=== PATIENT | male | born 1965 | race Caucasian/White ===

== ENCOUNTER 2020-02-18 18:09 | Emergency (ER) | payer OTHER ==
[2020-02-18 18:17] VITALS: BP 188/98; PULSE 86; RESP 16; TEMP 98.2
== END 2020-02-18 19:05 ==
LOC: EC 18:09
DX: Z02.89 Encounter for other administrative examinations (principal); Y99.0 Civilian activity done for income or pay
CPT/HCPCS: 99499

== ENCOUNTER 2020-08-17 12:06 | Emergency (ER) | payer OTHER ==
[2020-08-17 12:16] VITALS: RESP 18
[2020-08-17] MEDS ORDERED: ACET/COD 300 MG/30 MG STARTER PACK 6 TAB BTL PO STA (12:22)
[2020-08-17] MEDS ORDERED: KETOROLAC 15 MG/ML 1 ML VIAL IM STA (12:22)
--- NOTE | 2020-08-17 12:40 | ED ---
Fall HPI - General Chief Complaint: Fall Stated Complaint: [facility] - fall Time Seen by Provider: 08/17/20 12:17 Source: patient Mode of arrival: ambulatory - History of Present Illness Initial Comments: 55yo male presenting for fall low back pain. .pt states today he was getting out his work vehicle when he slipped on ice and fell onto his tailbone, he states his head hit the ground after his buttom. he denies LOC or use of blood thinners. he states that he did not notice any lumps/lacerations. states the area is somewhat tender to palpation. patient states that he came to the ER for evaluation of low back pain. patient denies radiation down legs, leg weakness, sensation deficits, urinary retention, loss of bowel badder control, IVDU, hx of cancer or fevers. pt denies neck pain, nausesa, vomiting, visual changes, headaches, patient appears nontoxic denies other areas of injury on arrival. - Related Data Home Medications Medication Instructions Recorded Confirmed Albuterol Nebulized [Ventolin 2.5 mg INHALATION RT-Q4H PRN 02/18/20 08/17/20 Nebulized] Albuterol Sulfate [Ventolin HFA] 1 - 2 puff INHALATION RT-Q6H PRN 02/18/20 1 10/18/19 Fluticasone/Umeclidin/Vilanter 1 puff INHALATION RT-DAILY 02/18/20 08/17/20 [Trelegy Ellipta 100-62.5-25] lisinopriL [Zestril] 20 mg PO DAILY 02/18/20 08/17/20 Fexofenadine HCl [Jordyn Allergy] 180 mg PO DAILY 08/17/20 08/17/20 Allergies Allergy/AdvReac Type Severity Reaction Status Date / Time ampicillin Allergy Unknown Verified 08/17/20 13:01 Review of Systems ROS Statement: Those systems with pertinent positive or pertinent negative responses have been documented in the HPI. ROS Other: All systems not noted in ROS Statement are negative. Past Medical History Past Medical History: COPD, Hypertension History of Any Multi-Drug Resistant Organisms: None Reported Past Surgical History: Tonsillectomy Past Psychological History: No Psychological Hx Reported Smoking Status: Current some day smoker Past Alcohol Use History: Daily Past Drug Use History: None Reported General Exam - General Exam Comments Initial Comments: General: The patient is awake and alert, in no distress, and does not appear acutely ill. Eye: Pupils are equal, round and reactive to light, extra-ocular movements are intact. No nystagmus. There is normal conjunctiva bilaterally. No signs of icterus. Ears, nose, mouth and throat: There are moist mucous membranes and no oral lesions. Neck: The neck is supple, there is no tenderness or JVD. No midline tenderness to palpation the cervical spine full range motion cervical spine without difficulty. No raccoon or Barksdale sign Cardiovascular: There is a regular rate and rhythm. No murmur, rub or gallop is appreciated. Respiratory: Lungs are clear to auscultation, respirations are non-labored, breath sounds are equal. No wheezes, stridor, rales, or rhonchi. Gastrointestinal: Soft, non-distended, non-tender abdomen without masses or organomegaly noted. There is no rebound or guarding present. Musculoskeletal: Patient has a midline tenderness to patient of the lumbar spine as well as para spinal tenderness. No skin changes. No flank pain or ecchymosis. Normal ROM, no tenderness. Strength 5/5 of the LE b/l. Sensation intact of the LE b/l. Radial pulses equal bilaterally 2+. Neurological: A&O x 3. CN II-XII intact, There are no obvious motor or sensory deficits. Coordination appears grossly intact. Speech is normal. Skin: Skin is warm and dry and no rashes or lesions are noted. Psychiatric: Cooperative, appropriate mood & affect, normal judgment. Limitations: no limitations Course Vital Signs 08/17/20 08/17/20 12:12 14:24 Temperature 98.4 F 98.2 F Pulse Rate 96 85 Respiratory 18 18 Rate Blood Pressure 162/84 129/79 O2 Sat by Pulse 94 L Oximetry Medical Decision Making - Medical Decision Making Refused head imaging. No midline neck pain. no occipital or scalp hematomas. no blood thinners. pt imaging of spine no acute osseous process evident. patient ambulatory with complaining of no symptoms/signs concerning for cauda equina. pt urinated while in ER. Ambulatory he is agreeable to discharge [facility] PCP f/u. Disposition Clinical Impression: Fall, Coccygeal pain, Low back pain, Fall from slipping on ice Disposition: HOME SELF-CARE Condition: Good Instructions (If sedation given, give patient instructions): Low Back Strain (ED) Is patient prescribed a controlled substance at d/c from ED?: No Referrals: Wolf Irizarry MD [Primary Care Provider] - 1-2 days
--- NOTE | 2020-08-17 13:48 | XR ---
EXAMINATION TYPE: XR lumbar spine 2 or 3V DATE OF EXAM: 08/17/2020 COMPARISON: None HISTORY: Pain fall TECHNIQUE: There 5 lumbar-type vertebral bodies. FINDINGS: Pedicles are intact. L5-S1 disc height is narrowed. Remaining disc heights are preserved. Vertebral body heights are preserved. Alignment is normal. IMPRESSION: 1. Loss of disc height L5-S1
--- NOTE | 2020-08-17 13:49 | XR ---
EXAMINATION TYPE: XR sacrum coccyx DATE OF EXAM: 08/17/2020 COMPARISON: None HISTORY: Fall, pain TECHNIQUE: Sacrum and coccyx are examined in 3 projections. FINDINGS: Sacroiliac joints are patent. The sacrum appears intact. Coccyx appears normal. No acute fr actures are evident. There is loss of disc height L5-S1. IMPRESSION: 1. Loss of disc height at L5-S1. Sacrum and coccyx appear intact
[2020-08-17 14:27] VITALS: BP 129/79; PULSE 85; TEMP 98.2
== END 2020-08-17 14:27 | disposition home or self-care (01) ==
LOC: EC 12:06
DX: M53.3 Sacrococcygeal disorders, not elsewhere classified (principal); M54.5 Low back pain; F17.200 Nicotine dependence, unspecified, uncomplicated; Z88.0 Allergy status to penicillin; J44.9 Chronic obstructive pulmonary disease, unspecified; I10 Essential (primary) hypertension; Z79.51 Long term (current) use of inhaled steroids; Z79.899 Other long term (current) drug therapy; W00.0XXA Fall on same level due to ice and snow, initial encounter; Y93.89 Activity, other specified; Y92.69 Other specified industrial and construction area as the place of occurrence of the external cause; Y99.0 Civilian activity done for income or pay
CPT/HCPCS: 72100; 72220; 96372; 99283; J1885

== ENCOUNTER 2020-10-27 05:51 | Inpatient (IN) | payer OTHER ==
[2020-10-27] MEDS ORDERED: IPRATROPIUM-ALBUTEROL 3 ML NEB INHALATION STA ×2 (06:04→06:44)
[2020-10-27 06:28] LABS: Basophils % (A) 0 %; Eosinophils # (A) 0.3 k/uL (0-0.7); Eosinophils % (A) 2 %; HCT 45.6 % (39.0-53.0); HGB 14.7 gm/dL (13.0-17.5); Lymphocytes # (A) 0.7 k/uL (1.0-4.8); Lymphocytes % (A) 4 %; MCH 29.7 pg (25.0-35.0); MCHC 32.3 g/dL (31.0-37.0); MCV 91.8 fL (80.0-100.0); Mean Platelet Volume 7.4; Monocytes # (A) 0.1 k/uL (0-1.0); Monocytes % (A) 1 %; Neutrophils % (A) 93 %; Platelet Count 347 k/uL (150-450); RBC 4.97 m/uL (4.30-5.90); RDW 12.8 % (11.5-15.5); WBC 17.2 k/uL (3.8-10.6)
[2020-10-27 06:40] LABS: ALT 33 U/L (4-49); AST 33 U/L (17-59); African American GFR (CKD) >90 (>60 ml/min/1.73 sqM); Albumin 4.2 g/dL (3.5-5.0); Alkaline Phosphatase 156 U/L (38-126); Anion Gap 6 mmol/L; Blood Urea Nitrogen 21 mg/dL (9-20); Calcium 8.7 mg/dL (8.4-10.2); Carbon Dioxide 35 mmol/L (22-30); Chloride 88 mmol/L (98-107); Glucose 191 mg/dL (74-99); Non-African American GFR(CKD) >90 (>60 ml/min/1.73 sqM); Potassium 5.5 mmol/L (3.5-5.1); Sodium 129 mmol/L (137-145); Total Bilirubin 0.7 mg/dL (0.2-1.3); Total Protein 7.9 g/dL (6.3-8.2)
[2020-10-27 06:42] LABS: INR 1.1 (<1.2); Partial Thromboplastin Time 49.1 sec (22.0-30.0); Prothrombin Time 11.2 sec (9.0-12.0)
[2020-10-27] MEDS ORDERED: IPRATROPIUM-ALBUTEROL 3 ML NEB INHALATION PRN (06:45)
--- NOTE | 2020-10-27 06:45 | ED ---
General Adult HPI - General Chief complaint: Shortness of Breath Stated complaint: CHERI Time Seen by Provider: 10/27/20 06:05 Source: patient, EMS Mode of arrival: EMS Limitations: no limitations - History of Present Illness Initial comments: 55-year-old male with history of COPD, antitrypsin deficiency(?). presenting for cc of dyspnea. Patient states that he has had shortest of breath for the past 4 days he states his DuoNeb treatments are not working but he feels wheezy and tight like his previous COPD exacerbations. Patient states he believes he has antitrypsin deficiency and he does follow pulmonology. Patient states that after 4 days of no improvement do not be presented to [facility]. Patient states he also had a slight cough with sputum production. He states at times after the epidural treatments he had some tightness in his chest. Patient states they always make him feel anxious. At [facility] patient had cardiac enzymes performed which revealed mild elevation at 0.071 troponin, BNP was within normal limits CT and she O for pulmonary embolism revealed no aneurysms, pulmonary embolism's however there was some nodular abnormalities which they stated were more consistent with infectious etiology. Patient does h ave mild leukocytosis he is afebrile, does not appear toxic. He was initiated on heparin at [facility] prior to transfer. - Related Data Home Medications Medication Instructions Recorded Confirmed Albuterol Nebulized [Ventolin 2.5 mg INHALATION RT-Q4H PRN 02/18/20 08/17/20 Nebulized] Albuterol Sulfate [Ventolin HFA] 1 - 2 puff INHALATION RT-Q6H PRN 02/18/20 08/17/20 Fluticasone/Umeclidin/Vilanter 1 puff INHALATION RT-DAILY 02/18/20 08/17/20 [Trelegy Ellipta 100-62.5-25] lisinopriL [Zestril] 20 mg PO DAILY 02/18/20 08/17/20 Fexofenadine HCl [Jordyn Allergy] 180 mg PO DAILY 08/17/20 08/17/20 Allergies Allergy/AdvReac Type Severity Reaction Status Date / Time ampicillin Allergy Unknown Verified 08/17/20 13:01 Review of Systems ROS Statement: Those systems with pertinent positive or pertinent negative responses have been documented in the HPI. ROS Other: All systems not noted in ROS Statement are negative. Past Medical History Past Medical History: COPD, Hypertension History of Any Multi-Drug Resistant Organisms: None Reported Past Surgical History: Tonsillectomy Past Psychological History: No Psychological Hx Reported Smoking Status: Former smoker Past Alcohol Use History: Occasional Past Drug Use History: None Reported General Exam - General Exam Comments Initial Comments: General: The patient is awake and alert, in no distress Eye: +3 mm pupils are equal, round and reactive to light, extra-ocular movements are intact. No nystagmus. There is normal conjunctiva bilaterally. No signs of icterus. Ears, nose, mouth and throat: There are moist mucous membranes and no oral lesions. Neck: The neck is supple, there is no tenderness or JVD. Cardiovascular: There is a regular rate and rhythm. No murmur, rub or gallop is appreciated. Respiratory: Normal air movement. are slightly labored when talking, improved at rest, breath sounds are equal. faint expiratory wheeze appreciated however all over there is minimal movement limiting assessment. Gastrointestinal: Soft, non-distended, non-tender abdomen without masses or organomegaly noted. There is no rebound or guarding present. Musculoskeletal: Normal ROM, no tenderness. Strength 5/5. Sensation intact. Radial and DP pulses equal bilaterally 2+. Neurological: A&O x 3. CN II-XII intact grossly, There are no obvious motor or sensory deficits. Coordination appears grossly intact. Speech is normal. Skin: Skin is warm and dry and no rashes or lesions are noted. No calf pain, no LE edema. Psychiatric: Cooperative, appropriate mood & affect, normal judgment. Limitations: no limitations Course Vital Signs 10/27/20 10/27/20 10/27/20 05:53 06:11 06:17 Temperature 97.6 F Pulse Rate 101 H 96 100 Respiratory 18 Rate Blood Pressure 124/89 O2 Sat by Pulse 93 L Oximetry 10/27/20 06:49 Temperature Pulse Rate 98 Respiratory 20 Rate Blood Pressure O2 Sat by Pulse Oximetry Medical Decision Making - Medical Decision Making Troponin repeat (-). Patient physical exam most consistent with COPD exacerbation, minimal air movement, wheeze appreciated. patient case discussed [facility] Cardiology given anteriolateral EKG findings. Dr. Pope spoke with Dr Roberto saeed. At this time we will admit patient for further monitoring and treatment of suspected COPD exacerbation. - Lab Data Result diagrams: 10/27/20 06:12 10/27/20 06:12 Lab Results 10/27/20 10/27/20 10/27/20 Range/Units 06:12 06:12 06:12 WBC 17.2 H (3.8-10.6) k/uL RBC 4.97 (4.30-5.90) m/uL Hgb 14.7 (13.0-17.5) gm/dL Hct 45.6 (39.0-53.0) % MCV 91.8 (80.0-100.0) fL MCH 29.7 (25.0-35.0) pg MCHC 32.3 (31.0-37.0) g/dL RDW 12.8 (11.5-15.5) % Plt Count 347 (150-450) k/uL MPV 7.4 Neutrophils % 93 % Lymphocytes % 4 % Monocytes % 1 % Eosinophils % 2 % Basophils % 0 % Neutrophils # 16.0 H (1.3-7.7) k/uL Lymphocytes # 0.7 L (1.0-4.8) k/uL Monocytes # 0.1 (0-1.0) k/uL Eosinophils # 0.3 (0-0.7) k/uL Basophils # 0.0 (0-0.2) k/uL PT 11.2 (9.0-12.0) sec INR 1.1 (<1.2) APTT 49.1 H (22.0-30.0) sec Sodium 129 L (137-145) mmol/L Potassium 5.5 H (3.5-5.1) mmol/L Chloride 88 L (98-107) mmol/L Carbon Dioxide 35 H (22-30) mmol/L Anion Gap 6 mmol/L BUN 21 H (9-20) mg/dL Creatinine 0.47 L (0.66-1.25) mg/dL Est GFR (CKD-EPI)AfAm >90 (>60 ml/min/1.73 sqM) Est GFR (CKD-EPI)NonAf >90 (>60 ml/min/1.73 sqM) Glucose 191 H (74-99) mg/dL Plasma Lactic Acid Andrei (0.7-2.0) mmol/L Calcium 8.7 (8.4-10.2) mg/dL Total Bilirubin 0.7 (0.2-1.3) mg/dL AST 33 (17-59) U/L ALT 33 (4-49) U/L Alkaline Phosphatase 156 H (38-126) U/L Troponin I (0.000-0.034) ng/mL Total Protein 7.9 (6.3-8.2) g/dL Albumin 4.2 (3.5-5.0) g/dL 10/27/20 10/27/20 Range/Units 06:12 06:12 WBC (3.8-10.6) k/uL RBC (4.30-5.90) m/uL Hgb (13.0-17.5) gm/dL Hct (39.0-53.0) % MCV (80.0-100.0) fL MCH (25.0-35.0) pg MCHC (31.0-37.0) g/dL RDW (11.5-15.5) % Plt Count (150-450) k/uL MPV Neutrophils % % Lymphocytes % % Monocytes % % Eosinophils % % Basophils % % Neutrophils # (1.3-7.7) k/uL Lymphocytes # (1.0-4.8) k/uL Monocytes # (0-1.0) k/uL Eosinophils # (0-0.7) k/uL Basophils # (0-0.2) k/uL PT (9.0-12.0) sec INR (<1.2) APTT (22.0-30.0) sec Sodium (137-145) mmol/L Potassium (3.5-5.1) mmol/L Chloride (98-107) mmol/L Carbon Dioxide (22-30) mmol/L Anion Gap mmol/L BUN (9-20) mg/dL Creatinine (0.66-1.25) mg/dL Est GFR (CKD-EPI)AfAm (>60 ml/min/1.73 sqM) Est GFR (CKD-EPI)NonAf (>60 ml/min/1.73 sqM) Glucose (74-99) mg/dL Plasma Lactic Acid Andrei 1.2 (0.7-2.0) mmol/L Calcium (8.4-10.2) mg/dL Total Bilirubin (0.2-1.3) mg/dL AST (17-59) U/L ALT (4-49) U/L Alkaline Phosphatase (38-126) U/L Troponin I 0.024 (0.000-0.034) ng/mL Total Protein (6.3-8.2) g/dL Albumin (3.5-5.0) g/dL Disposition Clinical Impression: Dyspnea, COPD exacerbation, Troponin level elevated Disposition: ADMITTED IP TO THIS HOSP Condition: Stable Is patient prescribed a controlled substance at d/c from ED?: No Referrals: Wolf Irizarry MD [Primary Care Provider] - 1-2 days Time of Disposition: 06:45 Decision to Admit Reason: Admit from EC Decision Date: 10/27/20 Decision Time: 06:45
[2020-10-27] MEDS ORDERED: guaiFENesin 600 MG TABLET.ER PO SCH (09:00)
[2020-10-27] MEDS ORDERED: predniSONE 20 MG TAB PO SCH (09:00)
[2020-10-27] MEDS: SODIUM CHLORIDE 0.9% 1,000 ML IV SCH ×2 (09:24→21:09)
[2020-10-27] MEDS: IPRATROPIUM-ALBUTEROL 3 ML NEB INHALATION SCH ×5 (09:30→21:20)
[2020-10-27 11:09] LABS: Cholesterol 196 mg/dL (<200); HDL Cholesterol 67 mg/dL (40-60); LDL Cholesterol,Calculated 120 mg/dL (0-99); Triglycerides 47 mg/dL (<150)
--- NOTE | 2020-10-27 11:14 | ECHOF ---
Referral Reason:dyspnea, trop elev MEASUREMENTS -------- HEIGHT: 182.9 cm WEIGHT: 77.1 kg BP: 128/78 RVIDd: 2.9 cm (< 3.3) IVSd: 1.1 cm (0.6 - 1.1) LVIDd: 3.7 cm (3.9 - 5.3) LVPWd: 1.1 cm (0.6 - 1.1) IVSs: 1.6 cm LVIDs: 2.6 cm LVPWs: 1.6 cm LA Diam: 3.0 cm (2.7 - 3.8) Ao Diam: 3.4 cm (2.0 - 3.7) AV Cusp: 2.0 cm (1.5 - 2.6) MV EXCURSION: 14.837 mm (> 18.000) MV EF SLOPE: 88 mm/s (70 - 150) EPSS: 0.9 cm MV E Tomas: 0.76 m/s MV DecT: 170 ms MV A Tomas: 0.71 m/s MV E/A Ratio: 1.07 RAP: 5.00 mmHg RVSP: 36.37 mmHg FINDINGS -------- Sinus rhythm. This was a technically adequate study. The left ventricular size is normal. There is borderline concentric left ventricular hypertrophy. Overall left ventricular systolic function is normal with, an EF between 60 - 65 %. The right ventricle is normal in size. The left atrium is normal in size. The right atrium is normal in size. Interatrial and interventricular septum intact. The aortic valve is trileaflet and appears structurally normal. There is trace mitral regurgitation. Mild tricuspid regurgitation present. There is mild pulmonary hypertension. The right ventricular systolic pressure, as measured by Doppler, is 36.37mmHg. The pulmonic valve was not well visualized. The aortic root size is normal. Normal inferior vena cava with normal inspiratory collapse consistent with estimated right atrial pre ssure of 5 mmHg. There is no pericardial effusion. CONCLUSIONS -------- 1. The left ventricular size is normal. 2. There is borderline concentric left ventricular hypertrophy. 3. Overall left ventricular systolic function is normal with, an EF between 60 - 65 %. 4. There is trace mitral regurgitation. 5. Mild tricuspid regurgitation present. 6. There is mild pulmonary hypertension. 7. The right ventricular systolic pressure, as measured by Doppler, is 36.37mmHg. 8. There is no pericardial effusion. CONDITIONER TUMBLER: Caprice Hughes RDCS
--- NOTE | 2020-10-27 11:26 | P.CRDCN ---
History of Present Illness History of present illness: HISTORY OF PRESENTING ILLNESS This is a pleasant 55-year-old male past medical history significant for hypertension, COPD, alpha 1 antitrypsin and former nicotine dependence. He denies prior history of coronary artery disease and does not follow in the office with a director ambulatory. We have been asked to see in consultation for elevated troponin. He presented to [facility] with symptoms of shortness of breath and cough that has been going on for the previous one week and getting progressively worse. His symptoms are not improving using his home inhaler or nebulizers. His workup at [facility] included labs that revealed an elevated troponin of 0.071 and normal BNP. He was sent here for further evaluation. His troponin on arrival here was 0.024. He complains of chest discomfort at times when he is coughing. His pain is related to breathing. He has no exertional chest discomfort. He denies dizziness or palpitations. He follows with Dr. Gaytan. CAT scan of the chest was performed at [facility] that was negative for pulmonary embolism. Other laboratory data reviewed, WBC 17.2, hemoglobin 14.7, platelets 347, sodium 129, potassium 5.5 and creatinine 0.47. Chronic daily cardiac medications include lisinopril 20 mg daily. Echocardiogram obtained on this admission reveals preserved LV systolic function with ejection fraction 60-65%. EKG reveals sinus mechanism with no acute ST or T-wave abnormalities with biphasic P wave. REVIEW OF SYSTEMS At the time of my exam: CONSTITUTIONAL: Denies fever or chills. CARDIOVASCULAR: Denies chest pain, shortness of breath, orthopnea, PND or palpitations. RESPIRATORY: Denies cough. GASTROINTESTINAL: Denies abdominal pain, diarrhea, constipation, nausea or vomiting. MUSCULOSKELETAL: Denies myalgias. NEUROLOGIC: Denies numbness, tingling, headacbe or weakness. ENDOCRINE: Denies fatigue, weight change, polydipsia or polyurina. GENITOURINARY: Denies burning, hematuria or urgency with micturation. HEMATOLOGIC: Denies history of anemia or bleeding. PHYSICAL EXAMINATION Blood pressure 128/78 heart rate 92 afebrile and maintaining oxygen saturation on nasal cannula. CONSTITUTIONAL: No apparent distress. HEENT: Head is normocephalic. Pupils are equal, round. Sclerae anicteric. Mucous membranes of the mouth are moist. No JVD. No carotid bruit. CHEST EXAMINATION: Diminished air entry bilaterally, scattered rhonchi, no wheezes. No chest wall tenderness is noted on palpation or with deep breathing. HEART EXAMINATION: Regular rate and rhythm. S1, S2 heard. No murmurs, gallops or rub. ABDOMEN: Soft, nontender. Positive bowel sounds. EXTREMITIES: 2+ peripheral pulses, no lower extremity edema and no calf tenderness. NEUROLOGIC EXAMINATION: Patient is awake, alert and oriented x3. ASSESSMENT Shortness of breath Hypertension COPD Former nicotine dependence PLAN Mild troponin leak noted is not related to primary myocardial injury. Possibly related to some hypoxia however there is no documented hypoxia. No EKG changes to suggest ischemia. Echocardiogram has been reviewed, preserved LV systolic function with no wall motion abnormalities noted. Expect much of his shortness of breath is related to an exacerbation of COPD, awaiting pulmonary evaluation. Thank you kindly for this consultation. Nurse Practitioner note has been reviewed, I agree with a documented findings and plan of care. Patient was seen and examined. Past Medical History Past Medical History: Asthma, COPD, Hypertension Additional Past Medical History / Comment(s): Bronchitis, Alpha 1 antitrypsin deficiency, pancreatitis. History of Any Multi-Drug Resistant Organisms: None Reported Past Surgical History: Tonsillectomy Additional Past Surgical History / Comment(s): Colonoscopy Past Anesthesia/Blood Transfusion Reactions: No Reported Reaction Smoking Status: Former smoker - Past Family History Mother Family Medical History: Hypertension Additional Family Medical History / Comment(s): Hip/knee replacements. Mother in her sleep in her 70s. Father Family Medical History: CVA/TIA Additional Family Medical History / Comment(s): Father is . Medications and Allergies Home Medications Medication Instructions Recorded Confirmed Type Albuterol Nebulized [Ventolin 2.5 mg INHALATION RT-TID PRN 02/18/20 10/27/20 History Nebulized] Albuterol Sulfate [Ventolin HFA] 2 puff INHALATION RT-Q4H PRN 02/18/20 10/27/20 History Fluticasone/Umeclidin/Vilanter 1 puff INHALATION RT-DAILY 02/18/20 10/27/20 History [Trelegy Ellipta 100-62.5-25] lisinopriL [Zestril] 20 mg PO DAILY@1400 02/18/20 10/27/20 History Ascorbic Acid [Vitamin C] 500 mg PO DAILY 10/27/20 10/27/20 History Melatonin 5 mg PO HS 10/27/20 10/27/20 History Mirtazapine 7.5 mg PO HS 10/27/20 10/27/20 History Multivitamins, Thera [Multivitamin 1 tab PO DAILY 10/27/20 10/27/20 History (formulary)] Allergies Allergy/AdvReac Type Severity Reaction Status Date / Time ampicillin Allergy Unknown Verified 10/27/20 07:19 Childhood Penicillins Allergy Unknown Verified 10/27/20 07:19 Childhood Physical Exam Vitals: Vital Signs Temp Pulse Resp BP Pulse Ox 10/27/20 09:40 92 10/27/20 09:30 88 10/27/20 07:44 92 18 128/78 96 10/27/20 06:57 98 20 10/27/20 06:49 98 20 10/27/20 06:17 100 10/27/20 06:11 96 10/27/20 05:53 97.6 F 101 H 18 124/89 93 L Intake and Output 10/26/20 10/27/20 10/27/20 22:59 06:59 14:59 Other: # Voids 1 Weight 77.111 kg 77.111 kg Results 10/27/20 06:12 10/27/20 06:12 Cardiac Enzymes 10/27/20 10/27/20 Range/Units 06:12 06:12 AST 33 (17-59) U/L Troponin I 0.024 (0.000-0.034) ng/mL Coagulation 10/27/20 Range/Units 06:12 PT 11.2 (9.0-12.0) sec APTT 49.1 H (22.0-30.0) sec Lipids 10/27/20 Range/Units 06:12 Triglycerides 47 (<150) mg/dL Cholesterol 196 (<200) mg/dL HDL Cholesterol 67 H (40-60) mg/dL CBC 10/27/20 Range/Units 06:12 WBC 17.2 H (3.8-10.6) k/uL RBC 4.97 (4.30-5.90) m/uL Hgb 14.7 (13.0-17.5) gm/dL Hct 45.6 (39.0-53.0) % Plt Count 347 (150-450) k/uL Comprehensive Metabolic Panel 10/27/20 Range/Units 06:12 Sodium 129 L (137-145) mmol/L Potassium 5.5 H (3.5-5.1) mmol/L Chloride 88 L (98-107) mmol/L Carbon Dioxide 35 H (22-30) mmol/L BUN 21 H (9-20) mg/dL Creatinine 0.47 L (0.66-1.25) mg/dL Glucose 191 H (74-99) mg/dL Calcium 8.7 (8.4-10.2) mg/dL AST 33 (17-59) U/L ALT 33 (4-49) U/L Alkaline Phosphatase 156 H (38-126) U/L Total Protein 7.9 (6.3-8.2) g/dL Albumin 4.2 (3.5-5.0) g/dL Current Medications Generic Name Dose Route Start Last Admin Trade Name Freq PRN Reason Stop Dose Admin Albuterol/Ipratropium 3 ml 10/27/20 10:00 10/27/20 09:30 Ipratropium-Albuterol 3 Ml Neb INHALATION 3 ml Q3H CLAUDE Administration Albuterol/Ipratropium 3 ml 10/27/20 06:45 Ipratropium-Albuterol 3 Ml Neb INHALATION RT-Q4H PRN Shortness Of Breath Or Wheezing Ascorbic Acid 500 mg 10/27/20 11:15 Ascorbic Acid 500 Mg Tab PO DAILY [facility] Guaifenesin 1,200 mg 10/27/20 09:00 10/27/20 09:20 Guaifenesin 600 Mg Tablet.Er PO 1,200 mg Q12HR CLAUDE Administration Sodium Chloride 1,000 mls @ 75 mls/hr 10/27/20 07:00 10/27/20 09:24 Saline 0.9% IV 75 mls/hr .[id number] CLAUDE Administration Lisinopril 20 mg 10/27/20 14:00 Lisinopril 20 Mg Tab PO DAILY@1400 [facility] Melatonin 5 mg 10/27/20 21:00 Melatonin 5 Mg Tablet PO HS [facility] Mirtazapine 7.5 mg 10/27/20 21:00 Mirtazapine 15 Mg Tab PO HS [facility] Multivitamins 1 each 10/27/20 11:15 Multivitamins, Thera 1 Each Tab PO DAILY [facility] Prednisone 40 mg 10/27/20 09:00 10/27/20 09:20 Prednisone 20 Mg Tab PO 40 mg DAILY CLAUDE Administration Intake and Output 10/26/20 10/27/20 10/27/20 22:59 06:59 14:59 Other: # Voids 1 Weight 77.111 kg 77.111 kg Patient Weight 10/28/20 06:59 Weight 77.111 kg 10/27/20 06:12 10/27/20 06:12
--- NOTE | 2020-10-27 11:28 | P.CNPUL ---
History of Present Illness Consult date: 10/27/20 Requesting physician: Rigo Solomon Reason for consult: dyspnea, cough, COPD, hypoxemia Chief complaint: Shortness of breath History of present illness: 55-year-old male with a history of severe COPD. The patient was last seen by my partner in July 2020. In his note, my partner points out that the patient's FEV1 is 19% of predicted, and his diffusing capacity corrected for alveolar volu me is only 40%. Hence, the patient has stage IV/end-stage emphysema. The patient was brought to the emergency room by EMS. He arrived on 10/27/2020, at 05 51. His complaint was that of increasing shortness of breath. He been short of breath for about 4 days. He was using his updraft treatments at home but they were not working. He was quite tight in the chest, and was wheezing. He was also coughing and producing some phlegm. He denied any fever or chills. He denied any chest pain or chest discomfort. The patient was admitted with a diagnosis of COPD exacerbation. He was initially seen at [facility], and transferred down for further treatment. His family doctors here in [facility]. Currently, the patient is receiving oxygen at 5 L. He appears to be improved somewhat. He's feeling better and is less short of breath. 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 He did not qualify for replacement therapy. In addition to COPD, the patient has a history of hypertension. Review of Systems REVIEW OF SYSTEMS: CONSTITUTIONAL: [Negative.] NEUROLOGIC: [ Negative.] HEENT: [ Negative.] CARDIAC: [Negative.] PULMONARY: Severe shortness of breath, chest tightness, cough, wheezing, and minimal phlegm production. GI: [Negative.] : [Negative.] RHEUMATOLOGIC: [ Negative.] IMMUNOLOGIC: [ Negative.] ENDOCRINE: [Negative. ] DERMATOLOGIC: [Negative.] Past Medical History Past Medical History: Asthma, COPD, Hypertension Additional Past Medical History / Comment(s): Bronchitis, Alpha 1 antitrypsin deficiency, pancreatitis. History of Any Multi-Drug Resistant Organisms: None Reported Past Surgical History: Tonsillectomy Additional Past Surgical History / Comment(s): Colonoscopy Past Anesthesia/Blood Transfusion Reactions: No Reported Reaction Smoking Status: Former smoker - Past Family History Mother Family Medical History: Hypertension Additional Family Medical History / Comment(s): Hip/knee replacements. Mother in her sleep in her 70s. Father Family Medical History: CVA/TIA Additional Family Medical History / Comment(s): Father is . Medications and Allergies Home Medications Medication Instructions Recorded Confirmed Type Albuterol Nebulized [Ventolin 2.5 mg INHALATION RT-TID PRN 02/18/20 10/27/20 History Nebulized] Albuterol Sulfate [Ventolin HFA] 2 puff INHALATION RT-Q4H PRN 02/18/20 10/27/20 History Fluticasone/Umeclidin/Vilanter 1 puff INHALATION RT-DAILY 02/18/20 10/27/20 History [Trelecynthia Ellipta 100-62.5-25] lisinopriL [Zestril] 20 mg PO DAILY@1400 02/18/20 10/27/20 History Ascorbic Acid [Vitamin C] 500 mg PO DAILY 10/27/20 10/27/20 History Melatonin 5 mg PO HS 10/27/20 10/27/20 History Mirtazapine 7.5 mg PO HS 10/27/20 10/27/20 History Multivitamins, Thera [Multivitamin 1 tab PO DAILY 10/27/20 10/27/20 History (formulary)] Allergies Allergy/AdvReac Type Severity Reaction Status Date / Time ampicillin Allergy Unknown Verified 10/27/20 07:19 Childhood Penicillins Allergy Unknown Verified 10/27/20 07:19 Childhood Physical Exam Osteopathic Statement: *. No significant issues noted on an osteopathic structural exam other than those noted in the History and Physical/Consult. Vitals: Vital Signs Temp Pulse Resp BP Pulse Ox 10/27/20 09:40 92 10/27/20 09:30 88 10/27/20 07:44 92 18 128/78 96 10/27/20 06:57 98 20 10/27/20 06:49 98 20 10/27/20 06:17 100 10/27/20 06:11 96 10/27/20 05:53 97.6 F 101 H 18 124/89 93 L Intake and Output 10/26/20 10/27/20 10/27/20 22:59 06:59 14:59 Other: # Voids 1 Weight 77.111 kg 77.111 kg No acute distress, oriented 3. Nasal O2 in place. The patient appears to be bit confused. Not a particularly good historian. No conversational dyspnea, or audible wheezing. HEENT examination is grossly unremarkable. Mucous membranes are moist. No oral lesions. Neck supple. Full range of motion. No adenopathy thyromegaly or neck vein distention. Cardiovascular examination reveals regular rhythm rate. S1-S2 normal. No S3 or S4. No discernible murmur noted. Heart rate is 92 bpm. Lungs reveal severely diminished bilateral breath sounds. Some expiratory wheezes are noted. No rhonchi or crackles. There is prolongation on forced maneuver. Abdomen soft bowel sounds are heard. No masses or tenderness. Extremities are intact. No cyanosis clubbing or edema. Skin is without rash or lesion. Neurologic examination is brief but nonfocal. Results - Laboratory Findings CBC and BMP: 10/27/20 06:12 10/27/20 06:12 PT/INR, D-dimer PT 11.2 sec (9.0-12.0) 10/27/20 06:12 INR 1.1 (<1.2) 10/27/20 06:12 Abnormal lab findings: Abnormal Labs 10/27/20 10/27/20 10/27/20 06:12 06:12 06:12 WBC 17.2 H Neutrophils # 16.0 H Lymphocytes # 0.7 L APTT 49.1 H Sodium 129 L Potassium 5.5 H Chloride 88 L Carbon Dioxide 35 H BUN 21 H Creatinine 0.47 L Glucose 191 H Alkaline Phosphatase 156 H LDL Cholesterol, Calc HDL Cholesterol 10/27/20 06:12 WBC Neutrophils # Lymphocytes # APTT Sodium Potassium Chloride Carbon Dioxide BUN Creatinine Glucose Alkaline Phosphatase LDL Cholesterol, Calc 120 H HDL Cholesterol 67 H - Diagnostic Findings Chest x-ray: image reviewed Assessment and Plan Assessment: Acute hypoxemic respiratory failure, secondary to COPD exacerbation. Severe/stage IV/end-stage COPD, with an FEV1 that is 19% of predicted, and diffusing capacity corrected for alveolar volume which is 40%. Prior history of heavy tobacco use. History of essential hypertension. Plan: Plan dated 10/27/2020. The patient will need doing neb, 4 times a day and when necessary, Pulmicort 1 mg mixed with formoterol, 20 g, twice a day, and Solu-Medrol 60 mg every 6 hours. In addition, the patient should be placed on a short course of oral antibiotics. The patient has very severe/end-stage COPD, with an FEV1 that's 19% of predicted. The patient will need to follow up with Dr. Gaytan. He did see Dr. Gaytan last in July 2020. Additional recommendations and suggestions are forthcoming. We'll continue to follow make recommendations were appropriate. Prognosis is guarded. Time with Patient: Greater than 30
[2020-10-27] MEDS: ASCORBIC ACID 500 MG TAB PO SCH (12:52)
[2020-10-27] MEDS: ENOXAPARIN 40 MG/0.4 ML SYRINGE SQ SCH (12:52)
[2020-10-27] MEDS: MULTIVITAMINS, THERA 1 EACH TAB PO SCH (12:52)
[2020-10-27] MEDS: lisinopriL 20 MG TAB PO SCH (12:52)
[2020-10-27] MEDS: methylPREDNISolone SOD SUCCI 125 MG/2 ML VIAL IV SCH ×3 (12:53→23:33)
[2020-10-27] MEDS: DOXYCYCLINE 100 MG CAP PO SCH ×2 (12:53→22:21)
[2020-10-27 17:58] LABS: Glucose,Whole Blood 196 mg/dL (75-99)
[2020-10-27] MEDS: INSULIN ASPART (NovoLOG) 100 UNIT/ML VIAL SQ SCH (18:03)
[2020-10-27 20:06] LABS: Glucose,Whole Blood 207 mg/dL (75-99)
--- NOTE | 2020-10-27 20:45 | P.HPIM ---
History of Present Illness H&P Date: 10/27/20 Chief Complaint: Short of breath History of presenting complaint: This is a pleasant 55-year-old patient of Dr. Irizarry. Patient has a history of alpha-1 antitrypsin deficiency and is a neck smoker. Patient presents with 10 days of increasing shortness of breath and wheezing. Producing significant amount of sputum, green in color. Denies any fever and chills. Significant short of breath. Appetite has been okay. Admitted for the same. Pulmonary was consulted. Short of breath at rest Review of systems: GEN.: Tired EYES: None HEENT: None NECK: None RESPIRATORY: As above CARDIOVASCULAR: None GASTROINTESTINAL: None GENITOURINARY: None MUSCULOSKELETAL: None LYMPHATICS: None HEMATOLOGICAL: None PSYCHIATRY: None NEUROLOGICAL: None Past medical history to include: COPD, hypertension, alpha-1 antitrypsin deficiency, pancreatitis Social history: Patient started smoking 89 and stopped in 2019. He drink a bit heavy alcohol to the age of 27. . 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 EYES: Pupils equal. Conjunctiva normal. HEENT: External appearance of nose and ears normal, oral cavity grossly normal. NECK: JVD not raised; masses not palpable. HEART: First and second heart sounds are normal; no edema. LUNGS:[ Respiratory rate increased, decreased breath sounds prolonged expiration and wheezing, accessory muscles a working, not able to speak in full sentences. ABDOMEN: Soft, nontender, liver spleen not palpable, no masses palpable. PSYCH: [Alert and oriented x3; mood and affect slightly anxious. NEUROLOGICAL: Cranial nerves grossly intact; no facial asymmetry, power and sensation grossly intact. LYMPHATICS: No lymph nodes palpable in the axilla and neck INVESTIGATIONS, reviewed in the clinical context: White count 7.2 hemoglobin 14.7 potassium 5.5 bun 21 creatinine 0.47 EKG tracing personally reviewed by me-normal sinus rhythm, right axis deviation 2-D echocardiogram-EF 60-65% Assessment and plan: -Acute severe end-stage COPD exacerbation in an ex-smoker. Patient started on bronchodilators, IV steroids and inhaled steroids. Pulmonary consulted -Acute hypoxic respiratory failure secondary to COPD exacerbation. On supplemental oxygen 6 L -Alpha-1 antitrypsin deficiency -Essential hypertension, continue with lisinopril -Chronic insomnia continue with melatonin -DVT prophylaxis started on Lovenox Care was discussed with the patient. Questions answered. Expect the patient to be in the hospital for at least 2 nights given the severity of his present ation. Past Medical History Past Medical History: Asthma, COPD, Hypertension Additional Past Medical History / Comment(s): Bronchitis, Alpha 1 antitrypsin deficiency, pancreatitis. History of Any Multi-Drug Resistant Organisms: None Reported Past Surgical History: Tonsillectomy Additional Past Surgical History / Comment(s): Colonoscopy Past Anesthesia/Blood Transfusion Reactions: No Reported Reaction Smoking Status: Former smoker - Past Family History Mother Family Medical History: Hypertension Additional Family Medical History / Comment(s): Hip/knee replacements. Mother in her sleep in her 70s. Father Family Medical History: CVA/TIA Additional Family Medical History / Comment(s): Father is . Medications and Allergies Home Medications Medication Instructions Recorded Confirmed Type Albuterol Nebulized [Ventolin 2.5 mg INHALATION RT-TID PRN 02/18/20 10/27/20 History Nebulized] Albuterol Sulfate [Ventolin HFA] 2 puff INHALATION RT-Q4H PRN 02/18/20 10/27/20 History Fluticasone/Umeclidin/Vilanter 1 puff INHALATION RT-DAILY 02/18/20 10/27/20 History [Trelegy Ellipta 100-62.5-25] lisinopriL [Zestril] 20 mg PO DAILY@1400 02/18/20 10/27/20 History Ascorbic Acid [Vitamin C] 500 mg PO DAILY 10/27/20 10/27/20 History Melatonin 5 mg PO HS 10/27/20 10/27/20 History Mirtazapine 7.5 mg PO HS 10/27/20 10/27/20 History Multivitamins, Thera [Multivitamin 1 tab PO DAILY 10/27/20 10/27/20 History (formulary)] Allergies Allergy/AdvReac Type Severity Reaction Status Date / Time ampicillin Allergy Unknown Verified 10/27/20 07:19 Childhood Penicillins Allergy Unknown Verified 10/27/20 07:19 Childhood Physical Exam Vitals: Vital Signs Temp Pulse Resp BP Pulse Ox 10/27/20 09:40 92 10/27/20 09:30 88 10/27/20 07:44 92 18 128/78 96 10/27/20 06:57 98 20 10/27/20 06:49 98 20 10/27/20 06:17 100 10/27/20 06:11 96 10/27/20 05:53 97.6 F 101 H 18 124/89 93 L Intake and Output 10/26/20 10/27/20 10/27/20 22:59 06:59 14:59 Other: # Voids 1 Weight 77.111 kg 77.111 kg Results CBC & Chem 7: 10/27/20 06:12 10/27/20 06:12 Labs: Abnormal Lab Results - Last 24 Hours (Table) 10/27/20 10/27/20 10/27/20 Range/Units 06:12 06:12 06:12 WBC 17.2 H (3.8-10.6) k/uL Neutrophils # 16.0 H (1.3-7.7) k/uL Lymphocytes # 0.7 L (1.0-4.8) k/uL APTT 49.1 H (22.0-30.0) sec Sodium 129 L (137-145) mmol/L Potassium 5.5 H (3.5-5.1) mmol/L Chloride 88 L (98-107) mmol/L Carbon Dioxide 35 H (22-30) mmol/L BUN 21 H (9-20) mg/dL Creatinine 0.47 L (0.66-1.25) mg/dL Glucose 191 H (74-99) mg/dL Alkaline Phosphatase 156 H (38-126) U/L LDL Cholesterol, Calc (0-99) mg/dL HDL Cholesterol (40-60) mg/dL 10/27/20 Range/Units 06:12 WBC (3.8-10.6) k/uL Neutrophils # (1.3-7.7) k/uL Lymphocytes # (1.0-4.8) k/uL APTT (22.0-30.0) sec Sodium (137-145) mmol/L Potassium (3.5-5.1) mmol/L Chloride (98-107) mmol/L Carbon Dioxide (22-30) mmol/L BUN (9-20) mg/dL Creatinine (0.66-1.25) mg/dL Glucose (74-99) mg/dL Alkaline Phosphatase (38-126) U/L LDL Cholesterol, Calc 120 H (0-99) mg/dL HDL Cholesterol 67 H (40-60) mg/dL Thrombosis Risk Factor Assmnt - Choose All That Apply Any of the Below Risk Factors Present?: Yes Each Factor Represents 1 point: Abnormal pulmonary function (COPD), Age 41-60 years, Serious lung disease incl. pneumonia (< 1month) Other Risk Factors: No Other congenital or acquired thrombophilia - If yes, enter type in comment: No Thrombosis Risk Factor Assessment Total Risk Factor Score: 3 Thrombosis Risk Factor Assessment Level: Moderate Risk
[2020-10-27] MEDS: MIRTAZAPINE 15 MG TAB PO SCH (21:06)
[2020-10-27] MEDS: guaiFENesin 600 MG TABLET.ER PO SCH (21:06)
[2020-10-27] MEDS: MELATONIN 5 MG TABLET PO SCH (21:06)
[2020-10-27] MEDS: BUDESONIDE 1 MG/2 ML NEBU INHALATION SCH (21:12)
[2020-10-27] MEDS: FORMOTEROL FUMARATE 20 MCG/2 ML NEBU INHALATION SCH (21:12)
[2020-10-27 21:14] LABS: African American GFR (CKD) >90 (>60 ml/min/1.73 sqM); Anion Gap 12 mmol/L; Blood Urea Nitrogen 20 mg/dL (9-20); Calcium 8.9 mg/dL (8.4-10.2); Carbon Dioxide 30 mmol/L (22-30); Chloride 85 mmol/L (98-107); Glucose 248 mg/dL (74-99); Non-African American GFR(CKD) >90 (>60 ml/min/1.73 sqM); Potassium 5.1 mmol/L (3.5-5.1); Sodium 127 mmol/L (137-145)
[2020-10-28] MEDS: IPRATROPIUM-ALBUTEROL 3 ML NEB INHALATION SCH ×8 (01:14→21:17)
[2020-10-28 06:10] LABS: Glucose,Whole Blood 165 mg/dL (75-99)
[2020-10-28] MEDS: INSULIN ASPART (NovoLOG) 100 UNIT/ML VIAL SQ SCH ×4 (06:28→21:10)
[2020-10-28] MEDS: methylPREDNISolone SOD SUCCI 125 MG/2 ML VIAL IV SCH ×4 (06:28→23:10)
[2020-10-28] MEDS: FORMOTEROL FUMARATE 20 MCG/2 ML NEBU INHALATION SCH ×2 (07:24→21:17)
[2020-10-28] MEDS: BUDESONIDE 1 MG/2 ML NEBU INHALATION SCH ×2 (07:24→21:17)
[2020-10-28] MEDS: MULTIVITAMINS, THERA 1 EACH TAB PO SCH (08:11)
[2020-10-28] MEDS: ENOXAPARIN 40 MG/0.4 ML SYRINGE SQ SCH (08:11)
[2020-10-28] MEDS: SODIUM CHLORIDE 0.9% 1,000 ML IV SCH ×2 (08:11→23:09)
[2020-10-28] MEDS: DOXYCYCLINE 100 MG CAP PO SCH ×2 (08:11→21:09)
[2020-10-28] MEDS: guaiFENesin 600 MG TABLET.ER PO SCH ×4 (08:11→21:10)
[2020-10-28] MEDS: ASCORBIC ACID 500 MG TAB PO SCH (08:11)
[2020-10-28 09:27] LABS: African American GFR (CKD) >90 (>60 ml/min/1.73 sqM); Anion Gap 5 mmol/L; Blood Urea Nitrogen 14 mg/dL (9-20); Carbon Dioxide 39 mmol/L (22-30); Chloride 86 mmol/L (98-107); Glucose 154 mg/dL (74-99); Non-African American GFR(CKD) >90 (>60 ml/min/1.73 sqM); Potassium 5.1 mmol/L (3.5-5.1); Sodium 130 mmol/L (137-145)
--- NOTE | 2020-10-28 09:32 | P.PN ---
Subjective HISTORY OF PRESENTING ILLNESS This is a pleasant 55-year-old male past medical history significant for hypertension, COPD, alpha 1 antitrypsin and former nicotine dependence. He denies prior history of coronary artery disease and does not follow in the office with a rectifying attendant. He is seen and examined sitting up in bed eating breakfast in no acute distress. He continues to feel short of breath. He has no chest pain, dizziness or palpitations. Blood pressure 126/70 heart rate 107 afebrile maintaining oxygen saturation on nasal cannula. Laboratory data reviewed, troponin negative 2, sodium 1:30, potassium 5.1 and creatinine 0.51. Echocardiogram obtained reveals preserved LV systolic function with ejection fraction 60-65%. PHYSICAL EXAMINATION CONSTITUTIONAL: No apparent distress. HEENT: Head is normocephalic. Pupils are equal, round. Sclerae anicteric. Mucous membranes of the mouth are moist. No JVD. No carotid bruit. CHEST EXAMINATION: Diminished air entry bilaterally, scattered rhonchi, no wheezes. No chest wall tenderness is noted on palpation or with deep breathing. HEART EXAMINATION: Regular rate and rhythm. S1, S2 heard. No murmurs, gallops or rub. EXTREMITIES: 2+ peripheral pulses, no lower extremity edema and no calf tenderness. ASSESSMENT Shortness of breath Hypertension Advanced COPD with FeV1 19% Former nicotine dependence PLAN Clinically stable from a cardiac perspective. No evidence to suggest mild troponin leak was related to primary myocardial injury. Ongoing treatment for severe COPD. We will follow along as needed, please call with further questions or concerns. Nurse Practitioner note has been reviewed, I agree with a documented findings and plan of care. Patient was seen and examined. Objective - Vital Signs Vital signs: Vital Signs Temp 97.4 F L 10/28/20 08:00 Pulse 107 H 10/28/20 08:00 Resp 20 10/28/20 08:00 BP 126/70 10/28/20 08:00 Pulse Ox 93 L 10/28/20 08:00 Intake & Output 10/27/20 10/28/20 10/28/20 18:59 06:59 18:59 Intake Total 1560 1500 540 Balance 1560 1500 540 Weight 77.111 kg 68.2 kg Intake: Intake, IV Titration 600 900 Amount Sodium Chloride 0.9% 1, 600 900 000 ml @ 75 mls/hr IV . [id number] [facility] Rx#:[id number] Oral 960 600 540 Other: # Voids 1 4 - Labs CBC & Chem 7: 10/27/20 06:12 10/28/20 08:14 Labs: Abnormal Lab Results - Last 24 Hours (Table) 10/27/20 10/27/20 10/27/20 Range/Units 06:12 17:57 18:30 Sodium 127 L (137-145) mmol/L Chloride 85 L (98-107) mmol/L Carbon Dioxide (22-30) mmol/L Creatinine 0.52 L (0.66-1.25) mg/dL Glucose 248 H (74-99) mg/dL POC Glucose (mg/dL) 196 H (75-99) mg/dL LDL Cholesterol, Calc 120 H (0-99) mg/dL HDL Cholesterol 67 H (40-60) mg/dL 10/27/20 10/28/20 10/28/20 Range/Units 20:05 06:09 08:14 Sodium 130 L (137-145) mmol/L Chloride 86 L (98-107) mmol/L Carbon Dioxide 39 H (22-30) mmol/L Creatinine 0.51 L (0.66-1.25) mg/dL Glucose 154 H (74-99) mg/dL POC Glucose (mg/dL) 207 H 165 H (75-99) mg/dL LDL Cholesterol, Calc (0-99) mg/dL HDL Cholesterol (40-60) mg/dL
[2020-10-28] MEDS: lisinopriL 20 MG TAB PO SCH (11:48)
[2020-10-28 11:57] LABS: Glucose,Whole Blood 161 mg/dL (75-99)
--- NOTE | 2020-10-28 13:17 | P.PN ---
Subjective Progress Note Date: 10/28/20 Principal diagnosis: Dyspnea, cough, COPD, hypoxemia 55-year-old male with a history of severe COPD. The patient was last seen by my partner in July 2020. In his note, my partner points out that the patient's FEV1 is 19% of predicted, and his diffusing capacity corrected for alveolar volume is only 40%. Hence, the patient has stage IV/end-stage emphysema. The patient was brought to the emergency room by EMS. He arrived on 10/27/2020, at 05 51. His complaint was that of increasing shortness of breath. He been short of breath for about 4 days. He was using his updraft treatments at home but they were not working. He was quite tight in the chest, and was wheezing. He was also coughing and producing some phlegm. He denied any fever or chills. He denied any chest pain or chest discomfort. The patient was admitted with a diagnosis of COPD exacerbation. He was initially seen at [facility], and transferred down for further treatment. His family doc tors here in [facility]. Currently, the patient is receiving oxygen at 5 L. He appears to be improved somewhat. He's feeling better and is less short of breath. 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 He did not qualify for replacement therapy. In addition to COPD, the patient has a history of hypertension. On 10/28/2020 patient seen in follow-up. He is awake and she states he is breathing easier, still bronchospastic, still dyspneic, but breathing easier. Today he is on 5 L of oxygen pulse ox is 93-98%, afebrile, lung sounds reveal diminished breath sounds bilaterally, with scattered end expiratory wheezes. He is on nebulized bronchodilators, doxycycline, IV steroids Objective - Vital Signs Vital signs: Vital Signs Temp 97.4 F L 10/28/20 08:00 Pulse 97 10/28/20 11:52 Resp 18 10/28/20 11:52 BP 116/73 10/28/20 11:52 Pulse Ox 98 10/28/20 11:52 Intake & Output 10/27/20 10/28/20 10/28/20 18:59 06:59 18:59 Intake Total 1560 1500 540 Balance 1560 1500 540 Weight 77.111 kg 68.2 kg Intake: Intake, IV Titration 600 900 Amount Sodium Chloride 0.9% 1, 600 900 000 ml @ 75 mls/hr IV . [id number] [facility] Rx#:[id number] Oral 960 600 540 Other: # Voids 1 4 - Exam GENERAL EXAM: Alert, very pleasant, 55-year-old white male, on 5 L of oxygen, with pulse ox 93-98%, sitting up in bed, comfortable in no apparent distress. HEAD: Normocephalic/atraumatic. EYES: Normal reaction of pupils, equal size. Conjunctiva pink, sclera white. NOSE: Clear with pink turbinates. THROAT: No erythema or exudates. NECK: No masses, no JVD, no thyroid enlargement, no adenopathy. CHEST: No chest wall deformity. Symmetrical expansion. LUNGS: Diminished air entry with end expiratory wheezes CVS: Regular rate and rhythm, normal S1 and S2, no gallops, no murmurs, no rubs ABDOMEN: Soft, nontender. No hepatosplenomegaly, normal bowel sounds, no guarding or rigidity. EXTREMITIES: No clubbing, no edema, no cyanosis, 2+ pulses and upper and lower extremities. MUSCULOSKELETAL: Muscle strength and tone normal. SPINE: No scoliosis or deformity SKIN: No rashes CENTRAL NERVOUS SYSTEM: Alert and oriented -3. No focal deficits, tone is normal in all 4 extremities. PSYCHIATRIC: Alert and oriented -3. Appropriate affect. Intact judgment and insight. - Labs CBC & Chem 7: 10/27/20 06:12 10/28/20 08:14 Labs: Abnormal Lab Results - Last 24 Hours (Table) 10/27/20 10/27/20 10/27/20 Range/Units 17:57 18:30 20:05 Sodium 127 L (137-145) mmol/L Chloride 85 L (98-107) mmol/L Carbon Dioxide (22-30) mmol/L Creatinine 0.52 L (0.66-1.25) mg/dL Glucose 248 H (74-99) mg/dL POC Glucose (mg/dL) 196 H 207 H (75-99) mg/dL 10/28/20 10/28/20 10/28/20 Range/Units 06:09 08:14 11:56 Sodium 130 L (137-145) mmol/L Chloride 86 L (98-107) mmol/L Carbon Dioxide 39 H (22-30) mmol/L Creatinine 0.51 L (0.66-1.25) mg/dL Glucose 154 H (74-99) mg/dL POC Glucose (mg/dL) 165 H 161 H (75-99) mg/dL Assessment and Plan Plan: Assessment: Acute hypoxemic respiratory failure, secondary to COPD exacerbation. Severe/stage IV/end-stage COPD, with an FEV1 that is 19% of predicted, and diffusing capacity corrected for alveolar volume which is 40%. Prior history of heavy tobacco use. History of essential hypertension. Plan: Continue current medical treatment, continue steroids antibiotics, nebulized bronchodilators. Weaning FiO2, patient is doing better, however still dyspneic bronchospastic. Not ready for discharge, we'll continue with same medical treatment, follow-up CBC CMP in the morning, follow-up chest x-ray in the morning I performed a history & physical examination of the patient and discussed their management with my nurse practitioner, Elida Cardoso. I reviewed the nurse practitioner's note and agree with the documented findings and plan of care. Lung sounds are positive for diffuse wheezes throughout the lung miles. The findings and the impression was discussed with the patient. I attest to the documentation by the nurse practitioner. Time with Patient: Less than 30
[2020-10-28 17:02] LABS: Glucose,Whole Blood 169 mg/dL (75-99)
--- NOTE | 2020-10-28 18:50 | P.PN ---
Progress Note - Text Progress Note Date: 10/28/20 Chief Complaint: Short of breath History of presenting complaint: This is a pleasant 55-year-old patient of Dr. Irizarry. Patient has a history of alpha-1 antitrypsin deficiency and is a previous smoker. Patient presents with 10 days of increasing shortness of breath and wheezing. Producing significant amount of sputum, green in color. Denies any fever and chills. Significant short of breath. Appetite has been okay. Admitted for the same. Pulmonary was consulted. Short of breath at rest Admitted with severe COPD exacerbation and acute hypoxic respiratory failure. Started on nebulized bronchodilators, IV Solu-Medrol, oxygen and doxycycline. Today-sitting up in bed. She had improvement in the breathing and wheezing. Oral intake fair. Wheezing. Cough with sputum. Review of systems: Was done for constitutional, cardiovascular, GI, pulmonary. relevant finding as above Active Medications Albuterol/Ipratropium (Ipratropium-Albuterol 3 Ml Neb) 3 ml INHALATION Q3H [facility] Last Admin: 10/28/20 16:39 Dose: 3 ml Documented by: Albuterol/Ipratropium (Ipratropium-Albuterol 3 Ml Neb) 3 ml INHALATION RT-Q4H PRN PRN Reason: Shortness Of Breath Or Wheezing Ascorbic Acid (Ascorbic Acid 500 Mg Tab) 500 mg PO DAILY [facility] Last Admin: 10/28/20 08:11 Dose: 500 mg Documented by: Budesonide (Budesonide 1 Mg/2 Ml Nebu) 1 mg INHALATION RT-BID [facility] Last Admin: 10/28/20 07:24 Dose: 1 mg Documented by: Doxycycline Monohydrate (Doxycycline 100 Mg Cap) 100 mg PO BID [facility] Last Admin: 10/28/20 08:11 Dose: 100 mg Documented by: Enoxaparin Sodium (Enoxaparin 40 Mg/0.4 Ml Syringe) 40 mg SQ DAILY [facility] Last Admin: 10/28/20 08:11 Dose: 40 mg Documented by: Formoterol Fumarate (Formoterol Fumarate 20 Mcg/2 Ml Nebu) 20 mcg INHALATION RT-BID [facility] Last Admin: 10/28/20 07:24 Dose: 20 mcg Documented by: Guaifenesin (Guaifenesin 600 Mg Tablet.Er) 600 mg PO QID [facility] Last Admin: 10/28/20 17:19 Dose: 600 mg Documented by: Sodium Chloride (Saline 0.9%) 1,000 mls @ 75 mls/hr IV .[id number] [facility] Last Admin: 10/28/20 08:11 Dose: 75 mls/hr Documented by: Insulin Aspart (Insulin Aspart (Novolog) 100 Unit/Ml Vial) 0 unit SQ ACHS [facility]; Protocol Last Admin: 10/28/20 17:19 Dose: 2 unit Documented by: Lisinopril (Lisinopril 20 Mg Tab) 20 mg PO DAILY@1400 [facility] Last Admin: 10/28/20 11:48 Dose: 20 mg Documented by: Melatonin (Melatonin 5 Mg Tablet) 5 mg PO [facility] Last Admin: 10/27/20 21:06 Dose: 5 mg Documented by: Methylprednisolone Sodium Succinate (Methylprednisolone Sod Succi 125 Mg/2 Ml Vial) 60 mg IV Q6HR [facility] Last Admin: 10/28/20 17:19 Dose: 60 mg Documented by: Mirtazapine (Mirtazapine 15 Mg Tab) 7.5 mg PO [facility] Last Admin: 10/27/20 21:06 Dose: 7.5 mg Documented by: Multivitamins (Multivitamins, Thera 1 Each Tab) 1 each PO DAILY [facility] Last Admin: 10/28/20 08:11 Dose: 1 each Documented by: Past medical history to include: COPD, hypertension, alpha-1 antitrypsin deficiency, pancreatitis Social history: Patient started smoking 89 and stopped in 2019. He drink a bit heavy alcohol to the age of 27. . 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 Conjunctiva normal. HEENT: External appearance of nose and ears normal, oral cavity grossly normal. NECK: JVD not raised; masses not palpable. HEART: First and second heart sounds are normal; no edema. LUNGS:[ Respiratory rate increased, decreased breath sounds prolonged expiration and wheezing, ABDOMEN: Soft, nontender, liver spleen not palpable, no masses palpable. PSYCH: [Alert and oriented x3; mood and affect slightly anxious. INVESTIGATIONS, reviewed in the clinical context: October 28: Sodium 1:30 potassium 5.1 creatinine 0.51 White count 7.2 hemoglobin 14.7 potassium 5.5 bun 21 creatinine 0.47 EKG tracing personally reviewed by me-normal sinus rhythm, right axis deviation 2-D echocardiogram-EF 60-65% Assessment and plan: -Acute severe end-stage COPD exacerbation in an ex-smoker. on bronchodilators, IV steroids and inhaled steroids. -Slow to respond -Acute hypoxic respiratory failure secondary to COPD exacerbation. On supplemental oxygen 6 L-slow to respond -Alpha-1 antitrypsin deficiency -Essential hypertension, continue with lisinopril -Chronic insomnia continue with melatonin -DVT prophylaxis started on Lovenox -Hyponatremia likely from excessive water intake -Metabolic alkalosis from steroids Care was discussed with the patient.
[2020-10-28 21:04] LABS: Glucose,Whole Blood 166 mg/dL (75-99)
[2020-10-28] MEDS: MIRTAZAPINE 15 MG TAB PO SCH (21:09)
[2020-10-28] MEDS: MELATONIN 5 MG TABLET PO SCH (21:09)
[2020-10-29] MEDS: IPRATROPIUM-ALBUTEROL 3 ML NEB INHALATION SCH ×6 (02:59→19:48)
[2020-10-29 06:29] LABS: Glucose,Whole Blood 142 mg/dL (75-99)
[2020-10-29] MEDS: methylPREDNISolone SOD SUCCI 125 MG/2 ML VIAL IV SCH ×4 (06:40→23:05)
[2020-10-29] MEDS: INSULIN ASPART (NovoLOG) 100 UNIT/ML VIAL SQ SCH ×4 (06:41→20:20)
[2020-10-29 07:15] LABS: African American GFR (CKD) >90 (>60 ml/min/1.73 sqM); Anion Gap 3 mmol/L; Blood Urea Nitrogen 17 mg/dL (9-20); Calcium 8.9 mg/dL (8.4-10.2); Carbon Dioxide 39 mmol/L (22-30); Chloride 87 mmol/L (98-107); Glucose 145 mg/dL (74-99); Non-African American GFR(CKD) >90 (>60 ml/min/1.73 sqM); Potassium 4.9 mmol/L (3.5-5.1); Sodium 129 mmol/L (137-145)
[2020-10-29] MEDS: BUDESONIDE 1 MG/2 ML NEBU INHALATION SCH ×2 (07:49→19:47)
[2020-10-29] MEDS: FORMOTEROL FUMARATE 20 MCG/2 ML NEBU INHALATION SCH ×2 (07:49→19:47)
[2020-10-29] MEDS: DOXYCYCLINE 100 MG CAP PO SCH ×2 (08:23→20:20)
[2020-10-29] MEDS: SODIUM CHLORIDE 0.9% 1,000 ML IV SCH ×2 (08:23→23:06)
[2020-10-29] MEDS: ENOXAPARIN 40 MG/0.4 ML SYRINGE SQ SCH (08:23)
[2020-10-29] MEDS: MULTIVITAMINS, THERA 1 EACH TAB PO SCH (08:23)
[2020-10-29] MEDS: guaiFENesin 600 MG TABLET.ER PO SCH ×4 (08:23→20:21)
[2020-10-29] MEDS: ASCORBIC ACID 500 MG TAB PO SCH (08:23)
--- NOTE | 2020-10-29 11:18 | P.PN ---
Subjective History of presenting complaint: This is a pleasant 55-year-old patient of Dr. Irizarry. Patient has a history of alpha-1 antitrypsin deficiency and is a previous smoker. Patient presents with 10 days of increasing shortness of breath and wheezing. Producing significant amount of sputum, green in color. Denies any fever and chills. Significant short of breath. Appetite has been okay. Admitted for the same. Pulmonary was consulted. Short of breath at rest Admitted with severe COPD exacerbation and acute hypoxic respiratory failure. Started on nebulized bronchodilators, IV Solu-Medrol, oxygen and doxycycline. Today-sitting up in bed. She had improvement in the breathing and wheezing. Oral intake fair. Wheezing. Cough with sputum. Subjective: 10/29/2020 Patient was lying on his side in his bed, he feels better but is still short of breath with wheezing clear on auscultation. History of cough with some dark yellow phlegm. He has decreased air entry on both sides of the lung. He is also on 5 L oxygen via nasal cannula. With oxygen saturation is 95%, slightly tachycardic at 104. Labs showing mild hyponatremia at 129, creatinine 0.5, glucose is controlled. He has mild leukocytosis of 17.2 on admission. No sputum culture. Patient is on normal saline at 75 with a per hour, so Medrol 60 mg and doxycycline for antibiotics. Ejection fraction is 60-65% Review of systems CONSTITUTIONAL: No fever, no malaise, no fatigue. HEENT: No recent visual problems or hearing problems. Denied any sore throat. CARDIOVASCULAR: No orthopnea, PND, no palpitations, no syncope. PULMONARY: No chest wall tenderness, no hemoptysis. GASTROINTESTINAL: No diarrhea, no nausea, no vomiting, no abdominal pain. Normoactive bowel sounds. NEUROLOGICAL: No headaches, no weakness, no numbness. HEMATOLOGICAL: Denies any bleeding or petechiae. Active Medications Generic Name Dose Route Start Last Admin Trade Name Freq PRN Reason Stop Dose Admin Albuterol/Ipratropium 3 ml 10/27/20 06:45 Ipratropium-Albuterol 3 Ml Neb INHALATION RT-Q4H PRN Shortness Of Breath Or Wheezing Albuterol/Ipratropium 3 ml 10/29/20 08:00 10/29/20 07:49 Ipratropium-Albuterol 3 Ml Neb INHALATION 3 ml RT-QID [facility] Administration Ascorbic Acid 500 mg 10/27/20 11:15 10/29/20 08:23 Ascorbic Acid 500 Mg Tab PO 500 mg DAILY [facility] Administration Budesonide 1 mg 10/27/20 20:00 10/29/20 07:49 Budesonide 1 Mg/2 Ml Nebu INHALATION 1 mg RT-BID [facility] Administration Doxycycline Monohydrate 100 mg 10/27/20 21:00 10/29/20 08:23 Doxycycline 100 Mg Cap PO 100 mg BID [facility] Administration Enoxaparin Sodium 40 mg 10/27/20 12:30 10/29/20 08:23 Enoxaparin 40 Mg/0.4 Ml Syringe SQ 40 mg DAILY [facility] Administration Formoterol Fumarate 20 mcg 10/27/20 20:00 10/29/20 07:49 Formoterol Fumarate 20 Mcg/2 Ml Nebu INHALATION 20 mcg RT-BID [facility] Administration Guaifenesin 600 mg 10/27/20 22:00 10/29/20 08:23 Guaifenesin 600 Mg Tablet.Er PO 600 mg QID [facility] Administration Sodium Chloride 1,000 mls @ 75 mls/hr 10/27/20 07:00 10/29/20 08:23 Saline 0.9% IV 75 mls/hr .[id number] [facility] Administration Insulin Aspart 0 unit 10/27/20 21:00 10/29/20 06:41 Insulin Aspart (Novolog) 100 Unit/Ml Vial SQ 2 unit ACHS [facility] Administration Protocol Lisinopril 20 mg 10/27/20 14:00 10/28/20 11:48 Lisinopril 20 Mg Tab PO 20 mg DAILY@1400 [facility] Administration Melatonin 5 mg 10/27/20 21:00 10/28/20 21:09 Melatonin 5 Mg Tablet PO 5 mg HS [facility] Administration Methylprednisolone Sodium Succinate 60 mg 10/27/20 12:00 10/29/20 06:40 Methylprednisolone Sod Succi 125 Mg/2 Ml Vial IV 60 mg Q6HR [facility] Administration Mirtazapine 7.5 mg 10/27/20 21:00 10/28/20 21:09 Mirtazapine 15 Mg Tab PO 7.5 mg HS [facility] Administration Multivitamins 1 each 10/27/20 11:15 10/29/20 08:23 Multivitamins, Thera 1 Each Tab PO 1 each DAILY [facility] Administration Objective - Vital Signs Vital signs: Vital Signs Temp 97.6 F 10/29/20 08:00 Pulse 104 H 10/29/20 08:04 Resp 18 10/29/20 08:00 BP 133/67 10/29/20 08:00 Pulse Ox 95 10/29/20 08:00 Intake & Output 10/28/20 10/29/20 10/29/20 18:59 06:59 18:59 Intake Total 1012 1175 240 Balance 1012 1175 240 Weight 69.4 kg Intake: Intake, IV Titration 575 Amount Sodium Chloride 0.9% 1, 575 000 ml @ 75 mls/hr IV . [id number] [facility] Rx#:[id number] Oral 1012 600 240 Other: # Voids 1 3 - Exam GENERAL: The patient is alert and oriented x3, not in any acute distress. Well developed, well nourished. HEENT: Pupils are round and equally reacting to light. EOMI. No scleral icterus. No conjunctival pallor. Normocephalic, atraumatic. No pharyngeal erythema. No thyromegaly. CARDIOVASCULAR: S1 and S2 present. No murmurs, rubs, or gallops. -PULMONARY: Chest is clear to auscultation, expiratory wheezing and decreased air entry on both sides ABDOMEN: Soft, nontender, nondistended, normoactive bowel sounds. No palpable organomegaly. MUSCULOSKELETAL: No joint swelling or deformity. EXTREMITIES: No cyanosis, clubbing, or pedal edema. NEUROLOGICAL: Gross neurological examination did not reveal any focal deficits. SKIN: No rashes. no petechiae. - Labs CBC & Chem 7: 10/27/20 06:12 10/29/20 06:15 Labs: Abnormal Lab Results - Last 24 Hours (Table) 10/28/20 10/28/20 10/28/20 Range/Units 11:56 17:00 20:45 Sodium (137-145) mmol/L Chloride (98-107) mmol/L Carbon Dioxide (22-30) mmol/L Creatinine (0.66-1.25) mg/dL Glucose (74-99) mg/dL POC Glucose (mg/dL) 161 H 169 H 166 H (75-99) mg/dL 10/29/20 10/29/20 Range/Units 06:06 06:15 Sodium 129 L (137-145) mmol/L Chloride 87 L (98-107) mmol/L Carbon Dioxide 39 H (22-30) mmol/L Creatinine 0.56 L (0.66-1.25) mg/dL Glucose 145 H (74-99) mg/dL POC Glucose (mg/dL) 142 H (75-99) mg/dL Assessment and Plan Assessment: -Acute severe end-stage COPD exacerbation in an ex-smoker. on bronchodilators, IV steroids and inhaled steroids. Pulmonary team on the case -Acute hypoxic respiratory failure secondary to COPD exacerbation. On supplemental oxygen -Alpha-1 antitrypsin deficiency -Elevated troponin, evaluated by central service technician, no further workup most likely leaked enzymes -Essential hypertension, continue with lisinopril -Chronic insomnia continue with melatonin -Hyponatremia likely from excessive water intake -Metabolic alkalosis from steroids -DVT prophylaxis started on Lovenox GI prophylaxis: Pepcid Care was discussed with the patient.
[2020-10-29 11:42] LABS: Glucose,Whole Blood 147 mg/dL (75-99)
[2020-10-29] MEDS: lisinopriL 20 MG TAB PO SCH (12:07)
--- NOTE | 2020-10-29 13:47 | P.PN ---
Subjective Progress Note Date: 10/29/20 Principal diagnosis: Shortness of breath. 55-year-old male with a history of severe COPD. The patient was last seen by my partner in July 2020. In his note, my partner points out that the patient's FEV1 is 19% of predicted, and his diffusing capacity corrected for alveolar volume is only 40%. Hence, the patient has stage IV/end-stage emphysema. The patient was brought to the emergency room by EMS. He arrived on 10/27/2020, at 05 51. His complaint was that of increasing shortness of breath. He been short of breath for about 4 days. He was using his updraft treatments at home but they were not working. He was quite tight in the chest, and was wheezing. He was also coughing and producing some phlegm. He denied any fever or chills. He denied any chest pain or chest discomfort. The patient was admitted with a diagnosis of COPD exacerbation. He was initially seen at [facility], and transferred down for further treatment. His family doctors here in [place] [facility]. Currently, the patient is receiving oxygen at 5 L. He appears to be improved somewhat. He's feeling better and is less short of breath. 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 He did not qualify for replacement therapy. In addition to COPD, the patient has a history of hypertension. On 10/28/2020 patient seen in follow-up. He is awake and she states he is breathing easier, still bronchospastic, still dyspneic, but breathing easier. Today he is on 5 L of oxygen pulse ox is 93-98%, afebrile, lung sounds reveal diminished breath sounds bilaterally, with scattered end expiratory wheezes. He is on nebulized bronchodilators, doxycycline, IV steroids Progress note dated 10/29/2020. 55-year-old gentleman with history of stage IV chronic lung disease. He sees my partner in the office. The patient has an FEV1 that's 19% of predicted. Currently, the patient is on oxygen at 5 L. He may have to be discharged home on oxygen. I don't know if he will permanently need oxygen or not. That can be determined at a later date. Currently, he is feeling much improved. He is much less short of breath. He's not coughing or wheezing. Does not chest pain or chest discomfort. The patient does have a history of MZ phenotype alpha-1 antitrypsin disease, but was not a candidate for replacement therapy. In addition to COPD, the patient has a history of hypertension. The patient denies any phlegm production. His breathing is improved. He denies any significant wheezing. I spent a great deal of time tell telling the patient that his lung function was very poor. I wanted him to understand his diagnosis, so that if he should be admitted again, he remembers that he only has 19% lung function. Objective - Vital Signs Vital signs: Vital Signs Temp 97.6 F 10/29/20 08:00 Pulse 93 10/29/20 12:00 Resp 18 10/29/20 12:00 BP 143/71 10/29/20 12:00 Pulse Ox 97 10/29/20 12:00 Intake & Output 10/28/20 10/29/20 10/29/20 18:59 06:59 18:59 Intake Total 1012 1175 465 Balance 1012 1175 465 Weight 69.4 kg Intake: Intake, IV Titration 575 225 Amount Sodium Chloride 0.9% 1, 575 225 000 ml @ 75 mls/hr IV . [id number] [facility] Rx#:[id number] Oral 1012 600 240 Other: # Voids 1 3 - Exam GENERAL EXAM: Alert, very pleasant, 55-year-old white male, on 5 L of oxygen, with pulse ox 93-98%, sitting up in bed, comfortable in no apparent distress. HEAD: Normocephalic/atraumatic. EYES: Normal reaction of pupils, equal size. Conjunctiva pink, sclera white. NOSE: Clear with pink turbinates. THROAT: No erythema or exudates. NECK: No masses, no JVD, no thyroid enlargement, no adenopathy. CHEST: No chest wall deformity. Symmetrical expansion. LUNGS: Lung sounds are severely diminished. I don't hear any crackles or rhonchi. Maybe a few high-pitched expiratory wheezes. Breath sounds are equal bilaterally. CVS: Regular rate and rhythm, normal S1 and S2, no gallops, no murmurs, no rubs. Heart rate 93 bpm. ABDOMEN: Soft, nontender. No hepatosplenomegaly, normal bowel sounds, no guarding or rigidity. EXTREMITIES: No clubbing, no edema, no cyanosis, 2+ pulses and upper and lower extremities. MUSCULOSKELETAL: Muscle strength and tone normal. SPINE: No scoliosis or deformity SKIN: No rashes CENTRAL NERVOUS SYSTEM: Alert and oriented -3. No focal deficits, tone is no rmal in all 4 extremities. PSYCHIATRIC: Alert and oriented -3. Appropriate affect. Intact judgment and insight. - Labs CBC & Chem 7: 10/27/20 06:12 10/29/20 06:15 Labs: Abnormal Lab Results - Last 24 Hours (Table) 10/28/20 10/28/20 10/29/20 Range/Units 17:00 20:45 06:06 Sodium (137-145) mmol/L Chloride (98-107) mmol/L Carbon Dioxide (22-30) mmol/L Creatinine (0.66-1.25) mg/dL Glucose (74-99) mg/dL POC Glucose (mg/dL) 169 H 166 H 142 H (75-99) mg/dL 10/29/20 10/29/20 Range/Units 06:15 11:41 Sodium 129 L (137-145) mmol/L Chloride 87 L (98-107) mmol/L Carbon Dioxide 39 H (22-30) mmol/L Creatinine 0.56 L (0.66-1.25) mg/dL Glucose 145 H (74-99) mg/dL POC Glucose (mg/dL) 147 H (75-99) mg/dL Assessment and Plan Assessment: Acute hypoxemic respiratory failure, secondary to COPD exacerbation. Severe/stage IV/end-stage COPD, with an FEV1 that is 19% of predicted, and d iffusing capacity corrected for alveolar volume which is 40%. Prior history of heavy tobacco use. History of essential hypertension. Plan: Plan dated 10/29/2020. Currently, the patient's doing much better. The patient still remains on O2 though at 5 L/m. He asked me whether or not he'll have to go home on oxygen, and I'm not sure about that. He may have to go home on oxygen for short period of time, or may be even permanently. His FEV1 percent is only 19. He remains on albuterol sulfate and ipratropium bromide, Perforomist, and budesonide, as well as systemic corticosteroids. We will continue to follow and make recommendations were appropriate. Overall prognosis remains very guarded. He'll follow-up with my partner once he is discharged from the hospital. Additional recommendations and suggestions are forthcoming. Time with Patient: Less than 30
[2020-10-29 16:24] LABS: Glucose,Whole Blood 126 mg/dL (75-99)
[2020-10-29 20:14] LABS: Glucose,Whole Blood 174 mg/dL (75-99)
[2020-10-29] MEDS: FAMOTIDINE 20 MG/2 ML VIAL IV SCH (20:20)
[2020-10-29] MEDS: MELATONIN 5 MG TABLET PO SCH (20:20)
[2020-10-29] MEDS: MIRTAZAPINE 15 MG TAB PO SCH (20:21)
[2020-10-30 05:59] LABS: Glucose,Whole Blood 132 mg/dL (75-99)
[2020-10-30] MEDS: methylPREDNISolone SOD SUCCI 125 MG/2 ML VIAL IV SCH ×4 (06:31→23:04)
[2020-10-30] MEDS: INSULIN ASPART (NovoLOG) 100 UNIT/ML VIAL SQ SCH ×4 (06:32→20:38)
[2020-10-30 07:59] LABS: Basophils % (A) 0 %; Eosinophils % (A) 0 %; HGB 13.5 gm/dL (13.0-17.5); Lymphocytes # (A) 0.8 k/uL (1.0-4.8); Lymphocytes % (A) 6 %; MCH 29.8 pg (25.0-35.0); Mean Platelet Volume 6.4; Monocytes % (A) 7 %; Neutrophils % (A) 87 %; Platelet Count 291 k/uL (150-450); RBC 4.52 m/uL (4.30-5.90); RDW 12.4 % (11.5-15.5); WBC 13.8 k/uL (3.8-10.6)
[2020-10-30 08:35] LABS: African American GFR (CKD) >90 (>60 ml/min/1.73 sqM); Anion Gap 1 mmol/L; Blood Urea Nitrogen 16 mg/dL (9-20); Calcium 8.4 mg/dL (8.4-10.2); Carbon Dioxide 40 mmol/L (22-30); Chloride 87 mmol/L (98-107); Glucose 134 mg/dL (74-99); Non-African American GFR(CKD) >90 (>60 ml/min/1.73 sqM); Potassium 4.6 mmol/L (3.5-5.1); Sodium 128 mmol/L (137-145)
[2020-10-30] MEDS: MULTIVITAMINS, THERA 1 EACH TAB PO SCH (08:56)
[2020-10-30] MEDS: FAMOTIDINE 20 MG/2 ML VIAL IV SCH (08:56)
[2020-10-30] MEDS: ENOXAPARIN 40 MG/0.4 ML SYRINGE SQ SCH (08:56)
[2020-10-30] MEDS: guaiFENesin 600 MG TABLET.ER PO SCH ×4 (08:56→20:37)
[2020-10-30] MEDS: DOXYCYCLINE 100 MG CAP PO SCH ×2 (08:56→20:38)
[2020-10-30] MEDS: ASCORBIC ACID 500 MG TAB PO SCH (08:56)
[2020-10-30] MEDS: IPRATROPIUM-ALBUTEROL 3 ML NEB INHALATION SCH ×4 (09:27→20:14)
[2020-10-30] MEDS: FORMOTEROL FUMARATE 20 MCG/2 ML NEBU INHALATION SCH ×2 (09:27→20:14)
[2020-10-30] MEDS: BUDESONIDE 1 MG/2 ML NEBU INHALATION SCH ×2 (09:27→20:14)
--- NOTE | 2020-10-30 10:55 | P.PN ---
Subjective History of presenting complaint: This is a pleasant 55-year-old patient of Dr. Irizarry. Patient has a history of alpha-1 antitrypsin deficiency and is a previous smoker. Patient presents with 10 days of increasing shortness of breath and wheezing. Producing significant amount of sputum, green in color. Denies any fever and chills. Significant short of breath. Appetite has been okay. Admitted for the same. Pulmonary was consulted. Short of breath at rest Admitted with severe COPD exacerbation and acute hypoxic respiratory failure. Started on nebulized bronchodilators, IV Solu-Medrol, oxygen and doxycycline. Today-sitting up in bed. She had improvement in the breathing and wheezing. Oral intake fair. Wheezing. Cough with sputum. Subjective: 10/29/2020 Patient was lying on his side in his bed, he feels better but is still short of breath with wheezing clear on auscultation. History of cough with some dark yellow phlegm. He has decreased air entry on both sides of the lung. He is also on 5 L oxygen via nasal cannula. With oxygen saturation is 95%, slightly tachycardic at 104. Labs showing mild hyponatremia at 129, creatinine 0.5, glucose is controlled. He has mild leukocytosis of 17.2 on admission. No sputum culture. Patient is on normal saline at 75 with a per hour, so Medrol 60 mg and doxycycline for antibiotics. Ejection fraction is 60-65% 10/30/2020 Patient breathing keeps improving and he is less dyspneic/tachypneic today, he has minimal cough. He is saturating 95% on 4 L per minute oxygen via nasal can nula, patient was not on home steroids or home oxygen. Leukocytosis is trending down to 13.8 K also he is on steroids. Sodium is 128, creatinine 0.4. echocardiogram showed ejection fraction of 60-65%. He is currently on doxycycline, so Medrol 60 mg a normal sinus 75 mL/h Objective - Vital Signs Vital signs: Vital Signs Temp 98.1 F 10/30/20 08:00 Pulse 85 10/30/20 09:51 Resp 20 10/30/20 08:00 BP 161/90 10/30/20 08:00 Pulse Ox 95 10/30/20 08:00 Intake & Output 10/29/20 10/30/20 10/30/20 18:59 06:59 18:59 Intake Total 1185 125 Output Total 200 Balance 985 125 Weight 70.3 kg Intake: Intake, IV Titration 225 Amount Sodium Chloride 0.9% 1, 225 000 ml @ 75 mls/hr IV . [id number] COUNTS INCLUDE 234 BEDS AT [facility] Rx#:[id number] Oral 960 125 Output: Urine 200 Other: # Voids 1 - Labs CBC & Chem 7: 10/30/20 07:33 10/30/20 07:33 Labs: Abnormal Lab Results - Last 24 Hours (Table) 10/29/20 10/29/20 10/29/20 Range/Units 11:41 16:23 20:13 WBC (3.8-10.6) k/uL Neutrophils # (1.3-7.7) k/uL Lymphocytes # (1.0-4.8) k/uL Sodium (137-145) mmol/L Chloride (98-107) mmol/L Carbon Dioxide (22-30) mmol/L Creatinine (0.66-1.25) mg/dL Glucose (74-99) mg/dL POC Glucose (mg/dL) 147 H 126 H 174 H (75-99) mg/dL 10/30/20 10/30/20 10/30/20 Range/Units 05:57 07:33 07:33 WBC 13.8 H (3.8-10.6) k/uL Neutrophils # 12.0 H (1.3-7.7) k/uL Lymphocytes # 0.8 L (1.0-4.8) k/uL Sodium 128 L (137-145) mmol/L Chloride 87 L (98-107) mmol/L Carbon Dioxide 40 H (22-30) mmol/L Creatinine 0.46 L (0.66-1.25) mg/dL Glucose 134 H (74-99) mg/dL POC Glucose (mg/dL) 132 H (75-99) mg/dL Microbiology - Last 24 Hours (Table) 10/29/20 20:13 Gram Stain - Preliminary Sputum Sputum Culture - Preliminary
[2020-10-30 11:52] LABS: Glucose,Whole Blood 172 mg/dL (75-99)
--- NOTE | 2020-10-30 11:58 | P.PN ---
Subjective Progress Note Date: 10/30/20 Principal diagnosis: Shortness of breath. 55-year-old male with a history of severe COPD. The patient was last seen by my partner in July 2020. In his note, my partner points out that the patient's FEV1 is 19% of predicted, and his diffusing capacity corrected for alveolar volume is only 40%. Hence, the patient has stage IV/end-stage emphysema. The patient was brought to the emergency room by EMS. He arrived on 10/27/2020, at 05 51. His complaint was that of increasing shortness of breath. He been short of breath for about 4 days. He was using his updraft treatments at home but they were not working. He was quite tight in the chest, and was wheezing. He was also coughing and producing some phlegm. He denied any fever or chills. He denied any chest pain or chest discomfort. The patient was admitted with a diagnosis of COPD exacerbation. He was initially seen at [facility], and transferred down for further treatment. His family doctors here in [facility]. Currently, the patient is receiving oxygen at 5 L. He appears to be improved somewhat. He's feeling better and is less short of breath. 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 He did not qualify for replacement therapy. In addition to COPD, the patient has a history of hypertension. On 10/28/2020 patient seen in follow-up. He is awake and she states he is breathing easier, still bronchospastic, still dyspneic, but breathing easier. Today he is on 5 L of oxygen pulse ox is 93-98%, afebrile, lung sounds reveal diminished breath sounds bilaterally, with scattered end expiratory wheezes. He is on nebulized bronchodilators, doxycycline, IV steroids Progress note dated 10/29/2020. 55-year-old gentleman with history of stage IV chronic lung disease. He sees my partner in the office. The patient has an FEV1 that's 19% of predicted. Currently, the patient is on oxygen at 5 L. He may have to be discharged home on oxygen. I don't know if he will permanently need oxygen or not. That can be determined at a later date. Currently, he is feeling much improved. He is much less short of breath. He's not coughing or wheezing. Does not chest pain or chest discomfort. The patient does have a history of MZ phenotype alpha-1 antitrypsin disease, but was not a candidate for replacement therapy. In addition to COPD, the patient has a history of hypertension. The patient denies any phlegm production. His breathing is improved. He denies any significant wheezing. I spent a great deal of time tell telling the patient that his lung function was very poor. I wanted him to understand his diagnosis, so that if he should be admitted again, he remembers that he only has 19% lung function. Progress note dated 10/30/2020. 55-year-old male, with a history of severe, stage IV COPD. He sees one of my partners in the office, and has an FEV1 that is 19% of predicted. Currently, he is on O2 at 5 L, but with his saturations, at 97%, I reduce the FiO2 down to 4 L. He may or may not have to go home on oxygen therapy. He is feeling a bit b daisy. He still short of breath with exertion. He is currently receiving all appropriate medications including DuoNeb, Pulmicort, formoterol, and systemic corticosteroids. His white count is 13.8, hemoglobin 13.5, hematocrit 42, and platelet count 291,000. Sodium 128, potassium 4.6, chloride 87, CO2 40, anion gap 1, BUN 16, and creatinine 0.46. He is clearly a CO2 retainer. We should accept saturations between 88-92%. Microbiology is negative or pending. No recent chest x-rays to review at this time. Objective - Vital Signs Vital signs: Vital Signs Temp 97.6 F 10/30/20 11:26 Pulse 83 10/30/20 11:26 Resp 20 10/30/20 11:26 BP 141/83 10/30/20 11:26 Pulse Ox 97 10/30/20 11:26 Intake & Output 10/29/20 10/30/20 10/30/20 18:59 06:59 18:59 Intake Total 1185 125 Output Total 200 Balance 985 125 Weight 70.3 kg Intake: Intake, IV Titration 225 Amount Sodium Chloride 0.9% 1, 225 000 ml @ 75 mls/hr IV . [id number] [facility] Rx#:[id number] Oral 960 125 Output: Urine 200 Other: # Voids 1 - Exam GENERAL EXAM: Alert, very pleasant, 55-year-old white male, on 4 L of oxygen, with pulse ox 93-98%, sitting up in bed, comfortable in no apparent distress. HEAD: Normocephalic/atraumatic. EYES: Normal reaction of pupils, equal size. Conjunctiva pink, sclera white. NOSE: Clear with pink turbinates. THROAT: No erythema or exudates. NECK: No masses, no JVD, no thyroid enlargement, no adenopathy. CHEST: No chest wall deformity. Symmetrical expansion. LUNGS: Lung sounds are severely diminished. I don't hear any crackles or rhonchi. A few high-pitched expiratory wheezes. Breath sounds are equal bilaterally. Breath sounds are certainly improved compared to the prior examinations. CVS: Regular rate and rhythm, normal S1 and S2, no gallops, no murmurs, no rubs. Heart rate 83 bpm. ABDOMEN: Soft, nontender. No hepatosplenomegaly, normal bowel sounds, no guarding or rigidity. EXTREMITIES: No clubbing, no edema, no cyanosis, 2+ pulses and upper and lower extremities. MUSCULOSKELETAL: Muscle strength and tone normal. SPINE: No scoliosis or deformity SKIN: No rashes CENTRAL NERVOUS SYSTEM: Alert and oriented -3. No focal deficits, tone is normal in all 4 extremities. PSYCHIATRIC: Alert and oriented -3. Appropriate affect. Intact judgment and insight. - Labs CBC & Chem 7: 10/30/20 07:33 10/30/20 07:33 Labs: Abnormal Lab Results - Last 24 Hours (Table) 10/29/20 10/29/20 10/30/20 Range/Units 16:23 20:13 05:57 WBC (3.8-10.6) k/uL Neutrophils # (1.3-7.7) k/uL Lymphocytes # (1.0-4.8) k/uL Sodium (137-145) mmol/L Chloride (98-107) mmol/L Carbon Dioxide (22-30) mmol/L Creatinine (0.66-1.25) mg/dL Glucose (74-99) mg/dL POC Glucose (mg/dL) 126 H 174 H 132 H (75-99) mg/dL 10/30/20 10/30/20 Range/Units 07:33 07:33 WBC 13.8 H (3.8-10.6) k/uL Neutrophils # 12.0 H (1.3-7.7) k/uL Lymphocytes # 0.8 L (1.0-4.8) k/uL Sodium 128 L (137-145) mmol/L Chloride 87 L (98-107) mmol/L Carbon Dioxide 40 H (22-30) mmol/L Creatinine 0.46 L (0.66-1.25) mg/dL Glucose 134 H (74-99) mg/dL POC Glucose (mg/dL) (75-99) mg/dL Microbiology - Last 24 Hours (Table) 10/29/20 20:13 Gram Stain - Preliminary Sputum Sputum Culture - Preliminary Assessment and Plan Assessment: Acute hypoxemic respiratory failure, secondary to COPD exacerbation. Severe/stage IV/end-stage COPD, with an FEV1 that is 19% of predicted, and diffusing capacity corrected for alveolar volume which is 40%. Prior history of heavy tobacco use. History of essential hypertension. History of MZ phenotype alpha-1 antitrypsin disease, who does not qualify for replacement therapy. Plan: Plan dated 10/30/2020. The patient is doing much better. I suspect she'll be discharged in next day or 2. He may have to go home on oxygen therapy. He is a CO2 retainer. His baseline bicarbonate concentration is 40, making his likely PaCO2, 68 mmHg,+/- 2 mm Hg. He remains on all appropriate medications. He will need follow-up in our office. No additional recommendations are made. His overall prognosis is guarded. He remains on Pulmicort 1 mg, doxycycline 100 mg, formoterol, 20 g, albuterol sulfate and ipratropium bromide updrafts, and Solu-Medrol, 60 mg every 6 hours. Time with Patient: Less than 30
[2020-10-30] MEDS: lisinopriL 20 MG TAB PO SCH (16:26)
[2020-10-30] MEDS: SODIUM CHLORIDE 0.9% 1,000 ML IV SCH (16:27)
[2020-10-30 16:47] LABS: Glucose,Whole Blood 172 mg/dL (75-99)
[2020-10-30 20:13] LABS: Glucose,Whole Blood 121 mg/dL (75-99)
[2020-10-30] MEDS: FAMOTIDINE 20 MG TAB PO SCH (20:37)
[2020-10-30] MEDS: MELATONIN 5 MG TABLET PO SCH (20:38)
[2020-10-30] MEDS: MIRTAZAPINE 15 MG TAB PO SCH (20:38)
[2020-10-31 06:13] LABS: Glucose,Whole Blood 115 mg/dL (75-99)
[2020-10-31] MEDS: methylPREDNISolone SOD SUCCI 125 MG/2 ML VIAL IV SCH ×4 (06:20→23:54)
[2020-10-31] MEDS: INSULIN ASPART (NovoLOG) 100 UNIT/ML VIAL SQ SCH ×4 (06:32→21:03)
[2020-10-31] MEDS: ENOXAPARIN 40 MG/0.4 ML SYRINGE SQ SCH (08:33)
[2020-10-31] MEDS: FAMOTIDINE 20 MG TAB PO SCH ×2 (08:33→21:03)
[2020-10-31] MEDS: guaiFENesin 600 MG TABLET.ER PO SCH ×4 (08:33→21:03)
[2020-10-31] MEDS: DOXYCYCLINE 100 MG CAP PO SCH ×2 (08:33→21:03)
[2020-10-31] MEDS: MULTIVITAMINS, THERA 1 EACH TAB PO SCH (08:33)
[2020-10-31] MEDS: ASCORBIC ACID 500 MG TAB PO SCH (08:33)
[2020-10-31 08:46] LABS: Basophils % (A) 0 %; Eosinophils # (A) 0.1 k/uL (0-0.7); Eosinophils % (A) 1 %; HCT 47.7 % (39.0-53.0); HGB 15.4 gm/dL (13.0-17.5); Lymphocytes # (A) 0.7 k/uL (1.0-4.8); Lymphocytes % (A) 5 %; MCH 30.2 pg (25.0-35.0); MCHC 32.3 g/dL (31.0-37.0); MCV 93.5 fL (80.0-100.0); Mean Platelet Volume 6.5; Monocytes # (A) 0.6 k/uL (0-1.0); Monocytes % (A) 4 %; Neutrophils # (A) 13.2 k/uL (1.3-7.7); Neutrophils % (A) 90 %; Platelet Count 300 k/uL (150-450); RBC 5.11 m/uL (4.30-5.90); RDW 12.3 % (11.5-15.5); WBC 14.7 k/uL (3.8-10.6)
[2020-10-31 09:15] LABS: African American GFR (CKD) >90 (>60 ml/min/1.73 sqM); Anion Gap 9 mmol/L; Blood Urea Nitrogen 20 mg/dL (9-20); Calcium 8.7 mg/dL (8.4-10.2); Carbon Dioxide 32 mmol/L (22-30); Chloride 85 mmol/L (98-107); Glucose 203 mg/dL (74-99); Non-African American GFR(CKD) >90 (>60 ml/min/1.73 sqM); Potassium 4.8 mmol/L (3.5-5.1); Sodium 126 mmol/L (137-145)
[2020-10-31] MEDS: IPRATROPIUM-ALBUTEROL 3 ML NEB INHALATION SCH ×4 (09:17→20:18)
[2020-10-31] MEDS: BUDESONIDE 1 MG/2 ML NEBU INHALATION SCH ×2 (09:17→20:18)
[2020-10-31] MEDS: FORMOTEROL FUMARATE 20 MCG/2 ML NEBU INHALATION SCH ×2 (09:17→20:19)
[2020-10-31 11:34] LABS: Glucose,Whole Blood 134 mg/dL (75-99)
--- NOTE | 2020-10-31 11:59 | P.PN ---
Subjective History of presenting complaint: This is a pleasant 55-year-old patient of Dr. Irizarry. Patient has a history of alpha-1 antitrypsin deficiency and is a previous smoker. Patient presents with 10 days of increasing shortness of breath and wheezing. Producing significant amount of sputum, green in color. Denies any fever and chills. Significant short of breath. Appetite has been okay. Admitted for the same. Pulmonary was consulted. Short of breath at rest Admitted with severe COPD exacerbation and acute hypoxic respiratory failure. Started on nebulized bronchodilators, IV Solu-Medrol, oxygen and doxycycline. Today-sitting up in bed. She had improvement in the breathing and wheezing. Oral intake fair. Wheezing. Cough with sputum. Subjective: 10/29/2020 Patient was lying on his side in his bed, he feels better but is still short of breath with wheezing clear on auscultation. History of cough with some dark yellow phlegm. He has decreased air entry on both sides of the lung. He is also on 5 L oxygen via nasal cannula. With oxygen saturation is 95%, slightly tachycardic at 104. Labs showing mild hyponatremia at 129, creatinine 0.5, glucose is controlled. He has mild leukocytosis of 17.2 on admission. No sputum culture. Patient is on normal saline at 75 with a per hour, so Medrol 60 mg and doxycycline for antibiotics. Ejection fraction is 60-65% 10/30/2020 Patient breathing keeps improving and he is less dyspneic/tachypneic today, he has minimal cough. He is saturating 95% on 4 L per minute oxygen via nasal can nula, patient was not on home steroids or home oxygen. Leukocytosis is trending down to 13.8 K also he is on steroids. Sodium is 128, creatinine 0.4. echocardiogram showed ejection fraction of 60-65%. He is currently on doxycycline, so Medrol 60 mg a normal sinus 75 mL/h 10/31/2020 Patient breathing is improving and he has better air entry will go there is still some prolongation in the expiration. His oxygen requirement is lowered to 3 L oxygen per minutes, he is not on home oxygen. However his oxygen saturation is 98% at rest. And he has no other new symptoms. He has mild leukocytosis of 14.7 K on steroids. Sodium is 126. Sodium was low since admission 129. However start getting worse after stopping IV fluids. Sugar is controlled. we'll do some workup and asked boom tender to see patient. Patient was advised about fluid restriction It looks like pulmonary team are clearing him to go home today however most likely he'll need home oxygen which cannot provided today as it is Sunday. He is currently on some Medrol 60 mg and doxycycline. No IV fluids. Objective - Vital Signs Vital signs: Vital Signs Temp 97.9 F 10/31/20 07:45 Pulse 88 10/31/20 11:42 Resp 18 10/31/20 11:42 BP 164/80 10/31/20 07:45 Pulse Ox 98 10/31/20 09:19 Intake & Output 10/30/20 10/31/20 10/31/20 18:59 06:59 18:59 Intake Total 1315 300 Balance 1315 300 Weight 71.4 kg Intake: Intake, IV Titration 600 Amount Sodium Chloride 0.9% 1, 600 000 ml @ 75 mls/hr IV . [id number] [facility] Rx#:[id number] Oral 715 300 Other: # Voids 1 - Exam GENERAL: The patient is alert and oriented x3, not in any acute distress. Well developed, well nourished. HEENT: Pupils are round and equally reacting to light. EOMI. No scleral icterus. No conjunctival pallor. Normocephalic, atraumatic. No pharyngeal erythema. No thyromegaly. CARDIOVASCULAR: S1 and S2 present. No murmurs, rubs, or gallops. -PULMONARY: Chest is clear to auscultation, expiratory wheezing and decreased air entry on both sides ABDOMEN: Soft, nontender, nondistended, normoactive bowel sounds. No palpable organomegaly. MUSCULOSKELETAL: No joint swelling or deformity. EXTREMITIES: No cyanosis, clubbing, or pedal edema. NEUROLOGICAL: Gross neurological examination did not reveal any focal deficits. SKIN: No rashes. no petechiae. - Labs CBC & Chem 7: 10/31/20 08:22 10/31/20 08:22 Labs: Abnormal Lab Results - Last 24 Hours (Table) 10/30/20 10/30/20 10/30/20 Range/Units 11:50 16:45 20:11 WBC (3.8-10.6) k/uL Neutrophils # (1.3-7.7) k/uL Lymphocytes # (1.0-4.8) k/uL Sodium (137-145) mmol/L Chloride (98-107) mmol/L Carbon Dioxide (22-30) mmol/L Creatinine (0.66-1.25) mg/dL Glucose (74-99) mg/dL POC Glucose (mg/dL) 172 H 172 H 121 H (75-99) mg/dL 10/31/20 10/31/20 10/31/20 Range/Units 06:11 08:22 08:22 WBC 14.7 H (3.8-10.6) k/uL Neutrophils # 13.2 H (1.3-7.7) k/uL Lymphocytes # 0.7 L (1.0-4.8) k/uL Sodium 126 L (137-145) mmol/L Chloride 85 L (98-107) mmol/L Carbon Dioxide 32 H (22-30) mmol/L Creatinine 0.43 L (0.66-1.25) mg/dL Glucose 203 H (74-99) mg/dL POC Glucose (mg/dL) 115 H (75-99) mg/dL 10/31/20 Range/Units 11:33 WBC (3.8-10.6) k/uL Neutrophils # (1.3-7.7) k/uL Lymphocytes # (1.0-4.8) k/uL Sodium (137-145) mmol/L Chloride (98-107) mmol/L Carbon Dioxide (22-30) mmol/L Creatinine (0.66-1.25) mg/dL Glucose (74-99) mg/dL POC Glucose (mg/dL) 134 H (75-99) mg/dL Microbiology - Last 24 Hours (Table) 10/29/20 20:13 Gram Stain - Final Sputum Sputum Culture - Final Assessment and Plan Assessment: -Acute severe end-stage COPD exacerbation in an ex-smoker. on bronchodilators, IV steroids and inhaled steroids. Pulmonary team on the case and cleared him for discharge. We will check for home oxygen -Acute hypoxic respiratory failure secondary to COPD exacerbation. On supplemental oxygen -hyponatremia, check urine and serum is osmolality check TSH, check urine sodium -Alpha-1 antitrypsin deficiency -Elevated troponin, evaluated by switch crew supervisor, no further workup most likely leaked enzymes -Essential hypertension, continue with lisinopril -Chronic insomnia continue with melatonin -Metabolic alkalosis from steroids DVT prophylaxis started on Lovenox GI prophylaxis: Pepcid Care was discussed with the patient.
--- NOTE | 2020-10-31 13:54 | P.PN ---
Subjective Progress Note Date: 10/31/20 Principal diagnosis: Shortness of breath. 55-year-old male with a history of severe COPD. The patient was last seen by my partner in July 2020. In his note, my partner points out that the patient's FEV1 is 19% of predicted, and his diffusing capacity corrected for alveolar volume is only 40%. Hence, the patient has stage IV/end-stage emphysema. The patient was brought to the emergency room by EMS. He arrived on 10/27/2020, at 05 51. His complaint was that of increasing shortness of breath. He been short of breath for about 4 days. He was using his updraft treatments at home but they were not working. He was quite tight in the chest, and was wheezing. He was also coughing and producing some phlegm. He denied any fever or chills. He denied any chest pain or chest discomfort. The patient was admitted with a diagnosis of COPD exacerbation. He was initially seen at [facility], and transferred down for further treatment. His family doctors here in [facility]. Currently, the patient is receiving oxygen at 5 L. He appears to be improved somewhat. He's feeling better and is less short of breath. 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 He did not qualify for replacement therapy. In addition to COPD, the patient has a history of hypertension. On 10/28/2020 patient seen in follow-up. He is awake and she states he is breathing easier, still bronchospastic, still dyspneic, but breathing easier. Today he is on 5 L of oxygen pulse ox is 93-98%, afebrile, lung sounds reveal diminished breath sounds bilaterally, with scattered end expiratory wheezes. He is on nebulized bronchodilators, doxycycline, IV steroids Progress note dated 10/29/2020. 55-year-old gentleman with history of stage IV chronic lung disease. He sees my partner in the office. The patient has an FEV1 that's 19% of predicted. Currently, the patient is on oxygen at 5 L. He may have to be discharged home on oxygen. I don't know if he will permanently need oxygen or not. That can be determined at a later date. Currently, he is feeling much improved. He is much less short of breath. He's not coughing or wheezing. Does not chest pain or chest discomfort. The patient does have a history of MZ phenotype alpha-1 antitrypsin disease, but was not a candidate for replacement therapy. In addition to COPD, the patient has a history of hypertension. The patient denies any phlegm production. His breathing is improved. He denies any significant wheezing. I spent a great deal of time tell telling the patient that his lung function was very poor. I wanted him to understand his diagnosis, so that if he should be admitted again, he remembers that he only has 19% lung function. Progress note dated 10/30/2020. 55-year-old male, with a history of severe, stage IV COPD. He sees one of my partners in the office, and has an FEV1 that is 19% of predicted. Currently, he is on O2 at 5 L, but with his saturations, at 97%, I reduce the FiO2 down to 4 L. He may or may not have to go home on oxygen therapy. He is feeling a bit b daisy. He still short of breath with exertion. He is currently receiving all appropriate medications including DuoNeb, Pulmicort, formoterol, and systemic corticosteroids. His white count is 13.8, hemoglobin 13.5, hematocrit 42, and platelet count 291,000. Sodium 128, potassium 4.6, chloride 87, CO2 40, anion gap 1, BUN 16, and creatinine 0.46. He is clearly a CO2 retainer. We should accept saturations between 88-92%. Microbiology is negative or pending. No recent chest x-rays to review at this time. Progress note dated 10/31/2020. 55-year-old male, with history of severe, stage IV COPD. FEV1 is 19% of predicted. The patient is improving. He may need to go home on oxygen therapy. Currently, he is on 3-4 L nasal cannula. He is on appropriate medications including DuoNeb, Pulmicort, formoterol, and systemic corticosteroids. He is also on oral antibiotics. His issue is shortness of breath on any activity. Currently, his vital signs show a temperature 97.6, heart rate 84, respiratory rate 18, and blood pressure 151/104. 4 L saturation is 98%. White count is 14.7, hemoglobin 15.4, hematocrit 47.7, and platelet count 300,000. Sodium 126, potassium 4.8, chloride 85, CO2 32, anion gap 9, BUN 20, creatinine 0.43. Microbiology is negative. There has not been a recent chest x-ray. Medications are reviewed. Objective - Vital Signs Vital signs: Vital Signs Temp 97.6 F 10/31/20 11:51 Pulse 84 10/31/20 11:52 Resp 18 10/31/20 11:52 BP 151/104 10/31/20 11:51 Pulse Ox 98 10/31/20 11:51 Intake & Output 10/30/20 10/31/20 10/31/20 18:59 06:59 18:59 Intake Total 1315 300 Output Total 64 Balance 1315 236 Weight 71.4 kg Intake: Intake, IV Titration 600 Amount Sodium Chloride 0.9% 1, 600 000 ml @ 75 mls/hr IV . [id number] [facility] Rx#:[id number] Oral 715 300 Output: Post Void Residual 64 Other: # Voids 1 - Exam No acute distress, nasal O2 in place of 4 L. No conversational dyspnea, use of accessory muscles, or audible wheezing. HEENT examination is grossly unremarkable. Neck supple, with full range of motion. No adenopathy or thyromegaly. Neck veins are flat. Cardiovascular examination reveals regular rhythm rate. Heart rate is 84 bpm. S1-S2 normal. No S3-S4 murmur. Lungs reveal severely diminished breath sounds throughout. No distinct wheezes rhonchi or crackles. There is prolongation on forced maneuver. Breath sounds are certainly improved. Abdomen soft bowel sounds are heard. No masses or tenderness. Extremities are intact. No cyanosis clubbing or edema. Skin without rash. Neurologic examination is brief but nonfocal. - Labs CBC & Chem 7: 10/31/20 08:22 10/31/20 08:22 Labs: Abnormal Lab Results - Last 24 Hours (Table) 10/30/20 10/30/20 10/31/20 Range/Units 16:45 20:11 06:11 WBC (3.8-10.6) k/uL Neutrophils # (1.3-7.7) k/uL Lymphocytes # (1.0-4.8) k/uL Sodium (137-145) mmol/L Chloride (98-107) mmol/L Carbon Dioxide (22-30) mmol/L Creatinine (0.66-1.25) mg/dL Glucose (74-99) mg/dL POC Glucose (mg/dL) 172 H 121 H 115 H (75-99) mg/dL Osmolality (280-301) mosm/kg 10/31/20 10/31/20 10/31/20 Range/Units 08:22 08:22 08:22 WBC 14.7 H (3.8-10.6) k/uL Neutrophils # 13.2 H (1.3-7.7) k/uL Lymphocytes # 0.7 L (1.0-4.8) k/uL Sodium 126 L (137-145) mmol/L Chloride 85 L (98-107) mmol/L Carbon Dioxide 32 H (22-30) mmol/L Creatinine 0.43 L (0.66-1.25) mg/dL Glucose 203 H (74-99) mg/dL POC Glucose (mg/dL) (75-99) mg/dL Osmolality 279 L (280-301) mosm/kg 10/31/20 Range/Units 11:33 WBC (3.8-10.6) k/uL Neutrophils # (1.3-7.7) k/uL Lymphocytes # (1.0-4.8) k/uL Sodium (137-145) mmol/L Chloride (98-107) mmol/L Carbon Dioxide (22-30) mmol/L Creatinine (0.66-1.25) mg/dL Glucose (74-99) mg/dL POC Glucose (mg/dL) 134 H (75-99) mg/dL Osmolality (280-301) mosm/kg Microbiology - Last 24 Hours (Table) 10/29/20 20:13 Gram Stain - Final Sputum Sputum Culture - Final Assessment and Plan Assessment: Acute hypoxemic respiratory failure, secondary to COPD exacerbation. Severe/stage IV/end-stage COPD, with an FEV1 that is 19% of predicted, and diffusing capacity corrected for alveolar volume which is 40%. Prior history of heavy tobacco use. History of essential hypertension. History of MZ phenotype alpha-1 antitrypsin disease, who does not qualify for replacement therapy. Plan: Plan dated 10/31/2020. The patient might be considered for discharge in the near future. He should be discharged home on albuterol sulfate, and ipratropium bromide, by nebulization, 4 times a day and when necessary. In addition, the patient should be sent home on either Advair, Symbicort, Dulera or Breo. Alternatively, if the patient is not sent home on ipratropium bromide, the patient can receive a long-acting muscarinic antagonist, such as Spiriva. Also, the patient will need to be evaluated for home oxygen therapy. He should have a resting room air saturation, and a saturation when he walks up and down the [place], without oxygen. The patient does not need to be discharged home on antibiotics. Finally, the patient should be sent home on a tapering dose of prednisone, getting with 40 mg a day for 4 or 5 days, reducing the dose by 10 mg every fifth or sixth day. The patient will need to follow-up with my partner in the office. No additional recommendations are made. Should the patient not be discharged, we'll continue to follow make recommendations. Time with Patient: Less than 30
[2020-10-31 16:39] LABS: Glucose,Whole Blood 153 mg/dL (75-99)
[2020-10-31] MEDS: lisinopriL 20 MG TAB PO SCH (16:46)
[2020-10-31 20:30] LABS: Glucose,Whole Blood 141 mg/dL (75-99)
[2020-10-31] MEDS: MELATONIN 5 MG TABLET PO SCH (21:03)
[2020-10-31] MEDS: MIRTAZAPINE 15 MG TAB PO SCH (21:03)
[2020-11-01] MEDS: INSULIN ASPART (NovoLOG) 100 UNIT/ML VIAL SQ SCH ×2 (06:30→12:08)
[2020-11-01 06:32] LABS: Glucose,Whole Blood 118 mg/dL (75-99)
[2020-11-01 06:33] VITALS: RESP 18
[2020-11-01] MEDS: methylPREDNISolone SOD SUCCI 125 MG/2 ML VIAL IV SCH ×2 (06:35→12:16)
[2020-11-01 07:26] LABS: Basophils # (A) 0.1 k/uL (0-0.2); Basophils % (A) 0 %; Eosinophils # (A) 0.1 k/uL (0-0.7); Eosinophils % (A) 1 %; HCT 45.8 % (39.0-53.0); HGB 14.9 gm/dL (13.0-17.5); Lymphocytes # (A) 0.8 k/uL (1.0-4.8); Lymphocytes % (A) 6 %; MCH 29.8 pg (25.0-35.0); MCHC 32.5 g/dL (31.0-37.0); MCV 91.7 fL (80.0-100.0); Monocytes % (A) 7 %; Neutrophils # (A) 12.1 k/uL (1.3-7.7); Neutrophils % (A) 86 %; Platelet Count 325 k/uL (150-450); RBC 4.99 m/uL (4.30-5.90); RDW 12.6 % (11.5-15.5); WBC 14.1 k/uL (3.8-10.6)
[2020-11-01 07:38] LABS: African American GFR (CKD) >90 (>60 ml/min/1.73 sqM); Anion Gap 5 mmol/L; Blood Urea Nitrogen 21 mg/dL (9-20); Calcium 8.5 mg/dL (8.4-10.2); Carbon Dioxide 38 mmol/L (22-30); Chloride 85 mmol/L (98-107); Glucose 117 mg/dL (74-99); Non-African American GFR(CKD) >90 (>60 ml/min/1.73 sqM); Potassium 4.6 mmol/L (3.5-5.1); Sodium 128 mmol/L (137-145)
[2020-11-01] MEDS: IPRATROPIUM-ALBUTEROL 3 ML NEB INHALATION SCH ×3 (07:45→16:24)
[2020-11-01] MEDS: FORMOTEROL FUMARATE 20 MCG/2 ML NEBU INHALATION SCH (07:45)
[2020-11-01] MEDS: BUDESONIDE 1 MG/2 ML NEBU INHALATION SCH (07:45)
[2020-11-01 08:51] VITALS: TEMP 98
[2020-11-01] MEDS: DOXYCYCLINE 100 MG CAP PO SCH (09:55)
[2020-11-01] MEDS: MULTIVITAMINS, THERA 1 EACH TAB PO SCH (09:55)
[2020-11-01] MEDS: guaiFENesin 600 MG TABLET.ER PO SCH ×2 (09:56→12:16)
[2020-11-01] MEDS: ASCORBIC ACID 500 MG TAB PO SCH (09:56)
[2020-11-01] MEDS: FAMOTIDINE 20 MG TAB PO SCH (09:56)
[2020-11-01] MEDS: ENOXAPARIN 40 MG/0.4 ML SYRINGE SQ SCH (09:56)
--- NOTE | 2020-11-01 11:05 | P.NPCON ---
History of Present Illness - Reason for Consult hyponatremia - History of Present Illness Reason for consultation: Hyponatremia History of present illness: Patient is a 55-year-old male seen in renal consultation for hyponatremia. Patient presented to the hospital on 10/27/2020 with shortness of breath. Patient has history of alpha-1 antitrypsin deficiency he is currently on 3 L nasal cannula. Blood pressure stable. No fever or chills. Oral intake has been good. No vomiting or diarrhea. No history of cancer. Patient's sodium level has been in the range of 126 to 1:30 to his admission. It was 126 yesterday and is 128 today. He has been drinking quite a bit of water and was placed on fluid restriction yesterday. He is also on Remeron which she states was started about a month ago. Denies taking any diuretics. Blood sugars are controlled. No hematuria or dysuria. No nausea. Vital signs are stable. General: The patient appeared well nourished and normally developed. HEENT: Head exam is unremarkable. Neck is without jugular venous distension. LUNGS: Breath sounds decreased. HEART: Rate and Rhythm are regular. ABDOMEN: Soft, nontender. EXTREMITITES: No edema. Past Medical History Past Medical History: Asthma, COPD, Hypertension Additional Past Medical History / Comment(s): Bronchitis, Alpha 1 antitrypsin de ficiency, pancreatitis. History of Any Multi-Drug Resistant Organisms: None Reported Past Surgical History: Tonsillectomy Additional Past Surgical History / Comment(s): Colonoscopy Past Anesthesia/Blood Transfusion Reactions: No Reported Reaction Smoking Status: Former smoker - Past Family History Mother Family Medical History: Hypertension Additional Family Medical History / Comment(s): Hip/knee replacements. Mother in her sleep in her 70s. Father Family Medical History: CVA/TIA Additional Family Medical History / Comment(s): Father is . Medications and Allergies Home Medications Medication Instructions Recorded Confirmed Type Albuterol Nebulized [Ventolin 2.5 mg INHALATION RT-TID PRN 02/18/20 10/27/20 History Nebulized] Albuterol Sulfate [Ventolin HFA] 2 puff INHALATION RT-Q4H PRN 02/18/20 10/27/20 History Fluticasone/Umeclidin/Vilanter 1 puff INHALATION RT-DAILY 02/18/20 10/27/20 History [Trelecynthia Ellipta 100-62.5-25] lisinopriL [Zestril] 20 mg PO DAILY@1400 02/18/20 10/27/20 History Ascorbic Acid [Vitamin C] 500 mg PO DAILY 10/27/20 10/27/20 History Melatonin 5 mg PO HS 10/27/20 10/27/20 History Mirtazapine 7.5 mg PO HS 10/27/20 10/27/20 History Multivitamins, Thera [Multivitamin 1 tab PO DAILY 10/27/20 10/27/20 History (formulary)] Allergies Allergy/AdvReac Type Severity Reaction Status Date / Time ampicillin Allergy Unknown Verified 10/27/20 07:19 Childhood Penicillins Allergy Unknown Verified 10/27/20 07:19 Childhood Physical Exam Vitals: Vital Signs Temp Pulse Pulse Resp BP Pulse Ox Pulse Ox 11/01/20 10:15 94 L 11/01/20 08:13 88 11/01/20 08:03 80 11/01/20 08:02 80 11/01/20 08:00 98.0 F 93 18 127/77 93 L 11/01/20 07:47 84 11/01/20 04:00 98.7 F 69 18 142/86 96 11/01/20 02:00 81 17 11/01/20 00:00 98.1 F 81 17 114/65 98 10/31/20 20:36 96 10/31/20 20:26 96 10/31/20 20:25 94 10/31/20 20:19 90 10/31/20 20:00 97.8 F 97 18 148/65 92 L 10/31/20 16:24 98.7 F 83 20 128/66 95 10/31/20 15:53 80 10/31/20 15:43 76 10/31/20 11:52 84 18 10/31/20 11:51 97.6 F 78 20 151/104 98 10/31/20 11:42 88 18 Pulse Ox Pulse Ox 11/01/20 10:15 88 L 86 L 11/01/20 08:13 11/01/20 08:03 11/01/20 08:02 11/01/20 08:00 11/01/20 07:47 11/01/20 04:00 11/01/20 02:00 11/01/20 00:00 10/31/20 20:36 10/31/20 20:26 10/31/20 20:25 10/31/20 20:19 10/31/20 20:00 10/31/20 16:24 10/31/20 15:53 10/31/20 15:43 10/31/20 11:52 10/31/20 11:51 10/31/20 11:42 Intake and Output 10/31/20 11/01/20 11/01/20 22:59 06:59 14:59 Intake Total 350 240 Output Total 0 Balance 350 240 Intake: Oral 350 240 Output: Urine 0 Other: # Voids 2 Weight 68.1 kg Results - Lab Results Most recent lab results Calcium 8.5 mg/dL (8.4-10.2) 11/01/20 06:36 11/01/20 06:36 11/01/20 06:36 Assessment and Plan Plan: Assessment: 1. Euvolemic hyponatremia from excess fluid intake as well as Remeron which can induce SIADH. Sodium level CXXVIII today. TSH normal. Urine sodium 68 and urine osmolality 562. 2. Severe COPD with history of alpha-1 antitrypsin deficiency. 3. Benign hypertension. Controlled. Plan: Maintain 1200 mL fluid restriction. Encourage oral intake, particularly protein. Will discuss with PCP if alternative to Remeron can be used. Continue to monitor. Repeat BMP and magnesium level to 3 days postdischarge. Follow up outpatient in 1 week. Thank you for the consultation. I will continue to follow the patient with you during his hospital stay.
--- NOTE | 2020-11-01 11:25 | P.PN ---
Subjective Progress Note Date: 11/01/20 55-year-old male with a history of severe COPD. The patient was last seen by my partner in July 2020. In his note, my partner points out that the patient's FEV1 is 19% of predicted, and his diffusing capacity corrected for alveolar volume is only 40%. Hence, the patient has stage IV/end-stage emphysema. The patient was brought to the emergency room by EMS. He arrived on 10/27/2020, at 05 51. His complaint was that of increasing shortness of breath. He been short of breath for about 4 days. He was using his updraft treatments at home but they were not working. He was quite tight in the chest, and was wheezing. He was also coughing and producing some phlegm. He denied any fever or chills. He denied any chest pain or chest discomfort. The patient was admitted with a diagnosis of COPD exacerbation. He was initially seen at [facility], and transferred down for further treatment. His family doctors here in [facility]. Currently, the patient is receiving oxygen at 5 L. He appears to be improved somewhat. He's feeling better and is less short of breath. 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 He did not qualify for replacement therapy. In addition to COPD, the patient has a history of hypertension. On 10/28/2020 patient seen in follow-up. He is awake and she states he is breathing easier, still bronchospastic, still dyspneic, but breathing easier. Today he is on 5 L of oxygen pulse ox is 93-98%, afebrile, lung sounds reveal diminished breath sounds bilaterally, with scattered end expiratory wheezes. He is on nebulized bronchodilators, doxycycline, IV steroids Progress note dated 10/29/2020. 55-year-old gentleman with history of stage IV chronic lung disease. He sees my partner in the office. The patient has an FEV1 that's 19% of predicted. Currently, the patient is on oxygen at 5 L. He may have to be discharged home on oxygen. I don't know if he will permanently need oxygen or not. That can be determined at a later date. Currently, he is feeling much improved. He is much less short of breath. He's not coughing or wheezing. Does not chest pain or chest discomfort. The patient does have a history of MZ phenotype alpha-1 antitrypsin disease, but was not a candidate for replacement therapy. In addition to COPD, the patient has a history of hypertension. The patient denies any phlegm production. His breathing is improved. He denies any significant wheezing. I spent a great deal of time tell telling the patient that his lung function was very poor. I wanted him to understand his diagnosis, so that if he should be admitted again, he remembers that he only has 19% lung function. Progress note dated 10/30/2020. 55-year-old male, with a history of severe, stage IV COPD. He sees one of my partners in the office, and has an FEV1 that is 19% of predicted. Currently, he is on O2 at 5 L, but with his saturations, at 97%, I reduce the FiO2 down to 4 L. He may or may not have to go home on oxygen therapy. He is feeling a bit better. He still short of breath with exertion. He is currently receiving all appropriate medications including DuoNeb, Pulmicort, formoterol, and systemic corticosteroids. His white count is 13.8, hemoglobin 13.5, hematocrit 42, and platelet count 291,000. Sodium 128, potassium 4.6, chloride 87, CO2 40, anion gap 1, BUN 16, and creatinine 0.46. He is clearly a CO2 retainer. We should accept saturations between 88-92%. Microbiology is negative or pending. No recent chest x-rays to review at this time. Progress note dated 10/31/2020. 55-year-old male, with history of severe, stage IV COPD. FEV1 is 19% of predicted. The patient is improving. He may need to go home on oxygen therapy. Currently, he is on 3-4 L nasal cannula. He is on appropriate medications including DuoNeb, Pulmicort, formoterol, and systemic corticosteroids. He is also on oral antibiotics. His issue is shortness of breath on any activity. Currently, his vital signs show a temperature 97.6, heart rate 84, respiratory rate 18, and blood pressure 151/104. 4 L saturation is 98%. White count is 14.7, hemoglobin 15.4, hematocrit 47.7, and platelet count 300,000. Sodium 126, potassium 4.8, chloride 85, CO2 32, anion gap 9, BUN 20, creatinine 0.43. Microbiology is negative. There has not been a recent chest x-ray. Medications are reviewed. On 11/01/2020, the patient is feeling much better. Feeling much less short of breath and he is doing well without any new complaints. Is able to breathe comfortably and is not using excessive muscle breathing. On his blood work from today, the patient had no significant abnormalities. His white cell count is at 14 and the patient's sodium level is at 128 with a BUN of 21 and creatinine of 0.4. His coronary vitals COVID 19 testing was done at [facility] and it was negative. The patient is being considered for discharge today on oxygen at 3 L per minute nasal cannula and the patient has Trelegy at home in addition to a nebulizer and he will need a prednisone burst taper. He is on doxycycline as an empiric antibiotic coverage. Objective - Vital Signs Vital signs: Vital Signs Temp 98.0 F 11/01/20 08:00 Pulse 88 11/01/20 08:13 Resp 18 11/01/20 08:00 BP 127/77 11/01/20 08:00 Pulse Ox 88 L 11/01/20 10:15 Intake & Output 10/31/20 11/01/20 11/01/20 18:59 06:59 18:59 Intake Total 1150 240 Output Total 64 0 Balance 1086 0 240 Weight 68.1 kg Intake: Intake, IV Titration 0 Amount Sodium Chloride 0.9% 1, 0 000 ml @ 75 mls/hr IV . [id number] CLAUDE Rx#:[id number] Oral 1150 240 Output: Urine 0 Post Void Residual 64 Other: # Voids 2 - Exam No acute distress, nasal O2 in place of 4 L. No conversational dyspnea, use of accessory muscles, or audible wheezing. HEENT examination is grossly unremarkable. Neck supple, with full range of motion. No adenopathy or thyromegaly. Neck ve ins are flat. Cardiovascular examination reveals regular rhythm rate. Heart rate is 84 bpm. S1-S2 normal. No S3-S4 murmur. Lungs reveal severely diminished breath sounds throughout. No distinct wheezes rhonchi or crackles. There is prolongation on forced maneuver. Breath sounds are certainly improved. Abdomen soft bowel sounds are heard. No masses or tenderness. Extremities are intact. No cyanosis clubbing or edema. Skin without rash. Neurologic examination is brief but nonfocal. - Labs CBC & Chem 7: 11/01/20 06:36 11/01/20 06:36 Labs: Abnormal Lab Results - Last 24 Hours (Table) 10/31/20 10/31/20 10/31/20 Range/Units 08:22 11:33 16:37 WBC (3.8-10.6) k/uL Neutrophils # (1.3-7.7) k/uL Lymphocytes # (1.0-4.8) k/uL Sodium (137-145) mmol/L Chloride (98-107) mmol/L Carbon Dioxide (22-30) mmol/L BUN (9-20) mg/dL Creatinine (0.66-1.25) mg/dL Glucose (74-99) mg/dL POC Glucose (mg/dL) 134 H 153 H (75-99) mg/dL Osmolality 279 L (280-301) mosm/kg 10/31/20 11/01/20 11/01/20 Range/Units 20:28 06:30 06:36 WBC 14.1 H (3.8-10.6) k/uL Neutrophils # 12.1 H (1.3-7.7) k/uL Lymphocytes # 0.8 L (1.0-4.8) k/uL Sodium (137-145) mmol/L Chloride (98-107) mmol/L Carbon Dioxide (22-30) mmol/L BUN (9-20) mg/dL Creatinine (0.66-1.25) mg/dL Glucose (74-99) mg/dL POC Glucose (mg/dL) 141 H 118 H (75-99) mg/dL Osmolality (280-301) mosm/kg 11/01/20 Range/Units 06:36 WBC (3.8-10.6) k/uL Neutrophils # (1.3-7.7) k/uL Lymphocytes # (1.0-4.8) k/uL Sodium 128 L (137-145) mmol/L Chloride 85 L (98-107) mmol/L Carbon Dioxide 38 H (22-30) mmol/L BUN 21 H (9-20) mg/dL Creatinine 0.40 L (0.66-1.25) mg/dL Glucose 117 H (74-99) mg/dL POC Glucose (mg/dL) (75-99) mg/dL Osmolality (280-301) mosm/kg Microbiology - Last 24 Hours (Table) 10/29/20 20:13 Gram Stain - Final Sputum Sputum Culture - Final Assessment and Plan Plan: 1 Acute hypoxemic respiratory failure, secondary to COPD exacerbation. The pat ient is improving for now and the patient has advanced COPD and the patient will be discharged home on Trelegy in addition to albuterol and prednisone burst taper 2 Severe/stage IV/end-stage COPD, with an FEV1 that is 19% of predicted, and diffusing capacity corrected for alveolar volume which is 40%. 3 Prior history of heavy tobacco use. 4 History of essential hypertension. 5 History of MZ phenotype alpha-1 antitrypsin disease, who does not qualify for replacement therapy. Plan May potentially get discharged home today Continue Trelegy one inhalation a day at home Continue albuterol nebulized treatment 4 times a day [id number] Prednisone burst taper starting with 40 mg to be tapered by 10 mg every 4 days Mucinex BID as needed Outpatient follow-up.
[2020-11-01 12:07] LABS: Glucose,Whole Blood 96 mg/dL (75-99)
--- NOTE | 2020-11-01 12:14 | XR ---
EXAMINATION TYPE: XR chest 2V DATE OF EXAM: 11/01/2020 COMPARISON: Chest x-ray from outside institution dated 10/27/2020 HISTORY: Shortness of breath TECHNIQUE: Frontal and lateral views of the chest are obtained. FINDINGS: There is no focal air space opacity, pleural effusion, or pneumothorax seen. The cardiac silhouette size is within normal limits, stable. The aorta is dense. There is hyperinflation, flatten ing the hemidiaphragms. Interstitium is mildly increased. The osseous structures are intact. There a re overlying cardiac leads. IMPRESSION: Correlate for possible COPD. There may be underlying emphysema, interstitial lung diseas e.
[2020-11-01] MEDS: lisinopriL 20 MG TAB PO SCH (12:16)
[2020-11-01 13:10] VITALS: BP 132/75
[2020-11-01] MEDS ORDERED: PNEUMOCOCCAL VACC-PNEUMOVAX 23 25 MCG/0.5 ML VIAL IM ONE (15:59)
[2020-11-01 16:28] VITALS: PULSE 80
--- NOTE | 2020-11-02 00:30 | P.DS ---
Providers Date of admission: 10/27/20 06:45 Attending physician: Rigo Solomon Consults: 10/27/20 06:45 Consult Physician Stat Consulting Provider: Mayco Chen Consult Reason/Comments: elevated trop Do you want consulting provider notified?: Already Contacted 10/27/20 07:30 Consult Physician Urgent Consulting Provider: Lee Land Consult Reason/Comments: antitrypsin hx? severe COPD exacerbation Do you want consulting provider notified?: Yes, Notify in am 10/31/20 11:53 Consult Physician Urgent Consulting Provider: Dewayne Carr Consult Reason/Comments: hyponatremia Do you want consulting provider notified?: Yes Primary care physician: Wolf Irizarry Hospital Course: Diagnoses: -Acute severe and advanced COPD exacerbation in an ex-smoker. -Acute hypoxic respiratory failure secondary to COPD exacerbation. Discharged on home oxygen -hyponatremia, improving. Rn Documentation recommended to stop her metformin and follow-up as an outpatient -Alpha-1 antitrypsin deficiency -Elevated troponin, evaluated by service representative, no further workup most likely leaked enzymes -Essential hypertension, continue with lisinopril -Chronic insomnia continue with melatonin -Metabolic alkalosis from steroids Hospital course: This is a pleasant 55-year-old patient of Dr. Irizarry. Patient has a history of alpha-1 antitrypsin deficiency and is a previous smoker. Patient presents with 10 days of increasing shortness of breath and wheezing. Found to have acute exacerbation of advanced COPD. With acute hypoxic respiratory failure. Patient has been treated with Solu-Medrol, doxycycline and a bronchodilator. Pulmonary was following the case closely. Patient of seizure requirement decreased to 3 L/m, his respiratory status significantly improved and he is breathing quietly on discharge Eventually patient was cleared for discharge by pulmonary service. Patient will need home oxygen upon discharge Also he has undergone hyponatremia since admission at 129, and remained stable and on discharge was 128 improving from 126. Rn Documentation full-thickness closely and recommended to stop from her on with fluid restriction 1200 mL per day, patient informed and he agrees. Patient was instructed to follow up as an outpatient, he agrees to follow up with his PCP Dr. Irizarry to check his sodium but he does not want to follow up with [facility] stating he is already seen to many doctors However Patient is back to his baseline with no chest pain. No coughing. No change in urine or bowel habits. No abdominal pain. No fever. Patient was cleared for discharge by pulmonary and nephrology service Problems and management plan were discussed with the patient and he verbalized understanding and acceptance Patient was found stable and can be discharged home however he needs follow-up a s an outpatient. Patient was instructed to follow up with PCP Dr. Irizarry within one week and patient agrees. Patient was instructed to follow up with Dr. Corbin in 1-2 weeks and [facility] Dr[address] Carr in 1-2 weeks and he agrees to call and make appointment Physical exam Gen: patient is a AAOx3, no distress CVS: S1-S2, RRR, no murmur Lungs: B/L CTA, no wheezing Abdomen: soft, no distention, no tenderness, positive bowel sounds Extremity: no leg edema or induration Time spent more than 35 minutes Patient Condition at Discharge: Stable Plan - Discharge Summary New Discharge Prescriptions: New RX: predniSONE 10 mg PO DIRECTED 16 Days #40 tab RX: Ipratropium-Albuterol Nebulize [Duoneb 0.5 mg-3 mg/3 ml Soln] 3 ml INH ALATION RT-QID #100 ml RX: Formoterol Fumarate [Perforomist] 20 mcg INHALATION RT-BID #1 nebu diphenhydrAMINE [Benadryl] 25 mg PO HS PRN #7 capsule PRN Reason: Insomnia Famotidine [Pepcid] 20 mg PO BID #60 tablet Continue RX: lisinopriL [Zestril] 20 mg PO DAILY@1400 RX: Fluticasone/Umeclidin/Vilanter [Trelegy Ellipta 100-62.5-25] 1 puff INHALATION RT-DAILY RX: Albuterol Sulfate [Ventolin HFA] 2 puff INHALATION RT-Q4H PRN PRN Reason: Shortness Of Breath RX: Albuterol Nebulized [Ventolin Nebulized] 2.5 mg INHALATION RT-TID PRN PRN Reason: Shortness Of Breath RX: Multivitamins, Thera [Multivitamin (formulary)] 1 tab PO DAILY RX: Ascorbic Acid [Vitamin C] 500 mg PO DAILY Discontinued RX: Mirtazapine 7.5 mg PO HS RX: Melatonin 5 mg PO HS Discharge Medication List RX: Albuterol Nebulized [Ventolin Nebulized] 2.5 mg INHALATION RT-TID PRN 02/18/20 [History] RX: Albuterol Sulfate [Ventolin HFA] 2 puff INHALATION RT-Q4H PRN 02/18/20 [History] RX: Fluticasone/Umeclidin/Vilanter [Trelegy Ellipta 100-62.5-25] 1 puff INHALATION RT-DAILY 02/18/20 [History] RX: lisinopriL [Zestril] 20 mg PO DAILY@1400 02/18/20 [History] RX: Ascorbic Acid [Vitamin C] 500 mg PO DAILY 10/27/20 [History] RX: Multivitamins, Thera [Multivitamin (formulary)] 1 tab PO DAILY 10/27/20 [History] Famotidine [Pepcid] 20 mg PO BID #60 tablet 11/01/20 [Rx] RX: Formoterol Fumarate [Perforomist] 20 mcg INHALATION RT-BID #1 nebu 11/01/20 [Rx] RX: Ipratropium-Albuterol Nebulize [Duoneb 0.5 mg-3 mg/3 ml Soln] 3 ml INHALATION RT-QID #100 ml 11/01/20 [Rx] RX: predniSONE 10 mg PO DIRECTED 16 Days #40 tab 11/01/20 [Rx] diphenhydrAMINE [Benadryl] 25 mg PO HS PRN #7 capsule 11/01/20 [Rx] Follow up Appointment(s)/Referral(s): Wolf Irizarry MD [Primary Care Provider] - 1-2 days (Patient would like to make his own follow-up appointments) Dewayne Carr DO [STAFF PHYSICIAN] - 1 Week (Patient would like to make his own follow-up appointments) Simon Gaytan MD [STAFF PHYSICIAN] - 10 Days (Patient would like to make his own follow-up appointments.) Activity/Diet/Wound Care/Special Instructions: Pt would like a pneumonia vaccine prior to discharge Patient will require Home O2@ 3L due to COPD. heart healthy diet activity is restricted till you see your doctor Discharge Disposition: HOME SELF-CARE
== END 2020-11-01 17:29 | disposition home or self-care (01) | DRG 190 ==
LOC: EC 05:51 → 3SCARD 06:45
PROVIDERS: ADMIT Hospitalist; ATTEND Hospitalist
DX: J43.9 Emphysema, unspecified (principal); J96.01 Acute respiratory failure with hypoxia; E87.1 Hypo-osmolality and hyponatremia; E87.3 Alkalosis; E88.01 Alpha-1-antitrypsin deficiency; I10 Essential (primary) hypertension; F51.04 Psychophysiologic insomnia; T38.0X5A Adverse effect of glucocorticoids and synthetic analogues, initial encounter; Z87.891 Personal history of nicotine dependence; Z82.3 Family history of stroke; Z88.0 Allergy status to penicillin; Z79.899 Other long term (current) drug therapy; Z99.81 Dependence on supplemental oxygen
CPT/HCPCS: 36415; 71046; 80048; 80053; 80061; 83605; 83930; 83935; 84300; 84443; 84484; 85025; 85610; 85730; 87070; 87205; 90732; 93005; 93306; 94640; 94760; 99285

== ENCOUNTER 2020-11-22 23:23 | Inpatient (IN) | payer OTHER ==
[2020-11-23] MEDS ORDERED: ALBUTEROL NEBULIZED 2.5 MG/3 ML INHALATION STA (00:05)
[2020-11-23] MEDS ORDERED: IPRATROPIUM 0.5 MG/2.5 ML NEBU INHALATION STA (00:05)
[2020-11-23] MEDS ORDERED: SODIUM CHLORIDE 0.9% 1,000 ML IV STA ×2 (00:05)
--- NOTE | 2020-11-23 00:05 | ED ---
SOB HPI - General Chief Complaint: Shortness of Breath Stated Complaint: COPD Time Seen by Provider: 11/22/20 23:24 Source: patient, RN notes reviewed, old records reviewed Mode of arrival: ambulatory Limitations: no limitations - History of Present Illness Initial Comments: This is a 55-year-old male DF for evaluation poor strain currently secondary to sedation by EMS. Patient was given sedation secondary to combative behavior on transport. EMS was called secondary to low oxygen, who is at bedside now states patient's actions been increasing for about a day or so he was taken off his prednisone at home. Patient himself is unable to give history at this time MD Complaint: chest pain, pain with inspiration, anxiety -: hour(s) Severity: severe Severity scale (1-10): 10 Consistency: constant Improves With: nothing, rest Known History Of: COPD Context: recent URI, recent illness, other (Recently taken off steroids) Associated Symptoms: cough, sputum production Treatments Prior to Arrival: oxygen - Related Data Home Medications Medication Instructions Recorded Confirmed Albuterol Nebulized [Ventolin 2.5 mg INHALATION RT-TID PRN 02/18/20 10/27/20 Nebulized] Albuterol Sulfate [Ventolin HFA] 2 puff INHALATION RT-Q4H PRN 02/18/20 10/27/20 Fluticasone/Umeclidin/Vilanter 1 puff INHALATION RT-DAILY 02/18/20 10/27/20 [Trelecynthia Ellipta 100-62.5-25] lisinopriL [Zestril] 20 mg PO DAILY@1400 02/18/20 10/27/20 Ascorbic Acid [Vitamin C] 500 mg PO DAILY 10/27/20 10/27/20 Multivitamins, Thera [Multivitamin 1 tab PO DAILY 10/27/20 10/27/20 (formulary)] Previous Rx's Medication Instructions Recorded Famotidine [Pepcid] 20 mg PO BID #60 tablet 11/01/20 Ipratropium-Albuterol Nebulize 3 ml INHALATION RT-QID #100 ml 11/01/20 [Duoneb 0.5 mg-3 mg/3 ml Soln] diphenhydrAMINE [Benadryl] 25 mg PO HS PRN #7 capsule 11/01/20 predniSONE 10 mg PO DIRECTED 16 Days #40 11/01/20 tab Formoterol Fumarate [Perforomist] 20 mcg INHALATION BID 30 Days #120 11/03/20 ml Allergies Allergy/AdvReac Type Severity Reaction Status Date / Time ampicillin Allergy Unknown Verified 11/22/20 23:33 Childhood Penicillins Allergy Unknown Verified 11/22/20 23:33 Childhood Review of Systems ROS Statement: Those systems with pertinent positive or pertinent negative responses have been documented in the HPI. ROS Other: All systems not noted in ROS Statement are negative. Past Medical History Past Medical History: Asthma, COPD, Hypertension Additional Past Medical History / Comment(s): Bronchitis, Alpha 1 antitrypsin deficiency, pancreatitis. History of Any Multi-Drug Resistant Organisms: None Reported Past Surgical History: Tonsillectomy Additional Past Surgical History / Comment(s): Colonoscopy Past Anesthesia/Blood Transfusion Reactions: No Reported Reaction Past Psychological History: No Psychological Hx Reported Smoking Status: Former smoker - Past Family History Mother Family Medical History: Hypertension Additional Family Medical History / Comment(s): Hip/knee replacements. Mother in her sleep in her 70s. Father Family Medical History: CVA/TIA Additional Family Medical History / Comment(s): Father is . General Exam Limitations: no limitations, altered mental status General appearance: alert, anxious, lethargic, in distress Head exam: Present: atraumatic, normocephalic, normal inspection Eye exam: Present: normal appearance, PERRL, EOMI. Absent: scleral icterus, conjunctival injection, periorbital swelling ENT exam: Present: normal exam, mucous membranes moist Neck exam: Present: normal inspection. Absent: tenderness, meningismus, lymphadenopathy Respiratory exam: Present: respiratory distress, wheezes, rhonchi, accessory muscle use, decreased breath sounds, prolonged expiratory. Absent: rales, st ridor Cardiovascular Exam: Present: normal rhythm, tachycardia, normal heart sounds. Absent: systolic murmur, diastolic murmur, rubs, gallop, clicks GI/Abdominal exam: Present: soft, normal bowel sounds. Absent: distended, tenderness, guarding, rebound, rigid Extremities exam: Present: normal inspection, full ROM, normal capillary refill. Absent: tenderness, pedal edema, joint swelling, calf tenderness Back exam: Present: normal inspection Neurological exam: Present: alert, oriented X3, CN II-XII intact Psychiatric exam: Present: normal affect, normal mood Skin exam: Present: warm, dry, intact, normal color. Absent: rash Course Vital Signs 11/22/20 11/22/20 11/22/20 23:33 23:44 23:49 Temperature 97.4 F L Pulse Rate 120 H 112 H Respiratory 18 33 H 33 H Rate Blood Pressure 162/92 149/88 O2 Sat by Pulse 99 99 Oximetry 11/23/20 11/23/20 11/23/20 00:09 01:23 01:47 Temperature Pulse Rate 110 H 120 H 115 H Respiratory 29 H 22 30 H Rate Blood Pressure 138/86 122/82 119/77 O2 Sat by Pulse 95 96 93 L Oximetry 11/23/20 11/23/20 02:29 03:27 Temperature Pulse Rate 104 H 97 Respiratory 22 Rate Blood Pressure 123/75 O2 Sat by Pulse 91 L Oximetry - Reevaluation(s) Reevaluation #1: 11/23/20 03:41 Medical record is reviewed Reevaluation #2: 11/23/20 03:41 Patient placed on BiPAP on arrival to emergency department. This is due to severe respiratory distress Reevaluation #3: 11/23/20 03:41 Patient mentation mental status improves with BiPAP and was wearing off of sedative medication. Reevaluation #4: 11/23/20 03:41 Spoke patient's family, questions are answered - Consultations Consultation #1: Spoke with Dr. Solomon agrees to admit patient Medical Decision Making - Medical Decision Making 55 male with severe respiratory distress, COPD hypercapnic hypoxic respiratory failure. Patient admitted on BiPAP - Lab Data Result diagrams: 11/23/20 00:57 11/23/20 00:57 Lab Results 11/23/20 11/23/20 11/23/20 Range/Units 00:57 00:57 00:57 WBC 15.7 H (3.8-10.6) k/uL RBC 4.32 (4.30-5.90) m/uL Hgb 13.2 (13.0-17.5) gm/dL Hct 40.9 (39.0-53.0) % MCV 94.8 (80.0-100.0) fL MCH 30.5 (25.0-35.0) pg MCHC 32.2 (31.0-37.0) g/dL RDW 12.6 (11.5-15.5) % Plt Count 383 (150-450) k/uL MPV 8.7 Neutrophils % 73 % Lymphocytes % 11 % Monocytes % 7 % Eosinophils % 6 % Basophils % 1 % Neutrophils # 11.5 H (1.3-7.7) k/uL Lymphocytes # 1.8 (1.0-4.8) k/uL Monocytes # 1.1 H (0-1.0) k/uL Eosinophils # 0.9 H (0-0.7) k/uL Basophils # 0.1 (0-0.2) k/uL PT 11.1 (9.0-12.0) sec INR 1.0 (<1.2) APTT 23.3 (22.0-30.0) sec Sample Site ABG pH (7.35-7.45) ABG pCO2 (35-45) mmHg ABG pO2 (83-108) mmHg ABG HCO3 (21-25) mmol/L ABG Total CO2 (19-24) mmol/L ABG O2 Saturation (94-97) % ABG Base Excess mmol/L Chencho Test FiO2 % Sodium 132 L (137-145) mmol/L Potassium 5.1 (3.5-5.1) mmol/L Chloride 86 L (98-107) mmol/L Carbon Dioxide 38 H (22-30) mmol/L Anion Gap 8 mmol/L BUN 19 (9-20) mg/dL Creatinine 0.49 L (0.66-1.25) mg/dL Est GFR (CKD-EPI)AfAm >90 (>60 ml/min/1.73 sqM) Est GFR (CKD-EPI)NonAf >90 (>60 ml/min/1.73 sqM) Glucose 191 H (74-99) mg/dL Plasma Lactic Acid Andrei (0.7-2.0) mmol/L Calcium 9.4 (8.4-10.2) mg/dL Magnesium 1.7 (1.6-2.3) mg/dL Total Bilirubin 0.5 (0.2-1.3) mg/dL AST 28 (17-59) U/L ALT 30 (4-49) U/L Alkaline Phosphatase 184 H (38-126) U/L Lactate Dehydrogenase 533 (313-618) U/L C-Reactive Protein 144.1 H (<10.0) mg/L Total Protein 7.0 (6.3-8.2) g/dL Albumin 3.7 (3.5-5.0) g/dL Coronavirus (PCR) (Not Detectd) 11/23/20 11/23/20 11/23/20 Range/Units 00:57 01:23 01:37 WBC (3.8-10.6) k/uL RBC (4.30-5.90) m/uL Hgb (13.0-17.5) gm/dL Hct (39.0-53.0) % MCV (80.0-100.0) fL MCH (25.0-35.0) pg MCHC (31.0-37.0) g/dL RDW (11.5-15.5) % Plt Count (150-450) k/uL MPV Neutrophils % % Lymphocytes % % Monocytes % % Eosinophils % % Basophils % % Neutrophils # (1.3-7.7) k/uL Lymphocytes # (1.0-4.8) k/uL Monocytes # (0-1.0) k/uL Eosinophils # (0-0.7) k/uL Basophils # (0-0.2) k/uL PT (9.0-12.0) sec INR (<1.2) APTT (22.0-30.0) sec Sample Site rrad ABG pH 7.23 L (7.35-7.45) ABG pCO2 104 H* (35-45) mmHg ABG pO2 64 L (83-108) mmHg ABG HCO3 44 H* (21-25) mmol/L ABG Total CO2 47 H (19-24) mmol/L ABG O2 Saturation 88.8 L (94-97) % ABG Base Excess 16.0 mmol/L Chencho Test yes FiO2 40 % Sodium (137-145) mmol/L Potassium (3.5-5.1) mmol/L Chloride (98-107) mmol/L Carbon Dioxide (22-30) mmol/L Anion Gap mmol/L BUN (9-20) mg/dL Creatinine (0.66-1.25) mg/dL Est GFR (CKD-EPI)AfAm (>60 ml/min/1.73 sqM) Est GFR (CKD-EPI)NonAf (>60 ml/min/1.73 sqM) Glucose (74-99) mg/dL Plasma Lactic Acid Andrei 0.8 (0.7-2.0) mmol/L Calcium (8.4-10.2) mg/dL Magnesium (1.6-2.3) mg/dL Total Bilirubin (0.2-1.3) mg/dL AST (17-59) U/L ALT (4-49) U/L Alkaline Phosphatase (38-126) U/L Lactate Dehydrogenase (313-618) U/L C-Reactive Protein (<10.0) mg/L Total Protein (6.3-8.2) g/dL Albumin (3.5-5.0) g/dL Coronavirus (PCR) Not Detected (Not Detectd) - EKG Data -: EKG Interpreted by Me (EKG shows sinus tachycardia 122 MI 158 QRS 96 QTc 421) - Radiology Data Radiology results: report reviewed (Chest x-ray shows chronic changes bilateral lower lobes), image reviewed Critical Care Time Critical Care Time: Yes Total Critical Care Time: 65 Disposition Clinical Impression: COPD exacerbation, Hypoxia, Acute respiratory distress syndrome in adult Disposition: ADMITTED IP TO THIS HOSP Condition: Serious Is patient prescribed a controlled substance at d/c from ED?: No
--- NOTE | 2020-11-23 00:45 | XR ---
EXAM: XR Chest, 1 View CLINICAL HISTORY: ITS.REASON XR Reason: Suspected COVID-19 pneumonia TECHNIQUE: Frontal view of the chest. COMPARISON: CXR 11/01/20 FINDINGS: Lungs: Emphysema with expanded lung volumes suggesting chronic obstructive pulmonary disease. No airspace consolidation. Lungs appear similar to prior. Pleural space: No pleural effusion or pneumothorax. Heart: Unremarkable. No cardiomegaly or pulmonary vascular congestion. Mediastinum: Unremarkable. Bones/joints: No acute fracture. No dislocation. IMPRESSION: No interval change from prior exam. Note that this does not exclude Covid-19 pneumonia.
[2020-11-23 01:24] LABS: ALT 30 U/L (4-49); AST 28 U/L (17-59); African American GFR (CKD) >90 (>60 ml/min/1.73 sqM); Albumin 3.7 g/dL (3.5-5.0); Alkaline Phosphatase 184 U/L (38-126); Blood Urea Nitrogen 19 mg/dL (9-20); Calcium 9.4 mg/dL (8.4-10.2); Chloride 86 mmol/L (98-107); Glucose 191 mg/dL (74-99); LDH 533 U/L (313-618); Magnesium 1.7 mg/dL (1.6-2.3); Non-African American GFR(CKD) >90 (>60 ml/min/1.73 sqM); Potassium 5.1 mmol/L (3.5-5.1); Sodium 132 mmol/L (137-145); Total Bilirubin 0.5 mg/dL (0.2-1.3)
[2020-11-23 01:28] LABS: Anion Gap 8 mmol/L; Carbon Dioxide 38 mmol/L (22-30)
[2020-11-23 01:34] LABS: C Reactive Protein 144.1 mg/L (<10.0)
[2020-11-23 01:40] LABS: ABG Oxygen Saturation 88.8 % (94-97); ABG PH 7.23 (7.35-7.45); ABG PO2 64 mmHg (83-108); ABG TCO2 47 mmol/L (19-24)
[2020-11-23 01:42] LABS: Partial Thromboplastin Time 23.3 sec (22.0-30.0); Prothrombin Time 11.1 sec (9.0-12.0)
[2020-11-23 01:49] LABS: Basophils # (A) 0.1 k/uL (0-0.2); Basophils % (A) 1 %; Eosinophils # (A) 0.9 k/uL (0-0.7); Eosinophils % (A) 6 %; HCT 40.9 % (39.0-53.0); HGB 13.2 gm/dL (13.0-17.5); Lymphocytes # (A) 1.8 k/uL (1.0-4.8); Lymphocytes % (A) 11 %; MCH 30.5 pg (25.0-35.0); MCHC 32.2 g/dL (31.0-37.0); MCV 94.8 fL (80.0-100.0); Mean Platelet Volume 8.7; Monocytes # (A) 1.1 k/uL (0-1.0); Monocytes % (A) 7 %; Neutrophils # (A) 11.5 k/uL (1.3-7.7); Neutrophils % (A) 73 %; Platelet Count 383 k/uL (150-450); RBC 4.32 m/uL (4.30-5.90); RDW 12.6 % (11.5-15.5); WBC 15.7 k/uL (3.8-10.6)
[2020-11-23 01:49] LABS: ABG HCO3 44 mmol/L (21-25); ABG PCO2 104 mmHg (35-45); Allen Test Performed? yes
[2020-11-23] MEDS ORDERED: methylPREDNISolone SOD SUCCI 125 MG/2 ML VIAL IV STA (01:58)
[2020-11-23] MEDS ORDERED: AZITHROMYCIN 500 MG in SODIUM CHLORIDE 0.9% 250 ML IVPB STA (01:59)
[2020-11-23] MEDS: SODIUM CHLORIDE 0.9% 1,000 ML IV SCH ×3 (03:45→23:12)
[2020-11-23] MEDS: methylPREDNISolone SOD SUCCI 125 MG/2 ML VIAL IV SCH ×4 (06:59→23:13)
[2020-11-23] MEDS ORDERED: IPRATROPIUM-ALBUTEROL 3 ML NEB INHALATION SCH ×2 (08:00→10:19)
[2020-11-23] MEDS: ENOXAPARIN 40 MG/0.4 ML SYRINGE SQ SCH (08:47)
[2020-11-23] MEDS ORDERED: FORMOTEROL FUMARATE 20 MCG/2 ML NEBU INHALATION SCH (10:19)
[2020-11-23] MEDS: FAMOTIDINE 20 MG TAB PO SCH ×2 (12:27→20:01)
[2020-11-23] MEDS ORDERED: FUROSEMIDE 10 MG/ML 4 ML VIAL IV STA (14:46)
--- NOTE | 2020-11-23 15:00 | P.CNPUL ---
History of Present Illness Consult date: 11/23/20 Reason for consult: dyspnea, COPD, hypoxemia, abnormal CXR/CT Chief complaint: Acute exacerbation of COPD History of present illness: 55-year-old white male patient with history of severe COPD/emphysema, alpha-1 antitrypsin deficiency,, with baseline FEV1 of 19% of predicted and severe diffusion abnormality of 40% of predicted. Patient was recently hospitalized 10/27/2020 through 11/01/2020 for acute exacerbation of severe COPD. Up until his recent hospitalization patient was not requiring home oxygen however he was sent home on home oxygen after his last admission on 3 L. In addition patient was to complete 16 day course of prednisone taper, he was sent home on nebulized DuoNeb, Perforomist, he had already been taken Trelegy Ellipta [phone] one puff inhalation daily. Patient is an ex-smoker, however has not smoked 1 year, prior to that smoked for 36 years pack a day, in addition had smoked marijuana. His other medical history hypertension, his blood pressure medication had to be by his primary care physician Dr. Irizarry. Patient's blood pressure was running low, and his lisinopril dose was dropped from 20 mg to 5 mg daily. On 11/22/2020 patient was brought to the emergency department per EMS for severe respiratory distress, worsening hypoxia and dyspnea. Patient's is at the bedside, and providing us a history. She stated that about a week ago patient had seen Dr. Irizarry in follow-up, and he had just completed his prednisone taper and after that his symptoms of worsening dyspnea and hypoxia seemed to worsen. He was increasingly more short of breath, off, he is bringing up some greenish colored sputum. He is complaining of some chest wall soreness from coughing in the anterior sternal bone, which is reproducible with palpation. He tested negative for COVID 19. His chest x-ray showed emphysema and standard lung volumes, no airspace consolidation, but showing some interstitial prominence, he was in significant respiratory distress on arrival he was placed on BiPAP supp ort with pressures of 15 and 6 and FiO2 of 40%, his blood gas showed pO2 of 64, pCO2 of 104, and pH of 7.23, consistent with acute on chronic hypercapnic and hypoxic respiratory failure. She was started on IV steroids, empiric antibiotics, breathing treatments, he is feeling much better today, he is awaiting a bed on selective care in the emergency department, he is currently off BiPAP support and on 5 L of oxygen his pulse ox of 96%, afebrile, eating easier today, however still has some coarse diffuse crackles on physical exam Review of Systems All systems: negative Constitutional: Denies chills, Denies fever Eyes: denies blurred vision, denies pain Ears, nose, mouth and throat: Denies headache, Denies sore throat Cardiovascular: Denies chest pain, Denies shortness of breath Respiratory: Reports dyspnea, Reports home oxygen, Reports respiratory infections, Denies cough Gastrointestinal: Denies abdominal pain, Denies diarrhea, Denies nausea, Denies vomiting Musculoskeletal: Denies myalgias Integumentary: Denies pruritus, Denies rash Neurological: Denies numbness, Denies weakness Psychiatric: Denies anxiety, Denies depression Endocrine: Denies fatigue, Denies weight change Past Medical History Past Medical History: Asthma, COPD, Hypertension Additional Past Medical History / Comment(s): Bronchitis, Alpha 1 antitrypsin deficiency, pancreatitis. History of Any Multi-Drug Resistant Organisms: None Reported Past Surgical History: Tonsillectomy Additional Past Surgical History / Comment(s): Colonoscopy Past Anesthesia/Blood Transfusion Reactions: No Reported Reaction Past Psychological History: No Psychological Hx Reported Smoking Status: Former smoker - Past Family History Mother Family Medical History: Hypertension Additional Family Medical History / Comment(s): Hip/knee replacements. Mother in her sleep in her 70s. Father Family Medical History: CVA/TIA Additional Family Medical History / Comment(s): Father is . Medications and Allergies Home Medications Medication Instructions Recorded Confirmed Type Albuterol Nebulized [Ventolin 2.5 mg INHALATION RT-TID PRN 02/18/20 11/23/20 History Nebulized] Albuterol Sulfate [Ventolin HFA] 2 puff INHALATION RT-Q4H PRN 02/18/20 11/23/20 History Fluticasone/Umeclidin/Vilanter 1 puff INHALATION RT-DAILY 02/18/20 11/23/20 History [Trelegy Ellipta 100-62.5-25] lisinopriL [Zestril] 20 mg PO DAILY@1400 02/18/20 11/23/20 History Ascorbic Acid [Vitamin C] 500 mg PO DAILY 10/27/20 11/23/20 History Multivitamins, Thera [Multivitamin 1 tab PO DAILY 10/27/20 11/23/20 History (formulary)] Famotidine [Pepcid] 20 mg PO BID #60 tablet 11/01/20 11/23/20 Rx Ipratropium-Albuterol Nebulize 3 ml INHALATION RT-QID #100 ml 11/01/20 11/23/20 Rx [Duoneb 0.5 mg-3 mg/3 ml Soln] diphenhydrAMINE [Benadryl] 25 mg PO HS PRN #7 capsule 11/01/20 11/23/20 Rx Formoterol Fumarate [Perforomist] 20 mcg INHALATION RT-BID 11/23/20 11/23/20 History Allergies Allergy/AdvReac Type Severity Reaction Status Date / Time ampicillin Allergy Unknown Verified 11/23/20 06:51 Childhood Penicillins Allergy Unknown Verified 11/23/20 06:51 Childhood Physical Exam Vitals: Vital Signs Temp Pulse Resp BP Pulse Ox 11/23/20 11:30 97.9 F 96 22 120/81 96 11/23/20 05:24 101 H 32 H 116/69 94 L 11/23/20 03:48 97.9 F 96 32 H 110/71 100 11/23/20 03:27 97 11/23/20 02:29 104 H 22 123/75 91 L 11/23/20 01:47 115 H 30 H 119/77 93 L 11/23/20 01:23 120 H 22 122/82 96 11/23/20 00:09 110 H 29 H 138/86 95 11/22/20 23:49 33 H 11/22/20 23:44 112 H 33 H 149/88 99 11/22/20 23:33 97.4 F L 120 H 18 162/92 99 Intake and Output 11/22/20 11/23/20 11/23/20 22:59 06:59 14:59 Other: Weight 74.843 kg GENERAL EXAM: Alert, very pleasant, 55-year-old white male, 5 L of oxygen with pulse ox of 95%, was recently on BiPAP support with pressures of 15/60 and FiO2 of 40%, and has since improved and was able to switch over to nasal cannula and tolerating it well so far comfortable in no apparent distress. HEAD: Normocephalic/atraumatic. EYES: Normal reaction of pupils, equal size. Conjunctiva pink, sclera white. NOSE: Clear with pink turbinates. THROAT: No erythema or exudates. NECK: No masses, no JVD, no thyroid enlargement, no adenopathy. CHEST: No chest wall deformity. Symmetrical expansion. Some mild tenderness to palpation over sternal area with coughing, reproducible LUNGS: Equal air entry with diffuse coarse crackles, anteriorly and posteriorly, overall diminished breath sounds bilaterally CVS: Regular rate and rhythm, normal S1 and S2, no gallops, no murmurs, no rubs ABDOMEN: Soft, nontender. No hepatosplenomegaly, normal bowel sounds, no guarding or rigidity. EXTREMITIES: No clubbing, no edema, no cyanosis, 2+ pulses and upper and lower extremities. MUSCULOSKELETAL: Muscle strength and tone normal. SPINE: No scoliosis or deformity SKIN: No rashes CENTRAL NERVOUS SYSTEM: Alert and oriented -3. No focal deficits, tone is normal in all 4 extremities. PSYCHIATRIC: Alert and oriented -3. Appropriate affect. Intact judgment and insight. Results - Laboratory Findings CBC and BMP: 11/23/20 00:57 11/23/20 00:57 ABG ABG pH 7.23 (7.35-7.45) L 11/23/20 01:37 ABG pCO2 104 mmHg (35-45) H* 11/23/20 01:37 ABG pO2 64 mmHg (83-108) L 11/23/20 01:37 ABG O2 Saturation 88.8 % (94-97) L 11/23/20 01:37 PT/INR, D-dimer PT 11.1 sec (9.0-12.0) 11/23/20 00:57 INR 1.0 (<1.2) 11/23/20 00:57 Abnormal lab findings: Abnormal Labs 11/23/20 11/23/20 03 00:57 00:57 01:37 WBC 15.7 H Neutrophils # 11.5 H Monocytes # 1.1 H Eosinophils # 0.9 H ABG pH 7.23 L ABG pCO2 104 H* ABG pO2 64 L ABG HCO3 44 H* ABG Total CO2 47 H ABG O2 Saturation 88.8 L Sodium 132 L Chloride 86 L Carbon Dioxide 38 H Creatinine 0.49 L Glucose 191 H Alkaline Phosphatase 184 H C-Reactive Protein 144.1 H - Diagnostic Findings Chest x-ray: report reviewed, image reviewed Assessment and Plan Plan: Assessment: #1. Acute on chronic hypoxic and hypercapnic respiratory failure related to acute exacerbation of COPD, and possibility of mild diastolic CHF. COVID 19 was negative #2. Severe COPD, baseline FEV1 of 19% of predicted, stage IV COPD, on home oxygen at 3 L that was started during his last hospitalization at the beginning of November #3. Alpha-1 anti-trypsin efficiency #4. 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 Hypertension Plan: Continue IV steroids, continue breathing treatments, chest x-ray and physical exam revealed possibility of mild fluid overload, interstitial edema, give the patient 1 dose of IV Lasix 40 mg, will continue Solu-Medrol 60 mg every 6, continue Pulmicort and Perforomist, DuoNeb [id number], sputum for culture, continue azithromycin. Follow chest x-ray in the morning, follow-up labs, we'll continue to follow, will consider possibility of setting up a home device possibly BiPAP before discharge. I performed a history & physical examination of the patient and discussed their management with my nurse practitioner, Elida Cardoso. I reviewed the nurse practitioner's note and agree with the documented findings and plan of care. Lung sounds are positive for coarse crackles bilaterally The findings and the impression was discussed with the patient. I attest to the documentation by the nurse practitioner. Time with Patient: Greater than 30
[2020-11-23] MEDS: ALBUTEROL HFA INHALER INHALATION SCH ×3 (15:43→21:08)
[2020-11-23] MEDS: lisinopriL 20 MG TAB PO SCH (16:58)
--- NOTE | 2020-11-23 19:39 | P.HPIM ---
History of Present Illness H&P Date: 11/23/20 Chief Complaint: Shortness of breath History of presenting complaint: This is a pleasant 55-year-old patient of Dr. Irizarry. 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 Patient was admitted to the hospital in October, with end-stage severe COPD exacerbation. Patient was stable when he was discharged. Does have 3 L of oxygen at home. Patient was also not tapering dose of steroids. About a week ago he finished his last dose of prednisone. Symptoms started to get gradually worse. Becoming more and more short of breath. Pulse ox 97% started going down to 192%. Has been having wheezing. Patient always has some green sputum. Appetite is fair No weight loss. No fever no chills. 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 Review of systems: GEN.: Tired EYES: None HEENT: None NECK: None RESPIRATORY: As above CARDIOVASCULAR: None GASTROINTESTINAL: None GENITOURINARY: None MUSCULOSKELETAL: None LYMPHATICS: None HEMATOLOGICAL: None PSYCHIATRY: None NEUROLOGICAL: None Past medical history to include: COPD, hypertension, alpha-1 antitrypsin deficiency, pancreatitis Social history: Patient started smoking 1983 and stopped in 2019. He drink a bit heavy alcohol to the age of 27. . 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 EYES: Pupils equal. Conjunctiva normal. HEENT: External appearance of nose and ears normal, oral cavity grossly normal. NECK: JVD not raised; masses not palpable. HEART: First and second heart sounds are normal; no edema. LUNGS:[ Respiratory rate increased, decreased breath sounds prolonged expiration and wheezing, accessory muscles are working, not able to speak in full sentences. ABDOMEN: Soft, nontender, liver spleen not palpable, no masses palpable. PSYCH: [Alert and oriented x3; mood and affect slightly anxious. NEUROLOGICAL: Cranial nerves grossly intact; no facial asymmetry, power and sensation grossly intact. LYMPHATICS: No lymph nodes palpable in the axilla and neck INVESTIGATIONS, reviewed in the clinical context: WBC 15.7 hemoglobin 13.2 platelets 383 Potassium 5.1 bun 19 creatinine 0.49 CRP 144 Pro-calcitonin 0.07 Coronavirus [PCR]-not detected proBNP 777 ABG pH 7.23, pCO2 104, the O2 64 EKG tracing personally reviewed by me-sinus tachycardia nonspecific T-wave changes Chest x-ray film personally reviewed by me-hyperinflation, some chronic changes possibly Assessment and plan: -Acute severe end-stage COPD exacerbation in an ex-smoker. on bronchodilators, IV steroids and inhaled steroids. -Acute hypoxic hypercapnic respiratory failure secondary to COPD exacerbation. On BiPAP -Chronic hypoxic respiratory failure on 3 his oxygen at home -Alpha-1 antitrypsin deficiency -Essential hypertension, continue with lisinopril -Chronic insomnia continue with melatonin -DVT prophylaxison Lovenox -Mild Hyponatremia likely from excessive water intake Care was discussed with the patient and the at the bedside. Medications above. Pulmonary consulted. Patient will be following up with his pulm onologist Dr. Land to talk about lung transplant. Given the complexity and severity of patient's condition expect the patient to be in the hospital at least for 2 overnights Past Medical History Past Medical History: Asthma, COPD, Hypertension Additional Past Medical History / Comment(s): Bronchitis, Alpha 1 antitrypsin deficiency, pancreatitis. History of Any Multi-Drug Resistant Organisms: None Reported Past Surgical History: Tonsillectomy Additional Past Surgical History / Comment(s): Colonoscopy Past Anesthesia/Blood Transfusion Reactions: No Reported Reaction Past Psychological History: No Psychological Hx Reported Smoking Status: Former smoker - Past Family History Mother Family Medical History: Hypertension Additional Family Medical History / Comment(s): Hip/knee replacements. Mother in her sleep in her 70s. Father Family Medical History: CVA/TIA Additional Family Medical History / Comment(s): Father is . Medications and Allergies Home Medications Medication Instructions Recorded Confirmed Type Albuterol Nebulized [Ventolin 2.5 mg INHALATION RT-TID PRN 02/18/20 11/23/20 History Nebulized] Albuterol Sulfate [Ventolin HFA] 2 puff INHALATION RT-Q4H PRN 02/18/20 11/23/20 History Fluticasone/Umeclidin/Vilanter 1 puff INHALATION RT-DAILY 02/18/20 11/23/20 History [Trelegy Ellipta 100-62.5-25] lisinopriL [Zestril] 20 mg PO DAILY@1400 02/18/20 11/23/20 History Ascorbic Acid [Vitamin C] 500 mg PO DAILY 10/27/20 11/23/20 History Multivitamins, Thera [Multivitamin 1 tab PO DAILY 10/27/20 11/23/20 History (formulary)] Famotidine [Pepcid] 20 mg PO BID #60 tablet 11/01/20 11/23/20 Rx Ipratropium-Albuterol Nebulize 3 ml INHALATION RT-QID #100 ml 11/01/20 11/23/20 Rx [Duoneb 0.5 mg-3 mg/3 ml Soln] diphenhydrAMINE [Benadryl] 25 mg PO HS PRN #7 capsule 11/01/20 11/23/20 Rx Formoterol Fumarate [Perforomist] 20 mcg INHALATION RT-BID 11/23/20 11/23/20 History Allergies Allergy/AdvReac Type Severity Reaction Status Date / Time ampicillin Allergy Unknown Verified 11/23/20 06:51 Childhood Penicillins Allergy Unknown Verified 11/23/20 06:51 Childhood Physical Exam Vitals: Vital Signs Temp Pulse Resp BP Pulse Ox 11/23/20 05:24 101 H 32 H 116/69 94 L 11/23/20 03:48 97.9 F 96 32 H 110/71 100 11/23/20 03:27 97 11/23/20 02:29 104 H 22 123/75 91 L 11/23/20 01:47 115 H 30 H 119/77 93 L 11/23/20 01:23 120 H 22 122/82 96 11/23/20 00:09 110 H 29 H 138/86 95 11/22/20 23:49 33 H 11/22/20 23:44 112 H 33 H 149/88 99 11/22/20 23:33 97.4 F L 120 H 18 162/92 99 Intake and Output 11/22/20 11/23/20 11/23/20 22:59 06:59 14:59 Other: Weight 74.843 kg Results CBC & Chem 7: 11/23/20 00:57 11/23/20 00:57 Labs: Abnormal Lab Results - Last 24 Hours (Table) 11/23/20 11/23/20 11/23/20 Range/Units 00:57 00:57 01:37 WBC 15.7 H (3.8-10.6) k/uL Neutrophils # 11.5 H (1.3-7.7) k/uL Monocytes # 1.1 H (0-1.0) k/uL Eosinophils # 0.9 H (0-0.7) k/uL ABG pH 7.23 L (7.35-7.45) ABG pCO2 104 H* (35-45) mmHg ABG pO2 64 L (83-108) mmHg ABG HCO3 44 H* (21-25) mmol/L ABG Total CO2 47 H (19-24) mmol/L ABG O2 Saturation 88.8 L (94-97) % Sodium 132 L (137-145) mmol/L Chloride 86 L (98-107) mmol/L Carbon Dioxide 38 H (22-30) mmol/L Creatinine 0.49 L (0.66-1.25) mg/dL Glucose 191 H (74-99) mg/dL Alkaline Phosphatase 184 H (38-126) U/L C-Reactive Protein 144.1 H (<10.0) mg/L
[2020-11-23 19:48] LABS: Glucose,Whole Blood 156 mg/dL (75-99)
[2020-11-23] MEDS ORDERED: Salmeterol 50 mcg INHALER INHALATION SCH (20:00)
[2020-11-23] MEDS: INSULIN ASPART (NovoLOG) 100 UNIT/ML VIAL SQ SCH (20:01)
[2020-11-23] MEDS: FORMOTEROL FUMARATE 20 MCG/2 ML NEBU INHALATION SCH (21:09)
[2020-11-23] MEDS: BUDESONIDE 1 MG/2 ML NEBU INHALATION SCH (21:09)
[2020-11-24] MEDS: DILTIAZEM ORAL 30 MG TAB PO SCH ×2 (00:27→08:14)
[2020-11-24] MEDS: AZITHROMYCIN 500 MG in SODIUM CHLORIDE 0.9% 250 ML IVPB SCH (04:29)
[2020-11-24 06:33] LABS: Glucose,Whole Blood 164 mg/dL (75-99)
[2020-11-24] MEDS: PANTOPRAZOLE 40 MG TABLET PO SCH (06:44)
[2020-11-24] MEDS: methylPREDNISolone SOD SUCCI 125 MG/2 ML VIAL IV SCH ×4 (06:44→23:32)
[2020-11-24] MEDS: INSULIN ASPART (NovoLOG) 100 UNIT/ML VIAL SQ SCH ×4 (06:44→20:46)
[2020-11-24] MEDS: BUDESONIDE 1 MG/2 ML NEBU INHALATION SCH (07:37)
[2020-11-24] MEDS: FORMOTEROL FUMARATE 20 MCG/2 ML NEBU INHALATION SCH (07:37)
[2020-11-24] MEDS: ALBUTEROL HFA INHALER INHALATION SCH (07:37)
[2020-11-24] MEDS: SODIUM CHLORIDE 0.9% 1,000 ML IV SCH ×2 (07:47→16:39)
[2020-11-24] MEDS ORDERED: TIOTROPIUM 2.5 MCG INHALER INHALATION SCH (08:00)
[2020-11-24] MEDS: FAMOTIDINE 20 MG TAB PO SCH ×2 (08:14→20:46)
[2020-11-24] MEDS: ENOXAPARIN 40 MG/0.4 ML SYRINGE SQ SCH (08:14)
[2020-11-24] MEDS: MULTIVITAMINS, THERA 1 EACH TAB PO SCH (08:14)
[2020-11-24] MEDS: ASCORBIC ACID 500 MG TAB PO SCH (08:14)
[2020-11-24 08:51] LABS: Basophils % (A) 0 %; Eosinophils % (A) 0 %; HCT 41.1 % (39.0-53.0); HGB 13.4 gm/dL (13.0-17.5); Lymphocytes # (A) 1.4 k/uL (1.0-4.8); Lymphocytes % (A) 7 %; MCH 30.6 pg (25.0-35.0); MCHC 32.6 g/dL (31.0-37.0); MCV 93.9 fL (80.0-100.0); Mean Platelet Volume 6.7; Monocytes # (A) 0.6 k/uL (0-1.0); Monocytes % (A) 3 %; Neutrophils # (A) 17.1 k/uL (1.3-7.7); Neutrophils % (A) 89 %; Platelet Count 499 k/uL (150-450); RBC 4.38 m/uL (4.30-5.90); RDW 12.2 % (11.5-15.5); WBC 19.2 k/uL (3.8-10.6)
[2020-11-24 09:06] LABS: AST 30 U/L (17-59); African American GFR (CKD) >90 (>60 ml/min/1.73 sqM); Albumin 3.7 g/dL (3.5-5.0); Alkaline Phosphatase 155 U/L (38-126); Blood Urea Nitrogen 19 mg/dL (9-20); Calcium 9.3 mg/dL (8.4-10.2); Chloride 83 mmol/L (98-107); Glucose 205 mg/dL (74-99); Non-African American GFR(CKD) >90 (>60 ml/min/1.73 sqM); Potassium 5.1 mmol/L (3.5-5.1); Sodium 132 mmol/L (137-145); Total Bilirubin 0.4 mg/dL (0.2-1.3)
[2020-11-24] MEDS: DILTIAZEM ORAL 60 MG TAB PO SCH ×3 (09:12→20:47)
[2020-11-24 09:13] LABS: ALT 28 U/L (4-49); Anion Gap 8 mmol/L
[2020-11-24 09:17] LABS: Carbon Dioxide 41 mmol/L (22-30)
[2020-11-24] MEDS ORDERED: IPRATROPIUM-ALBUTEROL 3 ML NEB INHALATION PRN (09:53)
[2020-11-24] MEDS ORDERED: MORPHINE SULFATE 2 MG/ML SYRINGE IVP PRN (09:54)
[2020-11-24] MEDS ORDERED: FUROSEMIDE 10 MG/ML 4 ML VIAL IV STA (09:56)
--- NOTE | 2020-11-24 09:57 | P.PN ---
Subjective Progress Note Date: 11/24/20 55-year-old white male patient with history of severe COPD/emphysema, alpha-1 a ntitrypsin deficiency,, with baseline FEV1 of 19% of predicted and severe diffusion abnormality of 40% of predicted. Patient was recently hospitalized 10/27/2020 through 11/01/2020 for acute exacerbation of severe COPD. Up until his recent hospitalization patient was not requiring home oxygen however he was sent home on home oxygen after his last admission on 3 L. In addition patient was to complete 16 day course of prednisone taper, he was sent home on nebulized DuoNeb, Perforomist, he had already been taken Trelegy Ellipta 17210.525 one puff inhalation daily. Patient is an ex-smoker, however has not smoked 1 year, prior to that smoked for 36 years pack a day, in addition had smoked marijuana. His other medical history hypertension, his blood pressure medication had to be by his primary care physician Dr. Irizarry. Patient's blood pressure was running low, and his lisinopril dose was dropped from 20 mg to 5 mg daily. On 11/22/2020 patient was brought to the emergency department per EMS for severe respiratory distress, worsening hypoxia and dyspnea. Patient's is at the [facility], and providing us a history. She stated that about a week ago patient had seen Dr. Irizarry in follow-up, and he had just completed his prednisone taper and after that his symptoms of worsening dyspnea and hypoxia seemed to worsen. He was increasingly more short of breath, off, he is bringing up some greenish colored sputum. He is complaining of some chest wall soreness from coughing in the anterior sternal bone, which is reproducible with palpation. He tested negative for COVID 19. His chest x-ray showed emphysema and standard lung volumes, no airspace consolidation, but showing some interstitial prominence, he was in significant respiratory distress on arrival he was placed on BiPAP support with pressures of 15 and 6 and FiO2 of 40%, his blood gas showed pO2 of 64, pCO2 of 104, and pH of 7.23, consistent with acute on chronic hypercapnic and hypoxic respiratory failure. She was started on IV steroids, empiric antibiotics, breathing treatments, he is feeling much better today, he is awaiting a bed on selective care in the emergency department, he is currently off BiPAP support and on 5 L of oxygen his pulse ox of 96%, afebrile, eating easier today, however still has some coarse diffuse crackles on physical exam On 11/24/2020 the patient is being seen for a follow-up. As mentioned earlier, he is a case of severe COPD. He was in slight for an acute COPD exacerbation. Earlier this morning, after receiving a Perforomist nebulized treatment, the patient became acutely short of breath bronchospastic and wheezy and is quite anxious. Accordingly, he was placed on a BiPAP at current pressure is 14/5 cm of water. I dropped the inspiratory time down to 0.6 and the patient is feeling better. Is urinating a tidal volume of 800 with a respiratory rate of 23. He was using excessive muscle breathing and his slightly more comfortable at this point in time. He is still anxious. He is actively bronchospastic and wheezy and there is marked diminished breath sounds bilaterally. No chest pain. He is also crackling in the lung bases bilaterally. He thinks it performance could have caused this acute bronchospasm Objective - Vital Signs Vital signs: Vital Signs Temp 98.6 F 11/24/20 07:52 Pulse 124 H 11/24/20 08:14 Resp 17 11/24/20 04:00 BP 121/69 11/24/20 07:52 Pulse Ox 93 L 11/24/20 07:52 Intake & Output 11/23/20 11/24/20 11/24/20 18:59 06:59 18:59 Intake Total 240 Balance 240 Weight 65 kg Intake: Oral 240 Other: Voiding Method Toilet # Voids 1 - Exam GENERAL EXAM: Alert, very pleasant, 55-year-old white male, currently having nicotine breathing along with the use of accessory muscles of breathing and the patient is quite tachypneic and short of breath, he was immediately placed back on BiPAP support with pressures of 15/6 and FiO2 of 40%, and has since improved HEAD: Normocephalic/atraumatic. EYES: Normal reaction of pupils, equal size. Conjunctiva pink, sclera white. NOSE: Clear with pink turbinates. THROAT: No erythema or exudates. NECK: No masses, no JVD, no thyroid enlargement, no adenopathy. CHEST: No chest wall deformity. Symmetrical expansion. Some mild tenderness to palpation over sternal area with coughing, reproducible LUNGS: Equal air entry with diffuse coarse crackles, anteriorly and posteriorly, overall diminished breath sounds bilaterally CVS: Regular rate and rhythm, normal S1 and S2, no gallops, no murmurs, no rubs ABDOMEN: Soft, nontender. No hepatosplenomegaly, normal bowel sounds, no guarding or rigidity. EXTREMITIES: No clubbing, no edema, no cyanosis, 2+ pulses and upper and lower extremities. MUSCULOSKELETAL: Muscle strength and tone normal. SPINE: No scoliosis or deformity SKIN: No rashes CENTRAL NERVOUS SYSTEM: Alert and oriented -3. No focal deficits, tone is normal in all 4 extremities. PSYCHIATRIC: Alert and oriented -3. Appropriate affect. Intact judgment and insight. - Labs CBC & Chem 7: 11/24/20 08:13 11/24/20 08:13 Labs: Abnormal Lab Results - Last 24 Hours (Table) 11/23/20 11/24/20 11/24/20 Range/Units 19:47 06:32 08:13 WBC 19.2 H (3.8-10.6) k/uL Plt Count 499 H (150-450) k/uL Neutrophils # 17.1 H (1.3-7.7) k/uL Sodium (137-145) mmol/L Chloride (98-107) mmol/L Carbon Dioxide (22-30) mmol/L Creatinine (0.66-1.25) mg/dL Glucose (74-99) mg/dL POC Glucose (mg/dL) 156 H 164 H (75-99) mg/dL Alkaline Phosphatase (38-126) U/L 11/24/20 Range/Units 08:13 WBC (3.8-10.6) k/uL Plt Count (150-450) k/uL Neutrophils # (1.3-7.7) k/uL Sodium 132 L (137-145) mmol/L Chloride 83 L (98-107) mmol/L Carbon Dioxide 41 H* (22-30) mmol/L Creatinine 0.48 L (0.66-1.25) mg/dL Glucose 205 H (74-99) mg/dL POC Glucose (mg/dL) (75-99) mg/dL Alkaline Phosphatase 155 H (38-126) U/L Assessment and Plan Plan: #1. Acute on chronic hypoxic and hypercapnic respiratory failure related to acute exacerbation of COPD, and possibility of mild diastolic CHF. COVID 19 was negative acute decompensation in his exercise was noted, possibly after performance treatment, possibly an underlying ALLERGIC reaction resulting into significant bronchospasm and wheezing. This may be a paradoxic reaction. The patient will be taken off this medication. He is currently on BiPAP at a press ure of 14/5 with an FiO2 of 35%. #2. Severe COPD, baseline FEV1 of 19% of predicted, stage IV COPD, on home oxygen at 3 L that was started during his last hospitalization at the beginning of November #3. Alpha-1 anti-trypsin efficiency #4. 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 Hypertension Plan: continue Solu-Medrol 60 mg every 6, continue the DuoNeb nebulized treatments around the clock and stop the Perforomist and Pulmicort and give additional dose of Lasix. The BiPAP was noted and the patient's would have the expiratory time reduced to 0.6 seconds. He'll be given morphine at a dose of 2 mg every 4 hours for shortness of breath and breathlessness and anxiety. We'll continue rest of the treatment. We'll continue to follow. Be monitored very closely in selective units.
[2020-11-24] MEDS: IPRATROPIUM-ALBUTEROL 3 ML NEB INHALATION SCH ×4 (11:18→23:39)
[2020-11-24] MEDS: lisinopriL 20 MG TAB PO SCH (11:34)
[2020-11-24 11:35] LABS: Glucose,Whole Blood 152 mg/dL (75-99)
--- NOTE | 2020-11-24 11:44 | CDI ---
Documentation Clarification Form Date: 11/24/2020 11:20:57 AM From: Gabriela Contreras RN CCDS Admit Date: 11/23/2020 01:58:00 AM Patient Name: Mervin Daigle Visit Number: [id number] Discharge Date: ATTENTION: The Clinical Documentation Specialists (CDI) and [facility] Coding Staff appreciate your assistance in clarifying documentation. Please respond to the clarification below the line at the bottom and electronically sign. The CDI & [facility] Coding staff will review the response and follow-up if needed. Please note: Queries are made part of the Legal Health Record. If you have any questions, please contact the author of this message via ITS. Dr. Simon Gaytan, Your patient has the documented diagnosis of possibility of mild Diastolic CHF Pulmonary consult 11/23. Additional information regarding the acuity of CHF is requested. History/Risk Factors: 55-year-old male presents to the ED with worsening shortness of breath after finishing his last dose of prednisone. Medical History: HTN; Alpha 1 antitrypsin deficiency; chronic respiratory failure on home oxygen 3L and End stage COPD. Clinical Indicators: Pulmonary Consult 11/23: Chest x-ray and physical exam revealed possibility of mild fluid overload, interstitial edema, give the patient one dose of IV Lasix 40mg, will continue Solumedrol 60mg every 6,continue Pulmicort and Perforomist, DuoNeb around the clock, sputum for culture, continue azithromycin. VS/Pulse OX 11/22: B/P 162/92; HR 120; Temp 97.4 F Axillary; RR 18; SpO2 99% Non- rebreather 15 L BNP 11/23: 777 Echocardiogram Results 10/27: Borderline concentric left ventricular hypertrophy. Overall left ventricular systolic function is normal with, an EF between 60-65%. Trace mitral regurgitation. Mild tricuspid regurgitation. Mild pulmonary hypertension. Chest X Ray 11/23: Emphysema with expanded lung volumes suggesting chronic obstructive pulmonary disease. Treatment: 11/23 Lasix 40mg IV x1. 11/24 Lasix 40mg IV x 1. 11/23 Lisinopril 20mg PO Daily. In your professional opinion, can you please clarify the acuity of CHF if known? Acute Diastolic Heart Failure (preserved EF) Acute on Chronic Diastolic Heart Failure (preserved EF) Chronic Diastolic Heart Failure (preserved EF) Heart Failure ruled out. Other, please specify Unable to determine (Last Revision: October 2020) Chronic Diastolic Heart Failure (preserved EF) [facility]
--- NOTE | 2020-11-24 11:46 | XR ---
EXAMINATION TYPE: XR chest 1V portable DATE OF EXAM: 11/24/2020 COMPARISON: 11/23/2020 INDICATION: COPD shortness of breath TECHNIQUE: Single frontal view of the chest is obtained. FINDINGS: The heart size is normal. The pulmonary vasculature is normal. Scattered infiltrates are present bilaterally. Findings are similar to comparison. IMPRESSION: 1. Scattered subsegmental infiltrates present in bilateral lung miles can be compatible with atypica l pneumonia.
--- NOTE | 2020-11-24 11:56 | P.CRDCN ---
History of Present Illness Consult date: 11/24/20 History of present illness: HISTORY OF PRESENT ILLNESS: This is a 55-year-old male with a past medical history significant for hypertension, asthma, COPD, and former nicotine dependence. 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 We have been asked to see the patient in consultation for new onset atrial fibrillation. Patient examined at the bedside. Patient initially presented to the hospital secondary to shortness of breath. Patient has been diagnosed with COPD exacerbation. He is currently on a BiPAP at the time of examination. Yesterday, patient went into atrial fibrillation. Patient was started on oral Cardizem. Patient's heart rate remains mildly uncontrolled this morning with a heart rate in the 110s. He denies chest pain or pressure. He reports significant shortness of breath at the time of examination. EKG reveals atrial fibrillation. Heart rate 107. T-wave inversions in V5 through V6 Chest xray emphysema with expanded lung volumes suggesting chronic obstructive pulmonary disease. No airspace consolidation. No pleural effusion. No cardiomegaly. Laboratory data: WBC 19.2. Hemoglobin 13.4. Platelet count 499. Sodium 132. Potassium 5.1. BUN 19. Creatinine 0.48. BNP 777. Current home cardiac medications include lisinopril 20 mg daily Most recent echocardiogram obtained in October 2020 reveals ejection fraction 60-65%, trace mitral regurgitation, mild tricuspid regurgitation, and mild pulmonary hypertension REVIEW OF SYSTEMS: At the time of my exam: CONSTITUTIONAL: Denies fever or chills. HEENT: Denies blurred vision, vision changes, or eye pain. Denies hemoptysis CARDIOVASCULAR: Denies chest pain. Denies orthopnea. Denies PND. Denies palpitations RESPIRATORY: Reports shortness of breath. GASTROINTESTINAL: Denies abdominal pain. Denies nausea or vomiting. HEMATOLOGIC: Denies bleeding disorders. GENITOURINARY: Denies any blood in urine. SKIN: Denies pruitis. Denies rash. PHYSICAL EXAM: VITAL SIGNS: Reviewed. GENERAL: Well-developed in no mild respiratory distress. HEENT: Head is normocephalic. Pupils are equal, round. Sclerae anicteric. Mucous membranes of the mouth are moist. Neck supple. No JVD or thyromegaly LUNGS: Respirations even. Mildly labored with use of accessory muscles. Lungs with diminished breath sounds bilaterally. No rales noted. HEART: Tachycardic. Irregular rate and rhythm. S1 and S2 heard. ABDOMEN: Soft. Nondistended. Nontender. EXTREMITIES: Normal range of motion. No clubbing or cyanosis. Peripheral pulses intact. No lower extremity edema NEUROLOGIC: Awake and alert. Oriented x 3. ASSESSMENT: Acute COPD exacerbation Acute on chronic hypoxic and hypercapnic respiratory failure, on home O2 New onset atrial fibrillation with mildly rapid ventricular rates Hypertension Former nicotine dependence History of marijuana use PLAN: No need to repeat echo as this was performed last month Pulmonary following for COPD Patient appears euvolemic with no signs of congestive heart failure Obtain TSH Obtain lipid panel Increase Cardizem to 60mg TID Begin Eliquis 5mg BID. Discontinue Lovenox Further recommendations pending patient course Nurse practitioner note has been reviewed by physician. Signing provider agrees with the documented findings, assessment, and plan of care. Past Medical History Past Medical History: Asthma, COPD, Hypertension Additional Past Medical History / Comment(s): Bronchitis, Alpha 1 antitrypsin deficiency, pancreatitis. History of Any Multi-Drug Resistant Organisms: None Reported Past Surgical History: Tonsillectomy Additional Past Surgical History / Comment(s): Colonoscopy Past Anesthesia/Blood Transfusion Reactions: No Reported Reaction Past Psychological History: No Psychological Hx Reported Smoking Status: Former smoker - Past Family History Mother Family Medical History: Hypertension Additional Family Medical History / Comment(s): Hip/knee replacements. Mother in her sleep in her 70s. Father Family Medical History: CVA/TIA Additional Family Medical History / Comment(s): Father is . Medications and Allergies Home Medications Medication Instructions Recorded Confirmed Type Albuterol Nebulized [Ventolin 2.5 mg INHALATION RT-TID PRN 02/18/20 11/23/20 History Nebulized] Albuterol Sulfate [Ventolin HFA] 2 puff INHALATION RT-Q4H PRN 02/18/20 11/23/20 History Fluticasone/Umeclidin/Vilanter 1 puff INHALATION RT-DAILY 02/18/20 11/23/20 History [Eren Ellipta 100-62.5-25] lisinopriL [Zestril] 20 mg PO DAILY@1400 02/18/20 11/23/20 History Ascorbic Acid [Vitamin C] 500 mg PO DAILY 10/27/20 11/23/20 History Multivitamins, Thera [Multivitamin 1 tab PO DAILY 10/27/20 11/23/20 History (formulary)] Famotidine [Pepcid] 20 mg PO BID #60 tablet 11/01/20 11/23/20 Rx Ipratropium-Albuterol Nebulize 3 ml INHALATION RT-QID #100 ml 11/01/20 11/23/20 Rx [Duoneb 0.5 mg-3 mg/3 ml Soln] diphenhydrAMINE [Benadryl] 25 mg PO HS PRN #7 capsule 11/01/20 11/23/20 Rx Formoterol Fumarate [Perforomist] 20 mcg INHALATION RT-BID 11/23/20 11/23/20 History Apixaban [Eliquis] 5 mg PO BID #60 tab 11/24/20 Rx Allergies Allergy/AdvReac Type Severity Reaction Status Date / Time ampicillin Allergy Unknown Verified 11/23/20 06:51 Childhood Penicillins Allergy Unknown Verified 11/23/20 06:51 Childhood formoterol [From Perforomist] AdvReac Dyspnea Verified 11/24/20 08:01 Physical Exam Vitals: Vital Signs Temp Pulse Pulse Resp BP BP Pulse Ox 11/24/20 08:14 124 H 11/24/20 08:00 17 11/24/20 07:52 98.6 F 98 121/69 93 L 11/24/20 07:38 92 11/24/20 04:00 94 17 101/56 96 11/24/20 00:00 98.4 F 99 18 120/78 97 11/23/20 20:00 97.9 F 102 H 19 125/77 93 L 11/23/20 18:30 97.9 F 109 H 136/75 92 L 11/23/20 17:19 92 L 11/23/20 16:15 99.2 F 93 18 129/82 97 11/23/20 15:00 98.9 F 95 22 129/92 98 11/23/20 11:30 97.9 F 96 22 120/81 96 Intake and Output 11/23/20 11/24/20 11/24/20 22:59 06:59 14:59 Intake Total 240 Balance 240 Intake: Oral 240 Other: Voiding Method Toilet # Voids 3 1 Weight 65 kg Results 11/24/20 08:13 11/24/20 08:13 Cardiac Enzymes 11/24/20 Range/Units 08:13 AST 30 (17-59) U/L Lipids 11/24/20 Range/Units 08:13 Triglycerides 134 (<150) mg/dL Cholesterol 246 H (<200) mg/dL HDL Cholesterol 62 H (40-60) mg/dL CBC 11/24/20 Range/Units 08:13 WBC 19.2 H (3.8-10.6) k/uL RBC 4.38 (4.30-5.90) m/uL Hgb 13.4 (13.0-17.5) gm/dL Hct 41.1 (39.0-53.0) % Plt Count 499 H (150-450) k/uL Comprehensive Metabolic Panel 11/24/20 Range/Units 08:13 Sodium 132 L (137-145) mmol/L Potassium 5.1 (3.5-5.1) mmol/L Chloride 83 L (98-107) mmol/L Carbon Dioxide 41 H* (22-30) mmol/L BUN 19 (9-20) mg/dL Creatinine 0.48 L (0.66-1.25) mg/dL Glucose 205 H (74-99) mg/dL Calcium 9.3 (8.4-10.2) mg/dL AST 30 (17-59) U/L ALT 28 (4-49) U/L Alkaline Phosphatase 155 H (38-126) U/L Total Protein 7.0 (6.3-8.2) g/dL Albumin 3.7 (3.5-5.0) g/dL Current Medications Generic Name Dose Route Start Last Admin Trade Name Freq PRN Reason Stop Dose Admin Albuterol/Ipratropium 3 ml 11/24/20 12:00 11/24/20 11:18 Ipratropium-Albuterol 3 Ml Neb INHALATION 3 ml RT-Q4H CLAUDE Administration Albuterol/Ipratropium 3 ml 11/24/20 09:53 Ipratropium-Albuterol 3 Ml Neb INHALATION RT-Q2H PRN Shortness Of Breath Or Wheezing Ascorbic Acid 500 mg 11/24/20 09:00 11/24/20 08:14 Ascorbic Acid 500 Mg Tab PO 500 mg DAILY CLAUDE Administration Diltiazem HCl 60 mg 11/24/20 09:15 11/24/20 09:12 Diltiazem Oral 60 Mg Tab PO 60 mg TID CLAUDE Administration Enoxaparin Sodium 40 mg 11/23/20 09:00 11/24/20 08:14 Enoxaparin 40 Mg/0.4 Ml Syringe SQ 40 mg DAILY CLAUDE Administration Famotidine 20 mg 11/23/20 10:30 11/24/20 08:14 Famotidine 20 Mg Tab PO 20 mg BID CLAUDE Administration Sodium Chloride 1,000 mls @ 100 mls/hr 11/23/20 02:00 11/24/20 07:47 Saline 0.9% IV Not Given .Q10H CLAUDE Azithromycin 500 mg/ Sodium 250 mls @ 250 mls/hr 11/24/20 03:00 11/24/20 04:29 Chloride IVPB 250 mls/hr DAILY@0300 CLAUDE Administration Insulin Aspart 0 unit 11/23/20 21:00 11/24/20 06:44 Insulin Aspart (Novolog) 100 Unit/Ml Vial SQ 3 unit ACHS CLAUDE Administration Protocol Lisinopril 20 mg 11/23/20 14:00 11/23/20 16:58 Lisinopril 20 Mg Tab PO 20 mg DAILY@1400 CLAUDE Administration Methylprednisolone Sodium Succinate 60 mg 11/23/20 06:00 11/24/20 06:44 Methylprednisolone Sod Succi 125 Mg/2 Ml Vial IV 60 mg Q6HR CLAUDE Administration Morphine Sulfate 2 mg 11/24/20 09:54 11/24/20 09:58 Morphine Sulfate 2 Mg/Ml Syringe IVP 2 mg Q4H PRN Administration Pain/Discomfort Multivitamins 1 each 11/24/20 09:00 11/24/20 08:14 Multivitamins, Thera 1 Each Tab PO 1 each DAILY CLAUDE Administration Pantoprazole Sodium 40 mg 11/24/20 07:30 11/24/20 06:44 Pantoprazole 40 Mg Tablet PO 40 mg AC-[id number] CLAUDE Administration Intake and Output 11/23/20 11/24/20 11/24/20 22:59 06:59 14:59 Intake Total 240 Balance 240 Intake: Oral 240 Other: Voiding Method Toilet # Voids 3 1 Weight 65 kg 11/24/20 08:13 11/24/20 08:13
[2020-11-24] MEDS: APIXABAN 5 MG TAB PO SCH ×2 (13:45→20:46)
[2020-11-24 16:34] LABS: Glucose,Whole Blood 141 mg/dL (75-99)
[2020-11-24 20:08] LABS: Glucose,Whole Blood 201 mg/dL (75-99)
[2020-11-24] MEDS: ATORVASTATIN 40 MG TAB PO SCH (20:46)
--- NOTE | 2020-11-24 23:00 | P.PN ---
Progress Note - Text Progress Note Date: 11/24/20 Chief Complaint: Shortness of breath History of presenting complaint: This is a pleasant 55-year-old patient of Dr. Irizarry. 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 Presley history of alpha-1 antitrypsin deficiency . Patient was admitted to the hospital in October, with end-stage severe COPD exacerbation. Patient was stable when he was discharged. Does have 3 L of oxygen at home. Patient was also not tapering dose of steroids. About a week ago he finished his last dose of prednisone. Symptoms started to get gradually worse. Becoming more and more short of breath. Pulse ox 97% started going down to 192%. Has been having wheezing. Patient always has some green sputum. Appetite is fair No weight loss. No fever no chills. 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 Admitted with acute severe end-stage COPD exacerbation. Put on bronchodilators IV steroids and his steroids. Today-had his breakfast. Short of breath. At rest on BiPAP. Tired Review of systems: Was done for constitutional, cardiovascular, GI, pulmonary. relevant finding as above Active Medications Albuterol/Ipratropium (Ipratropium-Albuterol 3 Ml Neb) 3 ml INHALATION RT-Q4H [facility] Last Admin: 11/24/20 20:02 Dose: 3 ml Documented by: Albuterol/Ipratropium (Ipratropium-Albuterol 3 Ml Neb) 3 ml INHALATION RT-Q2H PRN PRN Reason: Shortness Of Breath Or Wheezing Apixaban (Apixaban 5 Mg Tab) 5 mg PO BID [facility] Last Admin: 11/24/20 20:46 Dose: 5 mg Documented by: Ascorbic Acid (Ascorbic Acid 500 Mg Tab) 500 mg PO DAILY [facility] Last Admin: 11/24/20 08:14 Dose: 500 mg Documented by: Atorvastatin Calcium (Atorvastatin 40 Mg Tab) 40 mg PO HS [facility] Last Admin: 11/24/20 20:46 Dose: 40 mg Documented by: Diltiazem HCl (Diltiazem Oral 60 Mg Tab) 60 mg PO TID [facility] Last Admin: 11/24/20 20:47 Dose: 60 mg Documented by: Famotidine (Famotidine 20 Mg Tab) 20 mg PO BID [facility] Last Admin: 11/24/20 20:46 Dose: 20 mg Documented by: Sodium Chloride (Saline 0.9%) 1,000 mls @ 100 mls/hr IV .Q10H [facility] Last Admin: 11/24/20 16:39 Dose: Not Given Documented by: Azithromycin 500 mg/ Sodium (Chloride) 250 mls @ 250 mls/hr IVPB DAILY@0300 [facility] Last Admin: 11/24/20 04:29 Dose: 250 mls/hr Documented by: Insulin Aspart (Insulin Aspart (Novolog) 100 Unit/Ml Vial) 0 unit SQ ACHS [facility]; Protocol Last Admin: 11/24/20 20:46 Dose: 6 unit Documented by: Lisinopril (Lisinopril 20 Mg Tab) 20 mg PO DAILY@1400 [facility] Last Admin: 11/24/20 11:34 Dose: 20 mg Documented by: Methylprednisolone Sodium Succinate (Methylprednisolone Sod Succi 125 Mg/2 Ml Vial) 60 mg IV Q6HR [facility] Last Admin: 11/24/20 16:43 Dose: 60 mg Documented by: Morphine Sulfate (Morphine Sulfate 2 Mg/Ml Syringe) 2 mg IVP Q4H PRN PRN Reason: Pain/Discomfort Last Admin: 11/24/20 09:58 Dose: 2 mg Documented by: Multivitamins (Multivitamins, Thera 1 Each Tab) 1 each PO DAILY [facility] Last Admin: 11/24/20 08:14 Dose: 1 each Documented by: Pantoprazole Sodium (Pantoprazole 40 Mg Tablet) 40 mg PO AC-BRKFST [facility] Last Admin: 11/24/20 06:44 Dose: 40 mg Documented by: Past medical history to include: COPD, hypertension, alpha-1 antitrypsin deficiency, pancreatitis Social history: Patient started smoking 1983 and stopped in 2019. He drink a bit heavy alcohol to the age of 27. . 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 EYES: Pupils equal. Conjunctiva normal. HEENT: External appearance of nose and ears normal, oral cavity grossly normal. NECK: JVD not raised; masses not palpable. HEART: First and second heart sounds are normal; no edema. LUNGS:[ Respiratory rate increased, decreased breath sounds prolonged expiration and wheezing, accessory muscles are working, not able to speak in full sentences. ABDOMEN: Soft, nontender, liver spleen not palpable, no masses palpable. PSYCH: [Alert and oriented x3; mood and affect slightly anxious. INVESTIGATIONS, reviewed in the clinical context: November 24: WBC 19.2 hemoglobin 13.4 platelets 499 potassium 5.1 bicarbonate 41 creatinine 0.48 WBC 15.7 hemoglobin 13.2 platelets 383 Potassium 5.1 bun 19 creatinine 0.49 CRP 144 Pro-calcitonin 0.07 Coronavirus [PCR]-not detected proBNP 777 ABG pH 7.23, pCO2 104, the O2 64 EKG tracing personally reviewed by me-sinus tachycardia nonspecific T-wave changes Chest x-ray film personally reviewed by me-hyperinflation, some chronic changes possibly Assessment and plan: -Acute severe end-stage COPD exacerbation in an ex-smoker. on bronchodilators, IV steroids and inhaled steroids.-Slow to respond -Acute hypoxic hypercapnic respiratory failure secondary to COPD exacerbation. On BiPAP-not improving -Chronic hypoxic respiratory failure on 3 his oxygen at home -Alpha-1 antitrypsin deficiency -Essential hypertension, continue with lisinopril -Chronic insomnia continue with melatonin -DVT prophylaxison Lovenox -Mild Hyponatremia likely from excessive water intake Discussed with patient. Follow with pulmonary
[2020-11-25] MEDS: IPRATROPIUM-ALBUTEROL 3 ML NEB INHALATION SCH (03:29)
[2020-11-25] MEDS: AZITHROMYCIN 500 MG in SODIUM CHLORIDE 0.9% 250 ML IVPB SCH (03:53)
[2020-11-25] MEDS: SODIUM CHLORIDE 0.9% 1,000 ML IV SCH ×2 (05:54→12:51)
[2020-11-25 05:57] LABS: Glucose,Whole Blood 153 mg/dL (75-99)
[2020-11-25] MEDS: PANTOPRAZOLE 40 MG TABLET PO SCH (06:31)
[2020-11-25] MEDS: INSULIN ASPART (NovoLOG) 100 UNIT/ML VIAL SQ SCH ×4 (06:31→21:10)
[2020-11-25] MEDS: methylPREDNISolone SOD SUCCI 125 MG/2 ML VIAL IV SCH ×4 (06:32→22:21)
--- NOTE | 2020-11-25 07:23 | XR ---
EXAMINATION TYPE: XR chest 1V portable DATE OF EXAM: 11/25/2020 HISTORY: Shortness of breath. COMPARISON: 11/24/2020 TECHNIQUE: Single view of the chest is submitted. FINDINGS: Demonstrated are scattered senescent parenchymal change. Vague scattered infiltrates persist. Hyperinflation compatible with COPD. The heart is stable. Hilar and mediastinal structures are within normal limits. Degenerative changes are seen of the dorsal spine. IMPRESSION: 1. Vague scattered infiltrates persist.
[2020-11-25] MEDS ORDERED: ALBUTEROL NEBULIZED 2.5 MG/3 ML INHALATION PRN (07:48)
[2020-11-25] MEDS: ALBUTEROL NEBULIZED 2.5 MG/3 ML INHALATION SCH ×4 (07:54→20:09)
[2020-11-25] MEDS: ASCORBIC ACID 500 MG TAB PO SCH (09:16)
[2020-11-25] MEDS: APIXABAN 5 MG TAB PO SCH ×2 (09:16→21:13)
[2020-11-25] MEDS: MULTIVITAMINS, THERA 1 EACH TAB PO SCH (09:17)
[2020-11-25] MEDS: FAMOTIDINE 20 MG TAB PO SCH ×2 (09:17→21:13)
[2020-11-25] MEDS: DILTIAZEM ORAL 60 MG TAB PO SCH (09:17)
[2020-11-25 10:30] LABS: Basophils % (A) 0 %; Eosinophils % (A) 0 %; HCT 38.8 % (39.0-53.0); HGB 12.2 gm/dL (13.0-17.5); Lymphocytes # (A) 0.7 k/uL (1.0-4.8); Lymphocytes % (A) 6 %; MCH 29.3 pg (25.0-35.0); MCHC 31.4 g/dL (31.0-37.0); MCV 93.1 fL (80.0-100.0); Mean Platelet Volume 6.9; Monocytes # (A) 0.6 k/uL (0-1.0); Monocytes % (A) 4 %; Neutrophils # (A) 12.1 k/uL (1.3-7.7); Neutrophils % (A) 90 %; Platelet Count 437 k/uL (150-450); RBC 4.16 m/uL (4.30-5.90); RDW 12.5 % (11.5-15.5); WBC 13.5 k/uL (3.8-10.6)
[2020-11-25 11:00] LABS: African American GFR (CKD) >90 (>60 ml/min/1.73 sqM); Blood Urea Nitrogen 25 mg/dL (9-20); Calcium 8.8 mg/dL (8.4-10.2); Chloride 82 mmol/L (98-107); Glucose 171 mg/dL (74-99); Non-African American GFR(CKD) >90 (>60 ml/min/1.73 sqM); Potassium 4.4 mmol/L (3.5-5.1); Sodium 129 mmol/L (137-145)
[2020-11-25] MEDS ORDERED: FUROSEMIDE 10 MG/ML 4 ML VIAL IV STA (11:10)
--- NOTE | 2020-11-25 11:10 | P.PN ---
Subjective Progress Note Date: 11/25/20 55-year-old white male patient with history of severe COPD/emphysema, alpha-1 a ntitrypsin deficiency,, with baseline FEV1 of 19% of predicted and severe diffusion abnormality of 40% of predicted. Patient was recently hospitalized 10/27/2020 through 11/01/2020 for acute exacerbation of severe COPD. Up until his recent hospitalization patient was not requiring home oxygen however he was sent home on home oxygen after his last admission on 3 L. In addition patient was to complete 16 day course of prednisone taper, he was sent home on nebulized DuoNeb, Perforomist, he had already been taken Trelegy Ellipta 37110.525 one puff inhalation daily. Patient is an ex-smoker, however has not smoked 1 year, prior to that smoked for 36 years pack a day, in addition had smoked marijuana. His other medical history hypertension, his blood pressure medication had to be by his primary care physician Dr. Irizarry. Patient's blood pressure was running low, and his lisinopril dose was dropped from 20 mg to 5 mg daily. On 11/22/2020 patient was brought to the emergency department per EMS for severe respiratory distress, worsening hypoxia and dyspnea. Patient's is at [facility], and providing us a history. She stated that about a week ago patient had seen Dr. Irizarry in follow-up, and he had just completed his prednisone taper and after that his symptoms of worsening dyspnea and hypoxia seemed to worsen. He was increasingly more short of breath, off, he is bringing up some greenish colored sputum. He is complaining of some chest wall soreness from coughing in the anterior sternal bone, which is reproducible with palpation. He tested negative for COVID 19. His chest x-ray showed emphysema and standard lung volumes, no airspace consolidation, but showing some interstitial prominence, he was in significant respiratory distress on arrival he was placed on BiPAP support with pressures of 15 and 6 and FiO2 of 40%, his blood gas showed pO2 of 64, pCO2 of 104, and pH of 7.23, consistent with acute on chronic hypercapnic and hypoxic respiratory failure. She was started on IV steroids, empiric antibiotics, breathing treatments, he is feeling much better today, he is awaiting a bed on selective care in the emergency department, he is currently off BiPAP support and on 5 L of oxygen his pulse ox of 96%, afebrile, eating easier today, however still has some coarse diffuse crackles on physical exam On 11/24/2020 the patient is being seen for a follow-up. As mentioned earlier, he is a case of severe COPD. He was in slight for an acute COPD exacerbation. Earlier this morning, after receiving a Perforomist nebulized treatment, the patient became acutely short of breath bronchospastic and wheezy and is quite anxious. Accordingly, he was placed on a BiPAP at current pressure is 14/5 cm of water. I dropped the inspiratory time down to 0.6 and the patient is feeling better. Is urinating a tidal volume of 800 with a respiratory rate of 23. He was using excessive muscle breathing and his slightly more comfortable at this point in time. He is still anxious. He is actively bronchospastic and wheezy and there is marked diminished breath sounds bilaterally. No chest pain. He is also crackling in the lung bases bilaterally. He thinks it performance could have caused this acute bronchospasm On 11/25/2020, the patient is still having reactions even to DuoNeb and based on that I switched him on his albuterol nebulized treatments around the clock. He remains on IV Solu-Medrol. He remains on BiPAP. I further switched him to a AVAPS mode with a target tidal volume of 600 and the patient is feeling better with that. He was given a dose of Lasix and producing adequate amount of urine output. Otherwise, he is doing well. No specific complaints. No chest pain. no Altered mentation. He is a negative fluid balance since yesterday. Blood work shows no major abnormalities. Objective - Vital Signs Vital signs: Vital Signs Temp 98.4 F 11/25/20 03:55 Pulse 84 11/25/20 08:06 Resp 19 11/25/20 03:55 BP 102/59 11/25/20 03:55 Pulse Ox 94 L 11/25/20 03:55 Intake & Output 11/24/20 11/25/20 11/25/20 18:59 06:59 18:59 Intake Total 480 240 Output Total 700 Balance 480 -700 240 Weight 65.1 kg Intake: Oral 480 240 Output: Urine 700 Other: # Voids 2 2 - Exam GENERAL EXAM: Alert, very pleasant, 55-year-old white male, currently having nicotine breathing along with the use of accessory muscles of breathing and the patient is quite tachypneic and short of breath, he was immediately placed back on BiPAP support with pressures of 15/6 and FiO2 of 40%, and has since improved subsequently got switched to a AVAPS mode HEAD: Normocephalic/atraumatic. EYES: Normal reaction of pupils, equal size. Conjunctiva pink, sclera white. NOSE: Clear with pink turbinates. THROAT: No erythema or exudates. NECK: No masses, no JVD, no thyroid enlargement, no adenopathy. CHEST: No chest wall deformity. Symmetrical expansion. Some mild tenderness to palpation over sternal area with coughing, reproducible LUNGS: Equal air entry with diffuse coarse crackles, anteriorly and posteriorly, overall diminished breath sounds bilaterally CVS: Regular rate and rhythm, normal S1 and S2, no gallops, no murmurs, no rubs ABDOMEN: Soft, nontender. No hepatosplenomegaly, normal bowel sounds, no guarding or rigidity. EXTREMITIES: No clubbing, no edema, no cyanosis, 2+ pulses and upper and lower extremities. MUSCULOSKELETAL: Muscle strength and tone normal. SPINE: No scoliosis or deformity SKIN: No rashes CENTRAL NERVOUS SYSTEM: Alert and oriented -3. No focal deficits, tone is normal in all 4 extremities. PSYCHIATRIC: Alert and oriented -3. Appropriate affect. Intact judgment and insight. - Labs CBC & Chem 7: 11/25/20 09:19 11/24/20 08:13 Labs: Abnormal Lab Results - Last 24 Hours (Table) 11/24/20 11/24/20 11/24/20 Range/Units 11:34 16:32 20:07 WBC (3.8-10.6) k/uL RBC (4.30-5.90) m/uL Hgb (13.0-17.5) gm/dL Hct (39.0-53.0) % Neutrophils # (1.3-7.7) k/uL Lymphocytes # (1.0-4.8) k/uL POC Glucose (mg/dL) 152 H 141 H 201 H (75-99) mg/dL 11/25/20 11/25/20 Range/Units 05:56 09:19 WBC 13.5 H (3.8-10.6) k/uL RBC 4.16 L (4.30-5.90) m/uL Hgb 12.2 L (13.0-17.5) gm/dL Hct 38.8 L (39.0-53.0) % Neutrophils # 12.1 H (1.3-7.7) k/uL Lymphocytes # 0.7 L (1.0-4.8) k/uL POC Glucose (mg/dL) 153 H (75-99) mg/dL Microbiology - Last 24 Hours (Table) 11/24/20 11:30 Gram Stain - Preliminary Sputum Sputum Culture - Preliminary Assessment and Plan Plan: #1. Acute on chronic hypoxic and hypercapnic respiratory failure related to acute exacerbation of COPD, and possibility of mild diastolic CHF. COVID 19 was negative acute decompensation in his exercise was noted, possibly after performance treatment, possibly an underlying ALLERGIC reaction resulting into significant bronchospasm and wheezing. This may be a paradoxic reaction. She also had a paradoxic reaction to DuoNeb. He was switched only to albuterol. He is on IV Solu-Medrol. He is currently on BiPAP at a pressure of 14/5 with an FiO2 of 35%. She switched AVAPS mode of ventilation and he felt much better and I would believe that this is something that he can use on outpatient basis to reduce hospitalizations as same time given better symptom control. #2. Severe COPD, baseline FEV1 of 19% of predicted, stage IV COPD, on home oxygen at 3 L that was started during his last hospitalization at the beginning of November #3. Alpha-1 anti-trypsin efficiency #4. History of smoking, [id number], in remission for 1 year, in addition to marijuana use, also in remission #5. Hypertension Plan: continue Solu-Medrol 60 mg every 6, continue albuterol nebulized treatments only. Continue Zithromax. Give additional dose of Lasix 20 mg IV. Psoas this patient to a AVAPS mode. Arrange for home ventilator at a time of discharge.
[2020-11-25 11:45] LABS: Glucose,Whole Blood 212 mg/dL (75-99)
[2020-11-25 11:49] LABS: Anion Gap 3 mmol/L; Carbon Dioxide 44 mmol/L (22-30)
--- NOTE | 2020-11-25 12:09 | P.PN ---
Subjective This is a pleasant 55-year-old patient of Dr. Irizarry. 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 Presley history of alpha-1 antitrypsin deficiency . Patient was admitted to the hospital in October, with end-stage severe COPD exacerbation. Patient was stable when he was discharged. Does have 3 L of oxygen at home. Patient was also not tapering dose of steroids. About a week ago he finished his last dose of prednisone. Symptoms started to get gradually worse. Becoming more and more short of breath. Pulse ox 97% started going down to 192%. Has been having wheezing. Patient always has some green sputum. Appetite is fair No weight loss. No fever no chills. 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 Admitted with acute severe end-stage COPD exacerbation. Put on bronchodilators IV steroids and his steroids. Today-had his breakfast. Short of breath. At rest on BiPAP. Tired Subjective: 11/25/2020 This is a pleasant 55 years old male with multiple medical problems presents with acute COPD exacerbation and acute hypoxic hypercapnic respiratory failure with history of alpha-1 antitrypsin deficiency. Also patient found to have new onset A. fib with RVR. He has chronic leukocytosis in the range of 13-14 K, slightly worse currently but also is on steroids He uses BiPAP machine last night. 2 days ago he was started on performing test which caused his dyspnea to get worse and ALLERGIC reaction is suspected and patient was informed not to use Perforomist in the future and he verbalized understanding. Also he needed more BiPAP yesterday and today. He is using oxygen at home about 3-4 L/m. But he is not using BiPAP at home On examination he still has decreased air entry on both sides. He is saturating 94% on 4 L oxygen via nasal cannula. Which is stable from yesterday. Labs showing improved leukocytosis of 13.5 K. Sodium slightly trending down to 129. Resolved. He is unremarkable. He is Currently covered with Eliquis 5 mg and Cardizem dose increased to 60 mg 3 times a day, also is on Zithromax, salmeterol 60 mg and normal saline at 100 mL per hour. Which is stopped and placed on Lasix 40 mg 1. Review of systems CONSTITUTIONAL: No fever, no malaise, no fatigue. HEENT: No recent visual problems or hearing problems. Denied any sore throat. CARDIOVASCULAR: No orthopnea, PND, no palpitations, no syncope. PULMONARY: No chest wall tenderness Gastrointestinal: no nausea, no vomiting, no abdominal pain. Normoactive bowel sounds. NEUROLOGICAL: No headaches, no weakness, no numbness. Active Medications Generic Name Dose Route Start Last Admin Trade Name Freq PRN Reason Stop Dose Admin Albuterol Sulfate 2.5 mg 11/25/20 08:00 11/25/20 11:14 Albuterol Nebulized 2.5 Mg/3 Ml INHALATION 2.5 mg RT-Q4H CLAUDE Administration Albuterol Sulfate 2.5 mg 11/25/20 07:48 Albuterol Nebulized 2.5 Mg/3 Ml INHALATION RT-Q2H PRN Shortness Of Breath Or Wheezing Apixaban 5 mg 11/24/20 11:45 11/25/20 09:16 Apixaban 5 Mg Tab PO 5 mg BID CLAUDE Administration Ascorbic Acid 500 mg 11/24/20 09:00 11/25/20 09:16 Ascorbic Acid 500 Mg Tab PO 500 mg DAILY CLAUDE Administration Atorvastatin Calcium 40 mg 11/24/20 21:00 11/24/20 20:46 Atorvastatin 40 Mg Tab PO 40 mg HS CLAUDE Administration Diltiazem HCl 60 mg 11/24/20 09:15 11/25/20 09:17 Diltiazem Oral 60 Mg Tab PO 60 mg TID CLAUDE Administration Famotidine 20 mg 11/23/20 10:30 11/25/20 09:17 Famotidine 20 Mg Tab PO 20 mg BID CLAUDE Administration Sodium Chloride 1,000 mls @ 20 mls/hr 11/23/20 02:00 11/25/20 05:54 Saline 0.9% IV Not Given .Q24H CLAUDE Azithromycin 500 mg/ Sodium 250 mls @ 250 mls/hr 11/24/20 03:00 11/25/20 03: 53 Chloride IVPB 250 mls/hr DAILY@0300 CLADUE Administration Insulin Aspart 0 unit 11/23/20 21:00 11/25/20 06:31 Insulin Aspart (Novolog) 100 Unit/Ml Vial SQ 2 unit ACHS CLAUDE Administration Protocol Lisinopril 20 mg 11/23/20 14:00 11/24/20 11:34 Lisinopril 20 Mg Tab PO 20 mg DAILY@1400 CLAUDE Administration Methylprednisolone Sodium Succinate 60 mg 11/23/20 06:00 11/25/20 06:32 Methylprednisolone Sod Succi 125 Mg/2 Ml Vial IV 60 mg Q6HR CLAUDE Administration Morphine Sulfate 2 mg 11/24/20 09:54 11/24/20 09:58 Morphine Sulfate 2 Mg/Ml Syringe IVP 2 mg Q4H PRN Administration Pain/Discomfort Multivitamins 1 each 11/24/20 09:00 11/25/20 09:17 Multivitamins, Thera 1 Each Tab PO 1 each DAILY CLAUDE Administration Pantoprazole Sodium 40 mg 11/24/20 07:30 11/25/20 06:31 Pantoprazole 40 Mg Tablet PO 40 mg AC-[id number] CLAUDE Administration Objective - Vital Signs Vital signs: Vital Signs Temp 98.4 F 11/25/20 03:55 Pulse 72 11/25/20 11:26 Resp 19 11/25/20 03:55 BP 102/59 11/25/20 03:55 Pulse Ox 94 L 11/25/20 03:55 Intake & Output 11/24/20 11/25/20 11/25/20 18:59 06:59 18:59 Intake Total 480 240 Output Total 700 Balance 480 -700 240 Weight 65.1 kg Intake: Oral 480 240 Output: Urine 700 Other: # Voids 2 2 - Exam GENERAL: The patient is alert and oriented x3, not in any acute distress. Well developed, well nourished. HEENT: Pupils are round and equally reacting to light. EOMI. No scleral icterus. No conjunctival pallor. Normocephalic, atraumatic. No pharyngeal erythema. No thyromegaly. CARDIOVASCULAR: S1 and S2 present. No murmurs, rubs, or gallops. -PULMONARY: Chest is clear to auscultation, no wheezing or crackles. Decreased air entry on both sides ABDOMEN: Soft, nontender, nondistended, normoactive bowel sounds. No palpable organomegaly. MUSCULOSKELETAL: No joint swelling or deformity. EXTREMITIES: No cyanosis, clubbing, or pedal edema. NEUROLOGICAL: Gross neurological examination did not reveal any focal deficits. SKIN: No rashes. no petechiae. - Labs CBC & Chem 7: 11/25/20 09:19 11/25/20 09:19 Labs: Abnormal Lab Results - Last 24 Hours (Table) 11/24/20 11/24/20 11/25/20 Range/Units 16:32 20:07 05:56 WBC (3.8-10.6) k/uL RBC (4.30-5.90) m/uL Hgb (13.0-17.5) gm/dL Hct (39.0-53.0) % Neutrophils # (1.3-7.7) k/uL Lymphocytes # (1.0-4.8) k/uL Sodium (137-145) mmol/L Chloride (98-107) mmol/L Carbon Dioxide (22-30) mmol/L BUN (9-20) mg/dL Creatinine (0.66-1.25) mg/dL Glucose (74-99) mg/dL POC Glucose (mg/dL) 141 H 201 H 153 H (75-99) mg/dL 11/25/20 11/25/20 11/25/20 Range/Units 09:19 09:19 11:44 WBC 13.5 H (3.8-10.6) k/uL RBC 4.16 L (4.30-5.90) m/uL Hgb 12.2 L (13.0-17.5) gm/dL Hct 38.8 L (39.0-53.0) % Neutrophils # 12.1 H (1.3-7.7) k/uL Lymphocytes # 0.7 L (1.0-4.8) k/uL Sodium 129 L (137-145) mmol/L Chloride 82 L (98-107) mmol/L Carbon Dioxide 44 H* (22-30) mmol/L BUN 25 H (9-20) mg/dL Creatinine 0.60 L (0.66-1.25) mg/dL Glucose 171 H (74-99) mg/dL POC Glucose (mg/dL) 212 H (75-99) mg/dL Microbiology - Last 24 Hours (Table) 11/24/20 11:30 Gram Stain - Preliminary Sputum Sputum Culture - Preliminary Assessment and Plan Assessment: Assessment and plan: -Acute severe end-stage COPD exacerbation in an ex-smoker. on bronchodilators, IV steroids and inhaled steroids.-Slow to respond -Acute hypoxic hypercapnic respiratory failure secondary to COPD exacerbation. On BiPAP- improving -Chronic hypoxic respiratory failure on 3 his oxygen at home -Alpha-1 antitrypsin deficiency -Essential hypertension, continue with lisinopril -Chronic insomnia continue with melatonin -Mild Hyponatremia with hypervolemia -DVT prophylaxison Lovenox GI prophylaxis: Pepcid Prognosis is guarded
[2020-11-25] MEDS: lisinopriL 20 MG TAB PO SCH (12:57)
--- NOTE | 2020-11-25 13:53 | P.PN ---
Subjective Progress Note Date: 11/25/20 HISTORY OF PRESENT ILLNESS: 11/24/2020 This is a 55-year-old male with a past medical history significant for hypertension, asthma, COPD, and former nicotine dependence. Patient does not follow with a yard associate. We have been asked to see the patient in consultation for new onset atrial fibrillation. Patient examined at the bedside. Patient initially presented to the hospital secondary to shortness of breath. Patient has been diagnosed with COPD exacerbation. He is currently on a BiPAP at the time of examination. Yesterday, patient went into atrial fibrillation. Patient was started on oral Cardizem. Patient's heart rate remains mildly uncontrolled this morning with a heart rate in the 110s. He denies chest pain or pressure. He reports significant shortness of breath at the time of examination. EKG reveals atrial fibrillation. Heart rate 107. T-wave inversions in V5 through V6 Chest xray emphysema with expanded lung volumes suggesting chronic obstructive p ulmonary disease. No airspace consolidation. No pleural effusion. No cardiomegaly. Laboratory data: WBC 19.2. Hemoglobin 13.4. Platelet count 499. Sodium 132. Potassium 5.1. BUN 19. Creatinine 0.48. BNP 777. Current home cardiac medications include lisinopril 20 mg daily Most recent echocardiogram obtained in October 2020 reveals ejection fraction 60-65%, trace mitral regurgitation, mild tricuspid regurgitation, and mild pulmonary hypertension 11/25/2020 Patient examined this morning at the bedside. Patients breathing is less labored this morning. He denies chest pain or pressure. He has converted to sinus mechanism. He remains on Eliquis and cardizem. PHYSICAL EXAM: VITAL SIGNS: Reviewed. GENERAL: Well-developed in no acute distress. HEENT: Head is normocephalic. Pupils are equal, round. Sclerae anicteric. Mucous membranes of the mouth are moist. Neck supple. No JVD or thyromegaly LUNGS: Respirations even and unlabored. Lungs with diminished breath sounds bilaterally, patient with improved air exchange today. HEART: Regular rate and rhythm. S1 and S2 heard. ABDOMEN: Soft. Nondistended. Nontender. EXTREMITIES: Normal range of motion. No clubbing or cyanosis. Peripheral pulses intact. No lower extremity edema NEUROLOGIC: Awake and alert. Oriented x 3. ASSESSMENT: Acute COPD exacerbation Acute on chronic hypoxic and hypercapnic respiratory failure, on home O2 New onset atrial fibrillation with mildly rapid ventricular rates, paroxysmal, currently maintaining sinus mechanism Hypertension Former nicotine dependence History of marijuana use Hyperlipidemia PLAN: Pulmonary following for COPD Continue anticoagulation with Eliquis Decrease lisinopril to 10 mg daily Change Cardizem to Cardizem CD 180 mg daily Further recommendations pending patient course Nurse practitioner note has been reviewed by physician. Signing provider agrees with the documented findings, assessment, and plan of care. Objective - Vital Signs Vital signs: Vital Signs Temp 98.4 F 11/25/20 03:55 Pulse 72 11/25/20 11:26 Resp 19 11/25/20 03:55 BP 102/59 11/25/20 03:55 Pulse Ox 94 L 11/25/20 03:55 Intake & Output 11/24/20 11/25/20 11/25/20 18:59 06:59 18:59 Intake Total 480 240 Output Total 700 250 Balance 480 -700 -10 Weight 65.1 kg Intake: Oral 480 240 Output: Urine 700 250 Other: # Voids 2 2 - Labs CBC & Chem 7: 11/25/20 09:19 11/25/20 09:19 Labs: Abnormal Lab Results - Last 24 Hours (Table) 11/24/20 11/24/20 11/25/20 Range/Units 16:32 20:07 05:56 WBC (3.8-10.6) k/uL RBC (4.30-5.90) m/uL Hgb (13.0-17.5) gm/dL Hct (39.0-53.0) % Neutrophils # (1.3-7.7) k/uL Lymphocytes # (1.0-4.8) k/uL Sodium (137-145) mmol/L Chloride (98-107) mmol/L Carbon Dioxide (22-30) mmol/L BUN (9-20) mg/dL Creatinine (0.66-1.25) mg/dL Glucose (74-99) mg/dL POC Glucose (mg/dL) 141 H 201 H 153 H (75-99) mg/dL 11/25/20 11/25/20 11/25/20 Range/Units 09:19 09:19 11:44 WBC 13.5 H (3.8-10.6) k/uL RBC 4.16 L (4.30-5.90) m/uL Hgb 12.2 L (13.0-17.5) gm/dL Hct 38.8 L (39.0-53.0) % Neutrophils # 12.1 H (1.3-7.7) k/uL Lymphocytes # 0.7 L (1.0-4.8) k/uL Sodium 129 L (137-145) mmol/L Chloride 82 L (98-107) mmol/L Carbon Dioxide 44 H* (22-30) mmol/L BUN 25 H (9-20) mg/dL Creatinine 0.60 L (0.66-1.25) mg/dL Glucose 171 H (74-99) mg/dL POC Glucose (mg/dL) 212 H (75-99) mg/dL Microbiology - Last 24 Hours (Table) 11/24/20 11:30 Gram Stain - Preliminary Sputum Sputum Culture - Preliminary
[2020-11-25 16:42] LABS: Glucose,Whole Blood 81 mg/dL (75-99)
[2020-11-25] MEDS: DILTIAZEM CD 180 MG CAP.ER.24H PO SCH (17:33)
[2020-11-25] MEDS: ATORVASTATIN 40 MG TAB PO SCH (21:13)
[2020-11-25 21:30] LABS: Glucose,Whole Blood 221 mg/dL (75-99)
[2020-11-26] MEDS: ALBUTEROL NEBULIZED 2.5 MG/3 ML INHALATION SCH ×5 (06:10→20:10)
[2020-11-26 06:47] LABS: Glucose,Whole Blood 157 mg/dL (75-99)
[2020-11-26] MEDS: INSULIN ASPART (NovoLOG) 100 UNIT/ML VIAL SQ SCH ×4 (06:59→20:48)
[2020-11-26] MEDS: PANTOPRAZOLE 40 MG TABLET PO SCH (06:59)
[2020-11-26] MEDS: methylPREDNISolone SOD SUCCI 125 MG/2 ML VIAL IV SCH ×4 (06:59→23:54)
[2020-11-26] MEDS: MULTIVITAMINS, THERA 1 EACH TAB PO SCH (08:52)
[2020-11-26] MEDS: DILTIAZEM CD 180 MG CAP.ER.24H PO SCH (08:52)
[2020-11-26] MEDS: APIXABAN 5 MG TAB PO SCH ×2 (08:52→20:47)
[2020-11-26] MEDS: AZITHROMYCIN 500 MG TAB PO SCH (08:52)
[2020-11-26] MEDS: FAMOTIDINE 20 MG TAB PO SCH ×2 (08:52→20:47)
[2020-11-26] MEDS: ASCORBIC ACID 500 MG TAB PO SCH (08:52)
--- NOTE | 2020-11-26 12:01 | P.PN ---
Subjective Progress Note Date: 11/26/20 HISTORY OF PRESENT ILLNESS: 11/24/2020 This is a 55-year-old male with a past medical history significant for hypertension, asthma, COPD, and former nicotine dependence. 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 We have been asked to see the patient in consultation for new onset atrial fibrillation. Patient examined at the bedside. Patient initially presented to the hospital secondary to shortness of breath. Patient has been diagnosed with COPD exacerbation. He is currently on a BiPAP at the time of examination. Yesterday, patient went into atrial fibrillation. Patient was started on oral Cardizem. Patient's heart rate remains mildly uncontrolled this morning with a heart rate in the 110s. He denies chest pain or pressure. He reports significant shortness of breath at the time of examination. EKG reveals atrial fibrillation. Heart rate 107. T-wave inversions in V5 through V6 Chest xray emphysema with expanded lung volumes suggesting chronic obstructive p ulmonary disease. No airspace consolidation. No pleural effusion. No cardiomegaly. Laboratory data: WBC 19.2. Hemoglobin 13.4. Platelet count 499. Sodium 132. Potassium 5.1. BUN 19. Creatinine 0.48. BNP 777. Current home cardiac medications include lisinopril 20 mg daily Most recent echocardiogram obtained in October 2020 reveals ejection fraction 60-65%, trace mitral regurgitation, mild tricuspid regurgitation, and mild pulmonary hypertension 11/25/2020 Patient examined this morning at the bedside. Patients breathing is less labored this morning. He denies chest pain or pressure. He has converted to sinus mechanism. He remains on Eliquis and cardizem. 11/26/2020 Patient examined this morning at the bedside. He is wearing a bipap. He denies chest pain or pressure. He reports mild SOB. He remains in sinus mechanism on telemetry. He remains on Eliquis and cardizem. PHYSICAL EXAM: VITAL SIGNS: Reviewed. GENERAL: Well-developed in no acute distress. HEENT: Head is normocephalic. Pupils are equal, round. Sclerae anicteric. Mucous membranes of the mouth are moist. Neck supple. No JVD or thyromegaly LUNGS: Respirations even and unlabored. Lungs with diminished breath sounds bilaterally. HEART: Regular rate and rhythm. S1 and S2 heard. ABDOMEN: Soft. Nondistended. Nontender. EXTREMITIES: Normal range of motion. No clubbing or cyanosis. Peripheral pulses intact. No lower extremity edema NEUROLOGIC: Awake and alert. Oriented x 3. ASSESSMENT: Acute COPD exacerbation Acute on chronic hypoxic and hypercapnic respiratory failure, on home O2 New onset atrial fibrillation with mildly rapid ventricular rates, paroxysmal, currently maintaining sinus mechanism Hypertension Former nicotine dependence History of marijuana use Hyperlipidemia PLAN: Pulmonary following for COPD Continue anticoagulation with Eliquis Continue current dose of lisinopril and Cardizem Further recommendations pending patient course Nurse practitioner note has been reviewed by physician. Signing provider agrees with the documented findings, assessment, and plan of care. Objective - Vital Signs Vital signs: Vital Signs Temp 97.2 F L 11/26/20 08:03 Pulse 88 11/26/20 08:20 Resp 16 11/26/20 08:03 BP 139/75 11/26/20 08:03 Pulse Ox 92 L 11/26/20 08:03 Intake & Output 11/25/20 11/26/20 11/26/20 18:59 06:59 18:59 Intake Total 850 540 870 Output Total 1450 1000 850 Balance -600 -460 20 Weight 64.8 kg Intake: IV 10 10 Invasive Line 1 10 10 Oral 840 540 860 Output: Urine 1450 1000 850 Other: Voiding Method Toilet Toilet Urinal # Voids 2 4 - Labs CBC & Chem 7: 11/25/20 09:19 11/25/20 09:19 Labs: Abnormal Lab Results - Last 24 Hours (Table) 11/25/20 11/25/20 11/25/20 Range/Units 09:19 09:19 11:44 WBC 13.5 H (3.8-10.6) k/uL RBC 4.16 L (4.30-5.90) m/uL Hgb 12.2 L (13.0-17.5) gm/dL Hct 38.8 L (39.0-53.0) % Neutrophils # 12.1 H (1.3-7.7) k/uL Lymphocytes # 0.7 L (1.0-4.8) k/uL Sodium 129 L (137-145) mmol/L Chloride 82 L (98-107) mmol/L Carbon Dioxide 44 H* (22-30) mmol/L BUN 25 H (9-20) mg/dL Creatinine 0.60 L (0.66-1.25) mg/dL Glucose 171 H (74-99) mg/dL POC Glucose (mg/dL) 212 H (75-99) mg/dL 11/25/20 11/26/20 Range/Units 20:41 06:42 WBC (3.8-10.6) k/uL RBC (4.30-5.90) m/uL Hgb (13.0-17.5) gm/dL Hct (39.0-53.0) % Neutrophils # (1.3-7.7) k/uL Lymphocytes # (1.0-4.8) k/uL Sodium (137-145) mmol/L Chloride (98-107) mmol/L Carbon Dioxide (22-30) mmol/L BUN (9-20) mg/dL Creatinine (0.66-1.25) mg/dL Glucose (74-99) mg/dL POC Glucose (mg/dL) 221 H 157 H (75-99) mg/dL Microbiology - Last 24 Hours (Table) 11/24/20 11:30 Gram Stain - Preliminary Sputum Sputum Culture - Preliminary
[2020-11-26 12:14] LABS: Glucose,Whole Blood 166 mg/dL (75-99)
[2020-11-26] MEDS: lisinopriL 10 MG TAB PO SCH (12:24)
[2020-11-26] MEDS: SODIUM CHLORIDE 0.9% 1,000 ML IV SCH ×2 (12:25→23:55)
--- NOTE | 2020-11-26 12:31 | P.PN ---
Subjective This is a pleasant 55-year-old patient of Dr. Irizarry. 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 Patient was admitted to the hospital in October, with end-stage severe COPD exacerbation. Patient was stable when he was discharged. Does have 3 L of oxygen at home. Patient was also not tapering dose of steroids. About a week ago he finished his last dose of prednisone. Symptoms started to get gradually worse. Becoming more and more short of breath. Pulse ox 97% started going down to 192%. Has been having wheezing. Patient always has some green sputum. Appetite is fair No weight loss. No fever no chills. 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 Admitted with acute severe end-stage COPD exacerbation. Put on bronchodilators IV steroids and his steroids. Today-had his breakfast. Short of breath. At rest on BiPAP. Tired Subjective: 11/25/2020 This is a pleasant 55 years old male with multiple medical problems presents with acute COPD exacerbation and acute hypoxic hypercapnic respiratory failure with history of alpha-1 antitrypsin deficiency. Also patient found to have new onset A. fib with RVR. He has chronic leukocytosis in the range of 13-14 K, slightly worse currently but also is on steroids He uses BiPAP machine last night. 2 days ago he was started on performing test which caused his dyspnea to get worse and ALLERGIC reaction is suspected and patient was informed not to use Perforomist in the future and he verbalized understanding. Also he needed more BiPAP yesterday and today. He is using oxygen at home about 3-4 L/m. But he is not using BiPAP at home On examination he still has decreased air entry on both sides. He is saturating 94% on 4 L oxygen via nasal cannula. Which is stable from yesterday. Labs showing improved leukocytosis of 13.5 K. Sodium slightly trending down to 129. Resolved. He is unremarkable. He is Currently covered with Eliquis 5 mg and Cardizem dose increased to 60 mg 3 times a day, also is on Zithromax, salmeterol 60 mg and normal saline at 100 mL per hour. Which is stopped and placed on Lasix 40 mg 1. 11/26/2020 Patient breathing clinically stable and he still on 4 L oxygen via nasal cannula. He does not use his BiPAP machine last night compared to the night before. However his to have limited air entry on both sides. Pulmonary team on the case and the plan and to provide a BiPAP machine or equivalent for him upon discharge. He has COPD exacerbation on the top of his alpha-1 antitrypsin deficiency. Also his been followed by cardiology for new A. fib and currently heart rate is controlled on Cardizem 180 mg daily and Eliquis 5 mg Patient is currently on Zithromax, Eliquis, Solu-Medrol 60 mg and Cardizem 180 mg daily. Review of systems CONSTITUTIONAL: No fever, no malaise, no fatigue. HEENT: No recent visual problems or hearing problems. Denied any sore throat. CARDIOVASCULAR: No orthopnea, PND, no palpitations, no syncope. PULMONARY: No chest wall tenderness Gastrointestinal: no nausea, no vomiting, no abdominal pain. Normoactive bowel sounds. NEUROLOGICAL: No headaches, no weakness, no numbness. Active Medications Generic Name Dose Route Start Last Admin Trade Name Freq PRN Reason Stop Dose Admin Albuterol Sulfate 2.5 mg 11/25/20 08:00 11/26/20 11:19 Albuterol Nebulized 2.5 Mg/3 Ml INHALATION 2.5 mg RT-Q4H CLAUDE Administration Albuterol Sulfate 2.5 mg 11/25/20 07:48 Albuterol Nebulized 2.5 Mg/3 Ml INHALATION RT-Q2H PRN Shortness Of Breath Or Wheezing Apixaban 5 mg 11/24/20 11:45 11/26/20 08:52 Apixaban 5 Mg Tab PO 5 mg BID CLAUDE Administration Ascorbic Acid 500 mg 11/24/20 09:00 11/26/20 08:52 Ascorbic Acid 500 Mg Tab PO 500 mg DAILY CLAUDE Administration Atorvastatin Calcium 40 mg 11/24/20 21:00 11/25/20 21:13 Atorvastatin 40 Mg Tab PO 40 mg HS CLAUDE Administration Azithromycin 500 mg 11/26/20 09:00 11/26/20 08:52 Azithromycin 500 Mg Tab PO 500 mg DAILY CLAUDE Administration Diltiazem HCl 180 mg 11/25/20 14:00 11/26/20 08:52 Diltiazem Cd 180 Mg Cap.Er.24h PO 180 mg DAILY CLAUDE Administration Famotidine 20 mg 11/23/20 10:30 11/26/20 08:52 Famotidine 20 Mg Tab PO 20 mg BID CLAUDE Administration Sodium Chloride 1,000 mls @ 20 mls/hr 11/23/20 02:00 11/26/20 12:25 Saline 0.9% IV Not Given .Q24H CLAUDE Insulin Aspart 0 unit 11/23/20 21:00 11/26/20 12:24 Insulin Aspart (Novolog) 100 Unit/Ml Vial SQ 3 unit ACHS CLAUDE Administration Protocol Lisinopril 10 mg 11/26/20 14:00 11/26/20 12:24 Lisinopril 10 Mg Tab PO 10 mg DAILY@1400 CLAUDE Administration Methylprednisolone Sodium Succinate 60 mg 11/23/20 06:00 11/26/20 12:24 Methylprednisolone Sod Succi 125 Mg/2 Ml Vial IV 60 mg Q6HR CLAUDE Administration Morphine Sulfate 2 mg 11/24/20 09:54 11/24/20 09:58 Morphine Sulfate 2 Mg/Ml Syringe IVP 2 mg Q4H PRN Administration Pain/Discomfort Multivitamins 1 each 11/24/20 09:00 11/26/20 08:52 Multivitamins, Thera 1 Each Tab PO 1 each DAILY CLAUDE Administration Pantoprazole Sodium 40 mg 11/24/20 07:30 11/26/20 06:59 Pantoprazole 40 Mg Tablet PO 40 mg AC-BRKFST CLAUDE Administration Objective - Vital Signs Vital signs: Vital Signs Temp 97.2 F L 11/26/20 08:03 Pulse 88 11/26/20 11:34 Resp 16 11/26/20 08:03 BP 139/75 11/26/20 08:03 Pulse Ox 92 L 11/26/20 08:03 Intake & Output 11/25/20 11/26/20 11/26/20 18:59 06:59 18:59 Intake Total 850 540 870 Output Total 1450 1000 850 Balance -600 -460 20 Weight 64.8 kg Intake: IV 10 10 Invasive Line 1 10 10 Oral 840 540 860 Output: Urine 1450 1000 850 Other: Voiding Method Toilet Toilet Urinal # Voids 2 4 - Exam GENERAL: The patient is alert and oriented x3, not in any acute distress. Well developed, well nourished. HEENT: Pupils are round and equally reacting to light. EOMI. No scleral icterus. No conjunctival pallor. Normocephalic, atraumatic. No pharyngeal erythema. No thyromegaly. CARDIOVASCULAR: S1 and S2 present. No murmurs, rubs, or gallops. -PULMONARY: Chest is clear to auscultation, no wheezing or crackles. Decreased air entry on both sides ABDOMEN: Soft, nontender, nondistended, normoactive bowel sounds. No palpable organomegaly. MUSCULOSKELETAL: No joint swelling or deformity. EXTREMITIES: No cyanosis, clubbing, or pedal edema. NEUROLOGICAL: Gross neurological examination did not reveal any focal deficits. SKIN: No rashes. no petechiae. - Labs CBC & Chem 7: 11/25/20 09:19 11/25/20 09:19 Labs: Abnormal Lab Results - Last 24 Hours (Table) 11/25/20 11/26/20 11/26/20 Range/Units 20:41 06:42 12:13 POC Glucose (mg/dL) 221 H 157 H 166 H (75-99) mg/dL Assessment and Plan Assessment: Assessment and plan: -Acute severe end-stage COPD exacerbation in an ex-smoker. on bronchodilators, IV steroids and inhaled steroids.-Slow to respond -Acute hypoxic hypercapnic respiratory failure secondary to COPD exacerbation. On BiPAP- improving -Chronic hypoxic respiratory failure on 3 his oxygen at home -Alpha-1 antitrypsin deficiency -Essential hypertension, continue with lisinopril -Chronic insomnia continue with melatonin -Mild Hyponatremia with hypervolemia -DVT prophylaxison Lovenox GI prophylaxis: Pepcid Prognosis is guarded
--- NOTE | 2020-11-26 12:31 | P.PN ---
Subjective Progress Note Date: 11/26/20 55-year-old white male patient with history of severe COPD/emphysema, alpha-1 a ntitrypsin deficiency,, with baseline FEV1 of 19% of predicted and severe diffusion abnormality of 40% of predicted. Patient was recently hospitalized 10/27/2020 through 11/01/2020 for acute exacerbation of severe COPD. Up until his recent hospitalization patient was not requiring home oxygen however he was sent home on home oxygen after his last admission on 3 L. In addition patient was to complete 16 day course of prednisone taper, he was sent home on nebulized DuoNeb, Perforomist, he had already been taken Trelegy Ellipta 93213.525 one puff inhalation daily. Patient is an ex-smoker, however has not smoked 1 year, prior to that smoked for 36 years pack a day, in addition had smoked marijuana. His other medical history hypertension, his blood pressure medication had to be by his primary care physician Dr. Irizarry. Patient's blood pressure was running low, and his lisinopril dose was dropped from 20 mg to 5 mg daily. On 11/22/2020 patient was brought to the emergency department per EMS for severe respiratory distress, worsening hypoxia and dyspnea. Patient's is at the [facility], and providing us a history. She stated that about a week ago patient had seen Dr. Irizarry in follow-up, and he had just completed his prednisone taper and after that his symptoms of worsening dyspnea and hypoxia seemed to worsen. He was increasingly more short of breath, off, he is bringing up some greenish colored sputum. He is complaining of some chest wall soreness from coughing in the anterior sternal bone, which is reproducible with palpation. He tested negative for COVID 19. His chest x-ray showed emphysema and standard lung volumes, no airspace consolidation, but showing some interstitial prominence, he was in significant respiratory distress on arrival he was placed on BiPAP support with pressures of 15 and 6 and FiO2 of 40%, his blood gas showed pO2 of 64, pCO2 of 104, and pH of 7.23, consistent with acute on chronic hypercapnic and hypoxic respiratory failure. She was started on IV steroids, empiric antibiotics, breathing treatments, he is feeling much better today, he is awaiting a bed on selective care in the emergency department, he is currently off BiPAP support and on 5 L of oxygen his pulse ox of 96%, afebrile, eating easier today, however still has some coarse diffuse crackles on physical exam On 11/24/2020 the patient is being seen for a follow-up. As mentioned earlier, he is a case of severe COPD. He was in slight for an acute COPD exacerbation. Earlier this morning, after receiving a Perforomist nebulized treatment, the patient became acutely short of breath bronchospastic and wheezy and is quite anxious. Accordingly, he was placed on a BiPAP at current pressure is 14/5 cm of water. I dropped the inspiratory time down to 0.6 and the patient is feeling better. Is urinating a tidal volume of 800 with a respiratory rate of 23. He was using excessive muscle breathing and his slightly more comfortable at this point in time. He is still anxious. He is actively bronchospastic and wheezy and there is marked diminished breath sounds bilaterally. No chest pain. He is also crackling in the lung bases bilaterally. He thinks it performance could have caused this acute bronchospasm On 11/25/2020, the patient is still having reactions even to DuoNeb and based on that I switched him on his albuterol nebulized treatments around the clock. He remains on IV Solu-Medrol. He remains on BiPAP. I further switched him to a AVAPS mode with a target tidal volume of 600 and the patient is feeling better with that. He was given a dose of Lasix and producing adequate amount of urine output. Otherwise, he is doing well. No specific complaints. No chest pain. no Altered mentation. He is a negative fluid balance since yesterday. Blood work shows no major abnormalities. 11/26/2020 the patient is feeling much better. He slept all night without his BiPAP and currently is on 40s about 2 by nasal cannula. He is able to speak longer sentences. No chest pain. No altered mentation. No synovitis sputum production. He continues to have a congested cough. Note that I switched him to a AVAPS mode yesterday with a tidal volume target of 600 mL. No other new complaints otherwise for now. he is on albuterol neb last treatment [id number] 4 times a day. He is also on IV Solu-Medrol 60 mg every 6 hours. Objective - Vital Signs Vital signs: Vital Signs Temp 97.2 F L 11/26/20 08:03 Pulse 88 11/26/20 11:34 Resp 16 11/26/20 08:03 BP 139/75 11/26/20 08:03 Pulse Ox 92 L 11/26/20 08:03 Intake & Output 11/25/20 11/26/20 11/26/20 18:59 06:59 18:59 Intake Total 850 540 870 Output Total 1450 1000 850 Balance -600 -460 20 Weight 64.8 kg Intake: IV 10 10 Invasive Line 1 10 10 Oral 840 540 860 Output: Urine 1450 1000 850 Other: Voiding Method Toilet Toilet Urinal # Voids 2 4 - Exam GENERAL EXAM: Alert, very pleasant, 55-year-old white male, currently having nicotine breathing along with the use of accessory muscles of breathing and the patient is quite tachypneic and short of breath, he was immediately placed back on BiPAP support with pressures of 15/6 and FiO2 of 40%, and has since improved subsequently got switched to a AVAPS mode HEAD: Normocephalic/atraumatic. EYES: Normal reaction of pupils, equal size. Conjunctiva pink, sclera white. NOSE: Clear with pink turbinates. THROAT: No erythema or exudates. NECK: No masses, no JVD, no thyroid enlargement, no adenopathy. CHEST: No chest wall deformity. Symmetrical expansion. Some mild tenderness to palpation over sternal area with coughing, reproducible LUNGS: Equal air entry with diffuse coarse crackles, anteriorly and posteriorly, overall diminished breath sounds bilaterally CVS: Regular rate and rhythm, normal S1 and S2, no gallops, no murmurs, no rubs ABDOMEN: Soft, nontender. No hepatosplenomegaly, normal bowel sounds, no guarding or rigidity. EXTREMITIES: No clubbing, no edema, no cyanosis, 2+ pulses and upper and lower extremities. MUSCULOSKELETAL: Muscle strength and tone normal. SPINE: No scoliosis or deformity SKIN: No rashes CENTRAL NERVOUS SYSTEM: Alert and oriented -3. No focal deficits, tone is normal in all 4 extremities. PSYCHIATRIC: Alert and oriented -3. Appropriate affect. Intact judgment and insight. - Labs CBC & Chem 7: 11/25/20 09:19 11/25/20 09:19 Labs: Abnormal Lab Results - Last 24 Hours (Table) 11/25/20 11/26/20 11/26/20 Range/Units 20:41 06:42 12:13 POC Glucose (mg/dL) 221 H 157 H 166 H (75-99) mg/dL Assessment and Plan Plan: #1. Acute on chronic hypoxic and hypercapnic respiratory failure related to acute exacerbation of COPD, and possibility of mild diastolic CHF. COVID 19 was negative [place] and the patient is clinically improving. He was treated with bronchodilators, IV Solu-Medrol and is being offered AVAPS mode ventilation overnight and during the day. Much improved. We'll continue insulin Medrol for another 24 hours. #2. Severe COPD, baseline FEV1 of 19% of predicted, stage IV COPD, on home oxygen at 3 L that was started during his last hospitalization at the beginning of November #3. Alpha-1 anti-trypsin efficiency #4. History of smoking, [id number], in remission for 1 year, in addition to marijuana use, also in remission #5. Hypertension Plan: continue Solu-Medrol 60 mg every 6, continue albuterol nebulized treatments only. Continue Zithromax. He is same treatment. No need for any further doses of diuretics. Reevaluate in a.m. Long-term prognosis poor baseline above-mentioned comorbidities. May benefit from a AVAPS machine at home at a time of discharge was given this can be arranged on outpatient basis
[2020-11-26 17:07] LABS: Glucose,Whole Blood 261 mg/dL (75-99)
[2020-11-26] MEDS: TRELEGY ELLIPTA INHALATION SCH (20:11)
[2020-11-26 20:12] LABS: Glucose,Whole Blood 291 mg/dL (75-99)
[2020-11-26] MEDS: ATORVASTATIN 40 MG TAB PO SCH (20:48)
[2020-11-26] MEDS ORDERED: LOPERAMIDE 2 MG CAP PO PRN (23:34)
[2020-11-27] MEDS: SODIUM CHLORIDE 0.9% 1,000 ML IV SCH ×4 (00:05→23:06)
[2020-11-27] MEDS: ALBUTEROL NEBULIZED 2.5 MG/3 ML INHALATION SCH ×6 (00:45→19:38)
[2020-11-27 06:14] LABS: Glucose,Whole Blood 157 mg/dL (75-99)
[2020-11-27] MEDS: methylPREDNISolone SOD SUCCI 125 MG/2 ML VIAL IV SCH ×4 (06:42→23:05)
[2020-11-27] MEDS: PANTOPRAZOLE 40 MG TABLET PO SCH (06:42)
[2020-11-27] MEDS: INSULIN ASPART (NovoLOG) 100 UNIT/ML VIAL SQ SCH ×4 (06:42→20:01)
[2020-11-27] MEDS ORDERED: NON FORMULARY DRUG (Fluticasone/Umeclidin/Vilanter [Trelegy Ellipta 100-62.5-25] 1 EACH Bl INHALATION SCH (08:00)
[2020-11-27] MEDS: TRELEGY ELLIPTA INHALATION SCH (08:05)
[2020-11-27 08:19] LABS: African American GFR (CKD) >90 (>60 ml/min/1.73 sqM); Anion Gap 2 mmol/L; Blood Urea Nitrogen 21 mg/dL (9-20); Chloride 84 mmol/L (98-107); Glucose 131 mg/dL (74-99); Non-African American GFR(CKD) >90 (>60 ml/min/1.73 sqM); Potassium 4.8 mmol/L (3.5-5.1); Sodium 126 mmol/L (137-145)
[2020-11-27] MEDS: MULTIVITAMINS, THERA 1 EACH TAB PO SCH (08:56)
[2020-11-27] MEDS: FAMOTIDINE 20 MG TAB PO SCH ×2 (08:56→20:01)
[2020-11-27] MEDS: DILTIAZEM CD 180 MG CAP.ER.24H PO SCH (08:56)
[2020-11-27] MEDS: APIXABAN 5 MG TAB PO SCH ×2 (08:56→20:01)
[2020-11-27] MEDS: AZITHROMYCIN 500 MG TAB PO SCH (08:56)
[2020-11-27] MEDS: ASCORBIC ACID 500 MG TAB PO SCH (08:56)
[2020-11-27 09:13] LABS: Carbon Dioxide 34 mmol/L (22-30)
[2020-11-27 09:22] LABS: Basophils # (A) 0.1 k/uL (0-0.2); Basophils % (A) 1 %; Eosinophils % (A) 0 %; HCT 36.7 % (39.0-53.0); HGB 12.9 gm/dL (13.0-17.5); Lymphocytes # (A) 0.6 k/uL (1.0-4.8); Lymphocytes % (A) 4 %; MCH 31.6 pg (25.0-35.0); MCHC 35.1 g/dL (31.0-37.0); MCV 90.2 fL (80.0-100.0); Mean Platelet Volume 9.4; Monocytes # (A) 0.4 k/uL (0-1.0); Monocytes % (A) 3 %; Neutrophils # (A) 12.5 k/uL (1.3-7.7); Neutrophils % (A) 92 %; Platelet Count 271 k/uL (150-450); RBC 4.07 m/uL (4.30-5.90); RDW 12.3 % (11.5-15.5); WBC 13.6 k/uL (3.8-10.6)
--- NOTE | 2020-11-27 10:44 | P.PN ---
Subjective Progress Note Date: 11/27/20 HISTORY OF PRESENT ILLNESS: 11/24/2020 This is a 55-year-old male with a past medical history significant for hypertension, asthma, COPD, and former nicotine dependence. 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 We have been asked to see the patient in consultation for new onset atrial fibrillation. Patient examined at the bedside. Patient initially presented to the hospital secondary to shortness of breath. Patient has been diagnosed with COPD exacerbation. He is currently on a BiPAP at the time of examination. Yesterday, patient went into atrial fibrillation. Patient was started on oral Cardizem. Patient's heart rate remains mildly uncontrolled this morning with a heart rate in the 110s. He denies chest pain or pressure. He reports significant shortness of breath at the time of examination. EKG reveals atrial fibrillation. Heart rate 107. T-wave inversions in V5 through V6 Chest xray emphysema with expanded lung volumes suggesting chronic obstructive p ulmonary disease. No airspace consolidation. No pleural effusion. No cardiomegaly. Laboratory data: WBC 19.2. Hemoglobin 13.4. Platelet count 499. Sodium 132. Potassium 5.1. BUN 19. Creatinine 0.48. BNP 777. Current home cardiac medications include lisinopril 20 mg daily Most recent echocardiogram obtained in October 2020 reveals ejection fraction 60-65%, trace mitral regurgitation, mild tricuspid regurgitation, and mild pulmonary hypertension 11/25/2020 Patient examined this morning at the bedside. Patients breathing is less labored this morning. He denies chest pain or pressure. He has converted to sinus mechanism. He remains on Eliquis and cardizem. 11/26/2020 Patient examined this morning at the bedside. He is wearing a bipap. He denies chest pain or pressure. He reports mild SOB. He remains in sinus mechanism on telemetry. He remains on Eliquis and cardizem. 11/27/2020 patient examined this morning at the bedside. Patient is currently on 4 L nasal cannula with oxygen saturations greater than 92%. Blood pressure 128/77. He is maintaining sinus mechanism on telemetry. He continues to report shortness of breath but states it is improving daily. PHYSICAL EXAM: VITAL SIGNS: Reviewed. GENERAL: Well-developed in no acute distress. HEENT: Head is normocephalic. Pupils are equal, round. Sclerae anicteric. Mucous membranes of the mouth are moist. Neck supple. No JVD or thyromegaly LUNGS: Respirations even and unlabored. Lungs with diminished breath sounds bilaterally. HEART: Regular rate and rhythm. S1 and S2 heard. EXTREMITIES: Normal range of motion. No clubbing or cyanosis. Peripheral pulses intact. No lower extremity edema ASSESSMENT: Acute COPD exacerbation Acute on chronic hypoxic and hypercapnic respiratory failure, on home O2 New onset atrial fibrillation with mildly rapid ventricular rates, paroxysmal, currently maintaining sinus mechanism Hypertension Former nicotine dependence History of marijuana use Hyperlipidemia PLAN: Pulmonary following for COPD Continue anticoagulation with Eliquis Continue current dose of lisinopril and Cardizem Further recommendations pending patient course Nurse practitioner note has been reviewed by physician. Signing provider agrees with the documented findings, assessment, and plan of care. Objective - Vital Signs Vital signs: Vital Signs Temp 98 F 11/27/20 07:45 Pulse 83 11/27/20 08:17 Resp 18 11/27/20 07:45 BP 128/77 11/27/20 07:45 Pulse Ox 94 L 11/27/20 08:05 Intake & Output 11/26/20 11/27/20 11/27/20 18:59 06:59 18:59 Intake Total 1230 275 240 Output Total 850 1425 Balance 380 -1150 240 Weight 65.2 kg Intake: IV 10 Invasive Line 1 10 Oral 1220 275 240 Output: Urine 850 1425 Other: Voiding Method Toilet Toilet Urinal Urinal # Bowel Movements 1 - Labs CBC & Chem 7: 11/27/20 07:12 11/27/20 07:12 Labs: Abnormal Lab Results - Last 24 Hours (Table) 11/26/20 11/26/20 11/26/20 Range/Units 12:13 17:05 20:10 WBC (3.8-10.6) k/uL RBC (4.30-5.90) m/uL Hgb (13.0-17.5) gm/dL Hct (39.0-53.0) % Neutrophils # (1.3-7.7) k/uL Lymphocytes # (1.0-4.8) k/uL Sodium (137-145) mmol/L Chloride (98-107) mmol/L Carbon Dioxide (22-30) mmol/L BUN (9-20) mg/dL Creatinine (0.66-1.25) mg/dL Glucose (74-99) mg/dL POC Glucose (mg/dL) 166 H 261 H 291 H (75-99) mg/dL Calcium (8.4-10.2) mg/dL 11/27/20 11/27/20 11/27/20 Range/Units 06:13 07:12 07:12 WBC 13.6 H (3.8-10.6) k/uL RBC 4.07 L (4.30-5.90) m/uL Hgb 12.9 L (13.0-17.5) gm/dL Hct 36.7 L (39.0-53.0) % Neutrophils # 12.5 H (1.3-7.7) k/uL Lymphocytes # 0.6 L (1.0-4.8) k/uL Sodium 126 L (137-145) mmol/L Chloride 84 L (98-107) mmol/L Carbon Dioxide 34 H (22-30) mmol/L BUN 21 H (9-20) mg/dL Creatinine 0.36 L (0.66-1.25) mg/dL Glucose 131 H (74-99) mg/dL POC Glucose (mg/dL) 157 H (75-99) mg/dL Calcium 8.0 L (8.4-10.2) mg/dL Microbiology - Last 24 Hours (Table) 11/24/20 11:30 Gram Stain - Preliminary Sputum Sputum Culture - Preliminary Gram Neg Bacilli
[2020-11-27 12:01] LABS: Glucose,Whole Blood 234 mg/dL (75-99)
--- NOTE | 2020-11-27 12:31 | P.PN ---
Subjective Progress Note Date: 11/27/20 55-year-old white male patient with history of severe COPD/emphysema, alpha-1 a ntitrypsin deficiency,, with baseline FEV1 of 19% of predicted and severe diffusion abnormality of 40% of predicted. Patient was recently hospitalized 10/27/2020 through 11/01/2020 for acute exacerbation of severe COPD. Up until his recent hospitalization patient was not requiring home oxygen however he was sent home on home oxygen after his last admission on 3 L. In addition patient was to complete 16 day course of prednisone taper, he was sent home on nebulized DuoNeb, Perforomist, he had already been taken Trelegy Ellipta 93854.525 one puff inhalation daily. Patient is an ex-smoker, however has not smoked 1 year, prior to that smoked for 36 years pack a day, in addition had smoked marijuana. His other medical history hypertension, his blood pressure medication had to be by his primary care physician Dr. Irizarry. Patient's blood pressure was running low, and his lisinopril dose was dropped from 20 mg to 5 mg daily. On 11/22/2020 patient was brought to the emergency department per EMS for severe respiratory distress, worsening hypoxia and dyspnea. Patient's is at the [facility], and providing us a history. She stated that about a week ago patient had seen Dr. Irizarry in follow-up, and he had just completed his prednisone taper and after that his symptoms of worsening dyspnea and hypoxia seemed to worsen. He was increasingly more short of breath, off, he is bringing up some greenish colored sputum. He is complaining of some chest wall soreness from coughing in the anterior sternal bone, which is reproducible with palpation. He tested negative for COVID 19. His chest x-ray showed emphysema and standard lung volumes, no airspace consolidation, but showing some interstitial prominence, he was in significant respiratory distress on arrival he was placed on BiPAP support with pressures of 15 and 6 and FiO2 of 40%, his blood gas showed pO2 of 64, pCO2 of 104, and pH of 7.23, consistent with acute on chronic hypercapnic and hypoxic respiratory failure. She was started on IV steroids, empiric antibiotics, breathing treatments, he is feeling much better today, he is awaiting a bed on selective care in the emergency department, he is currently off BiPAP support and on 5 L of oxygen his pulse ox of 96%, afebrile, eating easier today, however still has some coarse diffuse crackles on physical exam On 11/24/2020 the patient is being seen for a follow-up. As mentioned earlier, he is a case of severe COPD. He was in slight for an acute COPD exacerbation. Earlier this morning, after receiving a Perforomist nebulized treatment, the patient became acutely short of breath bronchospastic and wheezy and is quite anxious. Accordingly, he was placed on a BiPAP at current pressure is 14/5 cm of water. I dropped the inspiratory time down to 0.6 and the patient is feeling better. Is urinating a tidal volume of 800 with a respiratory rate of 23. He was using excessive muscle breathing and his slightly more comfortable at this point in time. He is still anxious. He is actively bronchospastic and wheezy and there is marked diminished breath sounds bilaterally. No chest pain. He is also crackling in the lung bases bilaterally. He thinks it performance could have caused this acute bronchospasm On 11/25/2020, the patient is still having reactions even to DuoNeb and based on that I switched him on his albuterol nebulized treatments around the clock. He remains on IV Solu-Medrol. He remains on BiPAP. I further switched him to a AVAPS mode with a target tidal volume of 600 and the patient is feeling better with that. He was given a dose of Lasix and producing adequate amount of urine output. Otherwise, he is doing well. No specific complaints. No chest pain. no Altered mentation. He is a negative fluid balance since yesterday. Blood work shows no major abnormalities. 11/26/2020 the patient is feeling much better. He slept all night without his BiPAP and currently is on 40s about 2 by nasal cannula. He is able to speak longer sentences. No chest pain. No altered mentation. No synovitis sputum production. He continues to have a congested cough. Note that I switched him to a AVAPS mode yesterday with a tidal volume target of 600 mL. No other new complaints otherwise for now. he is on albuterol neb last treatment [id number] 4 times a day. He is also on IV Solu-Medrol 60 mg every 6 hours. 11/27/2020 the patient is being seen for a follow-up. He was on 4 L of oxygen by nasal cannula and today he is still on 4 L. He is using the AV avaps machine overnight. He is doing well for now. No significant chest pain. He is still short of breath with limited amount of activity and sometimes at rest. Overall, improving. Note that due to shortage of her respirators, the patient was taken off the AVAPS machine and he was given a O2 BiPAP machine if he is using overnight. He prefers the first. His sodium level today the 126. We'll proceed with some fluid restrictions. Is on IV Solu-Medrol at a dose of 60 mg every 6 hours. He is also on albuterol nebulized treatments 4 times a day. Unable to tolerate other nebulizer medications.. He brought Eren Vásquez from home which she uses it once a day. The IV Fluids to [facility]. Objective - Vital Signs Vital signs: Vital Signs Temp 98 F 11/27/20 07:45 Pulse 77 11/27/20 11:51 Resp 18 11/27/20 11:40 BP 138/84 11/27/20 11:40 Pulse Ox 90 L 11/27/20 11:40 Intake & Output 11/26/20 11/27/20 11/27/20 18:59 06:59 18:59 Intake Total 1230 275 240 Output Total 850 1425 Balance 380 -1150 240 Weight 65.2 kg Intake: IV 10 Invasive Line 1 10 Oral 1220 275 240 Output: Urine 850 1425 Other: Voiding Method Toilet Toilet Urinal Urinal # Bowel Movements 1 - Exam GENERAL EXAM: Alert, very pleasant, 55-year-old white male, currently having nicotine breathing along with the use of accessory muscles of breathing and the patient is quite tachypneic and short of breath, he was immediately placed back on BiPAP support with pressures of 15/6 and FiO2 of 40%, and has since improved subsequently got switched to a AVAPS mode HEAD: Normocephalic/atraumatic. EYES: Normal reaction of pupils, equal size. Conjunctiva pink, sclera white. NOSE: Clear with pink turbinates. THROAT: No erythema or exudates. NECK: No masses, no JVD, no thyroid enlargement, no adenopathy. CHEST: No chest wall deformity. Symmetrical expansion. Some mild tenderness to palpation over sternal area with coughing, reproducible LUNGS: Equal air entry with diffuse coarse crackles, anteriorly and posteriorly, overall diminished breath sounds bilaterally CVS: Regular rate and rhythm, normal S1 and S2, no gallops, no murmurs, no rubs ABDOMEN: Soft, nontender. No hepatosplenomegaly, normal bowel sounds, no guarding or rigidity. EXTREMITIES: No clubbing, no edema, no cyanosis, 2+ pulses and upper and lower extremities. MUSCULOSKELETAL: Muscle strength and tone normal. SPINE: No scoliosis or deformity SKIN: No rashes CENTRAL NERVOUS SYSTEM: Alert and oriented -3. No focal deficits, tone is normal in all 4 extremities. PSYCHIATRIC: Alert and oriented -3. Appropriate affect. Intact judgment and insight. - Labs CBC & Chem 7: 11/27/20 07:12 11/27/20 07:12 Labs: Abnormal Lab Results - Last 24 Hours (Table) 11/26/20 11/26/20 11/27/20 Range/Units 17:05 20:10 06:13 WBC (3.8-10.6) k/uL RBC (4.30-5.90) m/uL Hgb (13.0-17.5) gm/dL Hct (39.0-53.0) % Neutrophils # (1.3-7.7) k/uL Lymphocytes # (1.0-4.8) k/uL Sodium (137-145) mmol/L Chloride (98-107) mmol/L Carbon Dioxide (22-30) mmol/L BUN (9-20) mg/dL Creatinine (0.66-1.25) mg/dL Glucose (74-99) mg/dL POC Glucose (mg/dL) 261 H 291 H 157 H (75-99) mg/dL Calcium (8.4-10.2) mg/dL 11/27/20 11/27/20 11/27/20 Range/Units 07:12 07:12 12:00 WBC 13.6 H (3.8-10.6) k/uL RBC 4.07 L (4.30-5.90) m/uL Hgb 12.9 L (13.0-17.5) gm/dL Hct 36.7 L (39.0-53.0) % Neutrophils # 12.5 H (1.3-7.7) k/uL Lymphocytes # 0.6 L (1.0-4.8) k/uL Sodium 126 L (137-145) mmol/L Chloride 84 L (98-107) mmol/L Carbon Dioxide 34 H (22-30) mmol/L BUN 21 H (9-20) mg/dL Creatinine 0.36 L (0.66-1.25) mg/dL Glucose 131 H (74-99) mg/dL POC Glucose (mg/dL) 234 H (75-99) mg/dL Calcium 8.0 L (8.4-10.2) mg/dL Microbiology - Last 24 Hours (Table) 11/24/20 11:30 Gram Stain - Preliminary Sputum Sputum Culture - Preliminary Gram Neg Bacilli Assessment and Plan Plan: #1. Acute on chronic hypoxic and hypercapnic respiratory failure related to acute exacerbation of COPD, and possibility of mild diastolic CHF. COVID 19 was negative [place] and the patient is clinically improving. He was treated with br onchodilators, IV Solu-Medrol and auto bipap mode ventilation overnight and during the day. Much improved. We'll continue Solu-Medrol for another 24 hours. #2. Severe COPD, baseline FEV1 of 19% of predicted, stage IV COPD, on home oxygen at 3 L that was started during his last hospitalization at the beginning of November #3. Alpha-1 anti-trypsin efficiency #4. History of smoking, [id number], in remission for 1 year, in addition to marijuana use, also in remission #5. Hypertension #6 hyponatremia Plan: continue Solu-Medrol 60 mg every 6, continue albuterol nebulized treatments o nly. Continue Zithromax. He is same treatment. No need for any further doses of diuretics. Reevaluate in a.m. Long-term prognosis poor baseline above- mentioned comorbidities. Currently the patient is using a auto BiPAP machine in the hospital. The Fluids to KVO and restrict fluids in regards to his underlying hyponatremia. May benefit from a AVAPS machine at home at a time of discharge was given this can be arranged on outpatient basis
[2020-11-27] MEDS: lisinopriL 10 MG TAB PO SCH (14:26)
[2020-11-27 16:45] LABS: Glucose,Whole Blood 209 mg/dL (75-99)
--- NOTE | 2020-11-27 17:17 | P.PN ---
Subjective This is a pleasant 55-year-old patient of Dr. Irizarry. 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 Patient was admitted to the hospital in October, with end-stage severe COPD exacerbation. Patient was stable when he was discharged. Does have 3 L of oxygen at home. Patient was also not tapering dose of steroids. About a week ago he finished his last dose of prednisone. Symptoms started to get gradually worse. Becoming more and more short of breath. Pulse ox 97% started going down to 192%. Has been having wheezing. Patient always has some green sputum. Appetite is fair No weight loss. No fever no chills. 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 Admitted with acute severe end-stage COPD exacerbation. Put on bronchodilators IV steroids and his steroids. Today-had his breakfast. Short of breath. At rest on BiPAP. Tired Subjective: 11/25/2020 This is a pleasant 55 years old male with multiple medical problems presents with acute COPD exacerbation and acute hypoxic hypercapnic respiratory failure with history of alpha-1 antitrypsin deficiency. Also patient found to have new onset A. fib with RVR. He has chronic leukocytosis in the range of 13-14 K, slightly worse currently but also is on steroids He uses BiPAP machine last night. 2 days ago he was started on performing test which caused his dyspnea to get worse and ALLERGIC reaction is suspected and patient was informed not to use Perforomist in the future and he verbalized understanding. Also he needed more BiPAP yesterday and today. He is using oxygen at home about 3-4 L/m. But he is not using BiPAP at home On examination he still has decreased air entry on both sides. He is saturating 94% on 4 L oxygen via nasal cannula. Which is stable from yesterday. Labs showing improved leukocytosis of 13.5 K. Sodium slightly trending down to 129. Resolved. He is unremarkable. He is Currently covered with Eliquis 5 mg and Cardizem dose increased to 60 mg 3 times a day, also is on Zithromax, salmeterol 60 mg and normal saline at 100 mL per hour. Which is stopped and placed on Lasix 40 mg 1. 11/26/2020 Patient breathing clinically stable and he still on 4 L oxygen via nasal cannula. He does not use his BiPAP machine last night compared to the night before. However his to have limited air entry on both sides. Pulmonary team on the case and the plan and to provide a BiPAP machine or equivalent for him upon discharge. He has COPD exacerbation on the top of his alpha-1 antitrypsin deficiency. Also his been followed by cardiology for new A. fib and currently heart rate is controlled on Cardizem 180 mg daily and Eliquis 5 mg Patient is currently on Zithromax, Eliquis, Solu-Medrol 60 mg and Cardizem 180 mg daily. 11/27/2020 Patient still with dyspnea and coughing with decreased air entry on both lungs. Sputum culture is growing gram-negative bacilli, final result is pending. Currently on Zithromax. Follow-up sputum culture and check chest x-ray tomorrow Also patient using a BiPAP machine for his acute COPD exacerbation, continue Solu-Medrol, patient will need a VATS machine upon discharge per pulmonology recommendation. Currently at baseline oxygen saturation 90s on 4 L oxygen Sodium is trending down to 126, keep monitoring, while carbonic backside improved to 34. WBC is stable at 13 while patient is on steroids. Prognosis remains guarded Objective - Vital Signs Vital signs: Vital Signs Temp 98 F 11/27/20 07:45 Pulse 77 11/27/20 11:51 Resp 18 11/27/20 11:40 BP 138/84 11/27/20 11:40 Pulse Ox 90 L 11/27/20 11:40 Intake & Output 11/26/20 11/27/20 11/27/20 18:59 06:59 18:59 Intake Total 1230 275 360 Output Total 850 1425 300 Balance 380 -1150 60 Weight 65.2 kg Intake: IV 10 Invasive Line 1 10 Oral 1220 275 360 Output: Urine 850 1425 300 Other: Voiding Method Toilet Toilet Urinal Urinal # Bowel Movements 1 - Exam GENERAL: The patient is alert and oriented x3, not in any acute distress. Well developed, well nourished. HEENT: Pupils are round and equally reacting to light. EOMI. No scleral icterus. No conjunctival pallor. Normocephalic, atraumatic. No pharyngeal erythema. No thyromegaly. CARDIOVASCULAR: S1 and S2 present. No murmurs, rubs, or gallops. -PULMONARY: Chest is clear to auscultation, no wheezing or crackles. Decreased air entry on both sides ABDOMEN: Soft, nontender, nondistended, normoactive bowel sounds. No palpable organomegaly. MUSCULOSKELETAL: No joint swelling or deformity. EXTREMITIES: No cyanosis, clubbing, or pedal edema. NEUROLOGICAL: Gross neurological examination did not reveal any focal deficits. SKIN: No rashes. no petechiae. - Labs CBC & Chem 7: 11/27/20 07:12 11/27/20 07:12 Labs: Abnormal Lab Results - Last 24 Hours (Table) 11/26/20 11/26/20 11/27/20 Range/Units 17:05 20:10 06:13 WBC (3.8-10.6) k/uL RBC (4.30-5.90) m/uL Hgb (13.0-17.5) gm/dL Hct (39.0-53.0) % Neutrophils # (1.3-7.7) k/uL Lymphocytes # (1.0-4.8) k/uL Sodium (137-145) mmol/L Chloride (98-107) mmol/L Carbon Dioxide (22-30) mmol/L BUN (9-20) mg/dL Creatinine (0.66-1.25) mg/dL Glucose (74-99) mg/dL POC Glucose (mg/dL) 261 H 291 H 157 H (75-99) mg/dL Calcium (8.4-10.2) mg/dL 11/27/20 11/27/20 11/27/20 Range/Units 07:12 07:12 12:00 WBC 13.6 H (3.8-10.6) k/uL RBC 4.07 L (4.30-5.90) m/uL Hgb 12.9 L (13.0-17.5) gm/dL Hct 36.7 L (39.0-53.0) % Neutrophils # 12.5 H (1.3-7.7) k/uL Lymphocytes # 0.6 L (1.0-4.8) k/uL Sodium 126 L (137-145) mmol/L Chloride 84 L (98-107) mmol/L Carbon Dioxide 34 H (22-30) mmol/L BUN 21 H (9-20) mg/dL Creatinine 0.36 L (0.66-1.25) mg/dL Glucose 131 H (74-99) mg/dL POC Glucose (mg/dL) 234 H (75-99) mg/dL Calcium 8.0 L (8.4-10.2) mg/dL Microbiology - Last 24 Hours (Table) 11/24/20 11:30 Gram Stain - Preliminary Sputum Sputum Culture - Preliminary Gram Neg Bacilli Assessment and Plan Assessment: Assessment and plan: -Acute severe end-stage COPD exacerbation in an ex-smoker. on bronchodilators, IV steroids and inhaled steroids.-Slow to respond -Acute hypoxic hypercapnic respiratory failure secondary to COPD exacerbation. On BiPAP- improving -Chronic hypoxic respiratory failure on 3 his oxygen at home -Alpha-1 antitrypsin deficiency -Essential hypertension, continue with lisinopril -Chronic insomnia continue with melatonin -Mild Hyponatremia with hypervolemia -DVT prophylaxison Lovenox GI prophylaxis: Pepcid Prognosis is guarded
[2020-11-27] MEDS: ATORVASTATIN 40 MG TAB PO SCH (20:01)
[2020-11-27 20:18] LABS: Glucose,Whole Blood 179 mg/dL (75-99)
[2020-11-28] MEDS: ALBUTEROL NEBULIZED 2.5 MG/3 ML INHALATION SCH ×7 (00:01→23:32)
[2020-11-28 06:15] LABS: Glucose,Whole Blood 150 mg/dL (75-99)
[2020-11-28] MEDS: methylPREDNISolone SOD SUCCI 125 MG/2 ML VIAL IV SCH ×4 (06:48→23:13)
[2020-11-28] MEDS: INSULIN ASPART (NovoLOG) 100 UNIT/ML VIAL SQ SCH ×4 (06:48→21:08)
[2020-11-28] MEDS: PANTOPRAZOLE 40 MG TABLET PO SCH (06:48)
[2020-11-28] MEDS: TRELEGY ELLIPTA INHALATION SCH (07:38)
--- NOTE | 2020-11-28 07:44 | XR ---
EXAMINATION TYPE: XR chest 1V DATE OF EXAM: 11/28/2020 HISTORY: Shortness of breath. COMPARISON: 11/25/2020 TECHNIQUE: Single view of the chest is submitted. FINDINGS: Demonstrated are scattered senescent parenchymal change. Hyperinflation compatible with COPD. Scattered interstitial infiltrates throughout both lung miles p ersists. The heart is stable. Hilar and mediastinal structures are within normal limits. Degenerative changes are seen of the dorsal spine. IMPRESSION: 1. Hyperinflation compatible with COPD. Scattered interstitial infiltrates throughout both lung fiel ds persists.
[2020-11-28] MEDS: FAMOTIDINE 20 MG TAB PO SCH ×2 (08:01→21:08)
[2020-11-28] MEDS: ASCORBIC ACID 500 MG TAB PO SCH (08:01)
[2020-11-28] MEDS: DILTIAZEM CD 180 MG CAP.ER.24H PO SCH (08:01)
[2020-11-28] MEDS: MULTIVITAMINS, THERA 1 EACH TAB PO SCH (08:01)
[2020-11-28] MEDS: APIXABAN 5 MG TAB PO SCH ×2 (08:01→21:08)
[2020-11-28] MEDS: AZITHROMYCIN 500 MG TAB PO SCH (08:01)
[2020-11-28 09:53] LABS: African American GFR (CKD) >90 (>60 ml/min/1.73 sqM); Anion Gap 4 mmol/L; Blood Urea Nitrogen 21 mg/dL (9-20); Calcium 8.2 mg/dL (8.4-10.2); Chloride 84 mmol/L (98-107); Glucose 210 mg/dL (74-99); Magnesium 2.2 mg/dL (1.6-2.3); Non-African American GFR(CKD) >90 (>60 ml/min/1.73 sqM); Potassium 4.3 mmol/L (3.5-5.1); Sodium 128 mmol/L (137-145)
[2020-11-28 10:01] LABS: Carbon Dioxide 39 mmol/L (22-30)
--- NOTE | 2020-11-28 10:14 | P.PN ---
Subjective Progress Note Date: 11/28/20 55-year-old white male patient with history of severe COPD/emphysema, alpha-1 a ntitrypsin deficiency,, with baseline FEV1 of 19% of predicted and severe diffusion abnormality of 40% of predicted. Patient was recently hospitalized 10/27/2020 through 11/01/2020 for acute exacerbation of severe COPD. Up until his recent hospitalization patient was not requiring home oxygen however he was sent home on home oxygen after his last admission on 3 L. In addition patient was to complete 16 day course of prednisone taper, he was sent home on nebulized DuoNeb, Perforomist, he had already been taken Trelegy Ellipta [phone] one puff inhalation daily. Patient is an ex-smoker, however has not smoked 1 year, prior to that smoked for 36 years pack a day, in addition had smoked marijuana. His other medical history hypertension, his blood pressure medication had to be by his primary care physician Dr. Irizarry. Patient's blood pressure was running low, and his lisinopril dose was dropped from 20 mg to 5 mg daily. On 11/22/2020 patient was brought to the emergency department per EMS for severe respiratory distress, worsening hypoxia and dyspnea. Patient's is at the [facility], and providing us a history. She stated that about a week ago patient had seen Dr. Irizarry in follow-up, and he had just completed his prednisone taper and after that his symptoms of worsening dyspnea and hypoxia seemed to worsen. He was increasingly more short of breath, off, he is bringing up some greenish colored sputum. He is complaining of some chest wall soreness from coughing in the anterior sternal bone, which is reproducible with palpation. He tested negative for COVID 19. His chest x-ray showed emphysema and standard lung volumes, no airspace consolidation, but showing some interstitial prominence, he was in significant respiratory distress on arrival he was placed on BiPAP support with pressures of 15 and 6 and FiO2 of 40%, his blood gas showed pO2 of 64, pCO2 of 104, and pH of 7.23, consistent with acute on chronic hypercapnic and hypoxic respiratory failure. She was started on IV steroids, empiric antibiotics, breathing treatments, he is feeling much better today, he is awaiting a bed on [facility] in the emergency department, he is currently off BiPAP support and on 5 L of oxygen his pulse ox of 96%, afebrile, eating easier today, however still has some coarse diffuse crackles on physical exam On 11/24/2020 the patient is being seen for a follow-up. As mentioned earlier, he is a case of severe COPD. He was in slight for an acute COPD exacerbation. Earlier this morning, after receiving a Perforomist nebulized treatment, the patient became acutely short of breath bronchospastic and wheezy and is quite anxious. Accordingly, he was placed on a BiPAP at current pressure is 14/5 cm of water. I dropped the inspiratory time down to 0.6 and the patient is feeling better. Is urinating a tidal volume of 800 with a respiratory rate of 23. He was using excessive muscle breathing and his slightly more comfortable at this point in time. He is still anxious. He is actively bronchospastic and wheezy and there is marked diminished breath sounds bilaterally. No chest pain. He is also crackling in the lung bases bilaterally. He thinks it performance could have caused this acute bronchospasm On 11/25/2020, the patient is still having reactions even to DuoNeb and based on that I switched him on his albuterol nebulized treatments around the clock. He remains on IV Solu-Medrol. He remains on BiPAP. I further switched him to a AVAPS mode with a target tidal volume of 600 and the patient is feeling better with that. He was given a dose of Lasix and producing adequate amount of urine output. Otherwise, he is doing well. No specific complaints. No chest pain. no Altered mentation. He is a negative fluid balance since yesterday. Blood work shows no major abnormalities. 11/26/2020 the patient is feeling much better. He slept all night without his BiPAP and currently is on 40s about 2 by nasal cannula. He is able to speak longer sentences. No chest pain. No altered mentation. No synovitis sputum production. He continues to have a congested cough. Note that I switched him to a AVAPS mode yesterday with a tidal volume target of 600 mL. No other new complaints otherwise for now. he is on albuterol neb last treatment [id number] 4 times a day. He is also on IV Solu-Medrol 60 mg every 6 hours. 11/27/2020 the patient is being seen for a follow-up. He was on 4 L of oxygen by nasal cannula and today he is still on 4 L. He is using the AV avaps machine overnight. He is doing well for now. No significant chest pain. He is still short of breath with limited amount of activity and sometimes at rest. Overall, improving. Note that due to shortage of her respirators, the patient was taken off the AVAPS machine and he was given a O2 BiPAP machine if he is using overnight. He prefers the first. His sodium level today the 126. We'll proceed with some fluid restrictions. Is on IV Solu-Medrol at a dose of 60 mg every 6 hours. He is also on albuterol nebulized treatments 4 times a day. Unable to tolerate other nebulizer medications.. He brought Eren Vásquez from home which she uses it once a day. The IV Fluids to KVO. 11/28/2020, the patient remains on 4 L of oxygen by nasal cannula. Utilizing a automatic BiPAP machine overnight.. The patient is still having some limited cough and some congestion. Overall condition is improved with a combination of steroids. He was able to get fistula GE from home and he is using it once a day. Overnight he is also using the BiPAP. I will say he has responded significantly to systemic steroids and the treatment we've offered to him here in the hospital. He is getting reactions hours Perforomist and Pulmicort and both of those have been discontinued for now. Is tolerating his diet. The sodium level is also improving. His Current IV is at KVO. Objective - Vital Signs Vital signs: Vital Signs Temp 98.6 F 11/28/20 00:00 Pulse 105 H 11/28/20 08:00 Resp 22 11/28/20 08:00 BP 168/77 11/28/20 08:00 Pulse Ox 92 L 11/28/20 08:00 Intake & Output 11/27/20 11/28/20 11/28/20 18:59 06:59 18:59 Intake Total 600 180 Output Total 300 700 450 Balance 300 -700 -270 Weight 69 kg Intake: Intake, IV Titration 60 Amount Sodium Chloride 0.9% 1, 60 000 ml @ 20 mls/hr IV . Q24H CLAUDE Rx#:[id number] Oral 600 120 Output: Urine 300 700 450 Other: Voiding Method Toilet Toilet Urinal Urinal # Voids 1 - Exam GENERAL EXAM: Alert, very pleasant, 55-year-old white male, breathing is comfortable. He is not using excessive muscle breathing. Much improved. HEAD: Normocephalic/atraumatic. EYES: Normal reaction of pupils, equal size. Conjunctiva pink, sclera white. NOSE: Clear with pink turbinates. THROAT: No erythema or exudates. NECK: No masses, no JVD, no thyroid enlargement, no adenopathy. CHEST: No chest wall deformity. Symmetrical expansion. Some mild tenderness to palpation over sternal area with coughing, reproducible LUNGS: Equal air entry with diffuse coarse crackles, anteriorly and posteriorly, overall diminished breath sounds bilaterally CVS: Regular rate and rhythm, normal S1 and S2, no gallops, no murmurs, no rubs ABDOMEN: Soft, nontender. No hepatosplenomegaly, normal bowel sounds, no guarding or rigidity. EXTREMITIES: No clubbing, no edema, no cyanosis, 2+ pulses and upper and lower extremities. MUSCULOSKELETAL: Muscle strength and tone normal. SPINE: No scoliosis or deformity SKIN: No rashes CENTRAL NERVOUS SYSTEM: Alert and oriented -3. No focal deficits, tone is normal in all 4 extremities. PSYCHIATRIC: Alert and oriented -3. Appropriate affect. Intact judgment and insight. - Labs CBC & Chem 7: 11/27/20 07:12 11/28/20 08:52 Labs: Abnormal Lab Results - Last 24 Hours (Table) 11/27/20 11/27/20 11/27/20 Range/Units 12:00 16:44 19:55 Sodium (137-145) mmol/L Chloride (98-107) mmol/L Carbon Dioxide (22-30) mmol/L BUN (9-20) mg/dL Creatinine (0.66-1.25) mg/dL Glucose (74-99) mg/dL POC Glucose (mg/dL) 234 H 209 H 179 H (75-99) mg/dL Calcium (8.4-10.2) mg/dL 11/28/20 11/28/20 Range/Units 05:54 08:52 Sodium 128 L (137-145) mmol/L Chloride 84 L (98-107) mmol/L Carbon Dioxide 39 H (22-30) mmol/L BUN 21 H (9-20) mg/dL Creatinine 0.44 L (0.66-1.25) mg/dL Glucose 210 H (74-99) mg/dL POC Glucose (mg/dL) 150 H (75-99) mg/dL Calcium 8.2 L (8.4-10.2) mg/dL Assessment and Plan Plan: #1. Acute on chronic hypoxic and hypercapnic respiratory failure related to acute exacerbation of COPD, and possibility of mild diastolic CHF. COVID 19 was negative SD and the patient is clinically improving. He was treated with bronchodilators, IV Solu-Medrol and auto bipap mode ventilation overnight and during the day. Much improved. We'll continue Solu-Medrol for another 24 hours. Meanwhile, the patient is interested in device on outpatient basis. We'll try to qualify him for a device by checking his nocturnal oxygen saturation while being on 4 L and demonstrating that the patient desaturates at nighttime. Note that he has advanced lung disease with an FEV1 of 90% of predicted. #2. Severe COPD, baseline FEV1 of 19% of predicted, stage IV COPD, on home oxygen at 3 L that was started during his last hospitalization at the beginning of November #3. Alpha-1 anti-trypsin efficiency #4. 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 Hypertension #6 hyponatremia Plan: continue Solu-Medrol 60 mg every 6, continue albuterol nebulized treatments only. Continue Zithromax. Do a nocturnal oxygen analysis evaluation and decide if the patient qualifies for a device at home. Preferably, I would suggest a AVAPS machine with a target tidal volume of 500 for this patient. Continue Trelegy . Continue the albuterol nebulizers. Continued IV Solu Medrol. Taper to prednisone as of tomorrow. Possible discharge within the next 24-48 hours depending on his overall progress.
[2020-11-28 11:51] LABS: Glucose,Whole Blood 252 mg/dL (75-99)
[2020-11-28] MEDS: lisinopriL 10 MG TAB PO SCH (12:14)
--- NOTE | 2020-11-28 12:27 | P.PN ---
Subjective Progress Note Date: 11/28/20 HISTORY OF PRESENT ILLNESS: 11/24/2020 This is a 55-year-old male with a past medical history significant for hypertension, asthma, COPD, and former nicotine dependence. 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 We have been asked to see the patient in consultation for new onset atrial fibrillation. Patient examined at the bedside. Patient initially presented to the hospital secondary to shortness of breath. Patient has been diagnosed with COPD exacerbation. He is currently on a BiPAP at the time of examination. Yesterday, patient went into atrial fibrillation. Patient was started on oral Cardizem. Patient's heart rate remains mildly uncontrolled this morning with a heart rate in the 110s. He denies chest pain or pressure. He reports significant shortness of breath at the time of examination. EKG reveals atrial fibrillation. Heart rate 107. T-wave inversions in V5 through V6 Chest xray emphysema with expanded lung volumes suggesting chronic obstructive p ulmonary disease. No airspace consolidation. No pleural effusion. No cardiomegaly. Laboratory data: WBC 19.2. Hemoglobin 13.4. Platelet count 499. Sodium 132. Potassium 5.1. BUN 19. Creatinine 0.48. BNP 777. Current home cardiac medications include lisinopril 20 mg daily Most recent echocardiogram obtained in October 2020 reveals ejection fraction 60-65%, trace mitral regurgitation, mild tricuspid regurgitation, and mild pulmonary hypertension 11/25/2020 Patient examined this morning at the bedside. Patients breathing is less labored this morning. He denies chest pain or pressure. He has converted to sinus mechanism. He remains on Eliquis and cardizem. 11/26/2020 Patient examined this morning at the bedside. He is wearing a bipap. He denies chest pain or pressure. He reports mild SOB. He remains in sinus mechanism on telemetry. He remains on Eliquis and cardizem. 11/27/2020 patient examined this morning at the bedside. Patient is currently on 4 L nasal cannula with oxygen saturations greater than 92%. Blood pressure 128/77. He is maintaining sinus mechanism on telemetry. He continues to report shortness of breath but states it is improving daily. 11/28/2020 Patient examined this morning at the bedside. Patient is currently on nasal cannula. He continues to report some mild shortness of breath. He's maintaining sinus mechanism on telemetry. He remains on Eliquis. PHYSICAL EXAM: VITAL SIGNS: Reviewed. GENERAL: Well-developed in no acute distress. HEENT: Head is normocephalic. Pupils are equal, round. Sclerae anicteric. Mucous membranes of the mouth are moist. Neck supple. No JVD or thyromegaly LUNGS: Respirations even and unlabored. Lungs with diminished breath sounds bilaterally. HEART: Regular rate and rhythm. S1 and S2 heard. EXTREMITIES: Normal range of motion. No clubbing or cyanosis. Peripheral pu lses intact. No lower extremity edema ASSESSMENT: Acute COPD exacerbation Acute on chronic hypoxic and hypercapnic respiratory failure, on home O2 New onset atrial fibrillation with mildly rapid ventricular rates, paroxysmal, currently maintaining sinus mechanism Hypertension Former nicotine dependence History of marijuana use Hyperlipidemia PLAN: Pulmonary following for COPD Continue anticoagulation with Eliquis Continue current dose of lisinopril and Cardizem We will sign off. Please reconsult if needed. Patient to follow-up on an outpatient basis with Dr. Starks Nurse practitioner note has been reviewed by physician. Signing provider agrees with the documented findings, assessment, and plan of care. Objective - Vital Signs Vital signs: Vital Signs Temp 98.6 F 11/28/20 00:00 Pulse 84 11/28/20 12:08 Resp 18 11/28/20 11:47 BP 149/81 11/28/20 11:47 Pulse Ox 99 11/28/20 11:47 Intake & Output 11/27/20 11/28/20 11/28/20 18:59 06:59 18:59 Intake Total 600 180 Output Total 300 700 450 Balance 300 -700 -270 Weight 69 kg Intake: Intake, IV Titration 60 Amount Sodium Chloride 0.9% 1, 60 000 ml @ 20 mls/hr IV . Q24H CLAUDE Rx#:[id number] Oral 600 120 Output: Urine 300 700 450 Other: Voiding Method Toilet Toilet Urinal Urinal # Voids 1 - Labs CBC & Chem 7: 11/27/20 07:12 11/28/20 08:52 Labs: Abnormal Lab Results - Last 24 Hours (Table) 11/27/20 11/27/20 11/28/20 Range/Units 16:44 19:55 05:54 Sodium (137-145) mmol/L Chloride (98-107) mmol/L Carbon Dioxide (22-30) mmol/L BUN (9-20) mg/dL Creatinine (0.66-1.25) mg/dL Glucose (74-99) mg/dL POC Glucose (mg/dL) 209 H 179 H 150 H (75-99) mg/dL Calcium (8.4-10.2) mg/dL 11/28/20 11/28/20 Range/Units 08:52 11:50 Sodium 128 L (137-145) mmol/L Chloride 84 L (98-107) mmol/L Carbon Dioxide 39 H (22-30) mmol/L BUN 21 H (9-20) mg/dL Creatinine 0.44 L (0.66-1.25) mg/dL Glucose 210 H (74-99) mg/dL POC Glucose (mg/dL) 252 H (75-99) mg/dL Calcium 8.2 L (8.4-10.2) mg/dL
--- NOTE | 2020-11-28 14:43 | P.PN ---
Subjective This is a pleasant 55-year-old patient of Dr. Irizarry. Intake Nurse-Dr. Presley history of alpha-1 antitrypsin deficiency . Patient was admitted to the hospital in October, with end-stage severe COPD exacerbation. Patient was stable when he was discharged. Does have 3 L of oxygen at home. Patient was also not tapering dose of steroids. About a week ago he finished his last dose of prednisone. Symptoms started to get gradually worse. Becoming more and more short of breath. Pulse ox 97% started going down to 192%. Has been having wheezing. Patient always has some green sputum. Appetite is fair No weight loss. No fever no chills. 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 Admitted with acute severe end-stage COPD exacerbation. Put on bronchodilators IV steroids and his steroids. Today-had his breakfast. Short of breath. At rest on BiPAP. Tired Subjective: 11/25/2020 This is a pleasant 55 years old male with multiple medical problems presents with acute COPD exacerbation and acute hypoxic hypercapnic respiratory failure with history of alpha-1 antitrypsin deficiency. Also patient found to have new onset A. fib with RVR. He has chronic leukocytosis in the range of 13-14 K, slightly worse currently but also is on steroids He uses BiPAP machine last night. 2 days ago he was started on performing test which caused his dyspnea to get worse and ALLERGIC reaction is suspected and patient was informed not to use Perforomist in the future and he verbalized understanding. Also he needed more BiPAP yesterday and today. He is using oxygen at home about 3-4 L/m. But he is not using BiPAP at home On examination he still has decreased air entry on both sides. He is saturating 94% on 4 L oxygen via nasal cannula. Which is stable from yesterday. Labs showing improved leukocytosis of 13.5 K. Sodium slightly trending down to 129. Resolved. He is unremarkable. He is Currently covered with Eliquis 5 mg and Cardizem dose increased to 60 mg 3 times a day, also is on Zithromax, salmeterol 60 mg and normal saline at 100 mL per hour. Which is stopped and placed on Lasix 40 mg 1. 11/26/2020 Patient breathing clinically stable and he still on 4 L oxygen via nasal cannula. He does not use his BiPAP machine last night compared to the night before. However his to have limited air entry on both sides. Pulmonary team on the case and the plan and to provide a BiPAP machine or equivalent for him upon discharge. He has COPD exacerbation on the top of his alpha-1 antitrypsin deficiency. Also his been followed by cardiology for new A. fib and currently heart rate is controlled on Cardizem 180 mg daily and Eliquis 5 mg Patient is currently on Zithromax, Eliquis, Solu-Medrol 60 mg and Cardizem 180 mg daily. 11/27/2020 Patient still with dyspnea and coughing with decreased air entry on both lungs. Sputum culture is growing gram-negative bacilli, final result is pending. Currently on Zithromax. Follow-up sputum culture and check chest x-ray tomorrow Also patient using a BiPAP machine for his acute COPD exacerbation, continue Solu-Medrol, patient will need a VATS machine upon discharge per pulmonology recommendation. Currently at baseline oxygen saturation 90s on 4 L oxygen Sodium is trending down to 126, keep monitoring, while carbonic backside improved to 34. WBC is stable at 13 while patient is on steroids. Prognosis remains guarded 11/28/2020 Clinically he is the same he still with some dyspnea with baseline oxygen at 4 L/m, he used this new small BiPAP machine at bedside little bit twice last night and early this morning. He did not like it much but he is willing to continue using it when needed. Repeat chest x-ray showing COPD with scattered interstitial infiltrates throu ghout both lung miles. When i reviewed The chest x-ray by myself it looks slightly worse compared to 3 days ago. Sputum culture is growing gram negative bacilli with final results pending, patient is currently on Zithromax. However patient as well as by pulmonary team, it looks his stable from their perspective and he keeps improving and possible discharge in 24-48 hours. Cardiology are following the patient for new onset A. fib, rate controlled and automation and controls instructor team signed off the case. Sodium is stable at 128. Glucose is still slightly elevated while he is on steroids. Objective - Vital Signs Vital signs: Vital Signs Temp 98.6 F 11/28/20 00:00 Pulse 84 11/28/20 12:08 Resp 18 11/28/20 11:47 BP 149/81 11/28/20 11:47 Pulse Ox 99 11/28/20 11:47 Intake & Output 11/27/20 11/28/20 11/28/20 18:59 06:59 18:59 Intake Total 600 180 Output Total 300 700 450 Balance 300 -700 -270 Weight 69 kg Intake: Intake, IV Titration 60 Amount Sodium Chloride 0.9% 1, 60 000 ml @ 20 mls/hr IV . Q24H [facility] Rx#:[id number] Oral 600 120 Output: Urine 300 700 450 Other: Voiding Method Toilet Toilet Urinal Urinal # Voids 1 - Exam GENERAL: The patient is alert and oriented x3, not in any acute distress. Well developed, well nourished. HEENT: Pupils are round and equally reacting to light. EOMI. No scleral icterus. No conjunctival pallor. Normocephalic, atraumatic. No pharyngeal erythema. No thyromegaly. CARDIOVASCULAR: S1 and S2 present. No murmurs, rubs, or gallops. -PULMONARY: Chest is clear to auscultation, no wheezing or crackles. Decreased air entry on both sides ABDOMEN: Soft, nontender, nondistended, normoactive bowel sounds. No palpable organomegaly. MUSCULOSKELETAL: No joint swelling or deformity. EXTREMITIES: No cyanosis, clubbing, or pedal edema. NEUROLOGICAL: Gross neurological examination did not reveal any focal deficits. SKIN: No rashes. no petechiae. - Labs CBC & Chem 7: 11/27/20 07:12 11/28/20 08:52 Labs: Abnormal Lab Results - Last 24 Hours (Table) 11/27/20 11/27/20 11/28/20 Range/Units 16:44 19:55 05:54 Sodium (137-145) mmol/L Chloride (98-107) mmol/L Carbon Dioxide (22-30) mmol/L BUN (9-20) mg/dL Creatinine (0.66-1.25) mg/dL Glucose (74-99) mg/dL POC Glucose (mg/dL) 209 H 179 H 150 H (75-99) mg/dL Calcium (8.4-10.2) mg/dL 11/28/20 11/28/20 Range/Units 08:52 11:50 Sodium 128 L (137-145) mmol/L Chloride 84 L (98-107) mmol/L Carbon Dioxide 39 H (22-30) mmol/L BUN 21 H (9-20) mg/dL Creatinine 0.44 L (0.66-1.25) mg/dL Glucose 210 H (74-99) mg/dL POC Glucose (mg/dL) 252 H (75-99) mg/dL Calcium 8.2 L (8.4-10.2) mg/dL Assessment and Plan Assessment: Assessment and plan: -Acute severe end-stage COPD exacerbation in an ex-smoker. on bronchodilators, IV steroids and inhaled steroids.-Slow to respond -Acute hypoxic hypercapnic respiratory failure secondary to COPD exacerbation. On BiPAP- improving -Chronic hypoxic respiratory failure on 3 his oxygen at home -Alpha-1 antitrypsin deficiency -Essential hypertension, continue with lisinopril -Chronic insomnia continue with melatonin -Mild Hyponatremia with hypervolemia -DVT prophylaxison Lovenox GI prophylaxis: Pepcid Prognosis is guarded
[2020-11-28 16:53] LABS: Glucose,Whole Blood 183 mg/dL (75-99)
[2020-11-28 20:59] LABS: Glucose,Whole Blood 170 mg/dL (75-99)
[2020-11-28] MEDS: ATORVASTATIN 40 MG TAB PO SCH (21:08)
[2020-11-29] MEDS: ALBUTEROL NEBULIZED 2.5 MG/3 ML INHALATION SCH ×4 (04:00→16:15)
[2020-11-29 06:15] LABS: Glucose,Whole Blood 159 mg/dL (75-99)
[2020-11-29] MEDS: INSULIN ASPART (NovoLOG) 100 UNIT/ML VIAL SQ SCH ×4 (06:54→20:04)
[2020-11-29] MEDS: PANTOPRAZOLE 40 MG TABLET PO SCH (06:54)
[2020-11-29] MEDS: methylPREDNISolone SOD SUCCI 125 MG/2 ML VIAL IV SCH ×4 (06:54→22:48)
[2020-11-29 08:09] LABS: African American GFR (CKD) >90 (>60 ml/min/1.73 sqM); Anion Gap 3 mmol/L; Blood Urea Nitrogen 21 mg/dL (9-20); Calcium 8.4 mg/dL (8.4-10.2); Chloride 85 mmol/L (98-107); Glucose 146 mg/dL (74-99); Magnesium 2.1 mg/dL (1.6-2.3); Non-African American GFR(CKD) >90 (>60 ml/min/1.73 sqM); Potassium 4.8 mmol/L (3.5-5.1); Sodium 128 mmol/L (137-145)
[2020-11-29 08:22] LABS: Carbon Dioxide 40 mmol/L (22-30)
[2020-11-29] MEDS: TRELEGY ELLIPTA INHALATION SCH (09:16)
[2020-11-29] MEDS: AZITHROMYCIN 500 MG TAB PO SCH (09:48)
[2020-11-29] MEDS: APIXABAN 5 MG TAB PO SCH ×2 (09:48→20:03)
[2020-11-29] MEDS: MULTIVITAMINS, THERA 1 EACH TAB PO SCH (09:48)
[2020-11-29] MEDS: DILTIAZEM CD 180 MG CAP.ER.24H PO SCH (09:48)
[2020-11-29] MEDS: FAMOTIDINE 20 MG TAB PO SCH ×2 (09:48→20:03)
[2020-11-29] MEDS: ASCORBIC ACID 500 MG TAB PO SCH (09:52)
[2020-11-29 11:38] LABS: Glucose,Whole Blood 209 mg/dL (75-99)
[2020-11-29] MEDS: SODIUM CHLORIDE 0.9% 1,000 ML IV SCH (12:02)
[2020-11-29] MEDS: lisinopriL 10 MG TAB PO SCH (12:07)
[2020-11-29 14:34] VITALS: BMI 21.9
[2020-11-29 16:37] LABS: Glucose,Whole Blood 202 mg/dL (75-99)
--- NOTE | 2020-11-29 16:42 | P.PN ---
Subjective Progress Note Date: 11/29/20 Principal diagnosis: Acute exacerbation of severe hypoxic/hypercapnic respiratory failure 55-year-old white male patient with history of severe COPD/emphysema, alpha-1 antitrypsin deficiency,, with baseline FEV1 of 19% of predicted and severe diffusion abnormality of 40% of predicted. Patient was recently hospitalized 10/27/2020 through 11/01/2020 for acute exacerbation of severe COPD. Up until his recent hospitalization patient was not requiring home oxygen however he was sent home on home oxygen after his last admission on 3 L. In addition patient was to complete 16 day course of prednisone taper, he was sent home on nebulized DuoNeb, Perforomist, he had already been taken Trelegy Ellipta [phone] one puff inhalation daily. Patient is an ex-smoker, however has not smoked 1 year, prior to that smoked for 36 years pack a day, in addition had smoked marijuana. His other medical history hypertension, his blood pressure medication had to be by his primary care physician Dr. Irizarry. Patient's blood pressure was running low, and his lisinopril dose was dropped from 20 mg to 5 mg daily. On 11/22/2020 patient was brought to the emergency department per EMS for severe respiratory distress, worsening hypoxia and dyspnea. Patient's is at the bedside, and providing us a history. She stated that about a week ago patient had seen Dr. Irizarry in follow-up, and he had just completed his prednisone taper and after that his symptoms of worsening dyspnea and hypoxia seemed to worsen. He was increasingly more short of breath, off, he is bringing up some greenish colored sputum. He is complaining of some chest wall soreness from coughing in the anterior sternal bone, which is reproducible with palpation. He tested negative for COVID 19. His chest x-ray showed emphysema and standard lung volumes, no airspace consolidation, but showing some interstitial prominence, he was in significant respiratory distress on arrival he was placed on BiPAP suppor t with pressures of 15 and 6 and FiO2 of 40%, his blood gas showed pO2 of 64, pCO2 of 104, and pH of 7.23, consistent with acute on chronic hypercapnic and hypoxic respiratory failure. She was started on IV steroids, empiric antibiotics, breathing treatments, he is feeling much better today, he is awaiting a bed on selective care in the emergency department, he is currently off BiPAP support and on 5 L of oxygen his pulse ox of 96%, afebrile, eating easier today, however still has some coarse diffuse crackles on physical exam On 11/24/2020 the patient is being seen for a follow-up. As mentioned earlier, he is a case of severe COPD. He was in slight for an acute COPD exacerbation. Earlier this morning, after receiving a Perforomist nebulized treatment, the patient became acutely short of breath bronchospastic and wheezy and is quite anxious. Accordingly, he was placed on a BiPAP at current pressure is 14/5 cm of water. I dropped the inspiratory time down to 0.6 and the patient is feeling better. Is urinating a tidal volume of 800 with a respiratory rate of 23. He was using excessive muscle breathing and his slightly more comfortable at this point in time. He is still anxious. He is actively bronchospastic and wheezy and there is marked diminished breath sounds bilaterally. No chest pain. He is also crackling in the lung bases bilaterally. He thinks it performance could have caused this acute bronchospasm On 11/25/2020, the patient is still having reactions even to DuoNeb and based on that I switched him on his albuterol nebulized treatments around the clock. He remains on IV Solu-Medrol. He remains on BiPAP. I further switched him to a AVAPS mode with a target tidal volume of 600 and the patient is feeling better with that. He was given a dose of Lasix and producing adequate amount of urine output. Otherwise, he is doing well. No specific complaints. No chest pain. no Altered mentation. He is a negative fluid balance since yesterday. Blood w ork shows no major abnormalities. 11/26/2020 the patient is feeling much better. He slept all night without his BiPAP and currently is on 40s about 2 by nasal cannula. He is able to speak longer sentences. No chest pain. No altered mentation. No synovitis sputum production. He continues to have a congested cough. Note that I switched him to a AVAPS mode yesterday with a tidal volume target of 600 mL. No other new complaints otherwise for now. he is on albuterol neb last treatment [id number] 4 times a day. He is also on IV Solu-Medrol 60 mg every 6 hours. 11/27/2020 the patient is being seen for a follow-up. He was on 4 L of oxygen by nasal cannula and today he is still on 4 L. He is using the AV avaps machine overnight. He is doing well for now. No significant chest pain. He is still short of breath with limited amount of activity and sometimes at rest. Overall, improving. Note that due to shortage of her respirators, the patient was taken off the AVAPS machine and he was given a O2 BiPAP machine if he is using overnight. He prefers the first. His sodium level today the 126. We'll proceed with some fluid restrictions. Is on IV Solu-Medrol at a dose of 60 mg every 6 hours. He is also on albuterol nebulized treatments 4 times a day. Unable to tolerate other nebulizer medications.. He brought Trelecynthia Izaguirreta from home which she uses it once a day. The IV Fluids to KVO. 11/28/2020, the patient remains on 4 L of oxygen by nasal cannula. Utilizing a automatic BiPAP machine overnight.. The patient is still having some limited cough and some congestion. Overall condition is improved with a combination of steroids. He was able to get fistula GE from home and he is using it once a day. Overnight he is also using the BiPAP. I will say he has responded significantly to systemic steroids and the treatment we've offered to him here in the hospital. He is getting reactions hours Perforomist and Pulmicort and both of those have been discontinued for now. Is tolerating his diet. The sodium level is also improving. His Current IV is at KVO. The patient is seen today 11/29/2020 in follow-up on the regular medical floor. He is currently sitting up at the bedside. Awake and alert in no acute distress. Breathing a bit easier today compared to yesterday. He is maintaining O2 saturations in the 90s on 4 L/m per nasal cannula. He did utilize automatic BiPAP machine overnight. Still quite dyspneic with minimal exertion. Sputum culture was positive for pseudomonas aeruginosa. Sodium 128. Potassium 4.8. Creatinine 0.43. He is currently on azithromycin, bronchodilators, IV Solu-Medrol, home Trelegy. Objective - Vital Signs Vital signs: Vital Signs Temp 98.2 F 11/29/20 12:00 Pulse 72 11/29/20 16:15 Resp 18 11/29/20 12:00 BP 139/87 11/29/20 12:00 Pulse Ox 97 11/29/20 12:00 Intake & Output 11/28/20 11/29/20 11/29/20 18:59 06:59 18:59 Intake Total 587 208 3544 Output Total 850 1200 Balance 50 -950 1100 Weight 69.3 kg 69.3 kg Intake: IV 20 Invasive Line 3 20 Intake, IV Titration 60 Amount Sodium Chloride 0.9% 1, 60 000 ml @ 20 mls/hr IV . Q24H [facility] Rx#:[id number] Oral [id number] Output: Urine 850 1200 Other: Voiding Method Toilet Toilet Urinal Urinal # Voids 1 - Exam GENERAL EXAM: Alert, very pleasant, 55-year-old patient, on 4 L nasal cannula, breathing is comfortable. He is not using excessive muscle breathing. Much improved. HEAD: Normocephalic/atraumatic. EYES: Normal reaction of pupils, equal size. Conjunctiva pink, sclera white. NOSE: Clear with pink turbinates. THROAT: No erythema or exudates. NECK: No masses, no JVD, no thyroid enlargement, no adenopathy. CHEST: No chest wall deformity. Symmetrical expansion. Some mild tenderness to palpation over sternal area with coughing, reproducible LUNGS: Equal air entry with diffuse coarse crackles, anteriorly and posteriorly, overall diminished breath sounds bilaterally CVS: Regular rate and rhythm, normal S1 and S2, no gallops, no murmurs, no rubs ABDOMEN: Soft, nontender. No hepatosplenomegaly, normal bowel sounds, no guarding or rigidity. EXTREMITIES: No clubbing, no edema, no cyanosis, 2+ pulses and upper and lower extremities. MUSCULOSKELETAL: Muscle strength and tone normal. SPINE: No scoliosis or deformity SKIN: No rashes CENTRAL NERVOUS SYSTEM: Alert and oriented -3. No focal deficits, tone is norm al in all 4 extremities. PSYCHIATRIC: Alert and oriented -3. Appropriate affect. Intact judgment and insight. - Labs CBC & Chem 7: 11/27/20 07:12 11/29/20 07:17 Labs: Abnormal Lab Results - Last 24 Hours (Table) 11/28/20 11/28/20 11/29/20 Range/Units 16:34 20:21 06:09 Sodium (137-145) mmol/L Chloride (98-107) mmol/L Carbon Dioxide (22-30) mmol/L BUN (9-20) mg/dL Creatinine (0.66-1.25) mg/dL Glucose (74-99) mg/dL POC Glucose (mg/dL) 183 H 170 H 159 H (75-99) mg/dL 11/29/20 11/29/20 Range/Units 07:17 11:37 Sodium 128 L (137-145) mmol/L Chloride 85 L (98-107) mmol/L Carbon Dioxide 40 H (22-30) mmol/L BUN 21 H (9-20) mg/dL Creatinine 0.43 L (0.66-1.25) mg/dL Glucose 146 H (74-99) mg/dL POC Glucose (mg/dL) 209 H (75-99) mg/dL Microbiology - Last 24 Hours (Table) 11/24/20 11:30 Gram Stain - Final Sputum Sputum Culture - Final Pseudomonas aeruginosa Pseudomonas aeruginosa#2 Assessment and Plan Assessment: 1 Acute on chronic hypoxic and hypercapnic respiratory failure related to acute exacerbation of COPD, and possibility of mild diastolic CHF. COVID 19 was negative and the patient is clinically improving. He was treated with bronchodilators, IV Solu-Medrol and auto bipap mode ventilation overnight and during the day. We'll continue Solu-Medrol. Meanwhile, the patient is interested in a device on outpatient basis. The patient's nocturnal oxygen saturations revealed 5 minutes and 10 seconds that were less than 88% oxygen saturation. 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 Reji Hensley reviewed, JEAN MARIE azithromycin, initiate cefepime Consult ID services Continue current treatment plan The patient would benefit from an AVAPS machine in the outpatient setting. He does qualify with O2 saturations less than 88% for 5 minutes and 10 seconds during nocturnal testing. The patient does have a significant history of hypercapnic respiratory failure. Due to the severity of the patient's COPD, AVAPS AE is the recommended mode of therapy for this patient. BiPAP has been considered and ruled out as effective therapy for the patient. Discharge home without therapy could be dangerous and life-threatening. I, the cosigning physician, performed a history & physical examination of the patient. Lungs sounds with bilateral diffuse scattered coarse crackles bilaterally, diminished throughout,. Maintaining good O2 saturations in the 90s on 4 L/m per nasal cannula. I discussed the assessment and plan of care with my nurse practitioner, Estephania Aldridge. I attest to the above note as dictated by her.
[2020-11-29] MEDS: CEFEPIME 2 GM in SODIUM CHLORIDE 0.9% 100 ML IVPB SCH ×2 (18:07→22:48)
[2020-11-29] MEDS ORDERED: LORazepam 2 MG/ML INJ IV STA (19:25)
[2020-11-29] MEDS ORDERED: ALPRAZolam 0.5 MG TAB PO PRN (19:26)
[2020-11-29 19:54] LABS: Glucose,Whole Blood 155 mg/dL (75-99)
[2020-11-29] MEDS: ATORVASTATIN 40 MG TAB PO SCH (20:03)
[2020-11-29] MEDS: MIRTAZAPINE 15 MG TAB PO SCH (20:04)
--- NOTE | 2020-11-30 00:24 | P.PN ---
Subjective This is a pleasant 55-year-old patient of Dr. Irizarry. Rn Emergency-Dr. Presley history of alpha-1 antitrypsin deficiency . Patient was admitted to the hospital in October, with end-stage severe COPD exacerbation. Patient was stable when he was discharged. Does have 3 L of oxygen at home. Patient was also not tapering dose of steroids. About a week ago he finished his last dose of prednisone. Symptoms started to get gradually worse. Becoming more and more short of breath. Pulse ox 97% started going down to 192%. Has been having wheezing. Patient always has some green sputum. Appetite is fair No weight loss. No fever no chills. 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 Admitted with acute severe end-stage COPD exacerbation. Put on bronchodilators IV steroids and his steroids. Today-had his breakfast. Short of breath. At rest on BiPAP. Tired Subjective: 11/25/2020 This is a pleasant 55 years old male with multiple medical problems presents with acute COPD exacerbation and acute hypoxic hypercapnic respiratory failure with history of alpha-1 antitrypsin deficiency. Also patient found to have new onset A. fib with RVR. He has chronic leukocytosis in the range of 13-14 K, slightly worse currently but also is on steroids He uses BiPAP machine last night. 2 days ago he was started on performing test which caused his dyspnea to get worse and ALLERGIC reaction is suspected and patient was informed not to use Perforomist in the future and he verbalized understanding. Also he needed more BiPAP yesterday and today. He is using oxygen at home about 3-4 L/m. But he is not using BiPAP at home On examination he still has decreased air entry on both sides. He is saturating 94% on 4 L oxygen via nasal cannula. Which is stable from yesterday. Labs showing improved leukocytosis of 13.5 K. Sodium slightly trending down to 129. Resolved. He is unremarkable. He is Currently covered with Eliquis 5 mg and Cardizem dose increased to 60 mg 3 times a day, also is on Zithromax, salmeterol 60 mg and normal saline at 100 mL per hour. Which is stopped and placed on Lasix 40 mg 1. 11/26/2020 Patient breathing clinically stable and he still on 4 L oxygen via nasal cannula. He does not use his BiPAP machine last night compared to the night before. However his to have limited air entry on both sides. Pulmonary team on the case and the plan and to provide a BiPAP machine or equivalent for him upon discharge. He has COPD exacerbation on the top of his alpha-1 antitrypsin deficiency. Also his been followed by cardiology for new A. fib and currently heart rate is controlled on Cardizem 180 mg daily and Eliquis 5 mg Patient is currently on Zithromax, Eliquis, Solu-Medrol 60 mg and Cardizem 180 mg daily. 11/27/2020 Patient still with dyspnea and coughing with decreased air entry on both lungs. Sputum culture is growing gram-negative bacilli, final result is pending. Currently on Zithromax. Follow-up sputum culture and check chest x-ray tomorrow Also patient using a BiPAP machine for his acute COPD exacerbation, continue Solu-Medrol, patient will need a VATS machine upon discharge per pulmonology recommendation. Currently at baseline oxygen saturation 90s on 4 L oxygen Sodium is trending down to 126, keep monitoring, while carbonic backside improved to 34. WBC is stable at 13 while patient is on steroids. Prognosis remains guarded 11/28/2020 Clinically he is the same he still with some dyspnea with baseline oxygen at 4 L/m, he used this new small BiPAP machine at bedside little bit twice last night and early this morning. He did not like it much but he is willing to continue using it when needed. Repeat chest x-ray showing COPD with scattered interstitial infiltrates throu ghout both lung miles. When i reviewed The chest x-ray by myself it looks slightly worse compared to 3 days ago. Sputum culture is growing gram negative bacilli with final results pending, patient is currently on Zithromax. However patient as well as by pulmonary team, it looks his stable from their perspective and he keeps improving and possible discharge in 24-48 hours. Cardiology are following the patient for new onset A. fib, rate controlled and leader tier team signed off the case. Sodium is stable at 128. Glucose is still slightly elevated while he is on steroids. 11/29/2020 Patient clinically same with limited air entry needing BiPAP machine during the night.Oxygen requirements are the same at 4 L/m. Chest x-ray from yesterday showing COPD with scattered interstitial infiltrates throughout both lung miles with sputum culture growing Pseudomonas patient currently has Pseudomonas pneumonia and his antibiotic was switched from Zithromax to cefepime and kept in the hospital. Patient sodium is 128 today. Patient continued on Eliquis consulate withdrawal 60 mg. Objective - Vital Signs Vital signs: Vital Signs Temp 98 F 11/29/20 23:38 Pulse 87 11/29/20 23:38 Resp 22 11/29/20 23:38 BP 162/71 11/29/20 23:38 Pulse Ox 92 L 11/29/20 23:38 Intake & Output 11/29/20 11/29/20 11/30/20 06:59 18:59 06:59 Intake Total 250 1400 240 Output Total 1200 Balance -950 1400 240 Weight 69.3 kg 69.3 kg Intake: IV 20 Invasive Line 3 20 Oral 250 1380 240 Output: Urine 1200 Other: Voiding Method Toilet Toilet Urinal Urinal # Voids 1 1 - Exam GENERAL: The patient is alert and oriented x3, not in any acute distress. Well developed, well nourished. HEENT: Pupils are round and equally reacting to light. EOMI. No scleral icterus. No conjunctival pallor. Normocephalic, atraumatic. No pharyngeal erythema. No thyromegaly. CARDIOVASCULAR: S1 and S2 present. No murmurs, rubs, or gallops. -PULMONARY: Chest is clear to auscultation, no wheezing or crackles. Decreased air entry on both sides ABDOMEN: Soft, nontender, nondistended, normoactive bowel sounds. No palpable organomegaly. MUSCULOSKELETAL: No joint swelling or deformity. EXTREMITIES: No cyanosis, clubbing, or pedal edema. NEUROLOGICAL: Gross neurological examination did not reveal any focal deficits. SKIN: No rashes. no petechiae. - Labs CBC & Chem 7: 11/27/20 07:12 11/29/20 07:17 Labs: Abnormal Lab Results - Last 24 Hours (Table) 11/29/20 11/29/20 11/29/20 Range/Units 06:09 07:17 11:37 Sodium 128 L (137-145) mmol/L Chloride 85 L (98-107) mmol/L Carbon Dioxide 40 H (22-30) mmol/L BUN 21 H (9-20) mg/dL Creatinine 0.43 L (0.66-1.25) mg/dL Glucose 146 H (74-99) mg/dL POC Glucose (mg/dL) 159 H 209 H (75-99) mg/dL 11/29/20 11/29/20 Range/Units 16:37 19:53 Sodium (137-145) mmol/L Chloride (98-107) mmol/L Carbon Dioxide (22-30) mmol/L BUN (9-20) mg/dL Creatinine (0.66-1.25) mg/dL Glucose (74-99) mg/dL POC Glucose (mg/dL) 202 H 155 H (75-99) mg/dL Assessment and Plan Assessment: Assessment and plan: -Acute severe end-stage COPD exacerbation in an ex-smoker. on bronchodilators, IV steroids and inhaled steroids.-Slow to respond -Acute Pseudomonas interstitial pneumonia. Started on cefepime be some culture and sensitivity. ID team were consulted -Acute hypoxic hypercapnic respiratory failure secondary to COPD exacerbation. On BiPAP -Chronic hypoxic respiratory failure on 3 his oxygen at home -Alpha-1 antitrypsin deficiency -Essential hypertension, continue with lisinopril -Chronic insomnia continue with melatonin -Mild Hyponatremia with hypervolemia -DVT prophylaxison Lovenox GI prophylaxis: Pepcid Prognosis is guarded
[2020-11-30] MEDS: ALBUTEROL NEBULIZED 2.5 MG/3 ML INHALATION SCH ×6 (02:16→20:26)
[2020-11-30 06:11] LABS: Glucose,Whole Blood 162 mg/dL (75-99)
[2020-11-30] MEDS: PANTOPRAZOLE 40 MG TABLET PO SCH (06:20)
[2020-11-30] MEDS: methylPREDNISolone SOD SUCCI 125 MG/2 ML VIAL IV SCH ×4 (06:20→23:02)
[2020-11-30] MEDS: INSULIN ASPART (NovoLOG) 100 UNIT/ML VIAL SQ SCH ×4 (06:20→20:06)
[2020-11-30] MEDS: MULTIVITAMINS, THERA 1 EACH TAB PO SCH (08:52)
[2020-11-30] MEDS: CEFEPIME 2 GM in SODIUM CHLORIDE 0.9% 100 ML IVPB SCH ×3 (08:52→23:02)
[2020-11-30] MEDS: DILTIAZEM CD 180 MG CAP.ER.24H PO SCH (08:53)
[2020-11-30] MEDS: ASCORBIC ACID 500 MG TAB PO SCH (08:53)
[2020-11-30] MEDS: APIXABAN 5 MG TAB PO SCH ×2 (08:53→20:06)
[2020-11-30] MEDS: FAMOTIDINE 20 MG TAB PO SCH ×2 (08:53→20:06)
[2020-11-30 08:58] LABS: African American GFR (CKD) >90 (>60 ml/min/1.73 sqM); Anion Gap 5 mmol/L; Blood Urea Nitrogen 20 mg/dL (9-20); Calcium 8.2 mg/dL (8.4-10.2); Chloride 88 mmol/L (98-107); Glucose 123 mg/dL (74-99); Magnesium 2.2 mg/dL (1.6-2.3); Non-African American GFR(CKD) >90 (>60 ml/min/1.73 sqM); Potassium 4.2 mmol/L (3.5-5.1); Sodium 133 mmol/L (137-145)
[2020-11-30] MEDS: TRELEGY ELLIPTA INHALATION SCH (09:04)
[2020-11-30 09:06] LABS: Carbon Dioxide 40 mmol/L (22-30)
--- NOTE | 2020-11-30 10:05 | P.PN ---
Subjective This is a pleasant 55-year-old patient of Dr. Irizarry. Urgent Care Physician-Dr. Presley history of alpha-1 antitrypsin deficiency . Patient was admitted to the hospital in October, with end-stage severe COPD exacerbation. Patient was stable when he was discharged. Does have 3 L of oxygen at home. Patient was also not tapering dose of steroids. About a week ago he finished his last dose of prednisone. Symptoms started to get gradually worse. Becoming more and more short of breath. Pulse ox 97% started going down to 192%. Has been having wheezing. Patient always has some green sputum. Appetite is fair No weight loss. No fever no chills. 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 Admitted with acute severe end-stage COPD exacerbation. Put on bronchodilators IV steroids and his steroids. Today-had his breakfast. Short of breath. At rest on BiPAP. Tired Subjective: 11/25/2020 This is a pleasant 55 years old male with multiple medical problems presents with acute COPD exacerbation and acute hypoxic hypercapnic respiratory failure with history of alpha-1 antitrypsin deficiency. Also patient found to have new onset A. fib with RVR. He has chronic leukocytosis in the range of 13-14 K, slightly worse currently but also is on steroids He uses BiPAP machine last night. 2 days ago he was started on performing test which caused his dyspnea to get worse and ALLERGIC reaction is suspected and patient was informed not to use Perforomist in the future and he verbalized understanding. Also he needed more BiPAP yesterday and today. He is using oxygen at home about 3-4 L/m. But he is not using BiPAP at home On examination he still has decreased air entry on both sides. He is saturating 94% on 4 L oxygen via nasal cannula. Which is stable from yesterday. Labs showing improved leukocytosis of 13.5 K. Sodium slightly trending down to 129. Resolved. He is unremarkable. He is Currently covered with Eliquis 5 mg and Cardizem dose increased to 60 mg 3 times a day, also is on Zithromax, salmeterol 60 mg and normal saline at 100 mL per hour. Which is stopped and placed on Lasix 40 mg 1. 11/26/2020 Patient breathing clinically stable and he still on 4 L oxygen via nasal cannula. He does not use his BiPAP machine last night compared to the night before. However his to have limited air entry on both sides. Pulmonary team on the case and the plan and to provide a BiPAP machine or equivalent for him upon discharge. He has COPD exacerbation on the top of his alpha-1 antitrypsin deficiency. Also his been followed by cardiology for new A. fib and currently heart rate is controlled on Cardizem 180 mg daily and Eliquis 5 mg Patient is currently on Zithromax, Eliquis, Solu-Medrol 60 mg and Cardizem 180 mg daily. 11/27/2020 Patient still with dyspnea and coughing with decreased air entry on both lungs. Sputum culture is growing gram-negative bacilli, final result is pending. Currently on Zithromax. Follow-up sputum culture and check chest x-ray tomorrow Also patient using a BiPAP machine for his acute COPD exacerbation, continue Solu-Medrol, patient will need a VATS machine upon discharge per pulmonology recommendation. Currently at baseline oxygen saturation 90s on 4 L oxygen Sodium is trending down to 126, keep monitoring, while carbonic backside improved to 34. WBC is stable at 13 while patient is on steroids. Prognosis remains guarded 11/28/2020 Clinically he is the same he still with some dyspnea with baseline oxygen at 4 L/m, he used this new small BiPAP machine at bedside little bit twice last night and early this morning. He did not like it much but he is willing to continue using it when needed. Repeat chest x-ray showing COPD with scattered interstitial infiltrates throu ghout both lung miles. When i reviewed The chest x-ray by myself it looks slightly worse compared to 3 days ago. Sputum culture is growing gram negative bacilli with final results pending, patient is currently on Zithromax. However patient as well as by pulmonary team, it looks his stable from their perspective and he keeps improving and possible discharge in 24-48 hours. Cardiology are following the patient for new onset A. fib, rate controlled and process consultant team signed off the case. Sodium is stable at 128. Glucose is still slightly elevated while he is on steroids. 11/29/2020 Patient clinically same with limited air entry needing BiPAP machine during the night.Oxygen requirements are the same at 4 L/m. Chest x-ray from yesterday showing COPD with scattered interstitial infiltrates throughout both lung miles with sputum culture growing Pseudomonas patient currently has Pseudomonas pneumonia and his antibiotic was switched from Zithromax to cefepime and kept in the hospital. Patient sodium is 128 today. Patient continued on Eliquis consulate withdrawal 60 mg. 11/30/2020 Patient was a started yesterday on cefepime for Pseudomonas pneumonia on the chest x-ray done on 11/28 there is more infiltrates in the right lower lobe more than the left side which is worsened from just x-ray done on admission however clinically looks the same but still has decreased air entry and he still needs a breathing treatment and BiPAP at night. Patient's on this for liter of oxygen which is baseline. Infectious disease consult was placed Sodium improved 133, carbon dioxide is 40 which is a stable. Currently 8 continue insulin to 60 mg, Eliquis 5 mg for new onset A. fib and also his on Cardizem 180 mg daily Objective - Vital Signs Vital signs: Vital Signs Temp 97.6 F 11/30/20 08:05 Pulse 80 11/30/20 09:40 Resp 20 11/30/20 08:05 BP 130/69 11/30/20 08:05 Pulse Ox 96 11/30/20 08:05 Intake & Output 11/29/20 11/30/20 11/30/20 18:59 06:59 18:59 Intake Total 1400 480 490 Output Total 1275 Balance 1400 -795 490 Weight 69.3 kg 67.4 kg Intake: IV 20 10 Invasive Line 3 20 10 Oral 1380 480 480 Output: Urine 1275 Other: Voiding Method Toilet Urinal # Voids 1 - Exam GENERAL: The patient is alert and oriented x3, not in any acute distress. Well developed, well nourished. HEENT: Pupils are round and equally reacting to light. EOMI. No scleral icterus. No conjunctival pallor. Normocephalic, atraumatic. No pharyngeal erythema. No thyromegaly. CARDIOVASCULAR: S1 and S2 present. No murmurs, rubs, or gallops. -PULMONARY: Chest is clear to auscultation, no wheezing or crackles. Decreased air entry on both sides ABDOMEN: Soft, nontender, nondistended, normoactive bowel sounds. No palpable organomegaly. MUSCULOSKELETAL: No joint swelling or deformity. EXTREMITIES: No cyanosis, clubbing, or pedal edema. NEUROLOGICAL: Gross neurological examination did not reveal any focal deficits. SKIN: No rashes. no petechiae. - Labs CBC & Chem 7: 11/27/20 07:12 11/30/20 07:27 Labs: Abnormal Lab Results - Last 24 Hours (Table) 11/29/20 11/29/20 11/29/20 Range/Units 11:37 16:37 19:53 Sodium (137-145) mmol/L Chloride (98-107) mmol/L Carbon Dioxide (22-30) mmol/L Creatinine (0.66-1.25) mg/dL Glucose (74-99) mg/dL POC Glucose (mg/dL) 209 H 202 H 155 H (75-99) mg/dL Calcium (8.4-10.2) mg/dL 11/30/20 11/30/20 Range/Units 06:09 07:27 Sodium 133 L (137-145) mmol/L Chloride 88 L (98-107) mmol/L Carbon Dioxide 40 H (22-30) mmol/L Creatinine 0.58 L (0.66-1.25) mg/dL Glucose 123 H (74-99) mg/dL POC Glucose (mg/dL) 162 H (75-99) mg/dL Calcium 8.2 L (8.4-10.2) mg/dL Assessment and Plan Assessment: Assessment and plan: -Acute severe end-stage COPD exacerbation in an ex-smoker. on bronchodilators, IV steroids and inhaled steroids.-Slow to respond -Acute Pseudomonas interstitial pneumonia. Started on cefepime be some culture and sensitivity. ID team were consulted -Acute hypoxic hypercapnic respiratory failure secondary to COPD exacerbation. On BiPAP -Chronic hypoxic respiratory failure on 3 his oxygen at home -Alpha-1 antitrypsin deficiency -Essential hypertension, continue with lisinopril -Chronic insomnia continue with melatonin -Mild Hyponatremia with hypervolemia -DVT prophylaxison Lovenox GI prophylaxis: Pepcid Prognosis is guarded
[2020-11-30 12:12] LABS: Glucose,Whole Blood 173 mg/dL (75-99)
[2020-11-30] MEDS: lisinopriL 10 MG TAB PO SCH (12:35)
[2020-11-30 17:27] LABS: Glucose,Whole Blood 261 mg/dL (75-99)
--- NOTE | 2020-11-30 17:55 | XR ---
EXAMINATION TYPE: XR chest 2V DATE OF EXAM: 11/30/2020 COMPARISON: 11/28/2020 HISTORY: Follow-up pneumonia TECHNIQUE: 2 views FINDINGS: Heart and mediastinum are normal. There is some diffuse pulmonary interstitial pneumonia. T here is small right pleural effusion. There are no hilar masses. IMPRESSION: Pulmonary interstitial pneumonia is improved compared to last exam. Normal heart.
--- NOTE | 2020-11-30 18:03 | P.PN ---
Subjective Progress Note Date: 11/30/20 Principal diagnosis: Acute exacerbation of severe COPD with acute on chronic hypoxic and hypercapnic respiratory failure 5-year-old white male patient with history of severe COPD/emphysema, alpha-1 antitrypsin deficiency,, with baseline FEV1 of 19% of predicted and severe diffusion abnormality of 40% of predicted. Patient was recently hospitalized 10/27/2020 through 11/01/2020 for acute exacerbation of severe COPD. Up until his recent hospitalization patient was not requiring home oxygen however he was sent home on home oxygen after his last admission on 3 L. In addition patient was to complete 16 day course of prednisone taper, he was sent home on nebulized DuoNeb, Perforomist, he had already been taken Trelegy Ellipta [id number] one puff inhalation daily. Patient is an ex-smoker, however has not smoked 1 year, prior to that smoked for 36 years pack a day, in addition had smoked marijuana. His other medical history hypertension, his blood pressure medication had to be by his primary care physician Dr. Irizarry. Patient's blood pressure was running low, and his lisinopril dose was dropped from 20 mg to 5 mg daily. On 11/22/2020 patient was brought to the emergency department per EMS for severe respiratory distress, worsening hypoxia and dyspnea. Patient's is at the bedside, and providing us a history. She stated that about a week ago patient had seen Dr. Irizarry in follow-up, and he had just completed his prednisone taper and after that his symptoms of worsening dyspnea and hypoxia seemed to worsen. He was increasingly more short of breath, off, he is bringing up some greenish colored sputum. He is complaining of some chest wall soreness from coughing in the anterior sternal bone, which is reproducible with palpation. He tested negative for COVID 19. His chest x-ray showed emphysema and standard lung volumes, no airspace consolidation, but showing some interstitial prominence, he was in significant respiratory distress on arrival he was placed on BiPAP support with pressures of 15 and 6 and FiO2 of 40%, his blood gas showed pO2 of 64, pCO2 of 104, and pH of 7.23, consistent with acute on chronic hypercapnic and hypoxic respiratory failure. She was started on IV steroids, empiric antibiotics, breathing treatments, he is feeling much better today, he is awaiting a bed on selective care in the emergency department, he is currently off BiPAP support and on 5 L of oxygen his pulse ox of 96%, afebrile, eating easier today, however still has some coarse diffuse crackles on physical exam On 11/24/2020 the patient is being seen for a follow-up. As mentioned earlier, he is a case of severe COPD. He was in slight for an acute COPD exacerbation. Earlier this morning, after receiving a Perforomist nebulized treatment, the patient became acutely short of breath bronchospastic and wheezy and is quite anxious. Accordingly, he was placed on a BiPAP at current pressure is 14/5 cm of water. I dropped the inspiratory time down to 0.6 and the patient is feeling better. Is urinating a tidal volume of 800 with a respiratory rate of 23. He was using excessive muscle breathing and his slightly more comfortable at this point in time. He is still anxious. He is actively bronchospastic and wheezy and there is marked diminished breath sounds bilaterally. No chest pain. He is also crackling in the lung bases bilaterally. He thinks it performance could have caused this acute bronchospasm On 11/25/2020, the patient is still having reactions even to DuoNeb and based on that I switched him on his albuterol nebulized treatments around the clock. He remains on IV Solu-Medrol. He remains on BiPAP. I further switched him to a AVAPS mode with a target tidal volume of 600 and the patient is feeling better with that. He was given a dose of Lasix and producing adequate amount of urine output. Otherwise, he is doing well. No specific complaints. No chest pain. no Altered mentation. He is a negative fluid balance since yesterday. Blood work shows no major abnormalities. 11/26/2020 the patient is feeling much better. He slept all night without his BiPAP and currently is on 40s about 2 by nasal cannula. He is able to speak longer sentences. No chest pain. No altered mentation. No synovitis sputum production. He continues to have a congested cough. Note that I switched him to a AVAPS mode yesterday with a tidal volume target of 600 mL. No other new complaints otherwise for now. he is on albuterol neb last treatment [id number] 4 times a day. He is also on IV Solu-Medrol 60 mg every 6 hours. 11/27/2020 the patient is being seen for a follow-up. He was on 4 L of oxygen by nasal cannula and today he is still on 4 L. He is using the AV avaps machine overnight. He is doing well for now. No significant chest pain. He is still short of breath with limited amount of activity and sometimes at rest. Overall, improving. Note that due to shortage of her respirators, the patient was taken off the AVAPS machine and he was given a O2 BiPAP machine if he is using overnight. He prefers the first. His sodium level today the 126. We'll proceed with some fluid restrictions. Is on IV Solu-Medrol at a dose of 60 mg every 6 hours. He is also on albuterol nebulized treatments 4 times a day. Unable to tolerate other nebulizer medications.. He brought Trelegy Ellipta from home which she uses it once a day. The IV Fluids to KVO. 11/28/2020, the patient remains on 4 L of oxygen by nasal cannula. Utilizing a automatic BiPAP machine overnight.. The patient is still having some limited cough and some congestion. Overall condition is improved with a combination of steroids. He was able to get fistula GE from home and he is using it once a day. Overnight he is also using the BiPAP. I will say he has responded significantly to systemic steroids and the treatment we've offered to him here in the hospital. He is getting reactions hours Perforomist and Pulmicort and b oth of those have been discontinued for now. Is tolerating his diet. The sodium level is also improving. His Current IV is at KVO. The patient is seen today 11/29/2020 in follow-up on the regular medical floor. He is currently sitting up at the bedside. Awake and alert in no acute distress. Breathing a bit easier today compared to yesterday. He is maintaining O2 saturations in the 90s on 4 L/m per nasal cannula. He did utilize automatic BiPAP machine overnight. Still quite dyspneic with minimal exertion. Sputum culture was positive for pseudomonas aeruginosa. Sodium 128. Potassium 4.8. Creatinine 0.43. He is currently on azithromycin, bronchodilators, IV Solu-Medrol, home Trelegy. Patient was reevaluated today on 11/30/2020, patient is being considered for discharge, however he needed a midline, and he needs to be sent home on antibiotics for his pseudomonal infection, and this will likely be cefepime. Patient was seen by infectious disease on consultation, and I believe the recommendation was to send him home on IV antibiotics. 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 carey on outpatient basis and possibly consider sending him down to the [facility] eventually to be considered for lung transplant. Objective - Vital Signs Vital signs: Vital Signs Temp 98.6 F 11/30/20 16:41 Pulse 70 11/30/20 16:41 Resp 20 11/30/20 16:41 BP 118/72 11/30/20 16:41 Pulse Ox 94 L 11/30/20 16:41 Intake & Output 11/29/20 11/30/20 11/30/20 18:59 06:59 18:59 Intake Total 5671 977 2903 Output Total 1275 Balance 1400 -795 1100 Weight 69.3 kg 67.4 kg Intake: IV 20 20 Invasive Line 3 20 20 Oral 1475 903 1227 Output: Urine 1275 Other: Voiding Method Toilet Urinal # Voids 1 - Exam GENERAL EXAM: Alert, very pleasant, 55-year-old patient, on 4 L nasal cannula, breathing is comfortable. He is not using excessive muscle breathing. Much improved. HEAD: Normocephalic/atraumatic. EYES: Normal reaction of pupils, equal size. Conjunctiva pink, sclera white. NOSE: Clear with pink turbinates. THROAT: No erythema or exudates. NECK: No masses, no JVD, no thyroid enlargement, no adenopathy. CHEST: No chest wall deformity. Symmetrical expansion. Some mild tenderness to palpation over sternal area with coughing, reproducible LUNGS: Equal air entry with diffuse coarse crackles, anteriorly and posteriorly, overall diminished breath sounds bilaterally CVS: Regular rate and rhythm, normal S1 and S2, no gallops, no murmurs, no rubs ABDOMEN: Soft, nontender. No hepatosplenomegaly, normal bowel sounds, no guarding or rigidity. EXTREMITIES: No clubbing, no edema, no cyanosis, 2+ pulses and upper and lower extremities. MUSCULOSKELETAL: Muscle strength and tone normal. SPINE: No scoliosis or deformity SKIN: No rashes CENTRAL NERVOUS SYSTEM: Alert and oriented -3. No focal deficits, tone is normal in all 4 extremities. PSYCHIATRIC: Alert and oriented -3. Appropriate affect. Intact judgment and insight. - Labs CBC & Chem 7: 11/27/20 07:12 11/30/20 07:27 Labs: Abnormal Lab Results - Last 24 Hours (Table) 11/29/20 11/30/20 11/30/20 Range/Units 19:53 06:09 07:27 Sodium 133 L (137-145) mmol/L Chloride 88 L (98-107) mmol/L Carbon Dioxide 40 H (22-30) mmol/L Creatinine 0.58 L (0.66-1.25) mg/dL Glucose 123 H (74-99) mg/dL POC Glucose (mg/dL) 155 H 162 H (75-99) mg/dL Calcium 8.2 L (8.4-10.2) mg/dL 11/30/20 11/30/20 Range/Units 11:35 17:00 Sodium (137-145) mmol/L Chloride (98-107) mmol/L Carbon Dioxide (22-30) mmol/L Creatinine (0.66-1.25) mg/dL Glucose (74-99) mg/dL POC Glucose (mg/dL) 173 H 261 H (75-99) mg/dL Calcium (8.4-10.2) mg/dL Assessment and Plan Assessment: Impression: Acute on chronic hypoxic and hypercapnic respiratory failure secondary to severe COPD and possibly acute mild diastolic congestive heart failure Pseudomonas aeruginosa tracheobronchitis. Severe COPD FEV1 is in the range of 20%. Alpha-1 antitrypsin deficiency [id number] smoking history Chronic hypoxic respiratory failure Benign essential hypertension Recommendation: Continue present course of treatment Continue cefepime and arrange for home IV antibiotics via midline. Patient will be cleared from my perspective for discharge home if cleared by oth er consultants including infectious disease on the case. Patient is to follow up on outpatient basis with Dr. Morris post discharge Time with Patient: Less than 30
[2020-11-30] MEDS: SODIUM CHLORIDE 0.9% 1,000 ML IV SCH (19:45)
[2020-11-30 19:57] LABS: Glucose,Whole Blood 229 mg/dL (75-99)
[2020-11-30] MEDS: MIRTAZAPINE 15 MG TAB PO SCH (20:06)
[2020-11-30] MEDS: ATORVASTATIN 40 MG TAB PO SCH (20:06)
--- NOTE | 2020-11-30 23:37 | CONS ---
CONSULTATION DATE OF SERVICE: 11/30/2020 REASON FOR CONSULTATION: Positive sputum culture with pseudomonas x2. HISTORY OF PRESENT ILLNESS: The patient is a 55-year-old male with a past medical history significant for COPD, emphysema, alpha-1 antitrypsin deficiency and history of some deficiency in this patient who was recently hospitalized at this facility from October 27 until November 01 for acute exacerbation of COPD. The patient was subsequently stabilized and discharged home. The patient is being brought back to the hospital for severe respiratory distress on November 22, 2020. The patient has been complaining of increased shortness of breath on minimal exertion even at rest. The patient also has a cough which has been moderate intensity, bringing up some green sputum. The patient denies having any hemoptysis. Has been complaining of some chest wall pain from coughing. No nausea, no vomiting, no abdominal pain or diarrhea. The patient has been evaluated by the pulmonary service. The patient did have a chest x-ray on admission. No change from prior exam note. Note this does not exclude COVID-19. Patient did have negative COVID testing. The patient did not have any fever during this hospital stay. The patient did have a white count of 15.7 admission. Patient recently completed a course of steroid in the outpatient setting. Subsequently, white count of 19.2 and the repeat is 13.3 as of 11/27. The patient did have a normal creatinine. Sputum cultures were collected on 11/24, about a week ago, and it apparently was reported yesterday with pseudomonas 2 strains. One of them is sensitive to Cipro. The one is not sensitive to Cipro. The patient was treated with Zithromax, which was discontinued. He was started on cefepime and Infectious Disease was consulted for further management of antibiotic therapy. The patient is still complaining of shortness of breath with minimal exertion, complaining of greenish sputum. No hemoptysis. No nausea, vomiting, abdominal pain, no diarrhea. REVIEW OF SYSTEMS: Positive points have been mentioned in HPI. Rest of systems are negative. PAST MEDICAL HISTORY: Asthma, COPD, alpha-1 antitrypsin insufficiency, hypertension. PAST SURGICAL HISTORY: Tonsillectomy and colonoscopy. SOCIAL HISTORY: Remote history of smoking no drinking drug use. FAMILY HISTORY: Mother with history of hypertension. Father history of CVA and TIA. ALLERGIES: PENICILLIN, AMPICILLIN. He has tolerated cefepime without any problem. MEDICATIONS: The patient is currently on albuterol, Xanax, Eliquis, vitamin C, Lipitor, cefepime 2 grams q.8. He is on Cardizem, Pepcid, NovoLog, Zestril, Imodium, Solu-Medrol, Remeron, morphine sulfate, Theragran, Trelegy, Protonix. PHYSICAL EXAMINATION: Blood pressure 119/72 with a pulse of 70, temperature 98.6. He is 94% on 4 L nasal cannula. General description is a middle-aged male lying in bed in no distress. No tachypnea or accessory muscles of respiration use. HEENT: Examination shows no pallor or scleral icterus. Oral mucous membrane is moist. NECK: Trachea is central. No thyromegaly. LUNGS: Unlabored breathing. Decreased intensity of breath sounds. No wheeze. HEART: S1, S2. Regular rate and rhythm. EXTREMITIES: No edema of the feet. SKIN EXAMINATION: No rash or mass palpable. Neurologically the patient is awake, alert, oriented x3. Mood and affect normal. LABS: No new labs have been obtained today. His white count was 13.6 as of 11/27. BUN of 20, creatinine 0.58. The patient did have a CRP of 144 on admission. His procalcitonin was normal on admission of 0.07 and not repeated since then. Chest x-ray last done on 11/28: Hyperinflation COPD; scattered airspace infiltrate throughout both lung miles persists. DIAGNOSTIC IMPRESSION AND PLAN: Patient presented to hospital with acute COPD exacerbation in this patient who did have a possible tracheobronchitis. The patient is clinically not behaving as pneumonia in a patient with no fever. He did have elevated white count on admission, could be related to the steroids was on in the outpatient setting. A chest x-ray did not show any evidence of consolidation. PLAN: 1. We will repeat a CRP and procalcitonin level. 2. Repeat chest x-ray PA and lateral. 3. The patient to continue cefepime 2 grams q.8 hours. The patient was offered a short course of IV cefepime in the outpatient setting. However, the patient has been concerned about the cost associated with it. There is an option of oral Cipro; however, we have to keep in mind one of the organism is not sensitive to it and may fail oral Cipro therapy. 4. Will follow on clinical condition as well as these investigations to further adjust medication if needed. Thank you for this consultation. Will follow this patient along with you. AUSTIN / KOJON: [id number] / MTDD
[2020-12-01] MEDS: ALBUTEROL NEBULIZED 2.5 MG/3 ML INHALATION SCH ×5 (00:37→15:30)
[2020-12-01 04:26] VITALS: RESP 20
[2020-12-01 06:08] LABS: Glucose,Whole Blood 150 mg/dL (75-99)
[2020-12-01] MEDS: methylPREDNISolone SOD SUCCI 125 MG/2 ML VIAL IV SCH ×2 (06:21→12:30)
[2020-12-01] MEDS: PANTOPRAZOLE 40 MG TABLET PO SCH (06:22)
[2020-12-01] MEDS: INSULIN ASPART (NovoLOG) 100 UNIT/ML VIAL SQ SCH ×2 (06:22→12:30)
[2020-12-01] MEDS: APIXABAN 5 MG TAB PO SCH (08:57)
[2020-12-01] MEDS: MULTIVITAMINS, THERA 1 EACH TAB PO SCH (08:57)
[2020-12-01] MEDS: ASCORBIC ACID 500 MG TAB PO SCH (08:57)
[2020-12-01] MEDS: TRELEGY ELLIPTA INHALATION SCH (08:58)
[2020-12-01] MEDS: DILTIAZEM CD 180 MG CAP.ER.24H PO SCH (08:58)
[2020-12-01] MEDS: CEFEPIME 2 GM in SODIUM CHLORIDE 0.9% 100 ML IVPB SCH (08:58)
[2020-12-01] MEDS: FAMOTIDINE 20 MG TAB PO SCH (08:58)
[2020-12-01 11:46] LABS: Glucose,Whole Blood 331 mg/dL (75-99)
[2020-12-01] MEDS: lisinopriL 10 MG TAB PO SCH (12:31)
[2020-12-01] MEDS: SODIUM CHLORIDE 0.9% 1,000 ML IV SCH (14:13)
--- NOTE | 2020-12-01 14:21 | PN ---
PROGRESS NOTE DATE OF SERVICE: 12/01/2020 REASON FOR FOLLOWUP: Pseudomonas tracheobronchitis. INTERVAL HISTORY: The patient was seen on rounds this morning. The patient has been afebrile. The patient overall is feeling better. He is breathing comfortably. Denies having any chest pain or shortness of breath or cough. No abdominal pain or diarrhea. PHYSICAL EXAMINATION: Blood pressure 145/72 with a pulse of 82, temperature 97.6. He is 96% on 4 L nasal cannula. General description is a middle-aged male up in the room in no distress. RESPIRATORY SYSTEM: Unlabored breathing, decreased intensity of breath sounds. No wheeze. HEART: S1, S2. Regular rate and rhythm. ABDOMEN: Soft, no tenderness. LABS: Procalcitonin came back as 0.03. CRP of less than 5. DIAGNOSTIC IMPRESSION AND PLAN: Patient with positive Pseudomonas in the sputum two strains, question of possible colonization versus tracheobronchitis. The patient is clinically not behaving as pneumonia. Chest x-ray also shows some interstitial infiltrate that has improved; however, the patient has got Midline being ordered by the COMMUNITY HEALTH EDUCATOR and the window caser and the patient antibiotic has been arranged for him even though he need workup. Continue with cefepime for about a week and close outpatient followup for possible tracheobronchitis. MMODL / IJN: [id number] / JO
[2020-12-01] MEDS ORDERED: CEFEPIME 2 GM in SODIUM CHLORIDE 0.9% 100 ML IVPB ONE (16:00)
[2020-12-01 16:10] VITALS: BP 129/86; PULSE 87; TEMP 97.2
[2020-12-01 16:48] LABS: Glucose,Whole Blood 139 mg/dL (75-99)
--- NOTE | 2020-12-01 23:19 | P.DS ---
Providers Date of admission: 11/23/20 01:58 Attending physician: Rigo Solomon Consults: 11/23/20 01:58 Consult Physician Routine Consulting Provider: Simon Gaytan Consult Reason/Comments: copd Do you want consulting provider notified?: Yes 11/29/20 16:33 Consult Physician Routine Consulting Provider: Denny Trinidad Consult Reason/Comments: Pseudomonas x 2/sputum Do you want consulting provider notified?: Yes Primary care physician: Wolf Irizarry Hospital Course: Diagnoses: -Acute severe end-stage COPD exacerbation in an ex-smoker. on bronchodilators, IV steroids and inhaled steroids.-Slow to respond -Acute Pseudomonas interstitial pneumonia versus tracheobronchitis. Started on cefepime be some culture and sensitivity. Discharge on IV cefepime for 8 days -Acute hypoxic hypercapnic respiratory failure secondary to COPD exacerbation. Continue with tapered steroids upon discharge -Chronic hypoxic respiratory failure on 3 his oxygen at home -Alpha-1 antitrypsin deficiency -Essential hypertension, continue with lisinopril -Chronic insomnia continue with melatonin Hospital course: This is a pleasant 55 years old male with multiple medical problems presents with acute COPD exacerbation and acute hypoxic hypercapnic respiratory failure with history of alpha-1 antitrypsin deficiency. Also patient found to have new onset A. fib with RVR. He has chronic leukocytosis in the range of 13-14 K, slightly worse currently but also is on steroids. Patient has been evaluated and followed closely by sonography technician, he was slowly to respond to therapy and he has to be placed on BiPAP at night frequently to help him breathing despite being on 4 L OXYGEN which is his home dose and baseline. Whitewasher recommended a breathing machine which is delivered for him at home. Better on sputum culture came back positive for pseudomonas of 2 kinds. Chest x-ray was low suspicion for pneumonia per sonography technician and infectious disease, colonization versus tracheal bronchitis is suspected and cefepime was started however patient stated today he feels better after starting the antibiotic. No other symptoms, no chest pain or change in urine or bowel habits. No fever. Tolerating diet well. patient was insistent on leaving today Also patient found to have with A. fib and RVR, patient was started on Eliquis and he agrees with the co-pay. Also his rate is controlled with Cardizem. Cardiology evaluated the patient and cleared him for discharge Patient was cleared for discharge by pulmonary and infectious disease team Problems and management plan were discussed with the patient and he verbalized understanding and acceptance Patient was found stable and can be discharged home and guarded prognosis however he needs follow-up as an outpatient. Patient was instructed to follow up with PCP Dr. Irizarry within one week and patient agrees Patient was instructed to follow up with ID team Dr. Trinidad in one week and pulmonary service Dr. Corbin in 3-4 weeks and he agrees. Also patient was instructed to follow up with diversified crops farmworker Dr. Alonso in 4 weeks and he agrees Physical exam Gen: patient is a AAOx3, no distress CVS: S1-S2, RRR, no murmur Lungs: B/L CTA, no wheezing. Decreased air entry in both lung miles, improved upon discharge Abdomen: soft, no distention, no tenderness, positive bowel sounds Extremity: no leg edema or induration Time spent more than 35 minutes Patient Condition at Discharge: Serious Plan - Discharge Summary New Discharge Prescriptions: New Cefepime [Maxipime] 2 gm IVPB Q12H #16 bag Atorvastatin [Lipitor] 40 mg PO HS #14 tab Apixaban [Eliquis] 5 mg PO BID #60 tab Diltiazem Cd [Cardizem CD] 180 mg PO DAILY #30 cap.er.24h predniSONE 0 mg PO DIRECTED #30 tab Famotidine [Pepcid] 20 mg PO BID #60 tablet Continue lisinopriL [Zestril] 20 mg PO DAILY@1400 Fluticasone/Umeclidin/Vilanter [Trelegy Ellipta 100-62.5-25] 1 puff INH ALATION RT-DAILY Albuterol Sulfate [Ventolin HFA] 2 puff INHALATION RT-Q4H PRN PRN Reason: Shortness Of Breath Albuterol Nebulized [Ventolin Nebulized] 2.5 mg INHALATION RT-TID PRN PRN Reason: Shortness Of Breath Multivitamins, Thera [Multivitamin (formulary)] 1 tab PO DAILY Ascorbic Acid [Vitamin C] 500 mg PO DAILY Ipratropium-Albuterol Nebulize [Duoneb 0.5 mg-3 mg/3 ml Soln] 3 ml INHALATION RT-QID #100 ml Famotidine [Pepcid] 20 mg PO BID #60 tablet Formoterol Fumarate [Perforomist] 20 mcg INHALATION RT-BID Mirtazapine [Remeron] 15 mg PO HS Discharge Medication List Albuterol Nebulized [Ventolin Nebulized] 2.5 mg INHALATION RT-TID PRN 02/18/20 [History] Albuterol Sulfate [Ventolin HFA] 2 puff INHALATION RT-Q4H PRN 02/18/20 [History] Fluticasone/Umeclidin/Vilanter [Trelegy Ellipta 100-62.5-25] 1 puff INHALATION RT-DAILY 02/18/20 [History] lisinopriL [Zestril] 20 mg PO DAILY@1400 02/18/20 [History] Ascorbic Acid [Vitamin C] 500 mg PO DAILY 10/27/20 [History] Multivitamins, Thera [Multivitamin (formulary)] 1 tab PO DAILY 10/27/20 [History] Famotidine [Pepcid] 20 mg PO BID #60 tablet 11/01/20 [Rx] Ipratropium-Albuterol Nebulize [Duoneb 0.5 mg-3 mg/3 ml Soln] 3 ml INHALATION RT-QID #100 ml 11/01/20 [Rx] Formoterol Fumarate [Perforomist] 20 mcg INHALATION RT-BID 11/23/20 [History] Apixaban [Eliquis] 5 mg PO BID #60 tab 11/24/20 [Rx] Mirtazapine [Remeron] 15 mg PO HS 11/27/20 [History] Cefepime [Maxipime] 2 gm IVPB Q12H #16 bag 11/30/20 [Rx] Atorvastatin [Lipitor] 40 mg PO HS #14 tab 12/01/20 [Rx] Diltiazem Cd [Cardizem CD] 180 mg PO DAILY #30 cap.er.24h 12/01/20 [Rx] Famotidine [Pepcid] 20 mg PO BID #60 tablet 12/01/20 [Rx] predniSONE 0 mg PO DIRECTED #30 tab 12/01/20 [Rx] Follow up Appointment(s)/Referral(s): Noé Starks MD [STAFF PHYSICIAN] - 4 Weeks (Cardiology- Office will call you with a follow up appointment. ) Wolf Irizarry MD [Primary Care Provider] - 12/08/20 11:40 am [facility], [NON-STAFF] - [facility], [REFERRING] - Denny Trinidad MD [STAFF PHYSICIAN] - 12/07/20 4:00 pm Simon Gaytan MD [STAFF PHYSICIAN] - 12/30/20 1:15 pm Ambulatory/Diagnostic Orders: Basic Metabolic Panel [LAB.AMB] Location: None Selected Complete Blood Count w/diff [LAB.AMB] Location: None Selected Patient Instructions/Handouts: A-fib (Atrial Fibrillation) (DC), COPD (Chronic Obstructive Pulmonary Disease) (ED), Safe Use of Anticoagulants (DC) Activity/Diet/Wound Care/Special Instructions: Eliquis filled at [facility] [place].meay will be $50 - pharmacy to give pt $10 copay card please discontinue with mid-line after finish intravenous antibiotics heart healthy diet activity is restricted till you see your doctor Discharge Disposition: HOME WITH HOME HEALTH SERVICES
--- NOTE | 2020-12-02 14:34 | CDI ---
Documentation Clarification Form Date: 12/02/20 From: Sury Granger Phone: Admit Date: 11/23/2020 01:58:00 AM Patient Name: Mervin Daigle Visit Number: [id number] Discharge Date: 12/01/2020 05:31:00 PM ATTENTION: The Clinical Documentation Specialists (CDI) and [facility] Coding Staff appreciate your assistance in clarifying documentation. Please respond to the clarification below the line at the bottom and electronically sign. The CDI & [facility] Coding staff will review the response and follow-up if needed. Please note: Queries are made part of the Legal Health Record. If you have any questions, please contact the author of this message via ITS. Dr. Noé Starks, Atrial Fibrillation is documented in your consult, several PNs and DS. Additional clarification regarding the type of atrial fibrillation is requested. History/Risk Factors: acute on chronic hypoxic and hypercapnic respiratory failure, emphysema, pseudomonal pneumonia, acute on chronic diastolic CHF w HTN, pulm htn, tricuspid insufficiency Clinical Indicators: New onset atrial fibrillation with mildly rapid ventricular rates 11/23 EKG/telemetry: atrial fibrillation with rapid ventricular response, vent rate 107 bpm, QRS 100 ms, QT/QTc 320/427 ms Treatment: Cardizem Cd 180 po daily, Eliquis 5 mg po BID Please clarify the type of atrial fibrillation, if known: Chronic Permanent Paroxysmal Persistent, longstanding Persistent, other Persistent, permanent Other, please specify Unable to determine MTDD
== END 2020-12-01 17:31 | disposition home health service (06) | DRG 177 ==
LOC: EC 23:23 → 3SCARD 11-23 01:58
PROVIDERS: ADMIT Hospitalist; ATTEND Hospitalist
PROC: 5A09557 Assistance with Respiratory Ventilation, Greater than 96 Consecutive Hours, Continuous Positive Airway Pressure (ICD-10-PCS; principal; 2020-11-27)
PROC: 05HC33Z Insertion of Infusion Device into Left Basilic Vein, Percutaneous Approach (ICD-10-PCS; 2020-11-30 10:10)
DX: J15.1 Pneumonia due to Pseudomonas (principal); J96.21 Acute and chronic respiratory failure with hypoxia; J96.22 Acute and chronic respiratory failure with hypercapnia; I50.33 Acute on chronic diastolic (congestive) heart failure; E87.1 Hypo-osmolality and hyponatremia; J84.9 Interstitial pulmonary disease, unspecified; I27.20 Pulmonary hypertension, unspecified; E88.01 Alpha-1-antitrypsin deficiency; I11.0 Hypertensive heart disease with heart failure; J43.9 Emphysema, unspecified; Z20.822 Contact with and (suspected) exposure to COVID-19; I07.1 Rheumatic tricuspid insufficiency; E78.5 Hyperlipidemia, unspecified; F41.9 Anxiety disorder, unspecified; T38.0X5A Adverse effect of glucocorticoids and synthetic analogues, initial encounter; F51.04 Psychophysiologic insomnia; Z99.81 Dependence on supplemental oxygen; Z79.51 Long term (current) use of inhaled steroids; Z79.899 Other long term (current) drug therapy; Z87.891 Personal history of nicotine dependence; Z90.89 Acquired absence of other organs; Z87.19 Personal history of other diseases of the digestive system; Z98.890 Other specified postprocedural states; Z88.0 Allergy status to penicillin; Z88.8 Allergy status to other drugs, medicaments and biological substances; Z82.49 Family history of ischemic heart disease and other diseases of the circulatory system; Z82.61 Family history of arthritis; Z82.3 Family history of stroke; I48.91 Unspecified atrial fibrillation
CPT/HCPCS: 36410; 36415; 36600; 71045; 71046; 76937; 80048; 80053; 80061; 82805; 83605; 83615; 83735; 83880; 84145; 84443; 85025; 85610; 85730; 86140; 87070; 87077; 87186; 87205; 87635; 93005; 94640; 94644; 94660; 94760; 96360; 99285; 99291

== ENCOUNTER → 2021-01-06 | Outpatient (CLI) | payer OTHER ==
--- NOTE | 2021-01-07 04:35 | CT ---
EXAMINATION TYPE: CT chest wo con DATE OF EXAM: 01/06/2021 COMPARISON: None HISTORY: Dyspnea. CT DLP: 691.9 mGycm Automated exposure control for dose reduction was used. Images were obtained from the thoracic inlet to the diaphragm without contrast. There is pulmonary hy perinflation and flattening of the diaphragm. There is diffuse pulmonary emphysema. There is some coa rse reticular nodular peripheral pulmonary infiltrates. There is a 4 cm poorly marginated infiltrate posterior to the right pulmonary hilum. There are multiple areas of bronchiectasis. There is dense ca lcification in the pericardium. Heart size is normal. There is no pericardial effusion. There is no p leural effusion. Upper abdominal soft tissues are intact. The thoracic vertebra have normal alignment . There is no compression fracture. Sternum is intact. I see no evidence of a rib fracture. Upper abd ominal soft tissues show 1 mm calculus upper pole left kidney. IMPRESSION: Emphysema. Reticulonodular pulmonary infiltrates probably due to pulmonary fibrosis. There is diffuse bronchiectasis. There is poorly marginated somewhat spiculated infiltrate posterior to the right pulmonary hilum. The appearance is nonspecific. Follow-up is recommended to show clearing.
== END | disposition home or self-care (01) ==
LOC: RADCTMAIN 18:54 → EDSTATUS 19:00
PROVIDERS: ATTEND Internal Medicine Critical Care Medicine
DX: J43.9 Emphysema, unspecified (principal); J47.9 Bronchiectasis, uncomplicated; R91.8 Other nonspecific abnormal finding of lung field
CPT/HCPCS: 71250

== ENCOUNTER → 2021-01-10 | Outpatient (CLI) | payer OTHER ==
[2021-01-10 15:35] LABS: ABG Base Excess 22.5 mmol/L; ABG Oxygen Saturation 80.1 % (94-97); ABG PH 7.41 (7.35-7.45); ABG TCO2 50 mmol/L (19-24); Allen Test Performed? Yes
[2021-01-10 15:43] LABS: ABG PCO2 75 mmHg (35-45); ABG PO2 44 mmHg (83-108)
[2021-01-10 15:44] LABS: ABG HCO3 47 mmol/L (21-25)
== END | disposition home or self-care (01) ==
LOC: LABWHC1 15:06
PROVIDERS: ATTEND Internal Medicine Critical Care Medicine
DX: J44.9 Chronic obstructive pulmonary disease, unspecified (principal)
CPT/HCPCS: 36600; 82805

== ENCOUNTER 2021-01-23 20:45 | Inpatient (IN) | payer OTHER ==
[2021-01-23] MEDS ORDERED: methylPREDNISolone SOD SUCCI 125 MG/2 ML VIAL IV STA (21:38)
[2021-01-23] MEDS ORDERED: ALBUTEROL NEBULIZED 2.5 MG/3 ML INHALATION STA (21:39)
--- NOTE | 2021-01-23 21:43 | ED ---
SOB HPI - General Chief Complaint: Shortness of Breath Stated Complaint: CHERI Time Seen by Provider: 01/23/21 21:26 Source: patient, EMS Mode of arrival: EMS Limitations: no limitations - History of Present Illness Initial Comments: 55-year-old male with history of stage IV alpha trypsin deficiency COPD and oxygen dependent 4 L presenting to the emergency department with a chief complaint shortness of breath. is also present in the room to answer additional questions. States the patient has been hospitalized 3 times over the last 3 months. She she states the patient is currently towards the end of his prednisone steroid taper. States he was midway through an albuterol treatment with no significant improvement in symptoms. Patient reports not able to take a full deep breath. states the patient is a chronic carbon dioxide retainer. Patient reports feeling tight in chest but denies any chest pain. - Related Data Home Medications Medication Instructions Recorded Confirmed Albuterol Nebulized [Ventolin 2.5 mg INHALATION RT-TID PRN 02/18/20 01/23/21 Nebulized] Albuterol Sulfate [Ventolin HFA] 2 puff INHALATION RT-Q4H PRN 02/18/20 01/23/21 Fluticasone/Umeclidin/Vilanter 1 puff INHALATION RT-DAILY 02/18/20 01/23/21 [Trelegy Ellipta 100-62.5-25] Mirtazapine [Remeron] 15 mg PO HS 11/27/20 01/23/21 ALPRAZolam [Xanax] 0.5 mg PO TID PRN 01/23/21 01/23/21 Loratadine [Claritin] 10 mg PO DAILY 01/23/21 01/23/21 Melatonin 5 mg PO HS 01/23/21 01/23/21 predniSONE See Taper PO DIRECTED 01/23/21 01/23/21 Previous Rx's Medication Instructions Recorded Famotidine [Pepcid] 20 mg PO BID #60 tablet 11/01/20 Apixaban [Eliquis] 5 mg PO BID #60 tab 11/24/20 Diltiazem Cd [Cardizem CD] 180 mg PO DAILY #30 cap.er.24h 12/01/20 Allergies Allergy/AdvReac Type Severity Reaction Status Date / Time ampicillin Allergy Unknown Verified 01/23/21 23:08 Childhood formoterol [From Perforomist] Allergy Anaphylaxis Verified 01/23/21 23:15 ipratropium Allergy Anaphylaxis Verified 01/23/21 23:15 Penicillins Allergy Unknown Verified 01/23/21 23:08 Childhood Review of Systems ROS Statement: Those systems with pertinent positive or pertinent negative responses have been documented in the HPI. ROS Other: All systems not noted in ROS Statement are negative. Past Medical History Past Medical History: Asthma, COPD, Hypertension Additional Past Medical History / Comment(s): Bronchitis, Alpha 1 antitrypsin deficiency, pancreatitis. History of Any Multi-Drug Resistant Organisms: None Reported Past Surgical History: Tonsillectomy Additional Past Surgical History / Comment(s): Colonoscopy Past Anesthesia/Blood Transfusion Reactions: No Reported Reaction Past Psychological History: No Psychological Hx Reported Smoking Status: Former smoker - Past Family History Mother Family Medical History: Hypertension Additional Family Medical History / Comment(s): Hip/knee replacements. Mother in her sleep in her 70s. Father Family Medical History: CVA/TIA Additional Family Medical History / Comment(s): Father is . General Exam Limitations: no limitations General appearance: alert, in no apparent distress Head exam: Present: atraumatic, normocephalic, normal inspection Eye exam: Present: normal appearance, PERRL, EOMI Pupils: Present: normal accommodation ENT exam: Present: normal exam, normal oropharynx, mucous membranes moist, TM's normal bilaterally, normal external ear exam Neck exam: Present: normal inspection, full ROM. Absent: tenderness Respiratory exam: Present: respiratory distress (Patient appears to be short of breath. Unable to fully complete a sentence), wheezes (Very faint, diffuse expiratory wheezes). Absent: normal lung sounds bilaterally, rales, rhonchi, stridor Cardiovascular Exam: Present: regular rate, normal rhythm, normal heart sounds. Absent: systolic murmur Extremities exam: Present: normal inspection, full ROM, normal capillary refill. Absent: tenderness Back exam: Present: normal inspection, full ROM. Absent: tenderness, CVA tenderness (R), CVA tenderness (L) Neurological exam: Present: alert, oriented X3 Psychiatric exam: Present: normal affect, normal mood Skin exam: Present: warm, dry, intact, normal color Course Vital Signs 01/23/21 01/23/21 01/23/21 20:49 20:56 22:00 Temperature 98.7 F Pulse Rate 95 96 93 Respiratory 22 22 Rate Blood Pressure 147/86 O2 Sat by Pulse 99 100 Oximetry 01/23/21 01/23/21 22:05 22:40 Temperature Pulse Rate 91 87 Respiratory 22 Rate Blood Pressure 145/55 O2 Sat by Pulse 97 Oximetry Medical Decision Making - Medical Decision Making 55-year-old male presents to emergency Department with a chief complaint of difficulty breathing. On physical examination, patient did appear to be short of breath but his oxygen saturation improved to 94% on 4 L of nasal cannula. He was initially on nonrebreather when brought in via EMS. No significant wheezing on auscultation. Patient is at the end of his steroid taper with no improvement. He is essentially failing outpatient treatment for his COPD. Patient was given 125 mg of Solu-Medrol here along with an albuterol breathing treatment. He is ALLERGIC to the ipratropium in DuoNeb. CBC shows mild anemia with a hemoglobin of 12.6. CMP reveals a carbon dioxide of 40, however this appears to be his baseline. Chest x-ray reveals pulmonary interstitial infiltrates similar to the old exam. Patient sees . I spoke to Paulette Schafer who will admit for . As discussed with - Lab Data Result diagrams: 01/23/21 21:46 01/23/21 21:46 Lab Results 01/23/21 01/23/21 01/23/21 Range/Units 21:46 21:46 21:46 WBC 13.2 H (3.8-10.6) k/uL RBC 4.18 L (4.30-5.90) m/uL Hgb 12.6 L (13.0-17.5) gm/dL Hct 39.2 (39.0-53.0) % MCV 93.7 (80.0-100.0) fL MCH 30.1 (25.0-35.0) pg MCHC 32.1 (31.0-37.0) g/dL RDW 13.7 (11.5-15.5) % Plt Count 410 (150-450) k/uL MPV 6.8 Neutrophils % 85 % Lymphocytes % 5 % Monocytes % 8 % Eosinophils % 1 % Basophils % 0 % Neutrophils # 11.3 H (1.3-7.7) k/uL Lymphocytes # 0.7 L (1.0-4.8) k/uL Monocytes # 1.0 (0-1.0) k/uL Eosinophils # 0.1 (0-0.7) k/uL Basophils # 0.1 (0-0.2) k/uL PT 10.2 (9.0-12.0) sec INR 0.9 (<1.2) APTT 21.6 L (22.0-30.0) sec Sodium 135 L (137-145) mmol/L Potassium 4.4 (3.5-5.1) mmol/L Chloride 86 L (98-107) mmol/L Carbon Dioxide 40 H (22-30) mmol/L Anion Gap 9 mmol/L BUN 20 (9-20) mg/dL Creatinine 0.68 (0.66-1.25) mg/dL Est GFR (CKD-EPI)AfAm >90 (>60 ml/min/1.73 sqM) Est GFR (CKD-EPI)NonAf >90 (>60 ml/min/1.73 sqM) Glucose 153 H (74-99) mg/dL Calcium 9.2 (8.4-10.2) mg/dL Total Bilirubin 0.3 (0.2-1.3) mg/dL AST 41 (17-59) U/L ALT 49 (4-49) U/L Alkaline Phosphatase 118 (38-126) U/L Troponin I (0.000-0.034) ng/mL Total Protein 6.8 (6.3-8.2) g/dL Albumin 3.8 (3.5-5.0) g/dL 01/23/21 Range/Units 21:46 WBC (3.8-10.6) k/uL RBC (4.30-5.90) m/uL Hgb (13.0-17.5) gm/dL Hct (39.0-53.0) % MCV (80.0-100.0) fL MCH (25.0-35.0) pg MCHC (31.0-37.0) g/dL RDW (11.5-15.5) % Plt Count (150-450) k/uL MPV Neutrophils % % Lymphocytes % % Monocytes % % Eosinophils % % Basophils % % Neutrophils # (1.3-7.7) k/uL Lymphocytes # (1.0-4.8) k/uL Monocytes # (0-1.0) k/uL Eosinophils # (0-0.7) k/uL Basophils # (0-0.2) k/uL PT (9.0-12.0) sec INR (<1.2) APTT (22.0-30.0) sec Sodium (137-145) mmol/L Potassium (3.5-5.1) mmol/L Chloride (98-107) mmol/L Carbon Dioxide (22-30) mmol/L Anion Gap mmol/L BUN (9-20) mg/dL Creatinine (0.66-1.25) mg/dL Est GFR (CKD-EPI)AfAm (>60 ml/min/1.73 sqM) Est GFR (CKD-EPI)NonAf (>60 ml/min/1.73 sqM) Glucose (74-99) mg/dL Calcium (8.4-10.2) mg/dL Total Bilirubin (0.2-1.3) mg/dL AST (17-59) U/L ALT (4-49) U/L Alkaline Phosphatase (38-126) U/L Troponin I <0.012 (0.000-0.034) ng/mL Total Protein (6.3-8.2) g/dL Albumin (3.5-5.0) g/dL Disposition Clinical Impression: COPD exacerbation Disposition: ADMITTED IP TO THIS HOSP Condition: Fair Is patient prescribed a controlled substance at d/c from ED?: No Referrals: Wolf Irizarry MD [Primary Care Provider] - 1-2 days Time of Disposition: 23:37
[2021-01-23 22:00] LABS: Basophils # (A) 0.1 k/uL (0-0.2); Basophils % (A) 0 %; Eosinophils # (A) 0.1 k/uL (0-0.7); Eosinophils % (A) 1 %; HCT 39.2 % (39.0-53.0); HGB 12.6 gm/dL (13.0-17.5); Lymphocytes # (A) 0.7 k/uL (1.0-4.8); Lymphocytes % (A) 5 %; MCH 30.1 pg (25.0-35.0); MCHC 32.1 g/dL (31.0-37.0); MCV 93.7 fL (80.0-100.0); Mean Platelet Volume 6.8; Monocytes % (A) 8 %; Neutrophils # (A) 11.3 k/uL (1.3-7.7); Neutrophils % (A) 85 %; Platelet Count 410 k/uL (150-450); RBC 4.18 m/uL (4.30-5.90); RDW 13.7 % (11.5-15.5); WBC 13.2 k/uL (3.8-10.6)
[2021-01-23 22:22] LABS: INR 0.9 (<1.2); Partial Thromboplastin Time 21.6 sec (22.0-30.0); Prothrombin Time 10.2 sec (9.0-12.0)
[2021-01-23 22:28] LABS: ALT 49 U/L (4-49); AST 41 U/L (17-59); African American GFR (CKD) >90 (>60 ml/min/1.73 sqM); Albumin 3.8 g/dL (3.5-5.0); Alkaline Phosphatase 118 U/L (38-126); Anion Gap 9 mmol/L; Blood Urea Nitrogen 20 mg/dL (9-20); Calcium 9.2 mg/dL (8.4-10.2); Chloride 86 mmol/L (98-107); Glucose 153 mg/dL (74-99); Non-African American GFR(CKD) >90 (>60 ml/min/1.73 sqM); Potassium 4.4 mmol/L (3.5-5.1); Sodium 135 mmol/L (137-145); Total Bilirubin 0.3 mg/dL (0.2-1.3); Total Protein 6.8 g/dL (6.3-8.2)
[2021-01-23 22:42] LABS: Carbon Dioxide 40 mmol/L (22-30)
--- NOTE | 2021-01-23 23:02 | XR ---
EXAMINATION TYPE: XR chest 2V DATE OF EXAM: 01/23/2021 COMPARISON: 11/30/2020 HISTORY: Short of breath TECHNIQUE: FINDINGS: Heart is normal. There is diffuse pulmonary interstitial infiltrate. There are no hilar mas ses. Mediastinum is normal. There are chest leads. There is no pleural effusion. No pneumothorax. The re is pulmonary hyperinflation. IMPRESSION: COPD. Pulmonary interstitial infiltrates similar to old exam could relate to acute and ch ronic interstitial pneumonia. Normal heart. No pleural fluid seen to suggest heart failure.
[2021-01-24] MEDS: ALBUTEROL NEBULIZED 2.5 MG/3 ML INHALATION SCH (07:54)
[2021-01-24] MEDS ORDERED: IPRATROPIUM-ALBUTEROL 3 ML NEB INHALATION PRN (11:35)
[2021-01-24] MEDS ORDERED: MELATONIN 5 MG TABLET PO PRN (11:36)
[2021-01-24] MEDS ORDERED: methylPREDNISolone SOD SUCCI 40 MG/ML 1 ML VIAL IV SCH (11:45)
[2021-01-24] MEDS: DILTIAZEM CD 180 MG CAP.ER.24H PO SCH (12:17)
[2021-01-24] MEDS: APIXABAN 5 MG TAB PO SCH ×2 (12:17→21:39)
[2021-01-24] MEDS: IPRATROPIUM-ALBUTEROL 3 ML NEB INHALATION SCH ×3 (12:29→19:30)
[2021-01-24] MEDS ORDERED: FUROSEMIDE 10 MG/ML 4 ML VIAL IV STA (14:08)
--- NOTE | 2021-01-24 14:09 | P.CNPUL ---
History of Present Illness Consult date: 01/24/21 Reason for consult: dyspnea, COPD History of present illness: 55-year-old white male patient with history of severe COPD/emphysema, alpha-1 antitrypsin deficiency,, with baseline FEV1 of 19% of predicted and severe dif fusion abnormality of 40% of predicted. Patient was recently hospitalized 10/27/2020 through 11/01/2020 and later on hospitalized between 11/23/2020 and 12/01/2020 for acute exacerbation of severe COPD. He is on nebulized DuoNeb, Trelegy Ellipta 47411.525 one puff inhalation daily. The patient also has a a a AVAPS machine at home but utilizes for chronic hypercapnic respiratory failure and recurrent COPD exacerbation. Patient is an ex-smoker, however has not smoked 1 year, prior to that smoked for 36 years pack a day, in addition had smoked marijuana. His other medical history hypertension, his blood pressure medication had to be by his primary care physician Dr. Juan C Gifford furthermore, worked up this patient for endobronchial valve insertion/lung volume reduction and as part of his workup, he underwent a high resolution computed tomography scan of the chest and this was consistent with COPD and he underwent a blood gas that showed significant CO2 retention with a pCO2 of 75 and a pH of 7.4 and a pO2 of 44 and this was on room air oxygen. Based on his underlying CO2 retention, he was essentially got disqualified for endobronchial valve insertion. I was coordinating all this work through this patient and [facility]. The patient came into the emergency department today because of worsening shortness of breath. He tested negative for COVID-19. His serum bicarb is at 40. Electrolytes all within normal limits. Sodium level is at 135. Troponins are negative. His white cell count is at 13.2 with a hemoglobin of 12.6. His chest x-ray showed no evidence of any airspace disease or pulmonary infiltrates. There is a component of increased interstitial markings bilaterally, could be related to an underlying interstitial edema. The patient also had an echocardiogram in 10/27/2020 and the patient a preserved LV function with an ejection fraction of 6065% and he did not have any evidence of pulmonary hypertension.nThe patient is currently on oxygen at 4 L of O2 by nasal cannula and the patient is comfortable and is able to speak of. This is. No fever. No chills. No active angina. No swelling in the lower extremities. He just completed a prednisone burst taper that was given to him following his most recent hospitalization. Review of Systems Constitutional: Denies chills, Denies fever Eyes: denies blurred vision, denies pain Ears, nose, mouth and throat: Denies headache, Denies sore throat Cardiovascular: Denies chest pain, shortness of breath, with limited amount of activity and even at rest and the patient has significant limitation of exercise capacity. Respiratory: Reports dyspnea, Reports home oxygen, Reports respiratory infections, Denies cough Gastrointestinal: Denies abdominal pain, Denies diarrhea, Denies nausea, Denies vomiting Musculoskeletal: Denies myalgias Integumentary: Denies pruritus, Denies rash Neurological: Denies numbness, Denies weakness Psychiatric: Denies anxiety, Denies depression Endocrine: Denies fatigue, Denies weight change Past Medical History Past Medical History: Atrial Fibrillation (PAF), COPD, Hypertension Additional Past Medical History / Comment(s): Alpha 1 antitrypsin deficiency, pancreatitis. History of Any Multi-Drug Resistant Organisms: None Reported Past Surgical History: Tonsillectomy Additional Past Surgical History / Comment(s): Colonoscopy Past Anesthesia/Blood Transfusion Reactions: No Reported Reaction Past Psychological History: No Psychological Hx Reported Smoking Status: Former smoker - Past Family History Mother Family Medical History: Hypertension Additional Family Medical History / Comment(s): Hip/knee replacements. Mother in her sleep in her 70s. Father Family Medical History: CVA/TIA Additional Family Medical History / Comment(s): Father is . Medications and Allergies Home Medications Medication Instructions Recorded Confirmed Type Albuterol Nebulized [Ventolin 2.5 mg INHALATION RT-TID PRN 02/18/20 01/23/21 History Nebulized] Albuterol Sulfate [Ventolin HFA] 2 puff INHALATION RT-Q4H PRN 02/18/20 01/23/21 History Fluticasone/Umeclidin/Vilanter 1 puff INHALATION RT-DAILY 02/18/20 01/23/21 History [Trelecynthia Ellipta 100-62.5-25] Famotidine [Pepcid] 20 mg PO BID #60 tablet 11/01/20 01/23/21 Rx Apixaban [Eliquis] 5 mg PO BID #60 tab 11/24/20 01/23/21 Rx Mirtazapine [Remeron] 15 mg PO HS 11/27/20 01/23/21 History Diltiazem Cd [Cardizem CD] 180 mg PO DAILY #30 cap.er.24h 12/01/20 01/23/21 Rx ALPRAZolam [Xanax] 0.5 mg PO TID PRN 01/23/21 01/23/21 History Loratadine [Claritin] 10 mg PO DAILY 01/23/21 01/23/21 History Melatonin 5 mg PO HS 01/23/21 01/23/21 History predniSONE See Taper PO DIRECTED 01/23/21 01/23/21 History Allergies Allergy/AdvReac Type Severity Reaction Status Date / Time ampicillin Allergy Unknown Verified 01/23/21 23:08 Childhood formoterol [From Perforomist] Allergy Anaphylaxis Verified 01/23/21 23:15 ipratropium Allergy Anaphylaxis Verified 01/23/21 23:15 Penicillins Allergy Unknown Verified 01/23/21 23:08 Childhood Physical Exam Vitals: Vital Signs Temp Pulse Resp BP Pulse Ox 01/24/21 12:48 90 01/24/21 12:29 86 01/24/21 11:35 16 01/24/21 11:00 80 18 134/78 100 01/24/21 08:04 82 01/24/21 07:54 82 01/24/21 04:17 78 18 153/84 93 L 01/24/21 01:50 92 18 140/98 93 L 01/24/21 00:00 18 01/23/21 23:59 86 18 131/96 92 L 01/23/21 22:40 87 22 145/55 97 01/23/21 22:05 91 01/23/21 22:00 93 01/23/21 20:56 96 22 147/86 100 01/23/21 20:49 98.7 F 95 22 99 Intake and Output 01/23/21 01/24/21 01/24/21 22:59 06:59 14:59 Other: Weight 66.678 kg GENERAL EXAM: Alert, very pleasant, 55-year-old white male, breathing is comfortable. He is not using excessive muscle breathing. On 3 liters/min NC HEAD: Normocephalic/atraumatic. EYES: Normal reaction of pupils, equal size. Conjunctiva pink, sclera white. NOSE: Clear with pink turbinates. THROAT: No erythema or exudates. NECK: No masses, no JVD, no thyroid enlargement, no adenopathy. CHEST: No chest wall deformity. Symmetrical expansion. Some mild tenderness to palpation over sternal area with coughing, reproducible LUNGS: Equal air entry with diffuse coarse crackles, anteriorly and posteriorly, overall diminished breath sounds bilaterally CVS: Regular rate and rhythm, normal S1 and S2, no gallops, no murmurs, no rubs ABDOMEN: Soft, nontender. No hepatosplenomegaly, normal bowel sounds, no guarding or rigidity. EXTREMITIES: No clubbing, no edema, no cyanosis, 2+ pulses and upper and lower extremities. MUSCULOSKELETAL: Muscle strength and tone normal. SPINE: No scoliosis or deformity SKIN: No rashes CENTRAL NERVOUS SYSTEM: Alert and oriented -3. No focal deficits, tone is normal in all 4 extremities. PSYCHIATRIC: Alert and oriented -3. Appropriate affect. Intact judgment and insight. Results - Laboratory Findings CBC and BMP: 01/23/21 21:46 01/23/21 21:46 PT/INR, D-dimer PT 10.2 sec (9.0-12.0) 01/23/21 21:46 INR 0.9 (<1.2) 01/23/21 21:46 Abnormal lab findings: Abnormal Labs 01/23/21 01/23/21 01/23/21 21:46 21:46 21:46 WBC 13.2 H RBC 4.18 L Hgb 12.6 L Neutrophils # 11.3 H Lymphocytes # 0.7 L APTT 21.6 L Sodium 135 L Chloride 86 L Carbon Dioxide 40 H Glucose 153 H - Diagnostic Findings Chest x-ray: image reviewed Assessment and Plan Plan: #1. Acute on chronic hypoxic and hypercapnic respiratory failure related to acute exacerbation of COPD, and possibility of mild diastolic CHF. COVID 19 was negative. Patient has advanced lung disease. The patient has had recurrent COPD exacerbations. His current chest x-ray showing some increased interstitial markings bilaterally. Could be related to some interstitial edema. He is cur rently on 3 L of oxygen by nasal cannula. COVID-19 testing came back negative. #2. Severe COPD, baseline FEV1 of 19% of predicted, stage IV COPD, on home oxygen at 3 L . The patient is a chronic CO2 retainer. He was not found to be a candidate for endobronchial [place] valve insertion because of chronic hypercapnic respiratory failure. #3. Alpha-1 anti-trypsin efficiency #4. 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 Hypertension #6 PAF current rhythm is sinus and the patient is on long-term anticoagulation with Eliquis. Plan: Continue DuoNeb neb last treatment [id number] Put the patient a combination of Perforomist and Pulmicort neb last 2 minutes twice a day IV Solu Medrol 60 mg every 6 hours Oxygen 3 L per minute nasal cannula *Patient to bring in his own AVAPS machine from home and I will be a good opportunity for me to check on the machine and make adjustments if needed Not a candidate for endobronchial [place] valve insertion because of chronic hypercapnic respiratory failure. Was discussed with him other options such as pulmonary transplantation later stage. Given a dose of Lasix 40 mg IV 1 We'll continue to follow.
--- NOTE | 2021-01-24 14:24 | P.HPIM ---
History of Present Illness 55-year-old the female with history of FEV1 of 19% had Alpha I antitrypsin deficiency, has 36 years a history of smoking patient usually uses 5 L of onset presently on 10 L of oxygen. Patient came in with complains of shortness of breath and cough and sputum production greenish sputum production. Patient in the past was worked up for lung reduction surgery she doesn't have any pneumonia on the chest x-ray has some diffuse interstitial markings which are present on previous x-rays as well. Patient is a pleasant elderly LV ejection fraction on echocardiogram. No evidence of pulmonary hypertension. Patient was started on steroids continue with inhalational treatments. Review of Systems REVIEW OF SYSTEMS: CONSTITUTIONAL: No fever, no malaise, no fatigue. HEENT: No recent visual problems or hearing problems. Denied any sore throat. CARDIOVASCULAR: No chest pain, orthopnea, PND, no palpitations, no syncope. PULMONARY: As mentioned in HPI. GASTROINTESTINAL: No diarrhea, no nausea, no vomiting, no abdominal pain. NEUROLOGICAL: No headaches, no weakness, no numbness. HEMATOLOGICAL: Denies any bleeding or petechiae. GENITOURINARY: Denies any burning micturition, frequency, or urgency. MUSCULOSKELETAL/RHEUMATOLOGICAL: Denies any joint pain, swelling, or any muscle pain. ENDOCRINE: Denies any polyuria or polydipsia. The rest of the 14-point review of systems is negative. Past Medical History Past Medical History: Atrial Fibrillation (PAF), COPD, Hypertension Additional Past Medical History / Comment(s): Alpha 1 antitrypsin deficiency, pancreatitis. History of Any Multi-Drug Resistant Organisms: None Reported Past Surgical History: Tonsillectomy Additional Past Surgical History / Comment(s): Colonoscopy Past Anesthesia/Blood Transfusion Reactions: No Reported Reaction Past Psychological History: No Psychological Hx Reported Smoking Status: Former smoker - Past Family History Mother Family Medical History: Hypertension Additional Family Medical History / Comment(s): Hip/knee replacements. Mother in her sleep in her 70s. Father Family Medical History: CVA/TIA Additional Family Medical History / Comment(s): Father is . Medications and Allergies Home Medications Medication Instructions Recorded Confirmed Type Albuterol Nebulized [Ventolin 2.5 mg INHALATION RT-TID PRN 02/18/20 01/23/21 History Nebulized] Albuterol Sulfate [Ventolin HFA] 2 puff INHALATION RT-Q4H PRN 02/18/20 01/23/21 History Fluticasone/Umeclidin/Vilanter 1 puff INHALATION RT-DAILY 02/18/20 01/23/21 History [Eren Ellipta 100-62.5-25] Famotidine [Pepcid] 20 mg PO BID #60 tablet 11/01/20 01/23/21 Rx Apixaban [Eliquis] 5 mg PO BID #60 tab 11/24/20 01/23/21 Rx Mirtazapine [Remeron] 15 mg PO HS 11/27/20 01/23/21 History Diltiazem Cd [Cardizem CD] 180 mg PO DAILY #30 cap.er.24h 12/01/20 01/23/21 Rx ALPRAZolam [Xanax] 0.5 mg PO TID PRN 01/23/21 01/23/21 History Loratadine [Claritin] 10 mg PO DAILY 01/23/21 01/23/21 History Melatonin 5 mg PO HS 01/23/21 01/23/21 History predniSONE See Taper PO DIRECTED 01/23/21 01/23/21 History Allergies Allergy/AdvReac Type Severity Reaction Status Date / Time ampicillin Allergy Unknown Verified 01/23/21 23:08 Childhood formoterol [From Perforomist] Allergy Anaphylaxis Verified 01/23/21 23:15 ipratropium Allergy Anaphylaxis Verified 01/23/21 23:15 Penicillins Allergy Unknown Verified 01/23/21 23:08 Childhood Physical Exam Vitals: Vital Signs Temp Pulse Resp BP Pulse Ox 01/24/21 12:48 90 01/24/21 12:29 86 01/24/21 11:35 16 01/24/21 11:00 80 18 134/78 100 01/24/21 08:04 82 01/24/21 07:54 82 01/24/21 04:17 78 18 153/84 93 L 01/24/21 01:50 92 18 140/98 93 L 01/24/21 00:00 18 01/23/21 23:59 86 18 131/96 92 L 01/23/21 22:40 87 22 145/55 97 01/23/21 22:05 91 01/23/21 22:00 93 01/23/21 20:56 96 22 147/86 100 01/23/21 20:49 98.7 F 95 22 99 Intake and Output 01/23/21 01/24/21 01/24/21 22:59 06:59 14:59 Other: Weight 66.678 kg PHYSICAL EXAMINATION: GENERAL: The patient is alert and oriented x3, not in any acute distress. Well developed, well nourished. HEENT: Pupils are round and equally reacting to light. EOMI. No scleral icterus. No conjunctival pallor. Normocephalic, atraumatic. No pharyngeal erythema. No thyromegaly. CARDIOVASCULAR: S1 and S2 present. No murmurs, rubs, or gallops. PULMONARY: Good air entry mild expiratory wheezing on exam ABDOMEN: Soft, nontender, nondistended, normoactive bowel sounds. No palpable organomegaly. MUSCULOSKELETAL: No joint swelling or deformity. EXTREMITIES: No cyanosis, clubbing, or pedal edema. NEUROLOGICAL: Gross neurological examination did not reveal any focal deficits. SKIN: No rashes. Results CBC & Chem 7: 01/23/21 21:46 01/23/21 21:46 Labs: Abnormal Lab Results - Last 24 Hours (Table) 01/23/21 01/23/21 01/23/21 Range/Units 21:46 21:46 21:46 WBC 13.2 H (3.8-10.6) k/uL RBC 4.18 L (4.30-5.90) m/uL Hgb 12.6 L (13.0-17.5) gm/dL Neutrophils # 11.3 H (1.3-7.7) k/uL Lymphocytes # 0.7 L (1.0-4.8) k/uL APTT 21.6 L (22.0-30.0) sec Sodium 135 L (137-145) mmol/L Chloride 86 L (98-107) mmol/L Carbon Dioxide 40 H (22-30) mmol/L Glucose 153 H (74-99) mg/dL Assessment and Plan Plan: -Acute on chronic hypoxic and hypercapnic respiratory failure secondary to COPD exacerbation patient's COVID-19 is negative patient will be continued on systemic steroids inhalational treatments pulmonology will evaluated the patient -Severe COPD with found antitrypsin deficiency -hypertension Atrial fibrillation/proximal atrial tachycardia: Patient is on Eliquis which will be continued patient is presently sinus rhythm. Cardiac Cardizem. -GI prophylaxis with Pepcid
[2021-01-24] MEDS: methylPREDNISolone SOD SUCCI 40 MG/ML 1 ML VIAL IV SCH (17:42)
[2021-01-24] MEDS: ALPRAZolam 0.5 MG TAB PO PRN (18:05)
[2021-01-24] MEDS: FAMOTIDINE 20 MG TAB PO SCH (21:39)
[2021-01-24] MEDS: MIRTAZAPINE 15 MG TAB PO SCH (21:39)
[2021-01-25] MEDS: methylPREDNISolone SOD SUCCI 40 MG/ML 1 ML VIAL IV SCH ×4 (00:35→17:24)
[2021-01-25] MEDS ORDERED: NON FORMULARY DRUG (Fluticasone/Umeclidin/Vilanter [Trelegy Ellipta 100-62.5-25] 1 EACH Bl INHALATION SCH (08:00)
[2021-01-25] MEDS: IPRATROPIUM-ALBUTEROL 3 ML NEB INHALATION SCH ×4 (08:57→20:21)
[2021-01-25] MEDS: FAMOTIDINE 20 MG TAB PO SCH ×2 (09:22→20:40)
[2021-01-25] MEDS: DILTIAZEM CD 180 MG CAP.ER.24H PO SCH (09:22)
[2021-01-25] MEDS: LORATADINE 10 MG TAB PO SCH (09:22)
[2021-01-25] MEDS: APIXABAN 5 MG TAB PO SCH ×2 (09:22→20:40)
[2021-01-25 10:22] LABS: HCT 40.9 % (39.6-50.0); HGB 12.7 g/dL (13.0-17.0); MCH 29.9 pg (27.0-32.0); MCHC 31.1 g/dL (32.0-37.0); MCV 96.2 fL (80.0-97.0); Mean Platelet Volume 9.4 fL (9.5-12.2); Platelet Count 435 X 10*3/uL (140-440); RBC 4.25 X 10*6/uL (4.40-5.60); RDW 13.4 % (11.5-14.5); WBC 9.42 X 10*3/uL (4.50-10.00)
[2021-01-25] MEDS ORDERED: FUROSEMIDE 10 MG/ML 4 ML VIAL IV STA (12:42)
--- NOTE | 2021-01-25 12:42 | P.DS ---
Providers Date of admission: 01/23/21 23:19 Attending physician: Misha Perez Consults: 01/23/21 23:37 Consult Physician Routine Consulting Provider: Simon Gaytan Consult Reason/Comments: COPD exacerbation Do you want consulting provider notified?: Yes Primary care physician: Wolf [facility] Course: 55-year-old the female with history of FEV1 of 19% had Alpha I antitrypsin deficiency, has 36 years a history of smoking patient usually uses 5 L of onset presently on 10 L of oxygen. Patient came in with complains of shortness of breath and cough and sputum production greenish sputum production. Patient in the past was worked up for lung reduction surgery she doesn't have any pneumonia on the chest x-ray has some diffuse interstitial markings which are present on previous x-rays as well. Patient is a pleasant elderly LV ejection fraction on echocardiogram. No evidence of pulmonary hypertension. Patient was started on steroids continue with inhalational treatments. 01/25/2021 patient is still has diminished air entry into bilateral lung miles although patient is at his baseline patient is on 4 L of oxygen uses BiPAP when he sleeps. Patient probably can be discharged today after evaluation by pulmonary. PHYSICAL EXAMINATION: GENERAL: The patient is alert and oriented x3, not in any acute distress. Well developed, well nourished. HEENT: Pupils are round and equally reacting to light. EOMI. No scleral icterus. No conjunctival pallor. Normocephalic, atraumatic. No pharyngeal erythema. No thyromegaly. CARDIOVASCULAR: S1 and S2 present. No murmurs, rubs, or gallops. PULMONARY: Mildly diminished air entry into bilateral implants no wheezing was appreciated ABDOMEN: Soft, nontender, nondistended, normoactive bowel sounds. No palpable organomegaly. MUSCULOSKELETAL: No joint swelling or deformity. EXTREMITIES: No cyanosis, clubbing, or pedal edema. NEUROLOGICAL: Gross neurological examination did not reveal any focal deficits. SKIN: No rashes. Assessment and Plan Plan: -Acute on chronic hypoxic and hypercapnic respiratory failure secondary to COPD exacerbation patient's COVID-19 is negative , patient is clinically doing well will be discharged today -Severe COPD , patient quit smoking in the past patient does have history of alpha 1 antitrypsin deficiency -hypertension Atrial fibrillation/proximal atrial tachycardia: Patient is on Eliquis which will be continued patient is presently sinus rhythm. Continue Cardizem. Patient Condition at Discharge: Fair Plan - Discharge Summary New Discharge Prescriptions: New predniSONE 10 mg PO DAILY #30 tab Continue Fluticasone/Umeclidin/Vilanter [Trelegy Ellipta 100-62.5-25] 1 puff INHALATION RT-DAILY Albuterol Sulfate [Ventolin HFA] 2 puff INHALATION RT-Q4H PRN PRN Reason: Shortness Of Breath Albuterol Nebulized [Ventolin Nebulized] 2.5 mg INHALATION RT-TID PRN PRN Reason: Shortness Of Breath Famotidine [Pepcid] 20 mg PO BID #60 tablet Melatonin 5 mg PO HS Apixaban [Eliquis] 5 mg PO BID #60 tab Mirtazapine [Remeron] 15 mg PO HS Diltiazem Cd [Cardizem CD] 180 mg PO DAILY #30 cap.er.24h Loratadine [Claritin] 10 mg PO DAILY ALPRAZolam [Xanax] 0.5 mg PO TID PRN PRN Reason: Anxiety Discontinued predniSONE See Taper PO DIRECTED Discharge Medication List Albuterol Nebulized [Ventolin Nebulized] 2.5 mg INHALATION RT-TID PRN 02/18/20 [History] Albuterol Sulfate [Ventolin HFA] 2 puff INHALATION RT-Q4H PRN 02/18/20 [History] Fluticasone/Umeclidin/Vilanter [Trelegy Ellipta 100-62.5-25] 1 puff INHALATION RT-DAILY 02/18/20 [History] Famotidine [Pepcid] 20 mg PO BID #60 tablet 11/01/20 [Rx] Apixaban [Eliquis] 5 mg PO BID #60 tab 11/24/20 [Rx] Mirtazapine [Remeron] 15 mg PO HS 11/27/20 [History] Diltiazem Cd [Cardizem CD] 180 mg PO DAILY #30 cap.er.24h 12/01/20 [Rx] ALPRAZolam [Xanax] 0.5 mg PO TID PRN 01/23/21 [History] Loratadine [Claritin] 10 mg PO DAILY 01/23/21 [History] Melatonin 5 mg PO HS 01/23/21 [History] predniSONE 10 mg PO DAILY #30 tab 01/25/21 [Rx] Follow up Appointment(s)/Referral(s): Wolf Irizarry MD [Primary Care Provider] - 02/02/21 11:00 am Simon Gaytan MD [STAFF PHYSICIAN] - 02/10/21 3:00 pm Discharge Disposition: HOME SELF-CARE
--- NOTE | 2021-01-25 12:43 | P.PN ---
Subjective Progress Note Date: 01/25/21 55-year-old white male patient with history of severe COPD/emphysema, alpha-1 antitrypsin deficiency,, with baseline FEV1 of 19% of predicted and severe diffusion abnormality of 40% of predicted. Patient was recently hospitalized 10/27/2020 through 11/01/2020 and later on hospitalized between 11/23/2020 and 12/01/2020 for acute exacerbation of severe COPD. He is on nebulized DuoNeb, Trelegy Ellipta [id number] one puff inhalation daily. The patient also has a a a AVAPS machine at home but utilizes for chronic hypercapnic respiratory failure and recurrent COPD exacerbation. Patient is an ex-smoker, however has not smoked 1 year, prior to that smoked for 36 years pack a day, in addition had smoked marijuana. His other medical history hypertension, his blood pressure medication had to be by his primary care physician Dr. Juan C Gifford furthermore, worked up this patient for endobronchial valve insertion/lung volume reduction and as part of his workup, he underwent a high resolution computed tomography scan of the chest and this was consistent with COPD and he underwent a blood gas that showed significant CO2 retention with a pCO2 of 75 and a pH of 7.4 and a pO2 of 44 and this was on room air oxygen. Based on his underlying CO2 retention, he was essentially got disqualified for endobronchial valve insertion. I was coordinating all this work through this patient and [facility]. The patient came into the emergency department today because of worsening shortness of breath. He tested negative for COVID-19. His serum bicarb is at 40. Electrolytes all within normal limits. Sodium level is at 135. Troponins are negative. His white cell count is at 13.2 with a hemoglobin of 12.6. His chest x-ray showed no evidence of any airspace disease or pulmonary infiltrates. There is a component of increased interstitial markings bilaterally, could be related to an underlying interstitial edema. The patient also had an echocardiogram in 10/27/2020 and the patient a preserved LV function with an ejection fraction of 6065% and he did not have any evidence of pulmonary hypertension.nThe patient is currently on oxygen at 4 L of O2 by nasal cannula and the patient is comfortable and is able to speak of. This is. No fever. No chills. No active angina. No swelling in the lower extremities. He just completed a prednisone burst taper that was given to him following his most recent hospitalization. 01/25/2021, clinically the patient is improving. He is less short of breath compared to yesterday. He is on a combination of bronchodilators and steroids and he was given a dose of Lasix yesterday with excellent urine output. Breath sounds are quite diminished and the patient is having some limited crackles in lung bases bilaterally. He was also able to get his on AVAPS machine from home which is at [facility] and the patient is utilizing it very much every day and every night and on and off during the day. He is able to speak Full sentences. No angina. No palpitation. No altered mentation. Objective - Vital Signs Vital signs: Vital Signs Temp 97.7 F 01/25/21 08:00 Pulse 71 01/25/21 08:20 Resp 18 01/25/21 08:20 BP 132/79 01/25/21 08:00 Pulse Ox 98 01/25/21 08:00 Intake & Output 01/24/21 01/25/21 01/25/21 18:59 06:59 18:59 Output Total 2 Balance -2 Output: Urine 2 - Exam GENERAL EXAM: Alert, very pleasant, 55-year-old white male, breathing is comfortable. He is not using excessive muscle breathing. On 3 liters/min NC HEAD: Normocephalic/atraumatic. EYES: Normal reaction of pupils, equal size. Conjunctiva pink, sclera white. NOSE: Clear with pink turbinates. THROAT: No erythema or exudates. NECK: No masses, no JVD, no thyroid enlargement, no adenopathy. CHEST: No chest wall deformity. Symmetrical expansion. Some mild tenderness to palpation over sternal area with coughing, reproducible LUNGS: Equal air entry with diffuse coarse crackles, anteriorly and posteriorly, overall diminished breath sounds bilaterally CVS: Regular rate and rhythm, normal S1 and S2, no gallops, no murmurs, no rubs ABDOMEN: Soft, nontender. No hepatosplenomegaly, normal bowel sounds, no guarding or rigidity. EXTREMITIES: No clubbing, no edema, no cyanosis, 2+ pulses and upper and lower extremities. MUSCULOSKELETAL: Muscle strength and tone normal. SPINE: No scoliosis or deformity SKIN: No rashes CENTRAL NERVOUS SYSTEM: Alert and oriented -3. No focal deficits, tone is normal in all 4 extremities. PSYCHIATRIC: Alert and oriented -3. Appropriate affect. Intact judgment and insight. - Labs CBC & Chem 7: 01/25/21 05:31 01/23/21 21:46 Labs: Abnormal Lab Results - Last 24 Hours (Table) 01/25/21 Range/Units 05:31 RBC 4.25 L (4.40-5.60) X 10*6/uL Hgb 12.7 L (13.0-17.0) g/dL MCHC 31.1 L (32.0-37.0) g/dL MPV 9.4 L (9.5-12.2) fL Assessment and Plan Plan: #1. Acute on chronic hypoxic and hypercapnic respiratory failure related to acute exacerbation of COPD, and possibility of mild diastolic CHF. COVID 19 was negative. Patient has advanced lung disease. The patient has had recurrent COPD exacerbations. His current chest x-ray showing some increased interstitial markings bilaterally. Could be related to some interstitial edema. He is currently on 3 L of oxygen by nasal cannula. COVID-19 testing came back negative. #2. Severe COPD, baseline FEV1 of 19% of predicted, stage IV COPD, on home oxygen at 3 L . The patient is a chronic CO2 retainer. He was not found to be a candidate for endobronchial [place] valve insertion because of chronic hypercapnic respiratory failure. #3. Alpha-1 anti-trypsin efficiency #4. 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 Hypertension #6 PAF current rhythm is sinus and the patient is on long-term anticoagulation with Eliquis. Plan: Continue DuoNeb neb last treatment [id number] Put the patient a combination of Perforomist and Pulmicort neb last 2 minutes twice a day IV Solu Medrol 60 mg every 6 hours We'll give the patient another dose of Lasix 40 mg IV push He is clinically improving I checked this patient's AVAPS machine at that was brought in home. This do not to be atrial imaging ventilator which is set at a target tidal volume of 500 mL, starting EPAP pressures at 10, pressure support is at 4, max pressures at 20 and the patient is using a Simplus fullface mask. Not a candidate for endobronchial [place] valve insertion because of chronic hypercapnic respiratory failure. Was discussed with him other options such as pulmonary transplantation later stage. We'll continue to follow.
[2021-01-25] MEDS: ALBUTEROL NEBULIZED 2.5 MG/3 ML INHALATION SCH (13:03)
[2021-01-25] MEDS: ALPRAZolam 0.5 MG TAB PO PRN ×2 (13:41→22:28)
[2021-01-25 15:49] LABS: African American GFR (CKD) 141.4 (60.0-200.0); Calcium 9.2 mg/dL (8.7-10.3); Potassium 4.5 mmol/L (3.5-5.5)
[2021-01-25] MEDS: MIRTAZAPINE 15 MG TAB PO SCH (20:40)
[2021-01-26] MEDS: methylPREDNISolone SOD SUCCI 40 MG/ML 1 ML VIAL IV SCH ×3 (00:15→11:48)
[2021-01-26 02:52] VITALS: TEMP 97.4
[2021-01-26] MEDS: IPRATROPIUM-ALBUTEROL 3 ML NEB INHALATION SCH ×2 (07:50→11:28)
[2021-01-26] MEDS: ALPRAZolam 0.5 MG TAB PO PRN (08:49)
[2021-01-26] MEDS: APIXABAN 5 MG TAB PO SCH (08:49)
[2021-01-26] MEDS: DILTIAZEM CD 180 MG CAP.ER.24H PO SCH (08:49)
[2021-01-26] MEDS: FAMOTIDINE 20 MG TAB PO SCH (08:50)
[2021-01-26] MEDS: LORATADINE 10 MG TAB PO SCH (08:50)
--- NOTE | 2021-01-26 09:06 | XR ---
EXAMINATION TYPE: XR chest 1V portable DATE OF EXAM: 01/26/2021 COMPARISON: 01/23/2021 HISTORY: Shortness of breath TECHNIQUE: Single frontal view of the chest is obtained. FINDINGS: 2 images, one view portable upright AP was obtained. Heart size is within normal limits. Athetotic aorta. Diffuse pulmonary interstitial airspace opacitie s. Minimal blunting of the costophrenic angles may represent tiny pleural effusions or scarring. No p neumothorax. Hyperaeration lung suggestive of COPD. IMPRESSION: 1. Diffuse pulmonary interstitial airspace opacities are similar to prior exam. Acute interstitial pn eumonia is not excluded, which may be superimposed on pulmonary fibrosis. 2. COPD. 3. Blunting of the costophrenic angle suggestive tiny pleural effusions or scarring.
[2021-01-26 13:51] VITALS: BP 123/77; PULSE 87; RESP 18
--- NOTE | 2021-01-27 09:35 | P.DS ---
Providers Date of admission: 01/23/21 23:19 Expected date of discharge: 01/26/21 Attending physician: Misha Perez Consults: 01/23/21 23:37 Consult Physician Routine Consulting Provider: Simon Gaytan Consult Reason/Comments: COPD exacerbation Do you want consulting provider notified?: Yes Primary care physician: Wolf Irizarry Hospital Course: Final diagnosis -Acute on chronic hypoxic and hypercapnic respiratory failure secondary to COPD exacerbation -COVID-19 ruled out, testing was negative -Severe COPD , patient quit smoking in the past patient does have history of alpha 1 antitrypsin deficiency -hypertension -Atrial fibrillation/proximal atrial tachycardia Discharge disposition Patient is being discharged in a stable condition with guarded prognosis to home . Patient will follow-up with Dr. Irizarry in the outpatient setting upon discharge. Patient is to follow up with pulmonary in one week. Patient will continue on a prednisone taper. Total time taken is greater than 35 minutes. Hospital course 55-year-old the female with history of FEV1 of 19% had Alpha I antitrypsin deficiency, has 36 years a history of smoking patient usually uses 5 L of onset presently on 10 L of oxygen. Patient came in with complains of shortness of breath and cough and sputum production greenish sputum production. Patient in the past was worked up for lung reduction surgery she doesn't have any pneumonia on the chest x-ray has some diffuse interstitial markings which are present on previous x-rays as well. Patient is a pleasant elderly LV ejection fraction on echocardiogram. No evidence of pulmonary hypertension. Patient was started on steroids continue with inhalational treatments. 01/25/2021 patient is still has diminished air entry into bilateral lung miles although patient is at his baseline patient is on 4 L of oxygen uses BiPAP when he sleeps. Patient probably can be discharged today after evaluation by pulmonary. 01/26/2021 Patient is seen this morning with no acute overnight issues. Patient was seen and evaluated by pulmonary and will be following up outpatient. Patient will be discharged on a prednisone taper along with continued breathing treatments. Currently no reports of chest pain, shortness of breath, or palpitations. Patient is afebrile. No reports of nausea or vomiting and patient is tolerating diet. Patient will be discharged home today. On exam vital signs are stable. Cardio S1, S2 are muffled. Respiratory system shows diminished breath sounds at the bases with no wheezing or rhonchi noted. Abdomen is soft and nontender. Nervous system shows no focal deficits. Please refer to medication reconciliation sheet for a list of medications. Patient Condition at Discharge: Fair Plan - Discharge Summary New Discharge Prescriptions: New Ipratropium-Albuterol Nebulize [Duoneb 0.5 mg-3 mg/3 ml Soln] 3 ml INHALATION RT-QID 30 Days #120 ml predniSONE 10 mg PO DIRECTED #75 tab Continue Fluticasone/Umeclidin/Vilanter [Trelegy Ellipta 100-62.5-25] 1 puff INHALATION RT-DAILY Albuterol Sulfate [Ventolin HFA] 2 puff INHALATION RT-Q4H PRN PRN Reason: Shortness Of Breath Albuterol Nebulized [Ventolin Nebulized] 2.5 mg INHALATION RT-TID PRN PRN Reason: Shortness Of Breath Famotidine [Pepcid] 20 mg PO BID #60 tablet Melatonin 5 mg PO HS Apixaban [Eliquis] 5 mg PO BID #60 tab Mirtazapine [Remeron] 15 mg PO HS Diltiazem Cd [Cardizem CD] 180 mg PO DAILY #30 cap.er.24h Loratadine [Claritin] 10 mg PO DAILY ALPRAZolam [Xanax] 0.5 mg PO TID PRN PRN Reason: Anxiety Discontinued predniSONE See Taper PO DIRECTED Discharge Medication List Albuterol Nebulized [Ventolin Nebulized] 2.5 mg INHALATION RT-TID PRN 02/18/20 [History] Albuterol Sulfate [Ventolin HFA] 2 puff INHALATION RT-Q4H PRN 02/18/20 [History] Fluticasone/Umeclidin/Vilanter [Trelegy Ellipta 100-62.5-25] 1 puff INHALATION RT-DAILY 02/18/20 [History] Famotidine [Pepcid] 20 mg PO BID #60 tablet 11/01/20 [Rx] Apixaban [Eliquis] 5 mg PO BID #60 tab 11/24/20 [Rx] Mirtazapine [Remeron] 15 mg PO HS 11/27/20 [History] Diltiazem Cd [Cardizem CD] 180 mg PO DAILY #30 cap.er.24h 12/01/20 [Rx] ALPRAZolam [Xanax] 0.5 mg PO TID PRN 01/23/21 [History] Loratadine [Claritin] 10 mg PO DAILY 01/23/21 [History] Melatonin 5 mg PO HS 01/23/21 [History] Ipratropium-Albuterol Nebulize [Duoneb 0.5 mg-3 mg/3 ml Soln] 3 ml INHALATION RT-QID 30 Days #120 ml 01/26/21 [Rx] predniSONE 10 mg PO DIRECTED #75 tab 01/26/21 [Rx] Follow up Appointment(s)/Referral(s): Wolf Irizarry MD [Primary Care Provider] - 02/02/21 11:00 am Simon Gaytan MD [STAFF PHYSICIAN] - 02/10/21 3:00 pm Patient Instructions/Handouts: COPD (Chronic Obstructive Pulmonary Disease) (DC), Hypoxia (GEN) Activity/Diet/Wound Care/Special Instructions: Activity Limited until follow-up Follow-up with primary care provider upon discharge Follow-up with pulmonary outpatient as scheduled Continue with prednisone taper as directed Continue current diet Discharge Disposition: HOME SELF-CARE
== END 2021-01-26 15:09 | disposition home or self-care (01) | DRG 190 ==
LOC: EC 20:45 → 4SSUR 23:19
PROVIDERS: ADMIT Internal Medicine; ATTEND Internal Medicine
PROC: 5A09457 Assistance with Respiratory Ventilation, 24-96 Consecutive Hours, Continuous Positive Airway Pressure (ICD-10-PCS; principal; 2021-01-24)
DX: J43.9 Emphysema, unspecified (principal); J96.22 Acute and chronic respiratory failure with hypercapnia; J96.21 Acute and chronic respiratory failure with hypoxia; E88.01 Alpha-1-antitrypsin deficiency; I48.0 Paroxysmal atrial fibrillation; Z20.822 Contact with and (suspected) exposure to COVID-19; I10 Essential (primary) hypertension; J45.909 Unspecified asthma, uncomplicated; D64.9 Anemia, unspecified; Z99.81 Dependence on supplemental oxygen; Z79.01 Long term (current) use of anticoagulants; Z79.51 Long term (current) use of inhaled steroids; Z79.899 Other long term (current) drug therapy; Z87.891 Personal history of nicotine dependence; Z90.89 Acquired absence of other organs; Z87.19 Personal history of other diseases of the digestive system; Z98.890 Other specified postprocedural states; Z88.8 Allergy status to other drugs, medicaments and biological substances; Z91.010 Allergy to peanuts; Z82.49 Family history of ischemic heart disease and other diseases of the circulatory system; Z82.69 Family history of other diseases of the musculoskeletal system and connective tissue; Z82.3 Family history of stroke
CPT/HCPCS: 36415; 71045; 71046; 80048; 80053; 84484; 85025; 85027; 85610; 85730; 87635; 93005; 94640; 96374; 99285

== ENCOUNTER 2021-03-02 12:16 | Inpatient (IN) | payer OTHER ==
[2021-03-02] MEDS ORDERED: ALBUTEROL NEBULIZED 2.5 MG/3 ML INHALATION STA (12:23)
[2021-03-02] MEDS ORDERED: DILTIAZEM DRIP BOLUS FROM BAG 1 MG SOLN IV ONE (12:24)
--- NOTE | 2021-03-02 12:28 | ED ---
General Adult HPI - General Stated complaint: CHERI Time Seen by Provider: 03/02/21 12:18 Source: patient, EMS, RN notes reviewed Mode of arrival: EMS Limitations: no limitations - History of Present Illness Initial comments: Patient is a pleasant 5-year-old male presenting to the emergency Department with complaints of dyspnea. Symptoms have progressed with the past few days. Minimal cough. No fever. No leg pain or leg swelling. Patient does have history of similar symptoms previously associated with COPD. No history of CHF. Patient does have history of atrial fibrillation. No chest discomfort. Symptoms have improved following nebulizer and oxygen by EMS. - Related Data Home Medications Medication Instructions Recorded Confirmed Albuterol Nebulized [Ventolin 2.5 mg INHALATION RT-TID PRN 02/18/20 01/23/21 Nebulized] Albuterol Sulfate [Ventolin HFA] 2 puff INHALATION RT-Q4H PRN 02/18/20 01/23/21 Fluticasone/Umeclidin/Vilanter 1 puff INHALATION RT-DAILY 02/18/20 01/23/21 [Trelegy Ellipta 100-62.5-25] Mirtazapine [Remeron] 15 mg PO HS 11/27/20 01/23/21 ALPRAZolam [Xanax] 0.5 mg PO TID PRN 01/23/21 01/23/21 Loratadine [Claritin] 10 mg PO DAILY 01/23/21 01/23/21 Melatonin 5 mg PO HS 01/23/21 01/23/21 Previous Rx's Medication Instructions Recorded Famotidine [Pepcid] 20 mg PO BID #60 tablet 11/01/20 Apixaban [Eliquis] 5 mg PO BID #60 tab 11/24/20 Diltiazem Cd [Cardizem CD] 180 mg PO DAILY #30 cap.er.24h 12/01/20 Ipratropium-Albuterol Nebulize 3 ml INHALATION RT-QID 30 Days 01/26/21 [Duoneb 0.5 mg-3 mg/3 ml Soln] #120 ml predniSONE 10 mg PO DIRECTED #75 tab 01/26/21 Allergies Allergy/AdvReac Type Severity Reaction Status Date / Time ampicillin Allergy Unknown Verified 03/02/21 12:18 Childhood formoterol [From Perforomist] Allergy Anaphylaxis Verified 03/02/21 12:18 ipratropium Allergy Anaphylaxis Verified 03/02/21 12:18 Penicillins Allergy Unknown Verified 03/02/21 12:18 Childhood Review of Systems ROS Statement: Those systems with pertinent positive or pertinent negative responses have been documented in the HPI. ROS Other: All systems not noted in ROS Statement are negative. Constitutional: Denies: fever Eyes: Denies: eye pain ENT: Denies: ear pain Respiratory: Reports: as per HPI, dyspnea Cardiovascular: Denies: chest pain Endocrine: Denies: fatigue Gastrointestinal: Denies: abdominal pain Genitourinary: Denies: dysuria Musculoskeletal: Denies: back pain Skin: Denies: rash Neurological: Denies: weakness Past Medical History Past Medical History: Atrial Fibrillation (PAF), COPD, Hypertension Additional Past Medical History / Comment(s): Alpha 1 antitrypsin deficiency, pancreatitis. History of Any Multi-Drug Resistant Organisms: None Reported Past Surgical History: Tonsillectomy Additional Past Surgical History / Comment(s): Colonoscopy Past Anesthesia/Blood Transfusion Reactions: No Reported Reaction Past Psychological History: No Psychological Hx Reported Smoking Status: Former smoker - Past Family History Mother Family Medical History: Hypertension Additional Family Medical History / Comment(s): Hip/knee replacements. Mother in her sleep in her 70s. Father Family Medical History: CVA/TIA Additional Family Medical History / Comment(s): Father is . General Exam Limitations: no limitations General appearance: alert Head exam: Present: normocephalic Eye exam: Present: normal appearance ENT exam: Present: normal exam Respiratory exam: Present: respiratory distress, wheezes, decreased breath sounds Cardiovascular Exam: Present: tachycardia, irregular rhythm GI/Abdominal exam: Present: soft. Absent: tenderness Extremities exam: Present: normal inspection. Absent: pedal edema, calf tenderness Neurological exam: Present: alert Psychiatric exam: Present: normal affect, normal mood Skin exam: Present: normal color Course Vital Signs 03/02/21 03/02/21 03/02/21 12:18 12:28 12:45 Temperature 97.4 F L Pulse Rate 147 H 134 H 136 H Respiratory 26 H Rate Blood Pressure 144/92 O2 Sat by Pulse 99 Oximetry 03/02/21 03/02/21 12:51 13:25 Temperature Pulse Rate 126 H 141 H Respiratory 26 H 22 Rate Blood Pressure 137/117 103/74 O2 Sat by Pulse 94 L 87 L Oximetry EKG Findings - EKG Comments: EKG Findings:: A. fib with rate of 154. QRS 170. QT 286. QTc 458. Normal axis. Nonspecific interventricular block. No acute ST change. Medical Decision Making - Medical Decision Making Case was discussed with Dr. Perez, covering for Dr. Irizarry, who will admit. He did evaluate patient. He also request cardiology consult. Patient reevaluated several times. Patient and family updated. Patient is doing well on BiPAP. - Lab Data Result diagrams: 03/02/21 12:29 03/02/21 12:29 Lab Results 03/02/21 03/02/21 03/02/21 Range/Units 12:29 12:29 12:29 WBC 14.7 H (3.8-10.6) k/uL RBC 4.40 (4.30-5.90) m/uL Hgb 12.8 L (13.0-17.5) gm/dL Hct 41.7 (39.0-53.0) % MCV 94.9 (80.0-100.0) fL MCH 29.2 (25.0-35.0) pg MCHC 30.8 L (31.0-37.0) g/dL RDW 13.9 (11.5-15.5) % Plt Count 371 (150-450) k/uL MPV 6.8 Neutrophils % 82 % Lymphocytes % 9 % Monocytes % 5 % Eosinophils % 2 % Basophils % 0 % Neutrophils # 12.0 H (1.3-7.7) k/uL Lymphocytes # 1.4 (1.0-4.8) k/uL Monocytes # 0.7 (0-1.0) k/uL Eosinophils # 0.2 (0-0.7) k/uL Basophils # 0.1 (0-0.2) k/uL Hypochromasia Slight PT 10.5 (9.0-12.0) sec INR 1.0 (<1.2) APTT 24.3 (22.0-30.0) sec VBG pH (7.31-7.41) VBG pCO2 (37-51) mmHg VBG HCO3 (24-28) mmol/L Sodium 133 L (137-145) mmol/L Potassium 4.1 (3.5-5.1) mmol/L Chloride 83 L (98-107) mmol/L Carbon Dioxide 44 H* (22-30) mmol/L Anion Gap 6 mmol/L BUN 11 (9-20) mg/dL Creatinine 0.27 L (0.66-1.25) mg/dL Est GFR (CKD-EPI)AfAm >90 (>60 ml/min/1.73 sqM) Est GFR (CKD-EPI)NonAf >90 (>60 ml/min/1.73 sqM) Glucose 169 H (74-99) mg/dL Plasma Lactic Acid Andrei (0.7-2.0) mmol/L Calcium 9.0 (8.4-10.2) mg/dL Magnesium 1.7 (1.6-2.3) mg/dL Total Bilirubin 0.6 (0.2-1.3) mg/dL AST 26 (17-59) U/L ALT 25 (4-49) U/L Alkaline Phosphatase 121 (38-126) U/L Troponin I (0.000-0.034) ng/mL NT-Pro-B Natriuret Pep pg/mL Total Protein 6.8 (6.3-8.2) g/dL Albumin 3.6 (3.5-5.0) g/dL TSH 2.320 (0.465-4.680) mIU/L Free T4 1.02 (0.78-2.19) ng/dL Free T3 pg/mL 3.8 (2.8-5.3) pg/ml 03/02/21 03/02/21 03/02/21 Range/Units 12:29 12:29 12:29 WBC (3.8-10.6) k/uL RBC (4.30-5.90) m/uL Hgb (13.0-17.5) gm/dL Hct (39.0-53.0) % MCV (80.0-100.0) fL MCH (25.0-35.0) pg MCHC (31.0-37.0) g/dL RDW (11.5-15.5) % Plt Count (150-450) k/uL MPV Neutrophils % % Lymphocytes % % Monocytes % % Eosinophils % % Basophils % % Neutrophils # (1.3-7.7) k/uL Lymphocytes # (1.0-4.8) k/uL Monocytes # (0-1.0) k/uL Eosinophils # (0-0.7) k/uL Basophils # (0-0.2) k/uL Hypochromasia PT (9.0-12.0) sec INR (<1.2) APTT (22.0-30.0) sec VBG pH (7.31-7.41) VBG pCO2 (37-51) mmHg VBG HCO3 (24-28) mmol/L Sodium (137-145) mmol/L Potassium (3.5-5.1) mmol/L Chloride (98-107) mmol/L Carbon Dioxide (22-30) mmol/L Anion Gap mmol/L BUN (9-20) mg/dL Creatinine (0.66-1.25) mg/dL Est GFR (CKD-EPI)AfAm (>60 ml/min/1.73 sqM) Est GFR (CKD-EPI)NonAf (>60 ml/min/1.73 sqM) Glucose (74-99) mg/dL Plasma Lactic Acid Andrei 0.8 (0.7-2.0) mmol/L Calcium (8.4-10.2) mg/dL Magnesium (1.6-2.3) mg/dL Total Bilirubin (0.2-1.3) mg/dL AST (17-59) U/L ALT (4-49) U/L Alkaline Phosphatase (38-126) U/L Troponin I <0.012 (0.000-0.034) ng/mL NT-Pro-B Natriuret Pep 186 pg/mL Total Protein (6.3-8.2) g/dL Albumin (3.5-5.0) g/dL TSH (0.465-4.680) mIU/L Free T4 (0.78-2.19) ng/dL Free T3 pg/mL (2.8-5.3) pg/ml 03/02/21 Range/Units 12:33 WBC (3.8-10.6) k/uL RBC (4.30-5.90) m/uL Hgb (13.0-17.5) gm/dL Hct (39.0-53.0) % MCV (80.0-100.0) fL MCH (25.0-35.0) pg MCHC (31.0-37.0) g/dL RDW (11.5-15.5) % Plt Count (150-450) k/uL MPV Neutrophils % % Lymphocytes % % Monocytes % % Eosinophils % % Basophils % % Neutrophils # (1.3-7.7) k/uL Lymphocytes # (1.0-4.8) k/uL Monocytes # (0-1.0) k/uL Eosinophils # (0-0.7) k/uL Basophils # (0-0.2) k/uL Hypochromasia PT (9.0-12.0) sec INR (<1.2) APTT (22.0-30.0) sec VBG pH 7.44 H (7.31-7.41) VBG pCO2 65 H (37-51) mmHg VBG HCO3 43 H (24-28) mmol/L Sodium (137-145) mmol/L Potassium (3.5-5.1) mmol/L Chloride (98-107) mmol/L Carbon Dioxide (22-30) mmol/L Anion Gap mmol/L BUN (9-20) mg/dL Creatinine (0.66-1.25) mg/dL Est GFR (CKD-EPI)AfAm (>60 ml/min/1.73 sqM) Est GFR (CKD-EPI)NonAf (>60 ml/min/1.73 sqM) Glucose (74-99) mg/dL Plasma Lactic Acid Andrei (0.7-2.0) mmol/L Calcium (8.4-10.2) mg/dL Magnesium (1.6-2.3) mg/dL Total Bilirubin (0.2-1.3) mg/dL AST (17-59) U/L ALT (4-49) U/L Alkaline Phosphatase (38-126) U/L Troponin I (0.000-0.034) ng/mL NT-Pro-B Natriuret Pep pg/mL Total Protein (6.3-8.2) g/dL Albumin (3.5-5.0) g/dL TSH (0.465-4.680) mIU/L Free T4 (0.78-2.19) ng/dL Free T3 pg/mL (2.8-5.3) pg/ml - Radiology Data Radiology results: image reviewed (Chest x-ray shows COPD changes. Interstitial changes. Possible developing infiltrates or interstitial pneumonia.) Critical Care Time Critical Care Time: Yes Total Critical Care Time: 33 Disposition Clinical Impression: COPD exacerbation, Acute respiratory failure, Atrial fibrillation with RVR, Pneumonia, Sepsis Disposition: ADMITTED IP TO THIS [facility] Condition: Serious Is patient prescribed a controlled substance at d/c from ED?: No Referrals: Wolf Irizarry MD [Primary Care Provider] - 1-2 days Decision Time: 13:46
[2021-03-02 12:43] LABS: Basophils # (A) 0.1 k/uL (0-0.2); Basophils % (A) 0 %; Eosinophils # (A) 0.2 k/uL (0-0.7); Eosinophils % (A) 2 %; HCT 41.7 % (39.0-53.0); HGB 12.8 gm/dL (13.0-17.5); Hypochromasia Slight; Lymphocytes # (A) 1.4 k/uL (1.0-4.8); Lymphocytes % (A) 9 %; MCH 29.2 pg (25.0-35.0); MCHC 30.8 g/dL (31.0-37.0); MCV 94.9 fL (80.0-100.0); Mean Platelet Volume 6.8; Monocytes # (A) 0.7 k/uL (0-1.0); Monocytes % (A) 5 %; Neutrophils % (A) 82 %; Platelet Count 371 k/uL (150-450); RDW 13.9 % (11.5-15.5); WBC 14.7 k/uL (3.8-10.6)
[2021-03-02 12:44] LABS: VBG PH 7.44 (7.31-7.41)
[2021-03-02] MEDS ORDERED: methylPREDNISolone SOD SUCCI 125 MG/2 ML VIAL IV STA (12:50)
[2021-03-02 12:53] LABS: Partial Thromboplastin Time 24.3 sec (22.0-30.0); Prothrombin Time 10.5 sec (9.0-12.0)
[2021-03-02] MEDS ORDERED: DILTIAZEM 125 MG in SODIUM CHLORIDE 0.9% 100 ML IV SCH (13:00)
[2021-03-02 13:03] LABS: ALT 25 U/L (4-49); AST 26 U/L (17-59); African American GFR (CKD) >90 (>60 ml/min/1.73 sqM); Albumin 3.6 g/dL (3.5-5.0); Alkaline Phosphatase 121 U/L (38-126); Blood Urea Nitrogen 11 mg/dL (9-20); Chloride 83 mmol/L (98-107); Glucose 169 mg/dL (74-99); Magnesium 1.7 mg/dL (1.6-2.3); Non-African American GFR(CKD) >90 (>60 ml/min/1.73 sqM); Potassium 4.1 mmol/L (3.5-5.1); Sodium 133 mmol/L (137-145); Total Bilirubin 0.6 mg/dL (0.2-1.3); Total Protein 6.8 g/dL (6.3-8.2)
[2021-03-02 13:08] LABS: Anion Gap 6 mmol/L
[2021-03-02 13:18] LABS: T4, Free (Free Thyroxine) 1.02 ng/dL (0.78-2.19)
--- NOTE | 2021-03-02 13:28 | XR ---
EXAMINATION TYPE: XR chest 1V portable DATE OF EXAM: 03/02/2021 COMPARISON: 01/26/2021 HISTORY: Shortness of breath TECHNIQUE: Single frontal view of the chest is obtained. FINDINGS: Diffuse hyperinflation with bilateral patchy infiltrates and reticular nodular interstitia l changes. More consolidative process lower lobes and right upper lobe relative to the prior exam. Co uld be secondary to developing pneumonia superimposed on a background of pulmonary fibrosis. Neoplast ic process not excluded. Interstitial pneumonitis in the differential diagnosis. Heart size stable. No sizable pleural effusi on. Interstitial pneumonia IMPRESSION: 1. The mixed interstitial and alveolar pattern correlate for developing pneumonia in the lower lobes and right upper lobe. Background of underlying chronic interstitial lung disease and COPD suspected. Correlate for interstitial pneumonia.
[2021-03-02] MEDS ORDERED: METOPROLOL TARTRATE 50 MG TAB PO STA (13:33)
[2021-03-02 13:40] LABS: Carbon Dioxide 44 mmol/L (22-30)
[2021-03-02] MEDS ORDERED: PNEUMONIA PROTOCOL UTILIZED 1 EACH MISC PO PRN (13:47)
[2021-03-02] MEDS ORDERED: AZITHROMYCIN 500 MG in SODIUM CHLORIDE 0.9% 250 ML IVPB STA (13:47)
[2021-03-02] MEDS ORDERED: ALBUTEROL NEBULIZED 2.5 MG/3 ML INHALATION PRN (13:47)
[2021-03-02] MEDS ORDERED: CEFEPIME 2 GM in SODIUM CHLORIDE 0.9% 100 ML IVPB STA (13:47)
[2021-03-02] MEDS: ALBUTEROL NEBULIZED 2.5 MG/3 ML INHALATION SCH ×2 (15:11→19:35)
[2021-03-02] MEDS ORDERED: ALPRAZolam 0.5 MG TAB PO PRN (17:29)
[2021-03-02] MEDS ORDERED: MELATONIN 5 MG TABLET PO PRN (17:29)
--- NOTE | 2021-03-02 17:37 | P.HPIM ---
History of Present Illness Patient is a pleasant 55-year-old male with known history of advanced COPD although an antitrypsin deficient in and smoking history until and year ago came in with complaints of cough and shortness of breath progressively worsening presently on BiPAP. Chest x-ray was done which showed alveolar infiltrate and white was read as atypical pneumonia need to be considered. Patient had a history of pseudomonas pneumonia in the past, patient was started on cefepime. Patient has some chronic lung disease including emphysema and possible pulmonary fibrosis, BNP is only 150. Patient doesn't have any fever or had minimal leukocytosis of 14.7, pro calcitonin is being obtained. Patient is also on azithromycin Patient does have history of atrial fibrillation is on anticoagulation with Eliquis. Patient was diagnosed with A. fib during his last hospitalization presently in A. fib initially was on Cardizem with a drop in blood pressure, patient was subsequently switched to metoprolol, with improved heart rate still in the flut ter with 3 : 1 conduction. Patient is minimally hyponatremic. Patient did not take his oral Cardizem today morning. REVIEW OF SYSTEMS: CONSTITUTIONAL: No fever, no malaise, no fatigue. HEENT: No recent visual problems or hearing problems. Denied any sore throat. CARDIOVASCULAR: No chest pain, orthopnea, PND, no palpitations, no syncope. PULMONARY:, no hemoptysis. GASTROINTESTINAL: No diarrhea, no nausea, no vomiting, no abdominal pain. NEUROLOGICAL: No headaches, no weakness, no numbness. HEMATOLOGICAL: Denies any bleeding or petechiae. GENITOURINARY: Denies any burning micturition, frequency, or urgency. MUSCULOSKELETAL/RHEUMATOLOGICAL: Denies any joint pain, swelling, or any muscle pain. ENDOCRINE: Denies any polyuria or polydipsia. The rest of the 14-point review of systems is negative. PHYSICAL EXAMINATION: GENERAL: The patient is alert on BiPAP mild respiratory distress,Well developed, well nourished. HEENT: Pupils are round and equally reacting to light. EOMI. No scleral icterus. No conjunctival pallor. Normocephalic, atraumatic. No pharyngeal erythema. No thyromegaly. CARDIOVASCULAR: S1 and S2 present. No murmurs, rubs, or gallops. PULMONARY: Diminished air entry without any crackles or wheezing ABDOMEN: Soft, nontender, nondistended, normoactive bowel sounds. No palpable organomegaly. MUSCULOSKELETAL: No joint swelling or deformity. EXTREMITIES: No cyanosis, clubbing, or pedal edema. NEUROLOGICAL: Gross neurological examination did not reveal any focal deficits. SKIN: No rashes. Assessment and plan -Acute hypoxic respiratory failure requiring BiPAP: Patient will be continued on cefepime and azithromycin, patient has history of pseudomonas and infection in the past. He progressed from is negative and erratic skin be discontinued at that time. Patient does have COPD exacerbation, continue cystic steroids inhalational treatments -History of alpha-1 antitrypsin deficiency -Chronic hypoxic and hypercapnic respiratory failure secondary to COPD, alpha-1 antitrypsin deficiency -Atrial fibrillation with rapid ventricular rate now rate controlled continue with the metoprolol this can you Cardizem IV with anticoagulation. -Hypertension -Mild hyponatremia will repeat labs tomorrow. DVT prophylaxis: Patient already on Eliquis Past Medical History Past Medical History: Atrial Fibrillation (PAF), COPD, Hypertension Additional Past Medical History / Comment(s): Alpha 1 antitrypsin deficiency, pancreatitis. History of Any Multi-Drug Resistant Organisms: None Reported Past Surgical History: Tonsillectomy Additional Past Surgical History / Comment(s): Colonoscopy Past Anesthesia/Blood Transfusion Reactions: No Reported Reaction Past Psychological History: No Psychological Hx Reported Smoking Status: Former smoker - Past Family History Mother Family Medical History: Hypertension Additional Family Medical History / Comment(s): Hip/knee replacements. Mother in her sleep in her 70s. Father Family Medical History: CVA/TIA Additional Family Medical History / Comment(s): Father is . Medications and Allergies Home Medications Medication Instructions Recorded Confirmed Type Albuterol Nebulized [Ventolin 2.5 mg INHALATION RT-TID PRN 02/18/20 03/02/21 History Nebulized] Albuterol Sulfate [Ventolin HFA] 2 puff INHALATION RT-Q4H PRN 02/18/20 03/02/21 History Fluticasone/Umeclidin/Vilanter 1 puff INHALATION RT-DAILY 02/18/20 03/02/21 History [Trelegy Ellipta 100-62.5-25] Apixaban [Eliquis] 5 mg PO BID #60 tab 11/24/20 03/02/21 Rx Mirtazapine [Remeron] 7.5 mg PO HS 11/27/20 03/02/21 History Diltiazem Cd [Cardizem CD] 180 mg PO DAILY #30 cap.er.24h 12/01/20 03/02/21 Rx ALPRAZolam [Xanax] 0.5 mg PO TID PRN 01/23/21 03/02/21 History Loratadine [Claritin] 10 mg PO DAILY 01/23/21 03/02/21 History Melatonin 5 mg PO HS 01/23/21 03/02/21 History Ascorbic Acid [Vitamin C] 1,000 mg PO DAILY 03/02/21 03/02/21 History Cholecalciferol [Vitamin D3 (25 25 mcg PO DAILY 03/02/21 03/02/21 History Mcg = 1000 Iu)] Famotidine [Pepcid] 20 mg PO DAILY 03/02/21 03/02/21 History Furosemide [Lasix] 20 mg PO DAILY 03/02/21 03/02/21 History Ipratropium-Albuterol Nebulize 3 ml INHALATION RT-Q4H PRN 03/02/21 03/02/21 History [Duoneb 0.5 mg-3 mg/3 ml Soln] Multivitamins, Thera [Multivitamin 1 tab PO DAILY 03/02/21 03/02/21 History (formulary)] Potassium Chloride ER [K-Dur 10] 10 meq PO DAILY 03/02/21 03/02/21 History Sertraline [Zoloft] 25 mg PO HS 03/02/21 03/02/21 History Vitamin B Complex 1 cap PO DAILY 03/02/21 03/02/21 History predniSONE 10 mg PO DAILY 03/02/21 03/02/21 History Allergies Allergy/AdvReac Type Severity Reaction Status Date / Time ampicillin Allergy Unknown Verified 03/02/21 14:22 Childhood formoterol [From Perforomist] Allergy Anaphylaxis Verified 03/02/21 14:22 ipratropium Allergy Anaphylaxis Verified 03/02/21 14:22 Penicillins Allergy Unknown Verified 03/02/21 14:22 Childhood Physical Exam Vitals: Vital Signs Temp Pulse Resp BP Pulse Ox 03/02/21 16:49 84 18 112/84 99 03/02/21 15:28 84 03/02/21 15:13 75 03/02/21 14:42 83 110/88 03/02/21 14:20 99 18 119/73 98 03/02/21 13:47 138 H 18 109/69 92 L 03/02/21 13:25 141 H 22 103/74 87 L 03/02/21 12:51 126 H 26 H 137/117 94 L 03/02/21 12:45 136 H 03/02/21 12:28 134 H 03/02/21 12:18 97.4 F L 147 H 26 H 144/92 99 Intake and Output 03/02/21 03/02/21 03/02/21 06:59 14:59 22:59 Intake Total 3.167 Balance 3.167 Intake: Intake, IV Titration 3.167 Amount Diltiazem 125 mg In 3.167 Sodium Chloride 0.9% 100 ml @ 5 MG/HR 5 mls/hr IV .Q24H [facility] Rx#:[id number] Other: Weight 66.678 kg Results CBC & Chem 7: 03/02/21 12:29 03/02/21 12:29 Labs: Abnormal Lab Results - Last 24 Hours (Table) 03/02/21 03/02/21 03/02/21 Range/Units 12:29 12:29 12:33 WBC 14.7 H (3.8-10.6) k/uL Hgb 12.8 L (13.0-17.5) gm/dL MCHC 30.8 L (31.0-37.0) g/dL Neutrophils # 12.0 H (1.3-7.7) k/uL VBG pH 7.44 H (7.31-7.41) VBG pCO2 65 H (37-51) mmHg VBG HCO3 43 H (24-28) mmol/L Sodium 133 L (137-145) mmol/L Chloride 83 L (98-107) mmol/L Carbon Dioxide 44 H* (22-30) mmol/L Creatinine 0.27 L (0.66-1.25) mg/dL Glucose 169 H (74-99) mg/dL
[2021-03-02] MEDS ORDERED: methylPREDNISolone SOD SUCCI 125 MG/2 ML VIAL IV SCH (18:00)
[2021-03-02] MEDS ORDERED: MORPHINE SULFATE 2 MG/ML SYRINGE IVP PRN (19:23)
[2021-03-02] MEDS: SERTRALINE 25 MG TAB PO SCH (20:37)
[2021-03-02] MEDS: APIXABAN 5 MG TAB PO SCH (20:37)
[2021-03-02] MEDS: methylPREDNISolone SOD SUCCI 40 MG/ML 1 ML VIAL IV SCH (20:38)
[2021-03-02] MEDS: MIRTAZAPINE 15 MG TAB PO SCH (20:38)
[2021-03-02 20:46] LABS: Glucose,Whole Blood 158 mg/dL (75-99)
[2021-03-02] MEDS ORDERED: METOPROLOL TARTRATE 50 MG TAB PO SCH (21:00)
[2021-03-02] MEDS: INSULIN ASPART (NovoLOG) 100 UNIT/ML VIAL SQ SCH (21:23)
[2021-03-02] MEDS: CEFEPIME 2 GM in SODIUM CHLORIDE 0.9% 100 ML IVPB SCH (23:04)
[2021-03-03 06:05] LABS: Glucose,Whole Blood 142 mg/dL (75-99)
[2021-03-03] MEDS: INSULIN ASPART (NovoLOG) 100 UNIT/ML VIAL SQ SCH ×4 (06:32→22:39)
[2021-03-03] MEDS: ALBUTEROL NEBULIZED 2.5 MG/3 ML INHALATION SCH ×5 (07:47→21:34)
--- NOTE | 2021-03-03 08:00 | XR ---
EXAMINATION TYPE: XR chest 1V portable DATE OF EXAM: 03/03/2021 COMPARISON: 03/02/2021 HISTORY: Respiratory failure, COPD TECHNIQUE: Single frontal view of the chest is obtained. FINDINGS: Heart size is within normal limits. Overlying leads. There is hyperaeration of lungs. Patc hy airspace opacities throughout the lungs have decreased since prior exam. Probable tiny pleural eff usions or scarring. No pneumothorax. IMPRESSION: 1. Patchy interstitial and alveolar airspace opacities have decreased since prior exam. Probable unde rlying COPD.
[2021-03-03] MEDS: APIXABAN 5 MG TAB PO SCH ×2 (08:39→22:40)
[2021-03-03] MEDS: FAMOTIDINE 20 MG TAB PO SCH (08:39)
[2021-03-03] MEDS: methylPREDNISolone SOD SUCCI 40 MG/ML 1 ML VIAL IV SCH ×4 (08:39→22:40)
[2021-03-03] MEDS: DILTIAZEM CD 180 MG CAP.ER.24H PO SCH (08:39)
[2021-03-03] MEDS: CEFEPIME 2 GM in SODIUM CHLORIDE 0.9% 100 ML IVPB SCH (08:40)
[2021-03-03] MEDS ORDERED: AZITHROMYCIN 500 MG in SODIUM CHLORIDE 0.9% 250 ML IVPB SCH (09:00)
[2021-03-03] MEDS ORDERED: NON FORMULARY DRUG (Vitamin B Complex [Vitamin B Complex] 1 EACH Capsule) PO SCH (09:00)
[2021-03-03] MEDS: NON FORMULARY DRUG (Fluticasone/Umeclidin/Vilanter [Trelegy Ellipta 100-62.5-25] 1 EACH Bl INHALATION SCH (11:06)
--- NOTE | 2021-03-03 11:25 | P.CRDCN ---
History of Present Illness History of present illness: HISTORY OF PRESENTING ILLNESS This is a pleasant 55-year-old male past medical history significant for hypertension, COPD, alpha-1 antitrypsin, paroxysmal atrial fibrillation on Eliquis and former nicotine dependence. 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 We have been asked to see in consultation for Isabella dick with [facility]. He presented to the hospital with symptoms of shortness of breath and had been getting progressively worse over the previous few days. He also felt significant palpitations. EKG on arrival is atrial fibrillation with rapid ventricular rate heart rate of 154. He was initiated on Cardizem infusion and has since converted back to sinus mechanism. He also was diagnosed with pneumonia and has been started on IV steroids along with IV antibiotics. Chest x-ray reveals mixed interstitial and alveolar pattern in the lower lobes and right upper lobe with underlying chronic interstitial lung disease. Laboratory data reviewed, WBC 14.7, hemoglobin 12.8, platelets 371, pCO2 65, sodium 133, potassium 4.1, creatinine 0.27, cardiac enzymes negative 1, and 2 proBNP 186, TSH 2.32. Current daily cardiac medications include Eliquis 5 mg twice a day, diltiazem 180 mg daily and Lasix 20 mg daily. Echocardiogram obtained November 2020 revealed preserved LV systolic function with ejection fraction 60-65%, mild TR and mild pulmonary hypertension with an RVSP of 36 mmHg. REVIEW OF SYSTEMS At the time of my exam: CONSTITUTIONAL: Denies fever or chills. CARDIOVASCULAR: Complains of shortness of breath. Denies chest pain, orthopnea, PND or palpitations. RESPIRATORY: Denies cough. GASTROINTESTINAL: Denies abdominal pain, diarrhea, constipation, nausea or vomiting. MUSCULOSKELETAL: Denies myalgias. NEUROLOGIC: Denies numbness, tingling, headacbe or weakness. ENDOCRINE: Denies fatigue, weight change, polydipsia or polyurina. GENITOURINARY: Denies burning, hematuria or urgency with micturation. HEMATOLOGIC: Denies history of anemia or bleeding. PHYSICAL EXAMINATION Blood pressure 127/81 heart rate 86 afebrile and maintaining oxygen saturation on nasal cannula. CONSTITUTIONAL: No apparent distress. HEENT: Head is normocephalic. Pupils are equal, round. Sclerae anicteric. Mucous membranes of the mouth are moist. No JVD. No carotid bruit. CHEST EXAMINATION: Scattered rhonchi. No chest wall tenderness is noted on palpation or with deep breathing. HEART EXAMINATION: Regular rate and rhythm. S1, S2 heard. No murmurs, gallops or rub. ABDOMEN: Soft, nontender. Positive bowel sounds. EXTREMITIES: 2+ peripheral pulses, no lower extremity edema and no calf tenderness. NEUROLOGIC EXAMINATION: Patient is awake, alert and oriented x3. ASSESSMENT Pneumonia Leukocytosis Proximal atrial fibrillation on long-term anticoagulation, converted to sinus mechanism Alpha-1 antitrypsin Hypertension PLAN Continue Cardizem as previously ordered. Continue Eliquis for thrombolic protection. Recent echocardiogram reviewed, we will not repeat an echo on this visit. Ongoing medical evaluation and treatment of underlying pneumonia. Follow-up in the office with Dr. Alonso upon discharge. Thank you kindly for this consultation. Nurse Practitioner note has been reviewed, I agree with a documented findings and plan of care. Patient was seen and examined. Past Medical History Past Medical History: Atrial Fibrillation, COPD, Hypertension Additional Past Medical History / Comment(s): Alpha 1 antitrypsin deficiency, pancreatitis. History of Any Multi-Drug Resistant Organisms: None Reported Past Surgical History: Tonsillectomy Additional Past Surgical History / Comment(s): Colonoscopy Past Anesthesia/Blood Transfusion Reactions: No Reported Reaction Past Psychological History: No Psychological Hx Reported Additional Psychological History / Comment(s): Pt resides with his spouse. He is independent. Smoking Status: Former smoker Past Alcohol Use History: None Reported Additional Past Alcohol Use History / Comment(s): Pt started smoking in 1983 and quit one year ago, 2019. Pt states he was a heavier drinker as a young adult then quit at age 27 for a time and now drinks on occasion. Past Drug Use History: None Reported - Past Family History Mother Family Medical History: Hypertension Additional Family Medical History / Comment(s): Hip/knee replacements. Mother in her sleep in her 70s. Father Family Medical History: CVA/TIA Additional Family Medical History / Comment(s): Father is . Medications and Allergies Home Medications Medication Instructions Recorded Confirmed Type Albuterol Nebulized [Ventolin 2.5 mg INHALATION RT-TID PRN 02/18/20 03/02/21 History Nebulized] Albuterol Sulfate [Ventolin HFA] 2 puff INHALATION RT-Q4H PRN 02/18/20 03/02/21 History Fluticasone/Umeclidin/Vilanter 1 puff INHALATION RT-DAILY 02/18/20 03/02/21 History [Trelecynthia Ellipta 100-62.5-25] Apixaban [Eliquis] 5 mg PO BID #60 tab 11/24/20 03/02/21 Rx Mirtazapine [Remeron] 7.5 mg PO HS 11/27/20 03/02/21 History Diltiazem Cd [Cardizem CD] 180 mg PO DAILY #30 cap.er.24h 12/01/20 03/02/21 Rx ALPRAZolam [Xanax] 0.5 mg PO TID PRN 01/23/21 03/02/21 History Loratadine [Claritin] 10 mg PO DAILY 01/23/21 03/02/21 History Melatonin 5 mg PO HS 01/23/21 03/02/21 History Ascorbic Acid [Vitamin C] 1,000 mg PO DAILY 03/02/21 03/02/21 History Cholecalciferol [Vitamin D3 (25 25 mcg PO DAILY 03/02/21 03/02/21 History Mcg = 1000 Iu)] Famotidine [Pepcid] 20 mg PO DAILY 03/02/21 03/02/21 History Furosemide [Lasix] 20 mg PO DAILY 03/02/21 03/02/21 History Ipratropium-Albuterol Nebulize 3 ml INHALATION RT-Q4H PRN 03/02/21 03/02/21 History [Duoneb 0.5 mg-3 mg/3 ml Soln] Multivitamins, Thera [Multivitamin 1 tab PO DAILY 03/02/21 03/02/21 History (formulary)] Potassium Chloride ER [K-Dur 10] 10 meq PO DAILY 03/02/21 03/02/21 History Sertraline [Zoloft] 25 mg PO HS 03/02/21 03/02/21 History Vitamin B Complex 1 cap PO DAILY 03/02/21 03/02/21 History predniSONE 10 mg PO DAILY 03/02/21 03/02/21 History Allergies Allergy/AdvReac Type Severity Reaction Status Date / Time ampicillin Allergy Unknown Verified 03/02/21 14:22 Childhood formoterol [From Perforomist] Allergy Anaphylaxis Verified 03/02/21 14:22 ipratropium Allergy Anaphylaxis Verified 03/02/21 14:22 Penicillins Allergy Unknown Verified 03/02/21 14:22 Childhood Physical Exam Vitals: Vital Signs Temp Pulse Pulse Resp BP BP Pulse Ox 03/03/21 08:05 83 03/03/21 07:48 78 93 L 03/03/21 04:00 98.5 F 86 23 127/81 95 03/02/21 23:35 97.6 F 84 20 114/76 98 03/02/21 22:07 97.9 F 88 21 127/44 98 03/02/21 20:00 88 L 03/02/21 19:58 97.6 F 87 22 119/75 90 L 03/02/21 19:51 96 03/02/21 19:50 86 03/02/21 19:37 86 03/02/21 17:45 97.6 F 84 03/02/21 16:49 84 18 112/84 99 03/02/21 15:28 84 03/02/21 15:13 75 03/02/21 14:42 83 110/88 03/02/21 14:20 99 18 119/73 98 03/02/21 13:47 138 H 18 109/69 92 L 03/02/21 13:25 141 H 22 103/74 87 L 03/02/21 12:51 126 H 26 H 137/117 94 L 03/02/21 12:45 136 H 03/02/21 12:28 134 H 03/02/21 12:18 97.4 F L 147 H 26 H 144/92 99 Intake and Output 03/02/21 03/03/21 03/03/21 22:59 06:59 14:59 Output Total 400 Balance -400 Output: Urine 400 Other: Voiding Method Urinal Weight 66.678 kg 65.8 kg Results 03/02/21 12:29 03/02/21 12:29 Cardiac Enzymes 03/02/21 03/02/21 Range/Units 12:29 12:29 AST 26 (17-59) U/L Troponin I <0.012 (0.000-0.034) ng/mL Coagulation 03/02/21 Range/Units 12:29 PT 10.5 (9.0-12.0) sec APTT 24.3 (22.0-30.0) sec CBC 03/02/21 Range/Units 12:29 WBC 14.7 H (3.8-10.6) k/uL RBC 4.40 (4.30-5.90) m/uL Hgb 12.8 L (13.0-17.5) gm/dL Hct 41.7 (39.0-53.0) % Plt Count 371 (150-450) k/uL Comprehensive Metabolic Panel 03/02/21 Range/Units 12:29 Sodium 133 L (137-145) mmol/L Potassium 4.1 (3.5-5.1) mmol/L Chloride 83 L (98-107) mmol/L Carbon Dioxide 44 H* (22-30) mmol/L BUN 11 (9-20) mg/dL Creatinine 0.27 L (0.66-1.25) mg/dL Glucose 169 H (74-99) mg/dL Calcium 9.0 (8.4-10.2) mg/dL AST 26 (17-59) U/L ALT 25 (4-49) U/L Alkaline Phosphatase 121 (38-126) U/L Total Protein 6.8 (6.3-8.2) g/dL Albumin 3.6 (3.5-5.0) g/dL Current Medications Generic Name Dose Route Start Last Admin Trade Name Freq PRN Reason Stop Dose Admin Albuterol Sulfate 2.5 mg 03/02/21 13:47 Albuterol Nebulized 2.5 Mg/3 Ml INHALATION RT-Q4H PRN Shortness Of Breath Or Wheezing Albuterol Sulfate 2.5 mg 03/02/21 16:00 03/03/21 07:47 Albuterol Nebulized 2.5 Mg/3 Ml INHALATION 2.5 mg RT-QID CLAUDE Administration Alprazolam 0.5 mg 03/02/21 17:29 03/02/21 23:04 Alprazolam 0.5 Mg Tab PO 0.5 mg TID PRN Administration Anxiety Apixaban 5 mg 03/02/21 21:00 03/02/21 20:37 Apixaban 5 Mg Tab PO 5 mg BID CLAUDE Administration Protocol Diltiazem HCl 180 mg 03/03/21 09:00 Diltiazem Cd 180 Mg Cap.Er.24h PO DAILY CLAUDE Famotidine 20 mg 03/03/21 09:00 Famotidine 20 Mg Tab PO DAILY CLAUDE Azithromycin 500 mg/ Sodium 250 mls @ 250 mls/hr 03/03/21 09:00 Chloride IVPB 03/07/21 09:01 DAILY CLAUDE Cefepime HCl 2 gm/ Sodium 100 mls @ 25 mls/hr 03/03/21 00:00 03/02/21 23:04 Chloride IVPB 03/09/21 00:01 25 mls/hr Q8HR CLAUDE Administration Insulin Aspart 0 unit 03/02/21 21:00 03/03/21 06:32 Insulin Aspart (Novolog) 100 Unit/Ml Vial SQ 2 unit ACHS CLAUDE Administration Protocol Melatonin 5 mg 03/02/21 17:29 Melatonin 5 Mg Tablet PO HS PRN Insomnia Methylprednisolone Sodium Succinate 40 mg 03/02/21 22:00 03/02/21 20:38 Methylprednisolone Sod Succi 40 Mg/Ml 1 Ml Vial IV 40 mg TID CLAUDE Administration Mirtazapine 7.5 mg 03/02/21 21:00 03/02/21 20:38 Mirtazapine 15 Mg Tab PO 7.5 mg HS CLAUDE Administration Miscellaneous Information 1 each 03/02/21 13:47 Pneumonia Protocol Utilized 1 Each Misc PO ONCE PRN Per Protocol Non-Formulary Medication 1 puff 03/03/21 08:00 Fluticasone/Umeclidin/Vilanter [Trelegy Ellipta 100-62.5-25] INHALATION RT-DAILY CLAUDE Sertraline HCl 25 mg 03/02/21 21:00 03/02/21 20:37 Sertraline 25 Mg Tab PO 25 mg HS CLAUDE Administration Intake and Output 03/02/21 03/03/21 03/03/21 22:59 06:59 14:59 Output Total 400 Balance -400 Output: Urine 400 Other: Voiding Method Urinal Weight 66.678 kg 65.8 kg 03/02/21 12:29 03/02/21 12:29
[2021-03-03 11:46] LABS: Glucose,Whole Blood 288 mg/dL (75-99)
[2021-03-03] MEDS ORDERED: INSULIN ASPART (NovoLOG) 100 UNIT/ML VIAL SQ ONE (12:15)
--- NOTE | 2021-03-03 14:55 | P.PN ---
Subjective Patient is a pleasant 55-year-old male with known history of advanced COPD although an antitrypsin deficient in and smoking history until and year ago came in with complaints of cough and shortness of breath progressively worsening presently on BiPAP. Chest x-ray was done which showed alveolar infiltrate and white was read as atypical pneumonia need to be considered. Patient had a history of pseudomonas pneumonia in the past, patient was started on cefepime. Patient has some chronic lung disease including emphysema and possible pulmonary fibrosis, BNP is only 150. Patient doesn't have any fever or had minimal leukocytosis of 14.7, pro calcitonin is being obtained. Patient is also on azithromycin Patient does have history of atrial fibrillation is on anticoagulation with Eliquis. Patient was diagnosed with A. fib during his last hospitalization presently in A. fib initially was on Cardizem with a drop in blood pressure, patient was subsequently switched to metoprolol, with improved heart rate still in the flutter with 3 : 1 conduction. Patient is minimally hyponatremic. Patient did not take his oral Cardizem today morning. 03/03/2021 Patient is rate controlled at this time patient's beta rula was switched to Cardizem probably because of his advanced COPD. Patient is presently sinus rhythm. Patient's pro calcitonin level is very low which rules out any bacterial infection and will not require any antibiotics, cefepime and azithromycin will be discontinued. Patient is presently on 4 L of falls and significant improvement in his respiratory status probably can be transferred out to medical surgical floor from stepdown unit probably can be discharged tomorrow. Patient uses 4 L of oxygen at home. Constitutional: Denied any fatigue denied any fever. Cardio vascular: denied any chest pain, palpitations Gastrointestinal denied any nausea vomiting Pulmonary: Denied any shortness of breath cough Neurologic denied any new focal deficits All inpatient medications were reviewed and appropriate changes in these medications as dictated in the interval history and assessment and plan. PHYSICAL EXAMINATION: GENERAL: The patient is alert on BiPAP mild respiratory distress,Well developed, well nourished. HEENT: Pupils are round and equally reacting to light. EOMI. No scleral icterus. No conjunctival pallor. Normocephalic, atraumatic. No pharyngeal erythema. No thyromegaly. CARDIOVASCULAR: S1 and S2 present. No murmurs, rubs, or gallops. PULMONARY: Diminished air entry without any crackles or wheezing ABDOMEN: Soft, nontender, nondistended, normoactive bowel sounds. No palpable organomegaly. MUSCULOSKELETAL: No joint swelling or deformity. EXTREMITIES: No cyanosis, clubbing, or pedal edema. NEUROLOGICAL: Gross neurological examination did not reveal any focal deficits. SKIN: No rashes. Assessment and plan -Acute hypoxic respiratory failure requiring BiPAP on admission: No evidence of bacterial infection and medics will be discussed uterine as mentioned above. Patient is presently on 4 L of oxygen which he uses at home time. Patient does have COPD exacerbation, continue systemic steroids inhalational treatments -History of alpha-1 antitrypsin deficiency -Chronic hypoxic and hypercapnic respiratory failure secondary to COPD, alpha-1 antitrypsin deficiency -Atrial fibrillation with rapid ventricular rate can you with oral Cardizem and anticoagulation -Hypertension -Mild hyponatremia labs from today morning are still pending DVT prophylaxis: Patient already on Eliquis Objective - Vital Signs Vital signs: Vital Signs Temp 97.8 F 03/03/21 08:00 Pulse 83 03/03/21 08:05 Resp 23 03/03/21 04:00 BP 114/70 03/03/21 08:00 Pulse Ox 97 03/03/21 08:00 Intake & Output 03/02/21 03/03/21 03/03/21 18:59 06:59 18:59 Intake Total 3.167 240 Output Total 400 550 Balance 3.167 -400 -310 Weight 66.678 kg 65.8 kg Intake: Intake, IV Titration 3.167 Amount Diltiazem 125 mg In 3.167 Sodium Chloride 0.9% 100 ml @ 5 MG/HR 5 mls/hr IV .Q24H [facility] Rx#:[id number] Oral 240 Output: Urine 400 550 Other: Voiding Method Urinal - Labs CBC & Chem 7: 03/02/21 12:29 03/02/21 12:29 Labs: Abnormal Lab Results - Last 24 Hours (Table) 03/02/21 03/02/21 03/02/21 Range/Units 12:29 12:29 12:33 WBC 14.7 H (3.8-10.6) k/uL Hgb 12.8 L (13.0-17.5) gm/dL MCHC 30.8 L (31.0-37.0) g/dL Neutrophils # 12.0 H (1.3-7.7) k/uL VBG pH 7.44 H (7.31-7.41) VBG pCO2 65 H (37-51) mmHg VBG HCO3 43 H (24-28) mmol/L Sodium 133 L (137-145) mmol/L Chloride 83 L (98-107) mmol/L Carbon Dioxide 44 H* (22-30) mmol/L Creatinine 0.27 L (0.66-1.25) mg/dL Glucose 169 H (74-99) mg/dL POC Glucose (mg/dL) (75-99) mg/dL 03/02/21 03/03/21 03/03/21 Range/Units 20:35 06:01 11:44 WBC (3.8-10.6) k/uL Hgb (13.0-17.5) gm/dL MCHC (31.0-37.0) g/dL Neutrophils # (1.3-7.7) k/uL VBG pH (7.31-7.41) VBG pCO2 (37-51) mmHg VBG HCO3 (24-28) mmol/L Sodium (137-145) mmol/L Chloride (98-107) mmol/L Carbon Dioxide (22-30) mmol/L Creatinine (0.66-1.25) mg/dL Glucose (74-99) mg/dL POC Glucose (mg/dL) 158 H 142 H 288 H (75-99) mg/dL Microbiology - Last 24 Hours (Table) 03/02/21 16:59 Gram Stain - Preliminary Sputum Sputum Culture - Preliminary
--- NOTE | 2021-03-03 16:31 | P.CNPUL ---
History of Present Illness Consult date: 03/03/21 Requesting physician: Misha Perez Reason for consult: dyspnea, cough, COPD, hypoxemia, abnormal CXR/CT Chief complaint: Shortness of breath. History of present illness: Pulmonary consult dated 03/03/2021. 55-year-old male who presents to the emergency department via EMS, on March 02, at 12:15 in the afternoon, complaining of shortness of breath. The patient hasn't been feeling well for a couple days prior to his visit to the emergency department. The patient is well-known to our service. The patient has very severe/stage IV lung disease, with an FEV1 that is 19% of predicted. The patient denied any significant cough or phlegm production. No fever or chills. The patient denies any chest pain or chest discomfort. He apparently was using his nebulizer machine more frequently at home, and that seemed to help a bit, but not enough to keep him from coming to the emergency room. He was admitted with a diagnosis of COPD exacerbation, and atrial fibrillation with rapid ventri cular response. Recent lab data includes a white count 14.7, hematocrit 12.8, hematocrit 41.7, and a platelet count of 371,000. PT/INR PTT were all normal. Venous blood gas shows a baseline PaCO2 of 65. Sodium 133, potassium 4.1, chlorides 83, and CO2 44. Anion gap was 6 with a BUN of 11 and creatinine 0.27. Chest x-ray on admission in follow-up chest x-ray are reviewed. The first chest x-ray shows changes of COPD, with patchy bilateral infiltrates. A second chest x-ray shows primarily COPD changes. Infiltrates have significantly less than and suggest to me that, the first x-ray showed some congestive heart failure/fluid overload. Pneumonia would not have improved that quickly. Review of Systems REVIEW OF SYSTEMS: CONSTITUTIONAL: [Negative.] NEUROLOGIC: [ Negative.] HEENT: [ Negative.] CARDIAC: [Negative.] PULMONARY: Severe shortness of breath, both at rest and on exertion. GI: [Negative.] : [Negative.] RHEUMATOLOGIC: [ Negative.] IMMUNOLOGIC: [ Negative.] ENDOCRINE: [Negative. ] DERMATOLOGIC: [Negative.] Past Medical History Past Medical History: Atrial Fibrillation, COPD, Hypertension Additional Past Medical History / Comment(s): Alpha 1 antitrypsin deficiency, p ancreatitis. History of Any Multi-Drug Resistant Organisms: None Reported Past Surgical History: Tonsillectomy Additional Past Surgical History / Comment(s): Colonoscopy Past Anesthesia/Blood Transfusion Reactions: No Reported Reaction Past Psychological History: No Psychological Hx Reported Additional Psychological History / Comment(s): Pt resides with his spouse. He is independent. Smoking Status: Former smoker Past Alcohol Use History: None Reported Additional Past Alcohol Use History / Comment(s): Pt started smoking in 1983 and quit one year ago, 2019. Pt states he was a heavier drinker as a young adult then quit at age 27 for a time and now drinks on occasion. Past Drug Use History: None Reported - Past Family History Mother Family Medical History: Hypertension Additional Family Medical History / Comment(s): Hip/knee replacements. Mother in her sleep in her 70s. Father Family Medical History: CVA/TIA Additional Family Medical History / Comment(s): Father is . Medications and Allergies Home Medications Medication Instructions Recorded Confirmed Type Albuterol Nebulized [Ventolin 2.5 mg INHALATION RT-TID PRN 02/18/20 03/02/21 History Nebulized] Albuterol Sulfate [Ventolin HFA] 2 puff INHALATION RT-Q4H PRN 02/18/20 03/02/21 History Fluticasone/Umeclidin/Vilanter 1 puff INHALATION RT-DAILY 02/18/20 03/02/21 History [Trelegy Ellipta 100-62.5-25] Apixaban [Eliquis] 5 mg PO BID #60 tab 11/24/20 03/02/21 Rx Mirtazapine [Remeron] 7.5 mg PO HS 11/27/20 03/02/21 History Diltiazem Cd [Cardizem CD] 180 mg PO DAILY #30 cap.er.24h 12/01/20 03/02/21 Rx ALPRAZolam [Xanax] 0.5 mg PO TID PRN 01/23/21 03/02/21 History Loratadine [Claritin] 10 mg PO DAILY 01/23/21 03/02/21 History Melatonin 5 mg PO HS 01/23/21 03/02/21 History Ascorbic Acid [Vitamin C] 1,000 mg PO DAILY 03/02/21 03/02/21 History Cholecalciferol [Vitamin D3 (25 25 mcg PO DAILY 03/02/21 03/02/21 History Mcg = 1000 Iu)] Famotidine [Pepcid] 20 mg PO DAILY 03/02/21 03/02/21 History Furosemide [Lasix] 20 mg PO DAILY 03/02/21 03/02/21 History Ipratropium-Albuterol Nebulize 3 ml INHALATION RT-Q4H PRN 03/02/21 03/02/21 History [Duoneb 0.5 mg-3 mg/3 ml Soln] Multivitamins, Thera [Multivitamin 1 tab PO DAILY 03/02/21 03/02/21 History (formulary)] Potassium Chloride ER [K-Dur 10] 10 meq PO DAILY 03/02/21 03/02/21 History Sertraline [Zoloft] 25 mg PO HS 03/02/21 03/02/21 History Vitamin B Complex 1 cap PO DAILY 03/02/21 03/02/21 History predniSONE 10 mg PO DAILY 03/02/21 03/02/21 History Allergies Allergy/AdvReac Type Severity Reaction Status Date / Time ampicillin Allergy Unknown Verified 03/02/21 14:22 Childhood formoterol [From Perforomist] Allergy Anaphylaxis Verified 03/02/21 14:22 ipratropium Allergy Anaphylaxis Verified 03/02/21 14:22 Penicillins Allergy Unknown Verified 03/02/21 14:22 Childhood Physical Exam Osteopathic Statement: *. No significant issues noted on an osteopathic structural exam other than those noted in the History and Physical/Consult. Vitals: Vital Signs Temp Pulse Pulse Resp BP BP Pulse Ox 03/03/21 08:05 83 03/03/21 08:00 97.8 F 87 114/70 97 03/03/21 07:48 78 93 L 03/03/21 04:00 98.5 F 86 23 127/81 95 03/02/21 23:35 97.6 F 84 20 114/76 98 03/02/21 22:07 97.9 F 88 21 127/44 98 03/02/21 20:00 88 L 03/02/21 19:58 97.6 F 87 22 119/75 90 L 03/02/21 19:51 96 03/02/21 19:50 86 03/02/21 19:37 86 03/02/21 17:45 97.6 F 84 03/02/21 16:49 84 18 112/84 99 Intake and Output 03/03/21 03/03/21 03/03/21 06:59 14:59 22:59 Intake Total 480 Output Total 400 850 Balance -400 -370 Intake: Oral 480 Output: Urine 400 850 Other: Weight 65.8 kg No acute distress, oriented 3. Currently on 4 L nasal cannula. Saturations are in the low 90s. No obvious audible wheezing, use of accessory muscles, or conversational dyspnea. HEENT examination is grossly unremarkable. Neck supple. Full range of motion. No adenopathy thyromegaly or neck vein distention. Cardiovascular examination reveals regular rhythm rate. S1-S2 normal. No S3 or S4. No discernible murmur noted. Heart sounds are very distant. Heart rate 83 bpm. Lungs reveal diffuse scattered rhonchi and expiratory wheezes throughout. Breath sounds are equal bilaterally. There is prolongation on forced maneuver. No crackles are appreciated. Breath sounds are severely diminished bilaterally. Abdomen soft bowel sounds are heard. No masses or tenderness. Extremities are intact. No cyanosis clubbing or edema. Skin is without rash or lesion. Neurologic examination is brief but nonfocal. Results - Laboratory Findings CBC and BMP: 03/02/21 12:29 03/02/21 12:29 PT/INR, D-dimer PT 10.5 sec (9.0-12.0) 03/02/21 12:29 INR 1.0 (<1.2) 03/02/21 12:29 Abnormal lab findings: Abnormal Labs 03/02/21 03/02/21 03/02/21 12:29 12:29 12:33 WBC 14.7 H Hgb 12.8 L MCHC 30.8 L Neutrophils # 12.0 H VBG pH 7.44 H VBG pCO2 65 H VBG HCO3 43 H Sodium 133 L Chloride 83 L Carbon Dioxide 44 H* Creatinine 0.27 L Glucose 169 H POC Glucose (mg/dL) 03/02/21 03/03/21 03/03/21 20:35 06:01 11:44 WBC Hgb MCHC Neutrophils # VBG pH VBG pCO2 VBG HCO3 Sodium Chloride Carbon Dioxide Creatinine Glucose POC Glucose (mg/dL) 158 H 142 H 288 H - Diagnostic Findings Chest x-ray: image reviewed Assessment and Plan Assessment: Acute hypoxemic respiratory failure secondary to acute exacerbation of severe COPD. Severe/stage IV COPD, with an FEV1 percent that's 19% of predicted. Atrial fibrillation, chronic, with rapid ventricular response. History of hypertension. History of pancreatitis. History of of alpha-1 antitrypsin deficiency. Plan: Plan dated 03/03/2021. The patient should be on a short acting beta agonist, a short acting muscarinic antagonist, a long-acting beta agonist, and inhaled corticosteroid. I don't believe the patient would benefit from antibiotics at this time. I suspect the infiltrates that were seeing on chest x-ray, likely related to pulmonary vascular congestion and not infiltrate/pneumonia. Additional recommendations a nd suggestions are forthcoming. We will continue to follow. Prognosis is guarded. Medications are reviewed. Time with Patient: Greater than 30
[2021-03-03 16:59] LABS: Glucose,Whole Blood 144 mg/dL (75-99)
[2021-03-03] MEDS ORDERED: INSULIN DETEMIR (LEVEMIR) 100 UNIT/ML SYR SQ SCH (21:00)
[2021-03-03] MEDS: SERTRALINE 25 MG TAB PO SCH (22:40)
[2021-03-03] MEDS: MIRTAZAPINE 15 MG TAB PO SCH (22:40)
[2021-03-03 22:41] LABS: Glucose,Whole Blood 183 mg/dL (75-99)
[2021-03-04] MEDS: methylPREDNISolone SOD SUCCI 40 MG/ML 1 ML VIAL IV SCH ×2 (05:38→11:57)
[2021-03-04 07:29] LABS: Glucose,Whole Blood 174 mg/dL (75-99)
[2021-03-04] MEDS: FAMOTIDINE 20 MG TAB PO SCH (07:46)
[2021-03-04] MEDS: DILTIAZEM CD 180 MG CAP.ER.24H PO SCH (07:47)
[2021-03-04] MEDS: INSULIN ASPART (NovoLOG) 100 UNIT/ML VIAL SQ SCH ×2 (07:47→11:57)
[2021-03-04] MEDS: APIXABAN 5 MG TAB PO SCH (07:47)
[2021-03-04] MEDS: ALBUTEROL NEBULIZED 2.5 MG/3 ML INHALATION SCH ×2 (07:57→11:31)
[2021-03-04 08:01] VITALS: BP 130/58; TEMP 97.6
[2021-03-04] MEDS: NON FORMULARY DRUG (Fluticasone/Umeclidin/Vilanter [Trelegy Ellipta 100-62.5-25] 1 EACH Bl INHALATION SCH (09:19)
--- NOTE | 2021-03-04 10:59 | P.DS ---
Providers Date of admission: 03/02/21 13:47 Attending physician: Misha Perez Consults: 03/02/21 14:05 Consult Physician Urgent Consulting Provider: Simon Gaytan Consult Reason/Comments: dyspnea Do you want consulting provider notified?: Yes 03/02/21 14:06 Consult Physician Urgent Consulting Provider: Charles Lebron Consult Reason/Comments: a fib e rvr Do you want consulting provider notified?: Yes Primary care physician: [facility] Course: Patient is a pleasant 55-year-old male with known history of advanced COPD although an antitrypsin deficient in and smoking history until and year ago came in with complaints of cough and shortness of breath progressively worsening presently on BiPAP. Chest x-ray was done which showed alveolar infiltrate and white was read as atypical pneumonia need to be considered. Patient had a history of pseudomonas pneumonia in the past, patient was started on cefepime. Patient has some chronic lung disease including emphysema and possible pulmonary fibrosis, BNP is only 150. Patient doesn't have any fever or had minimal leukocytosis of 14.7, pro calcitonin is being obtained. Patient is also on azithromycin Patient does have history of atrial fibrillation is on anticoagulation with Eliquis. Patient was diagnosed with A. fib during his last hospitalization presently in A. fib initially was on Cardizem with a drop in blood pressure, patient was subsequently switched to metoprolol, with improved heart rate still in the flutter with 3 : 1 conduction. Patient is minimally hyponatremic. Patient did not take his oral Cardizem today morning. 03/03/2021 Patient is rate controlled at this time patient's beta rula was switched to Cardizem probably because of his advanced COPD. Patient is presently sinus rhythm. Patient's pro calcitonin level is very low which rules out any bacterial infection and will not require any antibiotics, cefepime and azithromycin will be discontinued. Patient is presently on 4 L of falls and significant improvement in his respiratory status probably can be transferred out to medical surgical floor from stepdown unit probably can be discharged tomorrow. Patient uses 4 L of oxygen at home. 03/04/2021 Patient is pretty status is at his baseline clinically doing well no much wheezing and exam patient will be discharged today on weaning dose of steroids. PHYSICAL EXAMINATION: GENERAL: The patient is alert on BiPAP mild respiratory distress,Well developed, well nourished. HEENT: Pupils are round and equally reacting to light. EOMI. No scleral icterus. No conjunctival pallor. Normocephalic, atraumatic. No pharyngeal erythema. No thyromegaly. CARDIOVASCULAR: S1 and S2 present. No murmurs, rubs, or gallops. PULMONARY: Diminished air entry without any crackles or wheezing ABDOMEN: Soft, nontender, nondistended, normoactive bowel sounds. No palpable organomegaly. MUSCULOSKELETAL: No joint swelling or deformity. EXTREMITIES: No cyanosis, clubbing, or pedal edema. NEUROLOGICAL: Gross neurological examination did not reveal any focal deficits. SKIN: No rashes. Assessment and plan -Acute hypoxic respiratory failure requiring BiPAP on admission: No evidence of bacterial infection Patient is presently on 4 L of oxygen which he uses at home time. Patient does have COPD exacerbation, continue systemic steroids inhalational treatments -History of alpha-1 antitrypsin deficiency -Chronic hypoxic and hypercapnic respiratory failure secondary to COPD, alpha-1 antitrypsin deficiency -Atrial fibrillation with rapid ventricular rate continue with oral Cardizem and anticoagulation -Hypertension -Mild hyponatremia Patient Condition at Discharge: Serious Plan - Discharge Summary Discharge Rx Participant: No New Discharge Prescriptions: New predniSONE 10 mg PO DAILY #30 tab Continue Vitamin B Complex 1 cap PO DAILY Multivitamins, Thera [Multivitamin (formulary)] 1 tab PO DAILY Ipratropium-Albuterol Nebulize [Duoneb 0.5 mg-3 mg/3 ml Soln] 3 ml INHALATION RT-Q4H PRN PRN Reason: Shortness Of Breath Ascorbic Acid [Vitamin C] 1,000 mg PO DAILY Sertraline [Zoloft] 25 mg PO HS Famotidine [Pepcid] 20 mg PO DAILY Cholecalciferol [Vitamin D3 (25 Mcg = 1000 Iu)] 25 mcg PO DAILY Changed predniSONE 10 mg PO DAILY #0 Discontinued Potassium Chloride ER [K-Dur 10] 10 meq PO DAILY Furosemide [Lasix] 20 mg PO DAILY No Action Fluticasone/Umeclidin/Vilanter [Trelegy Ellipta 100-62.5-25] 1 puff INHALATION RT-DAILY Albuterol Sulfate [Ventolin HFA] 2 puff INHALATION RT-Q4H PRN PRN Reason: Shortness Of Breath Albuterol Nebulized [Ventolin Nebulized] 2.5 mg INHALATION RT-TID PRN PRN Reason: Shortness Of Breath Melatonin 5 mg PO HS Apixaban [Eliquis] 5 mg PO BID #60 tab Mirtazapine [Remeron] 7.5 mg PO HS Diltiazem Cd [Cardizem CD] 180 mg PO DAILY #30 cap.er.24h Loratadine [Claritin] 10 mg PO DAILY ALPRAZolam [Xanax] 0.5 mg PO TID PRN PRN Reason: Anxiety Discharge Medication List Albuterol Nebulized [Ventolin Nebulized] 2.5 mg INHALATION RT-TID PRN 02/18/20 [History] Albuterol Sulfate [Ventolin HFA] 2 puff INHALATION RT-Q4H PRN 02/18/20 [History] Fluticasone/Umeclidin/Vilanter [Trelegy Ellipta 100-62.5-25] 1 puff INHALATION RT-DAILY 02/18/20 [History] Apixaban [Eliquis] 5 mg PO BID #60 tab 11/24/20 [Rx] Mirtazapine [Remeron] 7.5 mg PO HS 11/27/20 [History] Diltiazem Cd [Cardizem CD] 180 mg PO DAILY #30 cap.er.24h 12/01/20 [Rx] ALPRAZolam [Xanax] 0.5 mg PO TID PRN 01/23/21 [History] Loratadine [Claritin] 10 mg PO DAILY 01/23/21 [History] Melatonin 5 mg PO HS 01/23/21 [History] Ascorbic Acid [Vitamin C] 1,000 mg PO DAILY 03/02/21 [History] Cholecalciferol [Vitamin D3 (25 Mcg = 1000 Iu)] 25 mcg PO DAILY 03/02/21 [History] Famotidine [Pepcid] 20 mg PO DAILY 03/02/21 [History] Ipratropium-Albuterol Nebulize [Duoneb 0.5 mg-3 mg/3 ml Soln] 3 ml INHALATION RT-Q4H PRN 03/02/21 [History] Multivitamins, Thera [Multivitamin (formulary)] 1 tab PO DAILY 03/02/21 [History] Sertraline [Zoloft] 25 mg PO HS 03/02/21 [History] Vitamin B Complex 1 cap PO DAILY 03/02/21 [History] predniSONE 10 mg PO DAILY #0 03/04/21 [Rx] predniSONE 10 mg PO DAILY #30 tab 03/04/21 [Rx] Follow up Appointment(s)/Referral(s): Noé Starks MD [STAFF PHYSICIAN] - 4 Weeks Wolf Irizarry MD [Primary Care Provider] - 3 Days Lee Land DO [Doctor of Osteopathic Medicine] - 1 Week
[2021-03-04 11:32] LABS: Calcium 8.9 mg/dL (8.7-10.3); Carbon Dioxide >40.0 mmol/L (21.6-31.8); Chloride 87 mmol/L (96-109); Glucose 219 mg/dL (70-110); Non-African American GFR(CKD) 133.7 (60.0-200.0); Potassium 5.2 mmol/L (3.5-5.5); Sodium 134 mmol/L (135-145)
[2021-03-04 11:34] VITALS: RESP 18
[2021-03-04 11:40] LABS: Glucose,Whole Blood 233 mg/dL (75-99)
[2021-03-04 12:00] VITALS: PULSE 88
--- NOTE | 2021-03-04 15:55 | P.PN ---
Subjective Progress Note Date: 03/04/21 Principal diagnosis: Acute exacerbation of COPD 55-year-old male who presents to the emergency department via EMS, on March 02, at 12:15 in the afternoon, complaining of shortness of breath. The patient hasn't been feeling well for a couple days prior to his visit to the emergency department. The patient is well-known to our service. The patient has very severe/stage IV lung disease, with an FEV1 that is 19% of predicted. The patient denied any significant cough or phlegm production. No fever or chills. The patient denies any chest pain or chest discomfort. He apparently was using his nebulizer machine more frequently at home, and that seemed to help a bit, but not enough to keep him from coming to the emergency room. He was admitted with a diagnosis of COPD exacerbation, and atrial fibrillation with rapid ventricular response. Recent lab data includes a white count 14.7, hematocrit 12.8, hematocrit 41.7, and a platelet count of 371,000. PT/INR PTT were all normal. Venous blood gas shows a baseline PaCO2 of 65. Sodium 133, potassium 4.1, chlorides 83, and CO2 44. Anion gap was 6 with a BUN of 11 and creatinine 0.27. Chest x-ray on admission in follow-up chest x-ray are reviewed. The first chest x-ray shows changes of COPD, with patchy bilateral infiltrates. A second chest x-ray shows primarily COPD changes. Infiltrates have significantly less than and suggest to me that, the first x-ray showed some congestive heart failure/fluid overload. Pneumonia would not have improved that quickly. The patient is seen today 03/04/2021 in follow-up on the regular medical floor. He is currently resting comfortably in bed. Breathing easier today compared to yesterday. Alternating BiPAP with oxygen at 4 L/m per nasal cannula. He's been afebrile. Hemodynamically stable. Blood cultures reveal no growth to date. Sputum culture positive for gram-negative bacilli and sodium 134. Potassium 5.2. Chloride 87. Bicarb 40. Creatinine 0.4. He remains on albuterol, Trelegy, IV Solu-Medrol. Objective - Vital Signs Vital signs: Vital Signs Temp 97.6 F 03/04/21 08:00 Pulse 88 03/04/21 11:42 Resp 18 03/04/21 11:42 BP 130/58 03/04/21 08:00 Pulse Ox 100 03/04/21 08:00 Intake & Output 03/03/21 03/04/21 03/04/21 18:59 06:59 18:59 Intake Total 480 240 Output Total 850 1300 Balance -370 -1300 240 Weight 66 kg Intake: Oral 480 240 Output: Urine 850 1300 Other: Voiding Method Urinal Urinal # Voids 3 # Bowel Movements 0 - Exam GENERAL EXAM: Alert, pleasant 55-year-old gentleman, currently on 4 L nasal cannula alternating with BiPAP, comfortable in no apparent distress. HEAD: Normocephalic. EYES: Normal reaction of pupils, equal size. NOSE: Clear with pink turbinates. THROAT: No erythema or exudates. NECK: No masses, no JVD. CHEST: No chest wall deformity. LUNGS: Equal air entry with faint bilateral end expiratory wheeze, diminished. CVS: S1 and S2 normal with no audible murmur, regular rhythm. ABDOMEN: No hepatosplenomegaly, normal bowel sounds, no guarding or rigidity. SPINE: No scoliosis or deformity SKIN: No rashes CENTRAL NERVOUS SYSTEM: No focal deficits, tone is normal in all 4 extremities. EXTREMITIES: There is no peripheral edema. No clubbing, no cyanosis. Peripheral pulses are intact. - Labs CBC & Chem 7: 03/02/21 12:29 03/04/21 05:36 Labs: Abnormal Lab Results - Last 24 Hours (Table) 03/03/21 03/03/21 03/04/21 Range/Units 16:58 22:29 05:36 Sodium 134 L (135-145) mmol/L Chloride 87 L (96-109) mmol/L Carbon Dioxide >40.0 H* (21.6-31.8) mmol/L Creatinine 0.4 L (0.6-1.5) mg/dL BUN/Creatinine Ratio 47.50 H (12.00-20.00) Ratio Glucose 219 H (70-110) mg/dL POC Glucose (mg/dL) 144 H 183 H (75-99) mg/dL 03/04/21 03/04/21 Range/Units 06:52 11:35 Sodium (135-145) mmol/L Chloride (96-109) mmol/L Carbon Dioxide (21.6-31.8) mmol/L Creatinine (0.6-1.5) mg/dL BUN/Creatinine Ratio (12.00-20.00) Ratio Glucose (70-110) mg/dL POC Glucose (mg/dL) 174 H 233 H (75-99) mg/dL Microbiology - Last 24 Hours (Table) 03/02/21 12:48 Blood Culture - Preliminary Blood No Growth after 48 hours 03/02/21 12:48 Blood Culture - Preliminary Blood No Growth after 48 hours 03/02/21 16:59 Gram Stain - Preliminary Sputum Sputum Culture - Preliminary Gram Neg Bacilli Gram Neg Bacilli#2 Assessment and Plan Assessment: Acute hypoxemic respiratory failure secondary to acute exacerbation of severe COPD, sputum positive for gram-negative bacilli Severe/stage IV COPD, with an FEV1 percent that's 19% of predicted. Atrial fibrillation, chronic, with rapid ventricular response. History of hypertension. History of pancreatitis. History of of alpha-1 antitrypsin deficiency. Plan: The patient was seen and evaluated by Dr. Land He is cleared for discharge from the pulmonary standpoint Complete a course of antibiotics, Levaquin 100 mg 7 days Complete a prednisone taper Follow up in the office in 1-2 weeks' I, the cosigning physician, performed a history & physical examination of the patient. Lungs sounds with end expiratory wheeze, diminished. Maintaining good O2 saturations in the 90s on 4 L/m per nasal cannula alternating with BiPAP. I discussed the assessment and plan of care with my nurse practitioner, Estephania Aldridge. I attest to the above note as dictated by her.
[2021-03-04] MEDS ORDERED: LEVOFLOXACIN 500 MG TAB PO SCH (16:00)
== END 2021-03-04 16:09 | disposition home or self-care (01) | DRG 190 ==
LOC: EC 12:16 → 3SCARD 13:47 → 4SSUR 03-03 18:24
PROVIDERS: ADMIT Internal Medicine; ATTEND Internal Medicine
PROC: 5A09357 Assistance with Respiratory Ventilation, Less than 24 Consecutive Hours, Continuous Positive Airway Pressure (ICD-10-PCS; principal; 2021-03-02)
DX: J44.1 Chronic obstructive pulmonary disease with (acute) exacerbation (principal); J96.21 Acute and chronic respiratory failure with hypoxia; J96.22 Acute and chronic respiratory failure with hypercapnia; J84.9 Interstitial pulmonary disease, unspecified; E87.1 Hypo-osmolality and hyponatremia; Z79.01 Long term (current) use of anticoagulants; E88.01 Alpha-1-antitrypsin deficiency; I10 Essential (primary) hypertension; I27.20 Pulmonary hypertension, unspecified; I48.0 Paroxysmal atrial fibrillation; Z79.899 Other long term (current) drug therapy; Z82.49 Family history of ischemic heart disease and other diseases of the circulatory system; Z87.01 Personal history of pneumonia (recurrent); Z87.891 Personal history of nicotine dependence; Z20.822 Contact with and (suspected) exposure to COVID-19; Z99.81 Dependence on supplemental oxygen; Z88.0 Allergy status to penicillin; Z88.8 Allergy status to other drugs, medicaments and biological substances; Z82.3 Family history of stroke; Z86.19 Personal history of other infectious and parasitic diseases
CPT/HCPCS: 36415; 71045; 80048; 80053; 82803; 83605; 83735; 83880; 84145; 84439; 84443; 84481; 84484; 85025; 85610; 85730; 87040; 87070; 87077; 87186; 87205; 87635; 93005; 94640; 94660; 94760; 96374; 96375; 99291

== ENCOUNTER 2021-03-26 13:45 | Inpatient (IN) | payer OTHER ==
--- NOTE | 2021-03-26 14:40 | ED ---
General Adult HPI - General Chief complaint: Shortness of Breath Stated complaint: COPD Time Seen by Provider: 03/26/21 14:06 Source: patient, EMS Mode of arrival: EMS Limitations: no limitations - History of Present Illness Initial comments: Dictation was produced using [employer] dictation software. please excuse any grammatical, word or spelling errors. Chief Complaint: 55-year-old male with history of alpha-1 antitrypsin deficiency, A. fib, COPD and hypertension presents to the emergency department for weakness, cough and shortness of breath. History of Present Illness: She is 55-year-old male he has significant pulmonary comorbidities. Results today for several days of generalized weakness, cough shortness of breath. Denies any constitutional symptoms. Patient lives at home with his who is also a nurse. Patient wears 4 L of nasal cannula oxygen at home. 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 Takes multiple medications for his lungs and heart. He is on anticoagulation medications every controlling meds for his A. fib. noted some mild lower extremity pitting edema. The ROS documented in this emergency department record has been reviewed and confirmed by me. Those systems with pertinent positive or negative responses have been documented in the HPI. All other systems are other negative and/or noncontributory. PHYSICAL EXAM: General Impression: Alert and oriented x3, not in acute distress, thick green sputum at the bedside HEENT: Normocephalic atraumatic, extra-ocular movements intact, pupils equal and reactive to light bilaterally, mucous membranes moist. Cardiovascular: Heart regular rate and rhythm Chest: Able to complete full sentences, no retractions, no tachypnea, mild r honchi to the left lung base posteriorly Abdomen: abdomen soft, non-tender, non-distended, no organomegaly Musculoskeletal: Pulses present and equal in all extremities, no peripheral edema Motor: no focal deficits noted Neurological: CN II-XII grossly intact, no focal motor or sensory deficits noted Skin: Intact with no visualized rashes Psych: Normal affect and mood ED course: 55-year-old male with extensive pulmonary comorbidities presents to the emergency department for shortness of breath, generalized weakness and cough. Vital signs upon arrival shows a 3% on nonrebreather. Rest of vital signs within acceptable limits. Laboratory evaluation obtained. CBC unremarkable. No leukocytosis. Hemoglobin stable. Coag panel unremarkable. Metabolic panel shows sodium 126. Chest x- ray shows increasing pulmonary interstitial pneumonia. Patient given cefepime. Patient will be admitted. He requested we placed on BiPAP. Patient feels better on BiPAP. reports that he has history of pseudomonas pneumonia. Patient be admitted to telemetry with pulmonology on consult. EKG interpretation: Ventricular rate 91, A. fib, QRS 96, QTC 43. No NM prolongation, no QTC prolongation, no ST or T-wave changes noted. EKG compared to 03/02/2021 showing no changes. Overall, this EKG is unremarkable - Related Data Home Medications Medication Instructions Recorded Confirmed Albuterol Nebulized [Ventolin 2.5 mg INHALATION RT-TID PRN 02/18/20 03/02/21 Nebulized] Albuterol Sulfate [Ventolin HFA] 2 puff INHALATION RT-Q4H PRN 02/18/20 03/02/21 Fluticasone/Umeclidin/Vilanter 1 puff INHALATION RT-DAILY 02/18/20 03/02/21 [Trelegy Ellipta 100-62.5-25] Mirtazapine [Remeron] 7.5 mg PO HS 11/27/20 03/02/21 ALPRAZolam [Xanax] 0.5 mg PO TID PRN 01/23/21 03/02/21 Loratadine [Claritin] 10 mg PO DAILY 01/23/21 03/02/21 Melatonin 5 mg PO HS 01/23/21 03/02/21 Ascorbic Acid [Vitamin C] 1,000 mg PO DAILY 03/02/21 03/02/21 Cholecalciferol [Vitamin D3 (25 25 mcg PO DAILY 03/02/21 03/02/21 Mcg = 1000 Iu)] Famotidine [Pepcid] 20 mg PO DAILY 03/02/21 03/02/21 Ipratropium-Albuterol Nebulize 3 ml INHALATION RT-Q4H PRN 03/02/21 03/02/21 [Duoneb 0.5 mg-3 mg/3 ml Soln] Multivitamins, Thera [Multivitamin 1 tab PO DAILY 03/02/21 03/02/21 (formulary)] Sertraline [Zoloft] 25 mg PO HS 03/02/21 03/02/21 Vitamin B Complex 1 cap PO DAILY 03/02/21 03/02/21 Previous Rx's Medication Instructions Recorded Apixaban [Eliquis] 5 mg PO BID #60 tab 11/24/20 Diltiazem Cd [Cardizem CD] 180 mg PO DAILY #30 cap.er.24h 12/01/20 predniSONE 10 mg PO DAILY #0 03/04/21 predniSONE 10 mg PO DAILY #30 tab 03/04/21 Allergies Allergy/AdvReac Type Severity Reaction Status Date / Time ampicillin Allergy Unknown Verified 03/02/21 14:22 Childhood formoterol [From Perforomist] Allergy Anaphylaxis Verified 03/02/21 14:22 ipratropium Allergy Anaphylaxis Verified 03/02/21 14:22 Penicillins Allergy Unknown Verified 03/02/21 14:22 Childhood Review of Systems ROS Statement: Those systems with pertinent positive or pertinent negative responses have been documented in the HPI. ROS Other: All systems not noted in ROS Statement are negative. Past Medical History Past Medical History: Atrial Fibrillation, COPD, Hypertension Additional Past Medical History / Comment(s): Alpha 1 antitrypsin deficiency, pancreatitis. History of Any Multi-Drug Resistant Organisms: None Reported Past Surgical History: Tonsillectomy Additional Past Surgical History / Comment(s): Colonoscopy Past Anesthesia/Blood Transfusion Reactions: No Reported Reaction Past Psychological History: No Psychological Hx Reported Additional Psychological History / Comment(s): Pt resides with his spouse. He is independent. Smoking Status: Former smoker Past Alcohol Use History: None Reported Additional Past Alcohol Use History / Comment(s): Pt started smoking in 1983 and quit one year ago, 2019. Pt states he was a heavier drinker as a young adult then quit at age 27 for a time and now drinks on occasion. Past Drug Use History: None Reported - Past Family History Mother Family Medical History: Hypertension Additional Family Medical History / Comment(s): Hip/knee replacements. Mother in her sleep in her 70s. Father Family Medical History: CVA/TIA Additional Family Medical History / Comment(s): Father is . General Exam Limitations: no limitations Course Vital Signs 03/26/21 03/26/21 03/26/21 13:50 13:55 16:21 Pulse Rate 67 86 82 Respiratory 20 20 24 Rate Blood Pressure 141/89 129/84 O2 Sat by Pulse 83 L 97 89 L Oximetry Medical Decision Making - Lab Data Result diagrams: 03/26/21 14:41 03/26/21 14:41 Lab Results 03/26/21 03/26/21 03/26/21 Range/Units 14:41 14:41 14:41 WBC 10.2 (3.8-10.6) k/uL RBC 4.64 (4.30-5.90) m/uL Hgb 13.9 (13.0-17.5) gm/dL Hct 43.5 (39.0-53.0) % MCV 93.7 (80.0-100.0) fL MCH 30.0 (25.0-35.0) pg MCHC 32.0 (31.0-37.0) g/dL RDW 14.2 (11.5-15.5) % Plt Count 344 (150-450) k/uL MPV 7.5 Neutrophils % 78 % Lymphocytes % 10 % Monocytes % 9 % Eosinophils % 3 % Basophils % 0 % Neutrophils # 7.9 H (1.3-7.7) k/uL Lymphocytes # 1.0 (1.0-4.8) k/uL Monocytes # 0.9 (0-1.0) k/uL Eosinophils # 0.3 (0-0.7) k/uL Basophils # 0.1 (0-0.2) k/uL PT 10.3 (9.0-12.0) sec INR 1.0 (<1.2) APTT 24.6 (22.0-30.0) sec VBG pH (7.31-7.41) VBG pCO2 (37-51) mmHg VBG HCO3 (24-28) mmol/L Sodium 126 L (137-145) mmol/L Potassium 4.7 (3.5-5.1) mmol/L Chloride 78 L (98-107) mmol/L Carbon Dioxide 40 H (22-30) mmol/L Anion Gap 8 mmol/L BUN 11 (9-20) mg/dL Creatinine 0.33 L (0.66-1.25) mg/dL Est GFR (CKD-EPI)AfAm >90 (>60 ml/min/1.73 sqM) Est GFR (CKD-EPI)NonAf >90 (>60 ml/min/1.73 sqM) Glucose 121 H (74-99) mg/dL Plasma Lactic Acid Andrei (0.7-2.0) mmol/L Calcium 9.0 (8.4-10.2) mg/dL Magnesium 1.8 (1.6-2.3) mg/dL Total Bilirubin 0.4 (0.2-1.3) mg/dL AST 24 (17-59) U/L ALT 27 (4-49) U/L Alkaline Phosphatase 149 H (38-126) U/L Troponin I (0.000-0.034) ng/mL Total Protein 6.8 (6.3-8.2) g/dL Albumin 3.9 (3.5-5.0) g/dL 03/26/21 03/26/21 03/26/21 Range/Units 14:41 14:41 14:41 WBC (3.8-10.6) k/uL RBC (4.30-5.90) m/uL Hgb (13.0-17.5) gm/dL Hct (39.0-53.0) % MCV (80.0-100.0) fL MCH (25.0-35.0) pg MCHC (31.0-37.0) g/dL RDW (11.5-15.5) % Plt Count (150-450) k/uL MPV Neutrophils % % Lymphocytes % % Monocytes % % Eosinophils % % Basophils % % Neutrophils # (1.3-7.7) k/uL Lymphocytes # (1.0-4.8) k/uL Monocytes # (0-1.0) k/uL Eosinophils # (0-0.7) k/uL Basophils # (0-0.2) k/uL PT (9.0-12.0) sec INR (<1.2) APTT (22.0-30.0) sec VBG pH 7.41 (7.31-7.41) VBG pCO2 65 H (37-51) mmHg VBG HCO3 41 H (24-28) mmol/L Sodium (137-145) mmol/L Potassium (3.5-5.1) mmol/L Chloride (98-107) mmol/L Carbon Dioxide (22-30) mmol/L Anion Gap mmol/L BUN (9-20) mg/dL Creatinine (0.66-1.25) mg/dL Est GFR (CKD-EPI)AfAm (>60 ml/min/1.73 sqM) Est GFR (CKD-EPI)NonAf (>60 ml/min/1.73 sqM) Glucose (74-99) mg/dL Plasma Lactic Acid Andrei <0.5 L (0.7-2.0) mmol/L Calcium (8.4-10.2) mg/dL Magnesium (1.6-2.3) mg/dL Total Bilirubin (0.2-1.3) mg/dL AST (17-59) U/L ALT (4-49) U/L Alkaline Phosphatase (38-126) U/L Troponin I <0.012 (0.000-0.034) ng/mL Total Protein (6.3-8.2) g/dL Albumin (3.5-5.0) g/dL Disposition Clinical Impression: Pneumonia Disposition: ADMITTED IP TO THIS [facility] Condition: Fair Referrals: Wolf Irizarry MD [Primary Care Provider] - 1-2 days
[2021-03-26 14:55] LABS: VBG PH 7.41 (7.31-7.41)
[2021-03-26 15:04] LABS: Partial Thromboplastin Time 24.6 sec (22.0-30.0); Prothrombin Time 10.3 sec (9.0-12.0)
[2021-03-26 15:07] LABS: ALT 27 U/L (4-49); AST 24 U/L (17-59); African American GFR (CKD) >90 (>60 ml/min/1.73 sqM); Albumin 3.9 g/dL (3.5-5.0); Alkaline Phosphatase 149 U/L (38-126); Anion Gap 8 mmol/L; Blood Urea Nitrogen 11 mg/dL (9-20); Chloride 78 mmol/L (98-107); Glucose 121 mg/dL (74-99); Magnesium 1.8 mg/dL (1.6-2.3); Non-African American GFR(CKD) >90 (>60 ml/min/1.73 sqM); Potassium 4.7 mmol/L (3.5-5.1); Sodium 126 mmol/L (137-145); Total Bilirubin 0.4 mg/dL (0.2-1.3); Total Protein 6.8 g/dL (6.3-8.2)
[2021-03-26 15:17] LABS: Carbon Dioxide 40 mmol/L (22-30)
[2021-03-26 15:19] LABS: Basophils # (A) 0.1 k/uL (0-0.2); Basophils % (A) 0 %; Eosinophils # (A) 0.3 k/uL (0-0.7); Eosinophils % (A) 3 %; HCT 43.5 % (39.0-53.0); HGB 13.9 gm/dL (13.0-17.5); Lymphocytes % (A) 10 %; MCV 93.7 fL (80.0-100.0); Mean Platelet Volume 7.5; Monocytes # (A) 0.9 k/uL (0-1.0); Monocytes % (A) 9 %; Neutrophils # (A) 7.9 k/uL (1.3-7.7); Neutrophils % (A) 78 %; Platelet Count 344 k/uL (150-450); RBC 4.64 m/uL (4.30-5.90); RDW 14.2 % (11.5-15.5); WBC 10.2 k/uL (3.8-10.6)
--- NOTE | 2021-03-26 16:39 | XR ---
EXAMINATION TYPE: XR chest 1V portable DATE OF EXAM: 03/26/2021 COMPARISON: 03/03/2021 HISTORY: COPD TECHNIQUE: Single view FINDINGS: There is pulmonary interstitial edema. Heart size is normal. There is a diffuse nodular inf iltrates throughout the lungs with calcification. This is probably old granulomatous disease. There a re no hilar masses. There are chest leads. There is flattening of the diaphragm. IMPRESSION: Increasing pulmonary interstitial pneumonia compared to old exam. There is evidence of un derlying COPD.
[2021-03-26] MEDS ORDERED: CEFEPIME 2 GM in SODIUM CHLORIDE 0.9% 100 ML IVPB STA (16:43)
[2021-03-26] MEDS ORDERED: ACETAMINOPHEN TAB 325 MG TAB PO PRN (16:49)
[2021-03-26] MEDS ORDERED: NALOXONE 0.4 MG/ML 1 ML VIAL IV PRN (16:49)
[2021-03-26] MEDS ORDERED: ONDANSETRON 4 MG/2 ML VIAL IVP PRN (16:49)
[2021-03-26] MEDS ORDERED: DEXAMETHASONE SOD PHOSPHATE 10 MG/ML 1 ML VIAL IV STA (16:55)
[2021-03-26] MEDS: SODIUM CHLORIDE 0.9% 1,000 ML IV SCH (20:53)
[2021-03-26] MEDS ORDERED: ALBUTEROL NEBULIZED 2.5 MG/3 ML INHALATION PRN ×2 (21:17)
[2021-03-26] MEDS: ALPRAZolam 0.5 MG TAB PO PRN (22:46)
[2021-03-26] MEDS: MELATONIN 5 MG TABLET PO SCH (22:47)
[2021-03-26] MEDS: MIRTAZAPINE 15 MG TAB PO SCH (22:47)
[2021-03-26] MEDS: APIXABAN 5 MG TAB PO SCH (22:47)
[2021-03-27] MEDS ORDERED: DILTIAZEM 125 MG in SODIUM CHLORIDE 0.9% 100 ML IV SCH (03:30)
[2021-03-27] MEDS: SODIUM CHLORIDE 0.9% 1,000 ML IV SCH (06:25)
[2021-03-27 07:45] LABS: HCT 41.4 % (39.0-53.0); HGB 13.1 gm/dL (13.0-17.5); MCH 29.7 pg (25.0-35.0); MCHC 31.6 g/dL (31.0-37.0); MCV 93.9 fL (80.0-100.0); Mean Platelet Volume 6.9; Platelet Count 343 k/uL (150-450); RBC 4.41 m/uL (4.30-5.90); RDW 14.2 % (11.5-15.5); WBC 6.3 k/uL (3.8-10.6)
[2021-03-27 07:53] LABS: African American GFR (CKD) >90 (>60 ml/min/1.73 sqM); Blood Urea Nitrogen 14 mg/dL (9-20); Calcium 8.6 mg/dL (8.4-10.2); Chloride 83 mmol/L (98-107); Glucose 151 mg/dL (74-99); Non-African American GFR(CKD) >90 (>60 ml/min/1.73 sqM); Potassium 5.1 mmol/L (3.5-5.1); Sodium 128 mmol/L (137-145)
[2021-03-27 08:00] LABS: Anion Gap 7 mmol/L
[2021-03-27] MEDS ORDERED: VILANTER INHALATION SCH (08:00)
[2021-03-27] MEDS ORDERED: UMECLIDIN BL INHALATION SCH (08:00)
[2021-03-27] MEDS ORDERED: methylPREDNISolone SOD SUCCI 40 MG/ML 1 ML VIAL IV SCH (08:00)
[2021-03-27] MEDS ORDERED: FLUTICASONE INHALATION SCH (08:00)
[2021-03-27 08:02] LABS: Carbon Dioxide 38 mmol/L (22-30)
--- NOTE | 2021-03-27 08:45 | P.HPIM ---
History of Present Illness Patient is a pleasant 55-year-old male with a history of alpha 1 antitrypsin deficiency COPD quit smoking in 2019, came in with complaints of severe shortness of breath and patient is presently on BiPAP patient usually uses 4 L of oxygen at home. Patient had a chest x-ray which didn't show any pneumonia patient had multiple hospitalizations for COPD exacerbation patient is presently in A. fib and requiring Cardizem at this time. Patient has been hyponatremic probably because of hyperkalemia and patient receiving IV fluids at this time. Patient will be started on systemic steroids. Patient was comparing of cough unable to get much of the history because of patient being on BiPAP. Patient is bringing up but doesn't know cause of phlegm. Chest x-ray was read as an tissue she'll infiltrates for some reason I'm unable to open the chest x-ray. Patient never received cold vaccine Covid 19 PCR will be ordered REVIEW OF SYSTEMS: The rest of the review of systems were negative except those mentioned above unable to obtain most of the review of systems. PHYSICAL EXAMINATION: GENERAL: The patient is alert and oriented x3, not in any acute distress. Well developed, well nourished. HEENT: Pupils are round and equally reacting to light. EOMI. No scleral icterus. No conjunctival pallor. Normocephalic, atraumatic. No pharyngeal erythema. No thyromegaly. CARDIOVASCULAR: S1 and S2 present. No murmurs, rubs, or gallops. PULMONARY: Diminished air entry with mild expiratory wheezing ABDOMEN: Soft, nontender, nondistended, normoactive bowel sounds. No palpable organomegaly. MUSCULOSKELETAL: No joint swelling or deformity. EXTREMITIES: No cyanosis, clubbing, or pedal edema. NEUROLOGICAL: Gross neurological examination did not reveal any focal deficits. SKIN: No rashes. Assessment and plan -Acute on chronic hypercapnic and hypoxic respiratory failure secondary to COPD exacerbation patient has alpha-1 antitrypsin deficiency will rule out Covid 19. Patient doesn't have any fevers. Denuded BiPAP support pulmonary was consulted. Patient was started on systemic steroids continue with inhalational treatments. -Atrial fibrillation with rapid ventricular rate precipitated by hypoxemia patient is on IV Cardizem cardiology will be consulted IV Cardizem will will read the patient usually uses for Cardizem at home, patient is on anti- correlation with Eliquis which will resume -Hyperlipidemia Hyponatremia IV fluids and repeat basic metabolic profile tomorrow -GI prophylaxis with Pepcid -Hypertension DVT prophylaxis: On Eliquis Past Medical History Past Medical History: Atrial Fibrillation, COPD, Hypertension Additional Past Medical History / Comment(s): Alpha 1 antitrypsin deficiency, pancreatitis. History of Any Multi-Drug Resistant Organisms: None Reported Past Surgical History: Tonsillectomy Additional Past Surgical History / Comment(s): Colonoscopy Past Anesthesia/Blood Transfusion Reactions: No Reported Reaction Past Psychological History: No Psychological Hx Reported Additional Psychological History / Comment(s): Pt resides with his spouse. He is independent. Smoking Status: Former smoker Past Alcohol Use History: None Reported Additional Past Alcohol Use History / Comment(s): Pt started smoking in 1983 and quit one year ago, 2019. Pt states he was a heavier drinker as a young adult th en quit at age 27 for a time and now drinks on occasion. Past Drug Use History: None Reported - Past Family History Mother Family Medical History: Hypertension Additional Family Medical History / Comment(s): Hip/knee replacements. Mother in her sleep in her 70s. Father Family Medical History: CVA/TIA Additional Family Medical History / Comment(s): Father is . Medications and Allergies Home Medications Medication Instructions Recorded Confirmed Type Albuterol Nebulized [Ventolin 2.5 mg INHALATION RT-TID PRN 02/18/20 03/26/21 History Nebulized] Albuterol Sulfate [Ventolin HFA] 2 puff INHALATION RT-Q4H PRN 02/18/20 03/26/21 History Fluticasone/Umeclidin/Vilanter 1 puff INHALATION RT-DAILY 02/18/20 03/26/21 History [Trelegy Ellipta 100-62.5-25] Apixaban [Eliquis] 5 mg PO BID #60 tab 11/24/20 03/26/21 Rx Mirtazapine [Remeron] 7.5 mg PO HS 11/27/20 03/26/21 History Diltiazem Cd [Cardizem CD] 180 mg PO DAILY #30 cap.er.24h 12/01/20 03/26/21 Rx ALPRAZolam [Xanax] 0.5 mg PO TID PRN 01/23/21 03/26/21 History Loratadine [Claritin] 10 mg PO DAILY 01/23/21 03/26/21 History Melatonin 5 mg PO HS 01/23/21 03/26/21 History Ascorbic Acid [Vitamin C] 1,000 mg PO DAILY 03/02/21 03/26/21 History Cholecalciferol [Vitamin D3 (25 25 mcg PO DAILY 03/02/21 03/26/21 History Mcg = 1000 Iu)] Famotidine [Pepcid] 20 mg PO DAILY 03/02/21 03/26/21 History Ipratropium-Albuterol Nebulize 3 ml INHALATION RT-Q4H PRN 03/02/21 03/26/21 History [Duoneb 0.5 mg-3 mg/3 ml Soln] Multivitamins, Thera [Multivitamin 1 tab PO DAILY 03/02/21 03/26/21 History (formulary)] Vitamin B Complex 1 cap PO DAILY 03/02/21 03/26/21 History Sertraline [Zoloft] 50 mg PO DAILY 03/26/21 03/26/21 History Allergies Allergy/AdvReac Type Severity Reaction Status Date / Time ampicillin Allergy Unknown Verified 03/26/21 17:45 Childhood formoterol [From Perforomist] Allergy Anaphylaxis Verified 03/26/21 17:45 ipratropium Allergy Anaphylaxis Verified 03/26/21 17:45 Penicillins Allergy Unknown Verified 03/26/21 17:45 Childhood Physical Exam Vitals: Vital Signs Temp Pulse Pulse Resp BP BP Pulse Ox 03/27/21 04:00 98.1 F 107 H 17 108/53 90 L 03/27/21 03:05 170 H 18 119/74 90 L 03/27/21 00:00 98.5 F 90 19 151/94 93 L 03/26/21 20:20 20 89 L 03/26/21 20:00 97.8 F 97 17 151/73 93 L 03/26/21 18:00 81 24 128/82 92 L 03/26/21 16:21 82 24 129/84 89 L 03/26/21 13:55 86 20 97 03/26/21 13:50 67 20 141/89 83 L Intake and Output 03/26/21 03/27/21 03/27/21 22:59 06:59 14:59 Intake Total 120 120 240 Output Total 450 1200 Balance -330 -1080 240 Intake: Oral 120 120 240 Output: Urine 450 1200 Other: Voiding Method Urinal Urinal # Voids 1 1 Weight 62.142 kg 63 kg Results CBC & Chem 7: 03/27/21 06:48 03/27/21 06:48 Labs: Abnormal Lab Results - Last 24 Hours (Table) 03/26/21 03/26/21 03/26/21 Range/Units 14:41 14:41 14:41 Neutrophils # 7.9 H (1.3-7.7) k/uL VBG pCO2 (37-51) mmHg VBG HCO3 (24-28) mmol/L Sodium 126 L (137-145) mmol/L Chloride 78 L (98-107) mmol/L Carbon Dioxide 40 H (22-30) mmol/L Creatinine 0.33 L (0.66-1.25) mg/dL Glucose 121 H (74-99) mg/dL Plasma Lactic Acid Andrei <0.5 L (0.7-2.0) mmol/L Alkaline Phosphatase 149 H (38-126) U/L 03/26/21 03/27/21 Range/Units 14:41 06:48 Neutrophils # (1.3-7.7) k/uL VBG pCO2 65 H (37-51) mmHg VBG HCO3 41 H (24-28) mmol/L Sodium 128 L (137-145) mmol/L Chloride 83 L (98-107) mmol/L Carbon Dioxide 38 H (22-30) mmol/L Creatinine 0.37 L (0.66-1.25) mg/dL Glucose 151 H (74-99) mg/dL Plasma Lactic Acid Andrei (0.7-2.0) mmol/L Alkaline Phosphatase (38-126) U/L Thrombosis Risk Factor Assmnt - Choose All That Apply Each Factor Represents 1 point: Age 41-60 years Thrombosis Risk Factor Assessment Total Risk Factor Score: 1 Thrombosis Risk Factor Assessment Level: Low Risk
[2021-03-27] MEDS ORDERED: IPRATROPIUM-ALBUTEROL 3 ML NEB INHALATION PRN (08:53)
[2021-03-27] MEDS: LORATADINE 10 MG TAB PO SCH (08:58)
[2021-03-27] MEDS: SERTRALINE 50 MG TAB PO SCH (08:58)
[2021-03-27] MEDS: MULTIVITAMINS, THERA 1 EACH TAB PO SCH (08:58)
[2021-03-27] MEDS: CEFEPIME 2 GM in SODIUM CHLORIDE 0.9% 100 ML IVPB SCH ×2 (08:58→20:17)
[2021-03-27] MEDS: CHOLECALCIFEROL 25 MCG (1000 IU) TABLET PO SCH (08:58)
[2021-03-27] MEDS: FAMOTIDINE 20 MG TAB PO SCH (08:58)
[2021-03-27] MEDS: APIXABAN 5 MG TAB PO SCH ×2 (08:58→20:16)
[2021-03-27] MEDS ORDERED: NON FORMULARY DRUG (Vitamin B Complex [Vitamin B Complex] 1 EACH Capsule) PO SCH (09:00)
[2021-03-27] MEDS ORDERED: DILTIAZEM CD 180 MG CAP.ER.24H PO SCH (09:00)
[2021-03-27] MEDS: IPRATROPIUM-ALBUTEROL 3 ML NEB INHALATION SCH ×3 (11:22→18:49)
[2021-03-27] MEDS ORDERED: FUROSEMIDE 10 MG/ML 4 ML VIAL IV STA (11:42)
--- NOTE | 2021-03-27 11:51 | P.CNPUL ---
History of Present Illness Consult date: 03/27/21 Requesting physician: Misha Perez Reason for consult: dyspnea Chief complaint: Dyspnea History of present illness: This is a 55-year-old white male patient who is well-known to our practice for his history of severe COPD/emphysema, alpha-1 antitrypsin deficiency, with a baseline FEV1 of 19% of predicted. he follows with Dr. Gaytan in the pulmonary clinic. Patient is on APAP's machine at home. He is on a combination of Trelegy Ellipta, nebulized DuoNeb, and patient has a rescue inhaler. He was considered for lung reduction surgery at one point, he underwent evaluation by Dr. Gaytan and the [facility], however in view of his significant CO2 retention he was deemed to be a poor candidate. he is an ex-smoker, he quit smoking a year ago, prior to that he smoked for 36 years 1 pack a day, in addition to that he had smoked marijuana. His other medical history includes hypertension, paroxysmal A. fib and patient is on Eliquis for anticoagulation on an outpatient basis. Patient had pseudomonal pulmonary infections in the recent past. On 03/26/2021 patient came into the emergency department per EMS for elevation of weakness, cough and shortness of breath. Denied any fever or chills, denied any hemoptysis. Patient lives at home with his who is also a nurse. He normally wears 4 L of oxygen on a regular basis. His reports mild lower extremity pitting edema. He reports coughing up some green colored sputum. Chest x-ray showed increasing pulmonary interstitial pneumonia. His CBC was unremarkable, no evidence of leukocytosis, hemoglobin was stable, coagulation panel was unremarkable, metabolic panel showed a sodium of 126. Potassium is 4.7, chloride was 78, CO2 was 40, BUN was 11, creatinine 0.3, plasma lactic acid is less than 0.5, troponin was less than 0.012, proBNP was 191. COVID-19 PCR was negative. he is in atrial fibrillation, and had an episode of a rapid ventricular response with a heart rate up to 170. He was started on Cardizem infusion currently at 5 mg per hour, his 0.9 and is infusing at a rate of 75 ML per hour, he did wear BiPAP support last night with pressure of 12/5, and FiO2 of 40%, he is currently on nasal cannula, he is short of breath with any exertion, and conversation, but appears to be in no acute distress. He was started on cefepime, he was started on nebulized treatments and IV steroids. His heart rate is currently better controlled. His heart rate is 92 BPM Review of Systems All systems: negative Constitutional: Denies chills, Denies fever Eyes: denies blurred vision, denies pain Ears, nose, mouth and throat: Denies headache, Denies sore throat Cardiovascular: Denies chest pain, Denies shortness of breath Respiratory: Reports cough, Reports cough with sputum, Reports dyspnea Gastrointestinal: Denies abdominal pain, Denies diarrhea, Denies nausea, Denies vomiting Musculoskeletal: Denies myalgias Integumentary: Denies pruritus, Denies rash Neurological: Denies numbness, Denies weakness Psychiatric: Denies anxiety, Denies depression Endocrine: Denies fatigue, Denies weight change Past Medical History Past Medical History: Atrial Fibrillation, COPD, Hypertension Additional Past Medical History / Comment(s): Alpha 1 antitrypsin deficiency, pancreatitis. History of Any Multi-Drug Resistant Organisms: None Reported Past Surgical History: Tonsillectomy Additional Past Surgical History / Comment(s): Colonoscopy Past Anesthesia/Blood Transfusion Reactions: No Reported Reaction Past Psychological History: No Psychological Hx Reported Additional Psychological History / Comment(s): Pt resides with his spouse. He is independent. Smoking Status: Former smoker Past Alcohol Use History: None Reported Additional Past Alcohol Use History / Comment(s): Pt started smoking in 1983 and quit one year ago, 2019. Pt states he was a heavier drinker as a young adult then quit at age 27 for a time and now drinks on occasion. Past Drug Use History: None Reported - Past Family History Mother Family Medical History: Hypertension Additional Family Medical History / Comment(s): Hip/knee replacements. Mother in her sleep in her 70s. Father Family Medical History: CVA/TIA Additional Family Medical History / Comment(s): Father is . Medications and Allergies Home Medications Medication Instructions Recorded Confirmed Type Albuterol Nebulized [Ventolin 2.5 mg INHALATION RT-TID PRN 02/18/20 03/26/21 History Nebulized] Albuterol Sulfate [Ventolin HFA] 2 puff INHALATION RT-Q4H PRN 02/18/20 03/26/21 History Fluticasone/Umeclidin/Vilanter 1 puff INHALATION RT-DAILY 02/18/20 03/26/21 History [Eren Ellipta 100-62.5-25] Apixaban [Eliquis] 5 mg PO BID #60 tab 11/24/20 03/26/21 Rx Mirtazapine [Remeron] 7.5 mg PO HS 11/27/20 03/26/21 History Diltiazem Cd [Cardizem CD] 180 mg PO DAILY #30 cap.er.24h 12/01/20 03/26/21 Rx ALPRAZolam [Xanax] 0.5 mg PO TID PRN 01/23/21 03/26/21 History Loratadine [Claritin] 10 mg PO DAILY 01/23/21 03/26/21 History Melatonin 5 mg PO HS 01/23/21 03/26/21 History Ascorbic Acid [Vitamin C] 1,000 mg PO DAILY 03/02/21 03/26/21 History Cholecalciferol [Vitamin D3 (25 25 mcg PO DAILY 03/02/21 03/26/21 History Mcg = 1000 Iu)] Famotidine [Pepcid] 20 mg PO DAILY 03/02/21 03/26/21 History Ipratropium-Albuterol Nebulize 3 ml INHALATION RT-Q4H PRN 03/02/21 03/26/21 History [Duoneb 0.5 mg-3 mg/3 ml Soln] Multivitamins, Thera [Multivitamin 1 tab PO DAILY 03/02/21 03/26/21 History (formulary)] Vitamin B Complex 1 cap PO DAILY 03/02/21 03/26/21 History Sertraline [Zoloft] 50 mg PO DAILY 03/26/21 03/26/21 History Allergies Allergy/AdvReac Type Severity Reaction Status Date / Time ampicillin Allergy Unknown Verified 03/26/21 17:45 Childhood formoterol [From Perforomist] Allergy Anaphylaxis Verified 03/26/21 17:45 ipratropium Allergy Anaphylaxis Verified 03/26/21 17:45 Penicillins Allergy Unknown Verified 03/26/21 17:45 Childhood Physical Exam Vitals: Vital Signs Temp Pulse Pulse Resp BP BP Pulse Ox 03/27/21 04:00 98.1 F 107 H 17 108/53 90 L 03/27/21 03:05 170 H 18 119/74 90 L 03/27/21 00:00 98.5 F 90 19 151/94 93 L 03/26/21 20:20 20 89 L 03/26/21 20:00 97.8 F 97 17 151/73 93 L 03/26/21 18:00 81 24 128/82 92 L 03/26/21 16:21 82 24 129/84 89 L 03/26/21 13:55 86 20 97 03/26/21 13:50 67 20 141/89 83 L Intake and Output 03/26/21 03/27/21 03/27/21 22:59 06:59 14:59 Intake Total 120 120 240 Output Total 450 1200 Balance -330 -1080 240 Intake: Oral 120 120 240 Output: Urine 450 1200 Other: Voiding Method Urinal Urinal # Voids 1 1 Weight 62.142 kg 63 kg GENERAL EXAM: Alert, very pleasant, 55-year-old white male, 4 L of oxygen with pulse ox of 95%, was recently on BiPAP support with pressures of 12/5 and FiO2 of 40%, and has since improved and was able to switch over to nasal cannula and tolerating it well so far comfortable in no apparent distress. HEAD: Normocephalic/atraumatic. EYES: Normal reaction of pupils, equal size. Conjunctiva pink, sclera white. NOSE: Clear with pink turbinates. THROAT: No erythema or exudates. NECK: No masses, no JVD, no thyroid enlargement, no adenopathy. CHEST: No chest wall deformity. Symmetrical expansion. LUNGS: Equal air entry with diffuse coarse crackles, anteriorly and posteriorly, overall diminished breath sounds bilaterally CVS: Regular rate and rhythm, normal S1 and S2, no gallops, no murmurs, no rubs ABDOMEN: Soft, nontender. No hepatosplenomegaly, normal bowel sounds, no guarding or rigidity. EXTREMITIES: No clubbing, no edema, no cyanosis, 2+ pulses and upper and lower extremities. MUSCULOSKELETAL: Muscle strength and tone normal. SPINE: No scoliosis or deformity SKIN: No rashes CENTRAL NERVOUS SYSTEM: Alert and oriented -3. No focal deficits, tone is normal in all 4 extremities. PSYCHIATRIC: Alert and oriented -3. Appropriate affect. Intact judgment and insight. Results - Laboratory Findings CBC and BMP: 03/27/21 06:48 03/27/21 06:48 PT/INR, D-dimer PT 10.3 sec (9.0-12.0) 03/26/21 14:41 INR 1.0 (<1.2) 03/26/21 14:41 Abnormal lab findings: Abnormal Labs 03/26/21 03/26/21 03/26/21 14:41 14:41 14:41 Neutrophils # 7.9 H VBG pCO2 VBG HCO3 Sodium 126 L Chloride 78 L Carbon Dioxide 40 H Creatinine 0.33 L Glucose 121 H Plasma Lactic Acid Andrei <0.5 L Alkaline Phosphatase 149 H 03/26/21 03/27/21 14:41 06:48 Neutrophils # VBG pCO2 65 H VBG HCO3 41 H Sodium 128 L Chloride 83 L Carbon Dioxide 38 H Creatinine 0.37 L Glucose 151 H Plasma Lactic Acid Andrei Alkaline Phosphatase - Diagnostic Findings Chest x-ray: report reviewed, image reviewed Additional studies: EKG reviewed Assessment and Plan Plan: Assessment: #1. Acute on chronic hypoxic and hypercapnic respiratory failure related to acute exacerbation of COPD, and possibility of mild diastolic CHF. COVID-19 was negative. Chest x-ray showed pulmonary interstitial edema and diffuse nodular infiltrates possibly related to old granulomatous disease #2. Hyponatremia, improving. Possibly hypervolemic #3. Severe COPD, baseline FEV1 of 19% of predicted, stage IV COPD, on home oxygen at 3 L and AVAPS at bedtime and as needed #4. Alpha I antitrypsin deficiency #5. History of smoking, 36 pack years, in remission for 1 year #6. Former marijuana use #7. Hypertension #8. Paroxysmal atrial fibrillation, currently in A. fib with RVR, on Cardizem infusion, on Eliquis for anticoagulation #9. History of pseudomonas aeruginosa in sputum cultures Plan: Chest x-ray has been reviewed There is pulmonary interstitial edema We will cut back IV fluids and give the patient 1 dose of IV Lasix We'll continue IV steroids and breathing treatments DuoNeb, Pulmicort and Perforomist Continue cefepime Send sputum culture Asked the patient to bring his AVAPS from home if able Continue to follow I performed a history & physical examination of the patient and discussed their management with my nurse practitioner, Elida Cardoso. I reviewed the nurse practitioner's note and agree with the documented findings and plan of care. Lung sounds are positive for diminished breath sounds throughout the lung miles. The findings and the impression was discussed with the patient. I atte st to the documentation by the nurse practitioner. Time with Patient: Greater than 30
[2021-03-27] MEDS: methylPREDNISolone SOD SUCCI 125 MG/2 ML VIAL IV SCH ×2 (12:03→18:27)
--- NOTE | 2021-03-27 13:36 | CONS ---
CONSULTATION Mr. Daigle is a 55-year-old male with a history of paroxysmal atrial fibrillation, history of alpha-1 antitrypsin deficiency, history of chronic obstructive lung disease, prior history of smoking, on home oxygen, who presented with symptoms of progressive dyspnea. He presented with symptoms of exertional exacerbation of his COPD, as well as atrial fibrillation and rapid ventricular response. He is back in sinus mechanism at this time. He was coughing, unable to clear his sputum. He has been followed on a regular basis by Dr. Gaytan. He denies any dizziness or syncope. He has the palpitation. He was in the hospital recently and at that time had paroxysmal atrial fibrillation. He had an echocardiogram performed in October of this year that showed a preserved left ventricular size and systolic function with mild pulmonary hypertension. He has no history of documented obstructive coronary artery disease. MEDICATION: At the time of admission included Remeron, ( ), DuoNeb, Ventolin, Zoloft, Trelegy, Cardizem CD 180 mg daily, and Eliquis 5 mg twice a day. REVIEW OF SYSTEMS: RESPIRATORY SYSTEM: He has dyspnea on exertion, history of chronic obstructive lung disease and alpha-1 antitrypsin deficiency. GI SYSTEM: No recent GI bleeding, no peptic ulcer disease. SYSTEM: No dysuria or hematuria. NERVOUS SYSTEM: No stroke or seizure. PHYSICAL EXAMINATION: A 55-year-old male, alert, oriented, in no apparent distress. Blood pressure 108/50 with a heart rate in the 100s. HEAD: Normocephalic. EYES: Sclerae anicteric. NECK: Good upstroke, no bruit. LUNGS: With decreased breath sounds on both bases. Patient on BiPAP. HEART: Regular rate and rhythm. S1, S2. No S3. No S4. No rub. ABDOMEN: Soft, nontender. Positive bowel sounds, no organomegaly. EXTREMITIES: No edema. EKG on admission revealed atrial fibrillation with a right axis deviation, nonspecific ST-T wave changes. She is in sinus mechanism at this time. The chest x-ray revealed increased interstitial infiltrate. LAB DATA: Lab data revealed a BUN and creatinine 14 and 0.37, potassium 5.1. Sodium 128, a troponin less than 0.012. NT proBNP of 191. Hemoglobin of 13.1. IMPRESSION: 1. Exacerbation of chronic obstructive pulmonary disease. 2. Paroxysmal atrial fibrillation, back in sinus mechanism. 3. History of alpha-1 antitrypsin deficiency. RECOMMENDATION: At this time, I will increase the dose of his Cardizem orally to 240. Continue rest of his medical regimen. I will stop his IV Cardizem, continue anticoagulation. If he continues to have episode of paroxysmal atrial fibrillation, then 1 of the option is to add an antiarrhythmic or consider ablation. Thank you for this consult. I will follow with you. [place] / KOJON: [id number] /
[2021-03-27] MEDS: FORMOTEROL FUMARATE 20 MCG/2 ML NEBU INHALATION SCH ×2 (18:49→19:10)
[2021-03-27] MEDS: BUDESONIDE 1 MG/2 ML NEBU INHALATION SCH (18:50)
[2021-03-27 19:39] LABS: Glucose,Whole Blood 292 mg/dL (75-99)
[2021-03-27] MEDS: MELATONIN 5 MG TABLET PO SCH (20:16)
[2021-03-27] MEDS: MIRTAZAPINE 15 MG TAB PO SCH (20:16)
[2021-03-27] MEDS: INSULIN ASPART (NovoLOG) 100 UNIT/ML VIAL SQ SCH (20:17)
[2021-03-27] MEDS: ALPRAZolam 0.5 MG TAB PO PRN (21:44)
[2021-03-28] MEDS: methylPREDNISolone SOD SUCCI 125 MG/2 ML VIAL IV SCH ×4 (00:17→17:22)
[2021-03-28 05:57] LABS: Glucose,Whole Blood 188 mg/dL (75-99)
[2021-03-28] MEDS: INSULIN ASPART (NovoLOG) 100 UNIT/ML VIAL SQ SCH ×4 (06:35→20:12)
[2021-03-28] MEDS: LORATADINE 10 MG TAB PO SCH (07:55)
[2021-03-28] MEDS: CEFEPIME 2 GM in SODIUM CHLORIDE 0.9% 100 ML IVPB SCH ×2 (07:55→16:15)
[2021-03-28] MEDS: CHOLECALCIFEROL 25 MCG (1000 IU) TABLET PO SCH (07:55)
[2021-03-28] MEDS: FAMOTIDINE 20 MG TAB PO SCH (07:55)
[2021-03-28] MEDS: MULTIVITAMINS, THERA 1 EACH TAB PO SCH ×2 (07:55→07:56)
[2021-03-28] MEDS: DILTIAZEM CD 240 MG CAP.ER.24H PO SCH (07:56)
[2021-03-28] MEDS: APIXABAN 5 MG TAB PO SCH ×2 (07:56→20:12)
[2021-03-28] MEDS: BUDESONIDE 1 MG/2 ML NEBU INHALATION SCH ×2 (08:38→19:50)
[2021-03-28] MEDS: IPRATROPIUM-ALBUTEROL 3 ML NEB INHALATION SCH ×4 (08:38→19:50)
[2021-03-28] MEDS: FORMOTEROL FUMARATE 20 MCG/2 ML NEBU INHALATION SCH (08:56)
[2021-03-28] MEDS: SERTRALINE 50 MG TAB PO SCH (09:00)
--- NOTE | 2021-03-28 10:28 | P.PN ---
Subjective Progress Note Date: 03/27/21 This is a 55-year-old white male patient who is well-known to our practice for his history of severe COPD/emphysema, alpha-1 antitrypsin deficiency, with a baseline FEV1 of 19% of predicted. he follows with Dr. Gaytan in the pulmonary clinic. Patient is on APAP's machine at home. He is on a combination of Trelegy Ellipta, nebulized DuoNeb, and patient has a rescue inhaler. He was considered for lung reduction surgery at one point, he underwent evaluation by Dr. Gaytan and the [facility], however in view of his significant CO2 retention he was deemed to be a poor candidate. he is an ex-smoker, he quit smoking a year ago, prior to that he smoked for 36 years 1 pack a day, in addition to that he had smoked marijuana. His other medical history includes h ypertension, paroxysmal A. fib and patient is on Eliquis for anticoagulation on an outpatient basis. Patient had pseudomonal pulmonary infections in the recent past. On 03/26/2021 patient came into the emergency department per EMS for elevation of weakness, cough and shortness of breath. Denied any fever or chills, denied any hemoptysis. Patient lives at home with his who is also a nurse. He normally wears 4 L of oxygen on a regular basis. His reports mild lower extremity pitting edema. He reports coughing up some green colored sputum. Chest x-ray showed increasing pulmonary interstitial pneumonia. His CBC was unremarkable, no evidence of leukocytosis, hemoglobin was stable, coagulation panel was unremarkable, metabolic panel showed a sodium of 126. Potassium is 4.7, chloride was 78, CO2 was 40, BUN was 11, creatinine 0.3, plasma lactic acid is less than 0.5, troponin was less than 0.012, proBNP was 191. COVID-19 PCR was negative. he is in atrial fibrillation, and had an episode of a rapid ventricular response with a heart rate up to 170. He was started on Cardizem infusion currently at 5 mg per hour, his 0.9 and is infusing at a rate of 75 ML per hour, he did wear BiPAP support last night with pressure of 12/5, and FiO2 of 40%, he is currently on nasal cannula, he is short of breath with any exertion, and conversation, but appears to be in no acute distr ess. He was started on cefepime, he was started on nebulized treatments and IV steroids. His heart rate is currently better controlled. His heart rate is 92 BPM His evaluation 03/28/2021, the patient is on a BiPAP pressure of 12/5 cm of water. He seems to be quite comfortable. He was off the BiPAP earlier and he was oxygen at 4 L off the BiPAP. He did have a reaction to hours Perforomist a nd the medication was discontinued. I'm inclined asking this patient to bring in his Trelegy Ellipta from home to use also during the hospital stay. He remains on Solu-Medrol. He remains on IV cefepime. No chest pain. No altered mentation. Sputum Gram stain and culture is negative. Blood sugars are slightly elevated. Follow-up sodium level is pending for now. Objective - Vital Signs Vital signs: Vital Signs Temp 99.3 F 03/27/21 19:48 Pulse 90 03/27/21 19:48 Resp 17 03/27/21 19:48 BP 132/83 03/27/21 19:48 Pulse Ox 94 L 03/27/21 19:48 Intake & Output 03/27/21 03/27/21 03/28/21 06:59 18:59 06:59 Intake Total 240 720 Output Total 1650 1300 175 Balance -1410 580 -175 Weight 63 kg Intake: Oral 240 720 Output: Urine 1650 1300 175 Other: Voiding Method Urinal Urinal # Voids 1 - Exam GENERAL EXAM: Alert, very pleasant, 55-year-old white male, 4 L of oxygen with pulse ox of 95%, was recently on BiPAP support with pressures of 12/5 and FiO2 of 40%, and has since improved and was able to switch over to nasal cannula and tolerating it well so far comfortable in no apparent distress. HEAD: Normocephalic/atraumatic. EYES: Normal reaction of pupils, equal size. Conjunctiva pink, sclera white. NOSE: Clear with pink turbinates. THROAT: No erythema or exudates. NECK: No masses, no JVD, no thyroid enlargement, no adenopathy. CHEST: No chest wall deformity. Symmetrical expansion. LUNGS: Equal air entry with diffuse coarse crackles, anteriorly and posteriorly, overall diminished breath sounds bilaterally CVS: Regular rate and rhythm, normal S1 and S2, no gallops, no murmurs, no rubs ABDOMEN: Soft, nontender. No hepatosplenomegaly, normal bowel sounds, no guarding or rigidity. EXTREMITIES: No clubbing, no edema, no cyanosis, 2+ pulses and upper and lower extremities. MUSCULOSKELETAL: Muscle strength and tone normal. SPINE: No scoliosis or deformity SKIN: No rashes CENTRAL NERVOUS SYSTEM: Alert and oriented -3. No focal deficits, tone is normal in all 4 extremities. PSYCHIATRIC: Alert and oriented -3. Appropriate affect. Intact judgment and insight. - Labs CBC & Chem 7: 03/27/21 06:48 03/27/21 06:48 Labs: Abnormal Lab Results - Last 24 Hours (Table) 03/27/21 03/27/21 Range/Units 06:48 19:37 Sodium 128 L (137-145) mmol/L Chloride 83 L (98-107) mmol/L Carbon Dioxide 38 H (22-30) mmol/L Creatinine 0.37 L (0.66-1.25) mg/dL Glucose 151 H (74-99) mg/dL POC Glucose (mg/dL) 292 H (75-99) mg/dL Microbiology - Last 24 Hours (Table) 03/27/21 12:07 Sputum Culture - Preliminary Sputum Assessment and Plan Plan: #1. Acute on chronic hypoxic and hypercapnic respiratory failure related to acute exacerbation of COPD, and possibility of mild diastolic CHF. COVID-19 was negative. Chest x-ray showed pulmonary interstitial edema and diffuse nodular infiltrates possibly related to old granulomatous disease #2. Hyponatremia, improving. Possibly hypervolemic #3. Severe COPD, baseline FEV1 of 19% of predicted, stage IV COPD, on home oxygen at 3 L and AVAPS at bedtime and as needed #4. Alpha I antitrypsin deficiency #5. History of smoking, 36 pack years, in remission for 1 year #6. Former marijuana use #7. Hypertension #8. Paroxysmal atrial fibrillation, currently in A. fib with RVR, on Cardizem infusion, on Eliquis for anticoagulation #9. History of pseudomonas aeruginosa in sputum cultures Plan: The patient will use the BiPAP on and off with his oxygen at 4 L it continue bronchodilators. Continue steroids. Discontinue Perforomist as the patient had an ALLERGIC reaction. Repeat sodium level. Clinically improving. Continue IV Solu Medrol for another 24 hours and will continue to follow.The procalcitonin level was low. Full code status. His last cigarette was > 1 year ago
--- NOTE | 2021-03-28 10:29 | P.PN ---
Subjective Progress Note Date: 03/28/21 This is a 55-year-old white male patient who is well-known to our practice for his history of severe COPD/emphysema, alpha-1 antitrypsin deficiency, with a baseline FEV1 of 19% of predicted. he follows with Dr. Gaytan in the pulmonary clinic. Patient is on APAP's machine at home. He is on a combination of Trelegy Ellipta, nebulized DuoNeb, and patient has a rescue inhaler. He was considered for lung reduction surgery at one point, he underwent evaluation by Dr. Gaytan and the [facility], however in view of his significant CO2 retention he was deemed to be a poor candidate. he is an ex-smoker, he quit smoking a year ago, prior to that he smoked for 36 years 1 pack a day, in addition to that he had smoked marijuana. His other medical history includes h ypertension, paroxysmal A. fib and patient is on Eliquis for anticoagulation on an outpatient basis. Patient had pseudomonal pulmonary infections in the recent past. On 03/26/2021 patient came into the emergency department per EMS for elevation of weakness, cough and shortness of breath. Denied any fever or chills, denied any hemoptysis. Patient lives at home with his who is also a nurse. He normally wears 4 L of oxygen on a regular basis. His reports mild lower extremity pitting edema. He reports coughing up some green colored sputum. Chest x-ray showed increasing pulmonary interstitial pneumonia. His CBC was unremarkable, no evidence of leukocytosis, hemoglobin was stable, coagulation panel was unremarkable, metabolic panel showed a sodium of 126. Potassium is 4.7, chloride was 78, CO2 was 40, BUN was 11, creatinine 0.3, plasma lactic acid is less than 0.5, troponin was less than 0.012, proBNP was 191. COVID-19 PCR was negative. he is in atrial fibrillation, and had an episode of a rapid ventricular response with a heart rate up to 170. He was started on Cardizem infusion currently at 5 mg per hour, his 0.9 and is infusing at a rate of 75 ML per hour, he did wear BiPAP support last night with pressure of 12/5, and FiO2 of 40%, he is currently on nasal cannula, he is short of breath with any exertion, and conversation, but appears to be in no acute distr ess. He was started on cefepime, he was started on nebulized treatments and IV steroids. His heart rate is currently better controlled. His heart rate is 92 BPM His evaluation 03/28/2021, the patient is on a BiPAP pressure of 12/5 cm of water. He seems to be quite comfortable. He was off the BiPAP earlier and he was oxygen at 4 L off the BiPAP. He did have a reaction to hours Perforomist a nd the medication was discontinued. I'm inclined asking this patient to bring in his Trelegy Ellipta from home to use also during the hospital stay. He remains on Solu-Medrol. He remains on IV cefepime. No chest pain. No altered mentation. Sputum Gram stain and culture is negative. Blood sugars are slightly elevated. Follow-up sodium level is pending for now. Objective - Vital Signs Vital signs: Vital Signs Temp 97.7 F 03/28/21 08:00 Pulse 86 03/28/21 08:56 Resp 14 03/28/21 08:00 BP 115/71 03/28/21 08:00 Pulse Ox 93 L 03/28/21 04:00 Intake & Output 03/27/21 03/28/21 03/28/21 18:59 06:59 18:59 Intake Total 720 280 Output Total 1300 1025 Balance -580 -1025 280 Weight 64.3 kg Intake: Oral 720 280 Output: Urine 1300 1025 Other: Voiding Method Urinal Urinal # Voids 1 - Exam GENERAL EXAM: Alert, very pleasant, 55-year-old white male, 4 L of oxygen with pulse ox of 95%, was recently on BiPAP support with pressures of 12/5 and FiO2 of 40%, and has since improved and was able to switch over to nasal cannula and tolerating it well so far comfortable in no apparent distress. HEAD: Normocephalic/atraumatic. EYES: Normal reaction of pupils, equal size. Conjunctiva pink, sclera white. NOSE: Clear with pink turbinates. THROAT: No erythema or exudates. NECK: No masses, no JVD, no thyroid enlargement, no adenopathy. CHEST: No chest wall deformity. Symmetrical expansion. LUNGS: Equal air entry with diffuse coarse crackles, anteriorly and posteriorly, overall diminished breath sounds bilaterally CVS: Regular rate and rhythm, normal S1 and S2, no gallops, no murmurs, no rubs ABDOMEN: Soft, nontender. No hepatosplenomegaly, normal bowel sounds, no guarding or rigidity. EXTREMITIES: No clubbing, no edema, no cyanosis, 2+ pulses and upper and lower extremities. MUSCULOSKELETAL: Muscle strength and tone normal. SPINE: No scoliosis or deformity SKIN: No rashes CENTRAL NERVOUS SYSTEM: Alert and oriented -3. No focal deficits, tone is normal in all 4 extremities. PSYCHIATRIC: Alert and oriented -3. Appropriate affect. Intact judgment and insight. - Labs CBC & Chem 7: 03/27/21 06:48 03/27/21 06:48 Labs: Abnormal Lab Results - Last 24 Hours (Table) 03/27/21 03/28/21 Range/Units 19:37 05:56 POC Glucose (mg/dL) 292 H 188 H (75-99) mg/dL Microbiology - Last 24 Hours (Table) 03/27/21 12:07 Gram Stain - Preliminary Sputum Sputum Culture - Preliminary Assessment and Plan Plan: #1. Acute on chronic hypoxic and hypercapnic respiratory failure related to acute exacerbation of COPD, and possibility of mild diastolic CHF. COVID-19 was negative. Chest x-ray showed pulmonary interstitial edema and diffuse nodular infiltrates possibly related to old granulomatous disease #2. Hyponatremia, improving. Possibly hypervolemic #3. Severe COPD, baseline FEV1 of 19% of predicted, stage IV COPD, on home oxygen at 3 L and AVAPS at bedtime and as needed #4. Alpha I antitrypsin deficiency #5. History of smoking, 36 pack years, in remission for 1 year #6. Former marijuana use #7. Hypertension #8. Paroxysmal atrial fibrillation, currently in A. fib with RVR, on Cardizem infusion, on Eliquis for anticoagulation #9. History of pseudomonas aeruginosa in sputum cultures Plan: The patient will use the BiPAP on and off with his oxygen at 4 L it continue bronchodilators. Continue steroids. Discontinue Perforomist as the patient had an ALLERGIC reaction. Repeat sodium level. Clinically improving. Continue IV Solu Medrol for another 24 hours and will continue to follow.The procalcitonin level was low. Full code status. His last cigarette was > 1 year ago
[2021-03-28 11:40] LABS: Glucose,Whole Blood 241 mg/dL (75-99)
[2021-03-28 11:49] LABS: African American GFR (CKD) >90 (>60 ml/min/1.73 sqM); Blood Urea Nitrogen 19 mg/dL (9-20); Calcium 9.3 mg/dL (8.4-10.2); Chloride 82 mmol/L (98-107); Glucose 263 mg/dL (74-99); Non-African American GFR(CKD) >90 (>60 ml/min/1.73 sqM); Potassium 4.8 mmol/L (3.5-5.1); Sodium 130 mmol/L (137-145)
[2021-03-28 11:57] LABS: Anion Gap 7 mmol/L
[2021-03-28 11:59] LABS: Carbon Dioxide 41 mmol/L (22-30)
--- NOTE | 2021-03-28 12:12 | P.PN ---
Subjective This is a pleasant 55-year-old male past medical history significant for paroxysmal atrial fibrillation, alpha-1 antitrypsin deficiency and COPD on home oxygen. He does not follow regularly in the office with a dry chain puller. He is seen and examined sitting up in no acute distress. He continues to feel short of breath mostly with exertion. He denies symptoms of chest discomfort, palpitations or dizziness. Blood pressure 115/76 heart rate 85 afebrile maintaining oxygen saturation on nasal cannula. Laboratory data reviewed, sodiu m 1:30, potassium 4.8, creatinine 0.35. Currently maintained on Eliquis 5 mg twice a day and diltiazem 240 mg daily. GENERAL: Well-appearing, well-nourished and in no acute distress. NECK: Supple without JVD or thyromegaly. LUNGS: Breath sounds clear to auscultation bilaterally. Respiration equal and unlabored. No wheezes, rales or rhonchi. HEART: Regular rate and rhythm without murmurs, rubs or gallops. S1 and S2 heard. EXTREMITIES: Normal range of motion, no edema. No clubbing or cyanosis. Peripheral pulses intact. ASSESSMENT Acute exacerbation of COPD Paroxysmal atrial fibrillation on Eliquis Typical atrial flutter, controlled rates Alpha-1 antitrypsin PLAN Continue current medical regimen. Rate are controlled. Ongoing medical management and treatment per pulmonary care team. We will follow along as needed, please call with further questions or concerns. Nurse Practitioner note has been reviewed, I agree with a documented findings and plan of care. Patient was seen and examined. Objective - Vital Signs Vital signs: Vital Signs Temp 98.2 F 03/28/21 11:53 Pulse 85 03/28/21 11:53 Resp 16 03/28/21 11:53 BP 115/76 03/28/21 11:53 Pulse Ox 93 L 03/28/21 04:00 Intake & Output 03/27/21 03/28/21 03/28/21 18:59 06:59 18:59 Intake Total 720 520 Output Total 1300 1025 Balance -580 -1025 520 Weight 64.3 kg Intake: Oral 720 520 Output: Urine 1300 1025 Other: Voiding Method Urinal Urinal # Voids 1 - Labs CBC & Chem 7: 03/27/21 06:48 03/28/21 10:48 Labs: Abnormal Lab Results - Last 24 Hours (Table) 03/27/21 03/28/21 03/28/21 Range/Units 19:37 05:56 10:48 Sodium 130 L (137-145) mmol/L Chloride 82 L (98-107) mmol/L Carbon Dioxide 41 H* (22-30) mmol/L Creatinine 0.35 L (0.66-1.25) mg/dL Glucose 263 H (74-99) mg/dL POC Glucose (mg/dL) 292 H 188 H (75-99) mg/dL 03/28/21 Range/Units 11:31 Sodium (137-145) mmol/L Chloride (98-107) mmol/L Carbon Dioxide (22-30) mmol/L Creatinine (0.66-1.25) mg/dL Glucose (74-99) mg/dL POC Glucose (mg/dL) 241 H (75-99) mg/dL Microbiology - Last 24 Hours (Table) 03/27/21 12:07 Gram Stain - Preliminary Sputum Sputum Culture - Preliminary
[2021-03-28 16:37] LABS: Glucose,Whole Blood 211 mg/dL (75-99)
[2021-03-28 19:53] LABS: Glucose,Whole Blood 232 mg/dL (75-99)
[2021-03-28] MEDS: MELATONIN 5 MG TABLET PO SCH (20:12)
[2021-03-28] MEDS: MIRTAZAPINE 15 MG TAB PO SCH (20:12)
[2021-03-28] MEDS: ALPRAZolam 0.5 MG TAB PO PRN (22:41)
[2021-03-29] MEDS: methylPREDNISolone SOD SUCCI 125 MG/2 ML VIAL IV SCH ×5 (00:42→22:42)
[2021-03-29] MEDS: CEFEPIME 2 GM in SODIUM CHLORIDE 0.9% 100 ML IVPB SCH ×4 (00:42→22:42)
[2021-03-29 06:14] LABS: Glucose,Whole Blood 182 mg/dL (75-99)
[2021-03-29] MEDS: INSULIN ASPART (NovoLOG) 100 UNIT/ML VIAL SQ SCH ×4 (06:16→21:02)
[2021-03-29] MEDS: IPRATROPIUM-ALBUTEROL 3 ML NEB INHALATION SCH ×4 (07:58→19:17)
[2021-03-29] MEDS: BUDESONIDE 1 MG/2 ML NEBU INHALATION SCH ×2 (08:00→19:17)
[2021-03-29] MEDS: CHOLECALCIFEROL 25 MCG (1000 IU) TABLET PO SCH (08:58)
[2021-03-29] MEDS: APIXABAN 5 MG TAB PO SCH ×2 (08:58→20:05)
[2021-03-29] MEDS: DILTIAZEM CD 240 MG CAP.ER.24H PO SCH (08:58)
[2021-03-29] MEDS: LORATADINE 10 MG TAB PO SCH (08:58)
[2021-03-29] MEDS: FAMOTIDINE 20 MG TAB PO SCH (08:58)
[2021-03-29] MEDS: SERTRALINE 50 MG TAB PO SCH (08:58)
[2021-03-29 09:41] LABS: African American GFR (CKD) >90 (>60 ml/min/1.73 sqM); Basophils % (A) 0 %; Blood Urea Nitrogen 20 mg/dL (9-20); Calcium 9.3 mg/dL (8.4-10.2); Chloride 84 mmol/L (98-107); Eosinophils % (A) 0 %; Glucose 244 mg/dL (74-99); HCT 40.4 % (39.0-53.0); Hypochromasia Slight; Lymphocytes # (A) 0.5 k/uL (1.0-4.8); Lymphocytes % (A) 8 %; MCH 28.7 pg (25.0-35.0); MCHC 29.8 g/dL (31.0-37.0); MCV 96.3 fL (80.0-100.0); Mean Platelet Volume 7.2; Monocytes # (A) 0.4 k/uL (0-1.0); Monocytes % (A) 7 %; Neutrophils # (A) 5.1 k/uL (1.3-7.7); Neutrophils % (A) 85 %; Non-African American GFR(CKD) >90 (>60 ml/min/1.73 sqM); Platelet Count 350 k/uL (150-450); Potassium 5.6 mmol/L (3.5-5.1); RBC 4.19 m/uL (4.30-5.90); RDW 13.9 % (11.5-15.5); Sodium 129 mmol/L (137-145)
[2021-03-29 09:49] LABS: Anion Gap 4 mmol/L
[2021-03-29 09:55] LABS: Carbon Dioxide 41 mmol/L (22-30)
--- NOTE | 2021-03-29 10:06 | P.PN ---
Subjective Progress Note Date: 03/29/21 This is a 55-year-old white male patient who is well-known to our practice for his history of severe COPD/emphysema, alpha-1 antitrypsin deficiency, with a baseline FEV1 of 19% of predicted. he follows with Dr. Gaytan in the pulmonary clinic. Patient is on APAP's machine at home. He is on a combination of Trelegy Ellipta, nebulized DuoNeb, and patient has a rescue inhaler. He was considered for lung reduction surgery at one point, he underwent evaluation by Dr. Gaytan and the [facility], however in view of his significant CO2 retention he was deemed to be a poor candidate. he is an ex-smoker, he quit smoking a year ago, prior to that he smoked for 36 years 1 pack a day, in addition to that he had smoked marijuana. His other medical history includes h ypertension, paroxysmal A. fib and patient is on Eliquis for anticoagulation on an outpatient basis. Patient had pseudomonal pulmonary infections in the recent past. On 03/26/2021 patient came into the emergency department per EMS for elevation of weakness, cough and shortness of breath. Denied any fever or chills, denied any hemoptysis. Patient lives at home with his who is also a nurse. He normally wears 4 L of oxygen on a regular basis. His reports mild lower extremity pitting edema. He reports coughing up some green colored sputum. Chest x-ray showed increasing pulmonary interstitial pneumonia. His CBC was unremarkable, no evidence of leukocytosis, hemoglobin was stable, coagulation panel was unremarkable, metabolic panel showed a sodium of 126. Potassium is 4.7, chloride was 78, CO2 was 40, BUN was 11, creatinine 0.3, plasma lactic acid is less than 0.5, troponin was less than 0.012, proBNP was 191. COVID-19 PCR was negative. he is in atrial fibrillation, and had an episode of a rapid ventricular response with a heart rate up to 170. He was started on Cardizem infusion currently at 5 mg per hour, his 0.9 and is infusing at a rate of 75 ML per hour, he did wear BiPAP support last night with pressure of 12/5, and FiO2 of 40%, he is currently on nasal cannula, he is short of breath with any exertion, and conversation, but appears to be in no acute distr ess. He was started on cefepime, he was started on nebulized treatments and IV steroids. His heart rate is currently better controlled. His heart rate is 92 BPM His evaluation 03/28/2021, the patient is on a BiPAP pressure of 12/5 cm of water. He seems to be quite comfortable. He was off the BiPAP earlier and he was oxygen at 4 L off the BiPAP. He did have a reaction to hours Perforomist a nd the medication was discontinued. I'm inclined asking this patient to bring in his Trelegy Ellipta from home to use also during the hospital stay. He remains on Solu-Medrol. He remains on IV cefepime. No chest pain. No altered mentation. Sputum Gram stain and culture is negative. Blood sugars are slightly elevated. Follow-up sodium level is pending for now. 03/29 2021, the patient is being seen for a follow-up. Clinically the patient is improving. He is still using the BiPAP on and off during the day. He was using it intermittently during the day and the patient came off the BiPAP this morning at around 4:30 AM. After having breakfast he went back on the BiPAP. He is quite short of breath even at rest. He has end-stage COPD and lung disease. He has had multiple has position. Exacerbation. He definitely exacerbates after he comes off the prednisone burst taper. I'm considering a maintenance prednisone on this patient. He is known to have alpha-1 antitrypsin deficiency. He is demented on Trelegy Ellipta on outpatient basis in addition to DuoNeb nebulized units [id number]. He also has home oxygen. He has a Trilogy ventilator at home. Here in the hospital, the patient remains on a BiPAP at a pressure of 12/5 with an FiO2 of 40%. Objective - Vital Signs Vital signs: Vital Signs Temp 97.6 F 03/29/21 04:00 Pulse 85 03/29/21 08:12 Resp 18 03/29/21 04:00 BP 109/69 03/29/21 04:00 Pulse Ox 92 L 03/29/21 04:00 Intake & Output 03/28/21 03/29/21 03/29/21 18:59 06:59 18:59 Intake Total 1040 Output Total 1380 Balance 1040 -1380 Weight 64.5 kg Intake: Oral 1040 Output: Urine 1380 Other: Voiding Method Urinal Urinal # Voids 1 - Exam GENERAL EXAM: Alert, very pleasant, 55-year-old white male, 4 L of oxygen with pulse ox of 95%, was recently on BiPAP support with pressures of 12/5 and FiO2 of 40%, and has since improved and was able to switch over to nasal cannula and tolerating it well so far comfortable in no apparent distress. HEAD: Normocephalic/atraumatic. EYES: Normal reaction of pupils, equal size. Conjunctiva pink, sclera white. NOSE: Clear with pink turbinates. THROAT: No erythema or exudates. NECK: No masses, no JVD, no thyroid enlargement, no adenopathy. CHEST: No chest wall deformity. Symmetrical expansion. LUNGS: Equal air entry with diffuse coarse crackles, anteriorly and posteriorly, overall diminished breath sounds bilaterally CVS: Regular rate and rhythm, normal S1 and S2, no gallops, no murmurs, no rubs ABDOMEN: Soft, nontender. No hepatosplenomegaly, normal bowel sounds, no guarding or rigidity. EXTREMITIES: No clubbing, no edema, no cyanosis, 2+ pulses and upper and lower extremities. MUSCULOSKELETAL: Muscle strength and tone normal. SPINE: No scoliosis or deformity SKIN: No rashes CENTRAL NERVOUS SYSTEM: Alert and oriented -3. No focal deficits, tone is normal in all 4 extremities. PSYCHIATRIC: Alert and oriented -3. Appropriate affect. Intact judgment and insight. - Labs CBC & Chem 7: 03/29/21 09:08 03/29/21 09:08 Labs: Abnormal Lab Results - Last 24 Hours (Table) 03/28/21 03/28/21 03/28/21 Range/Units 10:48 11:31 16:36 RBC (4.30-5.90) m/uL Hgb (13.0-17.5) gm/dL MCHC (31.0-37.0) g/dL Lymphocytes # (1.0-4.8) k/uL Sodium 130 L (137-145) mmol/L Potassium (3.5-5.1) mmol/L Chloride 82 L (98-107) mmol/L Carbon Dioxide 41 H* (22-30) mmol/L Creatinine 0.35 L (0.66-1.25) mg/dL Glucose 263 H (74-99) mg/dL POC Glucose (mg/dL) 241 H 211 H (75-99) mg/dL 03/28/21 03/29/21 03/29/21 Range/Units 19:52 06:12 09:08 RBC (4.30-5.90) m/uL Hgb (13.0-17.5) gm/dL MCHC (31.0-37.0) g/dL Lymphocytes # (1.0-4.8) k/uL Sodium 129 L (137-145) mmol/L Potassium 5.6 H (3.5-5.1) mmol/L Chloride 84 L (98-107) mmol/L Carbon Dioxide 41 H* (22-30) mmol/L Creatinine 0.41 L (0.66-1.25) mg/dL Glucose 244 H (74-99) mg/dL POC Glucose (mg/dL) 232 H 182 H (75-99) mg/dL 03/29/21 Range/Units 09:08 RBC 4.19 L (4.30-5.90) m/uL Hgb 12.0 L (13.0-17.5) gm/dL MCHC 29.8 L (31.0-37.0) g/dL Lymphocytes # 0.5 L (1.0-4.8) k/uL Sodium (137-145) mmol/L Potassium (3.5-5.1) mmol/L Chloride (98-107) mmol/L Carbon Dioxide (22-30) mmol/L Creatinine (0.66-1.25) mg/dL Glucose (74-99) mg/dL POC Glucose (mg/dL) (75-99) mg/dL Microbiology - Last 24 Hours (Table) 03/27/21 12:07 Gram Stain - Final Sputum Sputum Culture - Final Assessment and Plan Plan: #1. Acute on chronic hypoxic and hypercapnic respiratory failure related to acute exacerbation of COPD, and possibility of mild diastolic CHF. COVID-19 was negative. Chest x-ray showed pulmonary interstitial edema and diffuse nodular infiltrates possibly related to old granulomatous disease #2. Hyponatremia, improving. Possibly hypervolemic #3. Severe COPD, baseline FEV1 of 19% of predicted, stage IV COPD, on home oxygen at 3 L and AVAPS at bedtime and as needed #4. Alpha I antitrypsin deficiency #5. History of smoking, 36 pack years, in remission for 1 year #6. Former marijuana use #7. Hypertension #8. Paroxysmal atrial fibrillation, currently in A. fib with RVR, on Cardizem infusion, on Eliquis for anticoagulation #9. History of pseudomonas aeruginosa in sputum cultures Plan: The patient will use the BiPAP on and off with his oxygen at 4 L it continue bronchodilators. Continue steroids, and I would suggest keep him on IV Solu Medrol for another 24 hours and putting him on prednisone burst taper as of tomorrow with intention of maintaining a prednisone maintenance dose.. Discontinue Perforomist as the patient had an ALLERGIC reaction. Repeat sodium level. Clinically improving. .The procalcitonin level was low. Full code status. His last cigarette was > 1 year ago. long-term prognosis poor baseline above-mentioned comorbidities. We'll continue to follow. He does have a AVAPS machine at home. Long-term steroid use may improve some of his shortness of breath, but not sure if it causes any improvement and in hospitalizations
[2021-03-29 11:57] LABS: Glucose,Whole Blood 200 mg/dL (75-99)
[2021-03-29 16:40] LABS: Glucose,Whole Blood 242 mg/dL (75-99)
[2021-03-29] MEDS: MIRTAZAPINE 15 MG TAB PO SCH (20:04)
[2021-03-29] MEDS: MELATONIN 5 MG TABLET PO SCH (20:05)
[2021-03-29 20:32] LABS: Glucose,Whole Blood 193 mg/dL (75-99)
[2021-03-29] MEDS: ALPRAZolam 0.5 MG TAB PO PRN (22:43)
[2021-03-30 05:59] LABS: Glucose,Whole Blood 209 mg/dL (75-99)
[2021-03-30] MEDS: INSULIN ASPART (NovoLOG) 100 UNIT/ML VIAL SQ SCH ×4 (06:23→20:17)
[2021-03-30] MEDS: methylPREDNISolone SOD SUCCI 125 MG/2 ML VIAL IV SCH (06:23)
[2021-03-30] MEDS: IPRATROPIUM-ALBUTEROL 3 ML NEB INHALATION SCH ×4 (07:55→20:47)
[2021-03-30] MEDS: BUDESONIDE 1 MG/2 ML NEBU INHALATION SCH ×2 (07:55→20:47)
[2021-03-30] MEDS: CEFEPIME 2 GM in SODIUM CHLORIDE 0.9% 100 ML IVPB SCH ×3 (08:20→22:51)
[2021-03-30] MEDS: FAMOTIDINE 20 MG TAB PO SCH (08:21)
[2021-03-30] MEDS: MULTIVITAMINS, THERA 1 EACH TAB PO SCH (08:21)
[2021-03-30] MEDS: CHOLECALCIFEROL 25 MCG (1000 IU) TABLET PO SCH (08:21)
[2021-03-30] MEDS: DILTIAZEM CD 240 MG CAP.ER.24H PO SCH (08:21)
[2021-03-30] MEDS: APIXABAN 5 MG TAB PO SCH ×2 (08:21→20:17)
[2021-03-30] MEDS: SERTRALINE 50 MG TAB PO SCH (08:21)
[2021-03-30] MEDS: LORATADINE 10 MG TAB PO SCH (08:21)
[2021-03-30] MEDS: predniSONE 20 MG TAB PO SCH (11:00)
[2021-03-30 11:31] LABS: African American GFR (CKD) >90 (>60 ml/min/1.73 sqM); Blood Urea Nitrogen 16 mg/dL (9-20); Chloride 87 mmol/L (98-107); Glucose 227 mg/dL (74-99); Non-African American GFR(CKD) >90 (>60 ml/min/1.73 sqM); Potassium 4.5 mmol/L (3.5-5.1); Sodium 128 mmol/L (137-145)
[2021-03-30 11:38] LABS: Anion Gap 3 mmol/L; Carbon Dioxide 38 mmol/L (22-30)
--- NOTE | 2021-03-30 11:41 | XR ---
EXAMINATION TYPE: XR chest 1V portable DATE OF EXAM: 03/30/2021 COMPARISON: 03/26/2021 INDICATION: Short of breath TECHNIQUE: Single frontal view of the chest is obtained. FINDINGS: The heart size is normal. The pulmonary vasculature is normal. Diffuse increased lung markings are present greater on the right. Findings comparison IMPRESSION: 1. Mild diffuse increased lung markings greatest in the right lower lung field, findings are improved from comparison
[2021-03-30 12:20] LABS: Glucose,Whole Blood 199 mg/dL (75-99)
[2021-03-30 16:34] LABS: Glucose,Whole Blood 172 mg/dL (75-99)
[2021-03-30 19:50] LABS: Glucose,Whole Blood 221 mg/dL (75-99)
[2021-03-30] MEDS: MELATONIN 5 MG TABLET PO SCH (20:17)
[2021-03-30] MEDS: MIRTAZAPINE 15 MG TAB PO SCH (20:17)
[2021-03-30] MEDS: ALPRAZolam 0.5 MG TAB PO PRN (22:51)
[2021-03-31 06:10] LABS: Glucose,Whole Blood 152 mg/dL (75-99)
[2021-03-31] MEDS: INSULIN ASPART (NovoLOG) 100 UNIT/ML VIAL SQ SCH ×3 (06:27→17:40)
[2021-03-31] MEDS: BUDESONIDE 1 MG/2 ML NEBU INHALATION SCH (07:06)
[2021-03-31] MEDS: IPRATROPIUM-ALBUTEROL 3 ML NEB INHALATION SCH ×3 (07:06→16:01)
[2021-03-31 07:44] LABS: Basophils % (A) 0 %; Eosinophils % (A) 0 %; HGB 12.4 gm/dL (13.0-17.5); Lymphocytes # (A) 0.7 k/uL (1.0-4.8); Lymphocytes % (A) 8 %; MCH 30.3 pg (25.0-35.0); MCHC 31.7 g/dL (31.0-37.0); MCV 95.5 fL (80.0-100.0); Mean Platelet Volume 6.9; Monocytes # (A) 0.7 k/uL (0-1.0); Monocytes % (A) 8 %; Neutrophils # (A) 7.5 k/uL (1.3-7.7); Neutrophils % (A) 83 %; Platelet Count 318 k/uL (150-450); RBC 4.09 m/uL (4.30-5.90); RDW 13.9 % (11.5-15.5); WBC 9.1 k/uL (3.8-10.6)
[2021-03-31 08:17] LABS: African American GFR (CKD) >90 (>60 ml/min/1.73 sqM); Anion Gap 5 mmol/L; Blood Urea Nitrogen 17 mg/dL (9-20); Calcium 9.1 mg/dL (8.4-10.2); Chloride 85 mmol/L (98-107); Glucose 155 mg/dL (74-99); Non-African American GFR(CKD) >90 (>60 ml/min/1.73 sqM); Potassium 4.7 mmol/L (3.5-5.1); Sodium 130 mmol/L (137-145)
[2021-03-31] MEDS: predniSONE 20 MG TAB PO SCH (08:22)
[2021-03-31] MEDS: FAMOTIDINE 20 MG TAB PO SCH (08:22)
[2021-03-31] MEDS: SERTRALINE 50 MG TAB PO SCH (08:22)
[2021-03-31] MEDS: APIXABAN 5 MG TAB PO SCH (08:22)
[2021-03-31] MEDS: MULTIVITAMINS, THERA 1 EACH TAB PO SCH (08:22)
[2021-03-31] MEDS: CEFEPIME 2 GM in SODIUM CHLORIDE 0.9% 100 ML IVPB SCH ×2 (08:22→16:43)
[2021-03-31] MEDS: DILTIAZEM CD 240 MG CAP.ER.24H PO SCH (08:22)
[2021-03-31] MEDS: LORATADINE 10 MG TAB PO SCH (08:23)
[2021-03-31] MEDS: CHOLECALCIFEROL 25 MCG (1000 IU) TABLET PO SCH (08:23)
[2021-03-31 08:34] LABS: Carbon Dioxide 40 mmol/L (22-30)
[2021-03-31 09:35] VITALS: RESP 20
--- NOTE | 2021-03-31 09:55 | P.PN ---
Subjective Progress Note Date: 03/28/21 Principal diagnosis: Acute hypoxic respiratory failure Acute COPD exacerbation and mild diastolic CHF. Patient is a pleasant 55-year-old male with a history of alpha 1 antitrypsin deficiency COPD quit smoking in 2019, came in with complaints of severe shortness of breath and patient is presently on BiPAP patient usually uses 4 L of oxygen at home. Patient had a chest x-ray which didn't show any pneumonia patient had multiple hospitalizations for COPD exacerbation patient is presently in A. fib and requiring Cardizem at this time. Patient has been hyponatremic probably because of hyperkalemia and patient receiving IV fluids at this time. Patient will be started on systemic steroids. Patient was comparing of cough unable to get much of the history because of patient being on BiPAP. 03/28/2021 Patient is currently lying in the bed on BiPAP. No complaints of chest pain. Patient is awake alert and oriented. Continued on IV Solu-Medrol and antibiotics and off cefepime and DuoNeb's. Patient has been afebrile. No nausea vomiting or abdominal pain or diarrhea. Laboratory data showed sodium 1:30 potassium 4.8 chloride 82 bicarb is 41 BUN 19 and creatinine 0.35 and blood sugar is 263 Current medications reviewed. Objective - Vital Signs Vital signs: Vital Signs Temp 98.2 F 03/28/21 16:00 Pulse 85 03/28/21 16:00 Resp 16 03/28/21 16:00 BP 151/89 03/28/21 16:00 Pulse Ox 93 L 03/28/21 04:00 Intake & Output 03/27/21 03/28/21 03/28/21 18:59 06:59 18:59 Intake Total 720 760 Output Total 1300 1025 Balance -580 -1025 760 Weight 64.3 kg Intake: Oral 720 760 Output: Urine 1300 1025 Other: Voiding Method Urinal Urinal # Voids 1 - Exam PHYSICAL EXAMINATION: Patient is lying in the bed comfortably, no acute distress, awake alert and oriented.. HEENT: Normocephalic. Neck is supple. Pupils reactive. Nostrils clear. Oral cavity is moist. Neck reveals no JVD, carotid bruits, or thyromegaly. CHEST EXAMINATION: Trachea is central. Symmetrical expansion. Bilateral diminished air entry and scattered rhonchi.. CARDIAC: Normal S1, S2 with no gallops. No murmurs ABDOMEN: Soft. Bowel sounds normal. No organomegaly. No abdominal bruits. Extremities: reveal no edema. No clubbing or cyanosis Neurologically awake, alert, oriented x3 with well-coordinated movements. No focal deficits noted Skin: No rash or skin lesions. Psychiatric: Coperative. Nonsuicidal Musculoskeletal: No joint swelling or deformity. Normal range of motion. - Labs CBC & Chem 7: 03/31/21 06:37 03/31/21 06:37 Labs: Abnormal Lab Results - Last 24 Hours (Table) 03/27/21 03/28/21 03/28/21 Range/Units 19:37 05:56 10:48 Sodium 130 L (137-145) mmol/L Chloride 82 L (98-107) mmol/L Carbon Dioxide 41 H* (22-30) mmol/L Creatinine 0.35 L (0.66-1.25) mg/dL Glucose 263 H (74-99) mg/dL POC Glucose (mg/dL) 292 H 188 H (75-99) mg/dL 03/28/21 03/28/21 Range/Units 11:31 16:36 Sodium (137-145) mmol/L Chloride (98-107) mmol/L Carbon Dioxide (22-30) mmol/L Creatinine (0.66-1.25) mg/dL Glucose (74-99) mg/dL POC Glucose (mg/dL) 241 H 211 H (75-99) mg/dL Microbiology - Last 24 Hours (Table) 03/27/21 12:07 Gram Stain - Preliminary Sputum Sputum Culture - Preliminary Assessment and Plan Assessment: Acute on chronic hypoxic and hypercapnic respiratory failure secondary to COPD exacerbation. Chest x-ray showed interstitial edema and diffuse nodular infiltrates possibly related to old granulomatous disease. Possible acute mild CHF. Hypervolemic hyponatremia. Improving Severe COPD and off for 1 antitrypsin deficiency. Paroxysmal atrial fibrillation with rapid ventricular rate. Was on Cardizem drip and anticoagulation with Eliquis Hyperlipidemia Hypertension Previous history of smoking DVT prophylaxis patient is already on liquid is Plan: Patient is being continued on BiPAP 12 x 5. Continue with oxygen supplementation. Patient will be continued on IV Solu-Medrol and duo nebs Antibiotics in the form of cefepime due to prior history of Pseudomonas in the sputum. Follow-up sodium level. Pulmonary and cardiology is on board. Continue to follow closely. Prognosis is guarded. Time with Patient: Greater than 30
--- NOTE | 2021-03-31 09:57 | P.PN ---
Subjective Progress Note Date: 03/29/21 Principal diagnosis: Acute hypoxic respiratory failure Acute COPD exacerbation and mild diastolic CHF. Patient is a pleasant 55-year-old male with a history of alpha 1 antitrypsin deficiency COPD quit smoking in 2019, came in with complaints of severe shortness of breath and patient is presently on BiPAP patient usually uses 4 L of oxygen at home. Patient had a chest x-ray which didn't show any pneumonia patient had multiple hospitalizations for COPD exacerbation patient is presently in A. fib and requiring Cardizem at this time. Patient has been hyponatremic probably because of hyperkalemia and patient receiving IV fluids at this time. Patient will be started on systemic steroids. Patient was comparing of cough unable to get much of the history because of patient being on BiPAP. 03/28/2021 Patient is currently lying in the bed on BiPAP. No complaints of chest pain. Patient is awake alert and oriented. Continued on IV Solu-Medrol and antibiotics and off cefepime and DuoNeb's. Patient has been afebrile. No nausea vomiting or abdominal pain or diarrhea. Laboratory data showed sodium 1:30 potassium 4.8 chloride 82 bicarb is 41 BUN 19 and creatinine 0.35 and blood sugar is 263 03/29/2021 Patient is currently resting in the bed awake Oriented 3. Still on BiPAP on and off. Was able to tolerate oral diet off BiPAP Patient is being continued on IV steroids and DuoNeb's. Heart rate is controlled. Continue with Cardizem 240 mg by mouth daily. Remains on antibiotics in the form of cefepime. Patient has been afebrile. No nausea vomiting or abdominal pain or diarrhea. No complaints of chest pain. Current medications reviewed. Objective - Vital Signs Vital signs: Vital Signs Temp 98.0 F 03/29/21 16:00 Pulse 86 03/29/21 19:42 Resp 20 03/29/21 16:00 BP 117/70 03/29/21 16:00 Pulse Ox 97 03/29/21 16:00 Intake & Output 03/29/21 03/29/21 03/30/21 06:59 18:59 06:59 Intake Total 3705 Output Total 1380 875 940 Balance -1380 2830 -940 Weight 64.5 kg Intake: Oral 3705 Output: Urine 1380 875 940 Other: Voiding Method Urinal # Voids 1 2 - Exam PHYSICAL EXAMINATION: Patient is lying in the bed comfortably, no acute distress, awake alert and oriented.. HEENT: Normocephalic. Neck is supple. Pupils reactive. Nostrils clear. Oral cavity is moist. Neck reveals no JVD, carotid bruits, or thyromegaly. CHEST EXAMINATION: Trachea is central. Symmetrical expansion. Bilateral diminished air entry and scattered rhonchi.. CARDIAC: Normal S1, S2 with no gallops. No murmurs ABDOMEN: Soft. Bowel sounds normal. No organomegaly. No abdominal bruits. Extremities: reveal no edema. No clubbing or cyanosis Neurologically awake, alert, oriented x3 with well-coordinated movements. No focal deficits noted Skin: No rash or skin lesions. Psychiatric: Coperative. Nonsuicidal Musculoskeletal: No joint swelling or deformity. Normal range of motion. - Labs CBC & Chem 7: 03/31/21 06:37 03/31/21 06:37 Labs: Abnormal Lab Results - Last 24 Hours (Table) 03/29/21 03/29/21 03/29/21 Range/Units 06:12 09:08 09:08 RBC 4.19 L (4.30-5.90) m/uL Hgb 12.0 L (13.0-17.5) gm/dL MCHC 29.8 L (31.0-37.0) g/dL Lymphocytes # 0.5 L (1.0-4.8) k/uL Sodium 129 L (137-145) mmol/L Potassium 5.6 H (3.5-5.1) mmol/L Chloride 84 L (98-107) mmol/L Carbon Dioxide 41 H* (22-30) mmol/L Creatinine 0.41 L (0.66-1.25) mg/dL Glucose 244 H (74-99) mg/dL POC Glucose (mg/dL) 182 H (75-99) mg/dL 03/29/21 03/29/21 03/29/21 Range/Units 11:46 16:38 20:31 RBC (4.30-5.90) m/uL Hgb (13.0-17.5) gm/dL MCHC (31.0-37.0) g/dL Lymphocytes # (1.0-4.8) k/uL Sodium (137-145) mmol/L Potassium (3.5-5.1) mmol/L Chloride (98-107) mmol/L Carbon Dioxide (22-30) mmol/L Creatinine (0.66-1.25) mg/dL Glucose (74-99) mg/dL POC Glucose (mg/dL) 200 H 242 H 193 H (75-99) mg/dL Microbiology - Last 24 Hours (Table) 03/27/21 12:07 Gram Stain - Final Sputum Sputum Culture - Final Assessment and Plan Assessment: Acute on chronic hypoxic and hypercapnic respiratory failure secondary to COPD exacerbation. Chest x-ray showed interstitial edema and diffuse nodular infiltrates possibly related to old granulomatous disease. Possible acute mild CHF. Hypervolemic hyponatremia. Improving Severe COPD and off for 1 antitrypsin deficiency. Paroxysmal atrial fibrillation with rapid ventricular rate. Was on Cardizem drip and anticoagulation with Eliquis Hyperlipidemia Hypertension Previous history of smoking DVT prophylaxis patient is already on Eliquis GI prophylaxis Plan: Patient is being continued on BiPAP 12 x 5. Continue with oxygen supplementation. Patient will be continued on IV Solu-Medrol and duo nebs Antibiotics in the form of cefepime due to prior history of Pseudomonas in the sputum. Follow-up sodium level. Pulmonary and cardiology is on board. Continue to follow closely. Prognosis is guarded. Time with Patient: Greater than 30
--- NOTE | 2021-03-31 10:07 | P.PN ---
Subjective Progress Note Date: 03/30/21 Principal diagnosis: Acute hypoxic respiratory failure Acute COPD exacerbation and mild diastolic CHF. Patient is a pleasant 55-year-old male with a history of alpha 1 antitrypsin deficiency COPD quit smoking in 2019, came in with complaints of severe shortness of breath and patient is presently on BiPAP patient usually uses 4 L of oxygen at home. Patient had a chest x-ray which didn't show any pneumonia patient had multiple hospitalizations for COPD exacerbation patient is presently in A. fib and requiring Cardizem at this time. Patient has been hyponatremic probably because of hyperkalemia and patient receiving IV fluids at this time. Patient will be started on systemic steroids. Patient was comparing of cough unable to get much of the history because of patient being on BiPAP. 03/28/2021 Patient is currently lying in the bed on BiPAP. No complaints of chest pain. Patient is awake alert and oriented. Continued on IV Solu-Medrol and antibiotics and off cefepime and DuoNeb's. Patient has been afebrile. No nausea vomiting or abdominal pain or diarrhea. Laboratory data showed sodium 1:30 potassium 4.8 chloride 82 bicarb is 41 BUN 19 and creatinine 0.35 and blood sugar is 263 03/29/2021 Patient is currently resting in the bed awake Oriented 3. Still on BiPAP on and off. Was able to tolerate oral diet off BiPAP Patient is being continued on IV steroids and DuoNeb's. Heart rate is controlled. Continue with Cardizem 240 mg by mouth daily. Remains on antibiotics in the form of cefepime. Patient has been afebrile. No nausea vomiting or abdominal pain or diarrhea. No complaints of chest pain. 03/30/2021 Patient is currently off BiPAP. On oxygen at 4 L via nasal cannula. Denied any complains of chest pain and breathing status is improving. Still having scattered rhonchi and basilar diminished sounds. No complains of fever or chills. Heart rate is controlled. Remains antibiotics in the form of cefepime. Sputum cultures showed normal respiratory drake. Laboratory data showed sodium 128 potassium 4.5 chloride 87 bicarb is 38 BUN 16 and creatinine 0.27 blood sugar is 227 repeat chest x-ray showed mild diffuse increased lung markings greatest in the right lung lower field findings are improved from comparison. Current medications reviewed. Objective - Vital Signs Vital signs: Vital Signs Temp 97.5 F L 03/30/21 19:47 Pulse 82 03/30/21 19:49 Resp 21 03/30/21 19:49 BP 135/88 03/30/21 19:47 Pulse Ox 97 03/30/21 19:47 Intake & Output 03/30/21 03/30/21 03/31/21 06:59 18:59 06:59 Intake Total 720 Output Total 1660 350 400 Balance -1660 370 -400 Weight 65.5 kg Intake: Oral 720 Output: Urine 1660 350 400 Other: Voiding Method Urinal Urinal # Voids 1 1 - Exam PHYSICAL EXAMINATION: Patient is lying in the bed comfortably, no acute distress, awake alert and oriented.. HEENT: Normocephalic. Neck is supple. Pupils reactive. Nostrils clear. Oral ca vity is moist. Neck reveals no JVD, carotid bruits, or thyromegaly. CHEST EXAMINATION: Trachea is central. Symmetrical expansion. Improved bilateral air entry and scattered rhonchi.. CARDIAC: Normal S1, S2 with no gallops. No murmurs ABDOMEN: Soft. Bowel sounds normal. No organomegaly. No abdominal bruits. Extremities: reveal no edema. No clubbing or cyanosis Neurologically awake, alert, oriented x3 with well-coordinated movements. No focal deficits noted Skin: No rash or skin lesions. Psychiatric: Coperative. Nonsuicidal Musculoskeletal: No joint swelling or deformity. Normal range of motion. - Labs CBC & Chem 7: 03/31/21 06:37 03/31/21 06:37 Labs: Abnormal Lab Results - Last 24 Hours (Table) 03/30/21 03/30/21 03/30/21 Range/Units 05:58 10:54 11:45 Sodium 128 L (137-145) mmol/L Chloride 87 L (98-107) mmol/L Carbon Dioxide 38 H (22-30) mmol/L Creatinine 0.27 L (0.66-1.25) mg/dL Glucose 227 H (74-99) mg/dL POC Glucose (mg/dL) 209 H 199 H (75-99) mg/dL 03/30/21 03/30/21 Range/Units 16:14 19:49 Sodium (137-145) mmol/L Chloride (98-107) mmol/L Carbon Dioxide (22-30) mmol/L Creatinine (0.66-1.25) mg/dL Glucose (74-99) mg/dL POC Glucose (mg/dL) 172 H 221 H (75-99) mg/dL Assessment and Plan Assessment: Acute on chronic hypoxic and hypercapnic respiratory failure secondary to COPD exacerbation. Chest x-ray showed interstitial edema and diffuse nodular infiltrates possibly related to old granulomatous disease. Possible acute mild CHF. Hypervolemic hyponatremia. Improving Severe COPD and off for 1 antitrypsin deficiency. Paroxysmal atrial fibrillation with rapid ventricular rate. Was on Cardizem drip and anticoagulation with Eliquis Hyperlipidemia Hypertension Previous history of smoking DVT prophylaxis patient is already on Eliquis GI prophylaxis Plan: Patient was being continued on BiPAP 12 x 5. Continue with oxygen supplementation 4 L Y nausea cannula.. BiPAP as needed. Patient will be continued on IV Solu-Medrol and duo nebs Antibiotics in the form of cefepime due to prior history of Pseudomonas in the sputum. Continue with Cardizem CD and anticoagulation with Eliquis. Follow-up sodium level. Pulmonary and cardiology is on board. Continue to follow closely. Prognosis is guarded. Time with Patient: Greater than 30
[2021-03-31 12:51] LABS: Glucose,Whole Blood 146 mg/dL (75-99)
--- NOTE | 2021-03-31 14:17 | P.PN ---
Subjective Progress Note Date: 03/31/21 Principal diagnosis: shortness of breath On today's evaluation on 03/22/2021 patient seen in follow-up on selective care unit, he is resting in bed, currently on BiPAP with pressures of 12 over 6 and 40%, breathing comfortably, lung sounds are extremely diminished, with some mild expiratory wheezing. Overall he states his breathing is improving, he is still coughing up some greenish colored phlegm, sputum culture has shown no growth, he remains on cefepime for antibiotic coverage. This had no hemoptysis or chest pain. Today's lab work is still pending, tolerating oral intake, no nausea vomiting or diarrhea, no abdominal pain. he remains on nebulized bronchodilators, IV steroids at 60 mg every 6 hours, we discontinued the Perforomist yesterday due to poor tolerance of the medication, he remains on Pulmicort, DuoNeb 4 times a day and every 2 hours as needed for shortness of breath. On 03/31/2021 patient is seen in follow-up on selective care unit, he is awake and alert, in no acute distress, his been wearing his BiPAP at bedtime with pressures of 12/6 and FiO2 40%, he is currently on 5 L of oxygen with pulse ox of 97%, he states his breathing is improving, his vital signs have been stable, has had no acute events overnight, and chest discomfort. Sputum culture was negative. These labs have been reviewed, his lipid cell count is normal 9.1, hemoglobin is 12.4, sodium is 130, potassium is 4.7, chloride is 85, CO2 40, BUN 17 creatinine 0.28, his chest x-ray today shows a mild diffuse increased lung markings, right greater than left, findings improved from previous chest x-ray Objective - Vital Signs Vital signs: Vital Signs Temp 98.0 F 03/31/21 12:00 Pulse 86 03/31/21 10:56 Resp 20 03/31/21 12:00 BP 133/78 03/31/21 12:00 Pulse Ox 95 03/31/21 12:00 Intake & Output 03/30/21 03/31/21 03/31/21 18:59 06:59 18:59 Intake Total 720 214 Output Total 350 1525 Balance 370 -1525 214 Weight 69 kg Intake: Oral 720 214 Output: Urine 350 1525 Other: Voiding Method Urinal # Voids 1 - Exam GENERAL EXAM: Alert, very pleasant, 55-year-old white male, 4 L of oxygen with pulse ox of 95%, was recently on BiPAP support with pressures of 12/5 and FiO2 of 40%, and has since improved and was able to switch over to nasal cannula and tolerating it well so far comfortable in no apparent distress. HEAD: Normocephalic/atraumatic. EYES: Normal reaction of pupils, equal size. Conjunctiva pink, sclera white. NOSE: Clear with pink turbinates. THROAT: No erythema or exudates. NECK: No masses, no JVD, no thyroid enlargement, no adenopathy. CHEST: No chest wall deformity. Symmetrical expansion. LUNGS: Equal air entry with diffuse coarse crackles, anteriorly and posteriorly, overall diminished breath sounds bilaterally CVS: Regular rate and rhythm, normal S1 and S2, no gallops, no murmurs, no rubs ABDOMEN: Soft, nontender. No hepatosplenomegaly, normal bowel sounds, no guar ding or rigidity. EXTREMITIES: No clubbing, no edema, no cyanosis, 2+ pulses and upper and lower extremities. MUSCULOSKELETAL: Muscle strength and tone normal. SPINE: No scoliosis or deformity SKIN: No rashes CENTRAL NERVOUS SYSTEM: Alert and oriented -3. No focal deficits, tone is normal in all 4 extremities. PSYCHIATRIC: Alert and oriented -3. Appropriate affect. Intact judgment and insight. - Labs CBC & Chem 7: 03/31/21 06:37 03/31/21 06:37 Labs: Abnormal Lab Results - Last 24 Hours (Table) 03/30/21 03/30/21 03/31/21 Range/Units 16:14 19:49 06:09 RBC (4.30-5.90) m/uL Hgb (13.0-17.5) gm/dL Lymphocytes # (1.0-4.8) k/uL Sodium (137-145) mmol/L Chloride (98-107) mmol/L Carbon Dioxide (22-30) mmol/L Creatinine (0.66-1.25) mg/dL Glucose (74-99) mg/dL POC Glucose (mg/dL) 172 H 221 H 152 H (75-99) mg/dL 03/31/21 03/31/21 03/31/21 Range/Units 06:37 06:37 12:04 RBC 4.09 L (4.30-5.90) m/uL Hgb 12.4 L (13.0-17.5) gm/dL Lymphocytes # 0.7 L (1.0-4.8) k/uL Sodium 130 L (137-145) mmol/L Chloride 85 L (98-107) mmol/L Carbon Dioxide 40 H (22-30) mmol/L Creatinine 0.28 L (0.66-1.25) mg/dL Glucose 155 H (74-99) mg/dL POC Glucose (mg/dL) 146 H (75-99) mg/dL Assessment and Plan Plan: Assessment: #1. Acute on chronic hypoxic and hypercapnic respiratory failure related to acute exacerbation of COPD, and possibility of mild diastolic CHF. COVID-19 was negative. Chest x-ray showed pulmonary interstitial edema and diffuse nodular infiltrates possibly related to old granulomatous disease #2. Hyponatremia, improving. Possibly hypervolemic #3. Severe COPD, baseline FEV1 of 19% of predicted, stage IV COPD, on home oxygen at 3 L and AVAPS at bedtime and as needed #4. Alpha I antitrypsin deficiency #5. History of smoking, 36 pack years, in remission for 1 year #6. Former marijuana use #7. Hypertension #8. Paroxysmal atrial fibrillation, currently in A. fib with RVR, on Cardizem infusion, on Eliquis for anticoagulation #9. History of pseudomonas aeruginosa in sputum cultures Plan: Patient is breathing easier Vital signs are stable Patient is alternating between BiPAP support and nasal cannula had no acute events overnight His chest x-ray has been reviewed showing improving pulmonary vascular congestion No fever or chills, Patient is close to his baseline He can be considered for discharge home today on prednisone starting at 40 mg for 5 days, 30 mg for 5 days, and 20 mg daily thereafter Patient has nebulized treatments and inhalers which he can resume, and he does have a machine at home which he can resume Continue to follow I performed a history & physical examination of the patient and discussed their management with my nurse practitioner, Elida Cardoso. I reviewed the nurse practitioner's note and agree with the documented findings and plan of care. Lung sounds are positive for diminished breath sounds throughout the lung miles. The findings and the impression was discussed with the patient. I attest to the documentation by the nurse practitioner. Time with Patient: Less than 30
[2021-03-31 17:10] LABS: Glucose,Whole Blood 170 mg/dL (75-99)
[2021-03-31 17:51] VITALS: BP 114/80; PULSE 97; TEMP 97.6
== END 2021-03-31 17:53 | disposition home or self-care (01) | DRG 190 ==
LOC: EC 13:45 → 3SCARD 16:50
PROVIDERS: ADMIT Hospitalist; ATTEND Hospitalist
DX: J44.1 Chronic obstructive pulmonary disease with (acute) exacerbation (principal); J96.21 Acute and chronic respiratory failure with hypoxia; J96.22 Acute and chronic respiratory failure with hypercapnia; I50.31 Acute diastolic (congestive) heart failure; E87.1 Hypo-osmolality and hyponatremia; I48.3 Typical atrial flutter; E87.2 Acidosis; E78.5 Hyperlipidemia, unspecified; J44.0 Chronic obstructive pulmonary disease with (acute) lower respiratory infection; E87.5 Hyperkalemia; E87.70 Fluid overload, unspecified; E88.01 Alpha-1-antitrypsin deficiency; F03.90 Unspecified dementia, unspecified severity, without behavioral disturbance, psychotic disturbance, mood disturbance, and anxiety; I10 Essential (primary) hypertension; I27.20 Pulmonary hypertension, unspecified; I48.0 Paroxysmal atrial fibrillation; J84.10 Pulmonary fibrosis, unspecified; Z20.822 Contact with and (suspected) exposure to COVID-19; Z79.01 Long term (current) use of anticoagulants; Z79.899 Other long term (current) drug therapy; Z82.49 Family history of ischemic heart disease and other diseases of the circulatory system; Z87.891 Personal history of nicotine dependence; Z99.81 Dependence on supplemental oxygen
CPT/HCPCS: 36415; 71045; 80048; 80053; 82803; 83605; 83735; 83880; 84145; 84484; 85025; 85027; 85610; 85730; 87070; 87205; 87635; 93005; 94640; 94660; 99285

== ENCOUNTER 2021-05-11 16:49 | Inpatient (IN) | payer OTHER ==
[2021-05-11] MEDS ORDERED: methylPREDNISolone SOD SUCCI 125 MG/2 ML VIAL IV STA (17:27)
[2021-05-11] MEDS ORDERED: MAGNESIUM SULFATE-D5W PMX 1 GM in DEXTROSE/WATER 1 100ML.BAG IVPB STA (17:27)
[2021-05-11] MEDS ORDERED: ALBUTEROL NEBULIZED 2.5 MG/3 ML INHALATION STA ×2 (17:28→17:52)
[2021-05-11 17:56] LABS: ALT 34 U/L (4-49); AST 52 U/L (17-59); African American GFR (CKD) >90 (>60 ml/min/1.73 sqM); Albumin 3.8 g/dL (3.5-5.0); Alkaline Phosphatase 108 U/L (38-126); Anion Gap 5 mmol/L; Blood Urea Nitrogen 14 mg/dL (9-20); Calcium 9.3 mg/dL (8.4-10.2); Carbon Dioxide 39 mmol/L (22-30); Chloride 79 mmol/L (98-107); Glucose 177 mg/dL (74-99); Magnesium 1.9 mg/dL (1.6-2.3); Non-African American GFR(CKD) >90 (>60 ml/min/1.73 sqM); Sodium 123 mmol/L (137-145); Total Protein 7.1 g/dL (6.3-8.2)
[2021-05-11 18:06] LABS: HCT 46.7 % (39.0-53.0); MCH 30.9 pg (25.0-35.0); MCV 93.6 fL (80.0-100.0); Mean Platelet Volume 9.2; Partial Thromboplastin Time 26.7 sec (22.0-30.0); Platelet Count 271 k/uL (150-450); Prothrombin Time 10.7 sec (9.0-12.0); RBC 4.99 m/uL (4.30-5.90); RDW 14.4 % (11.5-15.5); WBC 12.9 k/uL (3.8-10.6)
[2021-05-11 18:08] LABS: HGB 15.4 gm/dL (13.0-17.5)
--- NOTE | 2021-05-11 18:09 | ED ---
General Adult HPI - General Chief complaint: Shortness of Breath Stated complaint: SOB Time Seen by Provider: 05/11/21 17:11 Source: patient, EMS, RN notes reviewed, old records reviewed Mode of arrival: EMS Limitations: no limitations - History of Present Illness Initial comments: Patient is a 55-year-old male with past medical history remarkable for COPD on 4 L home oxygen, atrial fibrillation/flutter, hypertension, alpha-1 antitrypsin deficiency, pancreatitis who presents emergency Department with worsening shortness of breath. Patient first dose of shortness of breath overnight last night. He has been attempting uses home breathing treatments without much improvement. He is not vaccinated for COVID-19. He denies any sick contacts, fevers, cough. Denies any abdominal pain, nausea, vomiting. Denies any chest pain. States the shortness of breath is somewhat worse with exertion. He does endorse acute on chronic lower extremity edema. Denies any worsening orthopnea or paroxysmal nocturnal dyspnea. Denies any headaches. Denies any history of blood clots. His no other acute complaint at this time. Patient is concerned for his acute worsening shortness of breath at this time. - Related Data Home Medications Medication Instructions Recorded Confirmed Albuterol Nebulized [Ventolin 2.5 mg INHALATION RT-TID PRN 02/18/20 05/11/21 Nebulized] Albuterol Sulfate [Ventolin HFA] 2 puff INHALATION RT-Q4H PRN 02/18/20 05/11/21 Fluticasone/Umeclidin/Vilanter 1 puff INHALATION RT-DAILY 02/18/20 05/11/21 [Eren Ellipta 100-62.5-25] Mirtazapine [Remeron] 7.5 mg PO HS 11/27/20 05/11/21 ALPRAZolam [Xanax] 0.5 mg PO TID PRN 01/23/21 05/11/21 Loratadine [Claritin] 10 mg PO DAILY 01/23/21 05/11/21 Melatonin 10 mg PO HS 01/23/21 05/11/21 Ascorbic Acid [Vitamin C] 1,000 mg PO DAILY 03/02/21 05/11/21 Cholecalciferol [Vitamin D3 (25 25 mcg PO DAILY 03/02/21 05/11/21 Mcg = 1000 Iu)] Famotidine [Pepcid] 20 mg PO DAILY 03/02/21 05/11/21 Multivitamins, Thera [Multivitamin 1 tab PO DAILY 03/02/21 05/11/21 (formulary)] Vitamin B Complex 1 cap PO DAILY 03/02/21 05/11/21 Sertraline [Zoloft] 50 mg PO DAILY 03/26/21 05/11/21 Diltiazem Cd [Cardizem CD] 240 mg PO DAILY 05/11/21 05/11/21 predniSONE [Deltasone] 20 mg PO DAILY 05/11/21 05/11/21 Previous Rx's Medication Instructions Recorded Apixaban [Eliquis] 5 mg PO BID #60 tab 11/24/20 Allergies Allergy/AdvReac Type Severity Reaction Status Date / Time ampicillin Allergy Unknown Verified 05/11/21 16:59 Childhood formoterol [From Perforomist] Allergy Anaphylaxis Verified 05/11/21 16:59 ipratropium Allergy Anaphylaxis Verified 05/11/21 16:59 Penicillins Allergy Unknown Verified 05/11/21 16:59 Childhood Review of Systems ROS Statement: Those systems with pertinent positive or pertinent negative responses have been documented in the HPI. Review of Systems: CONST: Denies fever EYES: Denies blurry vision ENT: Denies nasal congestion C/V: Denies Chest pain RESP: Endorses shortness of breath GI: Denies abdominal pain : Denies dysuria SKIN: Denies rash. MSK: Denies joint pain. NEURO: Denies headache ROS Other: All systems not noted in ROS Statement are negative. Past Medical History Past Medical History: Atrial Fibrillation, COPD, Hypertension Additional Past Medical History / Comment(s): Alpha 1 antitrypsin deficiency, pancreatitis. History of Any Multi-Drug Resistant Organisms: None Reported Past Surgical History: Tonsillectomy Additional Past Surgical History / Comment(s): Colonoscopy Past Anesthesia/Blood Transfusion Reactions: No Reported Reaction Past Psychological History: No Psychological Hx Reported Smoking Status: Former smoker Past Alcohol Use History: None Reported Past Drug Use History: None Reported - Past Family History Mother Family Medical History: Hypertension Additional Family Medical History / Comment(s): Hip/knee replacements. Mother in her sleep in her 70s. Father Family Medical History: CVA/TIA Additional Family Medical History / Comment(s): Father is . General Exam - General Exam Comments Initial Comments: General: Present mild distress secondary to shortness of breath. HEAD: Normal with no signs of head trauma. EYES: PERRLA, EOMI, conjunctiva normal, no discharge. ENT: Hearing grossly intact, normal oropharynx. RESPIRATORY: Reduced breath sounds bilaterally without x-ray wheezes. No obvious rhonchi. No increased work of breathing. Patient is somewhat hypoxic on his 4 L nasal cannula. No increased 6 L and patient is in the low 90%'s. C/V: Irregular rate and rhythm. S1 and S2 auscultated. Patient has 2+ pitting edema to the midcalf. Peripheral pulses are 2+ and intact. ABD: Abd is soft, nontender, nondistended EXT: Normal range of motion, no obvious deformity SKIN: No rashes or lesions observed on exposed skin. NEURO: Alert and oriented 4. No focal deficits. Limitations: no limitations Course Vital Signs 05/11/21 05/11/21 05/11/21 16:51 17:51 18:09 Temperature 98.4 F Pulse Rate 82 92 79 Respiratory 20 Rate Blood Pressure 149/85 O2 Sat by Pulse 93 L Oximetry 05/11/21 05/11/21 05/11/21 19:39 19:49 21:34 Temperature 97.5 F L Pulse Rate 76 75 61 Respiratory 18 Rate Blood Pressure 127/78 O2 Sat by Pulse 97 Oximetry 05/11/21 22:22 Temperature Pulse Rate 73 Respiratory 18 Rate Blood Pressure 135/82 O2 Sat by Pulse 94 L Oximetry Medical Decision Making - Medical Decision Making Based on the patient's presentation and physical exam, he is likely expressing acute worsening of his chronic lung disease, as he appears to have a COPD exacer bation at this time. However cannot rule out cardiac etiology. Therefore we will obtain a cardiac workup in addition which includes basic labs, troponin, EKG, chest x-ray. Patient will be given albuterol breathing treatments, IV steroids and magnesium for his COPD. We will test the patient for COVID-19. He will be connected to continuous cardiac monitoring while is here in the department. He was in agreement this plan. Patient's EKG shows atrial flutter, which the patient has a history of, that is rate controlled at this time.Chest x-ray reveals increased mild opacities which may represent atelectasis or infiltrates. His chronic changes as well. Laboratory studies are remarkable for a mild leukocytosis of 12.9. Patient is hyponatremic to 123. Patient is hyperkalemic to 6.0 but there is hemolysis which makes this an accurate. Patient's renal function is normal and I suspect this is inaccurate, however we will obtain a repeat potassium level. Patient's initial troponin is indeterminate at 0.018, likely secondary to his COPD. BNP is 442. Covid test is negative. Reevaluation following breathing treatments, patient is feeling somewhat improved, however due to his persistent wheezing as well as findings of possible infiltrates on exam, I would like to admitted to the hospital for COPD exacerbation and community-acquired pneumonia. Patient also has hyponatremia. Patient was in agreement this plan. He'll be started on a 100 mL per hour normal saline drip. as well as rocephin and azithromycin for pneumonia. I spoke with the admitting team ALBARO Do who accepted the admission patient will be admitted to Dr. López. Patient was admitted to a telemetry bed in ser ious condition. - Lab Data Result diagrams: 05/11/21 17:38 05/11/21 17:38 Lab Results 05/11/21 05/11/21 05/11/21 Range/Units 17:38 17:38 17:38 WBC 12.9 H (3.8-10.6) k/uL RBC 4.99 (4.30-5.90) m/uL Hgb 15.4 D (13.0-17.5) gm/dL Hct 46.7 (39.0-53.0) % MCV 93.6 (80.0-100.0) fL MCH 30.9 (25.0-35.0) pg MCHC 33.0 (31.0-37.0) g/dL RDW 14.4 (11.5-15.5) % Plt Count 271 (150-450) k/uL MPV 9.2 Neutrophils % (Manual) 82 % Band Neuts % (Manual) 10 % Lymphocytes % (Manual) 5 % Monocytes % (Manual) 3 % Neutrophils # (Manual) 11.80 H (1.3-7.7) k/uL Lymphocytes # (Manual) 0.65 L (1.0-4.8) k/uL Monocytes # (Manual) 0.39 (0-1.0) k/uL Nucleated RBCs 0 (0-0) /100 WBC Manual Slide Review Performed PT 10.7 (9.0-12.0) sec INR 1.0 (<1.2) APTT 26.7 (22.0-30.0) sec Sodium 123 L (137-145) mmol/L Potassium 6.0 H (3.5-5.1) mmol/L Chloride 79 L (98-107) mmol/L Carbon Dioxide 39 H (22-30) mmol/L Anion Gap 5 mmol/L BUN 14 (9-20) mg/dL Creatinine 0.18 L (0.66-1.25) mg/dL Est GFR (CKD-EPI)AfAm >90 (>60 ml/min/1.73 sqM) Est GFR (CKD-EPI)NonAf >90 (>60 ml/min/1.73 sqM) Glucose 177 H (74-99) mg/dL Calcium 9.3 (8.4-10.2) mg/dL Magnesium 1.9 (1.6-2.3) mg/dL Total Bilirubin 1.0 (0.2-1.3) mg/dL AST 52 (17-59) U/L ALT 34 (4-49) U/L Alkaline Phosphatase 108 (38-126) U/L Troponin I (0.000-0.034) ng/mL NT-Pro-B Natriuret Pep pg/mL Total Protein 7.1 (6.3-8.2) g/dL Albumin 3.8 (3.5-5.0) g/dL Coronavirus (PCR) (Not Detectd) 05/11/21 05/11/21 05/11/21 Range/Units 17:38 17:38 17:38 WBC (3.8-10.6) k/uL RBC (4.30-5.90) m/uL Hgb (13.0-17.5) gm/dL Hct (39.0-53.0) % MCV (80.0-100.0) fL MCH (25.0-35.0) pg MCHC (31.0-37.0) g/dL RDW (11.5-15.5) % Plt Count (150-450) k/uL MPV Neutrophils % (Manual) % Band Neuts % (Manual) % Lymphocytes % (Manual) % Monocytes % (Manual) % Neutrophils # (Manual) (1.3-7.7) k/uL Lymphocytes # (Manual) (1.0-4.8) k/uL Monocytes # (Manual) (0-1.0) k/uL Nucleated RBCs (0-0) /100 WBC Manual Slide Review PT (9.0-12.0) sec INR (<1.2) APTT (22.0-30.0) sec Sodium (137-145) mmol/L Potassium (3.5-5.1) mmol/L Chloride (98-107) mmol/L Carbon Dioxide (22-30) mmol/L Anion Gap mmol/L BUN (9-20) mg/dL Creatinine (0.66-1.25) mg/dL Est GFR (CKD-EPI)AfAm (>60 ml/min/1.73 sqM) Est GFR (CKD-EPI)NonAf (>60 ml/min/1.73 sqM) Glucose (74-99) mg/dL Calcium (8.4-10.2) mg/dL Magnesium (1.6-2.3) mg/dL Total Bilirubin (0.2-1.3) mg/dL AST (17-59) U/L ALT (4-49) U/L Alkaline Phosphatase (38-126) U/L Troponin I 0.018 (0.000-0.034) ng/mL NT-Pro-B Natriuret Pep 442 pg/mL Total Protein (6.3-8.2) g/dL Albumin (3.5-5.0) g/dL Coronavirus (PCR) Not Detected (Not Detectd) - EKG Data -: EKG Interpreted by Me EKG Comments: 12-lead Electrocardiogram Interpretation Note EKG was reviewed and interpreted by myself. 12-lead ECG performed at 1704 is interpreted by me as revealing atrial flutter with 4-1 conduction at a rate of 82 beats per minute. [place] is normal. IA interval is unobtainable, QR hoahaoism is 112 ms, QTc is 411 ms.. There were no ST or T wave abnormalities to suggest myocardial ischemia or injury. R wave progression across the precordium was satisfactory. By my interpretation this EKG is non-diagnostic for acute ischemia. Disposition Clinical Impression: COPD exacerbation, Chronic respiratory failure with hypoxia, Hyponatremia, Pneumonia Disposition: ADMITTED IP TO THIS HOSP Condition: Serious
[2021-05-11 18:18] LABS: Band Neutrophils % 10 %; Lymphocytes # (M) 0.65 k/uL (1.0-4.8); Monocytes # (M) 0.39 k/uL (0-1.0); Neutrophils % (M) 82 %; Nucleated Red Blood Cells 0 /100 WBC (0-0); Total Cells Counted 100
--- NOTE | 2021-05-11 18:58 | XR ---
EXAMINATION TYPE: XR chest 2V DATE OF EXAM: 05/11/2021 COMPARISON: 03/30/2021. HISTORY: Shortness of breath TECHNIQUE: Frontal and lateral views of the chest are obtained. FINDINGS: There is mildly increased diffuse mild hazy opacity. There is chronic bilateral micronodul arity of the lungs. No pleural effusion, or pneumothorax seen. The cardiac silhouette size is within normal limits. The osseous structures are intact. IMPRESSION: Increased mild opacities, may represent atelectasis or infiltrates. Chronic micronodularity.
[2021-05-11] MEDS ORDERED: ONDANSETRON 4 MG/2 ML VIAL IVP PRN (19:51)
[2021-05-11] MEDS ORDERED: KETOROLAC 15 MG/ML 1 ML VIAL IVP PRN (19:51)
[2021-05-11] MEDS ORDERED: ACETAMINOPHEN TAB 325 MG TAB PO PRN (19:51)
[2021-05-11] MEDS ORDERED: ALBUTEROL NEBULIZED 2.5 MG/3 ML INHALATION SCH (20:00)
[2021-05-11] MEDS ORDERED: AZITHROMYCIN 500 MG in SODIUM CHLORIDE 0.9% 250 ML IVPB STA (20:26)
[2021-05-11] MEDS ORDERED: ALBUTEROL NEBULIZED 2.5 MG/3 ML INHALATION PRN (20:31)
[2021-05-11] MEDS: APIXABAN 5 MG TAB PO SCH (22:34)
[2021-05-11] MEDS ORDERED: SODIUM CHLORIDE 0.9% 1,000 ML IV STA (23:01)
[2021-05-11] MEDS: ALPRAZolam 0.5 MG TAB PO PRN (23:56)
[2021-05-12] MEDS: methylPREDNISolone SOD SUCCI 40 MG/ML 1 ML VIAL IV SCH ×3 (01:41→13:13)
[2021-05-12] MEDS ORDERED: MELATONIN 5 MG TABLET PO PRN (06:55)
--- NOTE | 2021-05-12 07:15 | XR ---
EXAMINATION TYPE: XR chest 1V portable DATE OF EXAM: 05/12/2021 Comparison: 05/11/2021 Clinical History: 55-year-old male with shortness of breath, dyspnea Findings: Patient is rotated towards the right altering the normal cardiomediastinal contours. Hyperinflation. Increased reticular and reticulonodular opacities are present throughout. No pleural effusion. Overal l heart size appears normal. Impression: COPD with persistent bilateral interstitial infiltrates.
[2021-05-12] MEDS: ALBUTEROL NEBULIZED 2.5 MG/3 ML INHALATION SCH ×4 (07:44→20:13)
--- NOTE | 2021-05-12 08:51 | P.HPIM ---
History of Present Illness This is a pleasant 55 years old male with past medical history of hypertension, COPD secondary to alpha-1 antitrypsin deficiency, pancreatitis and atrial fibrillation on Eliquis. 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 He denies smoking, alcohol or illicit drugs He's on 4 L oxygen via nasal cannula at home and 20 mg of prednisone daily. He is currently saturating 90-97% on 6 L oxygen via nasal cannula, and afebrile and dressed vitals are stable Labs showing mild leukocytosis of 12.9 K, sodium 123, his sodium went baseline is ranging 126-135 potassium 6.0, creatinine 0.18. Troponin are negative 3 at 0.018, less than 0.012 and less than 0.012. And coronavirus not detected. Chest x-ray showing increased mild opacity may represent atelectasis or infiltrate, chronic micronodular T EKG showing atrial flutter with a 421 A-V block conduction and a rate of 82, QTC 411 Chest x-ray showed increased mild opacity may represent atelectasis or infiltrate In the emergency room he was started on ceftriaxone and Zithromax, Solu-Medrol 40 mg and her symptom IV fluids On admission pulmonary team were consulted Review of Systems CONSTITUTIONAL: No fever, no malaise, no fatigue. HEENT: No recent visual problems or hearing problems. Denied any sore throat. CARDIOVASCULAR: No orthopnea, PND, no palpitations, no syncope. PULMONARY: No chest wall tenderness, no hemoptysis. GASTROINTESTINAL: No diarrhea, no nausea, no vomiting, no abdominal pain. Normoactive bowel sounds. NEUROLOGICAL: No headaches, no weakness, no numbness. HEMATOLOGICAL: Denies any bleeding or petechiae. GENITOURINARY: Denies any burning micturition, frequency, or urgency. MUSCULOSKELETAL/RHEUMATOLOGICAL: Denies any joint pain, swelling, or any muscle pain. ENDOCRINE: Denies any polyuria or polydipsia. Past Medical History Past Medical History: Atrial Fibrillation, COPD, Hypertension Additional Past Medical History / Comment(s): Alpha 1 antitrypsin deficiency, pancreatitis. History of Any Multi-Drug Resistant Organisms: None Reported Past Surgical History: Tonsillectomy Additional Past Surgical History / Comment(s): Colonoscopy Past Anesthesia/Blood Transfusion Reactions: No Reported Reaction Past Psychological History: No Psychological Hx Reported Smoking Status: Former smoker Past Alcohol Use History: None Reported Past Drug Use History: None Reported - Past Family History Mother Family Medical History: Hypertension Additional Family Medical History / Comment(s): Hip/knee replacements. Mother in her sleep in her 70s. Father Family Medical History: CVA/TIA Additional Family Medical History / Comment(s): Father is . Medications and Allergies Home Medications Medication Instructions Recorded Confirmed Type Albuterol Nebulized [Ventolin 2.5 mg INHALATION RT-TID PRN 02/18/20 05/11/21 History Nebulized] Albuterol Sulfate [Ventolin HFA] 2 puff INHALATION RT-Q4H PRN 02/18/20 05/11/21 History Fluticasone/Umeclidin/Vilanter 1 puff INHALATION RT-DAILY 02/18/20 05/11/21 History [Eren Ellipta 100-62.5-25] Apixaban [Eliquis] 5 mg PO BID #60 tab 11/24/20 05/11/21 Rx Mirtazapine [Remeron] 7.5 mg PO HS 11/27/20 05/11/21 History ALPRAZolam [Xanax] 0.5 mg PO TID PRN 01/23/21 05/11/21 History Loratadine [Claritin] 10 mg PO DAILY 01/23/21 05/11/21 History Melatonin 10 mg PO HS 01/23/21 05/11/21 History Ascorbic Acid [Vitamin C] 1,000 mg PO DAILY 03/02/21 05/11/21 History Cholecalciferol [Vitamin D3 (25 25 mcg PO DAILY 03/02/21 05/11/21 History Mcg = 1000 Iu)] Famotidine [Pepcid] 20 mg PO DAILY 03/02/21 05/11/21 History Multivitamins, Thera [Multivitamin 1 tab PO DAILY 03/02/21 05/11/21 History (formulary)] Vitamin B Complex 1 cap PO DAILY 03/02/21 05/11/21 History Sertraline [Zoloft] 50 mg PO DAILY 03/26/21 05/11/21 History Diltiazem Cd [Cardizem CD] 240 mg PO DAILY 05/11/21 05/11/21 History predniSONE [Deltasone] 20 mg PO DAILY 05/11/21 05/11/21 History Allergies Allergy/AdvReac Type Severity Reaction Status Date / Time ampicillin Allergy Unknown Verified 05/11/21 16:59 Childhood formoterol [From Perforomist] Allergy Anaphylaxis Verified 05/11/21 16:59 ipratropium Allergy Anaphylaxis Verified 05/11/21 16:59 Penicillins Allergy Unknown Verified 05/11/21 16:59 Childhood Physical Exam Vitals: Vital Signs Temp Pulse Resp BP Pulse Ox 05/12/21 06:00 68 19 122/82 97 05/12/21 05:00 80 15 128/77 92 L 05/12/21 04:00 79 14 126/64 94 L 05/12/21 01:00 64 22 99/59 95 05/12/21 00:16 64 18 116/73 94 L 05/11/21 22:22 73 18 135/82 94 L 05/11/21 21:34 97.5 F L 61 18 127/78 97 05/11/21 19:49 75 05/11/21 19:39 76 05/11/21 18:09 79 05/11/21 17:51 92 05/11/21 16:51 98.4 F 82 20 149/85 93 L Intake and Output 05/11/21 05/11/21 05/12/21 14:59 22:59 06:59 Other: Weight 66.678 kg GENERAL: The patient is alert and oriented x3, not in any acute distress. Well developed, well nourished. HEENT: Pupils are round and equally reacting to light. EOMI. No scleral icterus. No conjunctival pallor. Normocephalic, atraumatic. No pharyngeal erythema. No thyromegaly. CARDIOVASCULAR: S1 and S2 present. No murmurs, rubs, or gallops. PULMONARY: Chest is clear to auscultation, bilateral expiratory wheezing- ABDOMEN: Soft, nontender, nondistended, normoactive bowel sounds. No palpable organomegaly. MUSCULOSKELETAL: No joint swelling or deformity. EXTREMITIES: No cyanosis, clubbing, or pedal edema. NEUROLOGICAL: Gross neurological examination did not reveal any focal deficits. SKIN: No rashes. No petechiae Results CBC & Chem 7: 05/11/21 17:38 05/12/21 01:23 Labs: Abnormal Lab Results - Last 24 Hours (Table) 05/11/21 05/11/21 05/12/21 Range/Units 17:38 17:38 01:23 WBC 12.9 H (3.8-10.6) k/uL Neutrophils # (Manual) 11.80 H (1.3-7.7) k/uL Lymphocytes # (Manual) 0.65 L (1.0-4.8) k/uL Sodium 123 L (137-145) mmol/L Potassium 6.0 H 5.2 H (3.5-5.1) mmol/L Chloride 79 L (98-107) mmol/L Carbon Dioxide 39 H (22-30) mmol/L Creatinine 0.18 L (0.66-1.25) mg/dL Glucose 177 H (74-99) mg/dL Assessment and Plan Assessment: Acute COPD exacerbation Atrial flutter with 4:1 A-V conduction History of alpha-1 antitrypsin deficiency Hypertension Chronic hyponatremia Chronic atrial fibrillation on Eliquis and raped is controlled. Currently is on a flutter with 4:1 A-V conduction History of pancreatitis Plan: This is a pleasant 55 years old male who presents with acute COPD exacerbation, And atrial flutter With steroids, bronchodilators, oxygen. And continue with antibiotic Follow-up with pulmonary consult Telemetry and cardiology consult Labs and medication were reviewed.. Continue same treatment. Continue with symptomatic treatment. Resume home medication. Monitor lytes and vitals. DVT and GI prophylaxis. Further recommendations depends on the clinical course of the patient DVT prophylaxis:Eliquis GI Prophylaxis: Pepcid Prognosis is guarded
[2021-05-12 09:22] LABS: Basophils # (A) 0 X 10*3/uL (0.00-0.10); Basophils % (A) 0 %; Eosinophils # (A) 0 X 10*3/uL (0.04-0.35); Eosinophils % (A) 0 %; HCT 44.5 % (39.6-50.0); HGB 13.5 g/dL (13.0-17.0); Lymphocytes # (A) 0.51 X 10*3/uL (0.90-5.00); Lymphocytes % (A) 6.9 %; MCH 28.6 pg (27.0-32.0); MCHC 30.3 g/dL (32.0-37.0); MCV 94.3 fL (80.0-97.0); Mean Platelet Volume 9.1 fL (9.5-12.2); Monocytes # (A) 0.17 X 10*3/uL (0.20-1.00); Monocytes % (A) 2.3 %; Neutrophils # (A) 6.67 X 10*3/uL (1.80-7.70); Neutrophils % (A) 90.3 %; Platelet Count 343 X 10*3/uL (140-440); RBC 4.72 X 10*6/uL (4.40-5.60); WBC 7.39 X 10*3/uL (4.50-10.00)
[2021-05-12] MEDS: FLUTICASONE INHALATION SCH (09:34)
[2021-05-12] MEDS: VILANTER INHALATION SCH (09:34)
[2021-05-12] MEDS: UMECLIDIN BL INHALATION SCH (09:34)
[2021-05-12] MEDS: APIXABAN 5 MG TAB PO SCH ×3 (09:35→20:45)
[2021-05-12] MEDS: FAMOTIDINE 20 MG TAB PO SCH (09:47)
[2021-05-12] MEDS: DILTIAZEM CD 240 MG CAP.ER.24H PO SCH (09:48)
[2021-05-12] MEDS: SERTRALINE 50 MG TAB PO SCH (09:48)
[2021-05-12] MEDS: LORATADINE 10 MG TAB PO SCH (09:48)
[2021-05-12 10:08] LABS: Calcium 8.7 mg/dL (8.7-10.3); Carbon Dioxide >40.0 mmol/L (21.6-31.8); Chloride 82 mmol/L (96-109); Glucose 223 mg/dL (70-110); Non-African American GFR(CKD) 133.7 (60.0-200.0); Potassium 5.3 mmol/L (3.5-5.5); Sodium 130 mmol/L (135-145)
--- NOTE | 2021-05-12 13:39 | CONS ---
CONSULTATION Mr. Daigle is a 55-year-old gentleman with history of COPD, hypertension and paroxysmal atrial fibrillation who presents to the hospital because of shortness of breath. Cardiology has been consulted because of cardiac arrhythmia. He has COPD and is currently on home O2, has atrial fibrillation and flutter, has antitrypsin deficiency and episodes of pancreatitis. He comes in complaining of shortness of breath. This started last night and has gotten gradually worse. He has worsening leg edema. There is no history of PND or orthopnea. At the time of my evaluation, he appears comfortable at rest, saturating well, remains in atrial flutter with controlled ventricular rate. LABS: Labs show that the troponins are negative. Coronavirus is negative and elevated potassium that has come down to 5.2. His creatinine is 0.18. White cell count is slightly elevated. Hemoglobin is 15.4. PAST MEDICAL HISTORY: Significant for atrial fibrillation/flutter, COPD, alpha-1 antitrypsin deficiency, hypertension, dyslipidemia. CURRENT MEDICATIONS: Include Cardizem CD 240 daily, Zoloft, Remeron, melatonin, Claritin, Pepcid, Eliquis 5 b.i.d., albuterol and Xanax. ALLERGIES: TO AMPICILLIN, IPRATROPIUM AND PENICILLIN. FAMILY HISTORY: Negative for premature coronary artery disease. SOCIAL HISTORY: He denies current smoking, EtOH abuse, or drug abuse. REVIEW OF SYSTEMS: HEENT is unremarkable. CARDIAC as described above. RESPIRATORY as described above. GI negative. GENITOURINARY negative. ALLERGY/IMMUNOLOGY: None. SKIN negative. MUSCULOSKELETAL exam significant for arthritis. PSYCHOSOCIAL negative. DERM negative. CONSTITUTIONAL negative. BLOWER INSTALLER negative. ONCOLOGICAL negative. Rest of the system review is not relevant. EXAM: Heart rate is 80 beats per minute. Blood pressure is 130/82, respiratory rate is 18, O2 saturation is 97% on 6 L. There is no jugular venous distention. CHEST exam reveals bilateral rhonchi. HEART exam reveals first and second heart sounds and a systolic murmur at the left lower sternal border. ABDOMEN: Soft. Exam of EXTREMITIES reveals bilateral 1+ pitting edema. Labs are as described above. ASSESSMENT: 1. Atrial flutter with controlled ventricular rate. This is very similar to the EKG that he had at last admission. It could even represent an atrial tachycardia. 2. Chronic obstructive pulmonary disease exacerbation. 3. Hypertension. PLAN: I will continue the Cardizem CD and Eliquis that he is on. Continue the antibiotics, inhalers and nebulizers. Obtain a 2D echo to assess his LV function and decide on further course of action based on how he progresses. [place] / ED: [id number] /
[2021-05-12] MEDS ORDERED: IPRATROPIUM-ALBUTEROL 3 ML NEB INHALATION SCH (16:00)
--- NOTE | 2021-05-12 16:00 | P.CNPUL ---
History of Present Illness Consult date: 05/12/21 Reason for consult: dyspnea, COPD History of present illness: 55-year-old white male patient with history of severe COPD/emphysema, alpha-1 antitrypsin deficiency,, with baseline FEV1 of 19% of predicted and severe diffusion abnormality of 40% of predicted. Patient was recently hospitalized 10/27/2020 through 11/01/2020 and later on hospitalized between 11/23/2020 and 12/01/2020 for acute exacerbation of severe COPD. He is on nebulized DuoNeb, Trelegy Ellipta [phone] one puff inhalation daily. The patient also has a a a AVAPS machine at home but utilizes for chronic hypercapnic respiratory failure and recurrent COPD exacerbation. Patient is an ex-smoker, however has not smoked 1 year, prior to that smoked for 36 years pack a day, in addition had smoked marijuana. His other medical history hypertension, his blood pressure me dication had to be by his primary care physician Dr. Juan C Gifford furthermore, worked up this patient for endobronchial valve insertion/lung volume reduction and as part of his workup, he underwent a high resolution computed tomography scan of the chest and this was consistent with COPD and he underwent a blood gas that showed significant CO2 retention with a pCO2 of 75 and a pH of 7.4 and a pO2 of 44 and this was on room air oxygen. Based on his underlying CO2 retention, he was essentially got disqualified for endobronchial valve insertion. I was coordinating all this work through this patient and [facility]. Based on all this, the skin is a case of advanced, and states COPD with recurrent hospitalization. The most recent hospitalization for this patient was an 03/27/2021 and the patient was discharged home on 03/31/2021. He is a nonsmoker. He presented back to the hospital because of worsening shortness of breath. He denied having any smoking history. He was taking predn isone 20 mg by mouth daily in addition to other maintenance stop the medications. I'm not absolutely sure the patient was still using his AV APS machine. The patient was placed on 6 L about 2 by nasal cannula to bring his saturation above 90%. White cell count was at 12.9. Sodium level was 123. Troponins 3 has been 0.01 and COVID-19 testing was negative. Chest x-ray showed hyperinflation and diffuse emphysema. EKG showed atrial flutter rhythm. No altered mentation. No pleurisy. No hemoptysis. No chest pain. She was given IV fluids. Sodium level improved from 123 at baseline is up to 1:30. Serum bicarb is above 40. Creatinine is at 0.4 with a BUN of 11. White cell count is at 7.39. Review of Systems Constitutional: Denies chills, Denies fever, extremity debilitated with a very poor performance and functional status. He gets short of breath with limited amount of activity and even while talking. Eyes: denies blurred vision, denies pain Ears, nose, mouth and throat: Denies headache, Denies sore throat Cardiovascular: Denies chest pain, shortness of breath, with limited amount of activity and even at rest and the patient has significant limitation of exercise capacity. Respiratory: Reports dyspnea, Reports home oxygen, Reports respiratory infections, Denies cough Gastrointestinal: Denies abdominal pain, Denies diarrhea, Denies nausea, Denies vomiting Musculoskeletal: Denies myalgias Integumentary: Denies pruritus, Denies rash Neurological: Denies numbness, generalized motor weakness in all 4 extremities Psychiatric: Denies anxiety, Denies depression Endocrine: fatigue, patient has lost significant amount of weight over the years. The patient has also chronic fatigue and tiredness Past Medical History Past Medical History: Atrial Fibrillation, COPD, Hypertension Additional Past Medical History / Comment(s): Alpha 1 antitrypsin deficiency, pancreatitis. History of Any Multi-Drug Resistant Organisms: None Reported Past Surgical History: Tonsillectomy Additional Past Surgical History / Comment(s): Colonoscopy Past Anesthesia/Blood Transfusion Reactions: No Reported Reaction Past Psychological History: No Psychological Hx Reported Smoking Status: Former smoker Past Alcohol Use History: None Reported Past Drug Use History: None Reported - Past Family History Mother Family Medical History: Hypertension Additional Family Medical History / Comment(s): Hip/knee replacements. Mother in her sleep in her 70s. Father Family Medical History: CVA/TIA Additional Family Medical History / Comment(s): Father is . Medications and Allergies Home Medications Medication Instructions Recorded Confirmed Type Albuterol Nebulized [Ventolin 2.5 mg INHALATION RT-TID PRN 02/18/20 05/11/21 History Nebulized] Albuterol Sulfate [Ventolin HFA] 2 puff INHALATION RT-Q4H PRN 02/18/20 05/11/21 History Fluticasone/Umeclidin/Vilanter 1 puff INHALATION RT-DAILY 02/18/20 05/11/21 History [Trelecynthia Ellipta 100-62.5-25] Apixaban [Eliquis] 5 mg PO BID #60 tab 11/24/20 05/11/21 Rx Mirtazapine [Remeron] 7.5 mg PO HS 11/27/20 05/11/21 History ALPRAZolam [Xanax] 0.5 mg PO TID PRN 01/23/21 05/11/21 History Loratadine [Claritin] 10 mg PO DAILY 01/23/21 05/11/21 History Melatonin 10 mg PO HS 01/23/21 05/11/21 History Ascorbic Acid [Vitamin C] 1,000 mg PO DAILY 03/02/21 05/11/21 History Cholecalciferol [Vitamin D3 (25 25 mcg PO DAILY 03/02/21 05/11/21 History Mcg = 1000 Iu)] Famotidine [Pepcid] 20 mg PO DAILY 03/02/21 05/11/21 History Multivitamins, Thera [Multivitamin 1 tab PO DAILY 03/02/21 05/11/21 History (formulary)] Vitamin B Complex 1 cap PO DAILY 03/02/21 05/11/21 History Sertraline [Zoloft] 50 mg PO DAILY 03/26/21 05/11/21 History Diltiazem Cd [Cardizem CD] 240 mg PO DAILY 05/11/21 05/11/21 History predniSONE [Deltasone] 20 mg PO DAILY 05/11/21 05/11/21 History Allergies Allergy/AdvReac Type Severity Reaction Status Date / Time ampicillin Allergy Unknown Verified 05/11/21 16:59 Childhood formoterol [From Perforomist] Allergy Anaphylaxis Verified 05/11/21 16:59 ipratropium Allergy Anaphylaxis Verified 05/11/21 16:59 Penicillins Allergy Unknown Verified 05/11/21 16:59 Childhood Physical Exam Vitals: Vital Signs Temp Pulse Resp BP Pulse Ox 05/12/21 11:27 82 05/12/21 11:16 81 05/12/21 10:34 80 18 96 05/12/21 10:00 80 18 96 05/12/21 09:00 80 18 121/79 96 05/12/21 08:04 81 05/12/21 08:00 81 16 97 05/12/21 07:44 80 05/12/21 06:00 68 19 122/82 97 05/12/21 05:00 80 15 128/77 92 L 05/12/21 04:00 79 14 126/64 94 L 05/12/21 01:00 64 22 99/59 95 05/12/21 00:16 64 18 116/73 94 L 05/11/21 22:22 73 18 135/82 94 L 05/11/21 21:34 97.5 F L 61 18 127/78 97 05/11/21 19:49 75 05/11/21 19:39 76 05/11/21 18:09 79 05/11/21 17:51 92 05/11/21 16:51 98.4 F 82 20 149/85 93 L GENERAL EXAM: Alert, very pleasant, 55-year-old white male, breathing is comfortable. He is not using excessive muscle breathing. On 4 liters/min NC HEAD: Normocephalic/atraumatic. EYES: Normal reaction of pupils, equal size. Conjunctiva pink, sclera white. NOSE: Clear with pink turbinates. THROAT: No erythema or exudates. NECK: No masses, no JVD, no thyroid enlargement, no adenopathy. CHEST: No chest wall deformity. Symmetrical expansion. Some mild tenderness to palpation over sternal area with coughing, reproducible LUNGS: Equal air entry with diffuse coarse crackles, anteriorly and posteriorly, overall diminished breath sounds bilaterally CVS: Regular rate and rhythm, normal S1 and S2, no gallops, no murmurs, no rubs ABDOMEN: Soft, nontender. No hepatosplenomegaly, normal bowel sounds, no guarding or rigidity. EXTREMITIES: No clubbing, no edema, no cyanosis, 2+ pulses and upper and lower extremities. MUSCULOSKELETAL: Muscle strength and tone normal. SPINE: No scoliosis or deformity SKIN: No rashes CENTRAL NERVOUS SYSTEM: Alert and oriented -3. No focal deficits, tone is no rmal in all 4 extremities. PSYCHIATRIC: Alert and oriented -3. Appropriate affect. Intact judgment and insight. Results - Laboratory Findings CBC and BMP: 05/12/21 05:30 09/09/21 05:30 PT/INR, D-dimer PT 10.7 sec (9.0-12.0) 05/11/21 17:38 INR 1.0 (<1.2) 05/11/21 17:38 Abnormal lab findings: Abnormal Labs 05/11/21 05/11/21 05/12/21 17:38 17:38 01:23 WBC 12.9 H MCHC MPV Neutrophils # (Manual) 11.80 H Lymphocytes # Lymphocytes # (Manual) 0.65 L Monocytes # Eosinophils # Sodium 123 L Potassium 6.0 H 5.2 H Chloride 79 L Carbon Dioxide 39 H Creatinine 0.18 L BUN/Creatinine Ratio Glucose 177 H 05/12/21 05/12/21 05:30 05:30 WBC MCHC 30.3 L MPV 9.1 L Neutrophils # (Manual) Lymphocytes # 0.51 L Lymphocytes # (Manual) Monocytes # 0.17 L Eosinophils # 0 L Sodium 130 L Potassium Chloride 82 L Carbon Dioxide >40.0 H* Creatinine 0.4 L BUN/Creatinine Ratio 27.50 H Glucose 223 H - Diagnostic Findings Chest x-ray: image reviewed Assessment and Plan Plan: #1. Acute on chronic hypoxic and hypercapnic respiratory failure related to acute exacerbation of COPD . COVID 19 was negative. Patient has advanced lung disease. The patient has had recurrent COPD exacerbations. His current chest x-ray showing some increased interstitial markings bilaterally. The patient has had recurrent hospitalization the patient has been hospitalized almost every 2 months for ongoing COPD related complications. For now, denies any signs of an infection. He has limited on Trelegy Ellipta one inhalation a day, prednisone 20 mg by mouth daily and albuterol neb regimen sound the clock. He also has a a AVAPS machine at home which probably is not using on a regular basis. He is a nonsmoker. His baseline FEV1 is noted of 19% of predicted. Extremely poor baseline performance and functional status. Also looks cachectic and malnourished. #2. Severe COPD, baseline FEV1 of 19% of predicted, stage IV COPD, on home oxygen at 4 L . The patient is a chronic CO2 retainer. He was not found to be a candidate for endobronchial [place] valve insertion because of chronic hypercapnic respiratory failure. #3. Alpha-1 anti-trypsin efficiency #4. 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 Hypertension #6 PAF/flutter current rhythm is sinus and the patient is on long-term anticoagulation with Eliquis.. The patient was in a flutter at the time of a dmission was 4:1 conduction block and heart rate is improved right now and is under better control. 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 His current heart rate is in the mid 80s. #7 borderline concentric LVH/hypertensive heart disease with a preserved LV function and ejection fraction of 6065%, mild pulmonary hypertension #8 previous sputum colonization/infection with pseudomonas aeruginosa based on the sputum analysis that was done on 11/24/2020 and 03/02/2021. Plan: Continue DuoNeb nebulized treatments around the clock IV Solu Medrol 60 mg every 6 hours Repeat sputum samples Continue current antibiotics with understanding that the patient has been colonized/infected with pseudomonas in the past Anticoagulation with Eliquis 5 mg by mouth twice a day Cardizem CD 240 mg for rate control once a day resume all medication including Xanax for anxiety Continue Zoloft We'll continue to follow. Prognosis extremely poor. I think initiating care discussion for hospice is important. Patient would benefit from an AV APS machine which she has at home and compliance with this machine was emphasized to the patient.
[2021-05-12] MEDS: methylPREDNISolone SOD SUCCI 125 MG/2 ML VIAL IV SCH (18:35)
[2021-05-12] MEDS: MIRTAZAPINE 15 MG TAB PO SCH (20:44)
[2021-05-12] MEDS: ALPRAZolam 0.5 MG TAB PO PRN (22:23)
[2021-05-13] MEDS: methylPREDNISolone SOD SUCCI 125 MG/2 ML VIAL IV SCH ×5 (00:25→23:26)
[2021-05-13] MEDS ORDERED: AZITHROMYCIN 500 MG in SODIUM CHLORIDE 0.9% 250 ML IVPB SCH (02:00)
[2021-05-13] MEDS: APIXABAN 5 MG TAB PO SCH ×2 (07:32→23:24)
[2021-05-13] MEDS: DILTIAZEM CD 240 MG CAP.ER.24H PO SCH (07:32)
[2021-05-13] MEDS: LORATADINE 10 MG TAB PO SCH (07:32)
[2021-05-13] MEDS: FAMOTIDINE 20 MG TAB PO SCH (07:33)
[2021-05-13] MEDS: FLUTICASONE INHALATION SCH (07:33)
[2021-05-13] MEDS: SERTRALINE 50 MG TAB PO SCH (07:33)
[2021-05-13] MEDS: UMECLIDIN BL INHALATION SCH (07:33)
[2021-05-13] MEDS: VILANTER INHALATION SCH (07:33)
[2021-05-13] MEDS: ALBUTEROL NEBULIZED 2.5 MG/3 ML INHALATION SCH ×4 (09:17→20:14)
--- NOTE | 2021-05-13 11:01 | ECHOF ---
Referral Reason:lv function MEASUREMENTS -------- HEIGHT: 182.9 cm WEIGHT: 66.7 kg BP: RVIDd: 3.0 cm (< 3.3) IVSd: 1.1 cm (0.6 - 1.1) LVIDd: 4.5 cm (3.9 - 5.3) LVPWd: 1.1 cm (0.6 - 1.1) IVSs: 1.3 cm LVIDs: 3.6 cm LVPWs: 1.4 cm MV E Tomas: 0.71 m/s MV DecT: 141 ms MV A Tomas: 0.55 m/s MV E/A Ratio: 1.31 RAP: 5.00 mmHg RVSP: 32.94 mmHg FINDINGS -------- Sinus rhythm. This was a technically good study. LV size, wall thickness and systolic function are normal, with an EF greater than 55%. The left fadumo tricular size is normal. The right ventricle is normal in size. , and the LA measures {LA Diam}. The right atrial size is normal. The aortic valve is trileaflet, and appears structurally normal. No aortic stenosis or regurgitation. Mild mitral regurgitation is present. Mild tricuspid regurgitation present. Right ventricular systolic pressure is normal at < 35 mmHg. Possible mass in IVC/RA Junction, consider CT. There is no pericardial effusion. CONCLUSIONS -------- 1. LV size, wall thickness and systolic function are normal, with an EF greater than 55%. 2. The left ventricular size is normal. 3. The right ventricle is normal in size. 4. , and the LA measures {LA Diam}. 5. The right atrial size is normal. 6. The aortic valve is trileaflet, and appears structurally normal. No aortic stenosis or regurgitati on. 7. Mild mitral regurgitation is present. 8. Mild tricuspid regurgitation present. 9. Possible mass in IVC/RA Junction, consider CT. 10. There is no pericardial effusion. MUSICAL INSTRUMENT MECHANIC: Amita Terrazas RDCS
--- NOTE | 2021-05-13 12:41 | P.PN ---
Subjective Progress Note Date: 05/13/21 HISTORY OF PRESENT ILLNESS: This is a 55-year-old male with a past medical history of COPD, hypertension, and paroxysmal atrial fibrillation/flutter. Patient examined this morning at the bedside. Patient denies chest pain or pressure. He denies shortness of breath. He remains anticoagulated with Eliquis. Echocardiogram completed revealed ejection fraction 55%. Mild mitral regurgitation. Mild tricuspid regurgitation. Possible mass in the IVC/RA junction. PHYSICAL EXAM: VITAL SIGNS: Reviewed. GENERAL: Well-developed in no acute distress. NECK: Supple. No JVD or thyromegaly LUNGS: Respirations even and unlabored. Lungs diminished with scattered rhonchi. HEART: Regular rate and rhythm. S1 and S2 heard. Systolic murmur. EXTREMITIES: Normal range of motion. No clubbing or cyanosis. Peripheral pulses intact. No lower extremity edema ASSESSMENT: Acute exacerbation of COPD, on home o2 Right atrial tachycardia History of atrial fibrillation/flutter Hypertension Alpha 1 antitrypsin deficiency Nicotine dependence, in remission PLAN: Continue current cardiac medications Pulmonary following Obtain CTA secondary to abnormal echo Further recommendations pending patient course Nurse practitioner note has been reviewed by physician. Signing provider agrees with the documented findings, assessment, and plan of care. Objective - Vital Signs Vital signs: Vital Signs Temp 98 F 05/13/21 08:00 Pulse 84 05/13/21 08:00 Resp 20 05/13/21 08:00 BP 128/71 05/13/21 08:00 Pulse Ox 97 05/13/21 08:00 Intake & Output 05/12/21 05/13/21 05/13/21 18:59 06:59 18:59 Output Total 1225 Balance -1225 Weight 66.678 kg Output: Urine 1225 Other: Voiding Method Urinal - Labs CBC & Chem 7: 05/12/21 05:30 05/12/21 05:30 Labs: Microbiology - Last 24 Hours (Table) 05/11/21 22:03 Blood Culture - Preliminary Blood No Growth after 24 hours 05/11/21 22:18 Blood Culture - Preliminary Blood No Growth after 24 hours
[2021-05-13] MEDS ORDERED: SODIUM CHLORIDE 0.9% 1,000 ML IV SCH (13:30)
--- NOTE | 2021-05-13 15:44 | CT ---
EXAMINATION TYPE: CT angio chest DATE OF EXAM: 05/13/2021 COMPARISON: 01/06/2021, radiograph 05/12/2021 HISTORY: 55-year-old male possible mass at right atrium/IVC junction TECHNIQUE: Contiguous axial scanning of the performed with IV Contrast, patient injected with 100 mL of Isovue 300. Delayed images through the kidneys were obtained. Coronal/sagittal reconstructions per formed. CT DLP: 307 mGycm Automated exposure control for dose reduction was used. FINDINGS: Heart normal size without pericardial effusion. Redemonstrated areas of pericardial calcification wit hout any evidence of restriction. No flattening of the interventricular septum or reflux of contrast into the hepatic veins. Aorta normal caliber with conventional arch vessel branching anatomy. Prominent mediastinal lymph nodes, enlarged up to 1.4 cm in the precarinal region, unchanged from 4 m onths ago. Suspect a right hilar lymph node to be stable at 1.5 cm Satisfactory opacification of the pulmonary or pleural system without evidence for pulmonary embolus. Moderate centrilobular emphysema. Biapical pleural parenchymal scarring. Moderate diffuse bronchial w all thickening with multiple areas of reticular nodular interstitial opacity, endobronchial plugging, bronchiectasis, tree-in-bud opacities. Changes have worsened in the lower lungs and there is now fra nk consolidation of the posterior right base. Previous focal masslike consolidation posterior right h ilum has improved. Visualized upper abdomen shows no gross osseous. Bones: No osseous destructive process. IMPRESSION: 1. NO EVIDENCE FOR PULMONARY EMBOLUS. 2. COPD WITH MODERATE EMPHYSEMA. 3. REDEMONSTRATED WIDESPREAD BRONCHIECTASIS, AREAS OF ENDOBRONCHIAL PLUGGING, AND TREE-IN-BUD OPACITI ES. CONSIDER SEVERE CHRONIC ASTHMA, UNDERLYING MUCOCILIARY DYSFUNCTION, OR OTHER INFLAMMATORY PROCESS ES SUCH ABPA. THERE HAS BEEN PROGRESSION COMPARED TO 01/06/2021. FINDINGS SUGGEST SUPERIMPOSED ACUTE BRONCHIOLITIS. 4. IN ADDITION, THERE IS NEW SONYA CONSOLIDATION AT THE POSTERIOR RIGHT BASE HIGHLY SUGGESTIVE OF PNE UMONIA. 5. REDEMONSTRATED PERICARDIAL CALCIFICATIONS COMPATIBLE WITH PRIOR PERICARDITIS.
--- NOTE | 2021-05-13 16:12 | P.PN ---
Subjective Progress Note Date: 05/13/21 Principal diagnosis: Shortness of breath 55-year-old white male patient with history of severe COPD/emphysema, alpha-1 antitrypsin deficiency,, with baseline FEV1 of 19% of predicted and severe diffusion abnormality of 40% of predicted. Patient was recently hospitalized 10/27/2020 through 11/01/2020 and later on hospitalized between 11/23/2020 and 12/01/2020 for acute exacerbation of severe COPD. He is on nebulized DuoNeb, Trelegy Ellipta [phone] one puff inhalation daily. The patient also has a a a AVAPS machine at home but utilizes for chronic hypercapnic respiratory failure and recurrent COPD exacerbation. Patient is an ex-smoker, however has not smoked 1 year, prior to that smoked for 36 years pack a day, in addition had smoked marijuana. His other medical history hypertension, his blood pressure medication had to be by his primary care physician Dr. Juan C Gifford furthermore, worked up this patient for endobronchial valve insertion/lung volume reduction a nd as part of his workup, he underwent a high resolution computed tomography scan of the chest and this was consistent with COPD and he underwent a blood gas that showed significant CO2 retention with a pCO2 of 75 and a pH of 7.4 and a pO2 of 44 and this was on room air oxygen. Based on his underlying CO2 retention, he was essentially got disqualified for endobronchial valve insertion. I was coordinating all this work through this patient and [facility]. Based on all this, the skin is a case of advanced, and states COPD with recurrent hospitalization. The most recent hospitalization for this patient was an 03/27/2021 and the patient was discharged home on 03/31/2021. He is a nonsmoker. He presented back to the hospital because of worsening shortness of breath. He denied having any smoking history. He was taking prednisone 20 mg by mouth daily in addition to other maintenance stop the medications. I'm not absolutely sure the patient was still using his AV APS machine. The patient was placed on 6 L about 2 by nasal cannula to bring his saturation above 90%. White cell count was at 12.9. Sodium level was 123. Troponins 3 has been 0.01 and COVID-19 testing was negative. Chest x-ray showed hyperinflation and diffuse emphysema. EKG showed atrial flutter rhythm. No altered mentation. No pleurisy. No hemoptysis. No chest pain. She was given IV fluids. Sodium level improved from 123 at baseline is up to 1:30. Serum bicarb is above 40. Creatinine is at 0.4 with a BUN of 11. White cell count is at 7.39. On today's evaluation on 05/13/2021 patient is seen in follow-up on medical surgical floor. He is resting comfortably in bed, appears to be less dyspneic although he states his breathing is about the same, however not worsened since admission. Breathing comfortably, he is currently on 4 L of oxygen, his pulse ox is 97%, his been afebrile overnight, lung sounds are extremely diminished, without rhonchi or wheezing. Abiotic in the form of Rocephin and azithromycin in the emergency department for possibility of underlying pneumonia. Patient also continues on IV Cipro medical 60 mg every 6 hours, the emergency department he was in a flutter with 421 conduction, his heart rate is controlled, he is on Eliquis. His brought his AVAPS machine in today. Patient is on automatic settings, he is very compliant with that, he wears it every night at home. Today's labs have been reviewed, his white blood cell count is improved and is down to 7.39, hemoglobin is 13.5, his serum sodium is improving and is up to 1:30, potassium is 5.3, CO2 is greater than 40, and patient does have chronic hypoxic and hypercapnic respiratory failure, in addition he was given some diuretics in the emergency department, he is currently on 0.9 normal saline at a rate of 75 ML per hour. His 3 sets of cardiac troponins were negative. He tested negative for COVID-19. CT chest was ordered and showed no evidence of pulmonary embolism, he did not COPD with moderate emphysema, brought This is, areas of endobronchial plugging, and tree-in-bud opacities. There was also superimposed acute bronchiolitis, and there is josefina consolidation at the posterior right base highly suggestive of pneumonia. In the past patient had sputum cultures positive for pseudomonas Objective - Vital Signs Vital signs: Vital Signs Temp 97.9 F 05/13/21 14:00 Pulse 69 05/13/21 14:00 Resp 18 05/13/21 14:00 BP 116/76 05/13/21 14:00 Pulse Ox 94 L 05/13/21 14:00 Intake & Output 05/12/21 05/13/21 05/13/21 18:59 06:59 18:59 Output Total 1225 Balance -1225 Weight 66.678 kg Output: Urine 1225 Other: Voiding Method Urinal - Exam GENERAL EXAM: Alert, very pleasant, 55-year-old white male, on 4-5 L, with a pulse ox of 95%, comfortable in no apparent distress. HEAD: Normocephalic/atraumatic. EYES: Normal reaction of pupils, equal size. Conjunctiva pink, sclera white. NOSE: Clear with pink turbinates. THROAT: No erythema or exudates. NECK: No masses, no JVD, no thyroid enlargement, no adenopathy. CHEST: No chest wall deformity. Symmetrical expansion. LUNGS: Equal air entry with diminished breath sounds bilaterally, and minimal crackles at the right base CVS: Regular rate and rhythm, normal S1 and S2, no gallops, no murmurs, no rubs ABDOMEN: Soft, nontender. No hepatosplenomegaly, normal bowel sounds, no guarding or rigidity. EXTREMITIES: No clubbing, no edema, no cyanosis, 2+ pulses and upper and lower extremities. MUSCULOSKELETAL: Muscle strength and tone normal. SPINE: No scoliosis or deformity SKIN: No rashes CENTRAL NERVOUS SYSTEM: Alert and oriented -3. No focal deficits, tone is norm al in all 4 extremities. PSYCHIATRIC: Alert and oriented -3. Appropriate affect. Intact judgment and insight. - Labs CBC & Chem 7: 05/12/21 05:30 05/12/21 05:30 Labs: Microbiology - Last 24 Hours (Table) 05/11/21 22:03 Blood Culture - Preliminary Blood No Growth after 24 hours 05/11/21 22:18 Blood Culture - Preliminary Blood No Growth after 24 hours Assessment and Plan Plan: #1. Acute on chronic hypoxic and hypercapnic respiratory failure related to acute exacerbation of COPD and right lower lobe pneumonia . COVID 19 was negative. Patient has advanced lung disease. The patient has had recurrent COPD exacerbations. His current chest x-ray showing some increased interstitial markings bilaterally. The patient has had recurrent hospitalization the patient has been hospitalized almost every 2 months for ongoing COPD related complications. For now, denies any signs of an infection. He has limited on Trelegy Ellipta one inhalation a day, prednisone 20 mg by mouth daily and albuterol neb regimen sound the clock. He also has a a AVAPS machine at home which probably is not using on a regular basis. He is a nonsmoker. His baseline FEV1 is noted of 19% of predicted. Extremely poor baseline performance and functional status. Also looks cachectic and malnourished. #2. Severe COPD, baseline FEV1 of 19% of predicted, stage IV COPD, on home oxygen at 4 L . The patient is a chronic CO2 retainer. He was not found to be a candidate for endobronchial [place] valve insertion because of chronic hypercapnic respiratory failure. #3. Alpha-1 anti-trypsin efficiency #4. 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 Hypertension #6. PAF/flutter current rhythm is sinus and the patient is on long-term anticoagulation with Eliquis.. The patient was in a flutter at the time of admission was 4:1 conduction block and heart rate is improved right now and is under better control. 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 His current heart rate is in the mid 80s. #7. borderline concentric LVH/hypertensive heart disease with a preserved LV function and ejection fraction of 6065%, mild pulmonary hypertension #8. previous sputum colonization/infection with pseudomonas aeruginosa based on the sputum analysis that was done on 11/24/2020 and 03/02/2021. Plan: We'll switch antibiotic coverage to cefepime and Levaquin Continue IV steroids Continue nebulized bronchodilators Continue oral anticoagulation Continue AVAPs support at bedtime and as needed Patient is feeling better today, vital signs are stable We'll continue to follow I performed a history & physical examination of the patient and discussed their management with my nurse practitioner, Elida Cardoso. I reviewed the nurse practitioner's note and agree with the documented findings and plan of care. Lung sounds are positive for crackles at the right base throughout the lung miles. The findings and the impression was discussed with the patient. I attest to the documentation by the nurse practitioner. Time with Patient: Less than 30
[2021-05-13] MEDS: LEVOFLOXACIN 500MG-D5W PMX 500 MG in DEXTROSE/WATER 1 100ML.BAG IVPB SCH (17:01)
--- NOTE | 2021-05-13 20:55 | P.PN ---
Subjective This is a pleasant 55 years old male with past medical history of hypertension, COPD secondary to alpha-1 antitrypsin deficiency, pancreatitis and atrial fibrillation on Eliquis. His metal cleaner is Dr. Gaytan Presents because of one-day of dyspnea cough and green phlegm for the last couple days with no chest pain No GI or urinary symptoms. He denies smoking, alcohol or illicit drugs He's on 4 L oxygen via nasal cannula at home and 20 mg of prednisone daily. He is currently saturating 90-97% on 6 L oxygen via nasal cannula, and afebrile and dressed vitals are stable Labs showing mild leukocytosis of 12.9 K, sodium 123, his sodium went baseline is ranging 126-135 potassium 6.0, creatinine 0.18. Troponin are negative 3 at 0.018, less than 0.012 and less than 0.012. And coronavirus not detected. Chest x-ray showing increased mild opacity may represent atelectasis or infiltrate, chronic micronodular T EKG showing atrial flutter with a 421 A-V block conduction and a rate of 82, QTC 411 Chest x-ray showed increased mild opacity may represent atelectasis or infiltrate In the emergency room he was started on ceftriaxone and Zithromax, Solu-Medrol 40 mg and her symptom IV fluids On admission pulmonary team were consulted 05/13/21 Patient oxygen requirement now at 4 L/m which is his baseline at home however is still tachypneic. He looks lethargic and withdrawn in bed mostly related to his dyspnea. No significant chest pain or coughing. Other vitals are stable. Labs improvement with WBC back to normal. Sodium improved to 1:30 Today he has CTA of the chest was showing no PE, moderate emphysema with advanced COPD and widespread bronchiectasis with acute bronchitis and right basal pneumonia. Echocardiogram was suspicious for a mass in the IVC next to our a however this was not mentioned in the CTA, besides power sweeper operator on the case Pulmonary consult following patient closely TobraDex was his wish to cefepime and Levaquin for hospital-acquired pneumonia. He is also on Solu-Medrol 60 mg on home dose of Polycose Objective - Vital Signs Vital signs: Vital Signs Temp 98 F 05/13/21 08:00 Pulse 84 05/13/21 08:00 Resp 20 05/13/21 08:00 BP 128/71 05/13/21 08:00 Pulse Ox 97 05/13/21 08:00 Intake & Output 05/12/21 05/13/21 05/13/21 18:59 06:59 18:59 Output Total 1225 Balance -1225 Weight 66.678 kg Output: Urine 1225 Other: Voiding Method Urinal - Exam GENERAL: The patient is alert and oriented x3, not in any acute distress. Well developed, well nourished. HEENT: Pupils are round and equally reacting to light. EOMI. No scleral icterus. No conjunctival pallor. Normocephalic, atraumatic. No pharyngeal erythema. No thyromegaly. CARDIOVASCULAR: S1 and S2 present. No murmurs, rubs, or gallops. -PULMONARY: Chest is clear to auscultation, tachypnea with decreased air entry on both sides. No significant wheezing. No crepitation ABDOMEN: Soft, nontender, nondistended, normoactive bowel sounds. No palpable organomegaly. MUSCULOSKELETAL: No joint swelling or deformity. EXTREMITIES: No cyanosis, clubbing, or pedal edema. NEUROLOGICAL: Gross neurological examination did not reveal any focal deficits. SKIN: No rashes. no petechiae. - Labs CBC & Chem 7: 05/12/21 05:30 05/12/21 05:30 Labs: Microbiology - Last 24 Hours (Table) 05/11/21 22:03 Blood Culture - Preliminary Blood No Growth after 24 hours 05/11/21 22:18 Blood Culture - Preliminary Blood No Growth after 24 hours Assessment and Plan Assessment: Acute COPD exacerbation, advance to stage with FEV1 of 19%, and widespread bronchiectasis with acute bronchitis and moderate emphysema. Right lower lobe pneumonia Atrial flutter with 4:1 A-V conduction History of alpha-1 antitrypsin deficiency Hypertension Chronic hyponatremia Chronic atrial fibrillation on Eliquis and raped is controlled. Currently is on a flutter with 4:1 A-V conduction History of pancreatitis Plan: This is a pleasant 55 years old male who presents with acute COPD exacerbation, And atrial flutter With steroids, bronchodilators, oxygen. And continue with antibiotic which are changed to cefepime and Levaquin Follow-up with pulmonary consult cardiology consult Labs and medication were reviewed.. Continue same treatment. Continue with symptomatic treatment. Resume home medication. Monitor lytes and vitals. DVT and GI prophylaxis. Further recommendations depends on the clinical course of the patient DVT prophylaxis:Eliquis GI Prophylaxis: Pepcid Prognosis is guarded
[2021-05-13] MEDS ORDERED: CEFEPIME 1 GM in SODIUM CHLORIDE 0.9% 50 ML IVPB ONE (21:00)
[2021-05-13] MEDS: MIRTAZAPINE 15 MG TAB PO SCH (23:25)
[2021-05-13] MEDS: ALPRAZolam 0.5 MG TAB PO PRN (23:28)
[2021-05-14] MEDS: methylPREDNISolone SOD SUCCI 125 MG/2 ML VIAL IV SCH ×4 (06:22→23:51)
[2021-05-14] MEDS: VILANTER INHALATION SCH (08:14)
[2021-05-14] MEDS: UMECLIDIN BL INHALATION SCH (08:14)
[2021-05-14] MEDS: FLUTICASONE INHALATION SCH (08:14)
[2021-05-14] MEDS: FAMOTIDINE 20 MG TAB PO SCH (08:31)
[2021-05-14] MEDS: DILTIAZEM CD 240 MG CAP.ER.24H PO SCH (08:31)
[2021-05-14] MEDS: SERTRALINE 50 MG TAB PO SCH (08:31)
[2021-05-14] MEDS: LORATADINE 10 MG TAB PO SCH (08:32)
[2021-05-14] MEDS: APIXABAN 5 MG TAB PO SCH ×2 (08:32→21:22)
[2021-05-14] MEDS: ALBUTEROL NEBULIZED 2.5 MG/3 ML INHALATION SCH ×4 (08:42→20:11)
[2021-05-14] MEDS: ALPRAZolam 0.5 MG TAB PO PRN ×2 (08:43→21:28)
[2021-05-14] MEDS ORDERED: CEFEPIME 2 GM in SODIUM CHLORIDE 0.9% 50 ML IVPB SCH (09:00)
[2021-05-14] MEDS ORDERED: CEFEPIME 2 GM in SODIUM CHLORIDE 0.9% 100 ML IVPB SCH (09:00)
[2021-05-14] MEDS ORDERED: CEFEPIME 1 GM in SODIUM CHLORIDE 0.9% 50 ML IVPB SCH (09:00)
[2021-05-14 11:41] LABS: Basophils # (A) 0.01 X 10*3/uL (0.00-0.10); Basophils % (A) 0.1 %; Eosinophils # (A) 0 X 10*3/uL (0.04-0.35); Eosinophils % (A) 0 %; HCT 44.5 % (39.6-50.0); Lymphocytes # (A) 0.41 X 10*3/uL (0.90-5.00); Lymphocytes % (A) 3.7 %; MCH 28.6 pg (27.0-32.0); MCHC 29.2 g/dL (32.0-37.0); MCV 97.8 fL (80.0-97.0); Mean Platelet Volume 9.2 fL (9.5-12.2); Monocytes # (A) 0.73 X 10*3/uL (0.20-1.00); Monocytes % (A) 6.6 %; Neutrophils # (A) 9.84 X 10*3/uL (1.80-7.70); Neutrophils % (A) 89.1 %; Platelet Count 318 X 10*3/uL (140-440); RBC 4.55 X 10*6/uL (4.40-5.60); RDW 14.2 % (11.5-14.5); WBC 11.04 X 10*3/uL (4.50-10.00)
[2021-05-14 12:23] LABS: African American GFR (CKD) 174.4 (60.0-200.0); Carbon Dioxide >40.0 mmol/L (21.6-31.8); Chloride 86 mmol/L (96-109); Glucose 163 mg/dL (70-110); Potassium 4.8 mmol/L (3.5-5.5); Sodium 135 mmol/L (135-145)
--- NOTE | 2021-05-14 12:30 | P.PN ---
Subjective This is a pleasant 55 years old male with past medical history of hypertension, COPD secondary to alpha-1 antitrypsin deficiency, pancreatitis and atrial fibrillation on Eliquis. His carry out clerk is Dr. Gaytan Presents because of one-day of dyspnea cough and green phlegm for the last couple days with no chest pain No GI or urinary symptoms. He denies smoking, alcohol or illicit drugs He's on 4 L oxygen via nasal cannula at home and 20 mg of prednisone daily. He is currently saturating 90-97% on 6 L oxygen via nasal cannula, and afebrile and dressed vitals are stable Labs showing mild leukocytosis of 12.9 K, sodium 123, his sodium went baseline is ranging 126-135 potassium 6.0, creatinine 0.18. Troponin are negative 3 at 0.018, less than 0.012 and less than 0.012. And coronavirus not detected. Chest x-ray showing increased mild opacity may represent atelectasis or infiltrate, chronic micronodular T EKG showing atrial flutter with a 421 A-V block conduction and a rate of 82, QTC 411 Chest x-ray showed increased mild opacity may represent atelectasis or infiltrate In the emergency room he was started on ceftriaxone and Zithromax, Solu-Medrol 40 mg and her symptom IV fluids On admission pulmonary team were consulted 05/13/21 Patient oxygen requirement now at 4 L/m which is his baseline at home however is still tachypneic. He looks lethargic and withdrawn in bed mostly related to his dyspnea. No significant chest pain or coughing. Other vitals are stable. Labs improvement with WBC back to normal. Sodium improved to 1:30 Today he has CTA of the chest was showing no PE, moderate emphysema with advanced COPD and widespread bronchiectasis with acute bronchitis and right basal pneumonia. Echocardiogram was suspicious for a mass in the IVC next to our a however this was not mentioned in the CTA, besides lap runner on the case Pulmonary consult following patient closely TobraDex was his wish to cefepime and Levaquin for hospital-acquired pneumonia. He is also on Solu-Medrol 60 mg on home dose of Polycose 05/14/2021 He is significantly less tachypneic compared to yesterday. He is at baseline of 4 L/m of oxygen similar to yesterday. He is using his breathing machine overnight. Other than that he is hemodynamically stable, labs showing mild leukocytosis while he is on steroids. Yesterday he was started on cefepime and Levaquin, secondary to right lower lobe pneumonia suspected on CT of the chest. howevercalcitonin came back negative today at 0.06. So lower the dose of cefepime to 1 g twice a day. Is on Solu- Medrol 60 mg as well as home dose of Eliquis. For his A. fib Objective - Vital Signs Vital signs: Vital Signs Temp 97.4 F L 05/14/21 08:03 Pulse 86 05/14/21 08:58 Resp 17 05/14/21 08:03 BP 140/93 05/14/21 08:03 Pulse Ox 96 05/14/21 03:17 Intake & Output 05/13/21 05/14/21 05/14/21 18:59 06:59 18:59 Output Total 600 700 Balance -600 -700 Output: Urine 600 700 Other: Voiding Method Urinal # Voids 5 # Bowel Movements 1 - Exam GENERAL: The patient is alert and oriented x3, not in any acute distress. Well developed, well nourished. HEENT: Pupils are round and equally reacting to light. EOMI. No scleral icterus. No conjunctival pallor. Normocephalic, atraumatic. No pharyngeal erythema. No thyromegaly. CARDIOVASCULAR: S1 and S2 present. No murmurs, rubs, or gallops. -PULMONARY: Chest is clear to auscultation, tachypnea with decreased air entry on both sides. No significant wheezing. No crepitation ABDOMEN: Soft, nontender, nondistended, normoactive bowel sounds. No palpable organomegaly. MUSCULOSKELETAL: No joint swelling or deformity. EXTREMITIES: No cyanosis, clubbing, or pedal edema. NEUROLOGICAL: Gross neurological examination did not reveal any focal deficits. SKIN: No rashes. no petechiae. - Labs CBC & Chem 7: 05/14/21 07:28 05/14/21 07:28 Labs: Abnormal Lab Results - Last 24 Hours (Table) 05/14/21 05/14/21 Range/Units 07:28 07:28 WBC 11.04 H (4.50-10.00) X 10*3/uL MCV 97.8 H (80.0-97.0) fL MCHC 29.2 L (32.0-37.0) g/dL MPV 9.2 L (9.5-12.2) fL Immature Gran # 0.05 H (0.00-0.04) X 10*3/uL Neutrophils # 9.84 H (1.80-7.70) X 10*3/uL Lymphocytes # 0.41 L (0.90-5.00) X 10*3/uL Eosinophils # 0 L (0.04-0.35) X 10*3/uL Chloride 86 L (96-109) mmol/L Carbon Dioxide >40.0 H* (21.6-31.8) mmol/L Creatinine 0.3 L (0.6-1.5) mg/dL BUN/Creatinine Ratio 40.00 H (12.00-20.00) Ratio Glucose 163 H (70-110) mg/dL Microbiology - Last 24 Hours (Table) 05/11/21 22:18 Blood Culture - Preliminary Blood No Growth after 48 hours 05/11/21 22:03 Blood Culture - Preliminary Blood No Growth after 48 hours Assessment and Plan Assessment: Acute COPD exacerbation, advance to stage with FEV1 of 19%, and widespread bronchiectasis with acute bronchitis and moderate emphysema. Right lower lobe pneumonia Atrial flutter with 4:1 A-V conduction History of alpha-1 antitrypsin deficiency Hypertension Chronic hyponatremia Chronic atrial fibrillation on Eliquis and raped is controlled. Currently is on a flutter with 4:1 A-V conduction History of pancreatitis Plan: This is a pleasant 55 years old male who presents with acute COPD exacerbation, And atrial flutter With steroids, bronchodilators, oxygen. And continue with antibiotic which are changed to cefepime and Levaquin Follow-up with pulmonary consult cardiology consult Labs and medication were reviewed.. Continue same treatment. Continue with symptomatic treatment. Resume home medication. Monitor lytes and vitals. DVT and GI prophylaxis. Further recommendations depends on the clinical course of the patient DVT prophylaxis:Eliquis GI Prophylaxis: Pepcid Prognosis is guarded
--- NOTE | 2021-05-14 12:59 | P.PN ---
Subjective Progress Note Date: 05/14/21 Principal diagnosis: Shortness of breath 55-year-old white male patient with history of severe COPD/emphysema, alpha-1 antitrypsin deficiency,, with baseline FEV1 of 19% of predicted and severe diffusion abnormality of 40% of predicted. Patient was recently hospitalized 10/27/2020 through 11/01/2020 and later on hospitalized between 11/23/2020 and 12/01/2020 for acute exacerbation of severe COPD. He is on nebulized DuoNeb, Trelegy Ellipta [id number] one puff inhalation daily. The patient also has a a a AVAPS machine at home but utilizes for chronic hypercapnic respiratory failure and recurrent COPD exacerbation. Patient is an ex-smoker, however has not smoked 1 year, prior to that smoked for 36 years pack a day, in addition had smoked marijuana. His other medical history hypertension, his blood pressure medication had to be by his primary care physician Dr. Juan C Gifford furthermore, worked up this patient for endobronchial valve insertion/lung volume reduction a nd as part of his workup, he underwent a high resolution computed tomography scan of the chest and this was consistent with COPD and he underwent a blood gas that showed significant CO2 retention with a pCO2 of 75 and a pH of 7.4 and a pO2 of 44 and this was on room air oxygen. Based on his underlying CO2 retention, he was essentially got disqualified for endobronchial valve insertion. I was coordinating all this work through this patient and [facility]. Based on all this, the skin is a case of advanced, and states COPD with recurrent hospitalization. The most recent hospitalization for this patient was an 03/27/2021 and the patient was discharged home on 03/31/2021. He is a nonsmoker. He presented back to the hospital because of worsening shortness of breath. He denied having any smoking history. He was taking prednisone 20 mg by mouth daily in addition to other maintenance stop the medications. I'm not absolutely sure the patient was still using his AV APS machine. The patient was placed on 6 L about 2 by nasal cannula to bring his saturation above 90%. White cell count was at 12.9. Sodium level was 123. Troponins 3 has been 0.01 and COVID-19 testing was negative. Chest x-ray showed hyperinflation and diffuse emphysema. EKG showed atrial flutter rhythm. No altered mentation. No pleurisy. No hemoptysis. No chest pain. She was given IV fluids. Sodium level improved from 123 at baseline is up to 1:30. Serum bicarb is above 40. Creatinine is at 0.4 with a BUN of 11. White cell count is at 7.39. On today's evaluation on 05/13/2021 patient is seen in follow-up on medical surgical floor. He is resting comfortably in bed, appears to be less dyspneic although he states his breathing is about the same, however not worsened since admission. Breathing comfortably, he is currently on 4 L of oxygen, his pulse ox is 97%, his been afebrile overnight, lung sounds are extremely diminished, without rhonchi or wheezing. Abiotic in the form of Rocephin and azithromycin in the emergency department for possibility of underlying pneumonia. Patient also continues on IV Cipro medical 60 mg every 6 hours, the emergency department he was in a flutter with 421 conduction, his heart rate is controlled, he is on Eliquis. His brought his AVAPS machine in today. Patient is on automatic settings, he is very compliant with that, he wears it every night at home. Today's labs have been reviewed, his white blood cell count is improved and is down to 7.39, hemoglobin is 13.5, his serum sodium is improving and is up to 1:30, potassium is 5.3, CO2 is greater than 40, and patient does have chronic hypoxic and hypercapnic respiratory failure, in addition he was given some diuretics in the emergency department, he is currently on 0.9 normal saline at a rate of 75 ML per hour. His 3 sets of cardiac troponins were negative. He tested negative for COVID-19. CT chest was ordered and showed no evidence of pulmonary embolism, he did not COPD with moderate emphysema, brought This is, areas of endobronchial plugging, and tree-in-bud opacities. There was also superimposed acute bronchiolitis, and there is josefina consolidation at the posterior right base highly suggestive of pneumonia. In the past patient had sputum cultures positive for pseudomonas At today's evaluation 05/10/2021 patient seen in follow-up on medical surgical floor. He is resting comfortably in bed, currently on 4 L of oxygen, his pulse ox is 96%, afebrile, he did wear his AVAPS machine last night. The patient has Had no acute events overnight, he remains on high-dose IV steroids 60 mg every 6 hours, we switched his antibiotic coverage to Levaquin and cefepime yesterday, he is on nebulized bronchodilators. No hemoptysis, no chest discomfort, lung sounds are extremely diminished, patient is very short of breath with any exertion however this is chronic for him. His white count today is 11.04, hemoglobin is 13, sodium is 135, potassium is 4.8, chloride is 86, CO2 is greater than 40, B1 is 12, creatinine is 0.3. Pro-calcitonin level was 0.06 Objective - Vital Signs Vital signs: Vital Signs Temp 97.4 F L 05/14/21 08:03 Pulse 84 05/14/21 12:53 Resp 18 05/14/21 12:53 BP 140/93 05/14/21 08:03 Pulse Ox 96 05/14/21 03:17 Intake & Output 05/13/21 05/14/21 05/14/21 18:59 06:59 18:59 Output Total 600 700 Balance -600 -700 Output: Urine 600 700 Other: Voiding Method Urinal # Voids 5 # Bowel Movements 1 - Exam GENERAL EXAM: Alert, very pleasant, 55-year-old white male, on 4-5 L, with a pulse ox of 95%, comfortable in no apparent distress. HEAD: Normocephalic/atraumatic. EYES: Normal reaction of pupils, equal size. Conjunctiva pink, sclera white. NOSE: Clear with pink turbinates. THROAT: No erythema or exudates. NECK: No masses, no JVD, no thyroid enlargement, no adenopathy. CHEST: No chest wall deformity. Symmetrical expansion. LUNGS: Equal air entry with diminished breath sounds bilaterally, and minimal crackles at the right base CVS: Regular rate and rhythm, normal S1 and S2, no gallops, no murmurs, no rubs ABDOMEN: Soft, nontender. No hepatosplenomegaly, normal bowel sounds, no guarding or rigidity. EXTREMITIES: No clubbing, no edema, no cyanosis, 2+ pulses and upper and lower extremities. MUSCULOSKELETAL: Muscle strength and tone normal. SPINE: No scoliosis or deformity SKIN: No rashes CENTRAL NERVOUS SYSTEM: Alert and oriented -3. No focal deficits, tone is normal in all 4 extremities. PSYCHIATRIC: Alert and oriented -3. Appropriate affect. Intact judgment and insight. - Labs CBC & Chem 7: 05/14/21 07:28 05/14/21 07:28 Labs: Abnormal Lab Results - Last 24 Hours (Table) 05/14/21 05/14/21 Range/Units 07:28 07:28 WBC 11.04 H (4.50-10.00) X 10*3/uL MCV 97.8 H (80.0-97.0) fL MCHC 29.2 L (32.0-37.0) g/dL MPV 9.2 L (9.5-12.2) fL Immature Gran # 0.05 H (0.00-0.04) X 10*3/uL Neutrophils # 9.84 H (1.80-7.70) X 10*3/uL Lymphocytes # 0.41 L (0.90-5.00) X 10*3/uL Eosinophils # 0 L (0.04-0.35) X 10*3/uL Chloride 86 L (96-109) mmol/L Carbon Dioxide >40.0 H* (21.6-31.8) mmol/L Creatinine 0.3 L (0.6-1.5) mg/dL BUN/Creatinine Ratio 40.00 H (12.00-20.00) Ratio Glucose 163 H (70-110) mg/dL Microbiology - Last 24 Hours (Table) 05/11/21 22:18 Blood Culture - Preliminary Blood No Growth after 48 hours 05/11/21 22:03 Blood Culture - Preliminary Blood No Growth after 48 hours Assessment and Plan Plan: #1. Acute on chronic hypoxic and hypercapnic respiratory failure related to acute exacerbation of COPD and right lower lobe pneumonia . COVID 19 was negative. Patient has advanced lung disease. The patient has had recurrent COPD exacerbations. His current chest x-ray showing some increased interstitial markings bilaterally. The patient has had recurrent hospitalization the patient has been hospitalized almost every 2 months for ongoing COPD related complications. For now, denies any signs of an infection. He has limited on Trelegy Ellipta one inhalation a day, prednisone 20 mg by mouth daily and albuterol neb regimen sound the clock. He also has a a AVAPS machine at home which probably is not using on a regular basis. He is a nonsmoker. His baseline FEV1 is noted of 19% of predicted. Extremely poor baseline performance and functional status. Also looks cachectic and malnourished. #2. Severe COPD, baseline FEV1 of 19% of predicted, stage IV COPD, on home oxygen at 4 L . The patient is a chronic CO2 retainer. He was not found to be a candidate for endobronchial [place] valve insertion because of chronic hypercapnic respiratory failure. #3. Alpha-1 anti-trypsin efficiency #4. 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 Hypertension #6. PAF/flutter current rhythm is sinus and the patient is on long-term anticoagulation with Eliquis.. The patient was in a flutter at the time of admission was 4:1 conduction block and heart rate is improved right now and is under better control. 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 His current heart rate is in the mid 80s. #7. borderline concentric LVH/hypertensive heart disease with a preserved LV function and ejection fraction of 6065%, mild pulmonary hypertension #8. previous sputum colonization/infection with pseudomonas aeruginosa based on the sputum analysis that was done on 11/24/2020 and 03/02/2021. Plan: Continue Levaquin and cefepime Continue IV steroids Continue nebulized bronchodilators Continue oral anticoagulation Continue AVAPs support at bedtime and as needed Vital signs are stable We'll continue to follow I performed a history & physical examination of the patient and discussed their management with my nurse practitioner, Elida Cardoso. I reviewed the nurse practitioner's note and agree with the documented findings and plan of care. Lung sounds are positive for crackles at the right base throughout the lung miles. The findings and the impression was discussed with the patient. I attest to the documentation by the nurse practitioner. Time with Patient: Less than 30
--- NOTE | 2021-05-14 13:59 | P.PN ---
Subjective Progress Note Date: 05/14/21 This is a 55-year-old male with a past medical history of COPD, hypertension, and paroxysmal atrial fibrillation/flutter. He follows in the office with Dr. Lebron. Patient denies chest pain or pressure. He denies shortness of breath. He remains anticoagulated with Eliquis. The strips are reviewed. Patient had one episode of paroxysmal atrial flutter this morning with heart rate in the 12 0s but is otherwise been maintaining sinus mechanism over the last 24 hours. Echocardiogram completed revealed ejection fraction 55%. Mild mitral regurgitation. Mild tricuspid regurgitation. Possible mass in the IVC/RA junction. HEENT of the chest done yesterday show no evidence for pulmonary e mbolus, COPD with moderate emphysema, we demonstrated widespread bronchiectasis, areas of endobronchial plugging, and treating him blood opacities, consider severe chronic asthma, underlying mucociliary dysfunction, or other inflammatory processes such as a BPA findings suggest superimposed acute bronchiolitis. In addition, there is a new josefina consolidation in the posterior right base highly suggestive of pneumonia and redemonstrated pericardial calcifications compatible with prior pericarditis. Objective - Vital Signs Vital signs: Vital Signs Temp 97.4 F L 05/14/21 08:03 Pulse 88 05/14/21 13:03 Resp 18 05/14/21 13:03 BP 140/93 05/14/21 08:03 Pulse Ox 96 05/14/21 03:17 Intake & Output 05/13/21 05/14/21 05/14/21 18:59 06:59 18:59 Output Total 600 700 Balance -600 -700 Output: Urine 600 700 Other: Voiding Method Urinal # Voids 5 # Bowel Movements 1 - Exam PHYSICAL EXAMINATION: HEENT: Head is atraumatic, normocephalic. Pupils equal, round. Neck is supple. There is no elevated jugular venous pressure. HEART EXAMINATION: Heart sounds regular, S1 and S2 with a systolic murmur. CHEST EXAMINATION: Lungs reveal significantly diminished air entry bilaterally. No chest wall tenderness is noted on palpation or with deep breathing. ABDOMEN: Soft, nontender. Bowel sounds are heard. No organomegaly noted. EXTREMITIES: 2+ peripheral pulses with evidence of 1+ peripheral edema and no calf tenderness noted. NEUROLOGIC patient is awake, alert and oriented x3. . - Labs CBC & Chem 7: 05/14/21 07:28 05/14/21 07:28 Labs: Abnormal Lab Results - Last 24 Hours (Table) 05/14/21 05/14/21 Range/Units 07:28 07:28 WBC 11.04 H (4.50-10.00) X 10*3/uL MCV 97.8 H (80.0-97.0) fL MCHC 29.2 L (32.0-37.0) g/dL MPV 9.2 L (9.5-12.2) fL Immature Gran # 0.05 H (0.00-0.04) X 10*3/uL Neutrophils # 9.84 H (1.80-7.70) X 10*3/uL Lymphocytes # 0.41 L (0.90-5.00) X 10*3/uL Eosinophils # 0 L (0.04-0.35) X 10*3/uL Chloride 86 L (96-109) mmol/L Carbon Dioxide >40.0 H* (21.6-31.8) mmol/L Creatinine 0.3 L (0.6-1.5) mg/dL BUN/Creatinine Ratio 40.00 H (12.00-20.00) Ratio Glucose 163 H (70-110) mg/dL Microbiology - Last 24 Hours (Table) 05/11/21 22:18 Blood Culture - Preliminary Blood No Growth after 48 hours 05/11/21 22:03 Blood Culture - Preliminary Blood No Growth after 48 hours Assessment and Plan Assessment: Acute exacerbation of COPD, on home o2 Paroxysmal atrial tachycardia/atrial flutter Hypertension Alpha 1 antitrypsin deficiency Nicotine dependence, in remission Plan: From cardiology's perspective medications were reviewed and we will continue the same. At this time we will follow the patient on an as-needed basis. Please do not hesitate to contact us with questions. TRANSPLANT NURSE note has been reviewed, I agree with a documented findings and plan of care. Patient was seen and examined.
[2021-05-14] MEDS: LEVOFLOXACIN 500MG-D5W PMX 500 MG in DEXTROSE/WATER 1 100ML.BAG IVPB SCH (14:59)
[2021-05-14 15:42] LABS: Non-African American GFR(CKD) 150.5 (60.0-200.0)
[2021-05-14] MEDS: MIRTAZAPINE 15 MG TAB PO SCH (21:22)
[2021-05-14] MEDS: CEFEPIME 1 GM in SODIUM CHLORIDE 0.9% 50 ML IVPB SCH (21:22)
[2021-05-15] MEDS: methylPREDNISolone SOD SUCCI 125 MG/2 ML VIAL IV SCH ×4 (05:51→23:14)
[2021-05-15] MEDS: ALBUTEROL NEBULIZED 2.5 MG/3 ML INHALATION SCH ×4 (07:21→20:20)
[2021-05-15] MEDS: UMECLIDIN BL INHALATION SCH (07:31)
[2021-05-15] MEDS: VILANTER INHALATION SCH (07:31)
[2021-05-15] MEDS: FLUTICASONE INHALATION SCH (07:31)
[2021-05-15 08:52] LABS: Glucose,Whole Blood 187 mg/dL (75-99)
[2021-05-15] MEDS: LORATADINE 10 MG TAB PO SCH (09:06)
[2021-05-15] MEDS: FAMOTIDINE 20 MG TAB PO SCH (09:07)
[2021-05-15 09:17] LABS: Basophils % (A) 0 %; Eosinophils # (A) 0.1 k/uL (0-0.7); Eosinophils % (A) 1 %; HCT 45.3 % (39.0-53.0); HGB 14.1 gm/dL (13.0-17.5); Hypochromasia Moderate; Lymphocytes # (A) 0.4 k/uL (1.0-4.8); Lymphocytes % (A) 3 %; MCH 30.5 pg (25.0-35.0); MCHC 31.2 g/dL (31.0-37.0); MCV 97.7 fL (80.0-100.0); Mean Platelet Volume 6.4; Monocytes # (A) 0.4 k/uL (0-1.0); Monocytes % (A) 3 %; Neutrophils % (A) 92 %; Platelet Count 314 k/uL (150-450); RBC 4.64 m/uL (4.30-5.90); RDW 13.9 % (11.5-15.5); WBC 10.9 k/uL (3.8-10.6)
[2021-05-15 09:23] LABS: ABG Base Excess 27.3 mmol/L; ABG Oxygen Saturation 89.1 % (94-97); ABG PH 7.33 (7.35-7.45); ABG TCO2 56 mmol/L (19-24); Allen Test Performed? Yes
[2021-05-15 09:24] LABS: ABG HCO3 53 mmol/L (21-25); ABG PCO2 100 mmHg (35-45); ABG PO2 56 mmHg (83-108)
[2021-05-15] MEDS: CEFEPIME 1 GM in SODIUM CHLORIDE 0.9% 50 ML IVPB SCH ×2 (09:27→20:53)
[2021-05-15 09:28] LABS: African American GFR (CKD) >90 (>60 ml/min/1.73 sqM); Blood Urea Nitrogen 17 mg/dL (9-20); Calcium 8.9 mg/dL (8.4-10.2); Chloride 84 mmol/L (98-107); Glucose 210 mg/dL (74-99); Non-African American GFR(CKD) >90 (>60 ml/min/1.73 sqM); Sodium 131 mmol/L (137-145)
[2021-05-15 09:34] LABS: Anion Gap 2 mmol/L
[2021-05-15 09:36] LABS: Carbon Dioxide 45 mmol/L (22-30)
[2021-05-15] MEDS: APIXABAN 5 MG TAB PO SCH (09:47)
[2021-05-15] MEDS: ENOXAPARIN 60 MG/0.6 ML SYRINGE SQ SCH ×2 (11:21→22:08)
--- NOTE | 2021-05-15 13:45 | P.PN ---
Subjective Progress Note Date: 05/15/21 Principal diagnosis: Shortness of breath 55-year-old white male patient with history of severe COPD/emphysema, alpha-1 antitrypsin deficiency,, with baseline FEV1 of 19% of predicted and severe diffusion abnormality of 40% of predicted. Patient was recently hospitalized 10/27/2020 through 11/01/2020 and later on hospitalized between 11/23/2020 and 12/01/2020 for acute exacerbation of severe COPD. He is on nebulized DuoNeb, Trelegy Ellipta [phone] one puff inhalation daily. The patient also has a a a AVAPS machine at home but utilizes for chronic hypercapnic respiratory failure and recurrent COPD exacerbation. Patient is an ex-smoker, however has not smoked 1 year, prior to that smoked for 36 years pack a day, in addition had smoked marijuana. His other medical history hypertension, his blood pressure medication had to be by his primary care physician Dr. Juan C Gifford furthermore, worked up this patient for endobronchial valve insertion/lung volume reduction a nd as part of his workup, he underwent a high resolution computed tomography scan of the chest and this was consistent with COPD and he underwent a blood gas that showed significant CO2 retention with a pCO2 of 75 and a pH of 7.4 and a pO2 of 44 and this was on room air oxygen. Based on his underlying CO2 retention, he was essentially got disqualified for endobronchial valve insertion. I was coordinating all this work through this patient and [facility]. Based on all this, the skin is a case of advanced, and states COPD with recurrent hospitalization. The most recent hospitalization for this patient was an 03/27/2021 and the patient was discharged home on 03/31/2021. He is a nonsmoker. He presented back to the hospital because of worsening shortness of breath. He denied having any smoking history. He was taking prednisone 20 mg by mouth daily in addition to other maintenance stop the medications. I'm not absolutely sure the patient was still using his AV APS machine. The patient was placed on 6 L about 2 by nasal cannula to bring his saturation above 90%. White cell count was at 12.9. Sodium level was 123. Troponins 3 has been 0.01 and COVID-19 testing was negative. Chest x-ray showed hyperinflation and diffuse emphysema. EKG showed atrial flutter rhythm. No altered mentation. No pleurisy. No hemoptysis. No chest pain. She was given IV fluids. Sodium level improved from 123 at baseline is up to 1:30. Serum bicarb is above 40. Creatinine is at 0.4 with a BUN of 11. White cell count is at 7.39. On today's evaluation on 05/13/2021 patient is seen in follow-up on medical surgical floor. He is resting comfortably in bed, appears to be less dyspneic although he states his breathing is about the same, however not worsened since admission. Breathing comfortably, he is currently on 4 L of oxygen, his pulse ox is 97%, his been afebrile overnight, lung sounds are extremely diminished, without rhonchi or wheezing. Abiotic in the form of Rocephin and azithromycin in the emergency department for possibility of underlying pneumonia. Patient also continues on IV Cipro medical 60 mg every 6 hours, the emergency department he was in a flutter with 421 conduction, his heart rate is controlled, he is on Eliquis. His brought his AVAPS machine in today. Patient is on automatic settings, he is very compliant with that, he wears it every night at home. Today's labs have been reviewed, his white blood cell count is improved and is down to 7.39, hemoglobin is 13.5, his serum sodium is improving and is up to 1:30, potassium is 5.3, CO2 is greater than 40, and patient does have chronic hypoxic and hypercapnic respiratory failure, in addition he was given some diuretics in the emergency department, he is currently on 0.9 normal saline at a rate of 75 ML per hour. His 3 sets of cardiac troponins were negative. He tested negative for COVID-19. CT chest was ordered and showed no evidence of pulmonary embolism, he did not COPD with moderate emphysema, brought This is, areas of endobronchial plugging, and tree-in-bud opacities. There was also superimposed acute bronchiolitis, and there is josefina consolidation at the posterior right base highly suggestive of pneumonia. In the past patient had sputum cultures positive for pseudomonas At today's evaluation 05/10/2021 patient seen in follow-up on medical surgical floor. He is resting comfortably in bed, currently on 4 L of oxygen, his pulse ox is 96%, afebrile, he did wear his AVAPS machine last night. The patient has Had no acute events overnight, he remains on high-dose IV steroids 60 mg every 6 hours, we switched his antibiotic coverage to Levaquin and cefepime yesterday, he is on nebulized bronchodilators. No hemoptysis, no chest discomfort, lung sounds are extremely diminished, patient is very short of breath with any exertion however this is chronic for him. His white count today is 11.04, hemoglobin is 13, sodium is 135, potassium is 4.8, chloride is 86, CO2 is greater than 40, B1 is 12, creatinine is 0.3. Pro-calcitonin level was 0.06 On today's evaluation on 05/15/2021 patient seen in follow-up on medical surgical floor. This morning patient was noted to be more lethargic, poorly responsive, and a rapid response team was called for evaluation. Apparently last night he did not wear his home AVAPS, and this morning he was noted to be more confused, more ALLERGIC, and he had stooled on himself. His AVAPS device mask does not fit him well anymore, and for that reason patient has not been wearing it consistently. Patient has advanced stage IV COPD, with chronic hypoxic and hypercapnic respiratory failure. He was placed on BiPAP support with pressures of 12 and 6 and FiO2 of 35%, he is currently satting 94%, currently afterward the blood gas was completed showing pO2 of 56, pCO2 of 100, and pH of 7.33, this was done on FiO2 of 32%. Patient is tolerating BiPAP very well, he states he is comfortable on that, and he likes the mask better. He subsequently became a bit more responsive, he is breathing easier. The rest of blood work has been reviewed, showing white blood cell, 10.9, hemoglobin of 14.1, sodium of 131, potassium is 5.0, chloride is 84, CO2 was 45, BUN of 17, creatinine 0.20. His pro calcitonin level was low at 0.06, patient was placed on empiric antibiotics in the form of cefepime and Levaquin for possibility of COPD, and tracheobronchitis. He is on IV Solu-Medrol 60 mg every 6 hours and nebulized bronchodilators Objective - Vital Signs Vital signs: Vital Signs Temp 98.4 F 05/15/21 08:02 Pulse 94 05/15/21 11:11 Resp 19 05/15/21 08:02 BP 131/67 05/15/21 08:02 Pulse Ox 91 L 05/15/21 08:02 Intake & Output 05/14/21 05/15/21 05/15/21 18:59 06:59 18:59 Output Total 900 Balance -900 Output: Urine 900 Other: Voiding Method Urinal # Voids 1 - Exam GENERAL EXAM: Alert, very pleasant, 55-year-old white male, BiPAP support with pressures of 12 and 6, and FiO2 of 35%, resting comfortably, with pulse ox of 94% comfortable in no apparent distress. HEAD: Normocephalic/atraumatic. EYES: Normal reaction of pupils, equal size. Conjunctiva pink, sclera white. NOSE: Clear with pink turbinates. THROAT: No erythema or exudates. NECK: No masses, no JVD, no thyroid enlargement, no adenopathy. CHEST: No chest wall deformity. Symmetrical expansion. LUNGS: Equal air entry with diminished breath sounds bilaterally, and minimal crackles at the right base CVS: Regular rate and rhythm, normal S1 and S2, no gallops, no murmurs, no rubs ABDOMEN: Soft, nontender. No hepatosplenomegaly, normal bowel sounds, no guarding or rigidity. EXTREMITIES: No clubbing, no edema, no cyanosis, 2+ pulses and upper and lower extremities. MUSCULOSKELETAL: Muscle strength and tone normal. SPINE: No scoliosis or deformity SKIN: No rashes CENTRAL NERVOUS SYSTEM: Alert and oriented -3. No focal deficits, tone is normal in all 4 extremities. PSYCHIATRIC: Alert and oriented -3. Appropriate affect. Intact judgment and insight. - Labs CBC & Chem 7: 05/15/21 09:05 05/15/21 09:05 Labs: Abnormal Lab Results - Last 24 Hours (Table) 05/15/21 05/15/21 05/15/21 Range/Units 08:48 09:05 09:05 WBC 10.9 H (3.8-10.6) k/uL Neutrophils # 10.0 H (1.3-7.7) k/uL Lymphocytes # 0.4 L (1.0-4.8) k/uL ABG pH (7.35-7.45) ABG pCO2 (35-45) mmHg ABG pO2 (83-108) mmHg ABG HCO3 (21-25) mmol/L ABG Total CO2 (19-24) mmol/L ABG O2 Saturation (94-97) % Sodium 131 L (137-145) mmol/L Chloride 84 L (98-107) mmol/L Carbon Dioxide 45 H* (22-30) mmol/L Creatinine 0.20 L (0.66-1.25) mg/dL Glucose 210 H (74-99) mg/dL POC Glucose (mg/dL) 187 H (75-99) mg/dL 05/15/21 Range/Units 09:19 WBC (3.8-10.6) k/uL Neutrophils # (1.3-7.7) k/uL Lymphocytes # (1.0-4.8) k/uL ABG pH 7.33 L (7.35-7.45) ABG pCO2 100 H* (35-45) mmHg ABG pO2 56 L* (83-108) mmHg ABG HCO3 53 H* (21-25) mmol/L ABG Total CO2 56 H (19-24) mmol/L ABG O2 Saturation 89.1 L (94-97) % Sodium (137-145) mmol/L Chloride (98-107) mmol/L Carbon Dioxide (22-30) mmol/L Creatinine (0.66-1.25) mg/dL Glucose (74-99) mg/dL POC Glucose (mg/dL) (75-99) mg/dL Microbiology - Last 24 Hours (Table) 05/14/21 19:35 Gram Stain - Preliminary Sputum Sputum Culture - Preliminary 05/11/21 22:03 Blood Culture - Preliminary Blood No Growth after 72 hours 05/11/21 22:18 Blood Culture - Preliminary Blood No Growth after 72 hours Assessment and Plan Plan: #1. Acute on chronic hypoxic and hypercapnic respiratory failure related to acute exacerbation of COPD and right lower lobe pneumonia . COVID 19 was negative. Patient has advanced lung disease. The patient has had recurrent COPD exacerbations. His current chest x-ray showing some increased interstitial markings bilaterally. The patient has had recurrent hospitalization the patient has been hospitalized almost every 2 months for ongoing COPD related complications. For now, denies any signs of an infection. He has limited on Trelegy Ellipta one inhalation a day, prednisone 20 mg by mouth daily and albuterol neb regimen sound the clock. He also has a a AVAPS machine at home which probably is not using on a regular basis. He is a nonsmoker. His baseline FEV1 is noted of 19% of predicted. Extremely poor baseline performance and functional status. Also looks cachectic and malnourished. #2. Severe COPD, baseline FEV1 of 19% of predicted, stage IV COPD, on home oxygen at 4 L . The patient is a chronic CO2 retainer. He was not found to be a candidate for endobronchial [place] valve insertion because of chronic hypercapnic respiratory failure. #3. Alpha-1 anti-trypsin efficiency #4. 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 Hypertension #6. PAF/flutter current rhythm is sinus and the patient is on long-term anti coagulation with Eliquis.. The patient was in a flutter at the time of admission was 4:1 conduction block and heart rate is improved right now and is under better control. 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 His current heart rate is in the mid 80s. #7. borderline concentric LVH/hypertensive heart disease with a preserved LV function and ejection fraction of 6065%, mild pulmonary hypertension #8. previous sputum colonization/infection with pseudomonas aeruginosa based on the sputum analysis that was done on 11/24/2020 and 03/02/2021. Plan: Patient was placed on BiPAP support with pressures of 12 and 6 and FiO2 of 35% His a mask does not fit him well We will utilize hospital BiPAP with the above mentioned settings at bedtime and as needed We'll continue current medical treatment Continue IV steroids Continue nebulized bronchodilators Continue oral anticoagulation Continue to follow Need to clarify his CODE STATUS with his and advanced directive I performed a history & physical examination of the patient and discussed their management with my nurse practitioner, Elida Cardoso. I reviewed the nurse practitioner's note and agree with the documented findings and plan of care. Lung sounds are positive for crackles at the right base throughout the lung miles. The findings and the impression was discussed with the patient. I attest to the documentation by the nurse practitioner. Time with Patient: Less than 30
[2021-05-15] MEDS ORDERED: LEVOFLOXACIN 500MG-D5W PMX 500 MG in DEXTROSE/WATER 1 100ML.BAG IVPB SCH (15:00)
[2021-05-15] MEDS ORDERED: LEVOFLOXACIN 500 MG TAB PO SCH (15:00)
[2021-05-15] MEDS: ALPRAZolam 0.5 MG TAB PO PRN (18:21)
--- NOTE | 2021-05-15 18:52 | P.PN ---
Subjective This is a pleasant 55 years old male with past medical history of hypertension, COPD secondary to alpha-1 antitrypsin deficiency, pancreatitis and atrial fibrillation on Eliquis. His stage rigger is Dr. Gaytan Presents because of one-day of dyspnea cough and green phlegm for the last couple days with no chest pain No GI or urinary symptoms. He denies smoking, alcohol or illicit drugs He's on 4 L oxygen via nasal cannula at home and 20 mg of prednisone daily. He is currently saturating 90-97% on 6 L oxygen via nasal cannula, and afebrile and dressed vitals are stable Labs showing mild leukocytosis of 12.9 K, sodium 123, his sodium went baseline is ranging 126-135 potassium 6.0, creatinine 0.18. Troponin are negative 3 at 0.018, less than 0.012 and less than 0.012. And coronavirus not detected. Chest x-ray showing increased mild opacity may represent atelectasis or infiltrate, chronic micronodular T EKG showing atrial flutter with a 421 A-V block conduction and a rate of 82, QTC 411 Chest x-ray showed increased mild opacity may represent atelectasis or infiltrate In the emergency room he was started on ceftriaxone and Zithromax, Solu-Medrol 40 mg and her symptom IV fluids On admission pulmonary team were consulted 05/13/21 Patient oxygen requirement now at 4 L/m which is his baseline at home however is still tachypneic. He looks lethargic and withdrawn in bed mostly related to his dyspnea. No significant chest pain or coughing. Other vitals are stable. Labs improvement with WBC back to normal. Sodium improved to 1:30 Today he has CTA of the chest was showing no PE, moderate emphysema with advanced COPD and widespread bronchiectasis with acute bronchitis and right basal pneumonia. Echocardiogram was suspicious for a mass in the IVC next to our a however this was not mentioned in the CTA, besides windows software engineer on the case Pulmonary consult following patient closely TobraDex was his wish to cefepime and Levaquin for hospital-acquired pneumonia. He is also on Solu-Medrol 60 mg on home dose of Polycose 05/14/2021 He is significantly less tachypneic compared to yesterday. He is at baseline of 4 L/m of oxygen similar to yesterday. He is using his breathing machine overnight. Other than that he is hemodynamically stable, labs showing mild leukocytosis while he is on steroids. Yesterday he was started on cefepime and Levaquin, secondary to right lower lobe pneumonia suspected on CT of the chest. howevercalcitonin came back negative today at 0.06. So lower the dose of cefepime to 1 g twice a day. Is on Solu- Medrol 60 mg as well as home dose of Eliquis. For his A. fib 05/15/2021 Patient. This morning he was attended and a-team was called, it turns out he has CO2 retention and improved with BiPAP setting of 08/08 and FiO2 of 35% to keep oxygen saturating more than 88%. After BiPAP placement his back to basic mentation. He was fully awake and oriented to time, place and person. He is o rdered and surrounded. However because of BiPAP was switched his oral medication to IV or subcutaneous included Lovenox instead of Eliquis and IV Levaquin. Also he has some urinary retention which is been going on at home with straight cath. No need for urinalysis as he is already on broad-spectrum antibiotics. Flomax has been added. His labs looks stable with WBC is 10.9, sodium 131 and CO2 45. He remains on cefepime and Levaquin as well as Solu-Medrol 60 mg of subcutaneous Lovenox 60 mg twice a day therapeutic dose Objective - Vital Signs Vital signs: Vital Signs Temp 97.2 F L 05/15/21 14:00 Pulse 100 05/15/21 15:38 Resp 20 05/15/21 14:00 BP 136/85 05/15/21 14:00 Pulse Ox 91 L 05/15/21 14:00 Intake & Output 05/14/21 05/15/21 05/15/21 18:59 06:59 18:59 Output Total 900 950 Balance -900 -950 Output: Urine 900 950 Straight 950 Other: Voiding Method Urinal # Voids 1 - Exam GENERAL: The patient is alert and oriented x3, not in any acute distress. Well developed, well nourished. HEENT: Pupils are round and equally reacting to light. EOMI. No scleral icterus. No conjunctival pallor. Normocephalic, atraumatic. No pharyngeal erythema. No thyromegaly. CARDIOVASCULAR: S1 and S2 present. No murmurs, rubs, or gallops. -PULMONARY: Chest is clear to auscultation, tachypnea with decreased air entry on both sides. No significant wheezing. No crepitation ABDOMEN: Soft, nontender, nondistended, normoactive bowel sounds. No palpable organomegaly. MUSCULOSKELETAL: No joint swelling or deformity. EXTREMITIES: No cyanosis, clubbing, or pedal edema. NEUROLOGICAL: Gross neurological examination did not reveal any focal deficits. SKIN: No rashes. no petechiae. - Labs CBC & Chem 7: 05/15/21 09:05 05/15/21 09:05 Labs: Abnormal Lab Results - Last 24 Hours (Table) 05/15/21 05/15/21 05/15/21 Range/Units 08:48 09:05 09:05 WBC 10.9 H (3.8-10.6) k/uL Neutrophils # 10.0 H (1.3-7.7) k/uL Lymphocytes # 0.4 L (1.0-4.8) k/uL ABG pH (7.35-7.45) ABG pCO2 (35-45) mmHg ABG pO2 (83-108) mmHg ABG HCO3 (21-25) mmol/L ABG Total CO2 (19-24) mmol/L ABG O2 Saturation (94-97) % Sodium 131 L (137-145) mmol/L Chloride 84 L (98-107) mmol/L Carbon Dioxide 45 H* (22-30) mmol/L Creatinine 0.20 L (0.66-1.25) mg/dL Glucose 210 H (74-99) mg/dL POC Glucose (mg/dL) 187 H (75-99) mg/dL 05/15/21 Range/Units 09:19 WBC (3.8-10.6) k/uL Neutrophils # (1.3-7.7) k/uL Lymphocytes # (1.0-4.8) k/uL ABG pH 7.33 L (7.35-7.45) ABG pCO2 100 H* (35-45) mmHg ABG pO2 56 L* (83-108) mmHg ABG HCO3 53 H* (21-25) mmol/L ABG Total CO2 56 H (19-24) mmol/L ABG O2 Saturation 89.1 L (94-97) % Sodium (137-145) mmol/L Chloride (98-107) mmol/L Carbon Dioxide (22-30) mmol/L Creatinine (0.66-1.25) mg/dL Glucose (74-99) mg/dL POC Glucose (mg/dL) (75-99) mg/dL Microbiology - Last 24 Hours (Table) 05/14/21 19:35 Gram Stain - Preliminary Sputum Sputum Culture - Preliminary 05/11/21 22:03 Blood Culture - Preliminary Blood No Growth after 72 hours 05/11/21 22:18 Blood Culture - Preliminary Blood No Growth after 72 hours Assessment and Plan Assessment: Acute COPD exacerbation, advance to stage with FEV1 of 19%, and widespread bronchiectasis with acute bronchitis and moderate emphysema. Right lower lobe pneumonia Acute CO2 retention with respiratory acidosis, improved with BiPAP Acute urinary retention Atrial flutter with 4:1 A-V conduction, cardiology team signed off History of alpha-1 antitrypsin deficiency Hypertension Chronic hyponatremia Chronic atrial fibrillation on Eliquis and raped is controlled. Currently is on a flutter with 4:1 A-V conduction History of pancreatitis Plan: This is a pleasant 55 years old male who presents with acute COPD exacerbation, And atrial flutter With steroids, bronchodilators, oxygen. And continue with antibiotic which are changed to cefepime and Levaquin Follow-up with pulmonary consult cardiology consult signed off Continue with BiPAP Continue with bladder scan and Flomax Labs and medication were reviewed.. Continue same treatment. Continue with symptomatic treatment. Resume home medication. Monitor lytes and vitals. DVT and GI prophylaxis. Further recommendations depends on the clinical course of the patient DVT prophylaxis:Eliquis GI Prophylaxis: Pepcid Prognosis is guarded
[2021-05-15] MEDS: TAMSULOSIN 0.4 MG CAP.ER.24H PO SCH (20:53)
[2021-05-15] MEDS: MIRTAZAPINE 15 MG TAB PO SCH (20:53)
[2021-05-16] MEDS: methylPREDNISolone SOD SUCCI 125 MG/2 ML VIAL IV SCH ×4 (04:35→23:11)
[2021-05-16] MEDS: ALPRAZolam 0.5 MG TAB PO PRN ×2 (04:35→20:35)
--- NOTE | 2021-05-16 07:13 | XR ---
EXAMINATION TYPE: XR chest 1V portable DATE OF EXAM: 05/16/2021 HISTORY: Shortness of breath. COMPARISON: 05/12/2021 TECHNIQUE: Single view of the chest is submitted. FINDINGS: Demonstrated are scattered senescent parenchymal change. Reticulonodular infiltrates persist bilaterally. The heart is stable. Hilar and mediastinal structures are within normal limits. Degenerative changes are seen of the dorsal spine. IMPRESSION: 1. Reticulonodular infiltrates persist bilaterally. Hyperinflation compatible with COPD.
[2021-05-16] MEDS: ALBUTEROL NEBULIZED 2.5 MG/3 ML INHALATION SCH ×4 (07:33→21:45)
[2021-05-16] MEDS: FLUTICASONE INHALATION SCH (07:37)
[2021-05-16] MEDS: VILANTER INHALATION SCH (07:37)
[2021-05-16] MEDS: UMECLIDIN BL INHALATION SCH (07:37)
[2021-05-16 08:05] LABS: African American GFR (CKD) >90 (>60 ml/min/1.73 sqM); Blood Urea Nitrogen 21 mg/dL (9-20); Calcium 8.8 mg/dL (8.4-10.2); Chloride 83 mmol/L (98-107); Glucose 196 mg/dL (74-99); Non-African American GFR(CKD) >90 (>60 ml/min/1.73 sqM); Potassium 4.5 mmol/L (3.5-5.1); Sodium 131 mmol/L (137-145)
[2021-05-16] MEDS: ENOXAPARIN 60 MG/0.6 ML SYRINGE SQ SCH (08:20)
[2021-05-16] MEDS: SERTRALINE 50 MG TAB PO SCH (08:20)
[2021-05-16] MEDS: LORATADINE 10 MG TAB PO SCH (08:20)
[2021-05-16] MEDS: FAMOTIDINE 20 MG TAB PO SCH (08:20)
[2021-05-16] MEDS: DILTIAZEM CD 240 MG CAP.ER.24H PO SCH (08:20)
[2021-05-16 08:35] LABS: Basophils % (A) 0 %; Eosinophils % (A) 0 %; HCT 44.1 % (39.0-53.0); HGB 13.8 gm/dL (13.0-17.5); Hypochromasia Slight; Lymphocytes # (A) 0.4 k/uL (1.0-4.8); Lymphocytes % (A) 4 %; MCH 30.1 pg (25.0-35.0); MCHC 31.2 g/dL (31.0-37.0); MCV 96.5 fL (80.0-100.0); Mean Platelet Volume 6.7; Monocytes # (A) 0.3 k/uL (0-1.0); Monocytes % (A) 3 %; Neutrophils % (A) 92 %; Platelet Count 302 k/uL (150-450); RBC 4.58 m/uL (4.30-5.90); RDW 14.6 % (11.5-15.5); WBC 9.8 k/uL (3.8-10.6)
[2021-05-16] MEDS: CEFEPIME 1 GM in SODIUM CHLORIDE 0.9% 50 ML IVPB SCH ×2 (08:56→20:42)
[2021-05-16 09:05] LABS: Anion Gap 5 mmol/L
[2021-05-16 09:06] LABS: Carbon Dioxide 43 mmol/L (22-30)
[2021-05-16] MEDS ORDERED: DILTIAZEM DRIP BOLUS FROM BAG 1 MG SOLN IV ONE (09:11)
[2021-05-16] MEDS ORDERED: DILTIAZEM 125 MG in SODIUM CHLORIDE 0.9% 100 ML IV SCH (09:30)
[2021-05-16] MEDS ORDERED: METOPROLOL SUCCINATE (ER) 25 MG TAB.ER.24H PO SCH (09:45)
--- NOTE | 2021-05-16 10:31 | CDI ---
Documentation Clarification Form Date: 05/16/2021 10:02:09 AM From: Gabriela Contreras RN CCDS Admit Date: 05/11/2021 07:51:00 PM Patient Name: Mervin Daigle Visit Number: [id number] Discharge Date: ATTENTION: The Clinical Documentation Specialists (CDI) and [facility] Coding Staff appreciate your assistance in clarifying documentation. Please respond to the clarification below the line at the bottom and electronically sign. The CDI & [facility] Coding staff will review the response and follow-up if needed. Please note: Queries are made part of the Legal Health Record. If you have any questions, please contact the author of this message via ITS. Dr. Franz E Sheet Hospital-acquired is documented 05/13 medicine progress note, Additional clarification regarding the type of pneumonia is requested. History/Risk Factors: 55-year-old male presents to the ED with dyspnea, cough and green phlegm for the last few days with no chest pain. Medical history: Atrial Fibrillation, COPD and HTN. Clinical Indicators: WBC/Left shift: 05/11 Wbc 12.9; Neutrophils 11.80 X-ray: 05/12 COPD with persistent bilateral interstitial infiltrates. Lung/Breathing assessment: 05/12 Chest is clear to auscultation, bilateral expiratory wheezing. Treatment: 05/11 Solu-Medrol 125mg IV x 1, 05/12 Solumedrol 40mg IV Q6HR changed 05/12 to 60mg IV Q6HR to current Antibiotics 05/11 Azithromycin 500mg IVPB x 1, 05/13 to current Azithromycin 500mg IVPB Q24H, 05/11 Ceftriaxone 1,000mg IVPB x 1; 05/13 dc 05/13 Ceftriaxone 1 gm IVPB Q24H; 05/13 to 05/14 Levofloxacin 500mg IVPB Q24H; 05/15 Levofloxacin 500mg IVPB to current. 05/13 Cefepime HCI 2 gm IVPB Q12HR x 1; 05/14 to current Cefepime 1 gm Q12HR. 05/11 O2 via nasal cannula 3-6L and Bipap Breathing Tx: 05/11 current Ventolin Nebulized 2.5mg Inhalation RT Q2H PRN. Please clarify the type of pneumonia, if known: [ ] Gram Negative Bacterial Pneumonia [ ] Other bacteria (please specify) [ ] Other, please specify [ ] Unable to determine (Template Last Revised: November 2020) Gram Negative Bacterial Pneumonia MTDD
--- NOTE | 2021-05-16 11:58 | P.PN ---
Subjective This is a pleasant 55 years old male with past medical history of hypertension, COPD secondary to alpha-1 antitrypsin deficiency, pancreatitis and atrial fibrillation on Eliquis. 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 Gaytan Presents because of one-day of dyspnea cough and green phlegm for the last couple days with no chest pain No GI or urinary symptoms. He denies smoking, alcohol or illicit drugs He's on 4 L oxygen via nasal cannula at home and 20 mg of prednisone daily. He is currently saturating 90-97% on 6 L oxygen via nasal cannula, and afebrile and dressed vitals are stable Labs showing mild leukocytosis of 12.9 K, sodium 123, his sodium went baseline is ranging 126-135 potassium 6.0, creatinine 0.18. Troponin are negative 3 at 0.018, less than 0.012 and less than 0.012. And coronavirus not detected. Chest x-ray showing increased mild opacity may represent atelectasis or infiltrate, chronic micronodular T EKG showing atrial flutter with a 421 A-V block conduction and a rate of 82, QTC 411 Chest x-ray showed increased mild opacity may represent atelectasis or infiltrate In the emergency room he was started on ceftriaxone and Zithromax, Solu-Medrol 40 mg and her symptom IV fluids On admission pulmonary team were consulted 05/13/21 Patient oxygen requirement now at 4 L/m which is his baseline at home however is still tachypneic. He looks lethargic and withdrawn in bed mostly related to his dyspnea. No significant chest pain or coughing. Other vitals are stable. Labs improvement with WBC back to normal. Sodium improved to 1:30 Today he has CTA of the chest was showing no PE, moderate emphysema with advanced COPD and widespread bronchiectasis with acute bronchitis and right basal pneumonia. Echocardiogram was suspicious for a mass in the IVC next to our a however this was not mentioned in the CTA, besides wax pourer on the case Pulmonary consult following patient closely TobraDex was his wish to cefepime and Levaquin for hospital-acquired pneumonia. He is also on Solu-Medrol 60 mg on home dose of Polycose 05/14/2021 He is significantly less tachypneic compared to yesterday. He is at baseline of 4 L/m of oxygen similar to yesterday. He is using his breathing machine overnight. Other than that he is hemodynamically stable, labs showing mild leukocytosis while he is on steroids. Yesterday he was started on cefepime and Levaquin, secondary to right lower lobe pneumonia suspected on CT of the chest. howevercalcitonin came back negative today at 0.06. So lower the dose of cefepime to 1 g twice a day. Is on Solu- Medrol 60 mg as well as home dose of Eliquis. For his A. fib 05/15/2021 Patient. This morning he was attended and a-team was called, it turns out he has CO2 retention and improved with BiPAP setting of 08/08 and FiO2 of 35% to keep oxygen saturating more than 88%. After BiPAP placement his back to basic mentation. He was fully awake and oriented to time, place and person. He is o rdered and surrounded. However because of BiPAP was switched his oral medication to IV or subcutaneous included Lovenox instead of Eliquis and IV Levaquin. Also he has some urinary retention which is been going on at home with straight cath. No need for urinalysis as he is already on broad-spectrum antibiotics. Flomax has been added. His labs looks stable with WBC is 10.9, sodium 131 and CO2 45. He remains on cefepime and Levaquin as well as Solu-Medrol 60 mg of subcutaneous Lovenox 60 mg twice a day therapeutic dose 05/16/2021 Patient today this morning he was doing better, his breathing was quite correct than the last couple days. He still needed to use his BiPAP during the night however in the morning is back to 4-5 L of oxygen nasal. His breathing looks easier and chest x-ray was showing critical nodular infiltrates bilaterally with hyperinflated COPD chest over when I review of the chest x-ray by myself and shows improvement compared to one from 05/12. However later on and a-team was called because of tachycardia up to 160 secondary to a flutter/fib, he was started on Cardizem drip and metoprolol 25 mg daily and transferred to select units Also he has evidence of urinary retention, recurrent Dr. him in the morning he preferred to do straight cath only, Flomax was started, however during a-team Mcgill catheter was placed A. fib/flutter with RVR, Acute urinary retention status post Mcgill catheter Review of systems CONSTITUTIONAL: No fever, no malaise, no fatigue. HEENT: No recent visual problems or hearing problems. Denied any sore throat. CARDIOVASCULAR: No orthopnea, PND, no palpitations, no syncope. PULMONARY: No chest wall tenderness, no hemoptysis. GASTROINTESTINAL: No diarrhea, no nausea, no vomiting, no abdominal pain. Normoa ctive bowel sounds. NEUROLOGICAL: No headaches, no weakness, no numbness. Active Medications Generic Name Dose Route Start Last Admin Trade Name Freq PRN Reason Stop Dose Admin Acetaminophen 650 mg 05/11/21 19:51 Acetaminophen Tab 325 Mg Tab PO Q6HR PRN Mild Pain or Fever > 100.5 Albuterol Sulfate 2.5 mg 05/12/21 08:00 05/16/21 07:33 Albuterol Nebulized 2.5 Mg/3 Ml INHALATION 2.5 mg RT-QID CLAUDE Administration Albuterol Sulfate 2.5 mg 05/11/21 20:31 Albuterol Nebulized 2.5 Mg/3 Ml INHALATION RT-Q2H PRN Shortness Of Breath Or Wheezing Alprazolam 0.5 mg 05/11/21 19:54 05/16/21 04:35 Alprazolam 0.5 Mg Tab PO 0.5 mg TID PRN Administration Anxiety Enoxaparin Sodium 60 mg 05/15/21 09:45 05/16/21 08:20 Enoxaparin 60 Mg/0.6 Ml Syringe SQ 60 mg Q12HR CLAUDE Administration Famotidine 20 mg 05/12/21 09:00 05/16/21 08:20 Famotidine 20 Mg Tab PO 20 mg DAILY CLAUDE Administration Cefepime HCl 1 gm/ Sodium 50 mls @ 12.5 mls/hr 05/14/21 21:00 05/16/21 08:56 Chloride IVPB 12.5 mls/hr Q12HR CLAUDE Administration Diltiazem HCl 125 mg/ Sodium 125 mls @ 10 mls/hr 05/16/21 09:30 05/16/21 10:05 Chloride IV 10 mg/hr .[id number] CLAUDE 10 mls/hr Administration 10 MG/HR Insulin Aspart 0 unit 05/16/21 12:30 Insulin Aspart (Novolog) 100 Unit/Ml Vial SQ ACHS [facility] Protocol Levofloxacin 500 mg 05/16/21 15:00 Levofloxacin 500 Mg Tab PO Q24H CLAUDE Loratadine 10 mg 05/12/21 09:00 05/16/21 08:20 Loratadine 10 Mg Tab PO 10 mg DAILY CLAUDE Administration Melatonin 10 mg 05/12/21 06:55 Melatonin 5 Mg Tablet PO HS PRN Insomnia Methylprednisolone Sodium Succinate 60 mg 05/12/21 18:00 05/16/21 04:35 Methylprednisolone Sod Succi 125 Mg/2 Ml Vial IV 60 mg Q6HR CLAUDE Administration Metoprolol Succinate 25 mg 05/16/21 09:45 05/16/21 10:18 Metoprolol Succinate (Er) 25 Mg Tab.Er.24h PO 25 mg DAILY CLAUDE Administration Mirtazapine 7.5 mg 05/12/21 21:00 05/15/21 20:53 Mirtazapine 15 Mg Tab PO 7.5 mg HS CLAUDE Administration Patient's Own ( 1 puff 05/12/21 08:00 05/16/21 07:37 Fluticasone/ INHALATION Not Given Umeclidin/Vilanter [ RT-DAILY CLAUDE Trelegy Ellipta 100- 62.5-25] 1 Each Bl Ondansetron HCl 4 mg 05/11/21 19:51 Ondansetron 4 Mg/2 Ml Vial IVP Q8HR PRN Nausea And Vomiting Sertraline HCl 50 mg 05/12/21 09:00 05/16/21 08:20 Sertraline 50 Mg Tab PO 50 mg DAILY CLAUDE Administration Tamsulosin HCl 0.4 mg 05/15/21 19:00 05/15/21 20:53 Tamsulosin 0.4 Mg Cap.Er.24h PO 0.4 mg PC-SUPPER CLAUDE Administration Objective - Vital Signs Vital signs: Vital Signs Temp 97.7 F 05/16/21 11:21 Pulse 91 05/16/21 11:21 Resp 20 05/16/21 11:21 BP 122/82 05/16/21 11:21 Pulse Ox 94 L 05/16/21 11:21 Intake & Output 05/15/21 05/16/21 05/16/21 18:59 06:59 18:59 Intake Total 50 Output Total 950 600 Balance -950 -600 50 Intake: IV 50 Cefepime 1 gm In Sodium 50 Chloride 0.9% 50 ml @ 12. 5 mls/hr IVPB Q12HR CLAUDE Rx#:[id number] Output: Urine 950 600 Straight 950 600 Other: # Bowel Movements 2 - Exam GENERAL: The patient is alert and oriented x3, not in any acute distress. Well developed, well nourished. HEENT: Pupils are round and equally reacting to light. EOMI. No scleral icterus. No conjunctival pallor. Normocephalic, atraumatic. No pharyngeal erythema. No thyromegaly. CARDIOVASCULAR: S1 and S2 present. No murmurs, rubs, or gallops. -PULMONARY: Chest is clear to auscultation, tachypnea with decreased air entry on both sides. No significant wheezing. No crepitation ABDOMEN: Soft, nontender, nondistended, normoactive bowel sounds. No palpable organomegaly. MUSCULOSKELETAL: No joint swelling or deformity. EXTREMITIES: No cyanosis, clubbing, or pedal edema. NEUROLOGICAL: Gross neurological examination did not reveal any focal deficits. SKIN: No rashes. no petechiae. - Labs CBC & Chem 7: 05/16/21 07:33 05/16/21 07:33 Labs: Abnormal Lab Results - Last 24 Hours (Table) 05/16/21 05/16/21 Range/Units 07:33 07:33 Neutrophils # 9.0 H (1.3-7.7) k/uL Lymphocytes # 0.4 L (1.0-4.8) k/uL Sodium 131 L (137-145) mmol/L Chloride 83 L (98-107) mmol/L Carbon Dioxide 43 H* (22-30) mmol/L BUN 21 H (9-20) mg/dL Creatinine 0.29 L (0.66-1.25) mg/dL Glucose 196 H (74-99) mg/dL Microbiology - Last 24 Hours (Table) 05/14/21 19:35 Gram Stain - Preliminary Sputum Sputum Culture - Preliminary Gram Neg Bacilli 05/11/21 22:03 Blood Culture - Preliminary Blood No Growth after 96 hours 05/11/21 22:18 Blood Culture - Preliminary Blood No Growth after 96 hours Assessment and Plan Assessment: Acute COPD exacerbation, advance to stage with FEV1 of 19%, and widespread bronchiectasis with acute bronchitis and moderate emphysema. Right lower lobe pneumonia secondary to gram-negative bacilli Acute CO2 retention with respiratory acidosis, improved with BiPAP Acute urinary retention status post Mcgill catheter Atrial flutter with 4:1 A-V conduction, cardiology team signed off History of alpha-1 antitrypsin deficiency Hypertension Chronic hyponatremia Chronic atrial fibrillation on Eliquis and raped is controlled. Currently is on a flutter with 4:1 A-V conduction History of pancreatitis Plan: This is a pleasant 55 years old male who presents with acute COPD exacerbation, And atrial flutter With steroids, bronchodilators, oxygen. And continue with antibiotic which are changed to cefepime and Levaquin Follow-up with pulmonary team cardiology consult for recurrent A. fib/flutter Continue with BiPAP at night Continue Mcgill catheter and Flomax Labs and medication were reviewed.. Continue same treatment. Continue with symptomatic treatment. Resume home medication. Monitor lytes and vitals. DVT and GI prophylaxis. Further recommendations depends on the clinical course of the patient DVT prophylaxis:Eliquis GI Prophylaxis: Pepcid Prognosis is guarded
[2021-05-16 12:02] LABS: Glucose,Whole Blood 316 mg/dL (75-99)
[2021-05-16] MEDS: INSULIN ASPART (NovoLOG) 100 UNIT/ML VIAL SQ SCH ×3 (12:17→20:33)
[2021-05-16 12:49] LABS: Magnesium 2.1 mg/dL (1.6-2.3)
--- NOTE | 2021-05-16 13:11 | P.PN ---
Subjective Progress Note Date: 05/16/21 Principal diagnosis: Shortness of breath 55-year-old white male patient with history of severe COPD/emphysema, alpha-1 antitrypsin deficiency,, with baseline FEV1 of 19% of predicted and severe diffusion abnormality of 40% of predicted. Patient was recently hospitalized 10/27/2020 through 11/01/2020 and later on hospitalized between 11/23/2020 and 12/01/2020 for acute exacerbation of severe COPD. He is on nebulized DuoNeb, Trelegy Ellipta [id number] one puff inhalation daily. The patient also has a a a AVAPS machine at home but utilizes for chronic hypercapnic respiratory failure and recurrent COPD exacerbation. Patient is an ex-smoker, however has not smoked 1 year, prior to that smoked for 36 years pack a day, in addition had smoked marijuana. His other medical history hypertension, his blood pressure medication had to be by his primary care physician Dr. Juan C Gifford furthermore, worked up this patient for endobronchial valve insertion/lung volume reduction a nd as part of his workup, he underwent a high resolution computed tomography scan of the chest and this was consistent with COPD and he underwent a blood gas that showed significant CO2 retention with a pCO2 of 75 and a pH of 7.4 and a pO2 of 44 and this was on room air oxygen. Based on his underlying CO2 retention, he was essentially got disqualified for endobronchial valve insertion. I was coordinating all this work through this patient and [facility]. Based on all this, the skin is a case of advanced, and states COPD with recurrent hospitalization. The most recent hospitalization for this patient was an 03/27/2021 and the patient was discharged home on 03/31/2021. He is a nonsmoker. He presented back to the hospital because of worsening shortness of breath. He denied having any smoking history. He was taking prednisone 20 mg by mouth daily in addition to other maintenance stop the medications. I'm not absolutely sure the patient was still using his AV APS machine. The patient was placed on 6 L about 2 by nasal cannula to bring his saturation above 90%. White cell count was at 12.9. Sodium level was 123. Troponins 3 has been 0.01 and COVID-19 testing was negative. Chest x-ray showed hyperinflation and diffuse emphysema. EKG showed atrial flutter rhythm. No altered mentation. No pleurisy. No hemoptysis. No chest pain. She was given IV fluids. Sodium level improved from 123 at baseline is up to 1:30. Serum bicarb is above 40. Creatinine is at 0.4 with a BUN of 11. White cell count is at 7.39. On today's evaluation on 05/13/2021 patient is seen in follow-up on medical surgical floor. He is resting comfortably in bed, appears to be less dyspneic although he states his breathing is about the same, however not worsened since admission. Breathing comfortably, he is currently on 4 L of oxygen, his pulse ox is 97%, his been afebrile overnight, lung sounds are extremely diminished, without rhonchi or wheezing. Abiotic in the form of Rocephin and azithromycin in the emergency department for possibility of underlying pneumonia. Patient also continues on IV Cipro medical 60 mg every 6 hours, the emergency department he was in a flutter with 421 conduction, his heart rate is controlled, he is on Eliquis. His brought his AVAPS machine in today. Patient is on automatic settings, he is very compliant with that, he wears it every night at home. Today's labs have been reviewed, his white blood cell count is improved and is down to 7.39, hemoglobin is 13.5, his serum sodium is improving and is up to 1:30, potassium is 5.3, CO2 is greater than 40, and patient does have chronic hypoxic and hypercapnic respiratory failure, in addition he was given some diuretics in the emergency department, he is currently on 0.9 normal saline at a rate of 75 ML per hour. His 3 sets of cardiac troponins were negative. He tested negative for COVID-19. CT chest was ordered and showed no evidence of pulmonary embolism, he did not COPD with moderate emphysema, brought This is, areas of endobronchial plugging, and tree-in-bud opacities. There was also superimposed acute bronchiolitis, and there is josefina consolidation at the posterior right base highly suggestive of pneumonia. In the past patient had sputum cultures positive for pseudomonas At today's evaluation 05/10/2021 patient seen in follow-up on medical surgical floor. He is resting comfortably in bed, currently on 4 L of oxygen, his pulse ox is 96%, afebrile, he did wear his AVAPS machine last night. The patient has Had no acute events overnight, he remains on high-dose IV steroids 60 mg every 6 hours, we switched his antibiotic coverage to Levaquin and cefepime yesterday, he is on nebulized bronchodilators. No hemoptysis, no chest discomfort, lung sounds are extremely diminished, patient is very short of breath with any exertion however this is chronic for him. His white count today is 11.04, hemoglobin is 13, sodium is 135, potassium is 4.8, chloride is 86, CO2 is greater than 40, B1 is 12, creatinine is 0.3. Pro-calcitonin level was 0.06 On today's evaluation on 05/15/2021 patient seen in follow-up on medical surgical floor. This morning patient was noted to be more lethargic, poorly responsive, and a rapid response team was called for evaluation. Apparently last night he did not wear his home AVAPS, and this morning he was noted to be more confused, more ALLERGIC, and he had stooled on himself. His AVAPS device mask does not fit him well anymore, and for that reason patient has not been wearing it consistently. Patient has advanced stage IV COPD, with chronic hypoxic and hypercapnic respiratory failure. He was placed on BiPAP support with pressures of 12 and 6 and FiO2 of 35%, he is currently satting 94%, currently afterward the blood gas was completed showing pO2 of 56, pCO2 of 100, and pH of 7.33, this was done on FiO2 of 32%. Patient is tolerating BiPAP very well, he states he is comfortable on that, and he likes the mask better. He subsequently became a bit more responsive, he is breathing easier. The rest of blood work has been reviewed, showing white blood cell, 10.9, hemoglobin of 14.1, sodium of 131, potassium is 5.0, chloride is 84, CO2 was 45, BUN of 17, creatinine 0.20. His pro calcitonin level was low at 0.06, patient was placed on empiric antibiotics in the form of cefepime and Levaquin for possibility of COPD, and tracheobronchitis. He is on IV Solu-Medrol 60 mg every 6 hours and nebulized bronchodilators On today's evaluation on 05/16/2021 patient is being transferred to selective care unit related to Isabella dick with RVR, patient has been started on Cardizem infusion which is currently running at 5 mg per hour, he did wear BiPAP support last night with pressures of 12/6 and FiO2 of 32%. Tolerated it very well, he is currently back on 5 L per nasal cannula, breathing comfortably, other than A. fib with RVR, other vital signs have been stable, his been afebrile, blood pressure is been stable. His chest x-ray today shows reticulonodular infiltrates, hyperinflation. Patient remains on a combination of Levaquin and cefepime, pro calcitonin level was low, he is not coughing up significant amount of secretions, he remains on IV Solu-Medrol 60 mg every 6 hours, today's labs have been reviewed, his white blood cell count is 9.8, hemoglobin is 13.8, later count is 302, sodium is 131, potassium is 4.5, chloride is 83, CO2 is 43, B1 is 21, creatinine is 0.29. Objective - Vital Signs Vital signs: Vital Signs Temp 97.7 F 05/16/21 11:21 Pulse 94 05/16/21 12:24 Resp 20 05/16/21 12:24 BP 122/82 05/16/21 11:21 Pulse Ox 94 L 05/16/21 11:21 Intake & Output 05/15/21 05/16/21 05/16/21 18:59 06:59 18:59 Intake Total 50 Output Total 950 600 Balance -950 -600 50 Intake: IV 50 Cefepime 1 gm In Sodium 50 Chloride 0.9% 50 ml @ 12. 5 mls/hr IVPB Q12HR [facility] Rx#:[id number] Output: Urine 950 600 Straight 950 600 Other: # Bowel Movements 2 - Exam GENERAL EXAM: Alert, very pleasant, 55-year-old white male, BiPAP support with pressures of 12 and 6, and FiO2 of 35%, resting comfortably, with pulse ox of 94% comfortable in no apparent distress. HEAD: Normocephalic/atraumatic. EYES: Normal reaction of pupils, equal size. Conjunctiva pink, sclera white. NOSE: Clear with pink turbinates. THROAT: No erythema or exudates. NECK: No masses, no JVD, no thyroid enlargement, no adenopathy. CHEST: No chest wall deformity. Symmetrical expansion. LUNGS: Equal air entry with diminished breath sounds bilaterally, and minimal crackles at the right base CVS: Regular rate and rhythm, normal S1 and S2, no gallops, no murmurs, no rubs ABDOMEN: Soft, nontender. No hepatosplenomegaly, normal bowel sounds, no guarding or rigidity. EXTREMITIES: No clubbing, no edema, no cyanosis, 2+ pulses and upper and lower extremities. MUSCULOSKELETAL: Muscle strength and tone normal. SPINE: No scoliosis or deformity SKIN: No rashes CENTRAL NERVOUS SYSTEM: Alert and oriented -3. No focal deficits, tone is normal in all 4 extremities. PSYCHIATRIC: Alert and oriented -3. Appropriate affect. Intact judgment and insight. - Labs CBC & Chem 7: 05/16/21 07:33 05/16/21 07:33 Labs: Abnormal Lab Results - Last 24 Hours (Table) 05/16/21 05/16/21 05/16/21 Range/Units 07:33 07:33 11:52 Neutrophils # 9.0 H (1.3-7.7) k/uL Lymphocytes # 0.4 L (1.0-4.8) k/uL Sodium 131 L (137-145) mmol/L Chloride 83 L (98-107) mmol/L Carbon Dioxide 43 H* (22-30) mmol/L BUN 21 H (9-20) mg/dL Creatinine 0.29 L (0.66-1.25) mg/dL Glucose 196 H (74-99) mg/dL POC Glucose (mg/dL) 316 H (75-99) mg/dL Microbiology - Last 24 Hours (Table) 05/14/21 19:35 Gram Stain - Preliminary Sputum Sputum Culture - Preliminary Gram Neg Bacilli 05/11/21 22:03 Blood Culture - Preliminary Blood No Growth after 96 hours 05/11/21 22:18 Blood Culture - Preliminary Blood No Growth after 96 hours Assessment and Plan Plan: #1. Acute on chronic hypoxic and hypercapnic respiratory failure related to acute exacerbation of COPD and right lower lobe pneumonia . COVID 19 was negative. Patient has advanced lung disease. The patient has had recurrent COPD exacerbations. His current chest x-ray showing some increased interstitial markings bilaterally. The patient has had recurrent hospitalization the patient has been hospitalized almost every 2 months for ongoing COPD related complications. For now, denies any signs of an infection. He has limited on Trelegy Ellipta one inhalation a day, prednisone 20 mg by mouth daily and albuterol neb regimen sound the clock. He also has a a AVAPS machine at home which probably is not using on a regular basis. He is a nonsmoker. His baseline FEV1 is noted of 19% of predicted. Extremely poor baseline performance and functional status. Also looks cachectic and malnourished. #2. Severe COPD, baseline FEV1 of 19% of predicted, stage IV COPD, on home oxygen at 4 L . The patient is a chronic CO2 retainer. He was not found to be a candidate for endobronchial [place] valve insertion because of chronic hypercapnic respiratory failure. #3. Alpha-1 anti-trypsin efficiency #4. 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 Hypertension #6. PAF/flutter current rhythm is sinus and the patient is on long-term anticoagulation with Eliquis.. The patient was in a flutter at the time of admission was 4:1 conduction block and heart rate is improved right now and is under better control. 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 His current heart rate is in the mid 80s. #7. borderline concentric LVH/hypertensive heart disease with a preserved LV function and ejection fraction of 6065%, mild pulmonary hypertension #8. previous sputum colonization/infection with pseudomonas aeruginosa based on the sputum analysis that was done on 11/24/2020 and 03/02/2021. #9. Episode of A. fib with RVR, patient is currently started on Cardizem infusion at 5 mg per hour, will be transferred to selective care unit, he is already on Eliquis for history of paroxysmal atrial fibrillation Plan: Continue current medical treatment Continue same antibiotics Continue IV steroids Continue nebulized bronchodilators Patient did wear BiPAP support last night, tolerates it very well We asked the patient to ask his to check if there is a spare facemask at home for his home AVAPS device He is already on Eliquis related to his history of paroxysmal atrial fibr illation He was transferred to selective care unit for cardiac monitoring in view of A. fib with RVR Rate control medications per cardiology CODE STATUS has been clarified, he is a full code without intubation I performed a history & physical examination of the patient and discussed their management with my nurse practitioner, Elida Cardoso. I reviewed the nurse practitioner's note and agree with the documented findings and plan of care. Lung sounds are positive for crackles at the right base throughout the lung miles. The findings and the impression was discussed with the patient. I at test to the documentation by the nurse practitioner. Time with Patient: Less than 30
[2021-05-16 14:01] LABS: T4, Free (Free Thyroxine) 0.59 ng/dL (0.78-2.19)
--- NOTE | 2021-05-16 14:08 | P.PN ---
Subjective This is a pleasant 55-year-old male past medical history significant for paroxysmal atrial fibrillation/flutter, COPD, hypertension and alpha-1 antitrypsin. He follows in the office with Dr. Lebron. He was initially seen and evaluated and we have been asked to see him again in consultation secondary to recurrent atrial flutter with rapid ventricular rates. Other than being short of breath he doesn't have any significant symptoms. He thinks he may have felt a little dizzy but isn't even very positive about that. He denies palpit ations or chest pain. Blood pressure 122/82 heart rate 91 afebrile maintaining oxygen saturation on nasal cannula. Laboratory data reviewed, CBC unremarkable, sodium 131, potassium 4.5, creatinine 0.29. Currently maintained on Cardizem infusion and Toprol 25 mg daily. GENERAL: Well-appearing, well-nourished and in no acute distress. NECK: Supple without JVD or thyromegaly. LUNGS: Breath sounds clear to auscultation bilaterally. Respiration equal and unlabored. No wheezes, rales or rhonchi. HEART: Irregular rate and rhythm without murmurs, rubs or gallops. S1 and S2 heard. EXTREMITIES: Normal range of motion, no edema. No clubbing or cyanosis. Peripheral pulses intact. ASSESSMENT Paroxysmal atrial tachycardia/atrial flutter Hypertension Acute exacerbation of COPD Alpha-1 antitrypsin deficiency Former nicotine PLAN Initially the patient was requiring BiPAP and therefore his anticoagulation was changed Eliquis, he is currently on nasal cannula we will switch him back to oral Eliquis 5 mg twice a day. Discontinue Cardizem infusion. Increase oral cardizem to 360mg daily. Discontinue toprol. Further recommendations to follow based upon clinical course. Nurse Practitioner note has been reviewed, I agree with a documented findings and plan of care. Patient was seen and examined. Objective - Vital Signs Vital signs: Vital Signs Temp 97.7 F 05/16/21 11: Pulse 91 05/16/21 11:21 Resp 20 05/16/21 11:21 BP 122/82 05/16/21 11:21 Pulse Ox 94 L 05/16/21 11:21 Intake & Output 05/15/21 05/16/21 05/16/21 18:59 06:59 18:59 Intake Total 50 Output Total 950 600 Balance -950 -600 50 Intake: IV 50 Cefepime 1 gm In Sodium 50 Chloride 0.9% 50 ml @ 12. 5 mls/hr IVPB Q12HR [facility] Rx#:[id number] Output: Urine 950 600 Straight 950 600 Other: # Bowel Movements 2 - Labs CBC & Chem 7: 05/16/21 07:33 05/16/21 07:33 Labs: Abnormal Lab Results - Last 24 Hours (Table) 05/16/21 05/16/21 Range/Units 07:33 07:33 Neutrophils # 9.0 H (1.3-7.7) k/uL Lymphocytes # 0.4 L (1.0-4.8) k/uL Sodium 131 L (137-145) mmol/L Chloride 83 L (98-107) mmol/L Carbon Dioxide 43 H* (22-30) mmol/L BUN 21 H (9-20) mg/dL Creatinine 0.29 L (0.66-1.25) mg/dL Glucose 196 H (74-99) mg/dL Microbiology - Last 24 Hours (Table) 05/14/21 19:35 Gram Stain - Preliminary Sputum Sputum Culture - Preliminary Gram Neg Bacilli 05/11/21 22:03 Blood Culture - Preliminary Blood No Growth after 96 hours 05/11/21 22:18 Blood Culture - Preliminary Blood No Growth after 96 hours
[2021-05-16] MEDS: LEVOFLOXACIN 500 MG TAB PO SCH (15:27)
[2021-05-16 16:46] LABS: Glucose,Whole Blood 212 mg/dL (75-99)
[2021-05-16] MEDS: TAMSULOSIN 0.4 MG CAP.ER.24H PO SCH (17:05)
[2021-05-16 19:51] LABS: Glucose,Whole Blood 249 mg/dL (75-99)
[2021-05-16] MEDS: MIRTAZAPINE 15 MG TAB PO SCH (20:33)
[2021-05-16] MEDS: APIXABAN 5 MG TAB PO SCH (20:34)
[2021-05-17 06:08] LABS: Glucose,Whole Blood 172 mg/dL (75-99)
[2021-05-17] MEDS: INSULIN ASPART (NovoLOG) 100 UNIT/ML VIAL SQ SCH ×4 (06:25→20:42)
[2021-05-17] MEDS: methylPREDNISolone SOD SUCCI 125 MG/2 ML VIAL IV SCH ×4 (06:25→22:41)
[2021-05-17] MEDS: UMECLIDIN BL INHALATION SCH (08:42)
[2021-05-17] MEDS: VILANTER INHALATION SCH (08:42)
[2021-05-17] MEDS: ALBUTEROL NEBULIZED 2.5 MG/3 ML INHALATION SCH ×4 (08:42→19:35)
[2021-05-17] MEDS: FLUTICASONE INHALATION SCH (08:42)
[2021-05-17] MEDS: APIXABAN 5 MG TAB PO SCH ×2 (09:08→20:42)
[2021-05-17] MEDS: FAMOTIDINE 20 MG TAB PO SCH (09:09)
[2021-05-17] MEDS: SERTRALINE 50 MG TAB PO SCH (09:10)
[2021-05-17] MEDS: DILTIAZEM CD 180 MG CAP.ER.24H PO SCH (09:10)
[2021-05-17] MEDS: LORATADINE 10 MG TAB PO SCH (09:10)
[2021-05-17] MEDS: CEFEPIME 1 GM in SODIUM CHLORIDE 0.9% 50 ML IVPB SCH ×2 (09:10→20:41)
[2021-05-17] MEDS ORDERED: FUROSEMIDE 10 MG/ML 4 ML VIAL IV STA (10:09)
--- NOTE | 2021-05-17 10:30 | P.PN ---
Subjective This is a pleasant 55 years old male with past medical history of hypertension, COPD secondary to alpha-1 antitrypsin deficiency, pancreatitis and atrial fibrillation on Eliquis. His survey researcher is Dr. Gaytan Presents because of one-day of dyspnea cough and green phlegm for the last couple days with no chest pain No GI or urinary symptoms. He denies smoking, alcohol or illicit drugs He's on 4 L oxygen via nasal cannula at home and 20 mg of prednisone daily. He is currently saturating 90-97% on 6 L oxygen via nasal cannula, and afebrile and dressed vitals are stable Labs showing mild leukocytosis of 12.9 K, sodium 123, his sodium went baseline is ranging 126-135 potassium 6.0, creatinine 0.18. Troponin are negative 3 at 0.018, less than 0.012 and less than 0.012. And coronavirus not detected. Chest x-ray showing increased mild opacity may represent atelectasis or infiltrate, chronic micronodular T EKG showing atrial flutter with a 421 A-V block conduction and a rate of 82, QTC 411 Chest x-ray showed increased mild opacity may represent atelectasis or infiltrate In the emergency room he was started on ceftriaxone and Zithromax, Solu-Medrol 40 mg and her symptom IV fluids On admission pulmonary team were consulted 05/13/21 Patient oxygen requirement now at 4 L/m which is his baseline at home however is still tachypneic. He looks lethargic and withdrawn in bed mostly related to his dyspnea. No significant chest pain or coughing. Other vitals are stable. Labs improvement with WBC back to normal. Sodium improved to 1:30 Today he has CTA of the chest was showing no PE, moderate emphysema with advanced COPD and widespread bronchiectasis with acute bronchitis and right basal pneumonia. Echocardiogram was suspicious for a mass in the IVC next to our a however this was not mentioned in the CTA, besides blade boner on the case Pulmonary consult following patient closely TobraDex was his wish to cefepime and Levaquin for hospital-acquired pneumonia. He is also on Solu-Medrol 60 mg on home dose of Polycose 05/14/2021 He is significantly less tachypneic compared to yesterday. He is at baseline of 4 L/m of oxygen similar to yesterday. He is using his breathing machine overnight. Other than that he is hemodynamically stable, labs showing mild leukocytosis while he is on steroids. Yesterday he was started on cefepime and Levaquin, secondary to right lower lobe pneumonia suspected on CT of the chest. howevercalcitonin came back negative today at 0.06. So lower the dose of cefepime to 1 g twice a day. Is on Solu- Medrol 60 mg as well as home dose of Eliquis. For his A. fib 05/15/2021 Patient. This morning he was attended and a-team was called, it turns out he has CO2 retention and improved with BiPAP setting of 08/08 and FiO2 of 35% to keep oxygen saturating more than 88%. After BiPAP placement his back to basic mentation. He was fully awake and oriented to time, place and person. He is o rdered and surrounded. However because of BiPAP was switched his oral medication to IV or subcutaneous included Lovenox instead of Eliquis and IV Levaquin. Also he has some urinary retention which is been going on at home with straight cath. No need for urinalysis as he is already on broad-spectrum antibiotics. Flomax has been added. His labs looks stable with WBC is 10.9, sodium 131 and CO2 45. He remains on cefepime and Levaquin as well as Solu-Medrol 60 mg of subcutaneous Lovenox 60 mg twice a day therapeutic dose 05/16/2021 Patient today this morning he was doing better, his breathing was quite correct than the last couple days. He still needed to use his BiPAP during the night however in the morning is back to 4-5 L of oxygen nasal. His breathing looks easier and chest x-ray was showing critical nodular infiltrates bilaterally with hyperinflated COPD chest over when I review of the chest x-ray by myself and shows improvement compared to one from 05/12. However later on and a-team was called because of tachycardia up to 160 secondary to a flutter/fib, he was started on Cardizem drip and metoprolol 25 mg daily and transferred to select units Also he has evidence of urinary retention, recurrent Dr. him in the morning he preferred to do straight cath only, Flomax was started, however during a-team Mcgill catheter was placed 05/17/2021 Patient is breathing easier today, he is on 2 L oxygen via nasal cannula with saturation of 95%. Other vitals are stable, afebrile. Also heart rate is controlled today on 90 bpm while he is off Cardizem drip His labs are stable with normal WBC at 8.9, sodium stable at 131 and CO2 and 43 coming down. He is metoprolol was switched to Cardizem 360 mg, his TSH is low at 0.3 and T4 slightly low at 0.59, most likely sick euthyroid. His sputum culture is growing gram-negative bacilli and [place] albicans. He is currently continued on cefepime and oral Levaquin, anticoagulation and switched back to his home dose of Eliquis. He is on Solu-Medrol 60 mg. Mcgill catheter is still in place, explained to the patient importance of keeping of the flow of urine going otherwise he will be at risk of renal failure (Mcgill catheter was initially placed yesterday during the a-team ) Objective - Vital Signs Vital signs: Vital Signs Temp 97.4 F L 05/17/21 09:05 Pulse 91 05/17/21 09:05 Resp 19 05/17/21 09:05 BP 137/86 05/17/21 09:05 Pulse Ox 95 05/17/21 09:05 Intake & Output 05/16/21 05/17/21 05/17/21 18:59 06:59 18:59 Intake Total 290 240 Output Total 2225 Balance 290 -2225 240 Weight 65.8 kg Intake: IV 50 Cefepime 1 gm In Sodium 50 Chloride 0.9% 50 ml @ 12. 5 mls/hr IVPB Q12HR COUNT INCLUDES THE [facility] Rx#:[id number] Oral 240 240 Output: Urine 2225 Other: Voiding Method Indwelling Catheter Indwelling Catheter - Exam GENERAL: The patient is alert and oriented x3, not in any acute distress. Well developed, well nourished. HEENT: Pupils are round and equally reacting to light. EOMI. No scleral icterus. No conjunctival pallor. Normocephalic, atraumatic. No pharyngeal erythema. No thyromegaly. CARDIOVASCULAR: S1 and S2 present. No murmurs, rubs, or gallops. -PULMONARY: Chest is clear to auscultation, tachypnea with decreased air entry on both sides. No significant wheezing. No crepitation -ABDOMEN: Soft, nontender, nondistended, normoactive bowel sounds. No palpable organomegaly. Mcgill catheter is in place MUSCULOSKELETAL: No joint swelling or deformity. EXTREMITIES: No cyanosis, clubbing, or pedal edema. NEUROLOGICAL: Gross neurological examination did not reveal any focal deficits. SKIN: No rashes. no petechiae. - Labs CBC & Chem 7: 05/16/21 07:33 05/16/21 07:33 Labs: Abnormal Lab Results - Last 24 Hours (Table) 05/16/21 05/16/21 05/16/21 Range/Units 07:33 11:52 16:40 POC Glucose (mg/dL) 316 H 212 H (75-99) mg/dL TSH 0.339 L (0.465-4.680) mIU/L Free T4 0.59 L (0.78-2.19) ng/dL 05/16/21 05/17/21 Range/Units 19:50 06:06 POC Glucose (mg/dL) 249 H 172 H (75-99) mg/dL TSH (0.465-4.680) mIU/L Free T4 (0.78-2.19) ng/dL Microbiology - Last 24 Hours (Table) 05/14/21 19:35 Gram Stain - Preliminary Sputum Sputum Culture - Preliminary Gram Neg Bacilli [place] albicans 05/11/21 22:03 Blood Culture - Preliminary Blood No Growth after 120 hours 05/11/21 22:18 Blood Culture - Preliminary Blood No Growth after 120 hours Assessment and Plan Assessment: A. fib/flutter with RVR, Acute urinary retention status post Mcgill catheter Acute COPD exacerbation, advance to stage with FEV1 of 19%, and widespread bronchiectasis with acute bronchitis and moderate emphysema. Right lower lobe pneumonia secondary to gram-negative bacilli Acute CO2 retention with respiratory acidosis, improved with BiPAP Acute urinary retention status post Mcgill catheter Atrial flutter with 4:1 A-V conduction, cardiology team signed off History of alpha-1 antitrypsin deficiency Hypertension Chronic hyponatremia Chronic atrial fibrillation on Eliquis and raped is controlled. Currently is on a flutter with 4:1 A-V conduction History of pancreatitis Plan: This is a pleasant 55 years old male who presents with acute COPD exacerbation, And atrial flutter With steroids, bronchodilators, oxygen. And continue with antibiotic which are changed to cefepime and Levaquin Follow-up with pulmonary team cardiology consult for recurrent A. fib/flutte continue with Cardizem and Eliquisr Continue with BiPAP at night Continue Mcgill catheter and Flomax. Labs and medication were reviewed.. Continue same treatment. Continue with symptomatic treatment. Resume home medication. Monitor lytes and vitals. DVT and GI prophylaxis. Further recommendations depends on the clinical course of the patient DVT prophylaxis:Eliquis GI Prophylaxis: Pepcid Prognosis is guarded
[2021-05-17] MEDS: COLCHICINE 0.6 MG EACH PO SCH ×2 (11:13→20:42)
[2021-05-17 11:46] LABS: Glucose,Whole Blood 153 mg/dL (75-99)
--- NOTE | 2021-05-17 13:42 | P.PN ---
Subjective Progress Note Date: 05/17/21 Principal diagnosis: Shortness of breath 55-year-old white male patient with history of severe COPD/emphysema, alpha-1 antitrypsin deficiency,, with baseline FEV1 of 19% of predicted and severe diffusion abnormality of 40% of predicted. Patient was recently hospitalized 10/27/2020 through 11/01/2020 and later on hospitalized between 11/23/2020 and 12/01/2020 for acute exacerbation of severe COPD. He is on nebulized DuoNeb, Trelegy Ellipta [phone] one puff inhalation daily. The patient also has a a a AVAPS machine at home but utilizes for chronic hypercapnic respiratory failure and recurrent COPD exacerbation. Patient is an ex-smoker, however has not smoked 1 year, prior to that smoked for 36 years pack a day, in addition had smoked marijuana. His other medical history hypertension, his blood pressure medication had to be by his primary care physician Dr. Juan C Gifford furthermore, worked up this patient for endobronchial valve insertion/lung volume reduction a nd as part of his workup, he underwent a high resolution computed tomography scan of the chest and this was consistent with COPD and he underwent a blood gas that showed significant CO2 retention with a pCO2 of 75 and a pH of 7.4 and a pO2 of 44 and this was on room air oxygen. Based on his underlying CO2 retention, he was essentially got disqualified for endobronchial valve insertion. I was coordinating all this work through this patient and [facility]. Based on all this, the skin is a case of advanced, and states COPD with recurrent hospitalization. The most recent hospitalization for this patient was an 03/27/2021 and the patient was discharged home on 03/31/2021. He is a nonsmoker. He presented back to the hospital because of worsening shortness of breath. He denied having any smoking history. He was taking prednisone 20 mg by mouth daily in addition to other maintenance stop the medications. I'm not absolutely sure the patient was still using his AV APS machine. The patient was placed on 6 L about 2 by nasal cannula to bring his saturation above 90%. White cell count was at 12.9. Sodium level was 123. Troponins 3 has been 0.01 and COVID-19 testing was negative. Chest x-ray showed hyperinflation and diffuse emphysema. EKG showed atrial flutter rhythm. No altered mentation. No pleurisy. No hemoptysis. No chest pain. She was given IV fluids. Sodium level improved from 123 at baseline is up to 1:30. Serum bicarb is above 40. Creatinine is at 0.4 with a BUN of 11. White cell count is at 7.39. On today's evaluation on 05/13/2021 patient is seen in follow-up on medical surgical floor. He is resting comfortably in bed, appears to be less dyspneic although he states his breathing is about the same, however not worsened since admission. Breathing comfortably, he is currently on 4 L of oxygen, his pulse ox is 97%, his been afebrile overnight, lung sounds are extremely diminished, without rhonchi or wheezing. Abiotic in the form of Rocephin and azithromycin in the emergency department for possibility of underlying pneumonia. Patient also continues on IV Cipro medical 60 mg every 6 hours, the emergency department he was in a flutter with 421 conduction, his heart rate is controlled, he is on Eliquis. His brought his AVAPS machine in today. Patient is on automatic settings, he is very compliant with that, he wears it every night at home. Today's labs have been reviewed, his white blood cell count is improved and is down to 7.39, hemoglobin is 13.5, his serum sodium is improving and is up to 1:30, potassium is 5.3, CO2 is greater than 40, and patient does have chronic hypoxic and hypercapnic respiratory failure, in addition he was given some diuretics in the emergency department, he is currently on 0.9 normal saline at a rate of 75 ML per hour. His 3 sets of cardiac troponins were negative. He tested negative for COVID-19. CT chest was ordered and showed no evidence of pulmonary embolism, he did not COPD with moderate emphysema, brought This is, areas of endobronchial plugging, and tree-in-bud opacities. There was also superimposed acute bronchiolitis, and there is josefina consolidation at the posterior right base highly suggestive of pneumonia. In the past patient had sputum cultures positive for pseudomonas At today's evaluation 05/10/2021 patient seen in follow-up on medical surgical floor. He is resting comfortably in bed, currently on 4 L of oxygen, his pulse ox is 96%, afebrile, he did wear his AVAPS machine last night. The patient has Had no acute events overnight, he remains on high-dose IV steroids 60 mg every 6 hours, we switched his antibiotic coverage to Levaquin and cefepime yesterday, he is on nebulized bronchodilators. No hemoptysis, no chest discomfort, lung sounds are extremely diminished, patient is very short of breath with any exertion however this is chronic for him. His white count today is 11.04, hemoglobin is 13, sodium is 135, potassium is 4.8, chloride is 86, CO2 is greater than 40, B1 is 12, creatinine is 0.3. Pro-calcitonin level was 0.06 On today's evaluation on 05/15/2021 patient seen in follow-up on medical surgical floor. This morning patient was noted to be more lethargic, poorly responsive, and a rapid response team was called for evaluation. Apparently last night he did not wear his home AVAPS, and this morning he was noted to be more confused, more ALLERGIC, and he had stooled on himself. His AVAPS device mask does not fit him well anymore, and for that reason patient has not been wearing it consistently. Patient has advanced stage IV COPD, with chronic hypoxic and hypercapnic respiratory failure. He was placed on BiPAP support with pressures of 12 and 6 and FiO2 of 35%, he is currently satting 94%, currently afterward the blood gas was completed showing pO2 of 56, pCO2 of 100, and pH of 7.33, this was done on FiO2 of 32%. Patient is tolerating BiPAP very well, he states he is comfortable on that, and he likes the mask better. He subsequently became a bit more responsive, he is breathing easier. The rest of blood work has been reviewed, showing white blood cell, 10.9, hemoglobin of 14.1, sodium of 131, potassium is 5.0, chloride is 84, CO2 was 45, BUN of 17, creatinine 0.20. His pro calcitonin level was low at 0.06, patient was placed on empiric antibiotics in the form of cefepime and Levaquin for possibility of COPD, and tracheobronchitis. He is on IV Solu-Medrol 60 mg every 6 hours and nebulized bronchodilators On today's evaluation on 05/16/2021 patient is being transferred to selective care unit related to Isabella dick with RVR, patient has been started on Cardizem infusion which is currently running at 5 mg per hour, he did wear BiPAP support last night with pressures of 12/6 and FiO2 of 32%. Tolerated it very well, he is currently back on 5 L per nasal cannula, breathing comfortably, other than A. fib with RVR, other vital signs have been stable, his been afebrile, blood pressure is been stable. His chest x-ray today shows reticulonodular infiltrates, hyperinflation. Patient remains on a combination of Levaquin and cefepime, pro calcitonin level was low, he is not coughing up significant amount of secretions, he remains on IV Solu-Medrol 60 mg every 6 hours, today's labs have been reviewed, his white blood cell count is 9.8, hemoglobin is 13.8, later count is 302, sodium is 131, potassium is 4.5, chloride is 83, CO2 is 43, B1 is 21, creatinine is 0.29. on 05/17/2021 patient seen in follow-up on [facility] care floor. he is up in the chair today, breathing comfortably, 4 L of oxygen with pulse ox of 94%. he were the BiPAP support last night. vital signs have been stable, his been afebrile, his breathing comfortably, he remains on a combination of Levaquin and cefepime, his sputum culture still pending, it did show gram-negative bacilli, and Carolina albicans. today's labs are pending for now. No complaints of chest pain, no hemoptysis, his [place] from 05/13/2021 was negative at 0.06. CTA chest showed no evidence of pulmonary embolism, it did show COPD with moderate emphysema, and widespread bronchiectasis and areas of endobronchial plugging. There was new and consolidation at the posterior right base that was suggestive of pneumonia, and pericardial calcifications with prior pericarditis were noted. However echocardiogram showed preserved LV function with EF of 55%. mild MR and mild TR. patient denies any chest pain, he is on Eliquis 5 mg twice a day for A. fib with RVR. Objective - Vital Signs Vital signs: Vital Signs Temp 97.9 F 05/17/21 11:11 Pulse 92 05/17/21 12:39 Resp 20 05/17/21 11:11 BP 126/81 05/17/21 11:11 Pulse Ox 94 L 05/17/21 11:11 Intake & Output 05/16/21 05/17/21 05/17/21 18:59 06:59 18:59 Intake Total 290 240 Output Total 2225 450 Balance 290 -2225 -210 Weight 65.8 kg Intake: IV 50 Cefepime 1 gm In Sodium 50 Chloride 0.9% 50 ml @ 12. 5 mls/hr IVPB Q12HR [facility] Rx#:[id number] Oral 240 240 Output: Urine 2225 450 Other: Voiding Method Indwelling Catheter Indwelling Catheter - Exam GENERAL EXAM: Alert, very pleasant, 55-year-old white male, up in the chair, currently on 4 L of oxygen, resting comfortably, with pulse ox of 94% comfortable in no apparent distress. HEAD: Normocephalic/atraumatic. EYES: Normal reaction of pupils, equal size. Conjunctiva pink, sclera white. NOSE: Clear with pink turbinates. THROAT: No erythema or exudates. NECK: No masses, no JVD, no thyroid enlargement, no adenopathy. CHEST: No chest wall deformity. Symmetrical expansion. LUNGS: Equal air entry with diminished breath sounds bilaterally, and minimal crackles at the right base CVS: Regular rate and rhythm, normal S1 and S2, no gallops, no murmurs, no rubs ABDOMEN: Soft, nontender. No hepatosplenomegaly, normal bowel sounds, no guarding or rigidity. EXTREMITIES: No clubbing, no edema, no cyanosis, 2+ pulses and upper and lower extremities. MUSCULOSKELETAL: Muscle strength and tone normal. SPINE: No scoliosis or deformity SKIN: No rashes CENTRAL NERVOUS SYSTEM: Alert and oriented -3. No focal deficits, tone is normal in all 4 extremities. PSYCHIATRIC: Alert and oriented -3. Appropriate affect. Intact judgment and insight. - Labs CBC & Chem 7: 05/16/21 07:33 05/16/21 07:33 Labs: Abnormal Lab Results - Last 24 Hours (Table) 05/16/21 05/16/21 05/16/21 Range/Units 07:33 16:40 19:50 POC Glucose (mg/dL) 212 H 249 H (75-99) mg/dL Free T4 0.59 L (0.78-2.19) ng/dL 05/17/21 05/17/21 Range/Units 06:06 11:44 POC Glucose (mg/dL) 172 H 153 H (75-99) mg/dL Free T4 (0.78-2.19) ng/dL Microbiology - Last 24 Hours (Table) 05/14/21 19:35 Gram Stain - Preliminary Sputum Sputum Culture - Preliminary Gram Neg Bacilli Carolina albicans 05/11/21 22:03 Blood Culture - Preliminary Blood No Growth after 120 hours 05/11/21 22:18 Blood Culture - Preliminary Blood No Growth after 120 hours Assessment and Plan Plan: #1. Acute on chronic hypoxic and hypercapnic respiratory failure related to acute exacerbation of COPD and right lower lobe pneumonia . COVID 19 was negative. Patient has advanced lung disease. The patient has had recurrent COPD exacerbations. His current chest x-ray showing some increased interstitial markings bilaterally. The patient has had recurrent hospitalization the patient has been hospitalized almost every 2 months for ongoing COPD related complications. For now, denies any signs of an infection. He has limited on Trelegy Ellipta one inhalation a day, prednisone 20 mg by mouth daily and albuterol neb regimen sound the clock. He also has a a AVAPS machine at home which probably is not using on a regular basis. He is a nonsmoker. His baseline FEV1 is noted of 19% of predicted. Extremely poor baseline performance and functional status. Also looks cachectic and malnourished. #2. Severe COPD, baseline FEV1 of 19% of predicted, stage IV COPD, on home oxygen at 4 L . The patient is a chronic CO2 retainer. He was not found to be a candidate for endobronchial Mcalister valve insertion because of chronic hypercapnic respiratory failure. #3. Alpha-1 anti-trypsin efficiency #4. 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 Hypertension #6. PAF/flutter current rhythm is sinus and the patient is on long-term anticoagulation with Eliquis.. The patient was in a flutter at the time of ad mission was 4:1 conduction block and heart rate is improved right now and is under better control. 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 His current heart rate is in the mid 80s. #7. borderline concentric LVH/hypertensive heart disease with a preserved LV function and ejection fraction of 6065%, mild pulmonary hypertension #8. previous sputum colonization/infection with pseudomonas aeruginosa based on the sputum analysis that was done on 11/24/2020 and 03/02/2021. #9. Episode of A. fib with RVR, patient is currently started on Cardizem infusion at 5 mg per hour, will be transferred to selective care unit, he is already on Eliquis for history of paroxysmal atrial fibrillation #10. pericardial calcifications compatible with prior pericarditis noted on the CTA chest, with possibility of restrictive pericarditis. Plan: continue current antibiotics Continue steroids and nebulized bronchodilators Vital signs are stable Diuretics per cardiology Currently heart rate is better controlled Continue oral anticoagulation and rate control medications per cardiology Will await final sputum cultures Clinically patient is feeling a little better today We'll continue to follow I performed a history & physical examination of the patient and discussed their management with my nurse practitioner, Elida Cardoso. I reviewed the nurse practitioner's note and agree with the documented findings and plan of care. Lung sounds are positive for crackles at the right base throughout the lung miles. The findings and the impression was discussed with the patient. I at test to the documentation by the nurse practitioner. Time with Patient: Less than 30
--- NOTE | 2021-05-17 13:45 | P.PN ---
Subjective This is a pleasant 55-year-old male past medical history significant for paroxysmal atrial fibrillation/flutter, COPD, hypertension and alpha-1 antitrypsin. He follows in the office with Dr. Lebron. He was initially seen and evaluated and we have been asked to see him again in consultation secondary to recurrent atrial flutter with rapid ventricular rates. Other than being short of breath he doesn't have any significant symptoms. He thinks he may have felt a little dizzy but isn't even very positive about that. He denies palpit ations or chest pain. Blood pressure 122/82 heart rate 91 afebrile maintaining oxygen saturation on nasal cannula. Laboratory data reviewed, CBC unremarkable, sodium 131, potassium 4.5, creatinine 0.29. Currently maintained on Cardizem infusion and Toprol 25 mg daily. 05/17/2021 Pt seen and examined sitting up in bed in no acute distress. He feels like his breathing is back to baseline. He denies chest pain or dizziness. Echo images reviewed by Dr. Chen and he is concerned for possible constrictive pericarditis. Blood pressure 126/81 heart rate 92 afebrile maintaining oxygen saturation on nasal cannula. GENERAL: Well-appearing, well-nourished and in no acute distress. NECK: Supple without JVD or thyromegaly. LUNGS: Breath sounds clear to auscultation bilaterally. Respiration equal and unlabored. No wheezes, rales or rhonchi. HEART: Irregular rate and rhythm without murmurs, rubs or gallops. S1 and S2 heard. EXTREMITIES: Normal range of motion, 1+ bilateral lower extremity pitting edema. No clubbing or cyanosis. Peripheral pulses intact. ASSESSMENT Paroxysmal atrial tachycardia/atrial flutter Hypertension Acute exacerbation of COPD Alpha-1 antitrypsin deficiency Former nicotine Concern for possible constrictive pericarditis PLAN Add colchicine 0.6 mg BID. Repeat limited echo to assess E:E prime and respiratory variations. Give one dose of IV lasix for lower extremity swelling. Further recommendations to follow based upon clinical course. Nurse Practitioner note has been reviewed, I agree with a documented findings and plan of care. Patient was seen and examined. Objective - Vital Signs Vital signs: Vital Signs Temp 97.9 F 05/17/21 11:11 Pulse 92 05/17/21 12:39 Resp 20 05/17/21 11:11 BP 126/81 09/14/21 11:11 Pulse Ox 94 L 05/17/21 11:11 Intake & Output 05/16/21 05/17/21 05/17/21 18:59 06:59 18:59 Intake Total 290 240 Output Total 2225 450 Balance 290 -2225 -210 Weight 65.8 kg Intake: IV 50 Cefepime 1 gm In Sodium 50 Chloride 0.9% 50 ml @ 12. 5 mls/hr IVPB Q12HR [facility] Rx#:[id number] Oral 240 240 Output: Urine 2225 450 Other: Voiding Method Indwelling Catheter Indwelling Catheter - Labs CBC & Chem 7: 05/16/21 07:33 05/16/21 07:33 Labs: Abnormal Lab Results - Last 24 Hours (Table) 05/16/21 05/16/21 05/16/21 Range/Units 07:33 16:40 19:50 POC Glucose (mg/dL) 212 H 249 H (75-99) mg/dL Free T4 0.59 L (0.78-2.19) ng/dL 05/17/21 05/17/21 Range/Units 06:06 11:44 POC Glucose (mg/dL) 172 H 153 H (75-99) mg/dL Free T4 (0.78-2.19) ng/dL Microbiology - Last 24 Hours (Table) 05/14/21 19:35 Gram Stain - Preliminary Sputum Sputum Culture - Preliminary Gram Neg Bacilli Carolina albicans 05/11/21 22:03 Blood Culture - Preliminary Blood No Growth after 120 hours 05/11/21 22:18 Blood Culture - Preliminary Blood No Growth after 120 hours
[2021-05-17] MEDS: ALPRAZolam 0.5 MG TAB PO PRN ×2 (15:24→22:41)
[2021-05-17] MEDS: LEVOFLOXACIN 500 MG TAB PO SCH (15:25)
[2021-05-17 16:40] LABS: Glucose,Whole Blood 209 mg/dL (75-99)
[2021-05-17] MEDS: TAMSULOSIN 0.4 MG CAP.ER.24H PO SCH (17:48)
[2021-05-17 19:38] LABS: Glucose,Whole Blood 272 mg/dL (75-99)
[2021-05-17] MEDS: MIRTAZAPINE 15 MG TAB PO SCH (20:41)
[2021-05-18 05:52] LABS: Glucose,Whole Blood 190 mg/dL (75-99)
[2021-05-18] MEDS: methylPREDNISolone SOD SUCCI 125 MG/2 ML VIAL IV SCH ×4 (06:03→23:29)
[2021-05-18] MEDS: INSULIN ASPART (NovoLOG) 100 UNIT/ML VIAL SQ SCH ×4 (06:04→20:22)
[2021-05-18] MEDS: ALBUTEROL NEBULIZED 2.5 MG/3 ML INHALATION SCH ×4 (07:24→19:22)
[2021-05-18] MEDS: FLUTICASONE INHALATION SCH (07:55)
[2021-05-18] MEDS: VILANTER INHALATION SCH (07:55)
[2021-05-18] MEDS: UMECLIDIN BL INHALATION SCH (07:55)
[2021-05-18 08:06] LABS: African American GFR (CKD) >90 (>60 ml/min/1.73 sqM); Blood Urea Nitrogen 23 mg/dL (9-20); Calcium 8.9 mg/dL (8.4-10.2); Chloride 82 mmol/L (98-107); Glucose 235 mg/dL (74-99); Non-African American GFR(CKD) >90 (>60 ml/min/1.73 sqM); Potassium 4.4 mmol/L (3.5-5.1); Sodium 128 mmol/L (137-145)
[2021-05-18 08:48] LABS: Anion Gap 11 mmol/L; Carbon Dioxide 35 mmol/L (22-30)
[2021-05-18 09:04] LABS: T4, Free (Free Thyroxine) 0.62 ng/dL (0.78-2.19)
[2021-05-18] MEDS ORDERED: FUROSEMIDE 10 MG/ML 4 ML VIAL IV STA (09:06)
[2021-05-18] MEDS: CEFEPIME 1 GM in SODIUM CHLORIDE 0.9% 50 ML IVPB SCH (09:56)
[2021-05-18] MEDS: DILTIAZEM CD 180 MG CAP.ER.24H PO SCH (09:57)
[2021-05-18] MEDS: SERTRALINE 50 MG TAB PO SCH (09:57)
[2021-05-18] MEDS: APIXABAN 5 MG TAB PO SCH (09:57)
[2021-05-18] MEDS: COLCHICINE 0.6 MG EACH PO SCH ×2 (09:57→10:41)
[2021-05-18] MEDS: FAMOTIDINE 20 MG TAB PO SCH (09:58)
[2021-05-18] MEDS: LORATADINE 10 MG TAB PO SCH (09:58)
--- NOTE | 2021-05-18 11:25 | ECHOF ---
Referral Reason:e:e prime and respiratory variation mitral tricusp MEASUREMENTS -------- HEIGHT: 182.9 cm WEIGHT: 65.8 kg BP: FINDINGS -------- Respiratory variation across the mitral and tricuspid valve was noted. Also septal bounce was noted. Limited Study There is no pericardial effusion. CONCLUSIONS -------- 1. Respiratory variation across the mitral and tricuspid valve was noted. Also septal bounce was note d. ADJUSTER ELECTRICAL CONTACTS: Lili Lozada [facility]
--- NOTE | 2021-05-18 11:26 | P.PN ---
Subjective Progress Note Date: 05/18/21 Principal diagnosis: Shortness of breath 55-year-old white male patient with history of severe COPD/emphysema, alpha-1 antitrypsin deficiency,, with baseline FEV1 of 19% of predicted and severe diffusion abnormality of 40% of predicted. Patient was recently hospitalized 10/27/2020 through 11/01/2020 and later on hospitalized between 11/23/2020 and 12/01/2020 for acute exacerbation of severe COPD. He is on nebulized DuoNeb, Trelegy Ellipta [phone] one puff inhalation daily. The patient also has a a a AVAPS machine at home but utilizes for chronic hypercapnic respiratory failure and recurrent COPD exacerbation. Patient is an ex-smoker, however has not smoked 1 year, prior to that smoked for 36 years pack a day, in addition had smoked marijuana. His other medical history hypertension, his blood pressure medication had to be by his primary care physician Dr. Juan C Gifford furthermore, worked up this patient for endobronchial valve insertion/lung volume reduction a nd as part of his workup, he underwent a high resolution computed tomography scan of the chest and this was consistent with COPD and he underwent a blood gas that showed significant CO2 retention with a pCO2 of 75 and a pH of 7.4 and a pO2 of 44 and this was on room air oxygen. Based on his underlying CO2 retention, he was essentially got disqualified for endobronchial valve insertion. I was coordinating all this work through this patient and [facility]. Based on all this, the skin is a case of advanced, and states COPD with recurrent hospitalization. The most recent hospitalization for this patient was an 03/27/2021 and the patient was discharged home on 03/31/2021. He is a nonsmoker. He presented back to the hospital because of worsening shortness of breath. He denied having any smoking history. He was taking prednisone 20 mg by mouth daily in addition to other maintenance stop the medications. I'm not absolutely sure the patient was still using his AV APS machine. The patient was placed on 6 L about 2 by nasal cannula to bring his saturation above 90%. White cell count was at 12.9. Sodium level was 123. Troponins 3 has been 0.01 and COVID-19 testing was negative. Chest x-ray showed hyperinflation and diffuse emphysema. EKG showed atrial flutter rhythm. No altered mentation. No pleurisy. No hemoptysis. No chest pain. She was given IV fluids. Sodium level improved from 123 at baseline is up to 1:30. Serum bicarb is above 40. Creatinine is at 0.4 with a BUN of 11. White cell count is at 7.39. On today's evaluation on 05/13/2021 patient is seen in follow-up on medical surgical floor. He is resting comfortably in bed, appears to be less dyspneic although he states his breathing is about the same, however not worsened since admission. Breathing comfortably, he is currently on 4 L of oxygen, his pulse ox is 97%, his been afebrile overnight, lung sounds are extremely diminished, without rhonchi or wheezing. Abiotic in the form of Rocephin and azithromycin in the emergency department for possibility of underlying pneumonia. Patient also continues on IV Cipro medical 60 mg every 6 hours, the emergency department he was in a flutter with 421 conduction, his heart rate is controlled, he is on Eliquis. His brought his AVAPS machine in today. Patient is on automatic settings, he is very compliant with that, he wears it every night at home. Today's labs have been reviewed, his white blood cell count is improved and is down to 7.39, hemoglobin is 13.5, his serum sodium is improving and is up to 1:30, potassium is 5.3, CO2 is greater than 40, and patient does have chronic hypoxic and hypercapnic respiratory failure, in addition he was given some diuretics in the emergency department, he is currently on 0.9 normal saline at a rate of 75 ML per hour. His 3 sets of cardiac troponins were negative. He tested negative for COVID-19. CT chest was ordered and showed no evidence of pulmonary embolism, he did not COPD with moderate emphysema, brought This is, areas of endobronchial plugging, and tree-in-bud opacities. There was also superimposed acute bronchiolitis, and there is josefina consolidation at the posterior right base highly suggestive of pneumonia. In the past patient had sputum cultures positive for pseudomonas At today's evaluation 05/10/2021 patient seen in follow-up on medical surgical floor. He is resting comfortably in bed, currently on 4 L of oxygen, his pulse ox is 96%, afebrile, he did wear his AVAPS machine last night. The patient has Had no acute events overnight, he remains on high-dose IV steroids 60 mg every 6 hours, we switched his antibiotic coverage to Levaquin and cefepime yesterday, he is on nebulized bronchodilators. No hemoptysis, no chest discomfort, lung sounds are extremely diminished, patient is very short of breath with any exertion however this is chronic for him. His white count today is 11.04, hemoglobin is 13, sodium is 135, potassium is 4.8, chloride is 86, CO2 is greater than 40, B1 is 12, creatinine is 0.3. Pro-calcitonin level was 0.06 On today's evaluation on 05/15/2021 patient seen in follow-up on medical surgical floor. This morning patient was noted to be more lethargic, poorly responsive, and a rapid response team was called for evaluation. Apparently last night he did not wear his home AVAPS, and this morning he was noted to be more confused, more ALLERGIC, and he had stooled on himself. His AVAPS device mask does not fit him well anymore, and for that reason patient has not been wearing it consistently. Patient has advanced stage IV COPD, with chronic hypoxic and hypercapnic respiratory failure. He was placed on BiPAP support with pressures of 12 and 6 and FiO2 of 35%, he is currently satting 94%, currently afterward the blood gas was completed showing pO2 of 56, pCO2 of 100, and pH of 7.33, this was done on FiO2 of 32%. Patient is tolerating BiPAP very well, he states he is comfortable on that, and he likes the mask better. He subsequently became a bit more responsive, he is breathing easier. The rest of blood work has been reviewed, showing white blood cell, 10.9, hemoglobin of 14.1, sodium of 131, potassium is 5.0, chloride is 84, CO2 was 45, BUN of 17, creatinine 0.20. His pro calcitonin level was low at 0.06, patient was placed on empiric antibiotics in the form of cefepime and Levaquin for possibility of COPD, and tracheobronchitis. He is on IV Solu-Medrol 60 mg every 6 hours and nebulized bronchodilators On today's evaluation on 05/16/2021 patient is being transferred to selective care unit related to Isabella dick with RVR, patient has been started on Cardizem infusion which is currently running at 5 mg per hour, he did wear BiPAP support last night with pressures of 12/6 and FiO2 of 32%. Tolerated it very well, he is currently back on 5 L per nasal cannula, breathing comfortably, other than A. fib with RVR, other vital signs have been stable, his been afebrile, blood pressure is been stable. His chest x-ray today shows reticulonodular infiltrates, hyperinflation. Patient remains on a combination of Levaquin and cefepime, pro calcitonin level was low, he is not coughing up significant amount of secretions, he remains on IV Solu-Medrol 60 mg every 6 hours, today's labs have been reviewed, his white blood cell count is 9.8, hemoglobin is 13.8, later count is 302, sodium is 131, potassium is 4.5, chloride is 83, CO2 is 43, B1 is 21, creatinine is 0.29. on 05/17/2021 patient seen in follow-up on Selective care floor. he is up in the chair today, breathing comfortably, 4 L of oxygen with pulse ox of 94%. he were the BiPAP support last night. vital signs have been stable, his been afebrile, his breathing comfortably, he remains on a combination of Levaquin and cefepime, his sputum culture still pending, it did show gram-negative bacilli, and [place] albicans. today's labs are pending for now. No complaints of chest pain, no hemoptysis, his [place] from 05/13/2021 was negative at 0.06. CTA chest showed no evidence of pulmonary embolism, it did show COPD with moderate emphysema, and widespread bronchiectasis and areas of endobronchial plugging. There was new and consolidation at the posterior right base that was suggestive of pneumonia, and pericardial calcifications with prior pericarditis were noted. However echocardiogram showed preserved LV function with EF of 55%. mild MR and mild TR. patient denies any chest pain, he is on Eliquis 5 mg twice a day for A. fib with RVR. on 05/18/2021 patient is seen in follow-up on selective care unit, his sputum culture finalized with pseudomonas aeruginosa which was resistant to both of the antibiotics that she is on which include cefepime and Levaquin. Clinically patient is doing great, he is awake and alert, oriented 3, appears to be no acute distress, currently on 4 L of oxygen, with a pulse ox of her percent, she is utilizing BiPAP support at night. Afebrile, vital signs have been stable, and a chest x-ray today, today's labs have been reviewed, BNP was completed only, no CBC, sodium is 128, potassium is 4.4, chloride 82, CO2 35, B1 is 23, creatinine 0.29. Patient is receiving intermittent doses of Lasix cardiology. Negative net fluid 1.6 L fluid balance of last 24 hours. Objective - Vital Signs Vital signs: Vital Signs Temp 97.8 F 05/18/21 09:55 Pulse 87 05/18/21 11:21 Resp 18 05/18/21 09:55 BP 120/73 05/18/21 09:55 Pulse Ox 94 L 05/18/21 09:55 Intake & Output 05/17/21 05/18/21 05/18/21 18:59 06:59 18:59 Intake Total 660 118 Output Total 1775 500 Balance -1115 -500 118 Weight 66 kg Intake: Oral 660 118 Output: Urine 1775 500 Other: Voiding Method Urinal Urinal - Exam GENERAL EXAM: Alert, very pleasant, 55-year-old white male, up in the chair, currently on 4 L of oxygen, resting comfortably, with pulse ox of 94% comfortable in no apparent distress. HEAD: Normocephalic/atraumatic. EYES: Normal reaction of pupils, equal size. Conjunctiva pink, sclera white. NOSE: Clear with pink turbinates. THROAT: No erythema or exudates. NECK: No masses, no JVD, no thyroid enlargement, no adenopathy. CHEST: No chest wall deformity. Symmetrical expansion. LUNGS: Equal air entry with diminished breath sounds bilaterally, and minimal crackles at the right base CVS: Regular rate and rhythm, normal S1 and S2, no gallops, no murmurs, no rubs ABDOMEN: Soft, nontender. No hepatosplenomegaly, normal bowel sounds, no guarding or rigidity. EXTREMITIES: No clubbing, no edema, no cyanosis, 2+ pulses and upper and lower extremities. MUSCULOSKELETAL: Muscle strength and tone normal. SPINE: No scoliosis or deformity SKIN: No rashes CENTRAL NERVOUS SYSTEM: Alert and oriented -3. No focal deficits, tone is normal in all 4 extremities. PSYCHIATRIC: Alert and oriented -3. Appropriate affect. Intact judgment and insight. - Labs CBC & Chem 7: 05/16/21 07:33 05/18/21 07:43 Labs: Abnormal Lab Results - Last 24 Hours (Table) 05/17/21 05/17/21 05/17/21 Range/Units 11:44 16:38 19:36 Sodium (137-145) mmol/L Chloride (98-107) mmol/L Carbon Dioxide (22-30) mmol/L BUN (9-20) mg/dL Creatinine (0.66-1.25) mg/dL Glucose (74-99) mg/dL POC Glucose (mg/dL) 153 H 209 H 272 H (75-99) mg/dL TSH (0.465-4.680) mIU/L Free T4 (0.78-2.19) ng/dL 05/18/21 05/18/21 Range/Units 05:40 07:43 Sodium 128 L (137-145) mmol/L Chloride 82 L (98-107) mmol/L Carbon Dioxide 35 H (22-30) mmol/L BUN 23 H (9-20) mg/dL Creatinine 0.29 L (0.66-1.25) mg/dL Glucose 235 H (74-99) mg/dL POC Glucose (mg/dL) 190 H (75-99) mg/dL TSH 0.275 L (0.465-4.680) mIU/L Free T4 0.62 L (0.78-2.19) ng/dL Microbiology - Last 24 Hours (Table) 05/14/21 19:35 Gram Stain - Final Sputum Sputum Culture - Final Pseudomonas aeruginosa [place] albicans 05/11/21 22:03 Blood Culture - Final Blood No Growth after 144 hours 05/11/21 22:18 Blood Culture - Final Blood No Growth after 144 hours Assessment and Plan Plan: #1. Acute on chronic hypoxic and hypercapnic respiratory failure related to acute exacerbation of COPD and right lower lobe pneumonia . COVID 19 was negative. Patient has advanced lung disease. The patient has had recurrent COPD exacerbations. His current chest x-ray showing some increased interstitial markings bilaterally. The patient has had recurrent hospitalization the patient has been hospitalized almost every 2 months for ongoing COPD related complications. For now, denies any signs of an infection. He has limited on Trelegy Ellipta one inhalation a day, prednisone 20 mg by mouth daily and albuterol neb regimen sound the clock. He also has a a AVAPS machine at home which probably is not using on a regular basis. He is a nonsmoker. His baseline FEV1 is noted of 19% of predicted. Extremely poor baseline performance and functional status. Also looks cachectic and malnourished. #2. Severe COPD, baseline FEV1 of 19% of predicted, stage IV COPD, on home oxygen at 4 L . The patient is a chronic CO2 retainer. He was not found to be a candidate for endobronchial [place] valve insertion because of chronic hypercapnic respiratory failure. #3. Alpha-1 anti-trypsin efficiency #4. 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 Hypertension #6. PAF/flutter current rhythm is sinus and the patient is on long-term anticoagulation with Eliquis.. The patient was in a flutter at the time of admission was 4:1 conduction block and heart rate is improved right now and is under better control. 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 His current heart rate is in the mid 80s. #7. borderline concentric LVH/hypertensive heart disease with a preserved LV function and ejection fraction of 6065%, mild pulmonary hypertension #8. previous sputum colonization/infection with pseudomonas aeruginosa based on the sputum analysis that was done on 11/24/2020 and 03/02/2021. #9. Episode of A. fib with RVR, patient is currently started on Cardizem infusion at 5 mg per hour, will be transferred to selective care unit, he is already on Eliquis for history of paroxysmal atrial fibrillation #10. pericardial calcifications compatible with prior pericarditis noted on the CTA chest, with possibility of restrictive pericarditis. #11. Resistant pseudomonas aeruginosa in the sputum cultures, with a resistance to Levaquin and cefepime, patient will be switched to meropenem Plan: Discontinue antibiotic coverage to ertapenem, discontinue Levaquin and cefepime Continue steroids and nebulized bronchodilators Vital signs are stable Diuretics per cardiology Follow electrolytes and renal profile Currently heart rate is better controlled Continue oral anticoagulation and rate control medications per cardiology Obtain follow-up chest x-ray tomorrow Clinically patient is feeling a little better today We'll continue to follow I performed a history & physical examination of the patient and discussed their management with my nurse practitioner, Elida Cardoso. I reviewed the nurse practitioner's note and agree with the documented findings and plan of care. Lung sounds are positive for crackles at the right base throughout the lung miles. The findings and the impression was discussed with the patient. I attest to the documentation by the nurse practitioner. Time with Patient: Less than 30
[2021-05-18 11:40] LABS: Glucose,Whole Blood 390 mg/dL (75-99)
--- NOTE | 2021-05-18 12:09 | P.PN ---
<Valencia Maria - Last Filed: 05/18/21 11:45> Subjective This is a pleasant 55-year-old male past medical history significant for paroxysmal atrial fibrillation/flutter, COPD, hypertension and alpha-1 antitrypsin. He follows in the office with Dr. Lebron. He was initially seen and evaluated and we have been asked to see him again in consultation secondary to recurrent atrial flutter with rapid ventricular rates. Other than being short of breath he doesn't have any significant symptoms. He thinks he may have felt a little dizzy but isn't even very positive about that. He denies palpitations or chest pain. Blood pressure 122/82 heart rate 91 afebrile maintaining oxygen saturation on nasal cannula. Laboratory data reviewed, CBC unremarkable, sodium 131, potassium 4.5, creatinine 0.29. Currently maintained on Cardizem infusion and Toprol 25 mg daily. 05/17/2021 Pt seen and examined sitting up in bed in no acute distress. He feels like his breathing is back to baseline. He denies chest pain or dizziness. Echo images reviewed by Dr. Chen and he is concerned for possible constrictive pericarditis. Blood pressure 126/81 heart rate 92 afebrile maintaining oxygen saturation on nasal cannula. Repeat limited echocardiogram reveals respiratory variation across the mitral and tricuspid valve with a septal bounce noted. He has converted to SR on the monitor. 24-hr urine output 2.2 Liters. Laboratory data reviewed, sodium 128, potassium 4.4, creatinine 0.29. GENERAL: Well-appearing, well-nourished and in no acute distress. NECK: Supple without JVD or thyromegaly. LUNGS: Breath sounds clear to auscultation bilaterally. Respiration equal and unlabored. No wheezes, rales or rhonchi. HEART: Irregular rate and rhythm without murmurs, rubs or gallops. S1 and S2 heard. EXTREMITIES: Normal range of motion, 1+ bilateral lower extremity pitting edema. No clubbing or cyanosis. Peripheral pulses intact. ASSESSMENT Paroxysmal atrial tachycardia/atrial flutter Hypertension Acute exacerbation of COPD Alpha-1 antitrypsin deficiency Former nicotine Concern for possible constrictive pericarditis PLAN Decrease colchicine to 0.6 mg daily. Give another dose of lasix IV now. Lengthy discussion with the patient regarding further diagnosis of constrictive pericarditis. We will discuss with Dr. Lebron proceeding with R/[facility] tomorrow. NPO after midnight tonight. Hold eliquis for probable procedure. Further recommendations to follow based on clinical course. Nurse Practitioner note has been reviewed, I agree with a documented findings and plan of care. Patient was seen and examined. Objective - Vital Signs Vital signs: Vital Signs Temp 97.8 F 05/18/21 09:55 Pulse 87 05/18/21 11:21 Resp 18 05/18/21 09:55 BP 120/73 05/18/21 09:55 Pulse Ox 94 L 05/18/21 09:55 Intake & Output 05/17/21 05/18/21 05/18/21 18:59 06:59 18:59 Intake Total 660 118 Output Total 1775 500 Balance -1115 -500 118 Weight 66 kg Intake: Oral 660 118 Output: Urine 1775 500 Other: Voiding Method Urinal Urinal - Labs CBC & Chem 7: 05/16/21 07:33 05/18/21 07:43 Labs: Abnormal Lab Results - Last 24 Hours (Table) 05/17/21 05/17/21 05/17/21 Range/Units 11:44 16:38 19:36 Sodium (137-145) mmol/L Chloride (98-107) mmol/L Carbon Dioxide (22-30) mmol/L BUN (9-20) mg/dL Creatinine (0.66-1.25) mg/dL Glucose (74-99) mg/dL POC Glucose (mg/dL) 153 H 209 H 272 H (75-99) mg/dL TSH (0.465-4.680) mIU/L Free T4 (0.78-2.19) ng/dL 05/18/21 05/18/21 05/18/21 Range/Units 05:40 07:43 11:39 Sodium 128 L (137-145) mmol/L Chloride 82 L (98-107) mmol/L Carbon Dioxide 35 H (22-30) mmol/L BUN 23 H (9-20) mg/dL Creatinine 0.29 L (0.66-1.25) mg/dL Glucose 235 H (74-99) mg/dL POC Glucose (mg/dL) 190 H 390 H (75-99) mg/dL TSH 0.275 L (0.465-4.680) mIU/L Free T4 0.62 L (0.78-2.19) ng/dL Microbiology - Last 24 Hours (Table) 05/14/21 19:35 Gram Stain - Final Sputum Sputum Culture - Final Pseudomonas aeruginosa [place] albicans 05/11/21 22:03 Blood Culture - Final Blood No Growth after 144 hours 05/11/21 22:18 Blood Culture - Final Blood No Growth after 144 hours <Mayco Chen - Last Filed: 05/19/21 08:09> Subjective Echo with septal bounce and concerning for constrictive pericarditis with what appears to be ventricular interdependence as well as pericardial calcifications on CT. e' on repeat echo with only mild annulus reversus with lateral 14 and m edial 16 which is not diagnostic of constriction. IVC dilated and mild LE edema and crackles. Given significant symptoms and repeat admissions may consider RHC to evaluate if a component of dyspnea related to constriction although majority related to COPD. Objective - Vital Signs Vital signs: Vital Signs Temp 98 F 05/18/21 23:27 Pulse 88 05/19/21 07:33 Resp 20 05/19/21 04:00 BP 132/79 05/19/21 04:00 Pulse Ox 91 L 05/19/21 04:00 Intake & Output 05/18/21 05/19/21 05/19/21 18:59 06:59 18:59 Intake Total 430.5 Output Total 2024 410 Balance -1594.5 -410 Weight 66 kg 67 kg Intake: Intake, IV Titration 12.5 Amount Cefepime 1 gm In Sodium 12.5 Chloride 0.9% 50 ml @ 12. 5 mls/hr IVPB Q12HR [facility] Rx#:[id number] Oral 418 Output: Urine 2024 410 Other: Voiding Method Urinal # Voids 1 - Labs CBC & Chem 7: 05/16/21 07:33 05/19/21 06:01 Labs: Abnormal Lab Results - Last 24 Hours (Table) 05/18/21 05/18/21 05/18/21 Range/Units 07:43 11:39 16:37 Sodium 128 L (137-145) mmol/L Chloride 82 L (98-107) mmol/L Carbon Dioxide 35 H (22-30) mmol/L BUN 23 H (9-20) mg/dL Creatinine 0.29 L (0.66-1.25) mg/dL Glucose 235 H (74-99) mg/dL POC Glucose (mg/dL) 390 H 229 H (75-99) mg/dL TSH 0.275 L (0.465-4.680) mIU/L Free T4 0.62 L (0.78-2.19) ng/dL 05/18/21 05/19/21 05/19/21 Range/Units 20:07 06:01 06:04 Sodium 131 L (137-145) mmol/L Chloride 79 L (98-107) mmol/L Carbon Dioxide 50 H* (22-30) mmol/L BUN 21 H (9-20) mg/dL Creatinine 0.30 L (0.66-1.25) mg/dL Glucose 231 H (74-99) mg/dL POC Glucose (mg/dL) 268 H 214 H (75-99) mg/dL TSH (0.465-4.680) mIU/L Free T4 (0.78-2.19) ng/dL Microbiology - Last 24 Hours (Table) 05/14/21 19:35 Gram Stain - Final Sputum Sputum Culture - Final Pseudomonas aeruginosa [place] albicans
--- NOTE | 2021-05-18 12:32 | CDI ---
Documentation Clarification Form Date: 05/18/2021 12:14:02 PM From: Gabriela Contreras RN CCDS Admit Date: 05/11/2021 07:51:00 PM Patient Name: Mervin Daigle Visit Number: [id number] Discharge Date: ATTENTION: The Clinical Documentation Specialists (CDI) and [facility] Coding Staff appreciate your assistance in clarifying documentation. Please respond to the clarification below the line at the bottom and electronically sign. The CDI & [facility] Coding staff will review the response and follow-up if needed. Please note: Queries are made part of the Legal Health Record. If you have any questions, please contact the author of this message via ITS. Dr. Pavel Mendoza Malnutrition is documented 05/13 - 05/18, Pulmonary progress note, Additional clarification regarding the severity of malnutrition is requested. History/Risk Factors: 55-year-old male presents to the ED with dyspnea, cough and green phlegm for a few days. Medical History: Severe COPD/emphysema, chronic respiratory failure, and alpha- 1 antitrypsin deficiency. 05/12, H&P. Clinical Indicators: Current BMI: 05/18 19.7 Also looks cachectic and malnourished. 05/13 05/18 Pulmonary progress notes. Treatment: 05/12 to current Heart Healthy Diet 05/12 to current Daily Feeding assessment percent consumed. Please clarify the type of malnutrition, if known: [ ] Moderate Protein-Calorie Malnutrition [ ] Severe Protein-Calorie Malnutrition [ ] Other condition, please specify [ ] Unable to Determine (Template Last Revised: November 2020) MTDD
[2021-05-18] MEDS: MEROPENEM 1 GM in SODIUM CHLORIDE 0.9% 100 ML IVPB SCH ×2 (13:07→20:22)
--- NOTE | 2021-05-18 13:52 | P.PN ---
Subjective Progress Note Date: 05/18/21 This is a pleasant 55 years old male with past medical history of hypertension, COPD secondary to alpha-1 antitrypsin deficiency, pancreatitis and atrial fibrillation on Eliquis. His community development director is Dr. Gaytan Presents because of one-day of dyspnea cough and green phlegm for the last couple days with no chest pain No GI or urinary symptoms. He denies smoking, alcohol or illicit drugs He's on 4 L oxygen via nasal cannula at home and 20 mg of prednisone daily. He is currently saturating 90-97% on 6 L oxygen via nasal cannula, and afebrile and dressed vitals are stable Labs showing mild leukocytosis of 12.9 K, sodium 123, his sodium went baseline is ranging 126-135 potassium 6.0, creatinine 0.18. Troponin are negative 3 at 0.018, less than 0.012 and less than 0.012. And coronavirus not detected. Chest x-ray showing increased mild opacity may represent atelectasis or infiltrate, chronic micronodular T EKG showing atrial flutter with a 421 A-V block conduction and a rate of 82, QTC 411 Chest x-ray showed increased mild opacity may represent atelectasis or infiltrate In the emergency room he was started on ceftriaxone and Zithromax, Solu-Medrol 40 mg and her symptom IV fluids On admission pulmonary team were consulted 05/13/21 Patient oxygen requirement now at 4 L/m which is his baseline at home however is still tachypneic. He looks lethargic and withdrawn in bed mostly related to his dyspnea. No significant chest pain or coughing. Other vitals are stable. Labs improvement with WBC back to normal. Sodium improved to 1:30 Today he has CTA of the chest was showing no PE, moderate emphysema with advanced COPD and widespread bronchiectasis with acute bronchitis and right basa l pneumonia. Echocardiogram was suspicious for a mass in the IVC next to our a however this was not mentioned in the CTA, besides corn shredder on the case Pulmonary consult following patient closely TobraDex was his wish to cefepime and Levaquin for hospital-acquired pneumonia. He is also on Solu-Medrol 60 mg on home dose of Polycose 05/14/2021 He is significantly less tachypneic compared to yesterday. He is at baseline of 4 L/m of oxygen similar to yesterday. He is using his breathing machine overnight. Other than that he is hemodynamically stable, labs showing mild leukocytosis while he is on steroids. Yesterday he was started on cefepime and Levaquin, secondary to right lower lobe pneumonia suspected on CT of the chest. howevercalcitonin came back negative today at 0.06. So lower the dose of cefepime to 1 g twice a day. Is on Solu- Medrol 60 mg as well as home dose of Eliquis. For his A. fib 05/15/2021 Patient. This morning he was attended and a-team was called, it turns out he has CO2 retention and improved with BiPAP setting of / and FiO2 of 35% to keep oxygen saturating more than 88%. After BiPAP placement his back to basic mentation. He was fully awake and oriented to time, place and person. He is ordered and surrounded. However because of BiPAP was switched his oral medication to IV or subcutaneous included Lovenox instead of Eliquis and IV Levaquin. Also he has some urinary retention which is been going on at home with straight cath. No need for urinalysis as he is already on broad-spectrum antibiotics. Flomax has been added. His labs looks stable with WBC is 10.9, sodium 131 and CO2 45. He remains on cefepime and Levaquin as well as Solu-Medrol 60 mg of subcutaneous Lovenox 60 mg twice a day therapeutic dose 05/16/2021 Patient today this morning he was doing better, his breathing was quite correct than the last couple days. He still needed to use his BiPAP during the night however in the morning is back to 4-5 L of oxygen nasal. His breathing looks easier and chest x-ray was showing critical nodular infiltrates bilaterally with hyperinflated COPD chest over when I review of the chest x-ray by myself and shows improvement compared to one from 05/12. However later on and a-team was called because of tachycardia up to 160 secondary to a flutter/fib, he was started on Cardizem drip and metoprolol 25 mg daily and transferred to select units Also he has evidence of urinary retention, recurrent Dr. him in the morning he preferred to do straight cath only, Flomax was started, however during a-team Mcgill catheter was placed 05/17/2021 Patient is breathing easier today, he is on 2 L oxygen via nasal cannula with saturation of 95%. Other vitals are stable, afebrile. Also heart rate is controlled today on 90 bpm while he is off Cardizem drip His labs are stable with normal WBC at 8.9, sodium stable at 131 and CO2 and 43 coming down. He is metoprolol was switched to Cardizem 360 mg, his TSH is low at 0.3 and T4 slightly low at 0.59, most likely sick euthyroid. His sputum culture is growing gram-negative bacilli and [place] albicans. He is currently continued on cefepime and oral Levaquin, anticoagulation and switched back to his home dose of Eliquis. He is on Solu-Medrol 60 mg. Mcgill catheter is still in place, explained to the patient importance of keeping of the flow of urine going otherwise he will be at risk of renal failure (Mcgill catheter was initially placed yesterday during the a-team ) 05/18/2021 Patient is evaluated today sitting up in the chair. He states that his indwelling catheter has been removed. Patient states that he is not having any issues urinating. Patient reports that he wears 4 L nasal cannula at home, patient is maintaining oxygen saturation at 94% on 4 L nasal cannula today. Patient's sputum culture has been finalized to grow Pseudomonas, [place]. Medical sensitivity showed resistance to cefepime, azithromycin. Patient has been changed to meropenem from pulmonary services. Patient will continue on IV steroids. Patient does have his home trelegy inhaler at the bedside, and states that he is using it as prescribed. Sodium has dropped to 128 today, blood glucose is elevated at 390. Patient's TSH and free T4 remain below normal limits. Patient states that he is frustrated because he has had frequent admissions for COPD exacerbation, he states that he feels weaker with every admission. Physical therapy at the time is recommended home with home care, patient was able to tolerate bed mobility and was able to stand with standby assistance patient is currently denying any chest pain, palpitations. He does report some cough with dark green sputum, and dyspnea with exertion. Patient reports a fair appetite, denies nausea, vomiting, diarrhea. Patient denies any dizziness or lightheadedness. ROS: Constitutional: Reports fatigue denied any fever. Cardio vascular: denied any chest pain, palpitations Gastrointestinal denied any nausea vomiting Pulmonary: Reports cough, dyspnea with exertion Neurologic denied any new focal deficits All inpatient medications were reviewed and appropriate changes in these medications as dictated in the interval history and assessment and plan. Assessment: A. fib/flutter with RVR, Acute COPD exacerbation, advance to stage with FEV1 of 19%, and widespread br onchiectasis with acute bronchitis and moderate emphysema. Right lower lobe pneumonia secondary to Pseudomonas Acute CO2 retention with respiratory acidosis, improved with BiPAP Possible constrictive pericarditis Acute urinary retention status post Mcgill catheter Atrial flutter with 4:1 A-V conduction, cardiology team signed off History of alpha-1 antitrypsin deficiency Hypertension Chronic hyponatremia Chronic atrial fibrillation on Eliquis and raped is controlled. Currently is on a flutter with 4:1 A-V conduction History of pancreatitis Plan: Micro-sensitivities revealed a resistance to cefepime and azithromycin, patient has been transitioned to IV meropenem for positive sputum culture cardiology consult for recurrent A. fib/flutter continue with Cardizem, eliquis is currently on hold for a procedure tomorrow Continue with BiPAP at night Continue on Flomax, continue strict I & O, continue post void residual - indwelling catheter has been removed at request of the patient. DVT and GI prophylaxis. Further recommendations depends on the clinical course of the patient DVT prophylaxis:Eliquis currently on hold GI Prophylaxis: Pepcid Prognosis is guarded Patient was evaluated by cardiology today, pending further diagnostic workup for constrictive pericarditis with a right and left heart catheterization tomorrow. Continue with IV steroids, IV antibiotics, continue all other medications. Repeat labs in the morning. Please continue with post void re sidual bladder scans to assess for urinary retention. Objective - Vital Signs Vital signs: Vital Signs Temp 97.8 F 05/18/21 09:55 Pulse 87 05/18/21 11:21 Resp 18 05/18/21 09:55 BP 120/73 05/18/21 09:55 Pulse Ox 94 L 05/18/21 09:55 Intake & Output 05/17/21 05/18/21 05/18/21 18:59 06:59 18:59 Intake Total 660 118 Output Total 1775 500 Balance -1115 -500 118 Weight 66 kg Intake: Oral 660 118 Output: Urine 1775 500 Other: Voiding Method Urinal Urinal - Labs CBC & Chem 7: 05/16/21 07:33 05/18/21 07:43 Labs: Abnormal Lab Results - Last 24 Hours (Table) 05/17/21 05/17/21 05/18/21 Range/Units 16:38 19:36 05:40 Sodium (137-145) mmol/L Chloride (98-107) mmol/L Carbon Dioxide (22-30) mmol/L BUN (9-20) mg/dL Creatinine (0.66-1.25) mg/dL Glucose (74-99) mg/dL POC Glucose (mg/dL) 209 H 272 H 190 H (75-99) mg/dL TSH (0.465-4.680) mIU/L Free T4 (0.78-2.19) ng/dL 05/18/21 05/18/21 Range/Units 07:43 11:39 Sodium 128 L (137-145) mmol/L Chloride 82 L (98-107) mmol/L Carbon Dioxide 35 H (22-30) mmol/L BUN 23 H (9-20) mg/dL Creatinine 0.29 L (0.66-1.25) mg/dL Glucose 235 H (74-99) mg/dL POC Glucose (mg/dL) 390 H (75-99) mg/dL TSH 0.275 L (0.465-4.680) mIU/L Free T4 0.62 L (0.78-2.19) ng/dL Microbiology - Last 24 Hours (Table) 05/14/21 19:35 Gram Stain - Final Sputum Sputum Culture - Final Pseudomonas aeruginosa [place] albicans 05/11/21 22:03 Blood Culture - Final Blood No Growth after 144 hours 05/11/21 22:18 Blood Culture - Final Blood No Growth after 144 hours
[2021-05-18 15:06] VITALS: BMI 19.7
[2021-05-18 16:50] LABS: Glucose,Whole Blood 229 mg/dL (75-99)
[2021-05-18] MEDS: TAMSULOSIN 0.4 MG CAP.ER.24H PO SCH (17:50)
[2021-05-18 20:08] LABS: Glucose,Whole Blood 268 mg/dL (75-99)
[2021-05-18] MEDS: MIRTAZAPINE 15 MG TAB PO SCH (20:23)
[2021-05-18] MEDS: ALPRAZolam 0.5 MG TAB PO PRN (21:35)
[2021-05-19] MEDS: MEROPENEM 1 GM in SODIUM CHLORIDE 0.9% 100 ML IVPB SCH ×3 (04:20→20:26)
[2021-05-19 06:06] LABS: Glucose,Whole Blood 214 mg/dL (75-99)
[2021-05-19] MEDS: methylPREDNISolone SOD SUCCI 125 MG/2 ML VIAL IV SCH ×4 (06:33→23:29)
[2021-05-19] MEDS: INSULIN ASPART (NovoLOG) 100 UNIT/ML VIAL SQ SCH ×4 (06:33→20:27)
[2021-05-19 06:54] LABS: African American GFR (CKD) >90 (>60 ml/min/1.73 sqM); Blood Urea Nitrogen 21 mg/dL (9-20); Calcium 8.8 mg/dL (8.4-10.2); Chloride 79 mmol/L (98-107); Glucose 231 mg/dL (74-99); Non-African American GFR(CKD) >90 (>60 ml/min/1.73 sqM); Potassium 3.7 mmol/L (3.5-5.1); Sodium 131 mmol/L (137-145)
[2021-05-19 07:02] LABS: Anion Gap 2 mmol/L
[2021-05-19 07:08] LABS: Carbon Dioxide 50 mmol/L (22-30)
[2021-05-19] MEDS: VILANTER INHALATION SCH (07:31)
[2021-05-19] MEDS: ALBUTEROL NEBULIZED 2.5 MG/3 ML INHALATION SCH ×4 (07:31→19:24)
[2021-05-19] MEDS: UMECLIDIN BL INHALATION SCH (07:31)
[2021-05-19] MEDS: FLUTICASONE INHALATION SCH (07:31)
[2021-05-19] MEDS: FAMOTIDINE 20 MG TAB PO SCH (08:07)
[2021-05-19] MEDS: SERTRALINE 50 MG TAB PO SCH (08:07)
[2021-05-19] MEDS: DILTIAZEM CD 180 MG CAP.ER.24H PO SCH (08:07)
[2021-05-19] MEDS: COLCHICINE 0.6 MG EACH PO SCH (08:07)
[2021-05-19] MEDS: LORATADINE 10 MG TAB PO SCH (08:08)
[2021-05-19] MEDS ORDERED: FUROSEMIDE 10 MG/ML 4 ML VIAL IV STA (09:11)
[2021-05-19] MEDS ORDERED: acetaZOLAMIDE 250 MG TAB PO SCH (09:15)
[2021-05-19 11:44] LABS: Glucose,Whole Blood 254 mg/dL (75-99)
--- NOTE | 2021-05-19 12:08 | P.PN ---
Subjective This is a pleasant 55-year-old male past medical history significant for paroxysmal atrial fibrillation/flutter, COPD, hypertension and alpha-1 antitrypsin. He follows in the office with Dr. Lebron. He was initially seen and evaluated and we have been asked to see him again in consultation secondary to recurrent atrial flutter with rapid ventricular rates. Other than being short of breath he doesn't have any significant symptoms. He thinks he may have felt a little dizzy but isn't even very positive about that. He denies palpit ations or chest pain. Blood pressure 122/82 heart rate 91 afebrile maintaining oxygen saturation on nasal cannula. Laboratory data reviewed, CBC unremarkable, sodium 131, potassium 4.5, creatinine 0.29. Currently maintained on Cardizem infusion and Toprol 25 mg daily. 05/17/2021 Pt seen and examined sitting up in bed in no acute distress. He feels like his breathing is back to baseline. He denies chest pain or dizziness. Echo images reviewed by Dr. Chen and he is concerned for possible constrictive pericarditis. Blood pressure 126/81 heart rate 92 afebrile maintaining oxygen saturation on nasal cannula. Repeat limited echocardiogram reveals respiratory variation across the mitral and tricuspid valve with a septal bounce noted. He has converted to SR on the monitor. 24-hr urine output 2.2 Liters. Laboratory data reviewed, sodium 128, potassium 4.4, creatinine 0.29. GENERAL: Well-appearing, well-nourished and in no acute distress. NECK: Supple without JVD or thyromegaly. LUNGS: Breath sounds clear to auscultation bilaterally. Respiration equal and unlabored. No wheezes, rales or rhonchi. HEART: Irregular rate and rhythm without murmurs, rubs or gallops. S1 and S2 heard. EXTREMITIES: Normal range of motion, 1+ bilateral lower extremity pitting edema. No clubbing or cyanosis. Peripheral pulses intact. ASSESSMENT Paroxysmal atrial tachycardia/atrial flutter Hypertension Acute exacerbation of COPD Alpha-1 antitrypsin deficiency Former nicotine Concern for possible constrictive pericarditis PLAN Give lasix 40 mg IV now and diamox for component of contraction alkalosis. NPO after midnight tonight for possible R/LHC tomorrow. Hold eliquis for probable procedure. Further recommendations to follow based on clinical course. Nurse Practitioner note has been reviewed, I agree with a documented findings and plan of care. Patient was seen and examined. Objective - Vital Signs Vital signs: Vital Signs Temp 97.6 F 05/19/21 07:58 Pulse 94 05/19/21 11:10 Resp 24 05/19/21 07:58 BP 125/86 05/19/21 07:58 Pulse Ox 91 L 05/19/21 08:16 Intake & Output 05/18/21 05/19/21 05/19/21 18:59 06:59 18:59 Intake Total 430.5 Output Total 2024 410 Balance -1594.5 -410 Weight 66 kg 67 kg Intake: Intake, IV Titration 12.5 Amount Cefepime 1 gm In Sodium 12.5 Chloride 0.9% 50 ml @ 12. 5 mls/hr IVPB Q12HR [facility] Rx#:[id number] Oral 418 Output: Urine 2024 410 Other: Voiding Method Urinal # Voids 1 - Labs CBC & Chem 7: 05/16/21 07:33 05/19/21 06:01 Labs: Abnormal Lab Results - Last 24 Hours (Table) 05/18/21 05/18/21 05/19/21 Range/Units 16:37 20:07 06:01 Sodium 131 L (137-145) mmol/L Chloride 79 L (98-107) mmol/L Carbon Dioxide 50 H* (22-30) mmol/L BUN 21 H (9-20) mg/dL Creatinine 0.30 L (0.66-1.25) mg/dL Glucose 231 H (74-99) mg/dL POC Glucose (mg/dL) 229 H 268 H (75-99) mg/dL 05/19/21 05/19/21 Range/Units 06:04 11:43 Sodium (137-145) mmol/L Chloride (98-107) mmol/L Carbon Dioxide (22-30) mmol/L BUN (9-20) mg/dL Creatinine (0.66-1.25) mg/dL Glucose (74-99) mg/dL POC Glucose (mg/dL) 214 H 254 H (75-99) mg/dL Microbiology - Last 24 Hours (Table) 05/14/21 19:35 Gram Stain - Final Sputum Sputum Culture - Final Pseudomonas aeruginosa [place] albicans
--- NOTE | 2021-05-19 12:50 | XR ---
EXAMINATION TYPE: XR chest 2V DATE OF EXAM: 05/19/2021 COMPARISON: 05/16/2021 HISTORY: 55-year-old male follow-up diuresis, shortness of breath TECHNIQUE: AP and lateral views FINDINGS: Reticulonodular opacities are redemonstrated without significant change. Hyperinflation with flatteni ng of the hemidiaphragms. Patchy posterior basilar opacity on the lateral view. Heart normal size. IMPRESSION: 1. COPD with unchanged reticulonodular infiltrates which corresponded to widespread bronchiectasis, m ultifocal endobronchial plugging, and tree-in-bud opacities on the patient's 05/13/2021 CT. 2. Residual patchy infiltrate in the posterior right base of the lateral view.
--- NOTE | 2021-05-19 13:24 | P.PN ---
Subjective Progress Note Date: 05/19/21 Principal diagnosis: Acute on chronic hypoxic and hypercapnic respiratory failure secondary to severe underlying COPD with acute exacerbation. And right lower lobe pneumonia 55-year-old white male patient with history of severe COPD/emphysema, alpha-1 antitrypsin deficiency,, with baseline FEV1 of 19% of predicted and severe diffusion abnormality of 40% of predicted. Patient was recently hospitalized 10/27/2020 through 11/01/2020 and later on hospitalized between 11/23/2020 and 12/01/2020 for acute exacerbation of severe COPD. He is on nebulized DuoNeb, Trelegy Ellipta [phone] one puff inhalation daily. The patient also has a a a AVAPS machine at home but utilizes for chronic hypercapnic respiratory failure and recurrent COPD exacerbation. Patient is an ex-smoker, however has not smoked 1 year, prior to that smoked for 36 years pack a day, in addition had sm oked marijuana. His other medical history hypertension, his blood pressure medication had to be by his primary care physician Dr. Irizarry I furthermore, worked up this patient for endobronchial valve insertion/lung volume reduction and as part of his workup, he underwent a high resolution computed tomography scan of the chest and this was consistent with COPD and he underwent a blood gas that showed significant CO2 retention with a pCO2 of 75 and a pH of 7.4 and a pO2 of 44 and this was on room air oxygen. Based on his underlying CO2 retention, he was essentially got disqualified for endobronchial valve insertion. I was coordinating all this work through this patient and [facility]. Based on all this, the skin is a case of advanced, and states COPD with recurrent hospitalization. The most recent hospitalization for this patient was an 03/27/2021 and the patient was discharged home on 03/31/2021. He is a nonsmoker. He presented back to the hospital because of worsening sh ortness of breath. He denied having any smoking history. He was taking prednisone 20 mg by mouth daily in addition to other maintenance stop the medications. I'm not absolutely sure the patient was still using his AV APS machine. The patient was placed on 6 L about 2 by nasal cannula to bring his saturation above 90%. White cell count was at 12.9. Sodium level was 123. Troponins 3 has been 0.01 and COVID-19 testing was negative. Chest x-ray showed hyperinflation and diffuse emphysema. EKG showed atrial flutter rhythm. No altered mentation. No pleurisy. No hemoptysis. No chest pain. She was given IV fluids. Sodium level improved from 123 at baseline is up to 1:30. Serum bicarb is above 40. Creatinine is at 0.4 with a BUN of 11. White cell count is at 7.39. On today's evaluation on 05/13/2021 patient is seen in follow-up on medical surgical floor. He is resting comfortably in bed, appears to be less dyspneic although he states his breathing is about the same, however not worsened since admission. Breathing comfortably, he is currently on 4 L of oxygen, his pulse o x is 97%, his been afebrile overnight, lung sounds are extremely diminished, without rhonchi or wheezing. Abiotic in the form of Rocephin and azithromycin in the emergency department for possibility of underlying pneumonia. Patient also continues on IV Cipro medical 60 mg every 6 hours, the emergency department he was in a flutter with 421 conduction, his heart rate is controlled, he is on Eliquis. His brought his AVAPS machine in today. Patient is on automatic settings, he is very compliant with that, he wears it every night at home. Today's labs have been reviewed, his white blood cell count is improved and is down to 7.39, hemoglobin is 13.5, his serum sodium is improving and is up to 1:30, potassium is 5.3, CO2 is greater than 40, and patient does have chronic hypoxic and hypercapnic respiratory failure, in addition he was given some diuretics in the emergency department, he is currently on 0.9 normal saline at a rate of 75 ML per hour. His 3 sets of cardiac troponins were negative. He tested negative for COVID-19. CT chest was ordered and showed no evidence of pulmonary embolism, he did not COPD with moderate emphysema, brought This is, areas of endobronchial plugging, and tree-in-bud opacities. There was also superimposed acute bronchiolitis, and there is josefina consolidation at the posterior right base highly suggestive of pneumonia. In the past patient had sputum cultures positive for pseudomonas At today's evaluation 05/10/2021 patient seen in follow-up on medical surgical floor. He is resting comfortably in bed, currently on 4 L of oxygen, his pulse ox is 96%, afebrile, he did wear his AVAPS machine last night. The patient has Had no acute events overnight, he remains on high-dose IV steroids 60 mg every 6 hours, we switched his antibiotic coverage to Levaquin and cefepime yesterday, he is on nebulized bronchodilators. No hemoptysis, no chest discomfort, lung sounds are extremely diminished, patient is very short of breath with any exerti on however this is chronic for him. His white count today is 11.04, hemoglobin is 13, sodium is 135, potassium is 4.8, chloride is 86, CO2 is greater than 40, B1 is 12, creatinine is 0.3. Pro-calcitonin level was 0.06 On today's evaluation on 05/15/2021 patient seen in follow-up on medical surgic al floor. This morning patient was noted to be more lethargic, poorly responsive, and a rapid response team was called for evaluation. Apparently last night he did not wear his home AVAPS, and this morning he was noted to be more confused, more ALLERGIC, and he had stooled on himself. His AVAPS device mask does not fit him well anymore, and for that reason patient has not been wearing it consistently. Patient has advanced stage IV COPD, with chronic hypoxic and hypercapnic respiratory failure. He was placed on BiPAP support with pressures of 12 and 6 and FiO2 of 35%, he is currently satting 94%, currently afterward the blood gas was completed showing pO2 of 56, pCO2 of 100, and pH of 7.33, this was done on FiO2 of 32%. Patient is tolerating BiPAP very well, he states he is comfortable on that, and he likes the mask better. He subsequently became a bit more responsive, he is breathing easier. The rest of blood work has been reviewed, showing white blood cell, 10.9, hemoglobin of 14.1, sodium of 131, potassium is 5.0, chloride is 84, CO2 was 45, BUN of 17, creatinine 0.20. His pro calcitonin level was low at 0.06, patient was placed on empiric antibiotics in the form of cefepime and Levaquin for possibility of COPD, and tracheobronchitis. He is on IV Solu-Medrol 60 mg every 6 hours and nebulized bronchodilators On today's evaluation on 05/16/2021 patient is being transferred to selective care unit related to A. fib with RVR, patient has been started on Cardizem infus ion which is currently running at 5 mg per hour, he did wear BiPAP support last night with pressures of 12/6 and FiO2 of 32%. Tolerated it very well, he is currently back on 5 L per nasal cannula, breathing comfortably, other than A. fib with RVR, other vital signs have been stable, his been afebrile, blood pressure is been stable. His chest x-ray today shows reticulonodular infiltrates, hyperinflation. Patient remains on a combination of Levaquin and cefepime, pro calcitonin level was low, he is not coughing up significant amount of secretions, he remains on IV Solu-Medrol 60 mg every 6 hours, today's labs have been reviewed, his white blood cell count is 9.8, hemoglobin is 13.8, later count is 302, sodium is 131, potassium is 4.5, chloride is 83, CO2 is 43, B1 is 21, creatinine is 0.29. on 05/17/2021 patient seen in follow-up on Selective care floor. he is up in the chair today, breathing comfortably, 4 L of oxygen with pulse ox of 94%. he were the BiPAP support last night. vital signs have been stable, his been afebrile, his breathing comfortably, he remains on a combination of Levaquin and cefepime, his sputum culture still pending, it did show gram-negative bacilli, and Carolina albicans. today's labs are pending for now. No complaints of chest pain, no hemoptysis, his [place] from 05/13/2021 was negative at 0.06. CTA chest showed no evidence of pulmonary embolism, it did show COPD with moderate emphysema, and widespread bronchiectasis and areas of endobronchial plugging. There was new and consolidation at the posterior right base that was suggestive of pneumonia, and pericardial calcifications with prior pericarditis were noted. However echocardiogram showed preserved LV function with EF of 55%. mild MR and mild TR. patient denies any chest pain, he is on Eliquis 5 mg twice a day for A. fib with RVR. on 05/18/2021 patient is seen in follow-up on selective care unit, his sputum culture finalized with pseudomonas aeruginosa which was resistant to both of the antibiotics that she is on which include cefepime and Levaquin. Clinically patient is doing great, he is awake and alert, oriented 3, appears to be no acute distress, currently on 4 L of oxygen, with a pulse ox of her percent, she is utilizing BiPAP support at night. Afebrile, vital signs have been stable, and a chest x-ray today, today's labs have been reviewed, BNP was completed only, no CBC, sodium is 128, potassium is 4.4, chloride 82, CO2 35, B1 is 23, creatinine 0.29. Patient is receiving intermittent doses of Lasix cardiology. Negative net fluid 1.6 L fluid balance of last 24 hours. On 05/19/2021, patient remains on selective care unit, patient remains intermittently on BiPAP alternating with nasal cannula. Seems to be doing a bit better today, I believe his chest x-ray which I reviewed is showing slight improvement in his pneumonia patient had abnormal positives sputum culture secondary to pseudomonas aeruginosa and seems to be resistant to multiple antibiotics, sensitive to meropenem. And I am recommending that the patient eventually goes home on IV Merrem for at least 2 weeks. We will arrange for the patient had a PICC line, and eventually discharged the patient home on Merrem. Patient is clinically improving, but he does have severe end-stage COPD, overall prognosis remains extremely poor. His electrolytes today were reviewed, bicarb is elevated at 50, patient has been receiving diuretics, and I'm switching him to Diamox instead. Clearly the patient has compensatory metabolic alkalosis secondary to his underlying chronic respiratory acidosis not to mention the patient has been receiving diuretics contributing also to his metabolic alkalosis. Chest x-ray showed improvement nonetheless, continues to show reticulonodular infiltrates and widespread bronchiectasis this was noted on previous CT of the chest. Objective - Vital Signs Vital signs: Vital Signs Temp 97.6 F 05/19/21 07:58 Pulse 73 05/19/21 12:00 Resp 24 05/19/21 12:00 BP 140/82 05/19/21 12:00 Pulse Ox 97 05/19/21 12:00 Intake & Output 05/18/21 05/19/21 05/19/21 18:59 06:59 18:59 Intake Total 430.5 Output Total 2024 410 Balance -1594.5 -410 Weight 66 kg 67 kg Intake: Intake, IV Titration 12.5 Amount Cefepime 1 gm In Sodium 12.5 Chloride 0.9% 50 ml @ 12. 5 mls/hr IVPB Q12HR [facility] Rx#:[id number] Oral 418 Output: Urine 2024 Other: Voiding Method Urinal # Voids 1 - Exam GENERAL EXAM: Revealed a 55-year-old white male, looks frail and chronically ill. on 4 L nasal cannula, noted to be slightly tachypneic. HEAD: Normocephalic/atraumatic. HEENT: PERRLA, EOMI, anicteric, no neck masses, no JVD, no stridor. CHEST: No chest wall deformity. Symmetrical expansion. LUNGS: Minimal crackles at the bases. CVS: Regular rate and rhythm, normal S1 and S2, no gallops, no murmurs, no rubs ABDOMEN: Soft, nontender. No hepatosplenomegaly, normal bowel sounds, no guarding or rigidity. EXTREMITIES: No clubbing, no edema, no cyanosis, 2+ pulses and upper and lower extremities. MUSCULOSKELETAL: Muscle strength and tone normal. SKIN: No rashes CENTRAL NERVOUS SYSTEM: Alert and oriented 3 no focal deficits.. PSYCHIATRIC: Normal mood, affect and normal mental status examination - Labs CBC & Chem 7: 05/16/21 07:33 05/19/21 06:01 Labs: Abnormal Lab Results - Last 24 Hours (Table) 05/18/21 05/18/21 05/19/21 Range/Units 16:37 20:07 06:01 Sodium 131 L (137-145) mmol/L Chloride 79 L (98-107) mmol/L Carbon Dioxide 50 H* (22-30) mmol/L BUN 21 H (9-20) mg/dL Creatinine 0.30 L (0.66-1.25) mg/dL Glucose 231 H (74-99) mg/dL POC Glucose (mg/dL) 229 H 268 H (75-99) mg/dL 05/19/21 05/19/21 Range/Units 06:04 11:43 Sodium (137-145) mmol/L Chloride (98-107) mmol/L Carbon Dioxide (22-30) mmol/L BUN (9-20) mg/dL Creatinine (0.66-1.25) mg/dL Glucose (74-99) mg/dL POC Glucose (mg/dL) 214 H 254 H (75-99) mg/dL Microbiology - Last 24 Hours (Table) 05/14/21 19:35 Gram Stain - Final Sputum Sputum Culture - Final Pseudomonas aeruginosa Carolina albicans Assessment and Plan Assessment: #1. Acute on chronic hypoxic and hypercapnic respiratory failure related to acute exacerbation of COPD and right lower lobe pneumonia, and bronchiectasis . Secondary to pseudomonas aeruginosa #2. Severe COPD, baseline FEV1 of 19% of predicted, stage IV COPD, on home oxygen at 4 L . The patient is a chronic CO2 retainer. He was not found to be a candidate for endobronchial [place] valve insertion because of chronic hypercapnic respiratory failure. #3. Alpha-1 anti-trypsin deficiency #4. 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 Hypertension #6. PAF/flutter current rhythm is sinus and the patient is on long-term anticoa gulation with Eliquis.. #7. borderline concentric LVH/hypertensive heart disease with a preserved LV function #8. previous sputum colonization/infection with pseudomonas aeruginosa based on the sputum analysis that was done on 11/24/2020 and 03/02/2021. #9. Paroxysmal atrial fibrillation with RVR. Being addressed by cardiology on the case. #10. pericardial calcifications compatible with prior pericarditis noted on the CTA chest, with possibility of restrictive pericarditis. #11. 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 Use Diamox for diuresis. Continue oral anticoagulation therapy. Continue steroids and bronchodilators. Overall long-term prognosis remains extremely poor and guarded considering the severity of his COPD/alpha-1 antitrypsin deficiency and severe bronchiectasis. Time with Patient: Less than 30
--- NOTE | 2021-05-19 14:03 | P.PN ---
Subjective Progress Note Date: 05/19/21 This is a pleasant 55 years old male with past medical history of hypertension, COPD secondary to alpha-1 antitrypsin deficiency, pancreatitis and atrial fibrillation on Eliquis. 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 He denies smoking, alcohol or illicit drugs He's on 4 L oxygen via nasal cannula at home and 20 mg of prednisone daily. He is currently saturating 90-97% on 6 L oxygen via nasal cannula, and afebrile and dressed vitals are stable Labs showing mild leukocytosis of 12.9 K, sodium 123, his sodium went baseline is ranging 126-135 potassium 6.0, creatinine 0.18. Troponin are negative 3 at 0.018, less than 0.012 and less than 0.012. And coronavirus not detected. Chest x-ray showing increased mild opacity may represent atelectasis or infiltrate, chronic micronodular T EKG showing atrial flutter with a 421 A-V block conduction and a rate of 82, QTC 411 Chest x-ray showed increased mild opacity may represent atelectasis or infiltrate In the emergency room he was started on ceftriaxone and Zithromax, Solu-Medrol 40 mg and her symptom IV fluids On admission pulmonary team were consulted 05/13/21 Patient oxygen requirement now at 4 L/m which is his baseline at home however is still tachypneic. He looks lethargic and withdrawn in bed mostly related to his dyspnea. No significant chest pain or coughing. Other vitals are stable. Labs improvement with WBC back to normal. Sodium improved to 1:30 Today he has CTA of the chest was showing no PE, moderate emphysema with advanced COPD and widespread bronchiectasis with acute bronchitis and right basa l pneumonia. Echocardiogram was suspicious for a mass in the IVC next to our a however this was not mentioned in the CTA, besides surface supply breathing apparatus on the case Pulmonary consult following patient closely TobraDex was his wish to cefepime and Levaquin for hospital-acquired pneumonia. He is also on Solu-Medrol 60 mg on home dose of Polycose 05/14/2021 He is significantly less tachypneic compared to yesterday. He is at baseline of 4 L/m of oxygen similar to yesterday. He is using his breathing machine overnight. Other than that he is hemodynamically stable, labs showing mild leukocytosis while he is on steroids. Yesterday he was started on cefepime and Levaquin, secondary to right lower lobe pneumonia suspected on CT of the chest. howevercalcitonin came back negative today at 0.06. So lower the dose of cefepime to 1 g twice a day. Is on Solu- Medrol 60 mg as well as home dose of Eliquis. For his A. fib 05/15/2021 Patient. This morning he was attended and a-team was called, it turns out he has CO2 retention and improved with BiPAP setting of / and FiO2 of 35% to keep oxygen saturating more than 88%. After BiPAP placement his back to basic mentation. He was fully awake and oriented to time, place and person. He is ordered and surrounded. However because of BiPAP was switched his oral medication to IV or subcutaneous included Lovenox instead of Eliquis and IV Levaquin. Also he has some urinary retention which is been going on at home with straight cath. No need for urinalysis as he is already on broad-spectrum antibiotics. Flomax has been added. His labs looks stable with WBC is 10.9, sodium 131 and CO2 45. He remains on cefepime and Levaquin as well as Solu-Medrol 60 mg of subcutaneous Lovenox 60 mg twice a day therapeutic dose 05/16/2021 Patient today this morning he was doing better, his breathing was quite correct than the last couple days. He still needed to use his BiPAP during the night however in the morning is back to 4-5 L of oxygen nasal. His breathing looks easier and chest x-ray was showing critical nodular infiltrates bilaterally with hyperinflated COPD chest over when I review of the chest x-ray by myself and shows improvement compared to one from 05/12. However later on and a-team was called because of tachycardia up to 160 secondary to a flutter/fib, he was started on Cardizem drip and metoprolol 25 mg daily and transferred to select units Also he has evidence of urinary retention, recurrent Dr. him in the morning he preferred to do straight cath only, Flomax was started, however during a-team Mcgill catheter was placed 05/17/2021 Patient is breathing easier today, he is on 2 L oxygen via nasal cannula with saturation of 95%. Other vitals are stable, afebrile. Also heart rate is controlled today on 90 bpm while he is off Cardizem drip His labs are stable with normal WBC at 8.9, sodium stable at 131 and CO2 and 43 coming down. He is metoprolol was switched to Cardizem 360 mg, his TSH is low at 0.3 and T4 slightly low at 0.59, most likely sick euthyroid. His sputum culture is growing gram-negative bacilli and [place] albicans. He is currently continued on cefepime and oral Levaquin, anticoagulation and switched back to his home dose of Eliquis. He is on Solu-Medrol 60 mg. Mcgill catheter is still in place, explained to the patient importance of keeping of the flow of urine going otherwise he will be at risk of renal failure (Mcgill catheter was initially placed yesterday during the a-team ) 05/18/2021 Patient is evaluated today sitting up in the chair. He states that his indwelling catheter has been removed. Patient states that he is not having any issues urinating. Patient reports that he wears 4 L nasal cannula at home, patient is maintaining oxygen saturation at 94% on 4 L nasal cannula today. Patient's sputum culture has been finalized to grow Pseudomonas, [place]. Medical sensitivity showed resistance to cefepime, azithromycin. Patient has been changed to meropenem from pulmonary services. Patient will continue on IV steroids. Patient does have his home trelegy inhaler at the bedside, and states that he is using it as prescribed. Sodium has dropped to 128 today, blood glucose is elevated at 390. Patient's TSH and free T4 remain below normal limits. Patient states that he is frustrated because he has had frequent admissions for COPD exacerbation, he states that he feels weaker with every admission. Physical therapy at the time is recommended home with home care, patient was able to tolerate bed mobility and was able to stand with standby assistance patient is currently denying any chest pain, palpitations. He does report some cough with dark green sputum, and dyspnea with exertion. Patient reports a fair appetite, denies nausea, vomiting, diarrhea. Patient denies any dizziness or lightheadedness. 05/19/2021 Patient is scheduled for a right left heart cath tomorrow with cardiology. Patient's CO2 was 50 today, continue on BiPAP. Infectious disease has been consultative, discharge planning recommendations. Patient denies any pain today , reports productive cough, denies any chest pain, shortness of breath. Sodium has improved to 131. Patient is still being followed closely by coronary services, IV antibiotics changed to meropenem. Vital signs remained stable, afebrile, BP 140/82, 73 sinus rhythm, 97% on 5 L nasal cannula. Wean oxygen as tolerated. ROS: Constitutional: Reports fatigue denied any fever. Cardio vascular: denied any chest pain, palpitations Gastrointestinal denied any nausea vomiting Pulmonary: Reports cough, dyspnea with exertion Neurologic denied any new focal deficits All inpatient medications were reviewed and appropriate changes in these medications as dictated in the interval history and assessment and plan. Assessment: A. fib/flutter with RVR, Acute COPD exacerbation, advance to stage with FEV1 of 19%, and widespread bronchiectasis with acute bronchitis and moderate emphysema. Right lower lobe pneumonia secondary to Pseudomonas Acute CO2 retention with respiratory acidosis, improved with BiPAP Possible constrictive pericarditis Acute urinary retention status post Mcgill catheter Atrial flutter with 4:1 A-V conduction, cardiology team signed off History of alpha-1 antitrypsin deficiency Hypertension Chronic hyponatremia Chronic atrial fibrillation on Eliquis and raped is controlled. Currently is on a flutter with 4:1 A-V conduction History of pancreatitis Plan: cardiology consult for recurrent A. fib/flutter continue with Cardizem, eliquis is currently on hold plan is for a right and left heart cath tomorrow Continue with BiPAP at night Continue on Flomax, continue strict I & O, continue post void residual ID consult for IV antibiotic recommendations on discharge for positive Pseudomonas culture in the sputum. DVT prophylaxis:Eliquis currently on hold GI Prophylaxis: Pepcid Objective - Vital Signs Vital signs: Vital Signs Temp 97.6 F 05/19/21 07:58 Pulse 94 05/19/21 11:10 Resp 24 05/19/21 07:58 BP 125/86 05/19/21 07:58 Pulse Ox 91 L 05/19/21 08:16 Intake & Output 05/18/21 05/19/21 05/19/21 18:59 06:59 18:59 Intake Total 430.5 Output Total 2024 410 Balance -1594.5 -410 Weight 66 kg 67 kg Intake: Intake, IV Titration 12.5 Amount Cefepime 1 gm In Sodium 12.5 Chloride 0.9% 50 ml @ 12. 5 mls/hr IVPB Q12HR [facility] Rx#:[id number] Oral 418 Output: Urine 2024 410 Other: Voiding Method Urinal # Voids 1 - Labs CBC & Chem 7: 05/16/21 07:33 05/19/21 06:01 Labs: Abnormal Lab Results - Last 24 Hours (Table) 05/18/21 05/18/21 05/18/21 Range/Units 11:39 16:37 20:07 Sodium (137-145) mmol/L Chloride (98-107) mmol/L Carbon Dioxide (22-30) mmol/L BUN (9-20) mg/dL Creatinine (0.66-1.25) mg/dL Glucose (74-99) mg/dL POC Glucose (mg/dL) 390 H 229 H 268 H (75-99) mg/dL 05/19/21 05/19/21 Range/Units 06:01 06:04 Sodium 131 L (137-145) mmol/L Chloride 79 L (98-107) mmol/L Carbon Dioxide 50 H* (22-30) mmol/L BUN 21 H (9-20) mg/dL Creatinine 0.30 L (0.66-1.25) mg/dL Glucose 231 H (74-99) mg/dL POC Glucose (mg/dL) 214 H (75-99) mg/dL Microbiology - Last 24 Hours (Table) 05/14/21 19:35 Gram Stain - Final Sputum Sputum Culture - Final Pseudomonas aeruginosa [place] albicans
[2021-05-19] MEDS ORDERED: LIDOCAINE 1% INJ 10MG/ML (20 ML MDV) SQ ONE (14:16)
--- NOTE | 2021-05-19 14:47 | IR ---
EXAMINATION TYPE: IR cvc insert >=5 years DATE OF EXAM: 05/19/2021 COMPARISON: NONE CLINICAL HISTORY: Pneumonia Needs long-term intravenous access for antibiotics. PROCEDURE: Hand hygiene obtained with soap and water and alcohol-based hand rub. After informed consent, the skin overlying the left brachial vein was localized with ultrasound and n oted to be compressible and patent. An ultrasound image was obtained and submitted on the patient's chart. The overlying skin was prepped and draped and Lidocaine was used for local anesthesia. A ski n shaquille was made with a scalpel. Access was gained to the vein under ultrasound guidance with a 21 ga uge needle and a 0.018 inch wire was advanced. Access site was dilated with Peel-Away sheath and cat heter tailored to the appropriate length and advanced such that the distal tip is at the cavoatrial j unction. Spot image was obtained verifying placement. Catheter was fixed to the skin and a sterile dressing was placed following hemostasis. Catheter was aspirated and flushed with saline. Patient w as discharged in stable condition without complication.Maximal barrier technique is utilized. Ultras ound image is documented on the chart. Ultrasound used with sterile technique. Fluoro time and fluoroscopic images submitted to document procedure: 0.3 minutes fluoroscopy time, 57 intraoperative images document the procedure IMPRESSION: STATUS POST ULTRASOUND AND FLUOROSCOPIC GUIDED PICC LINE PLACEMENT, READY FOR USE. THIS PROCEDURE WAS PERFORMED BY THE UNDERSIGNED.
[2021-05-19 16:37] LABS: Glucose,Whole Blood 245 mg/dL (75-99)
[2021-05-19] MEDS: TAMSULOSIN 0.4 MG CAP.ER.24H PO SCH (17:10)
[2021-05-19 20:10] LABS: Glucose,Whole Blood 265 mg/dL (75-99)
[2021-05-19] MEDS: acetaZOLAMIDE 250 MG TAB PO SCH (20:26)
[2021-05-19] MEDS: ALPRAZolam 0.5 MG TAB PO PRN (20:27)
[2021-05-19] MEDS: MIRTAZAPINE 15 MG TAB PO SCH (20:27)
[2021-05-20] MEDS: MEROPENEM 1 GM in SODIUM CHLORIDE 0.9% 100 ML IVPB SCH ×3 (03:49→20:03)
[2021-05-20 06:11] LABS: Glucose,Whole Blood 198 mg/dL (75-99)
[2021-05-20] MEDS: INSULIN ASPART (NovoLOG) 100 UNIT/ML VIAL SQ SCH ×4 (06:52→22:15)
[2021-05-20] MEDS: methylPREDNISolone SOD SUCCI 125 MG/2 ML VIAL IV SCH (06:52)
[2021-05-20] MEDS: SERTRALINE 50 MG TAB PO SCH (08:37)
[2021-05-20] MEDS: acetaZOLAMIDE 250 MG TAB PO SCH ×2 (08:37→20:04)
[2021-05-20] MEDS: LORATADINE 10 MG TAB PO SCH (08:37)
[2021-05-20] MEDS: COLCHICINE 0.6 MG EACH PO SCH (08:37)
[2021-05-20] MEDS: FAMOTIDINE 20 MG TAB PO SCH (08:37)
[2021-05-20] MEDS: APIXABAN 5 MG TAB PO SCH ×2 (08:37→20:04)
[2021-05-20] MEDS: DILTIAZEM CD 180 MG CAP.ER.24H PO SCH (08:38)
[2021-05-20] MEDS: ALBUTEROL NEBULIZED 2.5 MG/3 ML INHALATION SCH ×4 (08:53→19:49)
[2021-05-20] MEDS: FLUTICASONE INHALATION SCH (09:05)
[2021-05-20] MEDS: VILANTER INHALATION SCH (09:05)
[2021-05-20] MEDS: UMECLIDIN BL INHALATION SCH (09:05)
--- NOTE | 2021-05-20 09:05 | P.PN ---
Progress Note - Text Progress Note Date: 05/20/21 Patient will require a bedside commode on discharge as he has been confined secondary to obstructive pulmonary disease. Patient also requires a walker on discharge secondary to shortness of breath related to COPD. Prescription was provided to case management who is working on discharge planning needs.
[2021-05-20 09:56] LABS: African American GFR (CKD) >90 (>60 ml/min/1.73 sqM); Blood Urea Nitrogen 26 mg/dL (9-20); Calcium 9.2 mg/dL (8.4-10.2); Chloride 82 mmol/L (98-107); Glucose 231 mg/dL (74-99); Non-African American GFR(CKD) >90 (>60 ml/min/1.73 sqM); Potassium 3.3 mmol/L (3.5-5.1); Sodium 133 mmol/L (137-145)
[2021-05-20 10:05] LABS: Anion Gap 7 mmol/L
[2021-05-20 10:12] LABS: Carbon Dioxide 44 mmol/L (22-30)
[2021-05-20 10:15] LABS: Basophils % (A) 0 %; Eosinophils % (A) 0 %; HCT 47.2 % (39.0-53.0); HGB 14.3 gm/dL (13.0-17.5); Lymphocytes # (A) 0.3 k/uL (1.0-4.8); Lymphocytes % (A) 2 %; MCH 29.2 pg (25.0-35.0); MCHC 30.3 g/dL (31.0-37.0); MCV 96.1 fL (80.0-100.0); Mean Platelet Volume 7.6; Monocytes # (A) 0.4 k/uL (0-1.0); Monocytes % (A) 3 %; Neutrophils # (A) 12.8 k/uL (1.3-7.7); Neutrophils % (A) 94 %; Platelet Count 311 k/uL (150-450); RBC 4.91 m/uL (4.30-5.90); RDW 14.1 % (11.5-15.5); WBC 13.6 k/uL (3.8-10.6)
[2021-05-20] MEDS ORDERED: Potassium Replacement Protocol 1 EACH MISC MISCELLANE PRN (10:45)
[2021-05-20] MEDS: POTASSIUM CHLORIDE ER 20 MEQ TAB.ER PO SCH ×2 (10:58→12:42)
[2021-05-20 11:42] LABS: Glucose,Whole Blood 247 mg/dL (75-99)
--- NOTE | 2021-05-20 13:56 | P.PN ---
Subjective This is a pleasant 55-year-old male past medical history significant for paroxysmal atrial fibrillation/flutter, COPD, hypertension and alpha-1 antitrypsin. He follows in the office with Dr. Lebron. He was initially seen and evaluated and we have been asked to see him again in consultation secondary to recurrent atrial flutter with rapid ventricular rates. Other than being short of breath he doesn't have any significant symptoms. He thinks he may have felt a little dizzy but isn't even very positive about that. He denies palpita tions or chest pain. Blood pressure 122/82 heart rate 91 afebrile maintaining oxygen saturation on nasal cannula. Laboratory data reviewed, CBC unremarkable, sodium 131, potassium 4.5, creatinine 0.29. Currently maintained on Cardizem infusion and Toprol 25 mg daily. 05/20/21 Pt seen and examined sitting up in bed in no acute distress. He denies chest pain or dizziness. Patient had PICC line place in left upper extremity. Blood pressure 119/68, heart rate 82, maintaining oxygen saturations on 4 L nasal cannula.. Repeat limited echocardiogram reveals respiratory variation across the mitral and tricuspid valve with a septal bounce noted. He continues to maintain sinus mechanism. 24-hr urine output 2.4 Liters. Laboratory data reviewed, sodium 133, potassium 3.3, BUN 26, serum creatinine 0.5 GENERAL: In no acute distress. NECK: Supple without JVD or thyromegaly. LUNGS: Breath sounds crackles in the bases to auscultation bilaterally. Respiration equal and unlabored. No wheezes, rales or rhonchi. HEART: Irregular rate and rhythm without murmurs, rubs or gallops. S1 and S2 heard. EXTREMITIES: Normal range of motion, 1+ bilateral lower extremity pitting edema. No clubbing or cyanosis. Peripheral pulses intact. ASSESSMENT Paroxysmal atrial tachycardia/atrial flutter Hypertension Acute exacerbation of COPD Alpha-1 antitrypsin deficiency Former nicotine Concern for possible constrictive pericarditis PLAN Replace potassium per protocol Restart Eliquis 5mg BID Will discharge on colchicine 0.6mg daily, and Lasix 20mg daily. Continue Cardizem 360mg daily Plan for patient to be discharged today. Recommend Follow up with Dr. Lebron in 1-2 weeks. Nurse Practitioner note has been reviewed, I agree with a documented findings and plan of care. Patient was seen and examined. Objective - Vital Signs Vital signs: Vital Signs Temp 97.5 F L 05/20/21 13:37 Pulse 82 05/20/21 13:37 Resp 12 05/20/21 13:37 BP 119/68 05/20/21 13:37 Pulse Ox 92 L 05/20/21 13:37 Intake & Output 05/19/21 05/20/21 05/20/21 18:59 06:59 18:59 Intake Total 360 100 240 Output Total 1000 1410 700 Balance -640 -2276 -929 Intake: Intake, IV Titration 100 Amount Meropenem 1 gm In Sodium 100 Chloride 0.9% 100 ml @ 33 .3 mls/hr IVPB Q8H [facility] Rx #:[id number] Oral 360 240 Output: Urine 1000 1410 700 - Labs CBC & Chem 7: 05/20/21 08:57 05/20/21 08:57 Labs: Abnormal Lab Results - Last 24 Hours (Table) 05/19/21 05/19/21 05/20/21 Range/Units 16:34 20:09 06:10 WBC (3.8-10.6) k/uL MCHC (31.0-37.0) g/dL Neutrophils # (1.3-7.7) k/uL Lymphocytes # (1.0-4.8) k/uL Sodium (137-145) mmol/L Potassium (3.5-5.1) mmol/L Chloride (98-107) mmol/L Carbon Dioxide (22-30) mmol/L BUN (9-20) mg/dL Creatinine (0.66-1.25) mg/dL Glucose (74-99) mg/dL POC Glucose (mg/dL) 245 H 265 H 198 H (75-99) mg/dL 05/20/21 05/20/21 05/20/21 Range/Units 08:57 08:57 11:39 WBC 13.6 H (3.8-10.6) k/uL MCHC 30.3 L (31.0-37.0) g/dL Neutrophils # 12.8 H (1.3-7.7) k/uL Lymphocytes # 0.3 L (1.0-4.8) k/uL Sodium 133 L (137-145) mmol/L Potassium 3.3 L (3.5-5.1) mmol/L Chloride 82 L (98-107) mmol/L Carbon Dioxide 44 H* (22-30) mmol/L BUN 26 H (9-20) mg/dL Creatinine 0.53 L (0.66-1.25) mg/dL Glucose 231 H (74-99) mg/dL POC Glucose (mg/dL) 247 H (75-99) mg/dL
--- NOTE | 2021-05-20 14:31 | P.PN ---
Subjective Progress Note Date: 05/20/21 Principal diagnosis: Shortness of breath 55-year-old white male patient with history of severe COPD/emphysema, alpha-1 antitrypsin deficiency,, with baseline FEV1 of 19% of predicted and severe diffusion abnormality of 40% of predicted. Patient was recently hospitalized 10/27/2020 through 11/01/2020 and later on hospitalized between 11/23/2020 and 12/01/2020 for acute exacerbation of severe COPD. He is on nebulized DuoNeb, Trelegy Ellipta [phone] one puff inhalation daily. The patient also has a a a AVAPS machine at home but utilizes for chronic hypercapnic respiratory failure and recurrent COPD exacerbation. Patient is an ex-smoker, however has not smoked 1 year, prior to that smoked for 36 years pack a day, in addition had smoked marijuana. His other medical history hypertension, his blood pressure medication had to be by his primary care physician Dr. Juan C Gifford furthermore, worked up this patient for endobronchial valve insertion/lung volume reduction a nd as part of his workup, he underwent a high resolution computed tomography scan of the chest and this was consistent with COPD and he underwent a blood gas that showed significant CO2 retention with a pCO2 of 75 and a pH of 7.4 and a pO2 of 44 and this was on room air oxygen. Based on his underlying CO2 retention, he was essentially got disqualified for endobronchial valve insertion. I was coordinating all this work through this patient and [facility]. Based on all this, the skin is a case of advanced, and states COPD with recurrent hospitalization. The most recent hospitalization for this patient was an 03/27/2021 and the patient was discharged home on 03/31/2021. He is a nonsmoker. He presented back to the hospital because of worsening shortness of breath. He denied having any smoking history. He was taking prednisone 20 mg by mouth daily in addition to other maintenance stop the medications. I'm not absolutely sure the patient was still using his AV APS machine. The patient was placed on 6 L about 2 by nasal cannula to bring his saturation above 90%. White cell count was at 12.9. Sodium level was 123. Troponins 3 has been 0.01 and COVID-19 testing was negative. Chest x-ray showed hyperinflation and diffuse emphysema. EKG showed atrial flutter rhythm. No altered mentation. No pleurisy. No hemoptysis. No chest pain. She was given IV fluids. Sodium level improved from 123 at baseline is up to 1:30. Serum bicarb is above 40. Creatinine is at 0.4 with a BUN of 11. White cell count is at 7.39. On today's evaluation on 05/13/2021 patient is seen in follow-up on medical surgical floor. He is resting comfortably in bed, appears to be less dyspneic although he states his breathing is about the same, however not worsened since admission. Breathing comfortably, he is currently on 4 L of oxygen, his pulse ox is 97%, his been afebrile overnight, lung sounds are extremely diminished, without rhonchi or wheezing. Abiotic in the form of Rocephin and azithromycin in the emergency department for possibility of underlying pneumonia. Patient also continues on IV Cipro medical 60 mg every 6 hours, the emergency department he was in a flutter with 421 conduction, his heart rate is controlled, he is on Eliquis. His brought his AVAPS machine in today. Patient is on automatic settings, he is very compliant with that, he wears it every night at home. Today's labs have been reviewed, his white blood cell count is improved and is down to 7.39, hemoglobin is 13.5, his serum sodium is improving and is up to 1:30, potassium is 5.3, CO2 is greater than 40, and patient does have chronic hypoxic and hypercapnic respiratory failure, in addition he was given some diuretics in the emergency department, he is currently on 0.9 normal saline at a rate of 75 ML per hour. His 3 sets of cardiac troponins were negative. He tested negative for COVID-19. CT chest was ordered and showed no evidence of pulmonary embolism, he did not COPD with moderate emphysema, brought This is, areas of endobronchial plugging, and tree-in-bud opacities. There was also superimposed acute bronchiolitis, and there is josefina consolidation at the posterior right base highly suggestive of pneumonia. In the past patient had sputum cultures positive for pseudomonas At today's evaluation 05/10/2021 patient seen in follow-up on medical surgical floor. He is resting comfortably in bed, currently on 4 L of oxygen, his pulse ox is 96%, afebrile, he did wear his AVAPS machine last night. The patient has Had no acute events overnight, he remains on high-dose IV steroids 60 mg every 6 hours, we switched his antibiotic coverage to Levaquin and cefepime yesterday, he is on nebulized bronchodilators. No hemoptysis, no chest discomfort, lung sounds are extremely diminished, patient is very short of breath with any exertion however this is chronic for him. His white count today is 11.04, hemoglobin is 13, sodium is 135, potassium is 4.8, chloride is 86, CO2 is greater than 40, B1 is 12, creatinine is 0.3. Pro-calcitonin level was 0.06 On today's evaluation on 05/15/2021 patient seen in follow-up on medical surgical floor. This morning patient was noted to be more lethargic, poorly responsive, and a rapid response team was called for evaluation. Apparently last night he did not wear his home AVAPS, and this morning he was noted to be more confused, more ALLERGIC, and he had stooled on himself. His AVAPS device mask does not fit him well anymore, and for that reason patient has not been wearing it consistently. Patient has advanced stage IV COPD, with chronic hypoxic and hypercapnic respiratory failure. He was placed on BiPAP support with pressures of 12 and 6 and FiO2 of 35%, he is currently satting 94%, currently afterward the blood gas was completed showing pO2 of 56, pCO2 of 100, and pH of 7.33, this was done on FiO2 of 32%. Patient is tolerating BiPAP very well, he states he is comfortable on that, and he likes the mask better. He subsequently became a bit more responsive, he is breathing easier. The rest of blood work has been reviewed, showing white blood cell, 10.9, hemoglobin of 14.1, sodium of 131, potassium is 5.0, chloride is 84, CO2 was 45, BUN of 17, creatinine 0.20. His pro calcitonin level was low at 0.06, patient was placed on empiric antibiotics in the form of cefepime and Levaquin for possibility of COPD, and tracheobronchitis. He is on IV Solu-Medrol 60 mg every 6 hours and nebulized bronchodilators On today's evaluation on 05/16/2021 patient is being transferred to selective care unit related to Isabella dick with RVR, patient has been started on Cardizem infusion which is currently running at 5 mg per hour, he did wear BiPAP support last night with pressures of 12/6 and FiO2 of 32%. Tolerated it very well, he is currently back on 5 L per nasal cannula, breathing comfortably, other than A. fib with RVR, other vital signs have been stable, his been afebrile, blood pressure is been stable. His chest x-ray today shows reticulonodular infiltrates, hyperinflation. Patient remains on a combination of Levaquin and cefepime, pro calcitonin level was low, he is not coughing up significant amount of secretions, he remains on IV Solu-Medrol 60 mg every 6 hours, today's labs have been reviewed, his white blood cell count is 9.8, hemoglobin is 13.8, later count is 302, sodium is 131, potassium is 4.5, chloride is 83, CO2 is 43, B1 is 21, creatinine is 0.29. on 05/17/2021 patient seen in follow-up on Selective care floor. he is up in the chair today, breathing comfortably, 4 L of oxygen with pulse ox of 94%. he were the BiPAP support last night. vital signs have been stable, his been afebrile, his breathing comfortably, he remains on a combination of Levaquin and cefepime, his sputum culture still pending, it did show gram-negative bacilli, and [place] albicans. today's labs are pending for now. No complaints of chest pain, no hemoptysis, his [place] from 05/13/2021 was negative at 0.06. CTA chest showed no evidence of pulmonary embolism, it did show COPD with moderate emphysema, and widespread bronchiectasis and areas of endobronchial plugging. There was new and consolidation at the posterior right base that was suggestive of pneumonia, and pericardial calcifications with prior pericarditis were noted. However echocardiogram showed preserved LV function with EF of 55%. mild MR and mild TR. patient denies any chest pain, he is on Eliquis 5 mg twice a day for A. fib with RVR. on 05/18/2021 patient is seen in follow-up on selective care unit, his sputum culture finalized with pseudomonas aeruginosa which was resistant to both of the antibiotics that she is on which include cefepime and Levaquin. Clinically patient is doing great, he is awake and alert, oriented 3, appears to be no acute distress, currently on 4 L of oxygen, with a pulse ox of her percent, she is utilizing BiPAP support at night. Afebrile, vital signs have been stable, and a chest x-ray today, today's labs have been reviewed, BNP was completed only, no CBC, sodium is 128, potassium is 4.4, chloride 82, CO2 35, B1 is 23, creatinine 0.29. Patient is receiving intermittent doses of Lasix cardiology. Negative net fluid 1.6 L fluid balance of last 24 hours. On 05/20/2021 patient seen in follow-up on selective care unit. He is up in the chair, he is currently on 4 L of oxygen, his pulse ox is 92%, his been afebrile, hemodynamically his been stable, he is breathing comfortably, he has been wearing BiPAP support at night. He does have a AVAPS units at home. His last chest x-ray showed residual patchy infiltrate in the posterior right base of the lateral view. Clinically has been stable, he is on meropenem for antibiotic coverage in view of resistant pseudomonas aeruginosa. He had a PICC line placed yesterday, patient is being discharged home today, and we recommend 2 week course of IV meropenem infusions. He has also been on Lasix per cardiology, he has been diuresing quite extensively, and he is in -1.9 L of net fluid balance over the last 24 hours, yesterday Diamox was also added in view of metabolic alkalosis which was worsening in view of diuretic therapy. The CO2 level is 44, improved, his white count is 13.6, hemoglobin is 14.3, sodium is 133, potassium is 3.3, chloride is 82, BUN is 26, creatinine 0.53. Objective - Vital Signs Vital signs: Vital Signs Temp 97.5 F L 05/20/21 13:37 Pulse 82 05/20/21 13:37 Resp 12 05/20/21 13:37 BP 119/68 05/20/21 13:37 Pulse Ox 92 L 05/20/21 13:37 Intake & Output 05/19/21 05/20/21 05/20/21 18:59 06:59 18:59 Intake Total 360 100 480 Output Total 1000 1410 700 Balance -640 -1310 -220 Intake: Intake, IV Titration 100 Amount Meropenem 1 gm In Sodium 100 Chloride 0.9% 100 ml @ 33 .3 mls/hr IVPB Q8H [facility] Rx #:[id number] Oral 360 480 Output: Urine 1000 1410 700 - Exam GENERAL EXAM: Alert, very pleasant, 55-year-old white male, up in the chair, currently on 4 L of oxygen, resting comfortably, with pulse ox of 94% comfortable in no apparent distress. HEAD: Normocephalic/atraumatic. EYES: Normal reaction of pupils, equal size. Conjunctiva pink, sclera white. NOSE: Clear with pink turbinates. THROAT: No erythema or exudates. NECK: No masses, no JVD, no thyroid enlargement, no adenopathy. CHEST: No chest wall deformity. Symmetrical expansion. LUNGS: Equal air entry with diminished breath sounds bilaterally, and minimal crackles at the right base CVS: Regular rate and rhythm, normal S1 and S2, no gallops, no murmurs, no rubs ABDOMEN: Soft, nontender. No hepatosplenomegaly, normal bowel sounds, no gu arding or rigidity. EXTREMITIES: No clubbing, no edema, no cyanosis, 2+ pulses and upper and lower e xtremities. MUSCULOSKELETAL: Muscle strength and tone normal. SPINE: No scoliosis or deformity SKIN: No rashes CENTRAL NERVOUS SYSTEM: Alert and oriented -3. No focal deficits, tone is normal in all 4 extremities. PSYCHIATRIC: Alert and oriented -3. Appropriate affect. Intact judgment and insight. - Labs CBC & Chem 7: 05/20/21 08:57 05/20/21 08:57 Labs: Abnormal Lab Results - Last 24 Hours (Table) 05/19/21 05/19/21 05/20/21 Range/Units 16:34 20:09 06:10 WBC (3.8-10.6) k/uL MCHC (31.0-37.0) g/dL Neutrophils # (1.3-7.7) k/uL Lymphocytes # (1.0-4.8) k/uL Sodium (137-145) mmol/L Potassium (3.5-5.1) mmol/L Chloride (98-107) mmol/L Carbon Dioxide (22-30) mmol/L BUN (9-20) mg/dL Creatinine (0.66-1.25) mg/dL Glucose (74-99) mg/dL POC Glucose (mg/dL) 245 H 265 H 198 H (75-99) mg/dL 05/20/21 05/20/21 05/20/21 Range/Units 08:57 08:57 11:39 WBC 13.6 H (3.8-10.6) k/uL MCHC 30.3 L (31.0-37.0) g/dL Neutrophils # 12.8 H (1.3-7.7) k/uL Lymphocytes # 0.3 L (1.0-4.8) k/uL Sodium 133 L (137-145) mmol/L Potassium 3.3 L (3.5-5.1) mmol/L Chloride 82 L (98-107) mmol/L Carbon Dioxide 44 H* (22-30) mmol/L BUN 26 H (9-20) mg/dL Creatinine 0.53 L (0.66-1.25) mg/dL Glucose 231 H (74-99) mg/dL POC Glucose (mg/dL) 247 H (75-99) mg/dL Assessment and Plan Plan: #1. Acute on chronic hypoxic and hypercapnic respiratory failure related to acute exacerbation of COPD and right lower lobe pneumonia . COVID 19 was negative. Patient has advanced lung disease. The patient has had recurrent COPD exacerbations. His current chest x-ray showing some increased interstitial markings bilaterally. The patient has had recurrent hospitalization the patient has been hospitalized almost every 2 months for ongoing COPD related complications. For now, denies any signs of an infection. He has limited on T relegy Ellipta one inhalation a day, prednisone 20 mg by mouth daily and albuterol neb regimen sound the clock. He also has a a AVAPS machine at home which probably is not using on a regular basis. He is a nonsmoker. His baseline FEV1 is noted of 19% of predicted. Extremely poor baseline performance and functional status. Also looks cachectic and malnourished. #2. Severe COPD, baseline FEV1 of 19% of predicted, stage IV COPD, on home oxygen at 4 L . The patient is a chronic CO2 retainer. He was not found to be a candidate for endobronchial [place] valve insertion because of chronic h ypercapnic respiratory failure. #3. Alpha-1 anti-trypsin efficiency #4. 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 Hypertension #6. PAF/flutter current rhythm is sinus and the patient is on long-term anticoagulation with Eliquis.. The patient was in a flutter at the time of admission was 4:1 conduction block and heart rate is improved right now and is under better control. 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 His current heart rate is in the mid 80s. #7. borderline concentric LVH/hypertensive heart disease with a preserved LV function and ejection fraction of 6065%, mild pulmonary hypertension #8. previous sputum colonization/infection with pseudomonas aeruginosa based on the sputum analysis that was done on 11/24/2020 and 03/02/2021. #9. Episode of A. fib with RVR, patient is currently started on Cardizem infusion at 5 mg per hour, will be transferred to selective care unit, he is already on Eliquis for history of paroxysmal atrial fibrillation #10. pericardial calcifications compatible with prior pericarditis noted on the CTA chest, with possibility of restrictive pericarditis. #11. 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 Gaytan in the office in 2 weeks I performed a history & physical examination of the patient and discussed their management with my nurse practitioner, Elida Cardoso. I reviewed the nurse practitioner's note and agree with the documented findings and plan of care. Lung sounds are positive for crackles at the right base throughout the lung miles. The findings and the impression was discussed with the patient. I attest to the documentation by the nurse practitioner. Time with Patient: Less than 30
--- NOTE | 2021-05-20 16:51 | P.PN ---
Subjective Progress Note Date: 05/20/21 This is a pleasant 55 years old male with past medical history of hypertension, COPD secondary to alpha-1 antitrypsin deficiency, pancreatitis and atrial fibrillation on Eliquis. 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 Gaytan Presents because of one-day of dyspnea cough and green phlegm for the last couple days with no chest pain No GI or urinary symptoms. He denies smoking, alcohol or illicit drugs He's on 4 L oxygen via nasal cannula at home and 20 mg of prednisone daily. He is currently saturating 90-97% on 6 L oxygen via nasal cannula, and afebrile and dressed vitals are stable Labs showing mild leukocytosis of 12.9 K, sodium 123, his sodium went baseline is ranging 126-135 potassium 6.0, creatinine 0.18. Troponin are negative 3 at 0.018, less than 0.012 and less than 0.012. And coronavirus not detected. Chest x-ray showing increased mild opacity may represent atelectasis or infiltrate, chronic micronodular T EKG showing atrial flutter with a 421 A-V block conduction and a rate of 82, QTC 411 Chest x-ray showed increased mild opacity may represent atelectasis or infiltrate In the emergency room he was started on ceftriaxone and Zithromax, Solu-Medrol 40 mg and her symptom IV fluids On admission pulmonary team were consulted 05/13/21 Patient oxygen requirement now at 4 L/m which is his baseline at home however is still tachypneic. He looks lethargic and withdrawn in bed mostly related to his dyspnea. No significant chest pain or coughing. Other vitals are stable. Labs improvement with WBC back to normal. Sodium improved to 1:30 Today he has CTA of the chest was showing no PE, moderate emphysema with advanced COPD and widespread bronchiectasis with acute bronchitis and right bas al pneumonia. Echocardiogram was suspicious for a mass in the IVC next to our a however this was not mentioned in the CTA, besides jointer submarine cable on the case Pulmonary consult following patient closely TobraDex was his wish to cefepime and Levaquin for hospital-acquired pneumonia. He is also on Solu-Medrol 60 mg on home dose of Polycose 05/14/2021 He is significantly less tachypneic compared to yesterday. He is at baseline of 4 L/m of oxygen similar to yesterday. He is using his breathing machine overnight. Other than that he is hemodynamically stable, labs showing mild leukocytosis while he is on steroids. Yesterday he was started on cefepime and Levaquin, secondary to right lower lobe pneumonia suspected on CT of the chest. howevercalcitonin came back negative today at 0.06. So lower the dose of cefepime to 1 g twice a day. Is on Solu- Medrol 60 mg as well as home dose of Eliquis. For his A. fib 05/15/2021 Patient. This morning he was attended and a-team was called, it turns out he has CO2 retention and improved with BiPAP setting of / and FiO2 of 35% to keep oxygen saturating more than 88%. After BiPAP placement his back to basic mentation. He was fully awake and oriented to time, place and person. He is ordered and surrounded. However because of BiPAP was switched his oral medication to IV or subcutaneous included Lovenox instead of Eliquis and IV Levaquin. Also he has some urinary retention which is been going on at home with straight cath. No need for urinalysis as he is already on broad-spectrum antibiotics. Flomax has been added. His labs looks stable with WBC is 10.9, sodium 131 and CO2 45. He remains on cefepime and Levaquin as well as Solu-Medrol 60 mg of subcutaneous Lovenox 60 mg twice a day therapeutic dose 05/16/2021 Patient today this morning he was doing better, his breathing was quite correct than the last couple days. He still needed to use his BiPAP during the night however in the morning is back to 4-5 L of oxygen nasal. His breathing looks easier and chest x-ray was showing critical nodular infiltrates bilaterally with hyperinflated COPD chest over when I review of the chest x-ray by myself and shows improvement compared to one from 05/12. However later on and a-team was called because of tachycardia up to 160 secondary to a flutter/fib, he was started on Cardizem drip and metoprolol 25 mg daily and transferred to select units Also he has evidence of urinary retention, recurrent Dr. him in the morning he preferred to do straight cath only, Flomax was started, however during a-team Mcgill catheter was placed 05/17/2021 Patient is breathing easier today, he is on 2 L oxygen via nasal cannula with saturation of 95%. Other vitals are stable, afebrile. Also heart rate is controlled today on 90 bpm while he is off Cardizem drip His labs are stable with normal WBC at 8.9, sodium stable at 131 and CO2 and 43 coming down. He is metoprolol was switched to Cardizem 360 mg, his TSH is low at 0.3 and T4 slightly low at 0.59, most likely sick euthyroid. His sputum culture is growing gram-negative bacilli and car[place] albicans. He is currently continued on cefepime and oral Levaquin, anticoagulation and switched back to his home dose of Eliquis. He is on Solu-Medrol 60 mg. Mcgill catheter is still in place, explained to the patient importance of keeping of the flow of urine going otherwise he will be at risk of renal failure (Mcgill catheter was initially placed yesterday during the a-team ) 05/18/2021 Patient is evaluated today sitting up in the chair. He states that his indwelling catheter has been removed. Patient states that he is not having any issues urinating. Patient reports that he wears 4 L nasal cannula at home, patient is maintaining oxygen saturation at 94% on 4 L nasal cannula today. Patient's sputum culture has been finalized to grow Pseudomonas, carolina. Medical sensitivity showed resistance to cefepime, azithromycin. Patient has been changed to meropenem from pulmonary services. Patient will continue on IV steroids. Patient does have his home trelegy inhaler at the bedside, and states that he is using it as prescribed. Sodium has dropped to 128 today, blood glucose is elevated at 390. Patient's TSH and free T4 remain below normal limits. Patient states that he is frustrated because he has had frequent admissions for COPD exacerbation, he states that he feels weaker with every admission. Physical therapy at the time is recommended home with home care, patient was able to tolerate bed mobility and was able to stand with standby assistance patient is currently denying any chest pain, palpitations. He does report some cough with dark green sputum, and dyspnea with exertion. Patient reports a fair appetite, denies nausea, vomiting, diarrhea. Patient denies any dizziness or lightheadedness. 05/19/2021 Patient is scheduled for a right left heart cath tomorrow with cardiology. Patient's CO2 was 50 today, continue on BiPAP. Infectious disease has been consultative, discharge planning recommendations. Patient denies any pain today, reports productive cough, denies any chest pain, shortness of breath. Sodium has improved to 131. Patient is still being followed closely by coronary services, IV antibiotics changed to meropenem. Vital signs remained stable, afebrile, BP 140/82, 73 sinus rhythm, 97% on 5 L nasal cannula. Wean oxygen as tolerated. 05/20/2021 Patient is seen and evaluated in follow-up and initially was scheduled to be discharged with antibiotic recommendations received from pulmonary services and close outpatient follow-up with them and continued BiPAP at night and continued breathing inhalational treatments. Patient was attempting to get up to go to the bathroom and fell striking his head causing a skin tear with no loss of consciousness and CT brain was ordered. Potassium slightly low this morning at 3.3 and replaced per protocol and will repeat labs. Creatinine is 0.53 with a BUN of 26. Sodium is 133. White blood count is 13.6 and hemoglobin is 14.3. Patient is continued on Accu-Cheks and sliding scale and will continue. Patient denies any chest pain or palpitations. Patient denies any worsening shortness of breath continues to be short of breath with exertion. Patient is on 4 L via nasal cannula. Patient is afebrile. Patient is continued on IV antibiotics in the form of meropenem as sputum cultures finalized showing Pseudomonas aeruginosa along with [place] albicans and will add Diflucan. Patient also continues on Diamox for diuresis with pulmonary following closely. Continue on oral prednisone. Constitutional: Reports fatigue denied any fever. Cardio vascular: denied any chest pain, palpitations Gastrointestinal denied any nausea vomiting Pulmonary: Reports cough, dyspnea with exertion Neurologic denied any new focal deficits All inpatient medications were reviewed and appropriate changes in these medications as dictated in the interval history and assessment and plan. Active Medications Acetaminophen (Acetaminophen Tab 325 Mg Tab) 650 mg PO Q6HR PRN PRN Reason: Mild Pain or Fever > 100.5 Acetazolamide (Acetazolamide 250 Mg Tab) 250 mg PO BID FORMERLY [facility], [facility]1983 Last Admin: 05/20/21 08:37 Dose: 250 mg Documented by: Albuterol Sulfate (Albuterol Nebulized 2.5 Mg/3 Ml) 2.5 mg INHALATION RT-QID FOR[facility]LY [facility], [facility]1983 Last Admin: 05/20/21 12:47 Dose: 2.5 mg Documented by: Albuterol Sulfate (Albuterol Nebulized 2.5 Mg/3 Ml) 2.5 mg INHALATION RT-Q2H PRN PRN Reason: Shortness Of Breath Or Wheezing Alprazolam (Alprazolam 0.5 Mg Tab) 0.5 mg PO TID PRN PRN Reason: Anxiety Last Admin: 05/19/21 20:27 Dose: 0.5 mg Documented by: Apixaban (Apixaban 5 Mg Tab) 5 mg PO BID FORMERLY [facility], [facility]; Protocol Last Admin: 05/20/21 08:37 Dose: 5 mg Documented by: Colchicine (Colchicine 0.6 Mg Each) 0.6 mg PO DAILY FOR[facility]LY [facility], [facility]1983 Last Admin: 05/20/21 08:37 Dose: 0.6 mg Documented by: Diltiazem HCl (Diltiazem Cd 180 Mg Cap.Er.24h) 360 mg PO DAILY [facility], [facility]1983 Last Admin: 05/20/21 08:38 Dose: 360 mg Documented by: Famotidine (Famotidine 20 Mg Tab) 20 mg PO DAILY [facility], [facility] Last Admin: 05/20/21 08:37 Dose: 20 mg Documented by: Meropenem 1 gm/ Sodium (Chloride) 100 mls @ 33.3 mls/hr IVPB Q8H [facility], [facility]; Protocol Last Admin: 05/20/21 12:41 Dose: 33.3 mls/hr Documented by: Insulin Aspart (Insulin Aspart (Novolog) 100 Unit/Ml Vial) 0 unit SQ ACHS [facility], [facility]; Protocol Last Admin: 05/20/21 12:40 Dose: 4 unit Documented by: Loratadine (Loratadine 10 Mg Tab) 10 mg PO DAILY [facility] Last Admin: 05/20/21 08:37 Dose: 10 mg Documented by: Melatonin (Melatonin 5 Mg Tablet) 10 mg PO HS PRN PRN Reason: Insomnia Last Admin: 05/17/21 20:42 Dose: 10 mg Documented by: Mirtazapine (Mirtazapine 15 Mg Tab) 7.5 mg PO HS CLAUDE Last Admin: 05/19/21 20:27 Dose: 7.5 mg Documented by: Miscellaneous Information (Potassium Replacement Protocol 1 Each Misc) 1 each MISCELLANE DAILY PRN; Protocol PRN Reason: Per Protocol Patient's Own ( Fluticasone/Umeclidin/Vilanter [ Trelegy Ellipta 100- 62.5-25] 1 Each Bl 1 puff INHALATION RT-DAILY [facility], [facility] Last Admin: 05/20/21 09:05 Dose: Not Given Documented by: Ondansetron HCl (Ondansetron 4 Mg/2 Ml Vial) 4 mg IVP Q8HR PRN PRN Reason: Nausea And Vomiting Prednisone (Prednisone 10 Mg Tab) 30 mg PO DAILY [facility] Sertraline HCl (Sertraline 50 Mg Tab) 50 mg PO DAILY [facility] Last Admin: 05/20/21 08:37 Dose: 50 mg Documented by: Sodium Chloride (Sodium Chloride 0.9% Flush 10 Ml Syringe) 10 ml IV Q4HR PRN PRN Reason: PICC Line Sodium Chloride (Sodium Chloride 0.9% Flush 10 Ml Syringe) 10 ml IV WEEKLY [facility], [facility] Sodium Chloride (Sodium Chloride 0.9% Flush 10 Ml Syringe) 20 ml IV Q4HR PRN PRN Reason: PICC Line Tamsulosin HCl (Tamsulosin 0.4 Mg Cap.Er.24h) 0.4 mg PO PC-SUPPER FOR[facility], [facility] Last Admin: 05/19/21 17:10 Dose: 0.4 mg Documented by: Physical exam: GENERAL: The patient is alert and oriented x3, weak, Well developed, well nourished. Temp is 97.5F, pulse is 82, respirations are 12, blood pressure is 119/68, oxygen saturation is 92% on 4 L via nasal cannula. HEENT: Pupils are round and equally reacting to light. EOMI. No scleral icterus. No conjunctival pallor. Normocephalic, atraumatic. No pharyngeal erythema. No thyromegaly. CARDIOVASCULAR: S1 and S2 muffled PULMONARY: Diminished breath sounds bilaterally with scattered rhonchi and crackles noted. No significant wheezing. No crepitation ABDOMEN: Soft, nontender, nondistended, normoactive bowel sounds. No palpable organomegaly. MUSCULOSKELETAL: No joint swelling or deformity. EXTREMITIES: No cyanosis, clubbing, or pedal edema. NEUROLOGICAL: Gross neurological examination did not reveal any focal deficits. Diffusely weak. SKIN: No rashes. no petechiae. Assessment: A. fib/flutter with RVR Mechanical fall with head injury and no loss of consciousness Acute COPD exacerbation, advance to stage with FEV1 of 19%, and widespread bronchiectasis with acute bronchitis and moderate emphysema. Right lower lobe pneumonia secondary to Pseudomonas Acute CO2 retention with respiratory acidosis, improved with BiPAP Possible constrictive pericarditis Acute urinary retention status post Mcgill catheter Atrial flutter with 4:1 A-V conduction, cardiology team signed off History of alpha-1 antitrypsin deficiency Hypertension Chronic hyponatremia Chronic atrial fibrillation on Eliquis and raped is controlled. Currently is on a flutter with 4:1 A-V conduction History of pancreatitis DVT prophylaxis GI prophylaxis Full code with no mechanical ventilation Plan: Recommend to continue with current medications, management, and symptomatic treatment. Continue with breathing inhalational treatments along with oral prednisone. Patient did receive a PICC line and will be continued on IV Merrem per pulmonary with close monitoring. Patient was initially being discharged and awaiting for family to arrive to go for discharge paperwork and got up to the bathroom and fell striking his head causing a skin tear with no loss of co nsciousness. CT of the brain was ordered and pending at this time. Recommend close monitoring overnight and will reevaluate in the morning. Patient does take Eliquis which has been resumed per cardiology services. Patient was scheduled to undergo possible heart catheterization which has been canceled. Will await CT report and continue to monitor closely. Recommend to continue with BiPAP at night and as needed. due to multiple complex medical issues, adenosis is extremely guarded. Further recommendations to follow based on the clinical course of the patient. Objective - Vital Signs Vital signs: Vital Signs Temp 98 F 05/20/21 07:58 Pulse 94 05/20/21 09:04 Resp 12 05/20/21 07:58 BP 144/83 05/20/21 07:58 Pulse Ox 89 L 05/20/21 07:58 Intake & Output 05/19/21 05/20/21 05/20/21 18:59 06:59 18:59 Intake Total 360 100 Output Total 1000 1410 Balance -640 -1310 Intake: Intake, IV Titration 100 Amount Meropenem 1 gm In Sodium 100 Chloride 0.9% 100 ml @ 33 .3 mls/hr IVPB Q8H [facility], [facility]1983 Rx #:[id number] Oral 360 Output: Urine 1000 1410 - Labs CBC & Chem 7: 05/20/21 08:57 05/20/21 08:57 Labs: Abnormal Lab Results - Last 24 Hours (Table) 05/19/21 05/19/21 05/19/21 Range/Units 11:43 16:34 20:09 WBC (3.8-10.6) k/uL MCHC (31.0-37.0) g/dL Neutrophils # (1.3-7.7) k/uL Lymphocytes # (1.0-4.8) k/uL Sodium (137-145) mmol/L Potassium (3.5-5.1) mmol/L Chloride (98-107) mmol/L Carbon Dioxide (22-30) mmol/L BUN (9-20) mg/dL Creatinine (0.66-1.25) mg/dL Glucose (74-99) mg/dL POC Glucose (mg/dL) 254 H 245 H 265 H (75-99) mg/dL 05/20/21 05/20/21 05/20/21 Range/Units 06:10 08:57 08:57 WBC 13.6 H (3.8-10.6) k/uL MCHC 30.3 L (31.0-37.0) g/dL Neutrophils # 12.8 H (1.3-7.7) k/uL Lymphocytes # 0.3 L (1.0-4.8) k/uL Sodium 133 L (137-145) mmol/L Potassium 3.3 L (3.5-5.1) mmol/L Chloride 82 L (98-107) mmol/L Carbon Dioxide 44 H* (22-30) mmol/L BUN 26 H (9-20) mg/dL Creatinine 0.53 L (0.66-1.25) mg/dL Glucose 231 H (74-99) mg/dL POC Glucose (mg/dL) 198 H (75-99) mg/dL
[2021-05-20 16:54] LABS: Glucose,Whole Blood 299 mg/dL (75-99)
--- NOTE | 2021-05-20 17:42 | CT ---
EXAMINATION TYPE: CT brain wo con DATE OF EXAM: 05/20/2021 COMPARISON: None HISTORY: Head trauma status post fall without LOC. CT DLP: 1100.4 mGycm Automated exposure control for dose reduction was used. Ventricles have normal size. There is no mass effect nor midline shift. There is no sign of intracran ial hemorrhage. Calvarium is intact. There is no evidence of cerebral edema. There is fairly normal a eration of the temporal bones. IMPRESSION: Negative unenhanced head CT scan.
[2021-05-20] MEDS: TAMSULOSIN 0.4 MG CAP.ER.24H PO SCH (17:49)
[2021-05-20] MEDS: MIRTAZAPINE 15 MG TAB PO SCH (20:03)
[2021-05-20 20:28] LABS: Glucose,Whole Blood 300 mg/dL (75-99)
[2021-05-20] MEDS: ALPRAZolam 0.5 MG TAB PO PRN (21:42)
[2021-05-20] MEDS: FLUCONAZOLE 100 MG TAB PO SCH (22:15)
[2021-05-21] MEDS: MEROPENEM 1 GM in SODIUM CHLORIDE 0.9% 100 ML IVPB SCH (04:49)
[2021-05-21 06:24] LABS: Glucose,Whole Blood 109 mg/dL (75-99)
[2021-05-21] MEDS: INSULIN ASPART (NovoLOG) 100 UNIT/ML VIAL SQ SCH (06:31)
[2021-05-21 08:05] VITALS: BP 132/73; RESP 22; TEMP 98.2
[2021-05-21] MEDS: LORATADINE 10 MG TAB PO SCH (08:06)
[2021-05-21] MEDS: FLUCONAZOLE 100 MG TAB PO SCH (08:06)
[2021-05-21] MEDS: FAMOTIDINE 20 MG TAB PO SCH (08:06)
[2021-05-21] MEDS: SERTRALINE 50 MG TAB PO SCH (08:06)
[2021-05-21] MEDS: DILTIAZEM CD 180 MG CAP.ER.24H PO SCH (08:06)
[2021-05-21] MEDS: APIXABAN 5 MG TAB PO SCH (08:06)
[2021-05-21] MEDS: acetaZOLAMIDE 250 MG TAB PO SCH (08:08)
[2021-05-21] MEDS: COLCHICINE 0.6 MG EACH PO SCH (08:08)
[2021-05-21] MEDS: ALBUTEROL NEBULIZED 2.5 MG/3 ML INHALATION SCH ×2 (08:15→12:38)
[2021-05-21] MEDS: FLUTICASONE INHALATION SCH (08:17)
[2021-05-21] MEDS: VILANTER INHALATION SCH (08:17)
[2021-05-21] MEDS: UMECLIDIN BL INHALATION SCH (08:17)
[2021-05-21 08:31] VITALS: PULSE 84
[2021-05-21] MEDS ORDERED: predniSONE 10 MG TAB PO SCH (09:00)
[2021-05-21 10:33] LABS: African American GFR (CKD) >90 (>60 ml/min/1.73 sqM); Anion Gap 10 mmol/L; Blood Urea Nitrogen 24 mg/dL (9-20); Calcium 9.4 mg/dL (8.4-10.2); Carbon Dioxide 30 mmol/L (22-30); Chloride 93 mmol/L (98-107); Glucose 233 mg/dL (74-99); Non-African American GFR(CKD) >90 (>60 ml/min/1.73 sqM); Sodium 133 mmol/L (137-145)
[2021-05-21 12:16] LABS: Glucose,Whole Blood 241 mg/dL (75-99)
--- NOTE | 2021-05-21 18:42 | DS ---
DISCHARGE SUMMARY FINAL DIAGNOSES: 1. Atrial flutter/fibrillation with a fast ventricular rate. 2. Mechanical fall with head injury with no loss of consciousness. 3. Chronic obstructive pulmonary disease, acute exacerbation, advanced with an FEV1 of % with widespread bronchiectasis with acute bronchitis and moderate symptoms. 4. Right lower lobe pneumonia secondary to Pseudomonas. 5. Carbon dioxide retention with acute respiratory acidosis, improved with BiPAP. 6. Acute hypoxic hypercarbic respiratory failure. 7. Possible constrictive pericarditis. 8. Acute urinary retention, status post Mcgill catheter. 9. Atrial flutter with 4:1 AV conduction. 10.History of alpha-1 antitrypsin deficiency. 11.Hypertension. 12.Chronic hyponatremia. 13.Chronic atrial fibrillation, on Eliquis. 14.History of pancreatitis. 15.Deep vein thrombosis prophylaxis. 16.GI prophylaxis. 17.FULL CODE WITH NO MECHANICAL VENTILATION. DISCHARGE DISPOSITION: The patient will be discharged in stable condition with guarded prognosis. Total time taken 35 minutes. HISTORY OF PRESENT ILLNESS: This 55-year-old gentleman with a past medical history of multiple medical problems was admitted with weakness and other multiple medical problems, as mentioned earlier. The patient was treated in conjunction with multiple consultants. The patient was closely monitored and bronchodilators were given. The patient is keen on going home apparently and the case discussed with the patient's family on multiple occasions. At this time the patient will be discharged home in stable condition with guarded prognosis. On exam, vitals are stable. Cardiovascular: S1, S2. Abdomen soft. Nervous system . DISCHARGE ADVICE AND MEDICATIONS: 1. Diet is cardiac. 2. Activity limited until followup. 3. Follow up with Dr. Irizarry in 2-3 days. 4. Follow up with Dr. Lebron and Dr. Gaytan as recommended. 5. Claritin 10 mg p.o. daily. 6. Prednisone 20 mg p.o. daily and taper later as an outpatient. 7. Melatonin 10 mg at bedtime. 8. Multivitamins 1 p.o. daily. 9. Pepcid 20 mg daily. 10.Remeron 7.25 mg at bedtime. 11.Fluticasone 1 puff daily. 12.Albuterol p.r.n. 13.Vitamin B complex 1 p.o. daily. 14.Vitamin C 1000 mg p.o. daily. 15.Vitamin D3 25 mcg p.o. daily. 16.Xanax 0.5 p.o. t.i.d. 17.Zoloft 50 mg p.o. daily. 18.Cardizem CD 360 mg p.o. daily. 19.Colcrys 0.6 mg p.o. daily. 20.Diamox 250 mg p.o. daily. 21.Eliquis 5 mg p.o. b.i.d. 22.Lasix 20 mg p.o. daily. 23.Merrem 1 gram PIV q.8 as before per Pulmonary for 14 days. 24.Tylenol p.r.n. 25.Albuterol 2.5 p.o. q.i.d. and p.r.n. The patient had Pseudomonas aeruginosa and [place] albicans grown from the cultures. MMODL / IJN: [id number] / MTDD
== END 2021-05-21 13:07 | disposition home health service (06) | DRG 177 ==
LOC: EC 16:49 → 4SSUR 19:51 → 3SCARD 05-16 11:24
PROVIDERS: ADMIT Hospitalist; ATTEND Hospitalist
PROC: 02HV33Z Insertion of Infusion Device into Superior Vena Cava, Percutaneous Approach (ICD-10-PCS; principal; 2021-05-19 11:50)
DX: J15.1 Pneumonia due to Pseudomonas (principal); J96.21 Acute and chronic respiratory failure with hypoxia; J96.22 Acute and chronic respiratory failure with hypercapnia; J44.1 Chronic obstructive pulmonary disease with (acute) exacerbation; Z16.23 Resistance to quinolones and fluoroquinolones; I48.92 Unspecified atrial flutter; E87.1 Hypo-osmolality and hyponatremia; E44.0 Moderate protein-calorie malnutrition; E87.4 Mixed disorder of acid-base balance; I48.20 Chronic atrial fibrillation, unspecified; I47.1 Supraventricular tachycardia; R64 Cachexia; J47.0 Bronchiectasis with acute lower respiratory infection; J21.9 Acute bronchiolitis, unspecified; Z20.822 Contact with and (suspected) exposure to COVID-19; Z79.01 Long term (current) use of anticoagulants; Z79.899 Other long term (current) drug therapy; Z82.49 Family history of ischemic heart disease and other diseases of the circulatory system; Z99.81 Dependence on supplemental oxygen; E78.5 Hyperlipidemia, unspecified; E88.01 Alpha-1-antitrypsin deficiency; E87.5 Hyperkalemia; E07.81 Sick-euthyroid syndrome; F17.201 Nicotine dependence, unspecified, in remission; I11.9 Hypertensive heart disease without heart failure; I27.20 Pulmonary hypertension, unspecified; I34.0 Nonrheumatic mitral (valve) insufficiency; I36.1 Nonrheumatic tricuspid (valve) insufficiency; J15.6 Pneumonia due to other Gram-negative bacteria; R33.9 Retention of urine, unspecified
CPT/HCPCS: 36415; 36573; 36600; 70450; 71045; 71046; 71275; 80048; 80053; 82805; 83735; 83880; 84132; 84145; 84439; 84443; 84484; 85025; 85610; 85730; 87040; 87070; 87077; 87186; 87205; 87635; 93005; 93306; 93308; 94640; 94660; 94760; 96365; 96375; 99285

== ENCOUNTER 2021-06-06 02:15 | Inpatient (IN) | payer OTHER ==
--- NOTE | 2021-06-06 04:22 | XR ---
EXAMINATION TYPE: XR chest 1V portable DATE OF EXAM: 06/06/2021 COMPARISON: 05/19/2021 HISTORY: Short of breath. TECHNIQUE: Single view FINDINGS: There is pulmonary interstitial and airspace edema. There is slight blunting of the costoph renic angles. There are chest leads. Heart size is normal. Mediastinum is normal. There is left subcl chelita catheter with tip in the superior vena cava. Tip is close to the right atrium. IMPRESSION: There is pulmonary edema which is slightly worse than last exam.
[2021-06-06 05:01] LABS: Basophils % (A) 1 %; Eosinophils # (A) 0.1 k/uL (0-0.7); Eosinophils % (A) 2 %; HCT 39.8 % (39.0-53.0); HGB 12.6 gm/dL (13.0-17.5); Lymphocytes # (A) 0.3 k/uL (1.0-4.8); Lymphocytes % (A) 10 %; MCH 30.1 pg (25.0-35.0); MCHC 31.7 g/dL (31.0-37.0); MCV 94.8 fL (80.0-100.0); Mean Platelet Volume 8.2; Monocytes # (A) 0.3 k/uL (0-1.0); Monocytes % (A) 10 %; Neutrophils # (A) 2.4 k/uL (1.3-7.7); Neutrophils % (A) 74 %; Platelet Count 275 k/uL (150-450); RDW 14.8 % (11.5-15.5); WBC 3.2 k/uL (3.8-10.6)
[2021-06-06 05:11] LABS: INR 0.9 (<1.2); Partial Thromboplastin Time 23.6 sec (22.0-30.0)
[2021-06-06 05:31] LABS: ALT 36 U/L (4-49); AST 30 U/L (17-59); African American GFR (CKD) >90 (>60 ml/min/1.73 sqM); Albumin 3.2 g/dL (3.5-5.0); Alkaline Phosphatase 143 U/L (38-126); Blood Urea Nitrogen 25 mg/dL (9-20); Calcium 9.5 mg/dL (8.4-10.2); Chloride 89 mmol/L (98-107); Glucose 150 mg/dL (74-99); Magnesium 1.9 mg/dL (1.6-2.3); Non-African American GFR(CKD) >90 (>60 ml/min/1.73 sqM); Sodium 136 mmol/L (137-145); Total Bilirubin 0.6 mg/dL (0.2-1.3); Total Protein 6.1 g/dL (6.3-8.2)
[2021-06-06 05:38] LABS: Anion Gap 4 mmol/L
[2021-06-06 06:34] LABS: Carbon Dioxide 43 mmol/L (22-30)
--- NOTE | 2021-06-06 06:52 | ED ---
SOB HPI - General Chief Complaint: Shortness of Breath Stated Complaint: CHERI Time Seen by Provider: 06/06/21 02:27 Source: EMS Mode of arrival: EMS Limitations: no limitations - History of Present Illness Initial Comments: patient is a 55-year-old man with history of COPD secondary to alpha antitrypsin deficiency. The patient is brought by ambulance to be evaluated for altered mental status and for increasing shortness of breath. He is not able to give much history due to altered mental status and his provides most of the history. the patient has been becoming less active, increasing generalized weakness, and his breathing seemed worse than at baseline. The patient currently uses 4 L oxygen [id number]. No fevers noted at home. Has occasional cough, no sputum noted. MD Complaint: shortness of breath -: days(s) - Related Data Home Medications Medication Instructions Recorded Confirmed Albuterol Sulfate [Ventolin HFA] 2 puff INHALATION RT-Q4H PRN 02/18/20 05/11/21 Fluticasone/Umeclidin/Vilanter 1 puff INHALATION RT-DAILY 02/18/20 05/11/21 [Trelegy Ellipta 100-62.5-25] Mirtazapine [Remeron] 7.5 mg PO HS 11/27/20 05/11/21 ALPRAZolam [Xanax] 0.5 mg PO TID PRN 01/23/21 05/11/21 Loratadine [Claritin] 10 mg PO DAILY 01/23/21 05/11/21 Melatonin 10 mg PO HS 01/23/21 05/11/21 Ascorbic Acid [Vitamin C] 1,000 mg PO DAILY 03/02/21 05/11/21 Cholecalciferol [Vitamin D3 (25 25 mcg PO DAILY 03/02/21 05/11/21 Mcg = 1000 Iu)] Famotidine [Pepcid] 20 mg PO DAILY 03/02/21 05/11/21 Multivitamins, Thera [Multivitamin 1 tab PO DAILY 03/02/21 05/11/21 (formulary)] Vitamin B Complex 1 cap PO DAILY 03/02/21 05/11/21 Sertraline [Zoloft] 50 mg PO DAILY 03/26/21 05/11/21 predniSONE [Deltasone] 20 mg PO DAILY 05/11/21 05/11/21 Previous Rx's Medication Instructions Recorded Apixaban [Eliquis] 5 mg PO BID #60 tab 11/24/20 Acetaminophen Tab [Tylenol] 650 mg PO Q6HR PRN tab 05/20/21 Albuterol Nebulized [Ventolin 2.5 mg INHALATION RT-Q2H PRN ml 05/20/21 Nebulized] Albuterol Nebulized [Ventolin 2.5 mg INHALATION RT-QID 30 Days 05/20/21 Nebulized] #90 ml Colchicine [Colcrys] 0.6 mg PO DAILY 30 Days #30 each 05/20/21 Diltiazem Cd [Cardizem CD] 360 mg PO DAILY 30 Days #120 cap 05/20/21 Furosemide [Lasix] 20 mg PO DAILY 30 Days #30 tab 05/20/21 Meropenem [Merrem] 1 gm IVPB Q8H 14 Days #42 each 05/20/21 Tamsulosin [Flomax] 0.4 mg PO PC-SUPPER 30 Days #30 tab 05/20/21 acetaZOLAMIDE [Diamox] 250 mg PO DAILY 30 Days #30 tab 05/20/21 Allergies Allergy/AdvReac Type Severity Reaction Status Date / Time ampicillin Allergy Unknown Verified 05/11/21 16:59 Childhood formoterol [From Perforomist] Allergy Anaphylaxis Verified 05/11/21 16:59 ipratropium Allergy Anaphylaxis Verified 05/11/21 16:59 Penicillins Allergy Unknown Verified 05/11/21 16:59 Childhood Review of Systems ROS Statement: Those systems with pertinent positive or pertinent negative responses have been documented in the HPI. ROS Other: All systems not noted in ROS Statement are negative. Constitutional: Denies: fever Respiratory: Reports: cough, dyspnea Cardiovascular: Denies: chest pain Gastrointestinal: Denies: abdominal pain Neurological: Denies: headache Past Medical History Past Medical History: Atrial Fibrillation, COPD, Hypertension Additional Past Medical History / Comment(s): Alpha 1 antitrypsin deficiency, pancreatitis. History of Any Multi-Drug Resistant Organisms: None Reported Past Surgical History: Tonsillectomy Additional Past Surgical History / Comment(s): Colonoscopy Past Anesthesia/Blood Transfusion Reactions: No Reported Reaction Past Psychological History: No Psychological Hx Reported Smoking Status: Former smoker Past Alcohol Use History: None Reported Past Drug Use History: None Reported - Past Family History Mother Family Medical History: Hypertension Additional Family Medical History / Comment(s): Hip/knee replacements. Mother in her sleep in her 70s. Father Family Medical History: CVA/TIA Additional Family Medical History / Comment(s): Father is . General Exam Limitations: no limitations General appearance: obtunded Head exam: Present: atraumatic Eye exam: Present: normal appearance. Absent: scleral icterus, conjunctival injection Neck exam: Present: normal inspection Respiratory exam: Present: wheezes. Absent: respiratory distress, rales, rhonchi, stridor Cardiovascular Exam: Present: regular rate, normal rhythm, normal heart sounds. Absent: systolic murmur, diastolic murmur, rubs, gallop GI/Abdominal exam: Present: soft. Absent: distended, tenderness, guarding, rebound Extremities exam: Present: normal inspection, normal capillary refill, pedal edema. Absent: calf tenderness Back exam: Present: normal inspection Neurological exam: Present: altered Skin exam: Present: warm, dry, intact, normal color. Absent: rash Course Vital Signs 06/06/21 06/06/21 06/06/21 02:16 03:00 04:00 Temperature 97.6 F Pulse Rate 84 80 76 Respiratory 22 22 22 Rate Blood Pressure 107/88 118/80 126/84 O2 Sat by Pulse 100 98 98 Oximetry 06/06/21 06:00 Temperature 97.4 F L Pulse Rate 77 Respiratory 22 Rate Blood Pressure 117/81 O2 Sat by Pulse 97 Oximetry Procedures - Orange Protocol (Time Out) Nurse: Trisha Garcia Medical Decision Making - Lab Data Result diagrams: 06/06/21 04:02 06/06/21 04:02 Lab Results 06/06/21 06/06/21 06/06/21 Range/Units 04:02 04:02 04:02 WBC 3.2 L (3.8-10.6) k/uL RBC 4.20 L (4.30-5.90) m/uL Hgb 12.6 L (13.0-17.5) gm/dL Hct 39.8 (39.0-53.0) % MCV 94.8 (80.0-100.0) fL MCH 30.1 (25.0-35.0) pg MCHC 31.7 (31.0-37.0) g/dL RDW 14.8 (11.5-15.5) % Plt Count 275 (150-450) k/uL MPV 8.2 Neutrophils % 74 % Lymphocytes % 10 % Monocytes % 10 % Eosinophils % 2 % Basophils % 1 % Neutrophils # 2.4 (1.3-7.7) k/uL Lymphocytes # 0.3 L (1.0-4.8) k/uL Monocytes # 0.3 (0-1.0) k/uL Eosinophils # 0.1 (0-0.7) k/uL Basophils # 0.0 (0-0.2) k/uL PT 10.0 (9.0-12.0) sec INR 0.9 (<1.2) APTT 23.6 (22.0-30.0) sec D-Dimer 0.28 (<0.60) mg/L FEU Sodium 136 L (137-145) mmol/L Potassium 4.0 (3.5-5.1) mmol/L Chloride 89 L (98-107) mmol/L Carbon Dioxide 43 H* (22-30) mmol/L Anion Gap 4 mmol/L BUN 25 H (9-20) mg/dL Creatinine 0.74 (0.66-1.25) mg/dL Est GFR (CKD-EPI)AfAm >90 (>60 ml/min/1.73 sqM) Est GFR (CKD-EPI)NonAf >90 (>60 ml/min/1.73 sqM) Glucose 150 H (74-99) mg/dL Plasma Lactic Acid Andrei (0.7-2.0) mmol/L Calcium 9.5 (8.4-10.2) mg/dL Magnesium 1.9 (1.6-2.3) mg/dL Total Bilirubin 0.6 (0.2-1.3) mg/dL AST 30 (17-59) U/L ALT 36 (4-49) U/L Alkaline Phosphatase 143 H (38-126) U/L Troponin I (0.000-0.034) ng/mL Total Protein 6.1 L (6.3-8.2) g/dL Albumin 3.2 L (3.5-5.0) g/dL 06/06/21 06/06/21 Range/Units 04:02 04:02 WBC (3.8-10.6) k/uL RBC (4.30-5.90) m/uL Hgb (13.0-17.5) gm/dL Hct (39.0-53.0) % MCV (80.0-100.0) fL MCH (25.0-35.0) pg MCHC (31.0-37.0) g/dL RDW (11.5-15.5) % Plt Count (150-450) k/uL MPV Neutrophils % % Lymphocytes % % Monocytes % % Eosinophils % % Basophils % % Neutrophils # (1.3-7.7) k/uL Lymphocytes # (1.0-4.8) k/uL Monocytes # (0-1.0) k/uL Eosinophils # (0-0.7) k/uL Basophils # (0-0.2) k/uL PT (9.0-12.0) sec INR (<1.2) APTT (22.0-30.0) sec D-Dimer (<0.60) mg/L FEU Sodium (137-145) mmol/L Potassium (3.5-5.1) mmol/L Chloride (98-107) mmol/L Carbon Dioxide (22-30) mmol/L Anion Gap mmol/L BUN (9-20) mg/dL Creatinine (0.66-1.25) mg/dL Est GFR (CKD-EPI)AfAm (>60 ml/min/1.73 sqM) Est GFR (CKD-EPI)NonAf (>60 ml/min/1.73 sqM) Glucose (74-99) mg/dL Plasma Lactic Acid Andrei 1.1 (0.7-2.0) mmol/L Calcium (8.4-10.2) mg/dL Magnesium (1.6-2.3) mg/dL Total Bilirubin (0.2-1.3) mg/dL AST (17-59) U/L ALT (4-49) U/L Alkaline Phosphatase (38-126) U/L Troponin I <0.012 (0.000-0.034) ng/mL Total Protein (6.3-8.2) g/dL Albumin (3.5-5.0) g/dL Disposition Referrals: Wolf Irizarry MD [Primary Care Provider] - 1-2 days
[2021-06-06 07:08] LABS: VBG PH 7.31 (7.31-7.41)
[2021-06-06] MEDS ORDERED: methylPREDNISolone SOD SUCCI 125 MG/2 ML VIAL IV STA (07:22)
[2021-06-06] MEDS ORDERED: ACETAMINOPHEN TAB 325 MG TAB PO PRN (07:27)
[2021-06-06] MEDS ORDERED: ALPRAZolam 0.5 MG TAB PO PRN (07:27)
[2021-06-06] MEDS ORDERED: BUDESONIDE 0.5 MG/2 ML NEBU INHALATION SCH (08:00)
[2021-06-06] MEDS ORDERED: HEPARIN SODIUM,PORCINE/PF 5,000 UNIT/0.5 ML SYRINGE SQ SCH (08:00)
[2021-06-06] MEDS: acetaZOLAMIDE 250 MG TAB PO SCH (08:59)
[2021-06-06] MEDS: SODIUM CHLORIDE 0.9% 1,000 ML IV SCH (09:00)
[2021-06-06] MEDS: DILTIAZEM CD 180 MG CAP.ER.24H PO SCH (09:00)
[2021-06-06] MEDS: CHOLECALCIFEROL 25 MCG (1000 IU) TABLET PO SCH (09:03)
[2021-06-06] MEDS: FAMOTIDINE 20 MG TAB PO SCH (09:04)
[2021-06-06] MEDS: APIXABAN 5 MG TAB PO SCH ×2 (09:04→20:41)
[2021-06-06] MEDS: SERTRALINE 50 MG TAB PO SCH (09:04)
[2021-06-06] MEDS: IPRATROPIUM-ALBUTEROL 3 ML NEB INHALATION SCH ×4 (11:02→20:50)
[2021-06-06] MEDS: SYMBICORT 80-4.5 MCG INHALER INHALATION SCH ×2 (11:03→20:50)
[2021-06-06] MEDS ORDERED: methylPREDNISolone SOD SUCCI 125 MG/2 ML VIAL IV SCH (12:00)
[2021-06-06] MEDS ORDERED: MEROPENEM 1 GM VIAL IVPB SCH (13:45)
--- NOTE | 2021-06-06 15:11 | P.CNPUL ---
History of Present Illness Consult date: 06/06/21 Requesting physician: Ventura Meza Reason for consult: hypoxemia (Hypoxia), other Chief complaint: Hypoxia, altered mental status History of present illness: This is a 55-year-old white male patient who is well-known to my service for his history of alpha-1 antitrypsin deficiency, severe COPD/emphysema, with a baseline FEV1 of 19% of predicted, and severe diffusion abnormality of 40% of predicted. Patient is on Trilogy ventilator at home on AVAPS settings. He has chronic hypoxic and hypercapnic respiratory failure, he does wear 4 L of oxygen at home during the day. Patient is an ex-smoker, quit smoking over a year ago, does have [id number] smoking history, and in addition he had smoked marijuana, other medical history includes hypertension, paroxysmal atrial fibrillation/atrial flutter, hypertensive heart disease, mild pulmonary hypertension, pericardial calcifications compatible with prior pericarditis and possibility of restrictive pericarditis, and history of pseudomonal pulmonary infections, most recently patient was hospitalized for acute exacerbation of COPD, and sputum cultures were positive for pseudomonas aeruginosa which was resistant to multiple antibiotics. Patient was discharged home on 05/21/2021 on 2 week course of meropenem. He was being followed by home care nurse, and he was also under palliative care. His is also a nurse. She provided most of the history of the present illness, on 06/06/2001 patient was brought into the emergency department per EMS for worsening hypoxia, and altered mental status. His states that he had completed his 2 week course of meropenem last week, his PICC line was removed by the visiting nurses, he was doing well at home, and was at his baseline on his maintenance treatments. This morning she noticed that he was more confused, he was yelling out, his pulse ox was low at 59-60% on his usual settings on the Trilogy ventilator. EMS was called and patient was brought into the hospital, she states she is having increased swelling in his bilateral lower extremities, but no fever or chills, he was taking Diamox and Lasix at home. His chest x-ray in the emergency department showed a pulmonary interstitial and airspace edema, with slight blunting of the costophrenic angles. EKG showed normal sinus rhythm with biatrial enlargement. COVID-19 PCR was negative. The rest of blood work has been reviewed, his white blood cell count was 3.2, hemoglobin was 12.6, d-dimer was negative at 0.28, sodium was 136, potassium is 4.0, chloride was 89, CO2 was 43, BUN was 25 creatinine 0.74, AST and ALT were within normal limits, alk phos was 143, troponin was less than 0.012, proBNP was 85. His venous blood gas showed pH is 7.31, pCO2 of 89, and bicarbonate concentration of 43, patient was placed on BiPAP with pressures of 12 and 6 and FiO2 100%. Is much more awake, he is answering questions. Seems comfortable, he is currently on nasal cannula at 4 L, 50 pulse ox is 94%, his been afebrile. He was started on bronchodilators, IV steroids, his home dose Diamox 250 mg daily, he is on his home dose Eliquis for history of right is full atrial fibrillation. And we were asked to see the patient consultation for evaluation of worsening shortness of breath and acute on chronic hypoxic respiratory failure. Review of Systems All systems: negative Constitutional: Denies chills, Denies fever Eyes: denies blurred vision, denies pain Ears, nose, mouth and throat: Denies headache, Denies sore throat Cardiovascular: Denies chest pain, Denies shortness of breath Respiratory: Reports dyspnea, Denies cough Gastrointestinal: Denies abdominal pain, Denies diarrhea, Denies nausea, Denies vomiting Musculoskeletal: Denies myalgias Integumentary: Denies pruritus, Denies rash Neurological: Reports change in mentation, Denies numbness, Denies weakness Psychiatric: Denies anxiety, Denies depression Endocrine: Denies fatigue, Denies weight change Past Medical History Past Medical History: Atrial Fibrillation, COPD, Hypertension Additional Past Medical History / Comment(s): Alpha 1 antitrypsin deficiency, pancreatitis. History of Any Multi-Drug Resistant Organisms: None Reported Past Surgical History: Tonsillectomy Additional Past Surgical History / Comment(s): Colonoscopy Past Anesthesia/Blood Transfusion Reactions: No Reported Reaction Past Psychological History: No Psychological Hx Reported Smoking Status: Former smoker Past Alcohol Use History: None Reported Past Drug Use History: None Reported - Past Family History Mother Family Medical History: Hypertension Additional Family Medical History / Comment(s): Hip/knee replacements. Mother in her sleep in her 70s. Father Family Medical History: CVA/TIA Additional Family Medical History / Comment(s): Father is . Medications and Allergies Home Medications Medication Instructions Recorded Confirmed Type Albuterol Sulfate [Ventolin HFA] 2 puff INHALATION RT-Q4H PRN 02/18/20 06/06/21 History Fluticasone/Umeclidin/Vilanter 1 puff INHALATION RT-DAILY 02/18/20 06/06/21 History [Trelegy Ellipta 100-62.5-25] Apixaban [Eliquis] 5 mg PO BID #60 tab 11/24/20 06/06/21 Rx Mirtazapine [Remeron] 7.5 mg PO HS 11/27/20 06/06/21 History ALPRAZolam [Xanax] 0.5 mg PO TID PRN 01/23/21 06/06/21 History Loratadine [Claritin] 10 mg PO DAILY 01/23/21 06/06/21 History Melatonin 10 mg PO HS 01/23/21 06/06/21 History Ascorbic Acid [Vitamin C] 1,000 mg PO DAILY 03/02/21 06/06/21 History Cholecalciferol [Vitamin D3 (25 25 mcg PO DAILY 03/02/21 06/06/21 History Mcg = 1000 Iu)] Famotidine [Pepcid] 20 mg PO DAILY 03/02/21 06/06/21 History Multivitamins, Thera [Multivitamin 1 tab PO DAILY 03/02/21 06/06/21 History (formulary)] Vitamin B Complex 1 cap PO DAILY 03/02/21 06/06/21 History Sertraline [Zoloft] 50 mg PO DAILY 03/26/21 06/06/21 History predniSONE [Deltasone] 20 mg PO DAILY 05/11/21 06/06/21 History Acetaminophen Tab [Tylenol] 650 mg PO Q6HR PRN tab 05/20/21 06/06/21 Rx Albuterol Nebulized [Ventolin 2.5 mg INHALATION RT-Q2H PRN ml 05/20/21 06/06/21 Rx Nebulized] Albuterol Nebulized [Ventolin 2.5 mg INHALATION RT-QID 30 Days 05/20/21 06/06/21 Rx Nebulized] #90 ml Colchicine [Colcrys] 0.6 mg PO DAILY 30 Days #30 each 05/20/21 06/06/21 Rx Diltiazem Cd [Cardizem CD] 360 mg PO DAILY 30 Days #120 cap 05/20/21 06/06/21 Rx Furosemide [Lasix] 20 mg PO DAILY 30 Days #30 tab 05/20/21 06/06/21 Rx Meropenem [Merrem] 1 gm IVPB Q8H 14 Days #42 each 05/20/21 06/06/21 Rx Tamsulosin [Flomax] 0.4 mg PO PC-SUPPER 30 Days #30 tab 05/20/21 06/06/21 Rx acetaZOLAMIDE [Diamox] 250 mg PO DAILY 30 Days #30 tab 05/20/21 06/06/21 Rx Allergies Allergy/AdvReac Type Severity Reaction Status Date / Time ampicillin Allergy Unknown Verified 06/06/21 08:02 Childhood formoterol [From Perforomist] Allergy Anaphylaxis Verified 06/06/21 08:02 ipratropium Allergy Anaphylaxis Verified 06/06/21 08:02 Penicillins Allergy Unknown Verified 06/06/21 08:02 Childhood Physical Exam Vitals: Vital Signs Temp Pulse Resp BP Pulse Ox 06/06/21 14:15 94 L 06/06/21 13:59 91 L 06/06/21 12:11 68 16 110/77 97 06/06/21 12:00 72 18 114/75 98 06/06/21 11:23 74 20 114/75 97 06/06/21 11:14 76 06/06/21 11:06 85 06/06/21 11:00 71 14 111/83 100 06/06/21 10:00 73 16 114/81 100 06/06/21 09:13 80 15 114/81 98 06/06/21 09:06 98.2 F 77 20 114/81 98 06/06/21 06:00 97.4 F L 77 22 117/81 97 06/06/21 04:00 76 22 126/84 98 06/06/21 03:00 80 22 118/80 98 06/06/21 02:16 97.6 F 84 22 107/88 100 Intake and Output 06/05/21 06/06/21 06/06/21 22:59 06:59 14:59 Other: Weight 63.503 kg GENERAL EXAM: Alert, very pleasant, 55-year-old white male, currently on 4 L of oxygen with a pulse ox of 94% comfortable in no apparent distress. HEAD: Normocephalic/atraumatic. EYES: Normal reaction of pupils, equal size. Conjunctiva pink, sclera white. NOSE: Clear with pink turbinates. THROAT: No erythema or exudates. NECK: No masses, no JVD, no thyroid enlargement, no adenopathy. CHEST: No chest wall deformity. Symmetrical expansion. LUNGS: Equal air entry with very diminished breath sounds bilaterally CVS: Regular rate and rhythm, normal S1 and S2, no gallops, no murmurs, no rubs ABDOMEN: Soft, nontender. No hepatosplenomegaly, normal bowel sounds, no guarding or rigidity. EXTREMITIES: No clubbing, 1+ lower extremity edema, no cyanosis, 2+ pulses and upper and lower extremities. MUSCULOSKELETAL: Muscle strength and tone normal. SPINE: No scoliosis or deformity SKIN: No rashes CENTRAL NERVOUS SYSTEM: Alert and oriented -3. No focal deficits, tone is normal in all 4 extremities. PSYCHIATRIC: Alert and oriented -3. Appropriate affect. Intact judgment and insight. Results - Laboratory Findings CBC and BMP: 06/06/21 04:02 06/06/21 04:02 PT/INR, D-dimer PT 10.0 sec (9.0-12.0) 06/06/21 04:02 INR 0.9 (<1.2) 06/06/21 04:02 D-Dimer 0.28 mg/L FEU (<0.60) 06/06/21 04:02 Abnormal lab findings: Abnormal Labs 06/06/21 06/06/21 06/06/21 04:02 04:02 05:56 WBC 3.2 L RBC 4.20 L Hgb 12.6 L Lymphocytes # 0.3 L VBG pCO2 89 H* VBG HCO3 43 H Sodium 136 L Chloride 89 L Carbon Dioxide 43 H* BUN 25 H Glucose 150 H Alkaline Phosphatase 143 H Total Protein 6.1 L Albumin 3.2 L - Diagnostic Findings Chest x-ray: report reviewed, image reviewed CT scan - chest: report reviewed, image reviewed Additional studies: EKG reviewed Assessment and Plan Plan: Assessment: #1. Acute on chronic hypoxic respiratory failure related to acute exacerbation of COPD, with a possibility of mild fluid overload versus purulent tracheobronchitis related to pseudomonas aeruginosa, although his proBNP level was not elevated at 85. Patient does have history of restrictive pericarditis with evidence of pericardial calcifications noted on his CT chest previously #2. Recent hospitalization for acute exacerbation of COPD, and right lower lobe pneumonia with sputum cultures positive for pseudomonas aeruginosa and patient was discharged home to complete 2 week course of meropenem which she completed last week and PICC line was removed #3. Severe COPD with baseline FEV1 of 19% of predicted, stage IV COPD on home oxygen at 4 L, and Trilogy vent at AVAPS settings, patient had a chronic CO2 retainer, he was not a candidate for endobronchial [place] valve insertion related to chronic hypercapnic respiratory failure #4. 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 Hypertension #6. Paroxismal atrial fibrillation, atrial flutter, currently in sinus mechanism, on Eliquis for chronic anti-coagulation #7. Previous sputum colonization with pseudomonas aeruginosa #8. Poor baseline functional performance related to extremely poor lung fu nction, and poor exercise capacity related to advanced COPD Plan: We will add Lasix 40 mg IV push daily Continue with Diamox Continue steroids Continue bronchodilators We'll restart meropenem while the patient is in the hospital Send pro calcitonin level, Continue BiPAP support at bedtime and as needed Send a sputum culture Repeat chest x-ray tomorrow Patient was on palliative care at home, clarify CODE STATUS I performed a history & physical examination of the patient and discussed their management with my nurse practitioner, Elida Cardoso. I reviewed the nurse practitioner's note and agree with the documented findings and plan of care. Lung sounds are positive for diminished breath sounds hroughout the lung miles. The findings and the impression was discussed with the patient. I attest to the documentation by the nurse practitioner. Time with Patient: Greater than 30
--- NOTE | 2021-06-06 15:35 | P.HPIM ---
History of Present Illness H&P Date: 06/06/21 This is a pleasant 55-year-old male who presented to the emergency department via EMS with worsening shortness of breath and acute altered mental status. Per the the patient has become more dyspneic and not able to function is normal and has become more weak and fatigued and was brought in for further evaluation. Patient normally wears 4 L of oxygen in the outpatient setting and was recently placed on BiPAP upon ED admission. Pulmonary has been consulted. Chest x-ray in the ER shows pulmonary edema slightly worse than previous along with pulmonary interstitial and airspace edema noted with some slight blunting of the costophrenic angles. EKG shows normal sinus rhythm with a rate of 86, QT QTc is 368/440 with some biatrial enlargement and an abnormal EKG. She has a past medical history of atrial fibrillation, COPD, hypertension, elbow 1 anti-trypsin deficiency, pancreatitis. Patient is a former smoker and has not been smoking for at least one year and quit in 2019. Patient is being admitted for COPD exacerbation with pulmonary on consult. Patient had received a PICC line on previous admission as sputum culture did show resistant pseudomonas aeruginosa along with Carolina albicans and patient had been receiving meropenem in the outpatient setting. She was also given IV Solu-Medrol and started on IV steroids [id number] along with continued bronchodilators. Admission Show a White Blood Count of 3.2 with a Hemoglobin of 12.6 and Current Platelets Are 275, D-Dimer Was Negative at 0.28, VBG CO2 Showing 89 and Bicarb Showing 43 with a pH of 7.31. Sodium Is 136 with a Potassium of 4.0 Carbon Dioxide Is 43, BUN Is 25 and Creatinine Is 0.74. Plasma Lactic Acid Was 1.1 and Magnesium 1.9. Troponin Was Negative and BNP Is 85 and COVID-19 Was Negative. Review of Systems ROS unobtainable: due to mental status Respiratory: Reports cough, Reports dyspnea, Reports wheezing Past Medical History Past Medical History: Atrial Fibrillation, COPD, Hypertension Additional Past Medical History / Comment(s): Alpha 1 antitrypsin deficiency, pancreatitis. History of Any Multi-Drug Resistant Organisms: None Reported Past Surgical History: Tonsillectomy Additional Past Surgical History / Comment(s): Colonoscopy Past Anesthesia/Blood Transfusion Reactions: No Reported Reaction Past Psychological History: No Psychological Hx Reported Smoking Status: Former smoker Past Alcohol Use History: None Reported Past Drug Use History: None Reported - Past Family History Mother Family Medical History: Hypertension Additional Family Medical History / Comment(s): Hip/knee replacements. Mother in her sleep in her 70s. Father Family Medical History: CVA/TIA Additional Family Medical History / Comment(s): Father is . Medications and Allergies Home Medications Medication Instructions Recorded Confirmed Type Albuterol Sulfate [Ventolin HFA] 2 puff INHALATION RT-Q4H PRN 02/18/20 06/06/21 History Fluticasone/Umeclidin/Vilanter 1 puff INHALATION RT-DAILY 02/18/20 06/06/21 History [Trelegy Ellipta 100-62.5-25] Apixaban [Eliquis] 5 mg PO BID #60 tab 11/24/20 06/06/21 Rx Mirtazapine [Remeron] 7.5 mg PO HS 11/27/20 06/06/21 History ALPRAZolam [Xanax] 0.5 mg PO TID PRN 01/23/21 06/06/21 History Loratadine [Claritin] 10 mg PO DAILY 01/23/21 06/06/21 History Melatonin 10 mg PO HS 01/23/21 06/06/21 History Ascorbic Acid [Vitamin C] 1,000 mg PO DAILY 03/02/21 06/06/21 History Cholecalciferol [Vitamin D3 (25 25 mcg PO DAILY 03/02/21 06/06/21 History Mcg = 1000 Iu)] Famotidine [Pepcid] 20 mg PO DAILY 03/02/21 06/06/21 History Multivitamins, Thera [Multivitamin 1 tab PO DAILY 03/02/21 06/06/21 History (formulary)] Vitamin B Complex 1 cap PO DAILY 03/02/21 06/06/21 History Sertraline [Zoloft] 50 mg PO DAILY 03/26/21 06/06/21 History predniSONE [Deltasone] 20 mg PO DAILY 05/11/21 06/06/21 History Acetaminophen Tab [Tylenol] 650 mg PO Q6HR PRN tab 05/20/21 06/06/21 Rx Albuterol Nebulized [Ventolin 2.5 mg INHALATION RT-Q2H PRN ml 05/20/21 06/06/21 Rx Nebulized] Albuterol Nebulized [Ventolin 2.5 mg INHALATION RT-QID 30 Days 05/20/21 06/06/21 Rx Nebulized] #90 ml Colchicine [Colcrys] 0.6 mg PO DAILY 30 Days #30 each 05/20/21 06/06/21 Rx Diltiazem Cd [Cardizem CD] 360 mg PO DAILY 30 Days #120 cap 05/20/21 06/06/21 Rx Furosemide [Lasix] 20 mg PO DAILY 30 Days #30 tab 05/20/21 06/06/21 Rx Meropenem [Merrem] 1 gm IVPB Q8H 14 Days #42 each 05/20/21 06/06/21 Rx Tamsulosin [Flomax] 0.4 mg PO PC-SUPPER 30 Days #30 tab 05/20/21 06/06/21 Rx acetaZOLAMIDE [Diamox] 250 mg PO DAILY 30 Days #30 tab 05/20/21 06/06/21 Rx Allergies Allergy/AdvReac Type Severity Reaction Status Date / Time ampicillin Allergy Unknown Verified 06/06/21 08:02 Childhood formoterol [From Perforomist] Allergy Anaphylaxis Verified 06/06/21 08:02 ipratropium Allergy Anaphylaxis Verified 06/06/21 08:02 Penicillins Allergy Unknown Verified 06/06/21 08:02 Childhood Physical Exam Vitals: Vital Signs Temp Pulse Resp BP Pulse Ox 06/06/21 12:11 68 16 110/77 97 06/06/21 12:00 72 18 114/75 98 06/06/21 11:23 74 20 114/75 97 06/06/21 11:14 76 06/06/21 11:06 85 06/06/21 11:00 71 14 111/83 100 06/06/21 10:00 73 16 114/81 100 06/06/21 09:13 80 15 114/81 98 06/06/21 09:06 98.2 F 77 20 114/81 98 06/06/21 06:00 97.4 F L 77 22 117/81 97 06/06/21 04:00 76 22 126/84 98 06/06/21 03:00 80 22 118/80 98 06/06/21 02:16 97.6 F 84 22 107/88 100 Intake and Output 06/05/21 06/06/21 06/06/21 22:59 06:59 14:59 Other: Weight 63.503 kg GENERAL: The patient is alert 1-2 currently on BiPAP mild respiratory distress,Well developed, well nourished. HEENT: Pupils are round and equally reacting to light. EOMI. No scleral icterus. No conjunctival pallor. Normocephalic, atraumatic. No pharyngeal erythema. No thyromegaly. CARDIOVASCULAR: S1 and S2 present. No murmurs, rubs, or gallops. PULMONARY: Diminished air entry without any crackles, some expiratory wheezing noted ABDOMEN: Soft, nontender, nondistended, normoactive bowel sounds. No palpable organomegaly. MUSCULOSKELETAL: No joint swelling or deformity. EXTREMITIES: No cyanosis, clubbing, or pedal edema. NEUROLOGICAL: Gross neurological examination did not reveal any focal deficits. diffusely weak SKIN: No rashes. Results CBC & Chem 7: 06/06/21 04:02 06/06/21 04:02 Labs: Abnormal Lab Results - Last 24 Hours (Table) 06/06/21 06/06/21 06/06/21 Range/Units 04:02 04:02 05:56 WBC 3.2 L (3.8-10.6) k/uL RBC 4.20 L (4.30-5.90) m/uL Hgb 12.6 L (13.0-17.5) gm/dL Lymphocytes # 0.3 L (1.0-4.8) k/uL VBG pCO2 89 H* (37-51) mmHg VBG HCO3 43 H (24-28) mmol/L Sodium 136 L (137-145) mmol/L Chloride 89 L (98-107) mmol/L Carbon Dioxide 43 H* (22-30) mmol/L BUN 25 H (9-20) mg/dL Glucose 150 H (74-99) mg/dL Alkaline Phosphatase 143 H (38-126) U/L Total Protein 6.1 L (6.3-8.2) g/dL Albumin 3.2 L (3.5-5.0) g/dL Assessment and Plan Assessment: -Acute hypoxic respiratory failure requiring BiPAP: Patient normally wears 4 L of oxygen and will wean as tolerated, pulmonary consulted -COPD exacerbation, patient started on IV steroids and will continue with bronchodilators and BiPAP as needed -History of alpha-1 antitrypsin deficiency -Altered mental status most likely secondary to assessment #1 -Recent sputum culture positive for pseudomonas aeruginosa required IV antibiotic therapy on discharge with a PICC line placement, repeat sputum culture ordered -Chronic hypoxic and hypercapnic respiratory failure secondary to COPD, alpha-1 antitrypsin deficiency -Paroxysmal Atrial fibrillation -Hypertension -Mild history of nicotine dependence, quit 1 year ago -DVT prophylaxis: Continue Eliquis Time with Patient: Greater than 30
[2021-06-06] MEDS: MEROPENEM 1 GM in SODIUM CHLORIDE 0.9% 100 ML IVPB SCH (16:22)
[2021-06-06] MEDS: FUROSEMIDE 10 MG/ML 4 ML VIAL IV SCH (16:22)
[2021-06-06] MEDS ORDERED: TAMSULOSIN 0.4 MG CAP.ER.24H PO SCH (18:30)
[2021-06-06] MEDS: methylPREDNISolone SOD SUCCI 40 MG/ML 1 ML VIAL IV SCH (20:41)
[2021-06-06] MEDS ORDERED: MIRTAZAPINE 15 MG TAB PO SCH (21:00)
[2021-06-06] MEDS ORDERED: MELATONIN 5 MG TABLET PO SCH (21:00)
[2021-06-07] MEDS: MEROPENEM 1 GM in SODIUM CHLORIDE 0.9% 100 ML IVPB SCH (03:58)
[2021-06-07 07:36] LABS: African American GFR (CKD) >90 (>60 ml/min/1.73 sqM); Anion Gap 5 mmol/L; Blood Urea Nitrogen 26 mg/dL (9-20); Calcium 9.1 mg/dL (8.4-10.2); Carbon Dioxide 38 mmol/L (22-30); Chloride 92 mmol/L (98-107); Glucose 206 mg/dL (74-99); Non-African American GFR(CKD) >90 (>60 ml/min/1.73 sqM); Potassium 3.4 mmol/L (3.5-5.1); Sodium 135 mmol/L (137-145)
[2021-06-07] MEDS: FAMOTIDINE 20 MG TAB PO SCH (07:52)
[2021-06-07] MEDS: methylPREDNISolone SOD SUCCI 40 MG/ML 1 ML VIAL IV SCH (07:52)
[2021-06-07] MEDS: FUROSEMIDE 10 MG/ML 4 ML VIAL IV SCH (07:52)
[2021-06-07] MEDS: DILTIAZEM CD 180 MG CAP.ER.24H PO SCH (07:52)
[2021-06-07] MEDS: acetaZOLAMIDE 250 MG TAB PO SCH (07:53)
[2021-06-07] MEDS: SERTRALINE 50 MG TAB PO SCH (07:53)
[2021-06-07] MEDS: SODIUM CHLORIDE 0.9% 1,000 ML IV SCH (07:53)
[2021-06-07] MEDS: APIXABAN 5 MG TAB PO SCH (07:53)
[2021-06-07] MEDS: CHOLECALCIFEROL 25 MCG (1000 IU) TABLET PO SCH (07:53)
--- NOTE | 2021-06-07 08:44 | XR ---
EXAMINATION TYPE: XR chest 1V portable DATE OF EXAM: 06/07/2021 CLINICAL HISTORY: Difficulty breathing progress study. TECHNIQUE: Single AP portable upright view of the chest is obtained. COMPARISON: Chest x-ray from one day earlier and older studies FINDINGS: Stable left-sided subclavian central venous catheter. Chronic parenchymal changes bilatera lly with improved aeration in the lower lungs. Cardiac silhouette size stable and within normal limit s. Osseous structures are intact. IMPRESSION: Improving bilateral lower lung acute infiltrates and/or edema on background chronic paren chymal changes.
[2021-06-07 09:16] LABS: HCT 38.2 % (39.0-53.0); HGB 12.3 gm/dL (13.0-17.5); MCH 30.3 pg (25.0-35.0); MCHC 32.2 g/dL (31.0-37.0); Platelet Count 228 k/uL (150-450); RBC 4.06 m/uL (4.30-5.90); RDW 14.3 % (11.5-15.5); WBC 3.9 k/uL (3.8-10.6)
[2021-06-07] MEDS ORDERED: POTASSIUM CHLORIDE ER 20 MEQ TAB.ER PO STA (09:22)
[2021-06-07] MEDS: SYMBICORT 80-4.5 MCG INHALER INHALATION SCH (09:30)
[2021-06-07] MEDS: IPRATROPIUM-ALBUTEROL 3 ML NEB INHALATION SCH ×2 (09:30→12:39)
[2021-06-07 10:51] LABS: Band Neutrophils % 10 %; Lymphocytes # (M) 0.55 k/uL (1.0-4.8); Metamyelocytes # (M) 0.04 k/uL (0); Metamyelocytes % 1 %; Monocytes # (M) 0.39 k/uL (0-1.0); Neutrophils % (M) 65 %; Nucleated Red Blood Cells 0 /100 WBC (0-0); Total Cells Counted 100
[2021-06-07 13:54] VITALS: BP 109/65; PULSE 87; RESP 16; TEMP 98.1
--- NOTE | 2021-06-07 14:16 | P.PN ---
Subjective Progress Note Date: 06/07/21 This is a 55-year-old white male patient who is well-known to my service for his history of alpha-1 antitrypsin deficiency, severe COPD/emphysema, with a baseline FEV1 of 19% of predicted, and severe diffusion abnormality of 40% of predicted. Patient is on Trilogy ventilator at home on AVAPS settings. He has chronic hypoxic and hypercapnic respiratory failure, he does wear 4 L of oxygen at home during the day. Patient is an ex-smoker, quit smoking over a year ago, does have [id number] smoking history, and in addition he had smoked marijuana, other medical history includes hypertension, paroxysmal atrial fibrillation/atrial flutter, hypertensive heart disease, mild pulmonary hypertension, pericardial calcifications compatible with prior pericarditis and possibility of restrictive pericarditis, and history of pseudomonal pulmonary infections, most recently patient was hospitalized for acute exacerbation of COPD, and sputum cultures were positive for pseudomonas aeruginosa which was resistant to multiple antibiotics. Patient was discharged home on 05/21/2021 on 2 week course of meropenem. He was being followed by home care nurse, and he was also under palliative care. His is also a nurse. She provided most of the history of the present illness, on 06/06/2001 patient was brought into the emergency department per EMS for worsening hypoxia, and altered mental status. His states that he had completed his 2 week course of meropenem last week, his PICC line was removed by the visiting nurses, he was doing well at home, and was at his baseline on his maintenance treatments. This morning she noticed that he was more confused, he was yelling out, his pulse ox was low at 59-60% on his usual settings on the Trilogy ventilator. EMS was called and patient was brought into the hospital, she states she is having increased swelling in his bilateral lower extremities, but no fever or chills, he was taking Diamox and Lasix at home. His chest x-ray in the emergency department showed a pulmonary interstitial and airspace edema, with slight blunting of the costophrenic angles. EKG showed normal sinus rhythm with biatrial enlargement. COVID-19 PCR was negative. The rest of blood work has been reviewed, his white blood cell count was 3.2, hemoglobin was 12.6, d-dimer was negative at 0.28, sodium was 136, potassium is 4.0, chloride was 89, CO2 was 43, BUN was 25 creatinine 0.74, AST and ALT were within normal limits, alk phos was 143, troponin was less than 0.012, proBNP was 85. His venous blood gas showed pH is 7.31, pCO2 of 89, and bicarbonate concentration of 43, patient was placed on BiPAP with pressures of 12 and 6 and FiO2 100%. Is much more awake, he is answering questions. Seems comfortable, he is currently on nasal cannula at 4 L, 50 pulse ox is 94%, his been afebrile. He was started on bronchodilators, IV steroids, his home dose Diamox 250 mg daily, he is on his home dose Eliquis for history of right is full atrial fibrillation. And we were asked to see the patient consultation for evaluation of worsening shortness of breath and acute on chronic hypoxic respiratory failure. The patient is seen today 06/07/2021 in follow-up on the regular medical floor. He is currently resting comfortably in bed. Awake and alert in no acute distr ess. He is feeling better today compared to yesterday. Chest x-ray showing quite a bit of improvement. Taking in good O2 saturation in the mid 90s on 3 L/m per nasal cannula. He is afebrile. Hemodynamically stable. Blood cultures reveal no growth. White count 3.9. Hemoglobin 12.3. Sodium 135. Potassium 3.4. Creatinine 0.57. Molina virus not detected. He was initiated on diuretics, continued on Diamox. Remains on bronchodilators, IV Solu-Medrol. Antegrade regulated with Eliquis. Antibiotics in the form of meropenem. Objective - Vital Signs Vital signs: Vital Signs Temp 98.1 F 06/07/21 13:53 Pulse 87 06/07/21 13:53 Resp 16 06/07/21 13:53 BP 109/65 06/07/21 13:53 Pulse Ox 96 06/07/21 13:53 Intake & Output 06/06/21 06/07/21 06/07/21 18:59 06:59 18:59 Output Total 500 Balance -500 Weight 63.503 kg Output: Urine 500 Other: Voiding Method Urinal # Voids 1 # Bowel Movements 0 - Exam GENERAL EXAM: Alert, very pleasant, 55-year-old male patient, currently on 3 L of oxygen with a pulse ox of 96% comfortable in no apparent distress. HEAD: Normocephalic/atraumatic. EYES: Normal reaction of pupils, equal size. Conjunctiva pink, sclera white. NOSE: Clear with pink turbinates. THROAT: No erythema or exudates. NECK: No masses, no JVD, no thyroid enlargement, no adenopathy. CHEST: No chest wall deformity. Symmetrical expansion. LUNGS: Equal air entry with very diminished breath sounds bilaterally CVS: Regular rate and rhythm, normal S1 and S2, no gallops, no murmurs, no rubs ABDOMEN: Soft, nontender. No hepatosplenomegaly, normal bowel sounds, no guarding or rigidity. EXTREMITIES: No clubbing, 1+ lower extremity edema, no cyanosis, 2+ pulses and upper and lower extremities. MUSCULOSKELETAL: Muscle strength and tone normal. SPINE: No scoliosis or deformity SKIN: No rashes CENTRAL NERVOUS SYSTEM: Alert and oriented -3. No focal deficits, tone is normal in all 4 extremities. PSYCHIATRIC: Appropriate affect. Intact judgment and insight. - Labs CBC & Chem 7: 06/07/21 06:50 06/07/21 06:50 Labs: Abnormal Lab Results - Last 24 Hours (Table) 06/07/21 06/07/21 Range/Units 06:50 06:50 RBC 4.06 L (4.30-5.90) m/uL Hgb 12.3 L (13.0-17.5) gm/dL Hct 38.2 L (39.0-53.0) % Lymphocytes # (Manual) 0.55 L (1.0-4.8) k/uL Metamyelocytes # (Man) 0.04 H (0) k/uL Sodium 135 L (137-145) mmol/L Potassium 3.4 L (3.5-5.1) mmol/L Chloride 92 L (98-107) mmol/L Carbon Dioxide 38 H (22-30) mmol/L BUN 26 H (9-20) mg/dL Creatinine 0.57 L (0.66-1.25) mg/dL Glucose 206 H (74-99) mg/dL Microbiology - Last 24 Hours (Table) 06/06/21 04:50 Blood Culture - Preliminary Blood No Growth after 24 hours 06/06/21 04:30 Blood Culture - Preliminary Blood No Growth after 24 hours Assessment and Plan Assessment: 1 Acute on chronic hypoxic respiratory failure related to acute exacerbation of COPD, with a possibility of mild fluid overload versus purulent tracheobronchitis related to pseudomonas aeruginosa, although his proBNP level was not elevated at 85. Patient does have history of restrictive pericarditis with evidence of pericardial calcifications noted on his CT chest previously 2 Recent hospitalization for acute exacerbation of COPD, and right lower lobe pneumonia with sputum cultures positive for pseudomonas aeruginosa and patient was discharged home to complete 2 week course of meropenem which she completed last week and PICC line was removed 3 Severe COPD with baseline FEV1 of 19% of predicted, stage IV COPD on home oxygen at 4 L, and Trilogy vent at AVAPS settings, patient had a chronic CO2 retainer, he was not a candidate for endobronchial Donaldson valve insertion related to chronic hypercapnic respiratory failure 4 History of smoking, 36 pack years, in remission for 1 year, in addition to marijuana use, also in remission 5 Hypertension 6 Paroxismal atrial fibrillation, atrial flutter, currently in sinus mechanism, on Eliquis for chronic anti-coagulation 7 Previous sputum colonization with pseudomonas aeruginosa 8 Poor baseline functional performance related to extremely poor lung function, and poor exercise capacity related to advanced COPD Plan: The patient was seen and evaluated by Dr. Mendoza Chest x-ray and labs reviewed Discontinue meropenem Complete prednisone taper Continue his home pulmonary medications Cleared for discharge from the pulmonary standpoint I, the cosigning physician, performed a history & physical examination of the patient. Lungs sounds are clear, diminished. Maintaining good O2 saturations in the 90s on 3 L/m per nasal cannula. I discussed the assessment and plan of care with my nurse practitioner, Estephania Aldridge. I attest to the above note as dictated by her.
[2021-06-07 15:02] VITALS: BMI 19.0
--- NOTE | 2021-06-08 12:15 | P.DS ---
Providers Date of admission: 06/06/21 07:16 Expected date of discharge: 06/07/21 Attending physician: Itzel López Consults: 06/06/21 07:22 Consult Physician Routine Consulting Provider: Pavel Mendoza Consult Reason/Comments: hypercarbic Do you want consulting provider notified?: Yes Primary care physician: Wolf Irizarry Hospital Course: Final diagnosis -Acute hypoxic respiratory failure requiring BiPAP: Patient normally wears 4 L of oxygen and will wean as tolerated -COPD exacerbation -History of alpha-1 antitrypsin deficiency -Altered mental status most likely secondary to assessment #1 -Recent sputum culture positive for pseudomonas aeruginosa required IV antibiotic therapy on discharge with a PICC line placement -Chronic hypoxic and hypercapnic respiratory failure secondary to COPD, alpha-1 antitrypsin deficiency -Paroxysmal Atrial fibrillation -Hypertension -Mild history of nicotine dependence, quit 1 year ago -DVT prophylaxis Discharge disposition Patient is being discharged in a stable condition with guarded prognosis to home. Patient will follow-up with Dr. Irizarry upon discharge. Patient will also follow-up with pulmonary and continue with palliative and [facility]. Patient will continue on a prednisone taper on discharge along with oral Lasix and Bumex. Total time taken is greater than 35 minutes. Hospital course This is a pleasant 55-year-old male who presented to the emergency department via EMS with worsening shortness of breath and acute altered mental status. Per the the patient has become more dyspneic and not able to function is normal and has become more weak and fatigued and was brought in for further evaluation. Patient normally wears 4 L of oxygen in the outpatient setting and was recently placed on BiPAP upon ED admission. Pulmonary has been consulted. Chest x-ray in the ER shows pulmonary edema slightly worse than previous along with pulmonary interstitial and airspace edema noted with some slight blunting of the costophrenic angles. EKG shows normal sinus rhythm with a rate of 86, QT QTc is 368/440 with some biatrial enlargement and an abnormal EKG. She has a past medical history of atrial fibrillation, COPD, hypertension, elbow 1 anti-trypsin deficiency, pancreatitis. Patient is a former smoker and has not been smoking for at least one year and quit in 2019. Patient is being admitted for COPD exacerbation with pulmonary on consult. Patient had received a PICC line on previous admission as sputum culture did show resistant pseudomonas aeruginosa along with Carolina albicans and patient had been receiving meropenem in the outpatient setting. She was also given IV Solu-Medrol and started on IV steroids [id number] along with continued bronchodilators. Admission Show a White Blood Count of 3.2 with a Hemoglobin of 12.6 and Current Platelets Are 275, D-Dimer Was Negative at 0.28, VBG CO2 Showing 89 and Bicarb Showing 43 with a pH of 7.31. Sodium Is 136 with a Potassium of 4.0 Carbon Dioxide Is 43, BUN Is 25 and Creatinine Is 0.74. Plasma Lactic Acid Was 1.1 and Magnesium 1.9. Troponin Was Negative and BNP Is 85 and COVID-19 Was Negative. 06/07/2021 Patient is seen and evaluated in follow-up currently sitting up in the bed comfortably on 4 L via nasal cannula and tolerating. Patient did use BiPAP overnight and states he feels better and his breathing has improved. Pulmonary evaluated the patient recommending close outpatient follow-up and continue on a prednisone taper along with Lasix 40 mg and Diamox. Arrangements are being made for transfer to home and patient will continue with home care and palliative. Currently no reports of chest pain, worsening shortness of breath, or palpitations. Patient is afebrile. No reports of nausea or vomiting and pat ient is tolerating diet. Patient and family will continue with palliative care in the outpatient setting. Guarded prognosis. GENERAL: The patient is alert 2-3 currently on 4l is a cannula which is his baseline,Well developed, well nourished. HEENT: Pupils are round and equally reacting to light. EOMI. No scleral icterus. No conjunctival pallor. Normocephalic, atraumatic. No pharyngeal erythema. No thyromegaly. CARDIOVASCULAR: S1 and S2 present. No murmurs, rubs, or gallops. PULMONARY: Diminished air entry without any crackles, some mild expiratory wheezing noted ABDOMEN: Soft, nontender, nondistended, normoactive bowel sounds. No palpable organomegaly. MUSCULOSKELETAL: No joint swelling or deformity. EXTREMITIES: No cyanosis, clubbing, or pedal edema. NEUROLOGICAL: Gross neurological examination did not reveal any focal deficits. diffusely weak SKIN: No rashes. Please refer to medication reconciliation sheet for a list of medications. Patient Condition at Discharge: Fair Plan - Discharge Summary Discharge Rx Participant: No New Discharge Prescriptions: New predniSONE 10 mg PO DIRECTED #30 tab Continue Fluticasone/Umeclidin/Vilanter [Trelegy Ellipta 100-62.5-25] 1 puff INHALATION RT-DAILY Albuterol Sulfate [Ventolin HFA] 2 puff INHALATION RT-Q4H PRN PRN Reason: Shortness Of Breath Melatonin 10 mg PO HS Vitamin B Complex 1 cap PO DAILY Multivitamins, Thera [Multivitamin (formulary)] 1 tab PO DAILY Ascorbic Acid [Vitamin C] 1,000 mg PO DAILY Tamsulosin [Flomax] 0.4 mg PO PC-SUPPER 30 Days #30 tab Albuterol Nebulized [Ventolin Nebulized] 2.5 mg INHALATION RT-QID 30 Days #90 ml Albuterol Nebulized [Ventolin Nebulized] 2.5 mg INHALATION RT-Q2H PRN ml PRN Reason: Shortness Of Breath Or Wheezing acetaZOLAMIDE [Diamox] 250 mg PO DAILY 30 Days #30 tab Apixaban [Eliquis] 5 mg PO BID #60 tab Mirtazapine [Remeron] 7.5 mg PO HS Loratadine [Claritin] 10 mg PO DAILY ALPRAZolam [Xanax] 0.5 mg PO TID PRN PRN Reason: Anxiety Famotidine [Pepcid] 20 mg PO DAILY Cholecalciferol [Vitamin D3 (25 Mcg = 1000 Iu)] 25 mcg PO DAILY Sertraline [Zoloft] 50 mg PO DAILY Diltiazem Cd [Cardizem CD] 360 mg PO DAILY 30 Days #120 cap Acetaminophen Tab [Tylenol] 650 mg PO Q6HR PRN tab PRN Reason: Mild Pain Or Fever > 100.5 Changed Furosemide [Lasix] 40 mg PO DAILY 30 Days #60 tab Discontinued Colchicine [Colcrys] 0.6 mg PO DAILY 30 Days #30 each Meropenem [Merrem] 1 gm IVPB Q8H 14 Days #42 each predniSONE [Deltasone] 20 mg PO DAILY Discharge Medication List Albuterol Sulfate [Ventolin HFA] 2 puff INHALATION RT-Q4H PRN 02/18/20 [History] Fluticasone/Umeclidin/Vilanter [Trelegy Ellipta 100-62.5-25] 1 puff INHALATION RT-DAILY 02/18/20 [History] Apixaban [Eliquis] 5 mg PO BID #60 tab 11/24/20 [Rx] Mirtazapine [Remeron] 7.5 mg PO HS 11/27/20 [History] ALPRAZolam [Xanax] 0.5 mg PO TID PRN 01/23/21 [History] Loratadine [Claritin] 10 mg PO DAILY 01/23/21 [History] Melatonin 10 mg PO HS 01/23/21 [History] Ascorbic Acid [Vitamin C] 1,000 mg PO DAILY 03/02/21 [History] Cholecalciferol [Vitamin D3 (25 Mcg = 1000 Iu)] 25 mcg PO DAILY 03/02/21 [History] Famotidine [Pepcid] 20 mg PO DAILY 03/02/21 [History] Multivitamins, Thera [Multivitamin (formulary)] 1 tab PO DAILY 03/02/21 [History] Vitamin B Complex 1 cap PO DAILY 03/02/21 [History] Sertraline [Zoloft] 50 mg PO DAILY 03/26/21 [History] Acetaminophen Tab [Tylenol] 650 mg PO Q6HR PRN tab 05/20/21 [Rx] Albuterol Nebulized [Ventolin Nebulized] 2.5 mg INHALATION RT-Q2H PRN ml 05/20/21 [Rx] Albuterol Nebulized [Ventolin Nebulized] 2.5 mg INHALATION RT-QID 30 Days #90 ml 05/20/21 [Rx] Diltiazem Cd [Cardizem CD] 360 mg PO DAILY 30 Days #120 cap 05/20/21 [Rx] Tamsulosin [Flomax] 0.4 mg PO PC-SUPPER 30 Days #30 tab 05/20/21 [Rx] Furosemide [Lasix] 40 mg PO DAILY 30 Days #60 tab 06/07/21 [Rx] acetaZOLAMIDE [Diamox] 250 mg PO DAILY 30 Days #30 tab 06/07/21 [Rx] predniSONE 10 mg PO DIRECTED #30 tab 06/07/21 [Rx] Follow up Appointment(s)/Referral(s): Pavel Mendoza MD [STAFF PHYSICIAN] - 06/23/21 1:00 pm Wolf Irizarry MD [Primary Care Provider] - 1-2 days [facility], [NON-STAFF] - As Needed (Agency will contact you.) [facility] [NON-STAFF] - As Needed Ambulatory/Diagnostic Orders: Basic Metabolic Panel [LAB.AMB] Time Frame: 3 Days, Location: None Selected Patient Instructions/Handouts: Chronic Respiratory Failure (DC) Activity/Diet/Wound Care/Special Instructions: Activity Limited until follow-up Follow-up with primary care provider upon discharge Follow-up with pulmonary outpatient Take medications as prescribed Repeat labs in 2-3 days to monitor electrolytes Continue with home care and palliative care continue heart healthy diet Discharge Disposition: HOME WITH HOME HEALTH SERVICES
== END 2021-06-07 16:29 | disposition home health service (06) | DRG 190 ==
LOC: EC 02:15 → 4SSUR 07:16
PROVIDERS: ADMIT Hospitalist; ATTEND Hospitalist
PROC: 5A09357 Assistance with Respiratory Ventilation, Less than 24 Consecutive Hours, Continuous Positive Airway Pressure (ICD-10-PCS; principal; 2021-06-06)
DX: J43.9 Emphysema, unspecified (principal); J96.21 Acute and chronic respiratory failure with hypoxia; J96.22 Acute and chronic respiratory failure with hypercapnia; J84.9 Interstitial pulmonary disease, unspecified; J81.1 Chronic pulmonary edema; I48.92 Unspecified atrial flutter; I31.9 Disease of pericardium, unspecified; I11.9 Hypertensive heart disease without heart failure; E88.01 Alpha-1-antitrypsin deficiency; I48.0 Paroxysmal atrial fibrillation; Z20.822 Contact with and (suspected) exposure to COVID-19; Z51.5 Encounter for palliative care; Z88.1 Allergy status to other antibiotic agents; Z88.0 Allergy status to penicillin; Z99.81 Dependence on supplemental oxygen; Z88.8 Allergy status to other drugs, medicaments and biological substances; Z79.899 Other long term (current) drug therapy; Z79.01 Long term (current) use of anticoagulants; Z87.891 Personal history of nicotine dependence; Z86.19 Personal history of other infectious and parasitic diseases
CPT/HCPCS: 36415; 71045; 80048; 80053; 82803; 83605; 83735; 83880; 84145; 84484; 85025; 85379; 85610; 85730; 87040; 87635; 93005; 94640; 94660; 99285

== ENCOUNTER 2021-06-12 18:56 | Inpatient (IN) | payer OTHER ==
[2021-06-12] MEDS ORDERED: MAGNESIUM SULFATE-D5W PMX 1 GM in DEXTROSE/WATER 1 100ML.BAG IVPB STA (19:02)
[2021-06-12] MEDS ORDERED: methylPREDNISolone SOD SUCCI 125 MG/2 ML VIAL IV STA (19:02)
[2021-06-12 19:32] LABS: HCT 44.9 % (39.0-53.0); HGB 14.2 gm/dL (13.0-17.5); MCH 30.3 pg (25.0-35.0); MCHC 31.5 g/dL (31.0-37.0); MCV 96.2 fL (80.0-100.0); Mean Platelet Volume 7.4; Platelet Count 335 k/uL (150-450); RBC 4.67 m/uL (4.30-5.90); RDW 14.7 % (11.5-15.5); WBC 13.6 k/uL (3.8-10.6)
[2021-06-12 19:36] LABS: ALT 69 U/L (4-49); AST 29 U/L (17-59); African American GFR (CKD) >90 (>60 ml/min/1.73 sqM); Albumin 3.4 g/dL (3.5-5.0); Alkaline Phosphatase 173 U/L (38-126); Blood Urea Nitrogen 22 mg/dL (9-20); Calcium 9.4 mg/dL (8.4-10.2); Chloride 82 mmol/L (98-107); Glucose 176 mg/dL (74-99); Non-African American GFR(CKD) >90 (>60 ml/min/1.73 sqM); Potassium 4.3 mmol/L (3.5-5.1); Sodium 136 mmol/L (137-145); Total Bilirubin 0.6 mg/dL (0.2-1.3); Total Protein 6.5 g/dL (6.3-8.2)
[2021-06-12 19:42] LABS: Anion Gap 6 mmol/L
[2021-06-12 19:47] LABS: Carbon Dioxide 48 mmol/L (22-30)
--- NOTE | 2021-06-12 19:53 | XR ---
EXAMINATION TYPE: XR chest 1V portable DATE OF EXAM: 06/12/2021 COMPARISON: NONE HISTORY: Short of breath TECHNIQUE: Single view FINDINGS: There is pulmonary diffuse interstitial edema. Heart size is normal. There are no hilar mas ses. There is no pleural effusion. IMPRESSION: Diffuse pulmonary interstitial edema is increased slightly compared to last exam. No pleu ral fluid seen to suggest heart failure.
[2021-06-12] MEDS ORDERED: FUROSEMIDE 10 MG/ML 4 ML VIAL IV STA (20:22)
[2021-06-12 20:41] LABS: Band Neutrophils % 11 %; Lymphocytes # (M) 1.09 k/uL (1.0-4.8); Monocytes # (M) 1.09 k/uL (0-1.0); Neutrophils % (M) 73 %; Nucleated Red Blood Cells 0 /100 WBC (0-0); Total Cells Counted 100
[2021-06-12] MEDS ORDERED: MEROPENEM 2 GM in SODIUM CHLORIDE 0.9% 100 ML IVPB STA (20:53)
[2021-06-12] MEDS ORDERED: NALOXONE 0.4 MG/ML 1 ML VIAL IV PRN (20:55)
--- NOTE | 2021-06-12 20:55 | ED ---
SOB HPI - General Chief Complaint: Shortness of Breath Stated Complaint: Difficulty Breathing Time Seen by Provider: 06/12/21 19:00 Source: EMS Mode of arrival: EMS Limitations: no limitations - History of Present Illness Initial Comments: 55-year-old male past medical history of alpha one antitypsin deficiency, A. fib, hypertension and presents emergency Department with reported shortness of breath. Patient was just seen in our emergency department for similar complaints and admitted to the hospital. He normally wears 4 L of oxygen at home. He is currently on a prednisone taper. No current antibiotic use. states that he was acting confused this morning. He was overly sleepy and falling asleep during his breathing treatments. She did place him on his home BiPAP that they have. His original oxygen saturations were 50%. Ambulance was called. Upon arrival to the house they did have original pulse ox of about 55%. He is placed on BiPAP en route to the hospital. Patient normally sees Dr. Mendoza for his chronic respiratory insufficiency. He denies any chest pain. No productive cough. No changes from his previous hospitalization. No other alleviating, precipitating or modifying factors - Related Data Home Medications Medication Instructions Recorded Confirmed Albuterol Sulfate [Ventolin HFA] 2 puff INHALATION RT-Q4H PRN 02/18/20 06/12/21 Fluticasone/Umeclidin/Vilanter 1 puff INHALATION RT-DAILY 02/18/20 06/12/21 [Trelegy Ellipta 100-62.5-25] Mirtazapine [Remeron] 7.5 mg PO HS 11/27/20 06/12/21 ALPRAZolam [Xanax] 0.5 mg PO TID PRN 01/23/21 06/12/21 Loratadine [Claritin] 10 mg PO DAILY 01/23/21 06/12/21 Melatonin 10 mg PO HS 01/23/21 06/12/21 Ascorbic Acid [Vitamin C] 1,000 mg PO DAILY 03/02/21 06/12/21 Cholecalciferol [Vitamin D3 (25 25 mcg PO DAILY 03/02/21 06/12/21 Mcg = 1000 Iu)] Famotidine [Pepcid] 20 mg PO DAILY 03/02/21 06/12/21 Multivitamins, Thera [Multivitamin 1 tab PO DAILY 03/02/21 06/12/21 (formulary)] Vitamin B Complex 1 cap PO DAILY 03/02/21 06/12/21 Sertraline [Zoloft] 50 mg PO DAILY 03/26/21 06/12/21 predniSONE See Taper PO DAILY 06/12/21 06/12/21 Previous Rx's Medication Instructions Recorded Apixaban [Eliquis] 5 mg PO BID #60 tab 11/24/20 Acetaminophen Tab [Tylenol] 650 mg PO Q6HR PRN tab 05/20/21 Albuterol Nebulized [Ventolin 2.5 mg INHALATION RT-Q2H PRN ml 05/20/21 Nebulized] Albuterol Nebulized [Ventolin 2.5 mg INHALATION RT-QID 30 Days 05/20/21 Nebulized] #90 ml Diltiazem Cd [Cardizem CD] 360 mg PO DAILY 30 Days #120 cap 05/20/21 Tamsulosin [Flomax] 0.4 mg PO PC-SUPPER 30 Days #30 tab 05/20/21 Furosemide [Lasix] 40 mg PO DAILY 30 Days #60 tab 06/07/21 acetaZOLAMIDE [Diamox] 250 mg PO DAILY 30 Days #30 tab 06/07/21 Simethicone Chew [Mylicon Chew] 160 mg PO TID #0 tab 06/17/21 predniSONE [Deltasone] 40 mg PO DAILY 7 Days #10 tab 06/17/21 Allergies Allergy/AdvReac Type Severity Reaction Status Date / Time ampicillin Allergy Unknown Verified 06/12/21 19:53 Childhood formoterol [From Perforomist] Allergy Anaphylaxis Verified 06/12/21 19:53 ipratropium Allergy Anaphylaxis Verified 06/12/21 19:53 Penicillins Allergy Unknown Verified 06/12/21 19:53 Childhood Review of Systems ROS Statement: Those systems with pertinent positive or pertinent negative responses have been documented in the HPI. ROS Other: All systems not noted in ROS Statement are negative. Past Medical History Past Medical History: Atrial Fibrillation, COPD, Hypertension Additional Past Medical History / Comment(s): Alpha 1 antitrypsin deficiency, pancreatitis. History of Any Multi-Drug Resistant Organisms: None Reported Past Surgical History: Tonsillectomy Additional Past Surgical History / Comment(s): Colonoscopy Past Anesthesia/Blood Transfusion Reactions: No Reported Reaction Past Psychological History: No Psychological Hx Reported Smoking Status: Former smoker Past Alcohol Use History: None Reported Past Drug Use History: None Reported - Past Family History Mother Family Medical History: Hypertension Additional Family Medical History / Comment(s): Hip/knee replacements. Mother d ied in her sleep in her 70s. Father Family Medical History: CVA/TIA Additional Family Medical History / Comment(s): Father is . General Exam Limitations: no limitations General appearance: alert, in distress Head exam: Present: atraumatic, normocephalic, normal inspection Eye exam: Present: normal appearance, PERRL, EOMI. Absent: scleral icterus, conjunctival injection, periorbital swelling ENT exam: Present: normal exam, mucous membranes moist Neck exam: Present: normal inspection. Absent: tenderness, meningismus, lymphadenopathy Respiratory exam: Present: respiratory distress, wheezes, accessory muscle use, decreased breath sounds. Absent: rales, rhonchi, stridor Cardiovascular Exam: Present: regular rate, normal rhythm, normal heart sounds. Absent: systolic murmur, diastolic murmur, rubs, gallop, clicks GI/Abdominal exam: Present: soft, normal bowel sounds. Absent: distended, tenderness, guarding, rebound, rigid Extremities exam: Present: normal inspection, full ROM, normal capillary refill. Absent: tenderness, pedal edema, joint swelling, calf tenderness Back exam: Present: normal inspection Neurological exam: Present: alert, oriented X3, CN II-XII intact Psychiatric exam: Present: normal affect, normal mood Skin exam: Present: warm, dry, intact, normal color. Absent: rash Course Vital Signs 06/12/21 06/12/21 06/12/21 18:57 20:48 22:15 Temperature 98.3 F 98.8 F Pulse Rate 88 83 Pulse Rate [ 75 Pulse Oximetery ] Respiratory 22 36 H 24 Rate Blood Pressure 136/84 132/86 Blood Pressure 114/76 [Left Arm] O2 Sat by Pulse 72 L 92 L 93 L Oximetry 06/12/21 06/13/21 06/13/21 23:00 00:00 02:00 Temperature Pulse Rate 81 Pulse Rate [ 86 86 Pulse Oximetery ] Respiratory 34 H 20 20 Rate Blood Pressure 149/96 Blood Pressure 131/90 [Left Arm] O2 Sat by Pulse 90 L 94 L Oximetry 06/13/21 06/13/21 06/13/21 04:00 08:34 09:12 Temperature 97.1 F L Pulse Rate 86 88 Pulse Rate [ 82 Pulse Oximetery ] Respiratory 13 18 Rate Blood Pressure 122/85 Blood Pressure 128/88 [Left Arm] O2 Sat by Pulse 97 96 Oximetry 06/13/21 06/13/21 06/13/21 09:22 09:33 11:44 Temperature Pulse Rate 87 87 89 Pulse Rate [ Pulse Oximetery ] Respiratory 24 22 Rate Blood Pressure 122/85 121/82 Blood Pressure [Left Arm] O2 Sat by Pulse 95 98 Oximetry 06/13/21 06/13/21 06/13/21 11:48 13:08 13:13 Temperature Pulse Rate 96 Pulse Rate [ Pulse Oximetery ] Respiratory 22 Rate Blood Pressure Blood Pressure [Left Arm] O2 Sat by Pulse 91 L Oximetry 06/13/21 06/13/21 13:22 14:01 Temperature 97.8 F Pulse Rate 88 87 Pulse Rate [ Pulse Oximetery ] Respiratory 22 Rate Blood Pressure 112/76 Blood Pressure [Left Arm] O2 Sat by Pulse 94 L Oximetry Medical Decision Making - Medical Decision Making Upon arrival patient's placed into room 3. He is transitioned to our BiPAP. He does have improvement in his mentation per EMS. IV is established laboratory studies are conducted. White count 13.6. CO2 48. Troponin 0.046. Chest x-ray demonstrates worsening pulmonary interstitial edema. He does take diuretics at home. Patient was given 40 mg IV. Blood cultures are obtained and the patient is given 1 dose of meropenem due to his elevated white blood cell count which could be attributed to his current steroid use. He is also given 125 mg of Solu-Medrol 1 g of magnesium. Recommended admission to the hospital for his profound hypoxia for which patient agreed to. Pulmonology will be counseled did. Patient remained in stable condition awaiting a bed on the floor - Lab Data Result diagrams: 06/16/21 05:38 06/16/21 15:33 Lab Results 06/12/21 06/12/21 06/12/21 Range/Units 19:07 19:07 19:07 WBC 13.6 H (3.8-10.6) k/uL RBC 4.67 (4.30-5.90) m/uL Hgb 14.2 (13.0-17.5) gm/dL Hct 44.9 (39.0-53.0) % MCV 96.2 (80.0-100.0) fL MCH 30.3 (25.0-35.0) pg MCHC 31.5 (31.0-37.0) g/dL RDW 14.7 (11.5-15.5) % Plt Count 335 (150-450) k/uL MPV 7.4 Neutrophils % (Manual) 73 % Band Neuts % (Manual) 11 % Lymphocytes % (Manual) 8 % Monocytes % (Manual) 8 % Neutrophils # (Manual) 11.40 H (1.3-7.7) k/uL Lymphocytes # (Manual) 1.09 (1.0-4.8) k/uL Monocytes # (Manual) 1.09 H (0-1.0) k/uL Nucleated RBCs 0 (0-0) /100 WBC Manual Slide Review Performed Sodium 136 L (137-145) mmol/L Potassium 4.3 (3.5-5.1) mmol/L Chloride 82 L (98-107) mmol/L Carbon Dioxide 48 H* (22-30) mmol/L Anion Gap 6 mmol/L BUN 22 H (9-20) mg/dL Creatinine 0.52 L (0.66-1.25) mg/dL Est GFR (CKD-EPI)AfAm >90 (>60 ml/min/1.73 sqM) Est GFR (CKD-EPI)NonAf >90 (>60 ml/min/1.73 sqM) Glucose 176 H (74-99) mg/dL Plasma Lactic Acid Andrei 1.8 (0.7-2.0) mmol/L Calcium 9.4 (8.4-10.2) mg/dL Total Bilirubin 0.6 (0.2-1.3) mg/dL AST 29 (17-59) U/L ALT 69 H (4-49) U/L Alkaline Phosphatase 173 H (38-126) U/L Troponin I (0.000-0.034) ng/mL NT-Pro-B Natriuret Pep pg/mL Total Protein 6.5 (6.3-8.2) g/dL Albumin 3.4 L (3.5-5.0) g/dL 10/10/21 10/10/21 Range/Units 19:07 19:07 WBC (3.8-10.6) k/uL RBC (4.30-5.90) m/uL Hgb (13.0-17.5) gm/dL Hct (39.0-53.0) % MCV (80.0-100.0) fL MCH (25.0-35.0) pg MCHC (31.0-37.0) g/dL RDW (11.5-15.5) % Plt Count (150-450) k/uL MPV Neutrophils % (Manual) % Band Neuts % (Manual) % Lymphocytes % (Manual) % Monocytes % (Manual) % Neutrophils # (Manual) (1.3-7.7) k/uL Lymphocytes # (Manual) (1.0-4.8) k/uL Monocytes # (Manual) (0-1.0) k/uL Nucleated RBCs (0-0) /100 WBC Manual Slide Review Sodium (137-145) mmol/L Potassium (3.5-5.1) mmol/L Chloride (98-107) mmol/L Carbon Dioxide (22-30) mmol/L Anion Gap mmol/L BUN (9-20) mg/dL Creatinine (0.66-1.25) mg/dL Est GFR (CKD-EPI)AfAm (>60 ml/min/1.73 sqM) Est GFR (CKD-EPI)NonAf (>60 ml/min/1.73 sqM) Glucose (74-99) mg/dL Plasma Lactic Acid Andrei (0.7-2.0) mmol/L Calcium (8.4-10.2) mg/dL Total Bilirubin (0.2-1.3) mg/dL AST (17-59) U/L ALT (4-49) U/L Alkaline Phosphatase (38-126) U/L Troponin I 0.046 H* (0.000-0.034) ng/mL NT-Pro-B Natriuret Pep 437 pg/mL Total Protein (6.3-8.2) g/dL Albumin (3.5-5.0) g/dL - EKG Data EKG Comments: EKG demonstrates normal sinus rhythm with a ventricular rate of 88. UT interval 160. QRS 98. QTC of 411. No acute ST segment elevations or depressions Critical Care Time Critical Care Time: Yes Critical Care Time: 32 minutes for bipap management Disposition Clinical Impression: Acute respiratory failure with hypoxia and hypercapnia, Alpha 1-antitrypsin PiMS phenotype, NSTEMI (non-ST elevated myocardial infarction), Chronic respiratory failure Disposition: ADMITTED IP TO THIS HOSP Condition: Serious Is patient prescribed a controlled substance at d/c from ED?: No Decision to Admit Reason: Admit from EC Decision Date: 06/12/21 Decision Time: 20:55
[2021-06-12] MEDS ORDERED: ALBUTEROL NEBULIZED 2.5 MG/3 ML INHALATION PRN (21:39)
[2021-06-12] MEDS ORDERED: ALPRAZolam 0.5 MG TAB PO PRN (21:39)
[2021-06-12] MEDS: APIXABAN 5 MG TAB PO SCH (22:33)
[2021-06-12] MEDS: MIRTAZAPINE 15 MG TAB PO SCH (22:33)
[2021-06-12 23:29] LABS: ABG Oxygen Saturation 91.5 % (94-97); ABG PH 7.35 (7.35-7.45); ABG PO2 66 mmHg (83-108); ABG TCO2 62 mmol/L (19-24); Allen Test Performed? Yes
[2021-06-12 23:41] LABS: ABG HCO3 59 mmol/L (21-25); ABG PCO2 106 mmHg (35-45)
[2021-06-12 23:42] LABS: ABG Base Excess 33.2 mmol/L
[2021-06-13] MEDS: methylPREDNISolone SOD SUCCI 40 MG/ML 1 ML VIAL IV SCH ×4 (00:27→22:58)
[2021-06-13 06:58] LABS: Basophils # (A) 0.1 k/uL (0-0.2); Basophils % (A) 1 %; Eosinophils % (A) 0 %; HCT 42.9 % (39.0-53.0); HGB 12.8 gm/dL (13.0-17.5); Hypochromasia Slight; Lymphocytes # (A) 0.6 k/uL (1.0-4.8); Lymphocytes % (A) 7 %; MCH 29.5 pg (25.0-35.0); MCHC 29.7 g/dL (31.0-37.0); MCV 99.1 fL (80.0-100.0); Mean Platelet Volume 7.7; Monocytes # (A) 0.2 k/uL (0-1.0); Monocytes % (A) 2 %; Neutrophils # (A) 7.6 k/uL (1.3-7.7); Neutrophils % (A) 90 %; Platelet Count 287 k/uL (150-450); RBC 4.33 m/uL (4.30-5.90); RDW 14.2 % (11.5-15.5); WBC 8.5 k/uL (3.8-10.6)
[2021-06-13 07:44] LABS: African American GFR (CKD) >90 (>60 ml/min/1.73 sqM); Blood Urea Nitrogen 23 mg/dL (9-20); Calcium 8.9 mg/dL (8.4-10.2); Chloride 79 mmol/L (98-107); Glucose 247 mg/dL (74-99); Non-African American GFR(CKD) >90 (>60 ml/min/1.73 sqM); Potassium 4.4 mmol/L (3.5-5.1); Sodium 137 mmol/L (137-145)
[2021-06-13 07:51] LABS: Anion Gap 4 mmol/L
[2021-06-13 07:57] LABS: Carbon Dioxide 54 mmol/L (22-30)
[2021-06-13] MEDS ORDERED: ALBUTEROL NEBULIZED 2.5 MG/3 ML INHALATION SCH (08:00)
[2021-06-13] MEDS ORDERED: NON FORMULARY DRUG (Fluticasone/Umeclidin/Vilanter [Trelegy Ellipta 100-62.5-25] 1 EACH Bl INHALATION SCH (08:00)
[2021-06-13] MEDS ORDERED: IPRATROPIUM-ALBUTEROL 3 ML NEB INHALATION PRN (08:22)
[2021-06-13] MEDS: SERTRALINE 50 MG TAB PO SCH (08:38)
[2021-06-13] MEDS: MULTIVITAMINS, THERA 1 EACH TAB PO SCH (08:38)
[2021-06-13] MEDS: FAMOTIDINE 20 MG TAB PO SCH (08:38)
[2021-06-13] MEDS: ASCORBIC ACID 500 MG TAB PO SCH (08:38)
[2021-06-13] MEDS: APIXABAN 5 MG TAB PO SCH ×2 (08:38→21:45)
[2021-06-13] MEDS: LORATADINE 10 MG TAB PO SCH (08:38)
[2021-06-13] MEDS: CHOLECALCIFEROL 25 MCG (1000 IU) TABLET PO SCH (08:38)
[2021-06-13] MEDS: DILTIAZEM CD 180 MG CAP.ER.24H PO SCH (08:41)
[2021-06-13] MEDS: acetaZOLAMIDE 250 MG TAB PO SCH (08:41)
--- NOTE | 2021-06-13 08:53 | P.CNPUL ---
History of Present Illness Consult date: 06/13/21 Requesting physician: Ольга Leung Reason for consult: dyspnea, hypoxemia, abnormal CXR/CT Chief complaint: altered mental status, dyspnea History of present illness: This is a 55-year-old male patient who is well-known to our service for his history of alpha-1 antitrypsin deficiency, severe COPD/emphysema with a baseline FEV1 of 19% of predicted and DLCO of 40% of predicted. Patient is on oxygen usually wears 4 L/m during the day, he is also on Trilogy ventilator at home on AVAPS setting. Other medical history includes 64-[id number]-cety smoking history, in addition he had smoked marijuana, hypertension, paroxysmal atrial fibrillation/atrial flutter patient is on oral anticoagulation, secondary pulmonary hypertension, pericardial calcifications compatible with prior pericarditis and possibility of restrictive pericarditis, history of pseudomonal pulmonary infections most recently his sputum cultures showed resistant strain of pseudomonas aeruginosa. Patient had completed outpatient course of meropenem. He also had a recent hospitalization and was discharged home on 06/06/2021. His stated that he is in palliative care however he has been agreeable to hospitalization. He is being seen in consultation this morning, is lethargic, but arousable, he is currently on BiPAP support with pressures of 12 and 6 and FiO2 of 40%, he states he does not know why he ended up back in the hospital. He denies any fever or chills at home, his cough is not any worse than usual, he is able to produce some phlegm which is yellowish in color, no hemoptysis, no complaints of chest pain. From the ER documentation patient was brought in per EMS on 06/12/2021 for evaluation of difficulty breathing. Patient's was concerned about his increased confusion yesterday morning, he was overly sleepy and falling asleep during his breathing treatments. She did place him on Trilogy vent support, however it is not clear whether she just put him on his original AVAPS mode or place him on BiPAP support with original FiO2 of 50%, she called EMS. When EMS arrived his pulse ox was 55%, patient was placed on BiPAP support and brought to the hospital. Patient states there have not been any other changes from his most previous hospitalization. His chest x- ray shows diffuse pulmonary interstitial edema which increased slightly compared to his most recent examination, no pleural fluid. Patient after his last admission was sent home on maintenance dose of Lasix 40 mg daily in addition to Diamox 250 mg daily which he states he has been compliant with. We did not think he had an active pulmonary infection at that time, and he had recently completed his course of meropenem. PO2 of 66, pCO2 of 106, and patient's son 0.35, and this was done on BiPAP settings and FiO2 of 40%. He was tested again for COVID-19 and was found to be negative. His blood work showed a white blood cell count of 13.6, hemoglobin of 14.2, neutrophil count is 11.4 has increased from last admission, sodium is 136, potassium is 4.3, chloride is 82, CO2 is 48, BUN of 22, creatinine 0.5 to, AST is 29, ALT is 69, alk phos was 173, his troponin was 0.046, proBNP level was 437. On examination patient has increased swelling in his pedal and ankle edema, is currently in atrial flutter with a controlled rate, he is on Eliquis for chronic anticoagulation, he is on Cardizem CD 360 mg daily for rate control, his most recent echocardiogram from 05/13/2021 showed normal LV function with EF of greater than 55%, mild MR, mild TR, right ventricular systolic pressure less than 35 mmHg. Patient was started on nebulized bronchodilators, IV steroids, his Diamox has been restarted and he was given a dose of IV Lasix in the emergency department. Seems to be breathing comfortably, he is arousable to voice, answers simple questions. Vital signs have been stable while in the emergency department, he has had no fever or chills, blood pressure stable. Review of Systems All systems: negative Constitutional: Denies chills, Denies fever Eyes: denies blurred vision, denies pain Ears, nose, mouth and throat: Denies headache, Denies sore throat Cardiovascular: Reports decreased exercise tolerance, Reports edema, Reports irregular heart beat, Reports leg edema, Denies chest pain, Denies shortness of breath Respiratory: Reports cough with sputum, Reports dyspnea, Reports home oxygen (past), Reports respiratory infections (activities as active as), Denies cough Gastrointestinal: Denies abdominal pain, Denies diarrhea, Denies nausea, Denies vomiting Musculoskeletal: Denies myalgias Integumentary: Denies pruritus, Denies rash Neurological: Denies numbness, Denies weakness Psychiatric: Denies anxiety, Denies depression Endocrine: Denies fatigue, Denies weight change Past Medical History Past Medical History: Atrial Fibrillation, COPD, Hypertension Additional Past Medical History / Comment(s): Alpha 1 antitrypsin deficiency, pancreatitis. History of Any Multi-Drug Resistant Organisms: None Reported Past Surgical History: Tonsillectomy Additional Past Surgical History / Comment(s): Colonoscopy Past Anesthesia/Blood Transfusion Reactions: No Reported Reaction Past Psychological History: No Psychological Hx Reported Additional Psychological History / Comment(s): Pt resides with his spouse. He is independent. Smoking Status: Former smoker Past Alcohol Use History: None Reported Additional Past Alcohol Use History / Comment(s): Pt started smoking in 1983 and quit one year ago, 2019. Pt states he was a heavier drinker as a young adult then quit at age 27 for a time and now drinks on occasion. Past Drug Use History: None Reported - Past Family History Mother Family Medical History: Hypertension Additional Family Medical History / Comment(s): Hip/knee replacements. Mother in her sleep in her 70s. Father Family Medical History: CVA/TIA Additional Family Medical History / Comment(s): Father is . Medications and Allergies Home Medications Medication Instructions Recorded Confirmed Type Albuterol Sulfate [Ventolin HFA] 2 puff INHALATION RT-Q4H PRN 02/18/20 06/12/21 History Fluticasone/Umeclidin/Vilanter 1 puff INHALATION RT-DAILY 02/18/20 06/12/21 History [Eren Izaguirreta 100-62.5-25] Apixaban [Eliquis] 5 mg PO BID #60 tab 11/24/20 06/12/21 Rx Mirtazapine [Remeron] 7.5 mg PO HS 11/27/20 06/12/21 History ALPRAZolam [Xanax] 0.5 mg PO TID PRN 01/23/21 06/12/21 History Loratadine [Claritin] 10 mg PO DAILY 01/23/21 06/12/21 History Melatonin 10 mg PO HS 01/23/21 06/12/21 History Ascorbic Acid [Vitamin C] 1,000 mg PO DAILY 03/02/21 06/12/21 History Cholecalciferol [Vitamin D3 (25 25 mcg PO DAILY 03/02/21 06/12/21 History Mcg = 1000 Iu)] Famotidine [Pepcid] 20 mg PO DAILY 03/02/21 06/12/21 History Multivitamins, Thera [Multivitamin 1 tab PO DAILY 03/02/21 06/12/21 History (formulary)] Vitamin B Complex 1 cap PO DAILY 03/02/21 06/12/21 History Sertraline [Zoloft] 50 mg PO DAILY 03/26/21 06/12/21 History Acetaminophen Tab [Tylenol] 650 mg PO Q6HR PRN tab 05/20/21 06/12/21 Rx Albuterol Nebulized [Ventolin 2.5 mg INHALATION RT-Q2H PRN ml 05/20/21 06/12/21 Rx Nebulized] Albuterol Nebulized [Ventolin 2.5 mg INHALATION RT-QID 30 Days 05/20/21 06/12/21 Rx Nebulized] #90 ml Diltiazem Cd [Cardizem CD] 360 mg PO DAILY 30 Days #120 cap 05/20/21 06/12/21 Rx Tamsulosin [Flomax] 0.4 mg PO PC-SUPPER 30 Days #30 tab 05/20/21 06/12/21 Rx Furosemide [Lasix] 40 mg PO DAILY 30 Days #60 tab 06/07/21 06/12/21 Rx acetaZOLAMIDE [Diamox] 250 mg PO DAILY 30 Days #30 tab 06/07/21 06/12/21 Rx predniSONE See Taper PO DAILY 06/12/21 06/12/21 History Allergies Allergy/AdvReac Type Severity Reaction Status Date / Time ampicillin Allergy Unknown Verified 06/12/21 19:53 Childhood formoterol [From Perforomist] Allergy Anaphylaxis Verified 06/12/21 19:53 ipratropium Allergy Anaphylaxis Verified 06/12/21 19:53 Penicillins Allergy Unknown Verified 06/12/21 19:53 Childhood Physical Exam Vitals: Vital Signs Temp Pulse Pulse Resp BP BP Pulse Ox 06/13/21 08:34 86 18 122/85 96 06/13/21 04:00 97.1 F L 82 13 128/88 97 06/13/21 02:00 86 20 06/13/21 00:00 86 20 131/90 94 L 06/12/21 23:00 81 34 H 149/96 90 L 06/12/21 22:15 98.8 F 75 24 114/76 93 L 06/12/21 20:48 83 36 H 132/86 92 L 06/12/21 18:57 98.3 F 88 22 136/84 72 L Intake and Output 06/12/21 06/13/21 06/13/21 22:59 06:59 14:59 Output Total 950 Balance -950 Output: Urine 950 Other: Voiding Method Urinal # Voids 2 Weight 63.503 kg 63.503 kg GENERAL EXAM:Sleepy but arousable to voice very pleasant, 55-year-old white male, currently on BiPAP support with pressures of 12 and 6 and FiO2 of 40%comfortable in no apparent distress. HEAD: Normocephalic/atraumatic. EYES: Normal reaction of pupils, equal size. Conjunctiva pink, sclera white. NOSE: Clear with pink turbinates. THROAT: No erythema or exudates. NECK: No masses, no JVD, no thyroid enlargement, no adenopathy. CHEST: No chest wall deformity. Symmetrical expansion. LUNGS: Equal air entry with very diminished breath sounds bilaterally CVS: Regular rate and rhythm, normal S1 and S2, no gallops, no murmurs, no rubs ABDOMEN: Soft, nontender. No hepatosplenomegaly, normal bowel sounds, no guarding or rigidity. EXTREMITIES: No clubbing, 1+ lower extremity edema, 1+ ankle and pedal edema, no cyanosis, 2+ pulses and upper and lower extremities. MUSCULOSKELETAL: Muscle strength and tone normal. SPINE: No scoliosis or deformity SKIN: No rashes CENTRAL NERVOUS SYSTEM:lethargic but arousable. No focal deficits, tone is n ormal in all 4 extremities. Results - Laboratory Findings CBC and BMP: 06/13/21 06:26 06/13/21 06:26 ABG WBC 8.5 k/uL (3.8-10.6) 06/13/21 06:26 RBC 4.33 m/uL (4.30-5.90) 06/13/21 06:26 Hgb 12.8 gm/dL (13.0-17.5) L 06/13/21 06:26 Hct 42.9 % (39.0-53.0) 06/13/21 06:26 MCV 99.1 fL (80.0-100.0) 06/13/21 06:26 MCH 29.5 pg (25.0-35.0) 06/13/21 06:26 MCHC 29.7 g/dL (31.0-37.0) L 06/13/21 06:26 RDW 14.2 % (11.5-15.5) 06/13/21 06:26 Plt Count 287 k/uL (150-450) 06/13/21 06:26 MPV 7.7 06/13/21 06:26 Neutrophils % 90 % 06/13/21 06:26 Neutrophils % (Manual) 73 % 06/12/21 19:07 Band Neuts % (Manual) 11 % 06/12/21 19:07 Lymphocytes % 7 % 06/13/21 06:26 Lymphocytes % (Manual) 8 % 06/12/21 19:07 Monocytes % 2 % 06/13/21 06:26 Monocytes % (Manual) 8 % 06/12/21 19:07 Eosinophils % 0 % 06/13/21 06:26 Basophils % 1 % 06/13/21 06:26 Neutrophils # 7.6 k/uL (1.3-7.7) 06/13/21 06:26 Neutrophils # (Manual) 11.40 k/uL (1.3-7.7) H 06/12/21 19:07 Lymphocytes # 0.6 k/uL (1.0-4.8) L 06/13/21 06:26 Lymphocytes # (Manual) 1.09 k/uL (1.0-4.8) 06/12/21 19:07 Monocytes # 0.2 k/uL (0-1.0) 06/13/21 06:26 Monocytes # (Manual) 1.09 k/uL (0-1.0) H 06/12/21 19:07 Eosinophils # 0.0 k/uL (0-0.7) 06/13/21 06:26 Basophils # 0.1 k/uL (0-0.2) 06/13/21 06:26 Nucleated RBCs 0 /100 WBC (0-0) 06/12/21 19:07 Manual Slide Review Performed 06/12/21 19:07 Hypochromasia Slight 06/13/21 06:26 Sample Site Left Radial 06/12/21 23:27 ABG pH 7.35 (7.35-7.45) 06/12/21 23:27 ABG pCO2 106 mmHg (35-45) H* 06/12/21 23:27 ABG pO2 66 mmHg (83-108) L 06/12/21 23:27 ABG HCO3 59 mmol/L (21-25) H* 06/12/21 23:27 ABG Total CO2 62 mmol/L (19-24) H 06/12/21 23:27 ABG O2 Saturation 91.5 % (94-97) L 06/12/21 23:27 ABG Base Excess 33.2 mmol/L 06/12/21 23:27 Chencho Test Yes 06/12/21 23:27 FiO2 40 % 06/12/21 23:27 Sodium 137 mmol/L (137-145) 06/13/21 06:26 Potassium 4.4 mmol/L (3.5-5.1) 06/13/21 06:26 Chloride 79 mmol/L (98-107) L 06/13/21 06:26 Carbon Dioxide 54 mmol/L (22-30) H* 06/13/21 06:26 Anion Gap 4 mmol/L 06/13/21 06:26 BUN 23 mg/dL (9-20) H 06/13/21 06:26 Creatinine 0.58 mg/dL (0.66-1.25) L 06/13/21 06:26 Est GFR (CKD-EPI)AfAm >90 (>60 ml/min/1.73 sqM) 06/13/21 06:26 Est GFR (CKD-EPI)NonAf >90 (>60 ml/min/1.73 sqM) 06/13/21 06:26 Glucose 247 mg/dL (74-99) H 06/13/21 06:26 Plasma Lactic Acid Andrei 1.8 mmol/L (0.7-2.0) 06/12/21 19:07 Calcium 8.9 mg/dL (8.4-10.2) 06/13/21 06:26 Total Bilirubin 0.6 mg/dL (0.2-1.3) 06/12/21 19:07 AST 29 U/L (17-59) 06/12/21 19:07 ALT 69 U/L (4-49) H 06/12/21 19:07 Alkaline Phosphatase 173 U/L (38-126) H 06/12/21 19:07 Troponin I 0.030 ng/mL (0.000-0.034) 06/13/21 01:07 NT-Pro-B Natriuret Pep 437 pg/mL 06/12/21 19:07 Total Protein 6.5 g/dL (6.3-8.2) 06/12/21 19:07 Albumin 3.4 g/dL (3.5-5.0) L 06/12/21 19:07 Coronavirus (PCR) Not Detected (Not Detectd) 06/12/21 21:04 Abnormal lab findings: Abnormal Labs 06/12/21 06/12/21 06/12/21 19:07 19:07 19:07 WBC 13.6 H Hgb MCHC Neutrophils # (Manual) 11.40 H Lymphocytes # Monocytes # (Manual) 1.09 H ABG pCO2 ABG pO2 ABG HCO3 ABG Total CO2 ABG O2 Saturation Sodium 136 L Chloride 82 L Carbon Dioxide 48 H* BUN 22 H Creatinine 0.52 L Glucose 176 H ALT 69 H Alkaline Phosphatase 173 H Troponin I 0.046 H* Albumin 3.4 L 06/12/21 06/12/21 06/13/21 22:34 23:27 06:26 WBC Hgb 12.8 L MCHC 29.7 L Neutrophils # (Manual) Lymphocytes # 0.6 L Monocytes # (Manual) ABG pCO2 106 H* ABG pO2 66 L ABG HCO3 59 H* ABG Total CO2 62 H ABG O2 Saturation 91.5 L Sodium Chloride Carbon Dioxide BUN Creatinine Glucose ALT Alkaline Phosphatase Troponin I 0.039 H* Albumin 06/13/21 06:26 WBC Hgb MCHC Neutrophils # (Manual) Lymphocytes # Monocytes # (Manual) ABG pCO2 ABG pO2 ABG HCO3 ABG Total CO2 ABG O2 Saturation Sodium Chloride 79 L Carbon Dioxide 54 H* BUN 23 H Creatinine 0.58 L Glucose 247 H ALT Alkaline Phosphatase Troponin I Albumin - Diagnostic Findings Chest x-ray: report reviewed, image reviewed Assessment and Plan Plan: Assessment: #1. Acute on chronic hypoxic respiratory failure related to acute exacerbation of COPD, with a possibility of mild fluid overload versus interstitial pneumonia, although his proBNP level was not elevated at 434, however has increased since last admission, and patient presented with signs of fluid overload including increased lower extremity edema, and interstitial edema on his chest x-ray. Patient does have history of restrictive pericarditis with evidence of pericardial calcifications noted on his CT chest previously. COVID- 19 n PCR was negativeegative #2. Recent hospitalization for acute exacerbation of COPD and fluid overload, no evidence of infection during that admission. Patient was discharged home on maintenance dose of oral Lasix 40 mg daily, in addition to Diamox 250 mg daily, discharged home on 06/06/2021 and #3. Recent right lower lobe pneumonia with sputum cultures positive for pseudo monas aeruginosa, patient had completed outpatient course of IV meropenem #4. Severe COPD with baseline FEV1 of 19% of predicted, stage IV COPD on home oxygen at 4 L, and Trilogy vent at AVAPS settings, patient had a chronic CO2 retainer, he was not a candidate for endobronchial Prosperity valve insertion related to chronic hypercapnic respiratory failure #5. History of smoking, 36 pack years, in remission for 1 year, in addition to marijuana use, also in remission #6. Hypertension #7. Paroxismal atrial fibrillation/atrial flutter, currently in a flutterwith a controlled rate, patient is on a combination of Eliquis and Cardizem CD 360 mg at home #8. Previous sputum colonization with pseudomonas aeruginosa #9. Poor baseline functional performance related to extremely poor lung funct ion, and poor exercise capacity related to advanced COPD, been most recently patient was placed in palliative care Plan: Continue maintenance dose of Lasix, 40 mg IV push once daily We will add meropenem Send a procalcitonin level Continue IV Solu-Medrol, and nebulized bronchodilators BiPAP support with pressures of 12 and 6 and FiO2 of 40%, as a patient wakes up more he may be placed on Nasal cannula Follow-up labs, CBC and BMP tomorrow, CXR We'll continue to follow his clinical course Patient has already been placed in palliative care, he has been progressively declining, and hospice may be appropriate for him at this time I performed a history & physical examination of the patient and discussed their management with my nurse practitioner, Elida Cardoso. I reviewed the nurse practitioner's note and agree with the documented findings and plan of care. Lung sounds are positive for diffuse wheezes throughout the lung miles. The findings and the impression was discussed with the patient. I attest to the documentation by the nurse practitioner. Time with Patient: Greater than 30
[2021-06-13] MEDS ORDERED: NON FORMULARY DRUG (Vitamin B Complex [Vitamin B Complex] 1 EACH Capsule) PO SCH (09:00)
[2021-06-13] MEDS: IPRATROPIUM-ALBUTEROL 3 ML NEB INHALATION SCH ×4 (09:12→19:55)
[2021-06-13] MEDS: FUROSEMIDE 10 MG/ML 4 ML VIAL IV SCH (09:34)
[2021-06-13] MEDS: MEROPENEM 2 GM in SODIUM CHLORIDE 0.9% 100 ML IVPB SCH ×2 (17:51→22:56)
--- NOTE | 2021-06-13 17:52 | P.HPIM ---
History of Present Illness H&P Date: 06/13/21 Chief Complaint: Shortness of breath Patient is a 55-year-old male with a known history of COPD/ emphysema, paroxysmal atrial fibrillation on anticoagulation with Eliquis, also 1 antitrypsin deficiency, previous history of smoking presents to ER with complaints of worsening shortness of breath. Patient is on 4 L oxygen by nasal cannula. Patient is currently taking prednisone tapering course prior to admission. Patient was brought to the hospital by his and also states that he was acting confused since morning. He is becoming more sleepy and falling asleep during his breathing treatments. She did place him on his home BiPAP and oxygen saturations were down to 50%. She called ambulance and depression was brought to the hospital. Patient follows with Dr. Mendoza as an outpatient. Patient denied any fever or chills. Cough without sputum production. No co mplaints of chest pain. Denied any recent illnesses. No nausea vomiting abdominal pain or diarrhea. No dysuria or hematuria. Chest x-ray showed diffuse pulmonary interstitial edema is increased slightly compared to last exam. No pleural fluid seen to suggest heart failure. Next and EKG showed normal sinus rhythm. ABG showed pH of 7.35 pCO2 106 pO2 66 Laboratory data showed the visit that 0.6 hemoglobin 14.2 and platelets 335 Sodium 136 potassium 4.3 chloride 82 bicarb is 48 BUN 22 and creatinine 0.52 Troponin 0.046, 0.039 and 0.030 ProBNP 437 COVID-19 not detected Review of Systems Constitutional: Patient denies any fever or chills . No generalized weakness or weight loss. Abdomen: Patient denied nausea vomiting and diarrhea and abdominal pain. Cardiovascular: Patient denies any chest pain or short of breath no palpitations. Respiratory: Patient does have cough without much sputum production via does have shortness of breath. Complete review of systems could not be obtained from the patient since the patient is wearing BiPAP. Past Medical History Past Medical History: Atrial Fibrillation, COPD, Hypertension Additional Past Medical History / Comment(s): Alpha 1 antitrypsin deficiency, pancreatitis. History of Any Multi-Drug Resistant Organisms: None Reported Past Surgical History: Tonsillectomy Additional Past Surgical History / Comment(s): Colonoscopy Past Anesthesia/Blood Transfusion Reactions: No Reported Reaction Past Psychological History: No Psychological Hx Reported Additional Psychological History / Comment(s): Pt resides with his spouse. He is independent. Smoking Status: Former smoker Past Alcohol Use History: None Reported Additional Past Alcohol Use History / Comment(s): Pt started smoking in 1983 and quit one year ago, 2019. Pt states he was a heavier drinker as a young adult then quit at age 27 for a time and now drinks on occasion. Past Drug Use History: None Reported - Past Family History Mother Family Medical History: Hypertension Additional Family Medical History / Comment(s): Hip/knee replacements. Mother in her sleep in her 70s. Father Family Medical History: CVA/TIA Additional Family Medical History / Comment(s): Father is . Medications and Allergies Home Medications Medication Instructions Recorded Confirmed Type Albuterol Sulfate [Ventolin HFA] 2 puff INHALATION RT-Q4H PRN 02/18/20 06/12/21 History Fluticasone/Umeclidin/Vilanter 1 puff INHALATION RT-DAILY 02/18/20 06/12/21 History [Trelegy Ellipta 100-62.5-25] Apixaban [Eliquis] 5 mg PO BID #60 tab 11/24/20 06/12/21 Rx Mirtazapine [Remeron] 7.5 mg PO HS 11/27/20 06/12/21 History ALPRAZolam [Xanax] 0.5 mg PO TID PRN 01/23/21 06/12/21 History Loratadine [Claritin] 10 mg PO DAILY 01/23/21 06/12/21 History Melatonin 10 mg PO HS 01/23/21 06/12/21 History Ascorbic Acid [Vitamin C] 1,000 mg PO DAILY 03/02/21 06/12/21 History Cholecalciferol [Vitamin D3 (25 25 mcg PO DAILY 03/02/21 06/12/21 History Mcg = 1000 Iu)] Famotidine [Pepcid] 20 mg PO DAILY 03/02/21 06/12/21 History Multivitamins, Thera [Multivitamin 1 tab PO DAILY 03/02/21 06/12/21 History (formulary)] Vitamin B Complex 1 cap PO DAILY 03/02/21 06/12/21 History Sertraline [Zoloft] 50 mg PO DAILY 03/26/21 06/12/21 History Acetaminophen Tab [Tylenol] 650 mg PO Q6HR PRN tab 05/20/21 06/12/21 Rx Albuterol Nebulized [Ventolin 2.5 mg INHALATION RT-Q2H PRN ml 05/20/21 06/12/21 Rx Nebulized] Albuterol Nebulized [Ventolin 2.5 mg INHALATION RT-QID 30 Days 05/20/21 06/12/21 Rx Nebulized] #90 ml Diltiazem Cd [Cardizem CD] 360 mg PO DAILY 30 Days #120 cap 05/20/21 06/12/21 Rx Tamsulosin [Flomax] 0.4 mg PO PC-SUPPER 30 Days #30 tab 05/20/21 06/12/21 Rx Furosemide [Lasix] 40 mg PO DAILY 30 Days #60 tab 06/07/21 06/12/21 Rx acetaZOLAMIDE [Diamox] 250 mg PO DAILY 30 Days #30 tab 06/07/21 06/12/21 Rx predniSONE See Taper PO DAILY 06/12/21 06/12/21 History Allergies Allergy/AdvReac Type Severity Reaction Status Date / Time ampicillin Allergy Unknown Verified 06/12/21 19:53 Childhood formoterol [From Perforomist] Allergy Anaphylaxis Verified 06/12/21 19:53 ipratropium Allergy Anaphylaxis Verified 06/12/21 19:53 Penicillins Allergy Unknown Verified 06/12/21 19:53 Childhood Physical Exam Vitals: Vital Signs Temp Pulse Pulse Resp BP BP Pulse Ox 06/13/21 09:33 87 24 122/85 95 06/13/21 09:22 87 06/13/21 09:12 88 06/13/21 08:34 86 18 122/85 96 06/13/21 04:00 97.1 F L 82 13 128/88 97 06/13/21 02:00 86 20 06/13/21 00:00 86 20 131/90 94 L 06/12/21 23:00 81 34 H 149/96 90 L 06/12/21 22:15 98.8 F 75 24 114/76 93 L 06/12/21 20:48 83 36 H 132/86 92 L 06/12/21 18:57 98.3 F 88 22 136/84 72 L Intake and Output 06/12/21 06/13/21 06/13/21 22:59 06:59 14:59 Output Total 950 Balance -950 Output: Urine 950 Other: Voiding Method Urinal # Voids 2 Weight 63.503 kg 63.503 kg PHYSICAL EXAMINATION: Patient is lying in the bed comfortably, no acute distress, awake alert and oriented.. HEENT: Normocephalic. Neck is supple. Pupils reactive. Nostrils clear. Oral cavity is moist. Neck reveals no JVD, carotid bruits, or thyromegaly. CHEST EXAMINATION: Trachea is central. Symmetrical expansion. Bilateral diminished sounds and expiratory wheeze. Nonlabored breathing. CARDIAC: Normal S1, S2 with no gallops. No murmurs ABDOMEN: Soft. Bowel sounds normal. No organomegaly. No abdominal bruits. Extremities: reveal no edema. No clubbing or cyanosis Neurologically awake, alert, oriented x3 with well-coordinated movements. No focal deficits noted Skin: No rash or skin lesions. Psychiatric: Coperative. Nonsuicidal Musculoskeletal: No joint swelling or deformity. Normal range of motion. Results CBC & Chem 7: 06/13/21 06:26 06/13/21 06:26 Labs: Abnormal Lab Results - Last 24 Hours (Table) 06/12/21 06/12/21 06/12/21 Range/Units 19:07 19:07 19:07 WBC 13.6 H (3.8-10.6) k/uL Hgb (13.0-17.5) gm/dL MCHC (31.0-37.0) g/dL Neutrophils # (Manual) 11.40 H (1.3-7.7) k/uL Lymphocytes # (1.0-4.8) k/uL Monocytes # (Manual) 1.09 H (0-1.0) k/uL ABG pCO2 (35-45) mmHg ABG pO2 (83-108) mmHg ABG HCO3 (21-25) mmol/L ABG Total CO2 (19-24) mmol/L ABG O2 Saturation (94-97) % Sodium 136 L (137-145) mmol/L Chloride 82 L (98-107) mmol/L Carbon Dioxide 48 H* (22-30) mmol/L BUN 22 H (9-20) mg/dL Creatinine 0.52 L (0.66-1.25) mg/dL Glucose 176 H (74-99) mg/dL ALT 69 H (4-49) U/L Alkaline Phosphatase 173 H (38-126) U/L Troponin I 0.046 H* (0.000-0.034) ng/mL Albumin 3.4 L (3.5-5.0) g/dL 06/12/21 06/12/21 06/13/21 Range/Units 22:34 23:27 06:26 WBC (3.8-10.6) k/uL Hgb 12.8 L (13.0-17.5) gm/dL MCHC 29.7 L (31.0-37.0) g/dL Neutrophils # (Manual) (1.3-7.7) k/uL Lymphocytes # 0.6 L (1.0-4.8) k/uL Monocytes # (Manual) (0-1.0) k/uL ABG pCO2 106 H* (35-45) mmHg ABG pO2 66 L (83-108) mmHg ABG HCO3 59 H* (21-25) mmol/L ABG Total CO2 62 H (19-24) mmol/L ABG O2 Saturation 91.5 L (94-97) % Sodium (137-145) mmol/L Chloride (98-107) mmol/L Carbon Dioxide (22-30) mmol/L BUN (9-20) mg/dL Creatinine (0.66-1.25) mg/dL Glucose (74-99) mg/dL ALT (4-49) U/L Alkaline Phosphatase (38-126) U/L Troponin I 0.039 H* (0.000-0.034) ng/mL Albumin (3.5-5.0) g/dL 06/13/21 Range/Units 06:26 WBC (3.8-10.6) k/uL Hgb (13.0-17.5) gm/dL MCHC (31.0-37.0) g/dL Neutrophils # (Manual) (1.3-7.7) k/uL Lymphocytes # (1.0-4.8) k/uL Monocytes # (Manual) (0-1.0) k/uL ABG pCO2 (35-45) mmHg ABG pO2 (83-108) mmHg ABG HCO3 (21-25) mmol/L ABG Total CO2 (19-24) mmol/L ABG O2 Saturation (94-97) % Sodium (137-145) mmol/L Chloride 79 L (98-107) mmol/L Carbon Dioxide 54 H* (22-30) mmol/L BUN 23 H (9-20) mg/dL Creatinine 0.58 L (0.66-1.25) mg/dL Glucose 247 H (74-99) mg/dL ALT (4-49) U/L Alkaline Phosphatase (38-126) U/L Troponin I (0.000-0.034) ng/mL Albumin (3.5-5.0) g/dL Thrombosis Risk Factor Assmnt - DVT/VTE Prophylaxis DVT/VTE Prophylaxis: Pharmacologic Prophylaxis ordered - Choose All That Apply Any of the Below Risk Factors Present?: Yes Each Factor Represents 1 point: Abnormal pulmonary function (COPD), Acute [place], Swollen legs (current) Thrombosis Risk Factor Assessment Total Risk Factor Score: 3 Thrombosis Risk Factor Assessment Level: Moderate Risk Assessment and Plan Assessment: Acute on chronic hypoxic and hypercapnic respiratory failure secondary to severe COPD exacerbation and diffuse interstitial edema. Recent admission with acute COPD exacerbation and right lower lobe pneumonia with sputum cultures positive for Pseudomonas, completed antibiotic course with IV meropenem. Chronic hypoxic respiratory failure on 4 L oxygen with another cannula Severe COPD with baseline FEV1 of 90% of predicted. Paroxysmal atrial fibrillation on anticoagulation with Eliquis and rate controlled with Cardizem. [place] 1 antitrypsin deficiency History of smoking Hypertension Plan: Patient is currently on BiPAP. Continue with oxygen supplementation, DuoNeb's and methylprednisolone 40 mg every 8 hourly.. Added Pulmicort and Perforomist. Lasix changed to IV 40 mg daily. Continue with acetazolamide Follow-up sputum cultures and started on meropenem due to previous Pseudomonas in the sputum cultures. Continue with home medications including Eliquis and Cardizem. Prognosis is guarded with poor functional status and comorbid conditions. Pulmonary is on board. . Time with Patient: Greater than 30
[2021-06-13] MEDS: TAMSULOSIN 0.4 MG CAP.ER.24H PO SCH (17:53)
[2021-06-13] MEDS: FORMOTEROL FUMARATE 20 MCG/2 ML NEBU INHALATION SCH (19:55)
[2021-06-13] MEDS: BUDESONIDE 1 MG/2 ML NEBU INHALATION SCH (19:55)
[2021-06-13 20:09] LABS: Glucose,Whole Blood 405 mg/dL (75-99)
[2021-06-13] MEDS: INSULIN ASPART (NovoLOG) 100 UNIT/ML VIAL SQ SCH (21:26)
[2021-06-13] MEDS ORDERED: INSULIN ASPART (NovoLOG) 100 UNIT/ML VIAL SQ ONE (21:45)
[2021-06-13] MEDS: MIRTAZAPINE 15 MG TAB PO SCH (21:45)
[2021-06-13] MEDS ORDERED: INSULIN DETEMIR (LEVEMIR) 100 UNIT/ML SYR SQ ONE (21:45)
[2021-06-14 02:11] LABS: Glucose,Whole Blood 87 mg/dL (75-99)
[2021-06-14 06:08] LABS: Glucose,Whole Blood 49 mg/dL (75-99)
[2021-06-14 06:25] LABS: Glucose,Whole Blood 65 mg/dL (75-99)
[2021-06-14] MEDS: INSULIN ASPART (NovoLOG) 100 UNIT/ML VIAL SQ SCH ×4 (06:25→21:00)
[2021-06-14 06:40] LABS: Glucose,Whole Blood 88 mg/dL (75-99)
--- NOTE | 2021-06-14 06:43 | XR ---
EXAMINATION TYPE: XR chest 1V portable DATE OF EXAM: 06/14/2021 CLINICAL HISTORY: Difficulty breathing and CHF progress study. TECHNIQUE: Single AP portable upright view of the chest is obtained. COMPARISON: Chest x-ray from 2 days earlier and older studies. CTA chest May 13, 2021 FINDINGS: Chronic parenchymal changes bilaterally are redemonstrated with reticulonodular increased o pacities in the lower lungs greater in the right lung. Peribronchial wall thickening right lower lobe redemonstrated. Cardiac silhouette size is stable with in normal limits. Pericardial calcifications redemonstrated. Osseous structures are intact. No perica rdial effusion or pneumothorax noted. IMPRESSION: Chronic parenchymal changes with areas of acute or atypical infiltrate in the lower lungs particularly right lower lobe not excluded. No significant change from most recent chest x-ray. No c ardiomegaly or pericardial effusions seen.
[2021-06-14] MEDS: FORMOTEROL FUMARATE 20 MCG/2 ML NEBU INHALATION SCH ×2 (08:00→20:34)
[2021-06-14] MEDS: IPRATROPIUM-ALBUTEROL 3 ML NEB INHALATION SCH ×4 (08:00→20:16)
[2021-06-14] MEDS: BUDESONIDE 1 MG/2 ML NEBU INHALATION SCH ×2 (08:00→20:16)
[2021-06-14] MEDS: MULTIVITAMINS, THERA 1 EACH TAB PO SCH (08:13)
[2021-06-14] MEDS: APIXABAN 5 MG TAB PO SCH ×2 (08:13→21:00)
[2021-06-14] MEDS: acetaZOLAMIDE 250 MG TAB PO SCH (08:13)
[2021-06-14] MEDS: SERTRALINE 50 MG TAB PO SCH (08:13)
[2021-06-14] MEDS: FUROSEMIDE 10 MG/ML 4 ML VIAL IV SCH (08:13)
[2021-06-14] MEDS: ASCORBIC ACID 500 MG TAB PO SCH (08:13)
[2021-06-14] MEDS: DILTIAZEM CD 180 MG CAP.ER.24H PO SCH (08:14)
[2021-06-14] MEDS: CHOLECALCIFEROL 25 MCG (1000 IU) TABLET PO SCH (08:14)
[2021-06-14] MEDS: FAMOTIDINE 20 MG TAB PO SCH (08:14)
[2021-06-14] MEDS: methylPREDNISolone SOD SUCCI 40 MG/ML 1 ML VIAL IV SCH ×3 (08:14→23:33)
[2021-06-14] MEDS: LORATADINE 10 MG TAB PO SCH (08:14)
[2021-06-14] MEDS: MEROPENEM 2 GM in SODIUM CHLORIDE 0.9% 100 ML IVPB SCH (08:15)
[2021-06-14 08:58] LABS: African American GFR (CKD) >90 (>60 ml/min/1.73 sqM); Blood Urea Nitrogen 25 mg/dL (9-20); Calcium 9.3 mg/dL (8.4-10.2); Chloride 80 mmol/L (98-107); Glucose 58 mg/dL (74-99); Non-African American GFR(CKD) >90 (>60 ml/min/1.73 sqM); Potassium 3.3 mmol/L (3.5-5.1); Sodium 135 mmol/L (137-145)
[2021-06-14 09:04] LABS: Anion Gap 7 mmol/L
[2021-06-14 09:08] LABS: Carbon Dioxide 48 mmol/L (22-30)
[2021-06-14 09:14] LABS: Basophils % (A) 0 %; Eosinophils % (A) 0 %; HCT 42.5 % (39.0-53.0); HGB 13.1 gm/dL (13.0-17.5); Hypochromasia Slight; Lymphocytes # (A) 0.6 k/uL (1.0-4.8); Lymphocytes % (A) 5 %; MCH 29.9 pg (25.0-35.0); MCHC 30.7 g/dL (31.0-37.0); MCV 97.4 fL (80.0-100.0); Mean Platelet Volume 7.6; Monocytes # (A) 0.4 k/uL (0-1.0); Monocytes % (A) 3 %; Neutrophils # (A) 10.3 k/uL (1.3-7.7); Neutrophils % (A) 91 %; Platelet Count 268 k/uL (150-450); RBC 4.36 m/uL (4.30-5.90); RDW 14.1 % (11.5-15.5); WBC 11.3 k/uL (3.8-10.6)
[2021-06-14] MEDS ORDERED: POTASSIUM CHLORIDE ER 20 MEQ TAB.ER PO STA (10:56)
[2021-06-14] MEDS ORDERED: Potassium Replacement Protocol 1 EACH MISC MISCELLANE PRN (10:56)
[2021-06-14 11:46] LABS: Glucose,Whole Blood 194 mg/dL (75-99)
--- NOTE | 2021-06-14 12:51 | P.PN ---
Subjective Progress Note Date: 06/14/21 Principal diagnosis: COPD exacerbation This is a 55-year-old male patient who is well-known to our service for his history of alpha-1 antitrypsin deficiency, severe COPD/emphysema with a baseline FEV1 of 19% of predicted and DLCO of 40% of predicted. Patient is on oxygen usually wears 4 L/m during the day, he is also on Trilogy ventilator at home on AVAPS setting. Other medical history includes 10-zoso-gapt smoking history, in addition he had smoked marijuana, hypertension, paroxysmal atrial fibrillation/atrial flutter patient is on oral anticoagulation, secondary pulmo nary hypertension, pericardial calcifications compatible with prior pericarditis and possibility of restrictive pericarditis, history of pseudomonal pulmonary infections most recently his sputum cultures showed resistant strain of pseudomonas aeruginosa. Patient had completed outpatient course of meropenem. He also had a recent hospitalization and was discharged home on 06/06/2021. His stated that he is in palliative care however he has been agreeable to hospitalization. He is being seen in consultation this morning, is lethargic, but arousable, he is currently on BiPAP support with pressures of 12 and 6 and FiO2 of 40%, he states he does not know why he ended up back in the hospital. He denies any fever or chills at home, his cough is not any worse than usual, he is able to produce some phlegm which is yellowish in color, no hemoptysis, no complaints of chest pain. From the ER documentation patient was brought in per EMS on 06/12/2021 for evaluation of difficulty breathing. Patient's was concerned about his increased confusion yesterday morning, he was overly sleepy and falling asleep during his breathing treatments. She did place him on Trilogy vent support, however it is not clear whether she just put him on his original AVAPS mode or place him on BiPAP support with original FiO2 of 50%, she called EMS. When EMS arrived his pulse ox was 55%, patient was placed on BiPAP support and brought to the hospital. Patient states there have not been any other changes from his most previous hospitalization. His chest x-ray shows diffuse pulmonary interstitial edema which increased slightly compared to his most recent examination, no pleural fluid. Patient after his last admission was sent home on maintenance dose of Lasix 40 mg daily in addition to Diamox 250 mg daily which he states he has been compliant with. We did not think he had an active pulmonary infection at that time, and he had recently completed his course of meropenem. PO2 of 66, pCO2 of 106, and patient's son 0.35, and this was done on BiPAP settings and FiO2 of 40%. He was tested again for COVID-19 and was found to be negative. His blood work showed a white blood cell count of 13.6, hemoglobin of 14.2, neutrophil count is 11.4 has increased from last admission, sodium is 136, potassium is 4.3, chloride is 82, CO2 is 48, BUN of 22, creatinine 0.5 to, AST is 29, ALT is 69, alk phos was 173, his troponin was 0.046, proBNP level was 437. On examination patient has increased swelling in his pedal and ankle edema, is currently in atrial flutter with a controlled rate, he is on Eliquis for chronic anticoagulation, he is on Cardizem CD 360 mg daily for rate control, his most recent echocardiogram from 05/13/2021 showed normal LV function with EF of greater than 55%, mild MR, mild TR, right ventricular systolic pressure less than 35 mmHg. Patient was started on nebulized bronchodilators, IV steroids, his Diamox has been restarted and he was given a dose of IV Lasix in the emergency department. Seems to be breathing comfortably, he is arousable to voice, answers simple questions. Vital signs have been stable while in the emergency department, he has had no fever or chills, blood pressure stable. The patient is seen today 06/14/2021 in follow-up on the selective care unit. He is currently resting fairly comfortably in bed. Still dyspneic with exertion, dyspneic with conversation. Currently off the BiPAP. It utilizes last night 12/6 and 40% FiO2. Currently on 5 L/m per nasal cannula. Given diuretics yesterday. Chest x-ray reveals chronic parenchymal changes with areas of acute or atypical infiltrate in the lower lungs particularly the right lower lobe. No significant change compared to previous. No cardiomegaly or pericardial effusion seen. Blood culture reveals no growth. He count 11.3. Hemoglobin 13.1. Lymphocytes 0.6. Sodium 135. Potassium 3.3. Bicarb 48. Creatinine 0.65. He remains on DuoNeb inhalations, Pulmicort and Perforomist inhalations, IV Solu-Medrol. Continues on Diamox. IV Lasix given this morning. Anticoagulated with Eliquis. Objective - Vital Signs Vital signs: Vital Signs Temp 97.5 F L 06/14/21 12:00 Pulse 90 06/14/21 12:06 Resp 22 06/14/21 12:00 BP 129/66 06/14/21 12:00 Pulse Ox 92 L 06/14/21 12:00 Intake & Output 06/13/21 06/14/21 06/14/21 18:59 06:59 18:59 Intake Total 180 240 Output Total 1000 280 Balance -820 -280 240 Weight 65 kg Intake: Oral 180 240 Output: Urine 1000 280 Other: Voiding Method Urinal Urinal - Exam GENERAL EXAM: A very pleasant, 55-year-old male patient, currently on 5 L nasal cannula alternating with BiPAP support with pressures of 12 and 6 and FiO2 of 40%, comfortable in no apparent distress. HEAD: Normocephalic/atraumatic. EYES: Normal reaction of pupils, equal size. Conjunctiva pink, sclera white. NOSE: Clear with pink turbinates. THROAT: No erythema or exudates. NECK: No masses, no JVD, no thyroid enlargement, no adenopathy. CHEST: No chest wall deformity. Symmetrical expansion. LUNGS: Equal air entry with very diminished breath sounds bilaterally CVS: Regular rate and rhythm, normal S1 and S2, no gallops, no murmurs, no rubs ABDOMEN: Soft, nontender. No hepatosplenomegaly, normal bowel sounds, no guarding or rigidity. EXTREMITIES: No clubbing, 1+ lower extremity edema, 1+ ankle and pedal edema, no cyanosis, 2+ pulses and upper and lower extremities. MUSCULOSKELETAL: Muscle strength and tone normal. SPINE: No scoliosis or deformity SKIN: No rashes CENTRAL NERVOUS SYSTEM:lethargic but arousable. No focal deficits, tone is normal in all 4 extremities. - Labs CBC & Chem 7: 06/14/21 07:34 06/14/21 07:34 Labs: Abnormal Lab Results - Last 24 Hours (Table) 06/13/21 06/14/21 06/14/21 Range/Units 20:08 06:07 06:24 WBC (3.8-10.6) k/uL MCHC (31.0-37.0) g/dL Neutrophils # (1.3-7.7) k/uL Lymphocytes # (1.0-4.8) k/uL Sodium (137-145) mmol/L Potassium (3.5-5.1) mmol/L Chloride (98-107) mmol/L Carbon Dioxide (22-30) mmol/L BUN (9-20) mg/dL Creatinine (0.66-1.25) mg/dL Glucose (74-99) mg/dL POC Glucose (mg/dL) 405 H 49 L 65 L (75-99) mg/dL 06/14/21 06/14/21 06/14/21 Range/Units 07:34 07:34 11:45 WBC 11.3 H (3.8-10.6) k/uL MCHC 30.7 L (31.0-37.0) g/dL Neutrophils # 10.3 H (1.3-7.7) k/uL Lymphocytes # 0.6 L (1.0-4.8) k/uL Sodium 135 L (137-145) mmol/L Potassium 3.3 L (3.5-5.1) mmol/L Chloride 80 L (98-107) mmol/L Carbon Dioxide 48 H* (22-30) mmol/L BUN 25 H (9-20) mg/dL Creatinine 0.65 L (0.66-1.25) mg/dL Glucose 58 L (74-99) mg/dL POC Glucose (mg/dL) 194 H (75-99) mg/dL Microbiology - Last 24 Hours (Table) 06/12/21 21:04 Blood Culture - Preliminary Blood No Growth after 24 hours Assessment and Plan Assessment: 1 Acute on chronic hypoxic respiratory failure related to acute exacerbation of COPD, with a possibility of mild fluid overload versus interstitial pneumonia, although his proBNP level was not elevated at 434, however has increased since last admission, and patient presented with signs of fluid overload including increased lower extremity edema, and interstitial edema on his chest x-ray. Patient does have history of restrictive pericarditis with evidence of pericardial calcifications noted on his CT chest previously. COVID-19 n PCR was negative 2 Recent hospitalization for acute exacerbation of COPD and fluid overload, no evidence of infection during that admission. Patient was discharged home on maintenance dose of oral Lasix 40 mg daily, in addition to Diamox 250 mg daily, discharged home on 06/06/2021 and 3 Recent right lower lobe pneumonia with sputum cultures positive for pseudomonas aeruginosa, patient had completed outpatient course of IV meropenem 4 Severe COPD with baseline FEV1 of 19% of predicted, stage IV COPD on home oxygen at 4 L, and Trilogy vent at AVAPS settings, patient had a chronic CO2 retainer, he was not a candidate for endobronchial [place] valve insertion related to chronic hypercapnic respiratory failure 5 History of smoking, 36 pack years, in remission for 1 year, 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 Land He did speak to the patient about palliative care or perhaps hospice He is willing to consider these options He is currently a full code but no mechanical ventilation We'll continue the current treatment plan Titrate the FiO2 as tolerated We will continue to follow I, the cosigning physician, performed a history & physical examination of the patient. Lungs sounds are very diminished throughout.. Maintaining good O2 saturations in the 90s on 5 L/m per nasal cannula. I discussed the assessment and plan of care with my nurse practitioner, Estephania Aldridge. I attest to the above note as dictated by her.
[2021-06-14 13:20] VITALS: BMI 18.8
[2021-06-14 16:25] LABS: Glucose,Whole Blood 232 mg/dL (75-99)
[2021-06-14] MEDS: TAMSULOSIN 0.4 MG CAP.ER.24H PO SCH (17:00)
[2021-06-14 19:57] LABS: Glucose,Whole Blood 273 mg/dL (75-99)
[2021-06-14] MEDS: MIRTAZAPINE 15 MG TAB PO SCH (20:59)
[2021-06-15 05:45] LABS: Glucose,Whole Blood 291 mg/dL (75-99)
[2021-06-15] MEDS: INSULIN ASPART (NovoLOG) 100 UNIT/ML VIAL SQ SCH ×3 (06:29→18:07)
[2021-06-15 07:36] LABS: Basophils % (A) 0 %; Eosinophils % (A) 0 %; HCT 43.2 % (39.0-53.0); HGB 13.2 gm/dL (13.0-17.5); Hypochromasia Slight; Lymphocytes # (A) 0.4 k/uL (1.0-4.8); Lymphocytes % (A) 4 %; MCH 29.5 pg (25.0-35.0); MCHC 30.6 g/dL (31.0-37.0); MCV 96.4 fL (80.0-100.0); Mean Platelet Volume 7.3; Monocytes # (A) 0.3 k/uL (0-1.0); Monocytes % (A) 2 %; Neutrophils # (A) 10.8 k/uL (1.3-7.7); Neutrophils % (A) 93 %; Platelet Count 296 k/uL (150-450); RBC 4.48 m/uL (4.30-5.90); RDW 14.1 % (11.5-15.5); WBC 11.6 k/uL (3.8-10.6)
[2021-06-15 07:50] LABS: African American GFR (CKD) >90 (>60 ml/min/1.73 sqM); Blood Urea Nitrogen 27 mg/dL (9-20); Calcium 9.2 mg/dL (8.4-10.2); Chloride 79 mmol/L (98-107); Glucose 263 mg/dL (74-99); Non-African American GFR(CKD) >90 (>60 ml/min/1.73 sqM); Potassium 3.1 mmol/L (3.5-5.1); Sodium 134 mmol/L (137-145)
[2021-06-15 07:57] LABS: Anion Gap 2 mmol/L
[2021-06-15 07:58] LABS: Carbon Dioxide 53 mmol/L (22-30)
[2021-06-15] MEDS: BUDESONIDE 1 MG/2 ML NEBU INHALATION SCH ×2 (08:07→19:16)
[2021-06-15] MEDS: FORMOTEROL FUMARATE 20 MCG/2 ML NEBU INHALATION SCH (08:07)
[2021-06-15] MEDS ORDERED: Potassium Replacement Protocol 1 EACH MISC MISCELLANE PRN (08:07)
[2021-06-15] MEDS: IPRATROPIUM-ALBUTEROL 3 ML NEB INHALATION SCH ×4 (08:08→19:16)
[2021-06-15] MEDS: methylPREDNISolone SOD SUCCI 40 MG/ML 1 ML VIAL IV SCH ×3 (08:15→23:05)
[2021-06-15] MEDS: MULTIVITAMINS, THERA 1 EACH TAB PO SCH (08:20)
[2021-06-15] MEDS: LORATADINE 10 MG TAB PO SCH (08:20)
[2021-06-15] MEDS: DILTIAZEM CD 180 MG CAP.ER.24H PO SCH (08:20)
[2021-06-15] MEDS: ASCORBIC ACID 500 MG TAB PO SCH (08:20)
[2021-06-15] MEDS: CHOLECALCIFEROL 25 MCG (1000 IU) TABLET PO SCH (08:20)
[2021-06-15] MEDS: FAMOTIDINE 20 MG TAB PO SCH (08:20)
[2021-06-15] MEDS: SERTRALINE 50 MG TAB PO SCH (08:21)
[2021-06-15] MEDS: FUROSEMIDE 40 MG TAB PO SCH (08:21)
[2021-06-15] MEDS: APIXABAN 5 MG TAB PO SCH ×2 (08:21→20:21)
[2021-06-15] MEDS: ACETAMINOPHEN TAB 325 MG TAB PO PRN (08:21)
[2021-06-15] MEDS: acetaZOLAMIDE 250 MG TAB PO SCH (08:21)
[2021-06-15] MEDS: POTASSIUM CHLORIDE ER 20 MEQ TAB.ER PO SCH ×5 (08:30→22:42)
[2021-06-15 12:00] LABS: Glucose,Whole Blood 421 mg/dL (75-99)
--- NOTE | 2021-06-15 12:10 | P.PN ---
Subjective Progress Note Date: 06/15/21 Principal diagnosis: COPD exacerbation This is a 55-year-old male patient who is well-known to our service for his history of alpha-1 antitrypsin deficiency, severe COPD/emphysema with a baseline FEV1 of 19% of predicted and DLCO of 40% of predicted. Patient is on oxygen usually wears 4 L/m during the day, he is also on Trilogy ventilator at home on AVAPS setting. Other medical history includes 14-sczz-myfm smoking history, in addition he had smoked marijuana, hypertension, paroxysmal atrial fibrillation/atrial flutter patient is on oral anticoagulation, secondary pulmo nary hypertension, pericardial calcifications compatible with prior pericarditis and possibility of restrictive pericarditis, history of pseudomonal pulmonary infections most recently his sputum cultures showed resistant strain of pseudomonas aeruginosa. Patient had completed outpatient course of meropenem. He also had a recent hospitalization and was discharged home on 06/06/2021. His stated that he is in palliative care however he has been agreeable to hospitalization. He is being seen in consultation this morning, is lethargic, but arousable, he is currently on BiPAP support with pressures of 12 and 6 and FiO2 of 40%, he states he does not know why he ended up back in the hospital. He denies any fever or chills at home, his cough is not any worse than usual, he is able to produce some phlegm which is yellowish in color, no hemoptysis, no complaints of chest pain. From the ER documentation patient was brought in per EMS on 06/12/2021 for evaluation of difficulty breathing. Patient's was concerned about his increased confusion yesterday morning, he was overly sleepy and falling asleep during his breathing treatments. She did place him on Trilogy vent support, however it is not clear whether she just put him on his original AVAPS mode or place him on BiPAP support with original FiO2 of 50%, she called EMS. When EMS arrived his pulse ox was 55%, patient was placed on BiPAP support and brought to the hospital. Patient states there have not been any other changes from his most previous hospitalization. His chest x-ray shows diffuse pulmonary interstitial edema which increased slightly compared to his most recent examination, no pleural fluid. Patient after his last admission was sent home on maintenance dose of Lasix 40 mg daily in addition to Diamox 250 mg daily which he states he has been compliant with. We did not think he had an active pulmonary infection at that time, and he had recently completed his course of meropenem. PO2 of 66, pCO2 of 106, and patient's son 0.35, and this was done on BiPAP settings and FiO2 of 40%. He was tested again for COVID-19 and was found to be negative. His blood work showed a white blood cell count of 13.6, hemoglobin of 14.2, neutrophil count is 11.4 has increased from last admission, sodium is 136, potassium is 4.3, chloride is 82, CO2 is 48, BUN of 22, creatinine 0.5 to, AST is 29, ALT is 69, alk phos was 173, his troponin was 0.046, proBNP level was 437. On examination patient has increased swelling in his pedal and ankle edema, is currently in atrial flutter with a controlled rate, he is on Eliquis for chronic anticoagulation, he is on Cardizem CD 360 mg daily for rate control, his most recent echocardiogram from 05/13/2021 showed normal LV function with EF of greater than 55%, mild MR, mild TR, right ventricular systolic pressure less than 35 mmHg. Patient was started on nebulized bronchodilators, IV steroids, his Diamox has been restarted and he was given a dose of IV Lasix in the emergency department. Seems to be breathing comfortably, he is arousable to voice, answers simple questions. Vital signs have been stable while in the emergency department, he has had no fever or chills, blood pressure stable. The patient is seen today 06/14/2021 in follow-up on the selective care unit. He is currently resting fairly comfortably in bed. Still dyspneic with exertion, dyspneic with conversation. Currently off the BiPAP. It utilizes last night 12/6 and 40% FiO2. Currently on 5 L/m per nasal cannula. Given diuretics yesterday. Chest x-ray reveals chronic parenchymal changes with areas of acute or atypical infiltrate in the lower lungs particularly the right lower lobe. No significant change compared to previous. No cardiomegaly or pericardial effusion seen. Blood culture reveals no growth. He count 11.3. Hemoglobin 13.1. Lymphocytes 0.6. Sodium 135. Potassium 3.3. Bicarb 48. Creatinine 0.65. He remains on DuoNeb inhalations, Pulmicort and Perforomist inhalations, IV Solu-Medrol. Continues on Diamox. IV Lasix given this morning. Anticoagulated with Eliquis. The patient is seen today 06/15/2021 in follow-up on the selective care unit. He is currently resting fairly comfortably in bed. Awake and alert in mild respiratory distress. Currently on BiPAP 12/6 and 40% FiO2. A culture reveals no growth. White count 11.6. Hemoglobin 13.2. Platelets 296. Lymphocytes 0.4. Sodium 134. Potassium 3.1. Bicarb 53. Creatinine 0.74. Glucose 263. He is continued on DuoNeb inhalations, Pulmicort and Perforomist inhalations, IV Solu-Medrol, oral diuretics, Diamox. Anticoagulated with Eliqis. Objective - Vital Signs Vital signs: Vital Signs Temp 98.3 F 06/15/21 12:00 Pulse 88 06/15/21 12:00 Resp 26 H 06/15/21 12:00 BP 132/82 06/15/21 12:00 Pulse Ox 90 L 06/15/21 12:00 Intake & Output 06/14/21 06/15/21 06/15/21 18:59 06:59 18:59 Intake Total 600 240 200 Output Total 2200 801 Balance -1600 -561 200 Weight 65 kg Intake: Oral 600 240 200 Output: Urine 2200 800 Stool 1 - Exam GENERAL EXAM: A very pleasant, 55-year-old male patient, currently on BiPAP support with pressures of 12 and 6 and FiO2 of 40%, fairly comfortable in no apparent distress. HEAD: Normocephalic/atraumatic. EYES: Normal reaction of pupils, equal size. Conjunctiva pink, sclera white. NOSE: Clear with pink turbinates. THROAT: No erythema or exudates. NECK: No masses, no JVD, no thyroid enlargement, no adenopathy. CHEST: No chest wall deformity. Symmetrical expansion. LUNGS: Equal air entry with very diminished breath sounds bilaterally CVS: Regular rate and rhythm, normal S1 and S2, no gallops, no murmurs, no rubs ABDOMEN: Soft, nontender. No hepatosplenomegaly, normal bowel sounds, no g uarding or rigidity. EXTREMITIES: No clubbing, 1+ lower extremity edema, 1+ ankle and pedal edema, no cyanosis, 2+ pulses and upper and lower extremities. MUSCULOSKELETAL: Muscle strength and tone normal. SPINE: No scoliosis or deformity SKIN: No rashes CENTRAL NERVOUS SYSTEM:lethargic but arousable. No focal deficits, tone is normal in all 4 extremities. - Labs CBC & Chem 7: 06/15/21 06:55 06/15/21 06:59 Labs: Abnormal Lab Results - Last 24 Hours (Table) 06/14/21 06/14/21 06/15/21 Range/Units 16:24 19:56 05:39 WBC (3.8-10.6) k/uL MCHC (31.0-37.0) g/dL Neutrophils # (1.3-7.7) k/uL Lymphocytes # (1.0-4.8) k/uL Sodium (137-145) mmol/L Potassium (3.5-5.1) mmol/L Chloride (98-107) mmol/L Carbon Dioxide (22-30) mmol/L BUN (9-20) mg/dL Glucose (74-99) mg/dL POC Glucose (mg/dL) 232 H 273 H 291 H (75-99) mg/dL 06/15/21 06/15/21 06/15/21 Range/Units 06:55 06:59 11:56 WBC 11.6 H (3.8-10.6) k/uL MCHC 30.6 L (31.0-37.0) g/dL Neutrophils # 10.8 H (1.3-7.7) k/uL Lymphocytes # 0.4 L (1.0-4.8) k/uL Sodium 134 L (137-145) mmol/L Potassium 3.1 L (3.5-5.1) mmol/L Chloride 79 L (98-107) mmol/L Carbon Dioxide 53 H* (22-30) mmol/L BUN 27 H (9-20) mg/dL Glucose 263 H (74-99) mg/dL POC Glucose (mg/dL) 421 H (75-99) mg/dL Microbiology - Last 24 Hours (Table) 06/12/21 21:04 Blood Culture - Preliminary Blood No Growth after 48 hours Assessment and Plan Assessment: 1 Acute on chronic hypoxic respiratory failure related to acute exacerbation of COPD, with a possibility of mild fluid overload versus interstitial pneumonia, although his proBNP level was not elevated at 434, however has increased since last admission, and patient presented with signs of fluid overload including increased lower extremity edema, and interstitial edema on his chest x-ray. Patient does have history of restrictive pericarditis with evidence of pericardial calcifications noted on his CT chest previously. COVID-19 n PCR was negative 2 Recent hospitalization for acute exacerbation of COPD and fluid overload, no evidence of infection during that admission. Patient was discharged home on m aintenance dose of oral Lasix 40 mg daily, in addition to Diamox 250 mg daily, discharged home on 06/06/2021 and 3 Recent right lower lobe pneumonia with sputum cultures positive for pseudomonas aeruginosa, patient had completed outpatient course of IV meropenem 4 Severe COPD with baseline FEV1 of 19% of predicted, stage IV COPD on home oxygen at 4 L, and Trilogy vent at AVAPS settings, patient had a chronic CO2 retainer, he was not a candidate for endobronchial [place] valve insertion relate d to chronic hypercapnic respiratory failure 5 History of smoking, 36 pack years, in remission for 1 year, 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 Land The plan is to return home to palliative care with increased frequency of visits Could convert IV Solu-Medrol to oral prednisone prior to discharge He is currently a full code but no mechanical ventilation Titrate the FiO2 as tolerated We will continue to follow I, the cosigning physician, performed a history & physical examination of the patient. Lungs sounds are very diminished throughout. Maintaining good O2 saturations in the 90s on BiPAP 12/6 at 40% FiO2 alternating with 5 L/m per nasal cannula. I discussed the assessment and plan of care with my nurse practitioner, Estephania Aldridge. I attest to the above note as dictated by her.
[2021-06-15] MEDS ORDERED: INSULIN DETEMIR (LEVEMIR) 100 UNIT/ML SYR SQ ONE (15:00)
[2021-06-15 16:49] LABS: Glucose,Whole Blood 418 mg/dL (75-99)
[2021-06-15] MEDS ORDERED: INSULIN REGULAR 100 UNIT in SODIUM CHLORIDE 0.9% 100 ML IV SCH (17:30)
[2021-06-15] MEDS ORDERED: INSULIN REGULAR BOLUS (FROM DRIP BAG) IV ONE (18:00)
[2021-06-15] MEDS: TAMSULOSIN 0.4 MG CAP.ER.24H PO SCH (18:07)
[2021-06-15 18:18] LABS: Glucose,Whole Blood 415 mg/dL (75-99)
[2021-06-15 18:46] LABS: Glucose,Whole Blood 364 mg/dL (75-99)
[2021-06-15 19:22] LABS: Magnesium 1.8 mg/dL (1.6-2.3)
[2021-06-15 19:24] LABS: Glucose,Whole Blood 262 mg/dL (75-99)
[2021-06-15 19:28] LABS: Potassium 2.7 mmol/L (3.5-5.1)
[2021-06-15 20:14] LABS: Glucose,Whole Blood 179 mg/dL (75-99)
[2021-06-15] MEDS: MIRTAZAPINE 15 MG TAB PO SCH (20:21)
[2021-06-15 22:22] LABS: Glucose,Whole Blood 44 mg/dL (75-99)
[2021-06-15 22:44] LABS: Glucose,Whole Blood 82 mg/dL (75-99)
[2021-06-16 00:02] LABS: Glucose,Whole Blood 111 mg/dL (75-99)
[2021-06-16] MEDS: POTASSIUM CHLORIDE ER 20 MEQ TAB.ER PO SCH ×2 (01:51→03:36)
[2021-06-16 02:07] LABS: Glucose,Whole Blood 73 mg/dL (75-99)
[2021-06-16 03:49] LABS: Glucose,Whole Blood 68 mg/dL (75-99)
[2021-06-16 05:59] LABS: Glucose,Whole Blood 99 mg/dL (75-99)
[2021-06-16] MEDS: INSULIN ASPART (NovoLOG) 100 UNIT/ML VIAL SQ SCH ×5 (06:06→21:18)
[2021-06-16 06:40] LABS: Basophils % (A) 0 %; Eosinophils % (A) 0 %; HCT 36.5 % (39.0-53.0); HGB 11.9 gm/dL (13.0-17.5); Lymphocytes # (A) 0.6 k/uL (1.0-4.8); Lymphocytes % (A) 4 %; MCH 30.4 pg (25.0-35.0); MCHC 32.6 g/dL (31.0-37.0); MCV 93.2 fL (80.0-100.0); Mean Platelet Volume 7.4; Monocytes # (A) 0.5 k/uL (0-1.0); Monocytes % (A) 3 %; Neutrophils # (A) 14.8 k/uL (1.3-7.7); Neutrophils % (A) 92 %; Platelet Count 286 k/uL (150-450); RBC 3.91 m/uL (4.30-5.90); RDW 14.8 % (11.5-15.5)
[2021-06-16] MEDS ORDERED: INSULIN DETEMIR (LEVEMIR) 100 UNIT/ML SYR SQ SCH (07:00)
[2021-06-16 07:09] LABS: African American GFR (CKD) >90 (>60 ml/min/1.73 sqM); Blood Urea Nitrogen 24 mg/dL (9-20); Chloride 86 mmol/L (98-107); Glucose 99 mg/dL (74-99); Magnesium 1.9 mg/dL (1.6-2.3); Non-African American GFR(CKD) >90 (>60 ml/min/1.73 sqM); Potassium 3.7 mmol/L (3.5-5.1); Sodium 135 mmol/L (137-145)
[2021-06-16 07:17] LABS: Anion Gap 1 mmol/L
[2021-06-16 07:29] LABS: Carbon Dioxide 48 mmol/L (22-30)
[2021-06-16 08:08] LABS: Glucose,Whole Blood 105 mg/dL (75-99)
[2021-06-16] MEDS ORDERED: POTASSIUM CHLORIDE ER 20 MEQ TAB.ER PO STA (09:08)
[2021-06-16] MEDS: IPRATROPIUM-ALBUTEROL 3 ML NEB INHALATION SCH ×4 (09:16→19:53)
[2021-06-16] MEDS: BUDESONIDE 1 MG/2 ML NEBU INHALATION SCH ×2 (09:16→19:53)
[2021-06-16] MEDS: methylPREDNISolone SOD SUCCI 40 MG/ML 1 ML VIAL IV SCH (09:17)
[2021-06-16] MEDS: ASCORBIC ACID 500 MG TAB PO SCH (09:17)
[2021-06-16] MEDS: MULTIVITAMINS, THERA 1 EACH TAB PO SCH (09:17)
[2021-06-16] MEDS: DILTIAZEM CD 180 MG CAP.ER.24H PO SCH (09:17)
[2021-06-16] MEDS: acetaZOLAMIDE 250 MG TAB PO SCH (09:17)
[2021-06-16] MEDS: ACETAMINOPHEN TAB 325 MG TAB PO PRN ×2 (09:18→19:36)
[2021-06-16] MEDS: SERTRALINE 50 MG TAB PO SCH (09:18)
[2021-06-16] MEDS: LORATADINE 10 MG TAB PO SCH (09:18)
[2021-06-16] MEDS: CHOLECALCIFEROL 25 MCG (1000 IU) TABLET PO SCH (09:18)
[2021-06-16] MEDS: FAMOTIDINE 20 MG TAB PO SCH (09:18)
[2021-06-16] MEDS: FUROSEMIDE 40 MG TAB PO SCH (09:18)
[2021-06-16] MEDS: APIXABAN 5 MG TAB PO SCH ×2 (09:18→20:27)
[2021-06-16 09:29] LABS: Glucose,Whole Blood 236 mg/dL (75-99)
[2021-06-16 10:27] LABS: Glucose,Whole Blood 275 mg/dL (75-99)
--- NOTE | 2021-06-16 11:23 | P.PN ---
Subjective Progress Note Date: 06/16/21 Principal diagnosis: COPD exacerbation This is a 55-year-old male patient who is well-known to our service for his history of alpha-1 antitrypsin deficiency, severe COPD/emphysema with a baseline FEV1 of 19% of predicted and DLCO of 40% of predicted. Patient is on oxygen usually wears 4 L/m during the day, he is also on Trilogy ventilator at home on AVAPS setting. Other medical history includes [id number] smoking history, in addition he had smoked marijuana, hypertension, paroxysmal atrial fibrillation/atrial flutter patient is on oral anticoagulation, secondary pulmo nary hypertension, pericardial calcifications compatible with prior pericarditis and possibility of restrictive pericarditis, history of pseudomonal pulmonary infections most recently his sputum cultures showed resistant strain of pseudomonas aeruginosa. Patient had completed outpatient course of meropenem. He also had a recent hospitalization and was discharged home on 06/06/2021. His stated that he is in palliative care however he has been agreeable to hospitalization. He is being seen in consultation this morning, is lethargic, but arousable, he is currently on BiPAP support with pressures of 12 and 6 and FiO2 of 40%, he states he does not know why he ended up back in the hospital. He denies any fever or chills at home, his cough is not any worse than usual, he is able to produce some phlegm which is yellowish in color, no hemoptysis, no complaints of chest pain. From the ER documentation patient was brought in per EMS on 06/12/2021 for evaluation of difficulty breathing. Patient's was concerned about his increased confusion yesterday morning, he was overly sleepy and falling asleep during his breathing treatments. She did place him on Trilogy vent support, however it is not clear whether she just put him on his original AVAPS mode or place him on BiPAP support with original FiO2 of 50%, she called EMS. When EMS arrived his pulse ox was 55%, patient was placed on BiPAP support and brought to the hospital. Patient states there have not been any other changes from his most previous hospitalization. His chest x-ray shows diffuse pulmonary interstitial edema which increased slightly compared to his most recent examination, no pleural fluid. Patient after his last admission was sent home on maintenance dose of Lasix 40 mg daily in addition to Diamox 250 mg daily which he states he has been compliant with. We did not think he had an active pulmonary infection at that time, and he had recently completed his course of meropenem. PO2 of 66, pCO2 of 106, and patient's son 0.35, and this was done on BiPAP settings and FiO2 of 40%. He was tested again for COVID-19 and was found to be negative. His blood work showed a white blood cell count of 13.6, hemoglobin of 14.2, neutrophil count is 11.4 has increased from last admission, sodium is 136, potassium is 4.3, chloride is 82, CO2 is 48, BUN of 22, creatinine 0.5 to, AST is 29, ALT is 69, alk phos was 173, his troponin was 0.046, proBNP level was 437. On examination patient has increased swelling in his pedal and ankle edema, is currently in atrial flutter with a controlled rate, he is on Eliquis for chronic anticoagulation, he is on Cardizem CD 360 mg daily for rate control, his most recent echocardiogram from 05/13/2021 showed normal LV function with EF of greater than 55%, mild MR, mild TR, right ventricular systolic pressure less than 35 mmHg. Patient was started on nebulized bronchodilators, IV steroids, his Diamox has been restarted and he was given a dose of IV Lasix in the emergency department. Seems to be breathing comfortably, he is arousable to voice, answers simple questions. Vital signs have been stable while in the emergency department, he has had no fever or chills, blood pressure stable. The patient is seen today 06/14/2021 in follow-up on the selective care unit. He is currently resting fairly comfortably in bed. Still dyspneic with exertion, dyspneic with conversation. Currently off the BiPAP. It utilizes last night 12/6 and 40% FiO2. Currently on 5 L/m per nasal cannula. Given diuretics yesterday. Chest x-ray reveals chronic parenchymal changes with areas of acute or atypical infiltrate in the lower lungs particularly the right lower lobe. No significant change compared to previous. No cardiomegaly or pericardial effusion seen. Blood culture reveals no growth. He count 11.3. Hemoglobin 13.1. Lymphocytes 0.6. Sodium 135. Potassium 3.3. Bicarb 48. Creatinine 0.65. He remains on DuoNeb inhalations, Pulmicort and Perforomist inhalations, IV Solu-Medrol. Continues on Diamox. IV Lasix given this morning. Anticoagulated with Eliquis. The patient is seen today 06/15/2021 in follow-up on the selective care unit. He is currently resting fairly comfortably in bed. Awake and alert in mild respiratory distress. Currently on BiPAP 12/6 and 40% FiO2. A culture reveals no growth. White count 11.6. Hemoglobin 13.2. Platelets 296. Lymphocytes 0.4. Sodium 134. Potassium 3.1. Bicarb 53. Creatinine 0.74. Glucose 263. He is continued on DuoNeb inhalations, Pulmicort and Perforomist inhalations, IV Solu-Medrol, oral diuretics, Diamox. Anticoagulated with Eliqis. The patient is seen today 06/16/2021 in follow-up on the selective care unit. He is currently resting in bed. He is awake, alert. No acute distress. Currently on the BiPAP at 12/6 and 40% FiO2. He states he was off for breakfast and is doing or time off the BiPAP. Otherwise, he is on 5 L/m per nasal cannula to maintain O2 saturation in the low 90s. He's been afebrile. Hemodynamically stable. He is requiring an insulin drip currently at 4 units per hour. Blood glucose 236. White count 16.0. Hemoglobin 11.9. Sodium 135. Potassium 3.7. Bicarb 48. Creatinine 0.55. He remains on DuoNeb inhalations, Pulmicort inhalations, IV Solu-Medrol at 40 mg IV every 8 hours. Oral diuretics. Anticoagulated with Eliquis. Objective - Vital Signs Vital signs: Vital Signs Temp 98.2 F 06/16/21 08:04 Pulse 88 06/16/21 09:43 Resp 19 06/16/21 08:04 BP 123/74 06/16/21 08:04 Pulse Ox 92 L 06/16/21 08:04 Intake & Output 06/15/21 06/16/21 06/16/21 18:59 06:59 18:59 Intake Total 215.15 868.928 490 Output Total 700 950 Balance -484.85 -81.072 490 Intake: Intake, IV Titration 15.15 28.928 0 Amount Insulin Regular 100 unit 15.15 28.928 0 In Sodium Chloride 0.9% 100 ml @ Per Protocol IV .Q0M [facility] Rx#:[id number] Oral 200 840 490 Output: Urine 700 950 Other: Voiding Method Urinal # Bowel Movements 1 - Exam GENERAL EXAM: A very pleasant, 55-year-old male patient, currently on BiPAP support with pressures of 12 and 6 and FiO2 of 40%, fairly comfortable in no apparent distress. HEAD: Normocephalic/atraumatic. EYES: Normal reaction of pupils, equal size. Conjunctiva pink, sclera white. NOSE: Clear with pink turbinates. THROAT: No erythema or exudates. NECK: No masses, no JVD, no thyroid enlargement, no adenopathy. CHEST: No chest wall deformity. Symmetrical expansion. LUNGS: Equal air entry with very diminished breath sounds bilaterally CVS: Regular rate and rhythm, normal S1 and S2, no gallops, no murmurs, no rubs ABDOMEN: Soft, nontender. No hepatosplenomegaly, normal bowel sounds, no guarding or rigidity. EXTREMITIES: No clubbing, 1+ lower extremity edema, 1+ ankle and pedal edema, no cyanosis, 2+ pulses and upper and lower extremities. MUSCULOSKELETAL: Muscle strength and tone normal. SPINE: No scoliosis or deformity SKIN: No rashes CENTRAL NERVOUS SYSTEM:lethargic but arousable. No focal deficits, tone is normal in all 4 extremities. - Labs CBC & Chem 7: 06/16/21 05:38 06/16/21 05:38 Labs: Abnormal Lab Results - Last 24 Hours (Table) 06/15/21 06/15/21 06/15/21 Range/Units 11:56 16:40 18:17 WBC (3.8-10.6) k/uL RBC (4.30-5.90) m/uL Hgb (13.0-17.5) gm/dL Hct (39.0-53.0) % Neutrophils # (1.3-7.7) k/uL Lymphocytes # (1.0-4.8) k/uL Sodium (137-145) mmol/L Potassium (3.5-5.1) mmol/L Chloride (98-107) mmol/L Carbon Dioxide (22-30) mmol/L BUN (9-20) mg/dL Creatinine (0.66-1.25) mg/dL POC Glucose (mg/dL) 421 H 418 H 415 H (75-99) mg/dL 06/15/21 06/15/21 06/15/21 Range/Units 18:44 18:45 19:22 WBC (3.8-10.6) k/uL RBC (4.30-5.90) m/uL Hgb (13.0-17.5) gm/dL Hct (39.0-53.0) % Neutrophils # (1.3-7.7) k/uL Lymphocytes # (1.0-4.8) k/uL Sodium (137-145) mmol/L Potassium 2.7 L* (3.5-5.1) mmol/L Chloride (98-107) mmol/L Carbon Dioxide (22-30) mmol/L BUN (9-20) mg/dL Creatinine (0.66-1.25) mg/dL POC Glucose (mg/dL) 364 H 262 H (75-99) mg/dL 06/15/21 06/15/21 06/16/21 Range/Units 20:03 22:10 00:00 WBC (3.8-10.6) k/uL RBC (4.30-5.90) m/uL Hgb (13.0-17.5) gm/dL Hct (39.0-53.0) % Neutrophils # (1.3-7.7) k/uL Lymphocytes # (1.0-4.8) k/uL Sodium (137-145) mmol/L Potassium (3.5-5.1) mmol/L Chloride (98-107) mmol/L Carbon Dioxide (22-30) mmol/L BUN (9-20) mg/dL Creatinine (0.66-1.25) mg/dL POC Glucose (mg/dL) 179 H 44 L 111 H (75-99) mg/dL 06/16/21 06/16/21 06/16/21 Range/Units 00:34 01:53 03:35 WBC (3.8-10.6) k/uL RBC (4.30-5.90) m/uL Hgb (13.0-17.5) gm/dL Hct (39.0-53.0) % Neutrophils # (1.3-7.7) k/uL Lymphocytes # (1.0-4.8) k/uL Sodium (137-145) mmol/L Potassium 3.1 L (3.5-5.1) mmol/L Chloride (98-107) mmol/L Carbon Dioxide (22-30) mmol/L BUN (9-20) mg/dL Creatinine (0.66-1.25) mg/dL POC Glucose (mg/dL) 73 L 68 L (75-99) mg/dL 06/16/21 06/16/21 06/16/21 Range/Units 05:38 05:38 08:07 WBC 16.0 H (3.8-10.6) k/uL RBC 3.91 L (4.30-5.90) m/uL Hgb 11.9 L (13.0-17.5) gm/dL Hct 36.5 L (39.0-53.0) % Neutrophils # 14.8 H (1.3-7.7) k/uL Lymphocytes # 0.6 L (1.0-4.8) k/uL Sodium 135 L (137-145) mmol/L Potassium (3.5-5.1) mmol/L Chloride 86 L (98-107) mmol/L Carbon Dioxide 48 H* (22-30) mmol/L BUN 24 H (9-20) mg/dL Creatinine 0.55 L (0.66-1.25) mg/dL POC Glucose (mg/dL) 105 H (75-99) mg/dL 06/16/21 06/16/21 Range/Units 09:28 10:25 WBC (3.8-10.6) k/uL RBC (4.30-5.90) m/uL Hgb (13.0-17.5) gm/dL Hct (39.0-53.0) % Neutrophils # (1.3-7.7) k/uL Lymphocytes # (1.0-4.8) k/uL Sodium (137-145) mmol/L Potassium (3.5-5.1) mmol/L Chloride (98-107) mmol/L Carbon Dioxide (22-30) mmol/L BUN (9-20) mg/dL Creatinine (0.66-1.25) mg/dL POC Glucose (mg/dL) 236 H 275 H (75-99) mg/dL Microbiology - Last 24 Hours (Table) 06/12/21 21:04 Blood Culture - Preliminary Blood No Growth after 72 hours Assessment and Plan Assessment: 1 Acute on chronic hypoxic respiratory failure related to acute exacerbation of COPD, with a possibility of mild fluid overload versus interstitial pneumonia, although his proBNP level was not elevated at 434, however has increased since last admission, and patient presented with signs of fluid overload including increased lower extremity edema, and interstitial edema on his chest x-ray. Patient does have history of restrictive pericarditis with evidence of pericardial calcifications noted on his CT chest previously. COVID-19 n PCR was negative 2 Recent hospitalization for acute exacerbation of COPD and fluid overload, no evidence of infection during that admission. Patient was discharged home on maintenance dose of oral Lasix 40 mg daily, in addition to Diamox 250 mg daily, discharged home on 06/06/2021 and 3 Recent right lower lobe pneumonia with sputum cultures positive for pseudomonas aeruginosa, patient had completed outpatient course of IV meropenem 4 Severe COPD with baseline FEV1 of 19% of predicted, stage IV COPD on home oxygen at 4 L, and Trilogy vent at AVAPS settings, patient had a chronic CO2 retainer, he was not a candidate for endobronchial [place] valve insertion related to chronic hypercapnic respiratory failure 5 History of smoking, 36 pack years, in remission for 1 year, 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 Land We will discontinue IV Solu Medrol, switched to prednisone Currently on insulin drip DO NOT INTUBATE CODE STATUS, palliative care at home Titrate the FiO2 as tolerated I, the cosigning physician, performed a history & physical examination of the patient. Lungs sounds are very diminished throughout. Maintaining good O2 saturations in the 90s on BiPAP 12/6 at 40% FiO2 alternating with 5 L/m per nasal cannula. I discussed the assessment and plan of care with my nurse practitioner, Estephania Aldridge. I attest to the above note as dictated by her.
[2021-06-16 11:37] LABS: Glucose,Whole Blood 254 mg/dL (75-99)
[2021-06-16 13:27] LABS: Glucose,Whole Blood 294 mg/dL (75-99)
[2021-06-16] MEDS: ALPRAZolam 0.5 MG TAB PO PRN ×2 (13:40→23:01)
[2021-06-16 16:29] LABS: Glucose,Whole Blood 126 mg/dL (75-99)
[2021-06-16] MEDS: TAMSULOSIN 0.4 MG CAP.ER.24H PO SCH (17:34)
[2021-06-16 17:37] LABS: Glucose,Whole Blood 220 mg/dL (75-99)
[2021-06-16] MEDS: MIRTAZAPINE 15 MG TAB PO SCH (20:27)
[2021-06-16 20:54] LABS: Glucose,Whole Blood 187 mg/dL (75-99)
[2021-06-17 02:41] VITALS: RESP 20
[2021-06-17 07:23] LABS: Glucose,Whole Blood 140 mg/dL (75-99)
[2021-06-17] MEDS: IPRATROPIUM-ALBUTEROL 3 ML NEB INHALATION SCH ×3 (07:48→15:41)
[2021-06-17] MEDS: BUDESONIDE 1 MG/2 ML NEBU INHALATION SCH (07:48)
[2021-06-17 08:59] LABS: Glucose,Whole Blood 181 mg/dL (75-99)
[2021-06-17] MEDS ORDERED: predniSONE 20 MG TAB PO SCH (09:00)
[2021-06-17] MEDS: ASCORBIC ACID 500 MG TAB PO SCH (09:03)
[2021-06-17] MEDS: FAMOTIDINE 20 MG TAB PO SCH (09:04)
[2021-06-17] MEDS: FUROSEMIDE 40 MG TAB PO SCH (09:04)
[2021-06-17] MEDS: MULTIVITAMINS, THERA 1 EACH TAB PO SCH (09:04)
[2021-06-17] MEDS: acetaZOLAMIDE 250 MG TAB PO SCH (09:04)
[2021-06-17] MEDS: CHOLECALCIFEROL 25 MCG (1000 IU) TABLET PO SCH (09:04)
[2021-06-17] MEDS: DILTIAZEM CD 180 MG CAP.ER.24H PO SCH (09:04)
[2021-06-17] MEDS: SERTRALINE 50 MG TAB PO SCH (09:04)
[2021-06-17] MEDS: APIXABAN 5 MG TAB PO SCH (09:04)
[2021-06-17] MEDS: INSULIN ASPART (NovoLOG) 100 UNIT/ML VIAL SQ SCH ×4 (09:04→12:16)
[2021-06-17] MEDS: LORATADINE 10 MG TAB PO SCH (09:04)
[2021-06-17 09:08] VITALS: TEMP 98.5
[2021-06-17] MEDS: ACETAMINOPHEN TAB 325 MG TAB PO PRN (09:38)
--- NOTE | 2021-06-17 10:51 | P.PN ---
Subjective Progress Note Date: 06/14/21 Principal diagnosis: Acute on chronic hypoxic and hypercapnic respiratory failure secondary to severe COPD exacerbation and diffuse interstitial edema. Patient is a 55-year-old male with a known history of COPD/ emphysema, paroxysmal atrial fibrillation on anticoagulation with Eliquis, also 1 antitrypsin deficiency, previous history of smoking presents to ER with complaints of worsening shortness of breath. Patient is on 4 L oxygen by nasal cannula. Patient is currently taking prednisone tapering course prior to admission. Patient was brought to the hospital by his and also states that he was acting confused since morning. He is becoming more sleepy and falling asleep during his breathing treatments. She did place him on his home BiPAP and oxygen saturations were down to 50%. She called ambulance and depression was brought to the hospital. Patient follows with Dr. Mendoza as an outpatient. Patient denied any fever or chills. Cough without sputum production. No complaints of chest pain. Denied any recent illnesses. No nausea vomiting abdominal pain or diarrhea. No dysuria or hematuria. Chest x-ray showed diffuse pulmonary interstitial edema is increased slightly compared to last exam. No pleural fluid seen to suggest heart failure. Next and EKG showed normal sinus rhythm. ABG showed pH of 7.35 pCO2 106 pO2 66 Laboratory data showed the visit that 0.6 hemoglobin 14.2 and platelets 335 Sodium 136 potassium 4.3 chloride 82 bicarb is 48 BUN 22 and creatinine 0.52 Troponin 0.046, 0.039 and 0.030 ProBNP 437 COVID-19 not detected 06/14/2021 Patient is currently in the telemetry unit. Lying in the bed. Awake alert oriented x3. Requiring BiPAP on and off. Currently on oxygen via nasal cannula. Chest x-ray showed chronic parenchymal changes with areas of acute atypical infiltrate in the lower lung. No significant change compared to previous. Laboratory showed WBC 11.3 hemoglobin 13.1, platelets 268 Sodium 135 potassium 3.3 chloride 88 bicarb is 48 BUN 25 creatinine 0.64 and blood sugar is 58 Patient is being continued on IV Solu-Medrol Pulmicort Perforomist and duo nebs. Continue on anticoagulation with Eliquis. Pulmonary is on board. Her current medications reviewed. Objective - Vital Signs Vital signs: Vital Signs Temp 97.7 F 06/14/21 08:00 Pulse 90 06/14/21 08:18 Resp 20 06/14/21 08:00 BP 119/70 06/14/21 08:00 Pulse Ox 94 L 06/14/21 08:01 Intake & Output 06/13/21 06/14/21 06/14/21 18:59 06:59 18:59 Intake Total 180 240 Output Total 1000 280 Balance -820 -280 240 Weight 65 kg Intake: Oral 180 240 Output: Urine 1000 280 Other: Voiding Method Urinal Urinal - Exam PHYSICAL EXAMINATION: Patient is lying in the bed comfortably, no acute distress, awake alert and oriented.. HEENT: Normocephalic. Neck is supple. Pupils reactive. Nostrils clear. Oral cavity is moist. Neck reveals no JVD, carotid bruits, or thyromegaly. CHEST EXAMINATION: Trachea is central. Symmetrical expansion. Bilateral diminished sounds and expiratory wheeze. Nonlabored breathing. CARDIAC: Normal S1, S2 with no gallops. No murmurs ABDOMEN: Soft. Bowel sounds normal. No organomegaly. No abdominal bruits. Extremities: reveal no edema. No clubbing or cyanosis Neurologically awake, alert, oriented x3 with well-coordinated movements. No focal deficits noted Skin: No rash or skin lesions. Psychiatric: Coperative. Nonsuicidal Musculoskeletal: No joint swelling or deformity. Normal range of motion. - Labs CBC & Chem 7: 06/16/21 05:38 06/16/21 15:33 Labs: Abnormal Lab Results - Last 24 Hours (Table) 06/13/21 06/13/21 06/14/21 Range/Units 06:26 20:08 06:07 WBC (3.8-10.6) k/uL MCHC (31.0-37.0) g/dL Neutrophils # (1.3-7.7) k/uL Lymphocytes # (1.0-4.8) k/uL Sodium (137-145) mmol/L Potassium (3.5-5.1) mmol/L Chloride (98-107) mmol/L Carbon Dioxide (22-30) mmol/L BUN (9-20) mg/dL Creatinine (0.66-1.25) mg/dL Glucose (74-99) mg/dL POC Glucose (mg/dL) 405 H 49 L (75-99) mg/dL Procalcitonin 0.11 H (0.02-0.09) ng/mL 06/14/21 06/14/21 06/14/21 Range/Units 06:24 07:34 07:34 WBC 11.3 H (3.8-10.6) k/uL MCHC 30.7 L (31.0-37.0) g/dL Neutrophils # 10.3 H (1.3-7.7) k/uL Lymphocytes # 0.6 L (1.0-4.8) k/uL Sodium 135 L (137-145) mmol/L Potassium 3.3 L (3.5-5.1) mmol/L Chloride 80 L (98-107) mmol/L Carbon Dioxide 48 H* (22-30) mmol/L BUN 25 H (9-20) mg/dL Creatinine 0.65 L (0.66-1.25) mg/dL Glucose 58 L (74-99) mg/dL POC Glucose (mg/dL) 65 L (75-99) mg/dL Procalcitonin (0.02-0.09) ng/mL Microbiology - Last 24 Hours (Table) 06/12/21 21:04 Blood Culture - Preliminary Blood No Growth after 24 hours Assessment and Plan Assessment: Acute on chronic hypoxic and hypercapnic respiratory failure secondary to severe COPD exacerbation and diffuse interstitial edema. Recent admission with acute COPD exacerbation and right lower lobe pneumonia with sputum cultures positive for Pseudomonas, completed antibiotic course with IV meropenem. Chronic hypoxic respiratory failure on 4 L oxygen with another cannula Severe COPD with baseline FEV1 of 90% of predicted. Paroxysmal atrial fibrillation on anticoagulation with Eliquis and rate controlled with Cardizem. Brandon 1 antitrypsin deficiency History of smoking Hypertension Plan: Patient is currently on BiPAP. Continue with oxygen supplementation, DuoNeb's and methylprednisolone 40 mg every 8 hourly.. Added Pulmicort and Perforomist. Lasix changed to IV 40 mg daily. Continue with acetazolamide Follow-up sputum cultures and started on meropenem due to previous Pseudomonas in the sputum cultures. Continue with home medications including Eliquis and Cardizem. Prognosis is guarded with poor functional status and comorbid conditions. Pulmonary is on board. . Time with Patient: Greater than 30
--- NOTE | 2021-06-17 10:53 | P.PN ---
Subjective Progress Note Date: 06/15/21 Principal diagnosis: Acute on chronic hypoxic and hypercapnic respiratory failure secondary to severe COPD exacerbation and diffuse interstitial edema. Patient is a 55-year-old male with a known history of COPD/ emphysema, paroxysmal atrial fibrillation on anticoagulation with Eliquis, also 1 antitrypsin deficiency, previous history of smoking presents to ER with complaints of worsening shortness of breath. Patient is on 4 L oxygen by nasal cannula. Patient is currently taking prednisone tapering course prior to admission. Patient was brought to the hospital by his and also states that he was acting confused since morning. He is becoming more sleepy and falling asleep during his breathing treatments. She did place him on his home BiPAP and oxygen saturations were down to 50%. She called ambulance and depression was brought to the hospital. Patient follows with Dr. Mendoza as an outpatient. Patient denied any fever or chills. Cough without sputum production. No complaints of chest pain. Denied any recent illnesses. No nausea vomiting abdominal pain or diarrhea. No dysuria or hematuria. Chest x-ray showed diffuse pulmonary interstitial edema is increased slightly compared to last exam. No pleural fluid seen to suggest heart failure. Next and EKG showed normal sinus rhythm. ABG showed pH of 7.35 pCO2 106 pO2 66 Laboratory data showed the visit that 0.6 hemoglobin 14.2 and platelets 335 Sodium 136 potassium 4.3 chloride 82 bicarb is 48 BUN 22 and creatinine 0.52 Troponin 0.046, 0.039 and 0.030 ProBNP 437 COVID-19 not detected 06/14/2021 Patient is currently in the telemetry unit. Lying in the bed. Awake alert oriented x3. Requiring BiPAP on and off. Currently on oxygen via nasal cannula. Chest x-ray showed chronic parenchymal changes with areas of acute atypical infiltrate in the lower lung. No significant change compared to previous. Laboratory showed WBC 11.3 hemoglobin 13.1, platelets 268 Sodium 135 potassium 3.3 chloride 88 bicarb is 48 BUN 25 creatinine 0.64 and blood sugar is 58 Patient is being continued on IV Solu-Medrol Pulmicort Perforomist and duo nebs. Continue on anticoagulation with Eliquis. Pulmonary is on board. 06/15/2021 Patient currently resting in the bed comfortably. No complaints of chest pain or worsening shortness of breath. On BiPAP 12 x 6 and FiO2 40%. Patient is maintained on IV Lasix changed to by mouth. Current IV steroids, Diamox, duo nebs, Pulmicort and Protonix. Also on antic oagulation with Eliquis No fever no chills. No nausea vomiting or abdominal pain or diarrhea. Patient is tolerating oral diet intermittently. current medications reviewed. Objective - Vital Signs Vital signs: Vital Signs Temp 98.3 F 06/15/21 20:00 Pulse 91 06/15/21 20:00 Resp 18 06/15/21 20:00 BP 157/83 06/15/21 20:00 Pulse Ox 96 06/15/21 20:00 Intake & Output 06/15/21 06/15/21 06/16/21 06:59 18:59 06:59 Intake Total 240 215.15 23.836 Output Total 801 700 Balance -561 -484.85 23.836 Intake: Intake, IV Titration 15.15 23.836 Amount Insulin Regular 100 unit 15.15 23.836 In Sodium Chloride 0.9% 100 ml @ Per Protocol IV .Q0M [facility] Rx#:[id number] Oral 240 200 Output: Urine 800 700 Stool 1 Other: # Bowel Movements 1 - Exam PHYSICAL EXAMINATION: Patient is lying in the bed comfortably, no acute distress, awake alert and oriented.. HEENT: Normocephalic. Neck is supple. Pupils reactive. Nostrils clear. Oral cavity is moist. Neck reveals no JVD, carotid bruits, or thyromegaly. CHEST EXAMINATION: Trachea is central. Symmetrical expansion. Bilateral diminished sounds and expiratory wheeze. Nonlabored breathing. CARDIAC: Normal S1, S2 with no gallops. No murmurs ABDOMEN: Soft. Bowel sounds normal. No organomegaly. No abdominal bruits. Extremities: reveal no edema. No clubbing or cyanosis Neurologically awake, alert, oriented x3 with well-coordinated movements. No focal deficits noted Skin: No rash or skin lesions. Psychiatric: Coperative. Nonsuicidal Musculoskeletal: No joint swelling or deformity. Normal range of motion. - Labs CBC & Chem 7: 06/16/21 05:38 06/16/21 15:33 Labs: Abnormal Lab Results - Last 24 Hours (Table) 06/15/21 06/15/21 06/15/21 Range/Units 05:39 06:55 06:59 WBC 11.6 H (3.8-10.6) k/uL MCHC 30.6 L (31.0-37.0) g/dL Neutrophils # 10.8 H (1.3-7.7) k/uL Lymphocytes # 0.4 L (1.0-4.8) k/uL Sodium 134 L (137-145) mmol/L Potassium 3.1 L (3.5-5.1) mmol/L Chloride 79 L (98-107) mmol/L Carbon Dioxide 53 H* (22-30) mmol/L BUN 27 H (9-20) mg/dL Glucose 263 H (74-99) mg/dL POC Glucose (mg/dL) 291 H (75-99) mg/dL 06/15/21 06/15/21 06/15/21 Range/Units 11:56 16:40 18:17 WBC (3.8-10.6) k/uL MCHC (31.0-37.0) g/dL Neutrophils # (1.3-7.7) k/uL Lymphocytes # (1.0-4.8) k/uL Sodium (137-145) mmol/L Potassium (3.5-5.1) mmol/L Chloride (98-107) mmol/L Carbon Dioxide (22-30) mmol/L BUN (9-20) mg/dL Glucose (74-99) mg/dL POC Glucose (mg/dL) 421 H 418 H 415 H (75-99) mg/dL 06/15/21 06/15/21 06/15/21 Range/Units 18:44 18:45 19:22 WBC (3.8-10.6) k/uL MCHC (31.0-37.0) g/dL Neutrophils # (1.3-7.7) k/uL Lymphocytes # (1.0-4.8) k/uL Sodium (137-145) mmol/L Potassium 2.7 L* (3.5-5.1) mmol/L Chloride (98-107) mmol/L Carbon Dioxide (22-30) mmol/L BUN (9-20) mg/dL Glucose (74-99) mg/dL POC Glucose (mg/dL) 364 H 262 H (75-99) mg/dL 06/15/21 Range/Units 20:03 WBC (3.8-10.6) k/uL MCHC (31.0-37.0) g/dL Neutrophils # (1.3-7.7) k/uL Lymphocytes # (1.0-4.8) k/uL Sodium (137-145) mmol/L Potassium (3.5-5.1) mmol/L Chloride (98-107) mmol/L Carbon Dioxide (22-30) mmol/L BUN (9-20) mg/dL Glucose (74-99) mg/dL POC Glucose (mg/dL) 179 H (75-99) mg/dL Microbiology - Last 24 Hours (Table) 06/12/21 21:04 Blood Culture - Preliminary Blood No Growth after 48 hours Assessment and Plan Assessment: Acute on chronic hypoxic and hypercapnic respiratory failure secondary to severe COPD exacerbation and diffuse interstitial edema. Recent admission with acute COPD exacerbation and right lower lobe pneumonia with sputum cultures positive for Pseudomonas, completed antibiotic course with IV meropenem. Chronic hypoxic respiratory failure on 4 L oxygen with another cannula Severe COPD with baseline FEV1 of 90% of predicted. Paroxysmal atrial fibrillation on anticoagulation with Eliquis and rate controlled with Cardizem. Brandon 1 antitrypsin deficiency History of smoking Hypertension Plan: Patient is currently on BiPAP. Continue with oxygen supplementation, DuoNeb's and methylprednisolone 40 mg every 8 hourly.. Added Pulmicort and Perforomist. Lasix changed to IV 40 mg daily--PO Continue with acetazolamide Follow-up sputum cultures and started on meropenem due to previous Pseudomonas in the sputum cultures. cx negative so far Continue with home medications including Eliquis and Cardizem. Prognosis is guarded with poor functional status and comorbid conditions. Pulmonary is on board. .
--- NOTE | 2021-06-17 11:10 | P.PN ---
Subjective Progress Note Date: 06/17/21 Principal diagnosis: COPD exacerbation This is a 55-year-old male patient who is well-known to our service for his history of alpha-1 antitrypsin deficiency, severe COPD/emphysema with a baseline FEV1 of 19% of predicted and DLCO of 40% of predicted. Patient is on oxygen usually wears 4 L/m during the day, he is also on Trilogy ventilator at home on AVAPS setting. Other medical history includes [id number] smoking history, in addition he had smoked marijuana, hypertension, paroxysmal atrial fibrillation/atrial flutter patient is on oral anticoagulation, secondary pulmo nary hypertension, pericardial calcifications compatible with prior pericarditis and possibility of restrictive pericarditis, history of pseudomonal pulmonary infections most recently his sputum cultures showed resistant strain of pseudomonas aeruginosa. Patient had completed outpatient course of meropenem. He also had a recent hospitalization and was discharged home on 06/06/2021. His stated that he is in palliative care however he has been agreeable to hospitalization. He is being seen in consultation this morning, is lethargic, but arousable, he is currently on BiPAP support with pressures of 12 and 6 and FiO2 of 40%, he states he does not know why he ended up back in the hospital. He denies any fever or chills at home, his cough is not any worse than usual, he is able to produce some phlegm which is yellowish in color, no hemoptysis, no complaints of chest pain. From the ER documentation patient was brought in per EMS on 06/12/2021 for evaluation of difficulty breathing. Patient's was concerned about his increased confusion yesterday morning, he was overly sleepy and falling asleep during his breathing treatments. She did place him on Trilogy vent support, however it is not clear whether she just put him on his original AVAPS mode or place him on BiPAP support with original FiO2 of 50%, she called EMS. When EMS arrived his pulse ox was 55%, patient was placed on BiPAP support and brought to the hospital. Patient states there have not been any other changes from his most previous hospitalization. His chest x-ray shows diffuse pulmonary interstitial edema which increased slightly compared to his most recent examination, no pleural fluid. Patient after his last admission was sent home on maintenance dose of Lasix 40 mg daily in addition to Diamox 250 mg daily which he states he has been compliant with. We did not think he had an active pulmonary infection at that time, and he had recently completed his course of meropenem. PO2 of 66, pCO2 of 106, and patient's son 0.35, and this was done on BiPAP settings and FiO2 of 40%. He was tested again for COVID-19 and was found to be negative. His blood work showed a white blood cell count of 13.6, hemoglobin of 14.2, neutrophil count is 11.4 has increased from last admission, sodium is 136, potassium is 4.3, chloride is 82, CO2 is 48, BUN of 22, creatinine 0.5 to, AST is 29, ALT is 69, alk phos was 173, his troponin was 0.046, proBNP level was 437. On examination patient has increased swelling in his pedal and ankle edema, is currently in atrial flutter with a controlled rate, he is on Eliquis for chronic anticoagulation, he is on Cardizem CD 360 mg daily for rate control, his most recent echocardiogram from 05/13/2021 showed normal LV function with EF of greater than 55%, mild MR, mild TR, right ventricular systolic pressure less than 35 mmHg. Patient was started on nebulized bronchodilators, IV steroids, his Diamox has been restarted and he was given a dose of IV Lasix in the emergency department. Seems to be breathing comfortably, he is arousable to voice, answers simple questions. Vital signs have been stable while in the emergency department, he has had no fever or chills, blood pressure stable. The patient is seen today 06/14/2021 in follow-up on the selective care unit. He is currently resting fairly comfortably in bed. Still dyspneic with exertion, dyspneic with conversation. Currently off the BiPAP. It utilizes last night 12/6 and 40% FiO2. Currently on 5 L/m per nasal cannula. Given diuretics yesterday. Chest x-ray reveals chronic parenchymal changes with areas of acute or atypical infiltrate in the lower lungs particularly the right lower lobe. No significant change compared to previous. No cardiomegaly or pericardial effusion seen. Blood culture reveals no growth. He count 11.3. Hemoglobin 13.1. Lymphocytes 0.6. Sodium 135. Potassium 3.3. Bicarb 48. Creatinine 0.65. He remains on DuoNeb inhalations, Pulmicort and Perforomist inhalations, IV Solu-Medrol. Continues on Diamox. IV Lasix given this morning. Anticoagulated with Eliquis. The patient is seen today 06/15/2021 in follow-up on the selective care unit. He is currently resting fairly comfortably in bed. Awake and alert in mild respiratory distress. Currently on BiPAP 12/6 and 40% FiO2. A culture reveals no growth. White count 11.6. Hemoglobin 13.2. Platelets 296. Lymphocytes 0.4. Sodium 134. Potassium 3.1. Bicarb 53. Creatinine 0.74. Glucose 263. He is continued on DuoNeb inhalations, Pulmicort and Perforomist inhalations, IV Solu-Medrol, oral diuretics, Diamox. Anticoagulated with Eliqis. The patient is seen today 06/16/2021 in follow-up on the selective care unit. He is currently resting in bed. He is awake, alert. No acute distress. Currently on the BiPAP at 12/6 and 40% FiO2. He states he was off for breakfast and is doing or time off the BiPAP. Otherwise, he is on 5 L/m per nasal cannula to maintain O2 saturation in the low 90s. He's been afebrile. Hemodynamically stable. He is requiring an insulin drip currently at 4 units per hour. Blood glucose 236. White count 16.0. Hemoglobin 11.9. Sodium 135. Potassium 3.7. Bicarb 48. Creatinine 0.55. He remains on DuoNeb inhalations, Pulmicort inhalations, IV Solu-Medrol at 40 mg IV every 8 hours. Oral diuretics. Anticoagulated with Eliquis. The patient is seen today 06/17/2021 in follow-up on the selective care unit. He sitting up in bed. Awake and alert in no acute distress. Currently off BiPAP and on 5 L nasal cannula. Doing about the same. Nearly back to his baseline. He remains quite weak. Glucose 181. He is off the insulin drip. He is on prednisone along with his bronchodilators. Anticoagulated with Eliquis. He remains on Diamox. Objective - Vital Signs Vital signs: Vital Signs Temp 98.5 F 06/17/21 08:00 Pulse 88 06/17/21 08:02 Resp 20 06/17/21 09:08 BP 124/64 06/17/21 08:00 Pulse Ox 92 L 06/17/21 09:08 Intake & Output 06/16/21 06/17/21 06/17/21 18:59 06:59 18:59 Intake Total 885.704 118 Output Total 500 575 700 Balance 385.704 -575 -582 Weight 65 kg Intake: Intake, IV Titration 35.704 Amount Insulin Regular 100 unit 35.704 In Sodium Chloride 0.9% 100 ml @ Per Protocol IV .Q0M [facility] Rx#:[id number] Oral 850 118 Output: Urine 500 575 700 Other: Voiding Method Urinal # Voids 1 1 - Exam GENERAL EXAM: A very pleasant, 55-year-old male patient, currently on 5 L nasal cannula, fairly comfortable in no apparent distress. HEAD: Normocephalic/atraumatic. EYES: Normal reaction of pupils, equal size. Conjunctiva pink, sclera white. NOSE: Clear with pink turbinates. THROAT: No erythema or exudates. NECK: No masses, no JVD, no thyroid enlargement, no adenopathy. CHEST: No chest wall deformity. Symmetrical expansion. LUNGS: Equal air entry with very diminished breath sounds bilaterally CVS: Regular rate and rhythm, normal S1 and S2, no gallops, no murmurs, no rubs ABDOMEN: Soft, nontender. No hepatosplenomegaly, normal bowel sounds, no guarding or rigidity. EXTREMITIES: No clubbing, 1+ lower extremity edema, 1+ ankle and pedal edema, no cyanosis, 2+ pulses and upper and lower extremities. MUSCULOSKELETAL: Muscle strength and tone normal. SPINE: No scoliosis or deformity SKIN: No rashes CENTRAL NERVOUS SYSTEM:lethargic but arousable. No focal deficits, tone is normal in all 4 extremities. - Labs CBC & Chem 7: 06/16/21 05:38 06/16/21 15:33 Labs: Abnormal Lab Results - Last 24 Hours (Table) 06/16/21 06/16/21 06/16/21 Range/Units 05:35 11:35 13:25 POC Glucose (mg/dL) 254 H 294 H (75-99) mg/dL Hemoglobin A1c 8.7 H (4.0-6.0) % 06/16/21 06/16/21 06/16/21 Range/Units 16:16 17:36 20:52 POC Glucose (mg/dL) 126 H 220 H 187 H (75-99) mg/dL Hemoglobin A1c (4.0-6.0) % 06/17/21 06/17/21 Range/Units 07:11 08:56 POC Glucose (mg/dL) 140 H 181 H (75-99) mg/dL Hemoglobin A1c (4.0-6.0) % Microbiology - Last 24 Hours (Table) 06/12/21 21:04 Blood Culture - Preliminary Blood No Growth after 96 hours Assessment and Plan Assessment: 1 Acute on chronic hypoxic respiratory failure related to acute exacerbation of COPD, with a possibility of mild fluid overload versus interstitial pneumonia, although his proBNP level was not elevated at 434, however has increased since last admission, and patient presented with signs of fluid overload including increased lower extremity edema, and interstitial edema on his chest x-ray. Patient does have history of restrictive pericarditis with evidence of pericardial calcifications noted on his CT chest previously. COVID-19 n PCR was negative 2 Recent hospitalization for acute exacerbation of COPD and fluid overload, no evidence of infection during that admission. Patient was discharged home on maintenance dose of oral Lasix 40 mg daily, in addition to Diamox 250 mg daily, discharged home on 06/06/2021 and 3 Recent right lower lobe pneumonia with sputum cultures positive for pseudomonas aeruginosa, patient had completed outpatient course of IV meropenem 4 Severe COPD with baseline FEV1 of 19% of predicted, stage IV COPD on home oxygen at 4 L, and Trilogy vent at AVAPS settings, patient had a chronic CO2 retainer, he was not a candidate for endobronchial Medina valve insertion related to chronic hypercapnic respiratory failure 5 History of smoking, 36 pack years, in remission for 1 year, 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 Land Cleared for discharge from the pulmonary standpoint DO NOT INTUBATE CODE STATUS, palliative care at home Titrate the FiO2 as tolerated I, the cosigning physician, performed a history & physical examination of the patient. Lungs sounds are very diminished throughout. Maintaining good O2 saturations in the 90s on BiPAP 12/6 at 40% FiO2 alternating with 5 L/m per nasal cannula. I discussed the assessment and plan of care with my nurse practitioner, Estephania Aldridge. I attest to the above note as dictated by her.
[2021-06-17] MEDS: ALPRAZolam 0.5 MG TAB PO PRN (12:16)
[2021-06-17 12:26] LABS: Glucose,Whole Blood 138 mg/dL (75-99)
[2021-06-17] MEDS ORDERED: diphenhydrAMINE 50 MG CAP PO PRN (13:23)
[2021-06-17 15:25] VITALS: BP 111/59
[2021-06-17 15:44] VITALS: PULSE 90
[2021-06-17] MEDS ORDERED: SIMETHICONE 80 MG CHEWABLE PO SCH (16:00)
--- NOTE | 2021-06-25 22:24 | P.PN ---
Subjective Progress Note Date: 06/16/21 Principal diagnosis: Acute on chronic hypoxic and hypercapnic respiratory failure secondary to severe COPD exacerbation and diffuse interstitial edema. Patient is a 55-year-old male with a known history of COPD/ emphysema, paroxysmal atrial fibrillation on anticoagulation with Eliquis, also 1 antitrypsin deficiency, previous history of smoking presents to ER with complaints of worsening shortness of breath. Patient is on 4 L oxygen by nasal cannula. Patient is currently taking prednisone tapering course prior to admission. Patient was brought to the hospital by his and also states that he was acting confused since morning. He is becoming more sleepy and falling asleep during his breathing treatments. She did place him on his home BiPAP and oxygen saturations were down to 50%. She called ambulance and depression was brought to the hospital. Patient follows with Dr. Mendoza as an outpatient. Patient denied any fever or chills. Cough without sputum production. No complaints of chest pain. Denied any recent illnesses. No nausea vomiting abdominal pain or diarrhea. No dysuria or hematuria. Chest x-ray showed diffuse pulmonary interstitial edema is increased slightly compared to last exam. No pleural fluid seen to suggest heart failure. Next and EKG showed normal sinus rhythm. ABG showed pH of 7.35 pCO2 106 pO2 66 Laboratory data showed the visit that 0.6 hemoglobin 14.2 and platelets 335 Sodium 136 potassium 4.3 chloride 82 bicarb is 48 BUN 22 and creatinine 0.52 Troponin 0.046, 0.039 and 0.030 ProBNP 437 COVID-19 not detected 06/14/2021 Patient is currently in the telemetry unit. Lying in the bed. Awake alert oriented x3. Requiring BiPAP on and off. Currently on oxygen via nasal cannula. Chest x-ray showed chronic parenchymal changes with areas of acute atypical infiltrate in the lower lung. No significant change compared to previous. Laboratory showed WBC 11.3 hemoglobin 13.1, platelets 268 Sodium 135 potassium 3.3 chloride 88 bicarb is 48 BUN 25 creatinine 0.64 and blood sugar is 58 Patient is being continued on IV Solu-Medrol Pulmicort Perforomist and duo nebs. Continue on anticoagulation with Eliquis. Pulmonary is on board. 06/15/2021 Patient currently resting in the bed comfortably. No complaints of chest pain or worsening shortness of breath. On BiPAP 12 x 6 and FiO2 40%. Patient is maintained on IV Lasix changed to by mouth. Current IV steroids, Diamox, duo nebs, Pulmicort and Protonix. Also on antic oagulation with Eliquis No fever no chills. No nausea vomiting or abdominal pain or diarrhea. Patient is tolerating oral diet intermittently. 06/16/2021 Patient is currently in the select care unit. On oxygen via nasal cannula. Awake alert and oriented x3. Patient is using BiPAP on and off. Patient does have BiPAP machine at home. Currently on 5 L oxygen via nasal cannula. Denies any complaints of chest pain or worsening shortness of breath. Breathing status seems to be better today. Patient is being continued on duo nebs, Pulmicort, IV Solu-Medrol 40 mg every 8 hourly and is also on oral diuretics. On anticoagulation with Eliquis due to paroxysmal atrial fibrillation. Patient does have hyperglycemia likely due to steroid use with uncontrolled diabetes type 2 was started on insulin drip for better blood sugar control. Laboratory data showed WBC 16.0 hemoglobin 11.9 sodium 135 potassium 3.7 bicarb 48 creatinine 0.55. current medications reviewed. Objective - Vital Signs Vital signs: Vital Signs Temp 97.8 F 06/16/21 15:26 Pulse 80 06/16/21 15:36 Resp 24 06/16/21 15:36 BP 132/84 06/16/21 15:26 Pulse Ox 97 06/16/21 15:26 Intake & Output 06/15/21 06/16/21 06/16/21 18:59 06:59 18:59 Intake Total 215.15 868.928 508.147 Output Total 700 950 500 Balance -484.85 -81.072 8.147 Weight 65 kg Intake: Intake, IV Titration 15.15 28.928 18.147 Amount Insulin Regular 100 unit 15.15 28.928 18.147 In Sodium Chloride 0.9% 100 ml @ Per Protocol IV .Q0M [facility] Rx#:[id number] Oral 200 840 490 Output: Urine 700 950 500 Other: Voiding Method Urinal # Bowel Movements 1 - Exam PHYSICAL EXAMINATION: Patient is lying in the bed comfortably, no acute distress, awake alert and oriented.. HEENT: Normocephalic. Neck is supple. Pupils reactive. Nostrils clear. Oral cavity is moist. Neck reveals no JVD, carotid bruits, or thyromegaly. CHEST EXAMINATION: Trachea is central. Symmetrical expansion. Bilateral diminished sounds and expiratory wheeze. Nonlabored breathing. CARDIAC: Normal S1, S2 with no gallops. No murmurs ABDOMEN: Soft. Bowel sounds normal. No organomegaly. No abdominal bruits. Extremities: reveal no edema. No clubbing or cyanosis Neurologically awake, alert, oriented x3 with well-coordinated movements. No focal deficits noted Skin: No rash or skin lesions. Psychiatric: Coperative. Nonsuicidal Musculoskeletal: No joint swelling or deformity. Normal range of motion. - Labs CBC & Chem 7: 06/16/21 05:38 06/16/21 15:33 Labs: Abnormal Lab Results - Last 24 Hours (Table) 06/15/21 06/15/21 06/15/21 Range/Units 16:40 18:17 18:44 WBC (3.8-10.6) k/uL RBC (4.30-5.90) m/uL Hgb (13.0-17.5) gm/dL Hct (39.0-53.0) % Neutrophils # (1.3-7.7) k/uL Lymphocytes # (1.0-4.8) k/uL Sodium (137-145) mmol/L Potassium 2.7 L* (3.5-5.1) mmol/L Chloride (98-107) mmol/L Carbon Dioxide (22-30) mmol/L BUN (9-20) mg/dL Creatinine (0.66-1.25) mg/dL POC Glucose (mg/dL) 418 H 415 H (75-99) mg/dL Hemoglobin A1c (4.0-6.0) % 06/15/21 06/15/21 06/15/21 Range/Units 18:45 19:22 20:03 WBC (3.8-10.6) k/uL RBC (4.30-5.90) m/uL Hgb (13.0-17.5) gm/dL Hct (39.0-53.0) % Neutrophils # (1.3-7.7) k/uL Lymphocytes # (1.0-4.8) k/uL Sodium (137-145) mmol/L Potassium (3.5-5.1) mmol/L Chloride (98-107) mmol/L Carbon Dioxide (22-30) mmol/L BUN (9-20) mg/dL Creatinine (0.66-1.25) mg/dL POC Glucose (mg/dL) 364 H 262 H 179 H (75-99) mg/dL Hemoglobin A1c (4.0-6.0) % 06/15/21 06/16/21 06/16/21 Range/Units 22:10 00:00 00:34 WBC (3.8-10.6) k/uL RBC (4.30-5.90) m/uL Hgb (13.0-17.5) gm/dL Hct (39.0-53.0) % Neutrophils # (1.3-7.7) k/uL Lymphocytes # (1.0-4.8) k/uL Sodium (137-145) mmol/L Potassium 3.1 L (3.5-5.1) mmol/L Chloride (98-107) mmol/L Carbon Dioxide (22-30) mmol/L BUN (9-20) mg/dL Creatinine (0.66-1.25) mg/dL POC Glucose (mg/dL) 44 L 111 H (75-99) mg/dL Hemoglobin A1c (4.0-6.0) % 06/16/21 06/16/21 06/16/21 Range/Units 01:53 03:35 05:35 WBC (3.8-10.6) k/uL RBC (4.30-5.90) m/uL Hgb (13.0-17.5) gm/dL Hct (39.0-53.0) % Neutrophils # (1.3-7.7) k/uL Lymphocytes # (1.0-4.8) k/uL Sodium (137-145) mmol/L Potassium (3.5-5.1) mmol/L Chloride (98-107) mmol/L Carbon Dioxide (22-30) mmol/L BUN (9-20) mg/dL Creatinine (0.66-1.25) mg/dL POC Glucose (mg/dL) 73 L 68 L (75-99) mg/dL Hemoglobin A1c 8.7 H (4.0-6.0) % 06/16/21 06/16/21 06/16/21 Range/Units 05:38 05:38 08:07 WBC 16.0 H (3.8-10.6) k/uL RBC 3.91 L (4.30-5.90) m/uL Hgb 11.9 L (13.0-17.5) gm/dL Hct 36.5 L (39.0-53.0) % Neutrophils # 14.8 H (1.3-7.7) k/uL Lymphocytes # 0.6 L (1.0-4.8) k/uL Sodium 135 L (137-145) mmol/L Potassium (3.5-5.1) mmol/L Chloride 86 L (98-107) mmol/L Carbon Dioxide 48 H* (22-30) mmol/L BUN 24 H (9-20) mg/dL Creatinine 0.55 L (0.66-1.25) mg/dL POC Glucose (mg/dL) 105 H (75-99) mg/dL Hemoglobin A1c (4.0-6.0) % 06/16/21 06/16/21 06/16/21 Range/Units 09:28 10:25 11:35 WBC (3.8-10.6) k/uL RBC (4.30-5.90) m/uL Hgb (13.0-17.5) gm/dL Hct (39.0-53.0) % Neutrophils # (1.3-7.7) k/uL Lymphocytes # (1.0-4.8) k/uL Sodium (137-145) mmol/L Potassium (3.5-5.1) mmol/L Chloride (98-107) mmol/L Carbon Dioxide (22-30) mmol/L BUN (9-20) mg/dL Creatinine (0.66-1.25) mg/dL POC Glucose (mg/dL) 236 H 275 H 254 H (75-99) mg/dL Hemoglobin A1c (4.0-6.0) % 06/16/21 Range/Units 13:25 WBC (3.8-10.6) k/uL RBC (4.30-5.90) m/uL Hgb (13.0-17.5) gm/dL Hct (39.0-53.0) % Neutrophils # (1.3-7.7) k/uL Lymphocytes # (1.0-4.8) k/uL Sodium (137-145) mmol/L Potassium (3.5-5.1) mmol/L Chloride (98-107) mmol/L Carbon Dioxide (22-30) mmol/L BUN (9-20) mg/dL Creatinine (0.66-1.25) mg/dL POC Glucose (mg/dL) 294 H (75-99) mg/dL Hemoglobin A1c (4.0-6.0) % Microbiology - Last 24 Hours (Table) 06/12/21 21:04 Blood Culture - Preliminary Blood No Growth after 72 hours Assessment and Plan Assessment: Acute on chronic hypoxic and hypercapnic respiratory failure secondary to severe COPD exacerbation and diffuse interstitial edema. Recent admission with acute COPD exacerbation and right lower lobe pneumonia with sputum cultures positive for Pseudomonas, completed antibiotic course with IV meropenem. Chronic hypoxic respiratory failure on 4 L oxygen with another cannula Severe COPD with baseline FEV1 of 90% of predicted. Paroxysmal atrial fibrillation on anticoagulation with Eliquis and rate controlled with Cardizem. Brandon 1 antitrypsin deficiency History of smoking Hypertension Plan: Patient is on BiPAP on and off. Continue with oxygen supplementation, DuoNeb's and methylprednisolone 40 mg every 8 hourly.. Added Pulmicort and Perforomist. Lasix changed to IV 40 mg daily--PO Continue with acetazolamide Follow-up sputum cultures and started on meropenem due to previous Pseudomonas in the sputum cultures. cx negative so far Continue with home medications including Eliquis and Cardizem. Prognosis is guarded with poor functional status and comorbid conditions. Pulmonary is on board. . Time with Patient: Greater than 30
--- NOTE | 2021-06-29 07:39 | P.DS ---
Providers Date of admission: 06/12/21 20:55 Expected date of discharge: 06/17/21 Attending physician: George Guerra Consults: 06/12/21 20:57 Consult Physician Urgent Consulting Provider: Pavel Mendoza Consult Reason/Comments: acute/chronic respiratory failure Do you want consulting provider notified?: Yes Primary care physician: [facility] Course: Acute on chronic hypoxic and hypercapnic respiratory failure secondary to severe COPD exacerbation and diffuse interstitial edema. Patient is a 55-year-old male with a known history of COPD/ emphysema, paroxysmal atrial fibrillation on anticoagulation with Eliquis, also 1 antitrypsin deficiency, previous history of smoking presents to ER with complaints of worsening shortness of breath. Patient is on 4 L oxygen by nasal cannula. Patient is currently taking prednisone tapering course prior to admission. Patient was brought to the hospital by his and also states that he was acting confused since morning. He is becoming more sleepy and falling asleep during his breathing treatments. She did place him on his home BiPAP and oxygen saturations were down to 50%. She called ambulance and depression was brought to the hospital. Patient follows with Dr. Mendoza as an outpatient. Patient denied any fever or chills. Cough without sputum production. No complaints of chest pain. Denied any recent illnesses. No nausea vomiting abdominal pain or diarrhea. No dysuria or hematuria. Chest x-ray showed diffuse pulmonary interstitial edema is increased slightly compared to last exam. No pleural fluid seen to suggest heart failure. Next and EKG showed normal sinus rhythm. ABG showed pH of 7.35 pCO2 106 pO2 66 Laboratory data showed the visit that 0.6 hemoglobin 14.2 and platelets 335 Sodium 136 potassium 4.3 chloride 82 bicarb is 48 BUN 22 and creatinine 0.52 Troponin 0.046, 0.039 and 0.030 ProBNP 437 COVID-19 not detected 06/14/2021 Patient is currently in the telemetry unit. Lying in the bed. Awake alert oriented x3. Requiring BiPAP on and off. Currently on oxygen via nasal cannula. Chest x-ray showed chronic parenchymal changes with areas of acute atypical infiltrate in the lower lung. No significant change compared to previous. Laboratory showed WBC 11.3 hemoglobin 13.1, platelets 268 Sodium 135 potassium 3.3 chloride 88 bicarb is 48 BUN 25 creatinine 0.64 and blood sugar is 58 Patient is being continued on IV Solu-Medrol Pulmicort Perforomist and duo nebs. Continue on anticoagulation with Eliquis. Pulmonary is on board. 06/15/2021 Patient currently resting in the bed comfortably. No complaints of chest pain or worsening shortness of breath. On BiPAP 12 x 6 and FiO2 40%. Patient is maintained on IV Lasix changed to by mouth. Current IV steroids, Diamox, duo nebs, Pulmicort and Protonix. Also on anticoagulation with Eliquis No fever no chills. No nausea vomiting or abdominal pain or diarrhea. Patient is tolerating oral diet intermittently. 06/16/2021 Patient is currently in the select care unit. On oxygen via nasal cannula. Awake alert and oriented x3. Patient is using BiPAP on and off. Patient does have BiPAP machine at home. Currently on 5 L oxygen via nasal cannula. Denies any complaints of chest pain or worsening shortness of breath. Breathing status seems to be better today. Patient is being continued on duo nebs, Pulmicort, IV Solu-Medrol 40 mg every 8 hourly and is also on oral diuretics. On anticoagulation with Eliquis due to paroxysmal atrial fibrillation. Patient does have hyperglycemia likely due to steroid use with uncontrolled diabetes type 2 was started on insulin drip for better blood sugar control. Laboratory data showed WBC 16.0 hemoglobin 11.9 sodium 135 potassium 3.7 bicarb 48 creatinine 0.55. 06/17/21 Cleared for discharge from the pulmonary standpoint Patient Condition at Discharge: Serious Plan - Discharge Summary Discharge Rx Participant: No New Discharge Prescriptions: New Simethicone Chew [Mylicon Chew] 160 mg PO TID #0 tab predniSONE [Deltasone] 40 mg PO DAILY 7 Days #10 tab Continue Fluticasone/Umeclidin/Vilanter [Trelegy Ellipta 100-62.5-25] 1 puff INHALATION RT-DAILY Albuterol Sulfate [Ventolin HFA] 2 puff INHALATION RT-Q4H PRN PRN Reason: Shortness Of Breath Melatonin 10 mg PO HS Vitamin B Complex 1 cap PO DAILY Multivitamins, Thera [Multivitamin (formulary)] 1 tab PO DAILY Ascorbic Acid [Vitamin C] 1,000 mg PO DAILY Tamsulosin [Flomax] 0.4 mg PO PC-SUPPER 30 Days #30 tab Albuterol Nebulized [Ventolin Nebulized] 2.5 mg INHALATION RT-QID 30 Days #90 ml Albuterol Nebulized [Ventolin Nebulized] 2.5 mg INHALATION RT-Q2H PRN ml PRN Reason: Shortness Of Breath Or Wheezing acetaZOLAMIDE [Diamox] 250 mg PO DAILY 30 Days #30 tab predniSONE See Taper PO DAILY Apixaban [Eliquis] 5 mg PO BID #60 tab Mirtazapine [Remeron] 7.5 mg PO HS Loratadine [Claritin] 10 mg PO DAILY ALPRAZolam [Xanax] 0.5 mg PO TID PRN PRN Reason: Anxiety Famotidine [Pepcid] 20 mg PO DAILY Cholecalciferol [Vitamin D3 (25 Mcg = 1000 Iu)] 25 mcg PO DAILY Sertraline [Zoloft] 50 mg PO DAILY Diltiazem Cd [Cardizem CD] 360 mg PO DAILY 30 Days #120 cap Acetaminophen Tab [Tylenol] 650 mg PO Q6HR PRN tab PRN Reason: Mild Pain Or Fever > 100.5 Furosemide [Lasix] 40 mg PO DAILY 30 Days #60 tab Discharge Medication List Albuterol Sulfate [Ventolin HFA] 2 puff INHALATION RT-Q4H PRN 02/18/20 [History] Fluticasone/Umeclidin/Vilanter [Trelegy Ellipta 100-62.5-25] 1 puff INHALATION RT-DAILY 02/18/20 [History] Apixaban [Eliquis] 5 mg PO BID #60 tab 11/24/20 [Rx] Mirtazapine [Remeron] 7.5 mg PO HS 11/27/20 [History] ALPRAZolam [Xanax] 0.5 mg PO TID PRN 01/23/21 [History] Loratadine [Claritin] 10 mg PO DAILY 01/23/21 [History] Melatonin 10 mg PO HS 01/23/21 [History] Ascorbic Acid [Vitamin C] 1,000 mg PO DAILY 03/02/21 [History] Cholecalciferol [Vitamin D3 (25 Mcg = 1000 Iu)] 25 mcg PO DAILY 03/02/21 [History] Famotidine [Pepcid] 20 mg PO DAILY 03/02/21 [History] Multivitamins, Thera [Multivitamin (formulary)] 1 tab PO DAILY 03/02/21 [History] Vitamin B Complex 1 cap PO DAILY 03/02/21 [History] Sertraline [Zoloft] 50 mg PO DAILY 03/26/21 [History] Acetaminophen Tab [Tylenol] 650 mg PO Q6HR PRN tab 05/20/21 [Rx] Albuterol Nebulized [Ventolin Nebulized] 2.5 mg INHALATION RT-Q2H PRN ml 05/20/21 [Rx] Albuterol Nebulized [Ventolin Nebulized] 2.5 mg INHALATION RT-QID 30 Days #90 ml 05/20/21 [Rx] Diltiazem Cd [Cardizem CD] 360 mg PO DAILY 30 Days #120 cap 05/20/21 [Rx] Tamsulosin [Flomax] 0.4 mg PO PC-SUPPER 30 Days #30 tab 05/20/21 [Rx] Furosemide [Lasix] 40 mg PO DAILY 30 Days #60 tab 06/07/21 [Rx] acetaZOLAMIDE [Diamox] 250 mg PO DAILY 30 Days #30 tab 06/07/21 [Rx] predniSONE See Taper PO DAILY 06/12/21 [History] Simethicone Chew [Mylicon Chew] 160 mg PO TID #0 tab 06/17/21 [Rx] predniSONE [Deltasone] 40 mg PO DAILY 7 Days #10 tab 06/17/21 [Rx] Follow up Appointment(s)/Referral(s): Wolf Irizarry MD [Primary Care Provider] - 1-2 days [facility], [NON-STAFF] - Patient Instructions/Handouts: COPD (Chronic Obstructive Pulmonary Disease) (DC) Activity/Diet/Wound Care/Special Instructions: Patient needs scripts for any nebulizer medications at discharge - he has nebulizer but no meds at home Patient requires a hospital bed because his head of bed needs to be elevated more than 30 degrees most of the time to alleviate dyspnea from COPD Hospital Bed ordered from [facility] - [phone] Discharge Disposition: HOME SELF-CARE
== END 2021-06-17 16:13 | disposition home or self-care (01) | DRG 190 ==
LOC: EC 18:56 → 3SCARD 20:55
PROVIDERS: ADMIT Internal Medicine; ATTEND Internal Medicine
PROC: 5A09557 Assistance with Respiratory Ventilation, Greater than 96 Consecutive Hours, Continuous Positive Airway Pressure (ICD-10-PCS; principal; 2021-06-12)
DX: J43.9 Emphysema, unspecified (principal); J96.21 Acute and chronic respiratory failure with hypoxia; J96.22 Acute and chronic respiratory failure with hypercapnia; J18.9 Pneumonia, unspecified organism; I48.92 Unspecified atrial flutter; F32.9 Major depressive disorder, single episode, unspecified; I10 Essential (primary) hypertension; I27.29 Other secondary pulmonary hypertension; I48.0 Paroxysmal atrial fibrillation; Z20.822 Contact with and (suspected) exposure to COVID-19; Z51.5 Encounter for palliative care; Z79.01 Long term (current) use of anticoagulants; Z79.899 Other long term (current) drug therapy; Z82.49 Family history of ischemic heart disease and other diseases of the circulatory system; Z87.891 Personal history of nicotine dependence; Z99.81 Dependence on supplemental oxygen; Z88.0 Allergy status to penicillin; Z88.8 Allergy status to other drugs, medicaments and biological substances; E11.65 Type 2 diabetes mellitus with hyperglycemia; T38.0X5A Adverse effect of glucocorticoids and synthetic analogues, initial encounter
CPT/HCPCS: 36410; 36415; 36600; 71045; 76937; 80048; 80053; 82805; 83036; 83605; 83735; 83880; 84132; 84145; 84484; 85025; 87040; 87635; 93005; 94640; 94660; 96365; 96375; 99285